=== PATIENT | female | born 1945 | race Caucasian/White ===

== ENCOUNTER 2018-06-25 11:42 | Inpatient (IN) ==
[2018-06-25] MEDS ORDERED: Sod Chloride 0.9% Inj 1,000 ML IV.SIG ONE (11:53)
--- NOTE | 2018-06-25 12:09 | ED ---
HPI General Chief complaint: Nausea/Vomiting/Diarrhea Stated complaint: doctor sent Time Seen by Provider: 06/25/18 11:51 Source: patient and family Mode of arrival: wheelchair Limitations: no limitations History of Present Illness HPI Narrative: 72-year-old female that presents to the ED for evaluation of hypotension as well as dehydration. Patient has a history of antral cancer. She is currently being treated for this. She got chemo and radiation. She last did chemotherapy 2 weeks ago. Per patient since yesterday she is been having no nausea vomiting diarrhea but this has been apparently going for a little longer. Patient denies any chest pain or shortness of breath. She does have some lower abdominal pain which she believes is related to the radiation which she does had last week. She apparently went to see Dr. oliva today and I recommend that she comes here because she was very hypotensive on the exam and she seemed very weak. She did had a blood transfusion on Saturday and she has a history of chronic anemia and iron deficiency. She follows with tyree for this. She denies any trauma or falls. She states that the diarrhea is just liquidy. She states that she currently takes pain pills and she does not really have much pain until she does point to her lower abdomen as the area of pain if she has any. Patient feels like a cramping pain. 2 out of 10. She does have a PICC line. No urinary issues. Related Data Home Medications Medication Instructions Recorded Confirmed cimetidine [Tagamet HB] 200 mg PO TID 06/09/18 06/25/18 levothyroxine [Synthroid] 50 mcg PO DAILY 06/09/18 06/25/18 omeprazole magnesium [Prilosec] 40 mg PO DAILY 06/09/18 06/25/18 zolpidem 12.5 mg PO 06/25/18 Allergies Allergy/AdvReac Type Severity Reaction Status Date / Time No Known Allergies Allergy Verified 06/25/18 12:06 Review of Systems ROS: all other systems reviewed are negative PMFSH History History Provided By: Patient and Family Member Medical History Medical History Cervical cancer (Acute) FH: chemotherapy (Acute) Mixed connective tissue disease (Acute) Rectal cancer (Acute) Social History Social History Substance History: No History of Abuse Second Hand Smoke Exposure: No Smoking Status: Former smoker How Often Do You Have a Drink Containing Alcohol: Never Exam Narrative Exam Narrative: GENERAL: Well appearing SKIN: Focused skin assessment warm/dry. HEAD: Atraumatic. Normocephalic. EYES: Pupils equal and round. No scleral icterus. No injection or drainage. ENT: No nasal bleeding or discharge. Mucous membranes pink and moist. Tongue is midline. No uvula deviation. NECK: Trachea midline. No JVD. CARDIOVASCULAR: Regular rate and rhythm. No murmur appreciated. RESPIRATORY: No accessory muscle use. Clear to auscultation. Breath sounds equal bilaterally. GASTROINTESTINAL: Abdomen soft, tender to touch in the lower abdomen, nondistended. Hepatic and splenic margins not palpable. MUSCULOSKELETAL: No obvious deformities. No clubbing. No cyanosis. No edema. Full range of motion of the upper and lower extremities bilaterally. 2+ pulses bilaterally. NEUROLOGICAL: Awake and alert. No obvious cranial nerve deficits. Motor grossly within normal limits. Normal speech. PSYCHIATRIC: Appropriate mood and affect; insight and judgment normal. Course Initial Documented Vital Signs Temperature 97.5 F L 06/25/18 11:46 Pulse Rate 119 H 06/25/18 11:46 Respiratory Rate 20 06/25/18 11:46 Blood Pressure 70/50 L 06/25/18 11:46 Pulse Oximetry 98 06/25/18 11:46 Last Documented Vital Signs Temperature 98.8 F 06/26/18 04:00 Pulse Rate 115 H 06/26/18 06:00 Respiratory Rate 31 H 06/26/18 06:00 Blood Pressure 90/54 L 06/26/18 06:00 Pulse Oximetry 77 L 06/26/18 02:30 Medical Decision Making SABRINA Attestation SABRINA supervised visit: Yes Attestation: I, Dr. Farfan, have reviewed the advance practice practitioner's documentation and am in agreement, met with the patient face to face, made the diagnosis, and the medical decision making was done by me. *My assessment and Findings: Patient sent to the ED from oncologist office due to weakness. Workup here reveals significant dehydration the patient will be admitted for IV fluids and electrolyte management. Prior VS on record from prior visits demonstrate relative tachycardia in 90s. MDM Narrative Medical decision making narrative: 72-year-old female that presents to the ED for evaluation of hypotension and nausea vomiting diarrhea. Labs and imaging were ordered. Patient was given IV fluids. Labs and imaging showed what appears to be acute kidney injury. Hypokalemia and slight hyponatremia. Patient still somewhat hypotensive but not as severe. Recommendation at this time is for admission for further evaluation and fluids. Patient agrees with this. Patient was admitted to Dr. Harris agrees to admission. My attending Dr. Farfan evaluated the patient himself and agrees with admission plan and treatment plan. Medical Screen Exam Complete: Yes Emergency Medical Condition: Yes Differential Diagnosis Differential Diagnosis: Hypotension versus dehydration versus anemia versus symptomatic anemia versus sepsis Medical Records Medical records reviewed: Yes I reviewed the patient's medical records. Lab Data Lab results reviewed: Yes I reviewed the patient's lab results. Result diagrams: 06/26/18 03:04 06/26/18 03:04 Lab Results 06/25/18 06/25/18 06/25/18 Range/Units 12:10 12:10 12:21 WBC 1.6 L (4.0-11.0) th/mm3 RBC 4.14 (4.00-5.30) mil/mm3 Hgb 10.2 L (11.6-15.3) gm/dL Hct 31.7 L (35.0-46.0) % MCV 76.4 L (80.0-100.0) fL MCH 24.6 L (27.0-34.0) pg MCHC 32.2 (32.0-36.0) % RDW 17.7 H (11.6-17.2) % Plt Count 54 L D (150-450) th/mm3 MPV 9.0 (7.0-11.0) fL Prelim Diff (Auto) Slide review pending Neut % (Auto) 71.3 H (16.0-70.0) % Lymph % (Auto) 1.3 L (9.0-44.0) % Brown % (Auto) 26.7 H (0.0-8.0) % Eos % (Auto) 0.1 (0.0-4.0) % Baso % (Auto) 0.6 (0.0-2.0) % Neut # (Auto) 1.1 L (1.8-7.7) th/mm3 Lymph # (Auto) 0.0 L (1.0-4.8) th/mm3 Brown # (Auto) 0.4 (0.0-0.9) th/mm3 Eos # (Auto) 0.0 (0.0-0.4) th/mm3 Baso # (Auto) 0.0 (0.0-0.2) th/mm3 WBC Differential Manual diff final Seg Neuts % (Manual) 30 (16-70) % Band Neuts % (Manual) 18 H (0-6) % Lymphocytes % (Manual) 3 L (9-44) % Monocytes % (Manual) 44 H (0-8) % Metamyelocytes % (Man) 4 H (0-1) % Myelocytes % (Man) 1 H (0-0) % Abs Neuts (Manual) 0.8 L (1.8-7.7) th/mm3 Differential Comment . Toxic Granulation (None) Dohle Bodies (None) Platelet Estimate Low L (Normal) Platelet Morphology Normal (Normal) RBC Morphology (Normal) Ovalocytes 1+ H (None) Darwin Cells 1+ H (None) Acanthocytes (Spur) Occ H (None) Sodium 134 L (136-145) meq/L Potassium 2.4 L* (3.5-5.1) meq/L Chloride 99 (98-107) meq/L Carbon Dioxide 19.9 L (21.0-32.0) meq/L Anion Gap 15 (5-15) meq/L BUN 57 H (7-18) mg/dL Creatinine 1.36 H (0.50-1.00) mg/dL Estimated GFR 38 L (>89) mL/min Random Glucose 95 (74-106) mg/dL Lactic Acid (0.4-2.0) mmol/L Calcium 7.9 L (8.5-10.1) mg/dL Prot Corrected Calcium (8.5-10.1) mg/dL Total Bilirubin 1.0 (0.2-1.0) mg/dL AST 60 H (15-37) U/L ALT 38 (10-53) U/L Alkaline Phosphatase 27 L (45-117) U/L Total Protein 6.2 L (6.4-8.2) g/dL Albumin 2.1 L (3.4-5.0) g/dL Lipase 25 L (73-393) U/L Nasal Screen MRSA (PCR) (Negative) MTS Gel Crossmatch See Detail 06/25/18 06/25/18 06/26/18 Range/Units 12:25 16:30 03:04 WBC 1.5 L (4.0-11.0) th/mm3 RBC 4.82 (4.00-5.30) mil/mm3 Hgb 12.6 D (11.6-15.3) gm/dL Hct 36.8 (35.0-46.0) % MCV 76.4 L (80.0-100.0) fL MCH 26.2 L (27.0-34.0) pg MCHC 34.3 (32.0-36.0) % RDW 17.5 H (11.6-17.2) % Plt Count 41 L (150-450) th/mm3 MPV 9.0 (7.0-11.0) fL Prelim Diff (Auto) Manual diff required Neut % (Auto) (16.0-70.0) % Lymph % (Auto) (9.0-44.0) % Brown % (Auto) (0.0-8.0) % Eos % (Auto) (0.0-4.0) % Baso % (Auto) (0.0-2.0) % Neut # (Auto) (1.8-7.7) th/mm3 Lymph # (Auto) (1.0-4.8) th/mm3 Brown # (Auto) (0.0-0.9) th/mm3 Eos # (Auto) (0.0-0.4) th/mm3 Baso # (Auto) (0.0-0.2) th/mm3 WBC Differential Manual diff final Seg Neuts % (Manual) 18 (16-70) % Band Neuts % (Manual) 62 H (0-6) % Lymphocytes % (Manual) 2 L (9-44) % Monocytes % (Manual) 16 H (0-8) % Metamyelocytes % (Man) 1 (0-1) % Myelocytes % (Man) 1 H (0-0) % Abs Neuts (Manual) 1.2 L (1.8-7.7) th/mm3 Differential Comment . Toxic Granulation 1+ H (None) Dohle Bodies Present H (None) Platelet Estimate Low L (Normal) Platelet Morphology Enlarged H (Normal) RBC Morphology Normal (Normal) Ovalocytes (None) Darwin Cells (None) Acanthocytes (Spur) (None) Sodium (136-145) meq/L Potassium (3.5-5.1) meq/L Chloride (98-107) meq/L Carbon Dioxide (21.0-32.0) meq/L Anion Gap (5-15) meq/L BUN (7-18) mg/dL Creatinine (0.50-1.00) mg/dL Estimated GFR (>89) mL/min Random Glucose (74-106) mg/dL Lactic Acid 1.5 (0.4-2.0) mmol/L Calcium (8.5-10.1) mg/dL Prot Corrected Calcium (8.5-10.1) mg/dL Total Bilirubin (0.2-1.0) mg/dL AST (15-37) U/L ALT (10-53) U/L Alkaline Phosphatase (45-117) U/L Total Protein (6.4-8.2) g/dL Albumin (3.4-5.0) g/dL Lipase (73-393) U/L Nasal Screen MRSA (PCR) Not detected (Negative) MTS Gel Crossmatch 06/26/18 Range/Units 03:04 WBC (4.0-11.0) th/mm3 RBC (4.00-5.30) mil/mm3 Hgb (11.6-15.3) gm/dL Hct (35.0-46.0) % MCV (80.0-100.0) fL MCH (27.0-34.0) pg MCHC (32.0-36.0) % RDW (11.6-17.2) % Plt Count (150-450) th/mm3 MPV (7.0-11.0) fL Prelim Diff (Auto) Neut % (Auto) (16.0-70.0) % Lymph % (Auto) (9.0-44.0) % Brown % (Auto) (0.0-8.0) % Eos % (Auto) (0.0-4.0) % Baso % (Auto) (0.0-2.0) % Neut # (Auto) (1.8-7.7) th/mm3 Lymph # (Auto) (1.0-4.8) th/mm3 Brown # (Auto) (0.0-0.9) th/mm3 Eos # (Auto) (0.0-0.4) th/mm3 Baso # (Auto) (0.0-0.2) th/mm3 WBC Differential Seg Neuts % (Manual) (16-70) % Band Neuts % (Manual) (0-6) % Lymphocytes % (Manual) (9-44) % Monocytes % (Manual) (0-8) % Metamyelocytes % (Man) (0-1) % Myelocytes % (Man) (0-0) % Abs Neuts (Manual) (1.8-7.7) th/mm3 Differential Comment Toxic Granulation (None) Dohle Bodies (None) Platelet Estimate (Normal) Platelet Morphology (Normal) RBC Morphology (Normal) Ovalocytes (None) Darwin Cells (None) Acanthocytes (Spur) (None) Sodium 141 (136-145) meq/L Potassium 3.5 D (3.5-5.1) meq/L Chloride 109 H D (98-107) meq/L Carbon Dioxide 19.9 L (21.0-32.0) meq/L Anion Gap 12 (5-15) meq/L BUN 56 H (7-18) mg/dL Creatinine 1.36 H (0.50-1.00) mg/dL Estimated GFR 38 L (>89) mL/min Random Glucose 195 H D (74-106) mg/dL Lactic Acid (0.4-2.0) mmol/L Calcium 6.9 L* D (8.5-10.1) mg/dL Prot Corrected Calcium 7.9 L (8.5-10.1) mg/dL Total Bilirubin (0.2-1.0) mg/dL AST (15-37) U/L ALT (10-53) U/L Alkaline Phosphatase (45-117) U/L Total Protein 5.1 L D (6.4-8.2) g/dL Albumin (3.4-5.0) g/dL Lipase (73-393) U/L Nasal Screen MRSA (PCR) (Negative) MTS Gel Crossmatch Imaging Data Attestation: I personally reviewed and interpreted this imaging study as follows : Radiologist's impression: Abdomen/Pelvis CT 06/25/18 00:00 CONCLUSION: 1. No significant change compared to the previous examination dated 04/17/2018. 2. Multiple fluid-filled dilated loops of small bowel suggesting possible partial small bowel obstruction or ileus. Clinical correlation is recommended. 3. The rectum is unchanged in appearance compared to the previous examination although its evaluation is limited without oral contrast. The patient has a history of rectal carcinoma. Uncomplicated colonic diverticulosis is noted. 4. Stable cystic left adnexal lesion measuring 5.6 x 3.1 cm which may represent an ovarian cyst. 5. Distended gallbladder. 6. Multiple stable calcified nonobstructing bilateral renal calculi. 7. Multiple bilateral renal cysts. 8. Hiatal hernia. 9. Degenerative changes throughout the lumbar spine. Chest X-Ray 06/25/18 11:53 CONCLUSION: PICC line in good position otherwise negative Discharge Plan Discharge Disposition Patient Disposition: 30 Still Patient Discharge Details Diagnosis: Acute kidney injury, Rectal cancer, Dehydration, Nausea and vomiting, Diarrhea , Acute hypotension Physicians Team ED Provider: Piero Farfan ED Midlevel Provider: Nima Corona Primary Care Provider: Lei Palomo Attending Provider: Biju Harris Other Providers: Deniz Coelho Abdul Status ED Status: Left Department Discharge Information Discharge Date/Time: 06/25/18 17:40
[2018-06-25 12:54] LABS: Baso % (Auto) 0.6 % (0.0-2.0); Eos % (Auto) 0.1 % (0.0-4.0); Hematocrit 31.7 % (35.0-46.0); Hemoglobin 10.2 gm/dL (11.6-15.3); Lymph % (Auto) 1.3 % (9.0-44.0); Mean Corpuscular HGB Conc 32.2 % (32.0-36.0); Mean Corpuscular Hemoglobin 24.6 pg (27.0-34.0); Mean Corpuscular Volume 76.4 fL (80.0-100.0); Mono # (Auto) 0.4 th/mm3 (0.0-0.9); Mono % (Auto) 26.7 % (0.0-8.0); Neut # (Auto) 1.1 th/mm3 (1.8-7.7); Neut % (Auto) 71.3 % (16.0-70.0); Platelet Count 54 th/mm3 (150-450); Red Blood Count 4.14 mil/mm3 (4.00-5.30); Red Cell Distribution Width 17.7 % (11.6-17.2); White Blood Count 1.6 th/mm3 (4.0-11.0)
[2018-06-25 13:20] LABS: Alanine Aminotransferase 38 U/L (10-53); Albumin 2.1 g/dL (3.4-5.0); Alkaline Phosphatase 27 U/L (45-117); Anion Gap 15 meq/L (5-15); Aspartate Aminotransferase 60 U/L (15-37); Blood Urea Nitrogen 57 mg/dL (7-18); Calcium 7.9 mg/dL (8.5-10.1); Carbon Dioxide 19.9 meq/L (21.0-32.0); Chloride 99 meq/L (98-107); Glomerular Filtration Rate 38 mL/min (>89); Glucose,Random 95 mg/dL (74-106); Lipase 25 U/L (73-393); Sodium 134 meq/L (136-145); Total Protein 6.2 g/dL (6.4-8.2)
--- NOTE | 2018-06-25 13:24 | XR ---
EXAM DATE: 06/25/2018 11:53 AM EDT AGE/SEX: 72 years / Female INDICATIONS: Shortness of breath. CLINICAL DATA: This is the patient's initial encounter. Patient reports that signs and symptoms have been present for 3 days and indicates a pain score of 0/10. MEDICAL/SURGICAL HISTORY: Diverticulitis. Gastroesophageal reflux disease. Carcinoma, cervica l. None. COMPARISON: C, CHEST 1V SINGLE AP, 06/16/2018. . FINDINGS: A single AP view of the chest demonstrates the lungs to be symmetrically aerated without evidence of mass, infiltrate or effusion. The cardiomediastinal contours are unremarkable. Osseous structures a re intact. PICC line in good position. CONCLUSION: PICC line in good position otherwise negative Electronically signed by: Meet Gipson MD 06/25/2018 1:22 PM EDT
[2018-06-25 13:31] LABS: Potassium 2.4 meq/L (3.5-5.1)
[2018-06-25 13:58] LABS: Lymphocytes 3 % (9-44); Metamyelocytes 4 % (0-1); Monocytes 44 % (0-8); Myelocytes 1 % (0-0)
[2018-06-25 13:59] LABS: Ovalocytes 1+; Platelet Morphology Normal (Normal)
[2018-06-25 14:00] LABS: Acanthocytes Occ; Burr Cells 1+
--- NOTE | 2018-06-25 14:55 | P.HP ---
History of Present Illness Primary Care Physician: Lei Palomo MD Chief Complaint: generalized weakness, diarrhea, anorexia History of Present Illness: Patient is 72-year-old female with history of mixed connective tissue disease, cervical cancer status post hysterectomy, history of anal/rectal cancer, GERD seen as an outpatient by Dr. Sosa. As outpatient presented with diarrhea and with perianal pain followed by rectal bleeding. She was referred to colorectal surgery where he was seen by Dr. Coelho and initially was thought to be thrombosed hemorrhoids. A colonoscopy showed ulcerated mass with pathology showing squamous cell carcinoma. Patient is undergoing radiation therapy daily for 6 weeks Saturday to Saturday till june. On evaluation today was noted to be pale and weak and Dr. Concepcion felt patient is too weak for treatment and was sent over here for further evaluation Patient subjectively feels fever, denies any cough, patient states she is now incontinent of stools, mainly complains of rectal pain. Generalized weakness. Has Percocet prn for pain On evaluation the ER with an acute kidney injury and hypokalemic and hypotensive. \ Patient admitted for further evaluation and management Inpatient Certification: I certify that the inpatient services were ordered in accordance with Medicare regulations governing the order. This includes certification that hospital inpatient services are reasonable and necessary and in the case of services not specified as inpatient-only under 42 CFR 419.22(n), that they are appropriately provided as inpatient services in accordance to with the 2-midnight benchmark under 43 CFR 412.3(e) Estimated Total Length of Stay (Days): 3 Plans for Post Hospital Care: Not yet determined PMFSH - History History Provided By: Patient, Family Member - Medical History Medical History: Medical History (Last Reviewed 06/29/18 @ 09:16 by Dot Templeton Medicaid Analyst, [employer]) Diverticulosis GERD (gastroesophageal reflux disease) Hx of cervical cancer Hypothyroidism Raynaud phenomenon FH: chemotherapy Mixed connective tissue disease Rectal cancer - Surgical History Surgical History: Surgical History (Last Reviewed 06/28/18 @ 07:25 by Radha Price) History of hysterectomy (Acute) History of biopsy Hx of appendectomy Hx of colonoscopy Hx of lumpectomy - Family History Family History: Family History (Last Reviewed 06/27/18 @ 15:42 by DAMI Eldridge) Brother Multiple sclerosis - Tobacco History Second Hand Smoke Exposure: No Smoking Status: Former smoker - Alcohol History How Often Do You Have a Drink Containing Alcohol: Never - Substance Use History Substance History: No History of Abuse - Immunization History Tetanus Immunization: Unsure Hx Influenza Vaccine This Season: No Medications and Allergies Active Medications: Active Medications Potassium Chloride 30 meq/ (Dextrose/Sodium Chloride) 1,015 mls @ 100 mls/hr IV.CONT .Q10H9M PABLO Potassium Chloride (Kcl 20 Meq Premix Inj) 20 meq in 100 mls @ 50 mls/hr IV.SIG ONCE ONE Stop: 06/25/18 16:59 Allergies Allergy/AdvReac Type Severity Reaction Status Date / Time No Known Allergies Allergy Verified 06/25/18 12:06 Home Medications Medication Instructions Recorded Confirmed Type cimetidine [Tagamet HB] 200 mg PO TID 06/09/18 06/25/18 History levothyroxine [Synthroid] 50 mcg PO DAILY 06/09/18 06/25/18 History omeprazole magnesium [Prilosec] 40 mg PO DAILY 06/09/18 06/25/18 History zolpidem 12.5 mg PO 06/25/18 History Exam Vital signs: Vital Signs 06/25/18 11:46 06/25/18 11:49 Temperature 97.5 F L Pulse Rate 119 H 130 H Respiratory Rate 20 16 Blood Pressure 70/50 L 85/50 L Pulse Oximetry 98 99 Intake & Output 06/24/18 06/25/18 06/25/18 18:59 06:59 18:59 Weight 45.359 kg Narrative: Patient awake alert very frail and weak blood pressure is 19 9/60 heart rate of 108 temperature is 97.9 8 HEENT exam anicteric sclerae pink palpebral conjunctivae, very dry oral mucosa neck was supple no nuchal rigidity chest lungs decreased breath sounds no rales no wheezes heart regular rhythm tachycardic Abdomen is soft but tenderness on palpation especially of the both lower abdominal and suprapubic area questionable bladder distention Examination of the anal area shows sudden large ulcerated cauliflower-like mass protruding from the rectum tender to touch Lower extremity extremities no edema Right upper extremity with PICC line in place no signs of infection Neurologic exam ANO x3 clear speech cranial nerves grossly intact motor moves all extremities equally but weak Results - Labs CBC & Chem 7: 07/07/18 04:20 07/07/18 04:20 Labs: Laboratory Results - last 24 hr 06/25/18 06/25/18 06/25/18 12:10 12:10 12:21 WBC 1.6 L RBC 4.14 Hgb 10.2 L Hct 31.7 L MCV 76.4 L MCH 24.6 L MCHC 32.2 RDW 17.7 H Plt Count 54 L D MPV 9.0 Prelim Diff (Auto) Slide review pending Neut % (Auto) 71.3 H Lymph % (Auto) 1.3 L [place] % (Auto) 26.7 H Eos % (Auto) 0.1 Baso % (Auto) 0.6 Neut # (Auto) 1.1 L Lymph # (Auto) 0.0 L [place] # (Auto) 0.4 Eos # (Auto) 0.0 Baso # (Auto) 0.0 WBC Differential Manual diff final Seg Neuts % (Manual) 30 Band Neuts % (Manual) 18 H Lymphocytes % (Manual) 3 L Monocytes % (Manual) 44 H Metamyelocytes % (Man) 4 H Myelocytes % (Man) 1 H Abs Neuts (Manual) 0.8 L Differential Comment . Platelet Estimate Low L Platelet Morphology Normal Ovalocytes 1+ H Darwin Cells 1+ H Acanthocytes (Spur) Occ H Sodium 134 L Potassium 2.4 L* Chloride 99 Carbon Dioxide 19.9 L Anion Gap 15 BUN 57 H Creatinine 1.36 H Estimated GFR 38 L Random Glucose 95 Lactic Acid Calcium 7.9 L Total Bilirubin 1.0 AST 60 H ALT 38 Alkaline Phosphatase 27 L Total Protein 6.2 L Albumin 2.1 L Lipase 25 L MTS Gel Crossmatch See Detail 06/25/18 12:25 WBC RBC Hgb Hct MCV MCH MCHC RDW Plt Count MPV Prelim Diff (Auto) Neut % (Auto) Lymph % (Auto) [place] % (Auto) Eos % (Auto) Baso % (Auto) Neut # (Auto) Lymph # (Auto) [place] # (Auto) Eos # (Auto) Baso # (Auto) WBC Differential Seg Neuts % (Manual) Band Neuts % (Manual) Lymphocytes % (Manual) Monocytes % (Manual) Metamyelocytes % (Man) Myelocytes % (Man) Abs Neuts (Manual) Differential Comment Platelet Estimate Platelet Morphology Ovalocytes Darwin Cells Acanthocytes (Spur) Sodium Potassium Chloride Carbon Dioxide Anion Gap BUN Creatinine Estimated GFR Random Glucose Lactic Acid 1.5 Calcium Total Bilirubin AST ALT Alkaline Phosphatase Total Protein Albumin Lipase MTS Gel Crossmatch - Imaging Impressions Chest X-Ray 06/25/18 11:53 CONCLUSION: PICC line in good position otherwise negative Caprini VTE Risk Assessment Caprini VTE Risk Assessment: Moderate/High Risk (score >= 2) VTE Pharmacological Exception Reason: Thrombocytopenia (<50) (pancytopenic, platelet ct 54) Caprini Risk Assessment Model: Point Value = 1 Point Value = 2 Point Value = 3 Point Value = 5 Age 41-60 Minor surgery BMI > 25 kg/m2 Swollen legs Varicose veins or History of unexplained or recurrent spontaneous Oral contraceptives or hormone replacement Sepsis (< 1 month) Serious lung disease, including pneumonia (< 1 month) Abnormal pulmonary function Acute myocardial infarction Congestive heart failure (< 1 month) History of inflammatory bowel disease Medical patient at bed rest Age 61-74 Arthroscopic surgery Major open surgery (> 45 min) Laparoscopic surgery (> 45 min) Malignancy Confined to bed (> 72 hours) Immobilizing plaster cast Central venous access Age >= 75 History of VTE Family history of VTE Factor V Leiden Prothrombin [id number] Lupus anticoagulant Anticardiolipin antibodies Elevated serum homocysteine Heparin-induced thrombocytopenia Other congenital or acquired thrombophilia Stroke (< 1 month) Elective arthroplasty Hip, pelvis, or leg fracture Acute spinal cord injury (< 1 month) Prophylaxis Regimen: Total Risk Factor Score Risk Level Prophylaxis Regimen 0-1 Low Early ambulation 2 Moderate Order ONE of the following: *Sequential Compression Device (SCD) *Heparin 5000 units SQ BID 3-4 Higher Order ONE of the following medications: *Heparin 5000 units SQ TID *Enoxaparin/Lovenox 40 mg SQ daily (WT < 150 kg, CrCl > 30 mL/min) *Enoxaparin/Lovenox 30 mg SQ daily (WT < 150 kg, CrCl > 10-29 mL/min) *Enoxaparin/Lovenox 30 mg SQ BID (WT < 150 kg, CrCl > 30 mL/min) AND/OR *Sequential Compression Device (SCD) 5 or more Highest Order ONE of the following medications: *Heparin 5000 units SQ TID (Preferred with Epidurals) *Enoxaparin/Lovenox 40 mg SQ daily (WT < 150 kg, CrCl > 30 mL/min) *Enoxaparin/Lovenox 30 mg SQ daily (WT < 150 kg, CrCl > 10-29 mL/min) *Enoxaparin/Lovenox 30 mg SQ BID (WT < 150 kg, CrCl > 30 mL/min) AND *Sequential Compression Device (SCD) Assessment and Plan - Plan 72-year-old female recently diagnosed with SIRS-secondary to dehydration- Hypotension on initial evaluation secondary to dehydration - 1L bolus- start maintenance IVF -admit to [facility] for close monitoring Acute kidney injury -Patient given 1 L normal saline bolus -Will start on maintenance IV fluids Hypokalemia secondary to diarrhea -Give KCl 20 mEq bolus through PICC line -IV fluid with KCl - Follow BMP Anal cancer undergoing radiation therapy -tender abdomen. -Get CT of the abdomen and pelvis. -IV Dilaudid prn for pain - diet- clears for now Persistent pain and diarrhea r/o radiation colitis -Will get colorectal consult-known to Dr. Coelho. ?candidate for diverting colostomy Pancytopenia- Neutropenia/thrombocytopenia s/p Recent chemo. Iron deficiency anemia=-H and h improved - received IV Venofer as OP - lactic acid normal. afebrile -We will also consult oncologist= Dr. Ramirez History of hypothyroidism -continue on her synthroid History of GERD -Start IV Protonix. -DC Tagamet with thrombovytopenia and GREY History of MCTD Teds and SCDs for DVT prophylaxis
[2018-06-25] MEDS ORDERED: Potassium Chlor 20 mEq Premix 20 MEQ/100 ML PIGGYBACK IV.SIG ONE (15:00)
--- NOTE | 2018-06-25 15:31 | CT ---
EXAM DATE: 06/25/2018 2:58 PM EDT AGE/SEX: 72 years / Female INDICATIONS: Abdominal pain, history of rectal cancer. CLINICAL DATA: This is the patient's initial encounter. Patient reports that signs and symptoms have been present for 1 day and indicates a pain score of 5/10. MEDICAL/SURGICAL HISTORY: Carcinoma, cervical. Carcinoma, rectal. None. RADIATION DOSE: 6.35 CTDI (mGy) COMPARISON: T[facility], CT ABDOMEN AND PELVIS W/ CONTRAST, 04/17/2018. . TECHNIQUE: Multiple contiguous axial images were obtained through the abdomen. Images were obtained using multiple row detector helical technique. Using automated exposure control and adjustment of the mA and/or kV according to patient size, radiation dose was kept as low as reasonably achievable to o btain optimal diagnostic quality images. DICOM format image data is available electronically for rev iew and comparison. FINDINGS: Lower Lungs: The visualized lower lungs are clear. Liver: The liver is stable in appearance compared to previous examination. Its evaluation is limited without intravenous contrast. The gallbladder is distended. There is no dilation of the biliary tree. Spleen: Homogeneous density without enlargement. Pancreas: Unremarkable without mass or calcification. Kidneys: There are multiple stable calcified nonobstructing bilateral renal calculi with the largest on the left measuring 12 mm. Multiple bilateral renal cysts are also noted. Adrenal Glands: Unremar kable. Aorta: The aorta and proximal iliac vessels are grossly unremarkable without aneurysmal dilation. Bowel/Mesentery: A hiatal hernia is again noted and is filled with fluid. There are fluid-filled dil ated loops of small bowel suggesting partial small bowel obstruction or ileus. The rectum is unchange d in appearance compared to the previous examination although its evaluation is limited without oral contrast. The patient has a history of rectal carcinoma. Uncomplicated colonic diverticulosis is not ed. Abdominal Wall: Intact. Retroperitoneum: No evidence of adenopathy in the retrocrural, para-aortic, or deep pelvic regions. Bladder: Contours are smooth. Reproductive Organs: There is a stable cystic left adnexal lesion measuring 5.6 x 3.1 cm which may r epresent an ovarian cyst. Inguinal: The inguinal region is unremarkable without evidence of adenopathy. Bony Structures: Degenerative changes are noted throughout the lumbar spine. CONCLUSION: 1. No significant change compared to the previous examination dated 04/17/2018. 2. Multiple fluid-filled dilated loops of small bowel suggesting possible partial small bowel obstru ction or ileus. Clinical correlation is recommended. 3. The rectum is unchanged in appearance compared to the previous examination although its evaluatio n is limited without oral contrast. The patient has a history of rectal carcinoma. Uncomplicated col onic diverticulosis is noted. 4. Stable cystic left adnexal lesion measuring 5.6 x 3.1 cm which may represent an ovarian cyst. 5. Distended gallbladder. 6. Multiple stable calcified nonobstructing bilateral renal calculi. 7. Multiple bilateral renal cysts. 8. Hiatal hernia. 9. Degenerative changes throughout the lumbar spine. Electronically signed by: Kulwant Garza MD 06/25/2018 3:30 PM EDT
[2018-06-25] MEDS: Potassium Chloride Inj 30 MEQ in Dextrose 5%/NaCl 0.9% Inj 1,000 ML IV.CONT SCH (15:47)
[2018-06-25] MEDS: Pantoprazole Inj 40 MG Vial IV.PUSH SCH ×2 (17:09→20:32)
[2018-06-25] MEDS: HYDROmorphone PF Inj 2 MG/ML Vial IV.PUSH PRN (17:10)
[2018-06-25] MEDS ORDERED: Diphenoxylate/Atropine 2.5/0.025 MG Tablet PO PRN (21:35)
--- NOTE | 2018-06-25 22:22 | MB ---
cc: Eva Ramirez MD,Deniz Concepcion,Nabor Harris,Biju Ball MD DATE: 06/25/2018 REASON FOR CONSULTATION: Consult requested by Dr. Harris for evaluation and management of rectal cancer, in a patient who is admitted with intractable diarrhea, nausea, vomiting ,dehydration, and hypotension. HISTORY OF PRESENT ILLNESS: Savana is a pleasant 72-year-old female. She recently presented to Dr. Coelho for anal pain and rectal bleeding since 01/2018. She had a colonoscopy which showed ulcerated area with rolled margins in the anorectal area. 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 Dr. Coelho recommended combined concurrent radiation and chemotherapy. She was referred to Dr. Concepcion and the undersigned. She had a PET scan on 05/30/2018 which showed large hypermetabolic Anorectal mass. There was no evidence of local or distant metastatic disease. On 06/09/2018, she was started on radiation and combined concurrent chemotherapy with mitomycin and 5-FU. She has tolerated the first cycle of chemotherapy extremely well. She also has iron deficiency anemia due to intermittent rectal bleeding since 01/2018. She has been receiving Venofer iron infusion. So far, she had received 2/3 iron infusions. She also has received blood transfusion last week Saturday for severe symptomatic anemia. The patient went to see Dr. Concepcion today for the radiation treatment. She was not feeling well. She was hypotensive. She has intractable diarrhea, nausea, and unable to keep anything down or eat due to the persistent nausea. Radiation was held, and she was referred to the emergency room for further evaluation. In the emergency room, the patient had blood workup. She has severe hypokalemia and acute renal failure. She is now admitted to the hospital. She is in the intensive care unit where I am seeing her at this time. The patient has severe diarrhea, intractable nausea and at times vomiting. She cannot keep anything down. 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 She was recently started on Percocet which does not seem to be helping. She feels miserable. She does not have any fever but she feels warm. The rest of the review of systems is negative. PAST MEDICAL HISTORY: Anorectal cancer, squamous cell carcinoma, diverticulosis, gastroesophageal reflux disease, Cueto esophagus, hemorrhoids, hypothyroidism, iron deficiency anemia, osteoporosis, mixed connective tissue disorder, kidney stones. She had cervical cancer at the age of 27 and underwent hysterectomy but did not require any radiation or chemotherapy. PAST SURGICAL HISTORY: Appendectomy, upper endoscopy and colonoscopy, sigmoid polypectomy, and rectal mass biopsy. Breast biopsy, lumpectomy, hysterectomy. ALLERGIES: NONE. MEDICATIONS PRIOR TO COMING TO HOSPITAL: Synthroid, omeprazole, Ambien, Percocet, Compazine, Zofran. FAMILY HISTORY: Both parents of old age. She has had 2 brothers. One from diabetes mellitus complications. One has multiple sclerosis. She has 1 sister, 1 son and 2 daughters, all are alive and well. SOCIAL HISTORY: The patient is . 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 She quit smoking 2 years ago. Occasionally drinks alcohol. PHYSICAL EXAMINATION: GENERAL: A well-developed, ill-appearing white female in moderate distress. VITAL SIGNS: Temperature 97.7, heart rate is 105, respiratory rate 17, blood pressure is 101/56, O2 saturation was 99%. HEENT: PERRLA. EOMI. Oral mucosa is dry. NECK: No lymphadenopathy noted. LUNGS: Clear. No wheezing. No crackles. CARDIOVASCULAR: Regular rate and rhythm. ABDOMEN: Diffusely tender. EXTREMITIES: No pedal edema. NEUROLOGIC: Awake, alert, oriented x3. SKIN: No significant lesions noted. ASSESSMENT AND PLAN: 1. Squamous cell carcinoma of the anorectum, status post 1 cycle of chemotherapy Mitomycin and 5-FU started on 06/09/2018. She had received 5 days of chemotherapy, completed on 06/13/2018. The patient is currently receiving radiation therapy since 06/09/18. 2. Intractable diarrhea from radiation and chemotherapy. 3. Intractable nausea from chemotherapy plus radiation treatment. 4. Dehydration from diarrhea and unable to eat or drink due to persistent nausea. 5. Hypokalemia due to diarrhea. 6. Acute renal failure due to dehydration. 7. Pancytopenia due to radiation and chemotherapy. PLAN: I have discussed with the patient regarding her clinical condition. She has developed severe diarrhea, not controlled with the Imodium. 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 She is unable to eat or drink due to the nausea. Her creatinine has gone up from 0.65 to 1.36 in 1 week. This is prerenal azotemia. Agree with fluid challenge and hydration. I expect her creatinine to improve with that. She has pancytopenia with a white count of 1.6, and the absolute neutrophil count is 1100. Platelet count is 54, and hemoglobin is 10.2. She does not require any platelet transfusion. She had 2 units of blood transfusion last week, Saturday, and also had received iron infusion, Venofer 2/3 infusions. The patient is currently receiving blood transfusion for hemoglobin of 10.2. She does not have any fever, but she feels warm. Blood cultures and Urinalysis has been done. The results are still pending. I will start her on Neupogen for leukopenia and mild neutropenia. We will also give her Lomotil for the diarrhea. I expect her to improve in the next few days. Radiation will be put on hold for now. I have discuss the case with DR Coelho and Dr Concepcion. Patient has asked questions, and were answered to her satisfaction. Thank you for asking my opinion. MD JOSE F Hines/marley , 09:31 PM , 09:51 PM JESSY
[2018-06-26] MEDS: HYDROmorphone PF Inj 2 MG/ML Vial IV.PUSH PRN ×4 (00:07→21:08)
[2018-06-26] MEDS: Potassium Chloride Inj 30 MEQ in Dextrose 5%/NaCl 0.9% Inj 1,000 ML IV.CONT SCH ×3 (00:51→19:07)
[2018-06-26 04:34] LABS: Hematocrit 36.8 % (35.0-46.0); Hemoglobin 12.6 gm/dL (11.6-15.3); Mean Corpuscular HGB Conc 34.3 % (32.0-36.0); Mean Corpuscular Hemoglobin 26.2 pg (27.0-34.0); Mean Corpuscular Volume 76.4 fL (80.0-100.0); Platelet Count 41 th/mm3 (150-450); Red Blood Count 4.82 mil/mm3 (4.00-5.30); Red Cell Distribution Width 17.5 % (11.6-17.2); White Blood Count 1.5 th/mm3 (4.0-11.0)
[2018-06-26 05:02] LABS: Calcium 6.9 mg/dL (8.5-10.1); Carbon Dioxide 19.9 meq/L (21.0-32.0); Potassium 3.5 meq/L (3.5-5.1)
[2018-06-26 05:17] LABS: Total Protein 5.1 g/dL (6.4-8.2)
[2018-06-26 05:25] LABS: Lymphocytes 2 % (9-44); Metamyelocytes 1 % (0-1); Monocytes 16 % (0-8); Myelocytes 1 % (0-0); Toxic Granulation 1+
[2018-06-26 05:26] LABS: Dohle Bodies Present; RBC Morphology Normal (Normal)
[2018-06-26] MEDS: Levothyroxine 50 MCG Tablet PO SCH (05:43)
[2018-06-26] MEDS: Pantoprazole Inj 40 MG Vial IV.PUSH SCH ×2 (09:07→20:25)
--- NOTE | 2018-06-26 10:56 | P.PN ---
Physical Exam Vital signs: Vital Signs 06/25/18 11:46 06/25/18 11:49 06/25/18 15:30 Temperature 97.5 F L 97.7 F Pulse Rate 119 H 130 H 105 H Respiratory Rate 20 16 17 Blood Pressure 70/50 L 85/50 L 101/56 L Pulse Oximetry 98 99 99 06/25/18 16:43 06/25/18 17:00 06/25/18 17:30 Temperature Pulse Rate 118 H 115 H 114 H Respiratory Rate 25 H 23 16 Blood Pressure 96/59 L 87/52 L Pulse Oximetry 94 L 06/25/18 18:00 06/25/18 18:30 06/25/18 18:57 Temperature 99.5 F Pulse Rate 115 H 117 H 120 H Respiratory Rate 15 13 24 Blood Pressure 91/55 L 86/52 L 84/55 L Pulse Oximetry 99 98 06/25/18 19:00 06/25/18 19:30 06/25/18 20:00 Temperature 101.2 F H Pulse Rate 120 H 117 H 119 H Respiratory Rate 12 14 15 Blood Pressure 84/55 L 88/57 L 98/58 L Pulse Oximetry 98 100 100 06/25/18 20:30 06/25/18 21:00 06/25/18 21:30 Temperature Pulse Rate 127 H 123 H 128 H Respiratory Rate 26 H 17 19 Blood Pressure 105/57 L 90/52 L 93/59 L Pulse Oximetry 98 95 94 L 06/25/18 22:00 06/25/18 22:30 06/25/18 23:00 Temperature Pulse Rate 132 H 129 H 122 H Respiratory Rate 26 H 30 H 31 H Blood Pressure 94/59 L 99/59 L 90/53 L Pulse Oximetry 95 95 96 06/25/18 23:30 06/25/18 23:44 06/26/18 00:00 Temperature 98.6 F Pulse Rate 120 H 120 H 116 H Respiratory Rate 23 25 H 25 H Blood Pressure 88/55 L 113/60 Pulse Oximetry 96 96 97 06/26/18 00:01 06/26/18 00:09 06/26/18 00:30 Temperature Pulse Rate 116 H 119 H 115 H Respiratory Rate 22 23 17 Blood Pressure 85/53 L 93/52 L 94/55 L Pulse Oximetry 96 96 97 06/26/18 01:00 06/26/18 01:30 06/26/18 02:00 Temperature Pulse Rate 119 H 120 H 117 H Respiratory Rate 26 H 33 H 29 H Blood Pressure 105/60 100/64 90/59 L Pulse Oximetry 97 97 98 06/26/18 02:30 06/26/18 03:00 06/26/18 03:30 Temperature Pulse Rate 122 H 117 H 114 H Respiratory Rate 32 H 33 H 24 Blood Pressure 115/72 119/72 117/65 Pulse Oximetry 77 L 06/26/18 04:00 06/26/18 04:30 06/26/18 05:00 Temperature 98.8 F Pulse Rate 116 H 108 H 112 H Respiratory Rate 29 H 20 34 H Blood Pressure 119/72 96/57 L Pulse Oximetry 06/26/18 05:30 06/26/18 06:00 Temperature Pulse Rate 112 H 115 H Respiratory Rate 34 H 31 H Blood Pressure 99/52 L 90/54 L Pulse Oximetry Intake & Output 06/25/18 06/26/18 06/26/18 18:59 06:59 18:59 Intake Total 1500 / 1500 1829 / 1829 Balance 1500 / 1500 1829 / 1829 Weight 45.359 kg 54.5 kg Intake: IV 1100 / 1100 1069 / 1069 KCl Inj 30 MEQ In D5W/Normal 1015 / 1015 Saline Inj 1,000 ML @ 125 mls/ hr IV.CONT .Q8H8M [facility] Rx#: [id number] Zofran Inj 8 MG In D5W Inj 50 54 / 54 ML @ 216 mls/hr IV.SIG ONCE ONE Rx#:[id number] KCl 20 mEq Premix Inj 20 meq In 100 / 100 100 ml @ 50 mls/hr IV.SIG ONCE ONE Rx#:[id number] NS Inj 1,000 ML @ Wide Open IV. 1000 / 1000 SIG BOLUS ONE Rx#:[id number] Oral 360 / 360 Intake (Blood Product) Amt 400 / 400 400 / 400 Rbc As-3 Leukoreduced Unit 400 / 400 [id number] Rbc As-3 Leukoreduced Unit 400 / 400 [id number] Other: # Incontinent Voids 4 Results - Labs CBC & Chem 7: 06/26/18 03:04 06/26/18 03:04 Laboratory Results - last 24 hr 06/25/18 06/25/18 06/25/18 12:10 12:10 12:21 WBC 1.6 L RBC 4.14 Hgb 10.2 L Hct 31.7 L MCV 76.4 L MCH 24.6 L MCHC 32.2 RDW 17.7 H Plt Count 54 L D MPV 9.0 Prelim Diff (Auto) Slide review pending Neut % (Auto) 71.3 H Lymph % (Auto) 1.3 L [place] % (Auto) 26.7 H Eos % (Auto) 0.1 Baso % (Auto) 0.6 Neut # (Auto) 1.1 L Lymph # (Auto) 0.0 L [place] # (Auto) 0.4 Eos # (Auto) 0.0 Baso # (Auto) 0.0 WBC Differential Manual diff final Seg Neuts % (Manual) 30 Band Neuts % (Manual) 18 H Lymphocytes % (Manual) 3 L Monocytes % (Manual) 44 H Metamyelocytes % (Man) 4 H Myelocytes % (Man) 1 H Abs Neuts (Manual) 0.8 L Differential Comment . Toxic Granulation Dohle Bodies Platelet Estimate Low L Platelet Morphology Normal RBC Morphology Ovalocytes 1+ H Darwin Cells 1+ H Acanthocytes (Spur) Occ H Sodium 134 L Potassium 2.4 L* Chloride 99 Carbon Dioxide 19.9 L Anion Gap 15 BUN 57 H Creatinine 1.36 H Estimated GFR 38 L Random Glucose 95 Lactic Acid Calcium 7.9 L Prot Corrected Calcium Total Bilirubin 1.0 AST 60 H ALT 38 Alkaline Phosphatase 27 L Total Protein 6.2 L Albumin 2.1 L Lipase 25 L Nasal Screen MRSA (PCR) MTS Gel Crossmatch See Detail 06/25/18 06/25/18 06/26/18 12:25 16:30 03:04 WBC 1.5 L RBC 4.82 Hgb 12.6 D Hct 36.8 MCV 76.4 L MCH 26.2 L MCHC 34.3 RDW 17.5 H Plt Count 41 L MPV 9.0 Prelim Diff (Auto) Manual diff required Neut % (Auto) Lymph % (Auto) [place] % (Auto) Eos % (Auto) Baso % (Auto) Neut # (Auto) Lymph # (Auto) [place] # (Auto) Eos # (Auto) Baso # (Auto) WBC Differential Manual diff final Seg Neuts % (Manual) 18 Band Neuts % (Manual) 62 H Lymphocytes % (Manual) 2 L Monocytes % (Manual) 16 H Metamyelocytes % (Man) 1 Myelocytes % (Man) 1 H Abs Neuts (Manual) 1.2 L Differential Comment . Toxic Granulation 1+ H Dohle Bodies Present H Platelet Estimate Low L Platelet Morphology Enlarged H RBC Morphology Normal Ovalocytes Darwin Cells Acanthocytes (Spur) Sodium Potassium Chloride Carbon Dioxide Anion Gap BUN Creatinine Estimated GFR Random Glucose Lactic Acid 1.5 Calcium Prot Corrected Calcium Total Bilirubin AST ALT Alkaline Phosphatase Total Protein Albumin Lipase Nasal Screen MRSA (PCR) Not detected MTS Gel Crossmatch 06/26/18 03:04 WBC RBC Hgb Hct MCV MCH MCHC RDW Plt Count MPV Prelim Diff (Auto) Neut % (Auto) Lymph % (Auto) [place] % (Auto) Eos % (Auto) Baso % (Auto) Neut # (Auto) Lymph # (Auto) [place] # (Auto) Eos # (Auto) Baso # (Auto) WBC Differential Seg Neuts % (Manual) Band Neuts % (Manual) Lymphocytes % (Manual) Monocytes % (Manual) Metamyelocytes % (Man) Myelocytes % (Man) Abs Neuts (Manual) Differential Comment Toxic Granulation Dohle Bodies Platelet Estimate Platelet Morphology RBC Morphology Ovalocytes Adrwin Cells Acanthocytes (Spur) Sodium 141 Potassium 3.5 D Chloride 109 H D Carbon Dioxide 19.9 L Anion Gap 12 BUN 56 H Creatinine 1.36 H Estimated GFR 38 L Random Glucose 195 H D Lactic Acid Calcium 6.9 L* D Prot Corrected Calcium 7.9 L Total Bilirubin AST ALT Alkaline Phosphatase Total Protein 5.1 L D Albumin Lipase Nasal Screen MRSA (PCR) MTS Gel Crossmatch Microbiology 06/25/18 12:10 Blood - Peripheral Aerobic Blood Culture - Preliminary 06/25/18 12:10 Blood - Peripheral Anaerobic Blood Culture - Final QNS - See aerobic report. 06/25/18 12:25 Blood - Peripheral Aerobic Blood Culture - Preliminary gram negative rods 06/25/18 12:25 Blood - Peripheral Anaerobic Blood Culture - Final QNS - See aerobic report. - Imaging Impressions Abdomen/Pelvis CT 06/25/18 00:00 CONCLUSION: 1. No significant change compared to the previous examination dated 04/17/2018. 2. Multiple fluid-filled dilated loops of small bowel suggesting possible partial small bowel obstruction or ileus. Clinical correlation is recommended. 3. The rectum is unchanged in appearance compared to the previous examination although its evaluation is limited without oral contrast. The patient has a history of rectal carcinoma. Uncomplicated colonic diverticulosis is noted. 4. Stable cystic left adnexal lesion measuring 5.6 x 3.1 cm which may represent an ovarian cyst. 5. Distended gallbladder. 6. Multiple stable calcified nonobstructing bilateral renal calculi. 7. Multiple bilateral renal cysts. 8. Hiatal hernia. 9. Degenerative changes throughout the lumbar spine. Chest X-Ray 06/25/18 11:53 CONCLUSION: PICC line in good position otherwise negative Assessment and Plan - Plan hold xrt for now. Discussed with dr. vidal
--- NOTE | 2018-06-26 14:20 | P.PN ---
Subjective Interval history: awake and alert still with persistent diarrhea/stooling + abdominal discomfort Physical Exam Vital signs: Vital Signs 06/25/18 15:30 06/25/18 16:43 06/25/18 17:00 Temperature 97.7 F Pulse Rate 105 H 118 H 115 H Respiratory Rate 17 25 H 23 Blood Pressure 101/56 L 96/59 L Pulse Oximetry 99 06/25/18 17:30 06/25/18 18:00 06/25/18 18:30 Temperature Pulse Rate 114 H 115 H 117 H Respiratory Rate 16 15 13 Blood Pressure 87/52 L 91/55 L 86/52 L Pulse Oximetry 94 L 99 06/25/18 18:57 06/25/18 19:00 06/25/18 19:30 Temperature 99.5 F Pulse Rate 120 H 120 H 117 H Respiratory Rate 24 12 14 Blood Pressure 84/55 L 84/55 L 88/57 L Pulse Oximetry 98 98 100 06/25/18 20:00 06/25/18 20:30 06/25/18 21:00 Temperature 101.2 F H Pulse Rate 119 H 127 H 123 H Respiratory Rate 15 26 H 17 Blood Pressure 98/58 L 105/57 L 90/52 L Pulse Oximetry 100 98 95 06/25/18 21:30 06/25/18 22:00 06/25/18 22:30 Temperature Pulse Rate 128 H 132 H 129 H Respiratory Rate 19 26 H 30 H Blood Pressure 93/59 L 94/59 L 99/59 L Pulse Oximetry 94 L 95 95 06/25/18 23:00 06/25/18 23:30 06/25/18 23:44 Temperature Pulse Rate 122 H 120 H 120 H Respiratory Rate 31 H 23 25 H Blood Pressure 90/53 L 88/55 L 113/60 Pulse Oximetry 96 96 96 06/26/18 00:00 06/26/18 00:01 06/26/18 00:09 Temperature 98.6 F Pulse Rate 116 H 116 H 119 H Respiratory Rate 25 H 22 23 Blood Pressure 85/53 L 93/52 L Pulse Oximetry 97 96 96 06/26/18 00:30 06/26/18 01:00 06/26/18 01:30 Temperature Pulse Rate 115 H 119 H 120 H Respiratory Rate 17 26 H 33 H Blood Pressure 94/55 L 105/60 100/64 Pulse Oximetry 97 97 97 06/26/18 02:00 06/26/18 02:30 06/26/18 03:00 Temperature Pulse Rate 117 H 122 H 117 H Respiratory Rate 29 H 32 H 33 H Blood Pressure 90/59 L 115/72 119/72 Pulse Oximetry 98 77 L 06/26/18 03:30 06/26/18 04:00 06/26/18 04:30 Temperature 98.8 F Pulse Rate 114 H 116 H 108 H Respiratory Rate 24 29 H 20 Blood Pressure 117/65 119/72 96/57 L Pulse Oximetry 06/26/18 05:00 06/26/18 05:30 06/26/18 06:00 Temperature Pulse Rate 112 H 112 H 115 H Respiratory Rate 34 H 34 H 31 H Blood Pressure 99/52 L 90/54 L Pulse Oximetry Intake & Output 06/25/18 06/26/18 06/26/18 18:59 06:59 18:59 Intake Total 1500 / 1500 1829 / 1829 1015 / 1015 Balance 1500 / 1500 1829 / 1829 1015 / 1015 Weight 45.359 kg 54.5 kg Intake: IV 1100 / 1100 1069 / 1069 1015 / 1015 KCl Inj 30 MEQ In D5W/Normal 1015 / 1015 1015 / 1015 Saline Inj 1,000 ML @ 125 mls/ hr IV.CONT .Q8H8M [facility] Rx#: [id number] Zofran Inj 8 MG In D5W Inj 50 54 / 54 ML @ 216 mls/hr IV.SIG ONCE ONE Rx#:[id number] KCl 20 mEq Premix Inj 20 meq In 100 / 100 100 ml @ 50 mls/hr IV.SIG ONCE ONE Rx#:[id number] NS Inj 1,000 ML @ Wide Open IV. 1000 / 1000 SIG BOLUS ONE Rx#:[id number] Oral 360 / 360 Intake (Blood Product) Amt 400 / 400 400 / 400 Rbc As-3 Leukoreduced Unit 400 / 400 [id number] Rbc As-3 Leukoreduced Unit 400 / 400 [id number] Other: # Incontinent Voids 4 Narrative: Patient awake alert very frail and weak HEENT exam anicteric sclerae pink palpebral conjunctivae, very dry oral mucosa neck was supple no nuchal rigidity chest lungs decreased breath sounds no rales no wheezes heart regular rhythm tachycardic Abdomen is soft but tenderness on palpation especially of the both lower abdominal and suprapubic area Examination of the anal area shows sudden large ulcerated cauliflower-like mass protruding from the rectum tender to touch Lower extremity extremities no edema Right upper extremity with PICC line in place no signs of infection Neurologic exam ANO x3 clear speech cranial nerves grossly intact motor moves all extremities equally but weak Results - Labs CBC & Chem 7: 06/26/18 03:04 06/26/18 03:04 Laboratory Results - last 24 hr 06/25/18 06/25/18 06/26/18 12:21 16:30 03:04 WBC 1.5 L RBC 4.82 Hgb 12.6 D Hct 36.8 MCV 76.4 L MCH 26.2 L MCHC 34.3 RDW 17.5 H Plt Count 41 L MPV 9.0 Prelim Diff (Auto) Manual diff required WBC Differential Manual diff final Seg Neuts % (Manual) 18 Band Neuts % (Manual) 62 H Lymphocytes % (Manual) 2 L Monocytes % (Manual) 16 H Metamyelocytes % (Man) 1 Myelocytes % (Man) 1 H Abs Neuts (Manual) 1.2 L Differential Comment . Toxic Granulation 1+ H Dohle Bodies Present H Platelet Estimate Low L Platelet Morphology Enlarged H RBC Morphology Normal Sodium Potassium Chloride Carbon Dioxide Anion Gap BUN Creatinine Estimated GFR Random Glucose Calcium Prot Corrected Calcium Total Protein Nasal Screen MRSA (PCR) Not detected MTS Gel Crossmatch See Detail 06/26/18 03:04 WBC RBC Hgb Hct MCV MCH MCHC RDW Plt Count MPV Prelim Diff (Auto) WBC Differential Seg Neuts % (Manual) Band Neuts % (Manual) Lymphocytes % (Manual) Monocytes % (Manual) Metamyelocytes % (Man) Myelocytes % (Man) Abs Neuts (Manual) Differential Comment Toxic Granulation Dohle Bodies Platelet Estimate Platelet Morphology RBC Morphology Sodium 141 Potassium 3.5 D Chloride 109 H D Carbon Dioxide 19.9 L Anion Gap 12 BUN 56 H Creatinine 1.36 H Estimated GFR 38 L Random Glucose 195 H D Calcium 6.9 L* D Prot Corrected Calcium 7.9 L Total Protein 5.1 L D Nasal Screen MRSA (PCR) MTS Gel Crossmatch Microbiology 06/25/18 12:10 Blood - Peripheral Aerobic Blood Culture - Preliminary 06/25/18 12:10 Blood - Peripheral Anaerobic Blood Culture - Final QNS - See aerobic report. 06/25/18 12:25 Blood - Peripheral Aerobic Blood Culture - Preliminary gram negative rods 06/25/18 12:25 Blood - Peripheral Anaerobic Blood Culture - Final QNS - See aerobic report. - Imaging Impressions Abdomen/Pelvis CT 06/25/18 00:00 CONCLUSION: 1. No significant change compared to the previous examination dated 04/17/2018. 2. Multiple fluid-filled dilated loops of small bowel suggesting possible partial small bowel obstruction or ileus. Clinical correlation is recommended. 3. The rectum is unchanged in appearance compared to the previous examination although its evaluation is limited without oral contrast. The patient has a history of rectal carcinoma. Uncomplicated colonic diverticulosis is noted. 4. Stable cystic left adnexal lesion measuring 5.6 x 3.1 cm which may represent an ovarian cyst. 5. Distended gallbladder. 6. Multiple stable calcified nonobstructing bilateral renal calculi. 7. Multiple bilateral renal cysts. 8. Hiatal hernia. 9. Degenerative changes throughout the lumbar spine. Assessment and Plan - Plan 72-year-old female recently diagnosed with Gram negative sepsis Hypotension on initial evaluation secondary to dehydration -continue IVF - started on Cefepime - ff cultures Acute kidney injury -Patient given 1 L normal saline bolus -on maintenance IV fluids Hypokalemia secondary to diarrhea- IMproved -Give KCl 20 mEq bolus through PICC line -IV fluid with KCl - Follow BMP Anal cancer undergoing radiation therapy Persistent pain and diarrhea r/o radiation colitis -colorectal consult-known to Dr. Coelho. ?candidate for diverting colostomy ff -IV Dilaudid prn for pain - diet- clears for now - CRS ff Pancytopenia- Neutropenia/thrombocytopenia s/p Recent chemo. Iron deficiency anemia=-H and h improved - received IV Venofer as OP - lactic acid normal. afebrile - started on steroids - Dr. Ramirez ff History of hypothyroidism -continue on her synthroid History of GERD -Start IV Protonix. -DC Tagamet with thrombovytopenia and GREY History of MCTD Teds and SCDs for DVT prophylaxis
[2018-06-26] MEDS ORDERED: Vancomycin Consult Pharmacy OTHER PRN (15:43)
--- NOTE | 2018-06-26 15:59 | P.PNONC ---
Subjective Interval history: T-max 101.2 F, hypotensive, tachycardic. Patient reports not feeling well. Still with frequent diarrhea and rectal pain. RN at the bedside. Patient noted to have a purple hue to her right great toe and rubor to her remaining toes, cool to touch. RN states her fingers and toes have been improving in color and patient states she has raynauds syndrome. RN will put socks on pts feet to warm them. pulses present. Pt having loose BM during exam, reports abdominal pain. Objective Vital Signs/Intake & Output: Vital Signs 06/25/18 15:30 06/25/18 16:43 06/25/18 17:00 Temperature 97.7 F Pulse Rate 105 H 118 H 115 H Respiratory Rate 17 25 H 23 Blood Pressure 101/56 L 96/59 L Pulse Oximetry 99 06/25/18 17:30 06/25/18 18:00 06/25/18 18:30 Temperature Pulse Rate 114 H 115 H 117 H Respiratory Rate 16 15 13 Blood Pressure 87/52 L 91/55 L 86/52 L Pulse Oximetry 94 L 99 06/25/18 18:57 06/25/18 19:00 06/25/18 19:30 Temperature 99.5 F Pulse Rate 120 H 120 H 117 H Respiratory Rate 24 12 14 Blood Pressure 84/55 L 84/55 L 88/57 L Pulse Oximetry 98 98 100 06/25/18 20:00 06/25/18 20:30 06/25/18 21:00 Temperature 101.2 F H Pulse Rate 119 H 127 H 123 H Respiratory Rate 15 26 H 17 Blood Pressure 98/58 L 105/57 L 90/52 L Pulse Oximetry 100 98 95 06/25/18 21:30 06/25/18 22:00 06/25/18 22:30 Temperature Pulse Rate 128 H 132 H 129 H Respiratory Rate 19 26 H 30 H Blood Pressure 93/59 L 94/59 L 99/59 L Pulse Oximetry 94 L 95 95 06/25/18 23:00 06/25/18 23:30 06/25/18 23:44 Temperature Pulse Rate 122 H 120 H 120 H Respiratory Rate 31 H 23 25 H Blood Pressure 90/53 L 88/55 L 113/60 Pulse Oximetry 96 96 96 06/26/18 00:00 06/26/18 00:01 06/26/18 00:09 Temperature 98.6 F Pulse Rate 116 H 116 H 119 H Respiratory Rate 25 H 22 23 Blood Pressure 85/53 L 93/52 L Pulse Oximetry 97 96 96 06/26/18 00:30 06/26/18 01:00 06/26/18 01:30 Temperature Pulse Rate 115 H 119 H 120 H Respiratory Rate 17 26 H 33 H Blood Pressure 94/55 L 105/60 100/64 Pulse Oximetry 97 97 97 06/26/18 02:00 06/26/18 02:30 06/26/18 03:00 Temperature Pulse Rate 117 H 122 H 117 H Respiratory Rate 29 H 32 H 33 H Blood Pressure 90/59 L 115/72 119/72 Pulse Oximetry 98 77 L 06/26/18 03:30 06/26/18 04:00 06/26/18 04:30 Temperature 98.8 F Pulse Rate 114 H 116 H 108 H Respiratory Rate 24 29 H 20 Blood Pressure 117/65 119/72 96/57 L Pulse Oximetry 06/26/18 05:00 06/26/18 05:30 06/26/18 06:00 Temperature Pulse Rate 112 H 112 H 115 H Respiratory Rate 34 H 34 H 31 H Blood Pressure 99/52 L 90/54 L Pulse Oximetry 06/26/18 12:00 Temperature Pulse Rate Respiratory Rate 18 Blood Pressure Pulse Oximetry Intake & Output 06/25/18 06/26/18 06/26/18 18:59 06:59 18:59 Intake Total 1500 / 1500 1829 / 1829 1015 / 1015 Balance 1500 / 1500 1829 / 1829 1015 / 1015 Weight 45.359 kg 54.5 kg Intake: IV 1100 / 1100 1069 / 1069 1015 / 1015 KCl Inj 30 MEQ In D5W/Normal 1015 / 1015 1015 / 1015 Saline Inj 1,000 ML @ 125 mls/ hr IV.CONT .Q8H8M PABLO Rx#: [id number] Zofran Inj 8 MG In D5W Inj 50 54 / 54 ML @ 216 mls/hr IV.SIG ONCE ONE Rx#:[id number] KCl 20 mEq Premix Inj 20 meq In 100 / 100 100 ml @ 50 mls/hr IV.SIG ONCE ONE Rx#:[id number] NS Inj 1,000 ML @ Wide Open IV. 1000 / 1000 SIG BOLUS ONE Rx#:[id number] Oral 360 / 360 Intake (Blood Product) Amt 400 / 400 400 / 400 Rbc As-3 Leukoreduced Unit 400 / 400 [id number] Rbc As-3 Leukoreduced Unit 400 / 400 [id number] Other: # Incontinent Voids 4 Result Diagrams: 06/26/18 03:04 06/26/18 03:04 Laboratory Results: Laboratory Results - last 24 hr 06/25/18 06/25/18 06/26/18 12:21 16:30 03:04 WBC 1.5 L RBC 4.82 Hgb 12.6 D Hct 36.8 MCV 76.4 L MCH 26.2 L MCHC 34.3 RDW 17.5 H Plt Count 41 L MPV 9.0 Prelim Diff (Auto) Manual diff required WBC Differential Manual diff final Seg Neuts % (Manual) 18 Band Neuts % (Manual) 62 H Lymphocytes % (Manual) 2 L Monocytes % (Manual) 16 H Metamyelocytes % (Man) 1 Myelocytes % (Man) 1 H Abs Neuts (Manual) 1.2 L Differential Comment . Toxic Granulation 1+ H Dohle Bodies Present H Platelet Estimate Low L Platelet Morphology Enlarged H RBC Morphology Normal Sodium Potassium Chloride Carbon Dioxide Anion Gap BUN Creatinine Estimated GFR Random Glucose Calcium Prot Corrected Calcium Total Protein Nasal Screen MRSA (PCR) Not detected MTS Gel Crossmatch See Detail 06/26/18 03:04 WBC RBC Hgb Hct MCV MCH MCHC RDW Plt Count MPV Prelim Diff (Auto) WBC Differential Seg Neuts % (Manual) Band Neuts % (Manual) Lymphocytes % (Manual) Monocytes % (Manual) Metamyelocytes % (Man) Myelocytes % (Man) Abs Neuts (Manual) Differential Comment Toxic Granulation Dohle Bodies Platelet Estimate Platelet Morphology RBC Morphology Sodium 141 Potassium 3.5 D Chloride 109 H D Carbon Dioxide 19.9 L Anion Gap 12 BUN 56 H Creatinine 1.36 H Estimated GFR 38 L Random Glucose 195 H D Calcium 6.9 L* D Prot Corrected Calcium 7.9 L Total Protein 5.1 L D Nasal Screen MRSA (PCR) MTS Gel Crossmatch Culture Results: Microbiology 06/25/18 12:25 Aerobic Blood Culture - Preliminary Blood - Peripheral Pseudomonas aeruginosa Anaerobic Blood Culture - Final QNS - See aerobic report. 06/25/18 12:10 Aerobic Blood Culture - Preliminary Blood - Peripheral Anaerobic Blood Culture - Final QNS - See aerobic report. Imaging Studies: Impressions Abdomen/Pelvis CT 06/25/18 00:00 CONCLUSION: 1. No significant change compared to the previous examination dated 04/17/2018. 2. Multiple fluid-filled dilated loops of small bowel suggesting possible partial small bowel obstruction or ileus. Clinical correlation is recommended. 3. The rectum is unchanged in appearance compared to the previous examination although its evaluation is limited without oral contrast. The patient has a history of rectal carcinoma. Uncomplicated colonic diverticulosis is noted. 4. Stable cystic left adnexal lesion measuring 5.6 x 3.1 cm which may represent an ovarian cyst. 5. Distended gallbladder. 6. Multiple stable calcified nonobstructing bilateral renal calculi. 7. Multiple bilateral renal cysts. 8. Hiatal hernia. 9. Degenerative changes throughout the lumbar spine. Medications: Active Medications Generic Name Dose Route Start Last Admin Trade Name Freq PRN Reason Stop Dose Admin Dexamethasone Sodium Phosphate 4 mg 06/26/18 00:00 06/26/18 12:08 Decadron Inj IV.PUSH 4 mg Q6HR PABLO Administration Filgrastim 480 mcg 06/25/18 22:00 06/26/18 14:08 Neupogen Inj SQ 480 mcg DAILY@1400 PABLO Administration Hydromorphone HCl 0.5 mg 06/26/18 14:00 06/26/18 14:08 Dilaudid Pf Inj IV.PUSH 0.5 mg Q3H PRN Administration PAIN 3-10 Cefepime HCl 2,000 mg/ Sodium 100 mls @ 200 mls/hr 06/26/18 14:00 06/26/18 14 :07 Chloride IV.SIG 200 mls/hr Q12H PABLO Administration Levothyroxine Sodium 50 mcg 06/26/18 06:00 06/26/18 05:43 Synthroid PO 50 mcg DAILY@0600 PABLO Administration Ondansetron HCl 4 mg 06/26/18 04:31 06/26/18 04:43 Zofran Inj IV.PUSH 4 mg Q6H PRN Administration NAUSEA OR VOMITING Pantoprazole Sodium 40 mg 06/25/18 16:00 06/26/18 09:07 Protonix Inj IV.PUSH 40 mg Q12HR PABLO Administration Promethazine HCl 12.5 mg 06/26/18 00:00 06/26/18 12:08 Phenergan PO 12.5 mg Q6H PABLO Administration Objective Remarks: GENERAL: Ill-appearing female patient. SKIN: Warm and dry. Right upper extremity PICC line, no erythema, drsg dry/ intact. HEAD: Normocephalic. EYES: No scleral icterus. No injection or drainage. NECK: Supple, trachea midline. CARDIOVASCULAR: Tachycardic. RESPIRATORY: Breath sounds equal bilaterally. No accessory muscle use. GASTROINTESTINAL: Abdomen soft, tender, nondistended. EXTREMITIES: No edema. Purple hue to right great toe, remaining toes and fingers rubor. cool to touch. + bilateral Dp, PT pulses MUSCULOSKELETAL: Decreased muscle tone. NEUROLOGICAL: No obvious focal deficit. Awake, alert, and oriented x3. PSYCHIATRIC: Appropriate mood and affect; insight and judgment normal. Assessment/Plan - Plan Ms. 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 She had received 5 days of chemotherapy, completed on 06/13/2018. She is currently receiving radiation therapy which started on she was admitted for acute renal failure related to dehydration, intractable diarrhea from radiation chemotherapy. Plan: 1. Squamous cell carcinoma of the anorectum, status post first cycle of chemotherapy with mitomycin and 5-FU, completed on 06/13/2018. Currently receiving radiation therapy. 2. Acute renal failure due to dehydration. Management per attending. On IV fluids. 3. Fever, T-max 101.2 F. Blood culture growing pseudomonas aeruginosa. Currently on cefepime. Will consult infectious disease and start vancomycin. 4. Pancytopenia, status post chemotherapy. WBC 1.5, ANC 1200 today. Currently on Neupogen. Hemoglobin stable at 12.6. Platelets low at 41,000. 5. Discoloration to right great toe, patient reportedly has raynaud's syndrome. Keep extremities warm. Continue to monitor closely. Will order coags to evaluate for DIC. 6. 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 Continue good hygiene after each loose stool, continue to apply barrier cream. - Attending Statement The exam, history, and the medical decision-making described in the above note were completed with the assistance of the mid-level provider. I reviewed and agree with the findings presented. I attest that I had a [id number] encounter with the patient on the same day, and personally performed and documented my assessment and findings in the medical record. lethargic, hypotensive. febrile. Pt has gram negative sepsis. Consult city driver and ID. D/W DR Lawson city driver who is talking to ID Dr Etienne over the phone. Start merepenam, oral Vanco. D/C cefepime. continue vanco IV. d/c phenergan. Darshan RN
[2018-06-26] MEDS ORDERED: Vancomycin Inj 1,000 MG in Sodium Chlor 0.9% Inj 250 ML IV.SIG ONE (16:00)
--- NOTE | 2018-06-26 19:42 | P.CONCC ---
History of Present Illness Service: Critical care medicine Consult date: 06/26/18 Requesting Physician: Sapna Robert Reason for Consult: Sepsis Primary Care Provider: Lei Palomo MD Chief Complaint: generalized weakness, diarrhea, anorexia History of Present Illness: Patient is lethargic and therefore most of the history was obtained by review of EMR, some discussion with her sister, and discussion with Dr. Ramirez 72-year-old female with past medical history of anorectal squamous cell carcinoma, mixed connective tissue disease (SLE, Reynaud's, Polymyositis), remote cervical cancer status post hysterectomy, hypothyroid . She originally developed anal pain and bleeding in January of 2018. She was referred to Dr. Coelho who performed biopsy of anal mass on 04/25/18 which demonstrated invasive squamous cell carcinoma. Outpatient PET reportedly showed no local or distant metastatic disease. She has been undergoing radiation therapy under the care of Dr Concepcion. Concurrent chemotherapy is planned for week 1 and 5 of radiation; and she completed first chemo cycle 06/13/18. She has reportedly been having loose watery stools for several days, difficult to determine exact time of onset. She has also had abdominal pain. When she presented for radiation treatment on 06/25, she was weak and hypotensive so she was sent to the ED. She was pancytopenic with ANC 768. CT abd/pelvis showed fluid filled small bowel c/ w partial SBO or ileus. She was admitted to hospitalist service. Blood cultures were obtained 09/25 which have now resulted + pseudomonas in 1/4 bottles. She was started on cefepime 2 gram IV and vancomycin per hematology. Tmax was 101.2 Wildlife Photographer consult has been requested. She has a RUE PICC placed 06/09 which does not have overt clinical signs of infection, but will be removed. Review of Systems All other systems reviewed negative except as stated in HPI PMFSH - History History Provided By: Patient, Family Member - Medical History Medical History: Medical History (Last Updated 06/27/18 @ 09:09 by Yuliya Lawson MD) Diverticulosis GERD (gastroesophageal reflux disease) History of hysterectomy Hx of cervical cancer Hypothyroidism FH: chemotherapy Mixed connective tissue disease Rectal cancer - Surgical History Surgical History: Surgical History (Last Updated 06/27/18 @ 09:10 by Yuliya Lawson MD) History of biopsy Hx of appendectomy Hx of colonoscopy Hx of lumpectomy - Family History Family History: Family History (Last Updated 06/27/18 @ 09:10 by Yuliya Lawson MD) Brother Multiple sclerosis - Tobacco History Second Hand Smoke Exposure: No Smoking Status: Former smoker - Alcohol History How Often Do You Have a Drink Containing Alcohol: Never - Substance Use History Substance History: No History of Abuse - Immunization History Tetanus Immunization: Unsure Hx Influenza Vaccine This Season: No Medications and Allergies Active Medications: Active Medications Dexamethasone Sodium Phosphate (Decadron Inj) 4 mg IV.PUSH Q6HR REPLACED BY [facility] Last Admin: 06/26/18 17:15 Dose: 4 mg Diphenoxylate HCl/Atropine (Lomotil) 2 tab PO Q6H PRN PRN Reason: DIARRHEA Filgrastim (Neupogen Inj) 480 mcg SQ DAILY@1400 REPLACED BY [facility] Last Admin: 06/26/18 14:08 Dose: 480 mcg Hydromorphone HCl (Dilaudid Pf Inj) 0.5 mg IV.PUSH Q3H PRN PRN Reason: PAIN 3-10 Last Admin: 06/26/18 14:08 Dose: 0.5 mg Cefepime HCl 2,000 mg/ Sodium (Chloride) 100 mls @ 200 mls/hr IV.SIG Q12H REPLACED BY [facility] Last Infusion: 06/26/18 14:37 Dose: Infused Potassium Chloride 30 meq/ (Dextrose/Sodium Chloride) 1,015 mls @ 150 mls/hr IV.CONT .Q6H46M REPLACED BY [facility] Last Admin: 06/26/18 19:07 Dose: 150 mls/hr Vancomycin HCl 750 mg/ Sodium (Chloride) 257.5 mls @ 250 mls/hr IV.SIG Q24H REPLACED BY [facility] Sodium Chloride (Ns Inj) 1,000 mls @ 0 mls/hr IV.SIG BOLUS REPLACED BY [facility] Levothyroxine Sodium (Synthroid) 50 mcg PO DAILY@0600 REPLACED BY [facility] Last Admin: 06/26/18 05:43 Dose: 50 mcg Miscellaneous (Pill Splitter) 1 each OTHER UNSCH PRN PRN Reason: PILL SPIT Miscellaneous Information ([facility] Ordered Lab Info) 0 each OTHER ONCE ONE Stop: 06/29/18 15:46 Ondansetron HCl (Zofran Inj) 4 mg IV.PUSH Q6H PRN PRN Reason: NAUSEA OR VOMITING Last Admin: 06/26/18 04:43 Dose: 4 mg Pantoprazole Sodium (Protonix Inj) 40 mg IV.PUSH Q12HR REPLACED BY [facility] Last Admin: 06/26/18 09:07 Dose: 40 mg Pharmacy Profile Note (Vancomycin Consult Pharmacy) 1 each OTHER UNSCH PRN PRN Reason: Pharmacy to dose Promethazine HCl (Phenergan) 12.5 mg PO Q6H REPLACED BY [facility] Last Admin: 06/26/18 17:15 Dose: 12.5 mg Allergies Allergy/AdvReac Type Severity Reaction Status Date / Time No Known Allergies Allergy Verified 06/25/18 12:06 Home Medications Medication Instructions Recorded Confirmed Type cimetidine [Tagamet HB] 200 mg PO TID 06/09/18 06/25/18 History levothyroxine [Synthroid] 50 mcg PO DAILY 06/09/18 06/25/18 History omeprazole magnesium [Prilosec] 40 mg PO DAILY 06/09/18 06/25/18 History zolpidem 12.5 mg PO 06/25/18 History Physical Exam Vital signs: Vital Signs 06/25/18 20:00 06/25/18 20:30 06/25/18 21:00 Temperature 101.2 F H Pulse Rate 119 H 127 H 123 H Respiratory Rate 15 26 H 17 Blood Pressure 98/58 L 105/57 L 90/52 L Pulse Oximetry 100 98 95 06/25/18 21:30 06/25/18 22:00 06/25/18 22:30 Temperature Pulse Rate 128 H 132 H 129 H Respiratory Rate 19 26 H 30 H Blood Pressure 93/59 L 94/59 L 99/59 L Pulse Oximetry 94 L 95 95 06/25/18 23:00 06/25/18 23:30 06/25/18 23:44 Temperature Pulse Rate 122 H 120 H 120 H Respiratory Rate 31 H 23 25 H Blood Pressure 90/53 L 88/55 L 113/60 Pulse Oximetry 96 96 96 06/26/18 00:00 06/26/18 00:01 06/26/18 00:09 Temperature 98.6 F Pulse Rate 116 H 116 H 119 H Respiratory Rate 25 H 22 23 Blood Pressure 85/53 L 93/52 L Pulse Oximetry 97 96 96 06/26/18 00:30 06/26/18 01:00 06/26/18 01:30 Temperature Pulse Rate 115 H 119 H 120 H Respiratory Rate 17 26 H 33 H Blood Pressure 94/55 L 105/60 100/64 Pulse Oximetry 97 97 97 06/26/18 02:00 06/26/18 02:30 06/26/18 03:00 Temperature Pulse Rate 117 H 122 H 117 H Respiratory Rate 29 H 32 H 33 H Blood Pressure 90/59 L 115/72 119/72 Pulse Oximetry 98 77 L 06/26/18 03:30 06/26/18 04:00 06/26/18 04:30 Temperature 98.8 F Pulse Rate 114 H 116 H 108 H Respiratory Rate 24 29 H 20 Blood Pressure 117/65 119/72 96/57 L Pulse Oximetry 06/26/18 05:00 06/26/18 05:30 06/26/18 06:00 Temperature Pulse Rate 112 H 112 H 115 H Respiratory Rate 34 H 34 H 31 H Blood Pressure 99/52 L 90/54 L Pulse Oximetry 06/26/18 12:00 06/26/18 16:00 Temperature Pulse Rate Respiratory Rate 18 12 Blood Pressure Pulse Oximetry Intake & Output 06/26/18 06/26/18 06/27/18 06:59 18:59 06:59 Intake Total 1829 / 1829 1365 / 1365 1015 / 1015 Balance 1829 / 1829 1365 / 1365 1015 / 1015 Weight 54.5 kg Intake: IV 1069 / 1069 1365 / 1365 1015 / 1015 KCl Inj 30 MEQ In D5W/Normal 1015 / 1015 1015 / 1015 1015 / 1015 Saline Inj 1,000 ML @ 125 mls/ hr IV.CONT .Q8H8M REPLACED BY [facility] Rx#: [id number] Maxipime Inj 2,000 MG In NS Inj 100 / 100 100 ML @ 200 mls/hr IV.SIG Q12H PABLO Rx#:[id number] Zofran Inj 8 MG In D5W Inj 50 54 / 54 ML @ 216 mls/hr IV.SIG ONCE ONE Rx#:[id number] Vancomycin Inj 1,000 MG In NS 250 / 250 Inj 250 ML @ 200 mls/hr IV.SIG ONCE ONE Rx#:[id number] Oral 360 / 360 Intake (Blood Product) Amt 400 / 400 Rbc As-3 Leukoreduced Unit 400 / 400 [id number] Other: # Incontinent Voids 4 Narrative: GENERAL: Pale, frail, lethargic female who is laying in bed, occasionally moans. SKIN: Warm to touch. Dusky appearance to right great toe and fingers bilateral hands w/ hx reynauds. RUE PICC with no tenderness, erythema, or exudate. dressing c/d/i. HEAD: Atraumatic. Normocephalic. EYES: Pupils equal and round. No scleral icterus. No injection or drainage. ENT: No nasal bleeding or discharge. Mucous membranes dry. NECK: Trachea midline. No JVD. CARDIOVASCULAR: Regular rate and rhythm. No murmurs rubs or gallops. RESP: Tachypneic with no accessory muscle use. Clear to auscultation bilaterally. On nasal cannula. GASTROINTESTINAL: Abdomen mildly distended, tender to palpation in right mid abdomen and LLQ. No rebound or guarding. Dark violaceous irregular anal mass. MUSCULOSKELETAL: Extremities without clubbing, cyanosis, or edema. NEUROLOGICAL: Awakens to voice, answers questions with soft voice and short word fragments, difficult to understand. Moving all extremities focal deficit. Assessment and Plan - Assessment and Plan Plan: NEURO: Lethargy secondary to sepsis Dilaudid prn pain Phenergan discontinued her oncology due to the sedative effect. RESP: Nasal cannula wean as tolerated. Chest x-ray is clear. CV: Hypotension secondary to volume depletion and sepsis. Atrial fibrillation with RVR Patient appears volume depleted given 2 L normal saline bolus overnight due to hypotension and blood pressure normalized with MAP 70-77. Ordered Levophed to maintain mean arterial pressure greater than 65 however this ultimately was not required. She did have episode of atrial fibrillation with RVR with rate in the 150s. Initiated amiodarone bolus and amiodarone drip. May be able to discontinue in 24 hours as sepsis improves. 0.9 NaCl was at 150 mill liters per hour. Have progressively backed off IVF, now 100 ml/hr. GI: Diarrhea Abdominal pain Ileus Squamous cell carcinoma of the anus Moderate protein energy malnutrition NPO for bowel rest. Dr. Coelho following. FEN/RENAL: GREY Monitor intake and output. Monitor electrolytes. Replace electrolytes as indicated per ICU electrolyte replacement protocol. Check CPK and urine eosinophils ID: Pseudomonas bacteremia Severe sepsis with probable GI source f/u sensitivity of blood culture. Received cefepime 2 g IV. I discussed with Dr. Etienne who recommends meropenem 1 g IV every 12 hours to cover Pseudomonas. Will add aminoglycoside if patient is decompensating. Vancomycin 500 mg p.o. every 6 hours and follow-up C. difficile PCR. Continue vancomycin. Remove PICC 06/26. HEME: Squamous cell carcinoma anorectal Pancytopenia ANC 768--now 1200. On Neupogen per oncology. SCC anus - s/p chemo completed 06/13. Radiation therapy on hold per Dr. Concepcion. Decadron 4 mg IV q6 hours . ENDO: Acute hyperglycemia Monitor bedside glucose every 6 hours and initiate low-dose insulin sliding scale as indicated. PROPH: SCD for DVT prophylaxis. ACCESS: Remove right upper extremity PICC 06/26. placed L IJ CVL Full code Is critically ill with pancytopenia and sepsis with multiorgan dysfunction. She is hypotensive and at high risk for further deterioration and . I have discussed this with her daughter Maile Moss. Discussed with Dr. Etienne. Discussed with Dr. Ramirez. CCT 60 minutes exclusive of separately billable procedures
[2018-06-26] MEDS ORDERED: Sod Chloride 0.9% Inj 1,000 ML IV.SIG ONE ×2 (19:45→21:00)
--- NOTE | 2018-06-26 22:08 | P.PCN ---
Date of procedure: 06/26/18 Procedure: DATE: 06/26/18 CENTRAL LINE PLACEMENT: Left internal jugular vein. Left IJ site was chosen due to pancytopenia INDICATION: Central venous access CONSENT Informed consent for procedure was obtained from patient's daughter, Maile Moss, after discussion of risk, benefits, alternatives. Patient is very lethargic but provides verbal consent as well. DESCRIPTION OF THE PROCEDURE The patient was placed in supine position, mild Trendelenburg. The skin was cleansed with Chloraprep. x4 Additional barrier precautions included large sterile drape, sterile gloves, sterile gown, face mask, and hat. 1 % lidocaine was used for local anesthesia. Under direct ultrasound guidance and on single attempt, the vein was accessed with an introducer needle. The guide wire was advanced. Guidewire was confirmed to be intravenous by ultrasound and then the tract was dilated. Using Seldinger technique a 7 Albanian 20 cm antimicrobial coated triple-lumen catheter was advanced to a depth of 18 centimeters. The guide wire was removed. All ports had good return of dark venous blood and flushed easily with saline. The central line was secured with StatLock. A sterile dressing with antibiotic disc was applied. ESTIMATED BLOOD LOSS: Minimal COMPLICATIONS: No apparent complications. STAT chest x-ray is pending
--- NOTE | 2018-06-26 22:17 | XR ---
EXAM DATE: 06/26/2018 9:44 PM EDT AGE/SEX: 72 years / Female INDICATIONS: Left central line placement. CLINICAL DATA: This is the patient's subsequent encounter. Patient reports that signs and symptoms h ave been present for 2 weeks and indicates a pain score of 4/10. MEDICAL/SURGICAL HISTORY: . Diverticulitis. Gastroesophageal reflux disease. Anemia. Cervical c ancer, Lung nodule, Hypothyroid, Mixed connective tissue disorder, Kidney stones.. . . Appendect nancy. Hysterectomy. Breast biopsy lumpectomy, sigmoid polypectomy COMPARISON: [facility], CHEST 1V SINGLE AP, 06/25/2018. . FINDINGS: Mild perihilar and basilar parenchymal opacities have developed. Tiny pleural effusion suspected on t he left as well. No pneumothorax. Heart size stable, within normal limits. Right arm PICC with tip in the superior vena cava again noted. There is a new left internal jugular c entral venous catheter, also with tip in the superior vena cava. CONCLUSION: 1. Mild pulmonary edema has developed. 2. New left IJ central venous catheter with tip in the superior vena cava. No pneumothorax. 3. Unchanged right arm PICC with tip in the superior vena cava. Electronically signed by: Deniz Nix MD 06/26/2018 10:16 PM EDT
[2018-06-27] MEDS ORDERED: dilTIAZem Inj 125 MG in Sodium Chlor 0.9% Inj 100 ML IV.CONT PRN (04:35)
[2018-06-27] MEDS ORDERED: Amiodarone Inj 150 MG in Dextrose 5% in Water Inj 97 ML IV.SIG ONE ×2 (04:37)
[2018-06-27] MEDS: Potassium Chloride Inj 30 MEQ in Dextrose 5%/NaCl 0.9% Inj 1,000 ML IV.CONT SCH ×2 (05:33→08:11)
[2018-06-27] MEDS: Levothyroxine 50 MCG Tablet PO SCH (05:43)
[2018-06-27 06:16] LABS: Hematocrit 38.8 % (35.0-46.0); Hemoglobin 12.6 gm/dL (11.6-15.3); Mean Corpuscular HGB Conc 32.5 % (32.0-36.0); Mean Corpuscular Hemoglobin 25.7 pg (27.0-34.0); Mean Platelet Volume 8.3 fL (7.0-11.0); Platelet Count 21 th/mm3 (150-450); Red Cell Distribution Width 18.7 % (11.6-17.2); White Blood Count 4.8 th/mm3 (4.0-11.0)
[2018-06-27 06:30] LABS: Albumin 1.4 g/dL (3.4-5.0); Calcium 6.9 mg/dL (8.5-10.1); Carbon Dioxide 15.3 meq/L (21.0-32.0)
[2018-06-27 06:36] LABS: Total Protein 4.7 g/dL (6.4-8.2)
--- NOTE | 2018-06-27 06:52 | P.PNCS ---
Subjective Interval history: Pt seen again this AM. Sleepy,but seems more comfortable. Labs pending. Objective Result Diagrams: 06/27/18 05:45 06/27/18 05:45 Objective Remarks: Abd: less distended and less tender diffusely Assessment and Plan - Plan Use caution with antidiarrheals Continue IV hydration May need TPN in next day or 2 if Chemo toxicity Ileus does not resolve. Pseudomonas in blood. On antibiotics Sips of CLD or NPO suggested
[2018-06-27 06:58] LABS: Activated Partial Thrombo Time 35.7 sec (24.3-30.1); INR 1.5 Ratio; Prothrombin Time 14.7 sec (9.8-11.6)
--- NOTE | 2018-06-27 07:54 | MB ---
cc: Deniz Coelho MD,Deniz Ramirez,Eva Concepcion,Nabor Harris,Biju Ball MD DATE: 06/26/2018 CHIEF COMPLAINT: Ileus with diarrhea. HISTORY OF PRESENT ILLNESS: This patient is well known to me. I saw her back in 03/2018. She was referred to me for possible hemorrhoids by gastroenterology, and at that time she was found to have a good sized anal squamous cell carcinoma. For this reason, I referred her back Dr. Nishant Lucia who did her colonoscopy and biopsies showing squamous cell carcinoma of the anal canal. She was then referred to Dr. Gabi Ramirez and Dr. Nabor Concepcion for radiation therapy. Chemotherapy apparently was started in mid 05/2018. She has had a couple weeks of radiation therapy and 1 course of 5-FU and mitomycin C per protocol for a squamous cell carcinoma of the anal canal. Over the last 5 days, she and her family tell me that she has had more and more in the way of diarrhea and eventually presented to the hospital. She is mildly dehydrated with serious diarrhea and abdominal distention and ileus. Past medical history, family history, social history, review of systems otherwise negative. PHYSICAL EXAMINATION: GENERAL: Well-developed, thin female in distress with abdominal distention and diarrhea. SKIN: Warm and dry. HEENT: Extraocular muscles intact. NECK: Supple. ABDOMEN: Distended with tympany. It is tender on light palpation throughout the abdomen, consistent with distended bowel. There are no peritoneal signs. RECTAL: Exam was not done. EXTREMITIES: Range of motion within normal limits. NEUROLOGIC: Grossly normal. IMPRESSION: Ileus due to chemotherapy toxicity with a small bowel enteritis and distention. PLAN: I have nothing to add here other than I would be cautious on using too much in the way of Lomotil or Imodium for her diarrhea. I did note that her blood culture recently came back with Gram negatives and she is being started on antibiotics at this time. I have discussed this on the evening of 06/25/[address] Ramirez and he is following as well, and he is monitoring her leukopenia secondary to her chemotherapy. I will continue to follow along with you. MD KIEL Vázquez/erika , 06:47 AM , 06:53 AM
[2018-06-27 08:27] LABS: Burr Cells 2+; Dohle Bodies Present; Lymphocytes 1 % (9-44); Monocytes 11 % (0-8); Plasma Cells 1 % (0-0); Promyelocyte 1 % (0-0); Toxic Granulation 2+; Toxic Vacuolation Present
[2018-06-27 08:28] LABS: Ovalocytes 1+; Spherocytes Occ
[2018-06-27] MEDS ORDERED: Dextrose 50% in Water 50 ML Vial IV.PUSH PRN (09:51)
--- NOTE | 2018-06-27 10:19 | P.PNCC ---
Subjective Subjective Remarks/Hospital Course: 72-year-old female with past medical history of anorectal squamous cell carcinoma, mixed connective tissue disease (SLE, Reynaud's, Polymyositis), remote cervical cancer status post hysterectomy, hypothyroid . She originally developed anal pain and bleeding in January of 2018. She was referred to Dr. Coelho who performed biopsy of anal mass on 04/25/18 which demonstrated invasive squamous cell carcinoma. Outpatient PET reportedly showed no local or distant metastatic disease. She has been undergoing radiation therapy under the care of Dr Concepcion. Concurrent chemotherapy is planned for week 1 and 5 of radiation; and she completed first chemo cycle 06/13/18. She has reportedly been having loose watery stools for several days, difficult to determine exact time of onset. She has also had abdominal pain. When she presented for radiation treatment on 06/25, she was weak and hypotensive so she was sent to the ED. She was pancytopenic with ANC 768. CT abd/pelvis showed fluid filled small bowel c/ w partial SBO or ileus. She was admitted to hospitalist service. Blood cultures were obtained 09/25 which have now resulted + pseudomonas in / bottles. She was started on cefepime 2 gram IV and vancomycin per hematology. Tmax was 101.2 [employer]crete Paving [employer] consult has been requested. She has a RUE PICC placed 06/09 which does not have overt clinical signs of infection, but will be removed. 06/27 Patient is lethargic on Amio drip ( HR now controlled) Afebrile. Objective Vital Signs / I&O: Vital Signs 06/26/18 11:00 06/26/18 11:30 06/26/18 12:00 Temperature 97.8 F Pulse Rate 108 H 114 H 117 H Respiratory Rate 27 H 35 H 28 H Blood Pressure 93/54 L 118/74 101/61 Pulse Oximetry 95 95 06/26/18 12:05 06/26/18 12:30 06/26/18 13:00 Temperature Pulse Rate 110 H 110 H 133 H Respiratory Rate 22 22 35 H Blood Pressure 101/61 105/62 105/73 Pulse Oximetry 95 06/26/18 13:30 06/26/18 14:00 06/26/18 14:30 Temperature Pulse Rate 115 H 117 H 116 H Respiratory Rate 17 19 10 L Blood Pressure 95/59 L 89/56 L 84/51 L Pulse Oximetry 96 06/26/18 15:00 06/26/18 15:30 06/26/18 16:00 Temperature 98.7 F Pulse Rate 119 H 119 H 122 H Respiratory Rate 9 L 11 L 13 Blood Pressure 86/54 L 88/53 L 87/50 L Pulse Oximetry 97 06/26/18 16:30 06/26/18 17:00 06/26/18 17:30 Temperature Pulse Rate 122 H 123 H 122 H Respiratory Rate 9 L 12 13 Blood Pressure 85/53 L 85/54 L 87/54 L Pulse Oximetry 97 95 06/26/18 18:00 06/26/18 18:30 06/26/18 19:00 Temperature Pulse Rate 122 H 122 H 124 H Respiratory Rate 10 L 10 L 25 H Blood Pressure 88/55 L 87/55 L 81/53 L Pulse Oximetry 96 96 90 L 06/26/18 19:05 06/26/18 19:30 06/26/18 20:00 Temperature 98.9 F Pulse Rate 123 H 119 H 118 H Respiratory Rate 13 18 22 Blood Pressure 81/53 L 88/58 L Pulse Oximetry 97 90 L 97 06/26/18 20:03 06/26/18 20:30 06/26/18 20:37 Temperature Pulse Rate 114 H 113 H 114 H Respiratory Rate 16 18 19 Blood Pressure 95/57 L 92/59 L 89/59 L Pulse Oximetry 97 88 L 98 06/26/18 21:00 06/26/18 21:02 06/26/18 21:30 Temperature Pulse Rate 111 H 111 H 141 H Respiratory Rate 20 21 27 H Blood Pressure 94/56 L 91/63 L Pulse Oximetry 06/26/18 21:42 06/26/18 22:00 06/26/18 22:30 Temperature Pulse Rate 150 H 151 H 155 H Respiratory Rate 19 29 H 19 Blood Pressure 119/59 L 106/70 98/59 L Pulse Oximetry 96 06/26/18 23:00 06/26/18 23:30 06/26/18 23:35 Temperature Pulse Rate 124 H 117 H 119 H Respiratory Rate 28 H 20 32 H Blood Pressure 98/66 L 85/57 L 98/61 L Pulse Oximetry 06/27/18 00:00 06/27/18 00:30 06/27/18 01:00 Temperature 98.8 F Pulse Rate 114 H 110 H 105 H Respiratory Rate 30 H 30 H 26 H Blood Pressure 98/64 L 94/60 L 110/59 L Pulse Oximetry 99 06/27/18 01:30 06/27/18 02:00 06/27/18 02:30 Temperature Pulse Rate 104 H 103 H 100 H Respiratory Rate 29 H 32 H 20 Blood Pressure 99/67 L 100/60 109/76 Pulse Oximetry 76 L 91 L 06/27/18 03:00 06/27/18 03:26 06/27/18 03:30 Temperature Pulse Rate 107 H 158 H 157 H Respiratory Rate 14 30 H 31 H Blood Pressure 99/62 L 107/58 L 90/62 L Pulse Oximetry 06/27/18 04:00 06/27/18 04:30 06/27/18 05:00 Temperature 98.1 F Pulse Rate 159 H 161 H 160 H Respiratory Rate 29 H 21 21 Blood Pressure 97/71 L 106/59 L 78/56 L Pulse Oximetry 82 L 94 L 95 06/27/18 05:09 06/27/18 05:15 06/27/18 05:31 Temperature Pulse Rate 148 H 157 H 124 H Respiratory Rate 26 H 17 26 H Blood Pressure 80/59 L 81/59 L 100/60 Pulse Oximetry 95 96 95 06/27/18 05:45 06/27/18 06:00 06/27/18 06:15 Temperature Pulse Rate 130 H 134 H 134 H Respiratory Rate 25 H 23 32 H Blood Pressure 98/59 L 101/66 99/62 L Pulse Oximetry 95 94 L 06/27/18 06:30 06/27/18 06:45 06/27/18 07:00 Temperature Pulse Rate 137 H 134 H 136 H Respiratory Rate 31 H 22 27 H Blood Pressure 93/63 L 92/63 L Pulse Oximetry 06/27/18 07:01 06/27/18 07:15 06/27/18 07:30 Temperature Pulse Rate 137 H 101 H 94 H Respiratory Rate 34 H 22 24 Blood Pressure 115/70 99/55 L 92/54 L Pulse Oximetry 80 L 92 L 06/27/18 07:45 06/27/18 08:00 Temperature Pulse Rate 100 H 92 H Respiratory Rate 26 H 23 Blood Pressure 97/66 L 99/53 L Pulse Oximetry 87 L 94 L Intake & Output 06/26/18 06/27/18 06/27/18 18:59 06:59 18:59 Intake Total 1465 / 1465 4230 / 4230 Balance 1465 / 1465 4230 / 4230 Weight 52.5 kg Intake: IV 1365 / 1365 4130 / 4130 KCl Inj 30 MEQ In D5W/Normal 1015 / 1015 2029 / 2029 Saline Inj 1,000 ML @ 100 mls/ hr IV.CONT .Q10H9M PABLO Rx#: [id number] Maxipime Inj 2,000 MG In NS Inj 100 / 100 100 ML @ 200 mls/hr IV.SIG Q12H PABLO Rx#:[id number] Merrem Inj 1,000 MG In NS Inj 100 / 100 100 ML @ 200 mls/hr IV.SIG Q12H PABLO Rx#:[id number] NS Inj 1,000 ML @ Wide Open IV. 1999 SIG BOLUS ONE Rx#:[id number] Vancomycin Inj 1,000 MG In NS 250 / 250 Inj 250 ML @ 200 mls/hr IV.SIG ONCE ONE Rx#:[id number] Oral 100 / 100 100 / 100 Other: # Voids 3 # Incontinent Voids 6 Date of Last Bowel Movement 06/26/18 06/27/18 # Bowel Movements 2 # Incontinent Bowel Movements 5 Result Diagrams: 06/27/18 10:45 06/27/18 10:45 Other Results: Laboratory Results - last 12 hr 06/27/18 06/27/18 06/27/18 05:45 05:45 05:45 WBC 4.8 RBC 4.90 Hgb 12.6 Hct 38.8 MCV 79.0 L MCH 25.7 L MCHC 32.5 RDW 18.7 H Plt Count 21 L D MPV 8.3 Prelim Diff (Auto) Manual diff required WBC Differential Manual diff final Seg Neuts % (Manual) 53 Band Neuts % (Manual) 33 H Lymphocytes % (Manual) 1 L Monocytes % (Manual) 11 H Promyelocytes % (Man) 1 H Plasma Cell % (Manual) 1 H Abs Neuts (Manual) 4.2 Differential Comment . Toxic Granulation 2+ H Toxic Vacuolation Present H Dohle Bodies Present H Platelet Estimate Low L Platelet Morphology Enlarged H Spherocytes Occ H Ovalocytes 1+ H Darwin Cells 2+ H Keratocytes Occ H PT 14.7 H INR 1.5 APTT 35.7 H Fibrinogen 452 H Sodium 150 H Potassium 4.0 Chloride 125 H D Carbon Dioxide 15.3 L Anion Gap 10 BUN 55 H Creatinine 1.22 H Estimated GFR 44 L Random Glucose 173 H Calcium 6.9 L* Prot Corrected Calcium 8.2 L Total Bilirubin 1.1 H AST 41 H ALT 46 Alkaline Phosphatase 37 L Total Protein 4.7 L Albumin 1.4 L D Imaging: Abdomen/Pelvis CT 06/25/18 00:00 CONCLUSION: 1. No significant change compared to the previous examination dated 04/17/2018. 2. Multiple fluid-filled dilated loops of small bowel suggesting possible partial small bowel obstruction or ileus. Clinical correlation is recommended. 3. The rectum is unchanged in appearance compared to the previous examination although its evaluation is limited without oral contrast. The patient has a history of rectal carcinoma. Uncomplicated colonic diverticulosis is noted. 4. Stable cystic left adnexal lesion measuring 5.6 x 3.1 cm which may represent an ovarian cyst. 5. Distended gallbladder. 6. Multiple stable calcified nonobstructing bilateral renal calculi. 7. Multiple bilateral renal cysts. 8. Hiatal hernia. 9. Degenerative changes throughout the lumbar spine. Chest X-Ray 06/26/18 21:44 CONCLUSION: 1. Mild pulmonary edema has developed. 2. New left IJ central venous catheter with tip in the superior vena cava. No pneumothorax. 3. Unchanged right arm PICC with tip in the superior vena cava. Objective Remarks: GENERAL: Patient is 72 lying in bed in NAD,Critically ill SKIN: Warm and dry. HEAD: Normocephalic. EYES: No scleral icterus. No injection or drainage. NECK: Supple, trachea midline. No JVD or lymphadenopathy. CARDIOVASCULAR: Regular rate and rhythm without murmurs, gallops, or rubs. RESPIRATORY: Breath sounds equal bilaterally. No accessory muscle use. GASTROINTESTINAL: Abdomen soft, non-tender, nondistended. MUSCULOSKELETAL: No cyanosis, or edema. Neuro: Lethargic Assessment and Plan - Assessment and Plan Plan: NEURO: Lethargy secondary to sepsis Dilaudid prn pain Monitor neuro status and avoid sedatives RESP: Continue with oxygen keep sats >92% Place on bronchodilators CXR: Mild pulm edema CV: Hypotension secondary to volume depletion and sepsis. Atrial fibrillation with RVR Patient appears volume depleted given 2 L normal saline bolus overnight due to hypotension and blood pressure normalized with MAP 70-77. Levophed if needed to maintain MAP>65mmHg On Amio drip for Afib with RVR- now HR controlled. Continue with IVF GI: Diarrhea Abdominal pain Ileus Squamous cell carcinoma of the anus Moderate protein energy malnutrition NPO for bowel rest. CRS is following- Dr. Coelho FEN/RENAL: GREY Monitor intake and output. Monitor electrolytes. Replace electrolytes as indicated per ICU electrolyte replacement protocol. Change IVF D51/2NS @50ml/hr x 1 liter, TPN ordered. ID: Pseudomonas bacteremia 06/25 Severe sepsis with probable GI source Continue abx- On [id number] Q12 to cover Pseudomonas. On Vancomycin 500 mg p.o. every 6 hours and follow-up C. difficile PCR. Continue vancomycin IV. ID is following. Check BC x 2 sets today and UA with cx if indicated Remove PICC 06/26. HEME: Squamous cell carcinoma anorectal Pancytopenia On Neupogen per oncology. SCC anus - s/p chemo completed 06/13. Radiation therapy on hold per Dr. Concepcion. Decadron 4 mg IV q6 hours . Monitor CBC, coags. Plt transfuse per heme. ENDO: Acute hyperglycemia Monitor bedside glucose every 6 hours and initiate low-dose insulin sliding scale as indicated. On Synthroid 50 mcg daily check TSH level PROPH: SCD for DVT prophylaxis. On Protonix 40mg Q12 for GI prophylaxis ACCESS: Remove right upper extremity PICC 06/26. L IJ CVL placed 06/26 Palliative care eval to asses with goals of care Full code Patient is critically ill with pancytopenia and sepsis with multiorgan dysfunction. She is hypotensive and at high risk for further deterioration and . CCT 35 mins
[2018-06-27] MEDS: Pantoprazole Inj 40 MG Vial IV.PUSH SCH ×2 (10:23→20:57)
[2018-06-27] MEDS ORDERED: Dextrose 5%/NaCl 0.45% Inj 1,000 ML IV.CONT SCH (10:25)
[2018-06-27 11:29] LABS: Hematocrit 38.5 % (35.0-46.0); Hemoglobin 12.7 gm/dL (11.6-15.3); Lymph % (Auto) 0.8 % (9.0-44.0); Mean Corpuscular HGB Conc 32.9 % (32.0-36.0); Mean Corpuscular Hemoglobin 25.7 pg (27.0-34.0); Mean Corpuscular Volume 78.1 fL (80.0-100.0); Mean Platelet Volume 8.5 fL (7.0-11.0); Mono # (Auto) 0.2 th/mm3 (0.0-0.9); Mono % (Auto) 3.7 % (0.0-8.0); Neut # (Auto) 3.9 th/mm3 (1.8-7.7); Neut % (Auto) 95.5 % (16.0-70.0); Platelet Count 17 th/mm3 (150-450); Red Blood Count 4.94 mil/mm3 (4.00-5.30); Red Cell Distribution Width 18.5 % (11.6-17.2); White Blood Count 4.1 th/mm3 (4.0-11.0)
[2018-06-27 11:41] LABS: INR 1.5 Ratio; Prothrombin Time 15.1 sec (9.8-11.6)
[2018-06-27 11:51] LABS: Albumin 1.4 g/dL (3.4-5.0); Calcium 6.7 mg/dL (8.5-10.1); Carbon Dioxide 15.9 meq/L (21.0-32.0); Magnesium 1.6 mg/dL (1.5-2.5); Phosphorus 1.1 mg/dL (2.5-4.9); Thyroid Stimulating Hormone 0.984 uIU/mL (0.358-3.740); Total Protein 4.6 g/dL (6.4-8.2)
[2018-06-27 12:18] LABS: Lymphocytes 3 % (9-44); Metamyelocytes 2 % (0-1); Monocytes 6 % (0-8); Myelocytes 4 % (0-0); Tallied Nucleated RBC 3 (0-0)
[2018-06-27 12:19] LABS: Burr Cells 2+; Ovalocytes 1+
--- NOTE | 2018-06-27 12:51 | P.CONPAL ---
Consult Service: Palliative Care Requesting Physician: Kendra Orozco Reason for Consult: a. To assist with evaluation and management of symptoms including: pain, debility b. To assist medical decision maker(s) with: better understanding of current medical conditions; weighing benefits/burdens of medical treatment options; making medical treatment decisions. Primary Care Provider: Lei Palomo MD History of Present Illness History of Present Illness: Ms. Barraza is a 75-year-old female with past medical history of diverticulosis, GERD, Cueto's esophagus, hemorrhoids, hypothyroidism, iron deficiency anemia, osteoporosis, mixed connective tissue disorder, kidney stones, anal rectal cancer, squamous cell carcinoma. Presented to [facility] ED on 06/25/2018 with complaints of nausea, vomiting and diarrhea. She is currently undergoing treatment for anorectal cancer with chemo and radiation therapy. Her last chemotherapy session was approximately 2 weeks ago. She visited her radiation oncologist for a regular appointment today and was found to be weak and hypotensive. She was advised to go directly to the emergency room for evaluation. She was admitted for further workup and care. Initial emergency room evaluation revealed: * Temp 97.5, pulse 119, respiratory rate 20, BP 70/50, pulse ox 98% on room air * WBC 1.6, hemoglobin 10.2, hematocrit 31.7, platelets 54, neutrophils 71.3% * Na 134, K+ 2.4, Cl 90.9, BUN 57, creatinine 1.36, estimated GFR of 38 Ca 7.9 * Total bili 1.0, AST 68, ALT 38, alkaline phosphatase 27, total protein 6.2, albumin 2.1, lipase 25, lactic acid 1.5 * CXR PICC line in good position otherwise negative * Abdomen/pelvic CT 1. Multiple fluid-filled dilated loops of small bowel suggesting possible partial SBO versus ileus, 2. stable cystic left adnexal lesion possible ovarian cyst, 3. Distended gallbladder, 4. Multiple stable calcified renal calculi, 5. Multiple bilateral renal cyst, 6. Hiatal hernia Dr. Ramirez (oncology) was consulted as he is known to the patient. He felt her nausea, vomiting, and diarrhea which subsequently caused dehydration hypokalemia and acute renal failure. She was started on Neupogen for leukopenia mild neutropenia, and given Lomotil for diarrhea. Urinalysis and blood cultures at this point were still pending she was receiving blood transfusion for her anemia. 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 Dr. Coon (colon rectal surgery) was consulted due to patient's history of anorectal cancer and persistent diarrhea, though he did not have much to add at this time. Suggested judicious use of Lomotil or Imodium for diarrhea and would follow back as outpatient. Dr. Lawson (civil structural engineer) was consulted for continued management in the intensive care unit for hypotension. At this point blood cultures returned with positive Pseudomonas and she was started on cefepime and Vanco IV. Patient's T-max increased to 101.2 and was beginning to show signs of lethargy. She was given multiple liters of saline for rehydration. She had an episode of atrial fibrillation with RVR was started on amiodarone bolus and drip. Palliative care was consulted to assist with symptom management and to help clarify goals of care. Upon examination the patient is lethargic but arousable. Appears frail and pale. She complains of some shortness of breath, and generalized pain. The pain is dull and aching mostly in her rectal area. She also complains of dull aching pain to palpation to her right lower extremity. She also complains of nausea and extreme fatigue. She requests that we speak with her 2 daughters Maile and Harper who are at bedside. Further discussion concerning prognosis, goals of care, and trajectory to follow. Function/Cognitive Trajectory: Prior to this admission Ms. Barraza was very active. She cared for her who is currently residing in a assisted with dementia. She was independent with ambulation and all ADLs Review of Systems Constitutional: Reports anorexia, Reports fatigue, Reports lack of energy, Reports malaise, Reports weakness Respiratory: Reports shortness of breath Gastrointestinal: Reports abdominal pain, Reports nausea Musculoskeletal: Reports body aches PMFSH - History History Provided By: Patient, Family Member - Medical History Medical History: Medical History (Last Updated 06/27/18 @ 13:38 by DAMI Eldridge) Diverticulosis GERD (gastroesophageal reflux disease) Hx of cervical cancer Hypothyroidism Raynaud phenomenon FH: chemotherapy Mixed connective tissue disease Rectal cancer - Surgical History Surgical History: Surgical History (Last Updated 06/27/18 @ 13:40 by DAMI Eldridge) History of hysterectomy (Acute) History of biopsy Hx of appendectomy Hx of colonoscopy Hx of lumpectomy - Family History Family History: Family History (Last Reviewed 06/27/18 @ 15:42 by DAMI Eldridge) Brother Multiple sclerosis - Social History I have reviewed the patient's Social History: Yes - Tobacco History Second Hand Smoke Exposure: No Tobacco Use In Past 30 Days: No Smoking Status: Former smoker - Alcohol History How Often Do You Have a Drink Containing Alcohol: Never - Substance Use History Substance History: No History of Abuse - Travel History History of Recent Travel: No Recent Travel in the [place] Within the Last 8 Weeks: No Recent Travel Out of the Country Within the Last 8 Weeks: No - Immunization History Tetanus Immunization: Unsure Hx Influenza Vaccine This Season: No Medications and Allergies Allergies Allergy/AdvReac Type Severity Reaction Status Date / Time No Known Allergies Allergy Verified 06/25/18 12:06 Home Medications Medication Instructions Recorded Confirmed Type cimetidine [Tagamet HB] 200 mg PO TID 06/09/18 06/25/18 History levothyroxine [Synthroid] 50 mcg PO DAILY 06/09/18 06/25/18 History omeprazole magnesium [Prilosec] 40 mg PO DAILY 06/09/18 06/25/18 History zolpidem 12.5 mg PO 06/25/18 History Active Medications: Active Medications Albuterol (Duoneb Neb (Prn)) 1 ampul NEB Q2HR NEB PRN PRN Reason: DYSPNEA Albuterol (Duoneb Neb (Fern)) 1 ampul NEB Q4HR NEB FERN Dexamethasone Sodium Phosphate (Decadron Inj) 4 mg IV.PUSH Q6HR FERN Last Admin: 06/27/18 05:39 Dose: 4 mg Dextrose (D50w Vial) 50 ml IV.PUSH UNSCH PRN PRN Reason: PER HYPOGLYCEMIA PROTOCOL Diphenoxylate HCl/Atropine (Lomotil) 2 tab PO Q6H PRN PRN Reason: DIARRHEA Filgrastim (Neupogen Inj) 480 mcg SQ DAILY@1400 FERN Last Admin: 06/26/18 14:08 Dose: 480 mcg Glucagon (Glucagon Inj) 1 mg OTHER PRN PRN PRN Reason: for Hypoglycemia Protocol Hydromorphone HCl (Dilaudid Pf Inj) 0.5 mg IV.PUSH Q3H PRN PRN Reason: PAIN 3-10 Last Admin: 06/26/18 21:08 Dose: 0.5 mg Vancomycin HCl 750 mg/ Sodium (Chloride) 257.5 mls @ 250 mls/hr IV.SIG Q24H FERN Norepinephrine Bitartrate (Levophed-Dextrose 4 Mg/250 Ml Drip) 4 mg in 250 mls @ 7.5 mls/hr IV.SIG TITRATE PRN; Protocol PRN Reason: Per Protocol Meropenem 1,000 mg/ Sodium (Chloride) 100 mls @ 200 mls/hr IV.SIG Q12H FERN Last Admin: 06/27/18 10:24 Dose: 100 mls/hr Amiodarone HCl 450 mg/ (Dextrose) 250 mls @ 33.33 mls/hr IV.CONT TITRATE PRN; Protocol PRN Reason: Per Protocol Last Admin: 06/27/18 05:31 Dose: 1 mg/min, 33.33 mls/hr Amino Acids/Electrolytes (Clinimix E 5%/D20w Inj) 2,000 mls @ 42 mls/hr IV.SIG Q24H FERN Fat Emulsion Intravenous (Intralipid 20% Inj) 250 mls @ 42 mls/hr IV.SIG Q24H FERN Dextrose/Sodium Chloride (D5w/1/2 Ns Inj) 1,000 mls @ 50 mls/hr IV.CONT .Q20H FERN Stop: 06/28/18 06:24 Insulin Aspart (Novolog Insulin Correctional Sugar Inj) 0 unit SQ Q6HR [facility]; Protocol Levothyroxine Sodium (Synthroid) 50 mcg PO DAILY@0600 [facility] Last Admin: 06/27/18 05:43 Dose: 50 mcg Miscellaneous (Pill Splitter) 1 each OTHER UNSCH PRN PRN Reason: PILL SPIT Miscellaneous Information ([facility] Ordered Lab Info) 0 each OTHER ONCE ONE Stop: 06/29/18 15:46 Ondansetron HCl (Zofran Inj) 4 mg IV.PUSH Q6H PRN PRN Reason: NAUSEA OR VOMITING Last Admin: 06/26/18 04:43 Dose: 4 mg Pantoprazole Sodium (Protonix Inj) 40 mg IV.PUSH Q12HR FERN Last Admin: 06/27/18 10:23 Dose: 40 mg Pharmacy Profile Note (Vancomycin Consult Pharmacy) 1 each OTHER UNSCH PRN PRN Reason: Pharmacy to dose Sodium Chloride (Ns Flush) 2 ml IV.FLUSH BID FERN Sodium Chloride (Ns Flush) 2 ml IV.FLUSH PRN PRN PRN Reason: FLUSH AFTER USING IV ACCESS Terbutaline Sulfate (Brethine Inj) 1 mg SQ UNSCH PRN PRN Reason: For Extravasation Vancomycin HCl (Vancomycin Po) 500 mg PO Q6H FERN Last Admin: 06/27/18 05:43 Dose: 500 mg Advance Directives Living Will: Yes Healthcare Surrogate: Yes (Family to bring in) Documented care wishes: Patient's daughters state that she has a documented living will and will provide us with this paperwork. Today's verbally stated goals: The patient stated that she wished for us to discuss her ongoing care with her 2 daughters. Family/friends goals: Her daughters are hopeful that the patient can overcome her current infection and return to her scheduled chemotherapy and radiation. They are hopeful that she will be able to return to her baseline functional status. Ethical and Legal Issues: There are currently no known legal or ethical issues impacting this case at this time. The daughter states the patient has a documented living will and they will bring in this paperwork for us to have put in her chart Physical Exam Vital Signs: Vital Signs - 24 hr 06/26/18 13:00 06/26/18 13:30 06/26/18 14:00 Temperature Pulse Rate 133 H 115 H 117 H Respiratory Rate 35 H 17 19 Blood Pressure 105/73 95/59 L 89/56 L Pulse Oximetry 95 96 06/26/18 14:30 06/26/18 15:00 06/26/18 15:30 Temperature Pulse Rate 116 H 119 H 119 H Respiratory Rate 10 L 9 L 11 L Blood Pressure 84/51 L 86/54 L 88/53 L Pulse Oximetry 06/26/18 16:00 06/26/18 16:30 06/26/18 17:00 Temperature 98.7 F Pulse Rate 122 H 122 H 123 H Respiratory Rate 13 9 L 12 Blood Pressure 87/50 L 85/53 L 85/54 L Pulse Oximetry 97 97 06/26/18 17:30 06/26/18 18:00 06/26/18 18:30 Temperature Pulse Rate 122 H 122 H 122 H Respiratory Rate 13 10 L 10 L Blood Pressure 87/54 L 88/55 L 87/55 L Pulse Oximetry 95 96 96 06/26/18 19:00 06/26/18 19:05 06/26/18 19:30 Temperature Pulse Rate 124 H 123 H 119 H Respiratory Rate 25 H 13 18 Blood Pressure 81/53 L 81/53 L 88/58 L Pulse Oximetry 90 L 97 90 L 06/26/18 20:00 06/26/18 20:03 06/26/18 20:30 Temperature 98.9 F Pulse Rate 118 H 114 H 113 H Respiratory Rate 22 16 18 Blood Pressure 95/57 L 92/59 L Pulse Oximetry 97 97 88 L 06/26/18 20:37 06/26/18 21:00 06/26/18 21:02 Temperature Pulse Rate 114 H 111 H 111 H Respiratory Rate 19 20 21 Blood Pressure 89/59 L 94/56 L Pulse Oximetry 98 06/26/18 21:30 06/26/18 21:42 06/26/18 22:00 Temperature Pulse Rate 141 H 150 H 151 H Respiratory Rate 27 H 19 29 H Blood Pressure 91/63 L 119/59 L 106/70 Pulse Oximetry 96 06/26/18 22:30 06/26/18 23:00 06/26/18 23:30 Temperature Pulse Rate 155 H 124 H 117 H Respiratory Rate 19 28 H 20 Blood Pressure 98/59 L 98/66 L 85/57 L Pulse Oximetry 06/26/18 23:35 06/27/18 00:00 06/27/18 00:30 Temperature 98.8 F Pulse Rate 119 H 114 H 110 H Respiratory Rate 32 H 30 H 30 H Blood Pressure 98/61 L 98/64 L 94/60 L Pulse Oximetry 99 06/27/18 01:00 06/27/18 01:30 06/27/18 02:00 Temperature Pulse Rate 105 H 104 H 103 H Respiratory Rate 26 H 29 H 32 H Blood Pressure 110/59 L 99/67 L 100/60 Pulse Oximetry 76 L 91 L 06/27/18 02:30 06/27/18 03:00 06/27/18 03:26 Temperature Pulse Rate 100 H 107 H 158 H Respiratory Rate 20 14 30 H Blood Pressure 109/76 99/62 L 107/58 L Pulse Oximetry 06/27/18 03:30 06/27/18 04:00 06/27/18 04:30 Temperature 98.1 F Pulse Rate 157 H 159 H 161 H Respiratory Rate 31 H 29 H 21 Blood Pressure 90/62 L 97/71 L 106/59 L Pulse Oximetry 82 L 94 L 06/27/18 05:00 06/27/18 05:09 06/27/18 05:15 Temperature Pulse Rate 160 H 148 H 157 H Respiratory Rate 21 26 H 17 Blood Pressure 78/56 L 80/59 L 81/59 L Pulse Oximetry 95 95 96 06/27/18 05:31 06/27/18 05:45 06/27/18 06:00 Temperature Pulse Rate 124 H 130 H 134 H Respiratory Rate 26 H 25 H 23 Blood Pressure 100/60 98/59 L 101/66 Pulse Oximetry 95 95 94 L 06/27/18 06:15 06/27/18 06:30 06/27/18 06:45 Temperature Pulse Rate 134 H 137 H 134 H Respiratory Rate 32 H 31 H 22 Blood Pressure 99/62 L 93/63 L 92/63 L Pulse Oximetry 06/27/18 07:00 06/27/18 07:01 06/27/18 07:15 Temperature Pulse Rate 136 H 137 H 101 H Respiratory Rate 27 H 34 H 22 Blood Pressure 115/70 99/55 L Pulse Oximetry 80 L 06/27/18 07:30 06/27/18 07:45 06/27/18 08:00 Temperature Pulse Rate 94 H 100 H 92 H Respiratory Rate 24 26 H 23 Blood Pressure 92/54 L 97/66 L 99/53 L Pulse Oximetry 92 L 87 L 94 L I&O: Intake & Output 06/25/18 06/26/18 06/27/18 06/28/18 06:59 06:59 06:59 06:59 Intake Total 332 / 3329 5695 / 5695 Balance 3329 / 3329 5695 / 5695 Weight 54.5 kg 52.5 kg Physical Exam: CONSTITUTIONAL/GENERAL: This is an adequately nourished patient, in no apparent distress. TUBES/LINES/DRAINS: IJ SKIN: No jaundice, rashes, or lesions. Ecchymoses on upper extremities. No wounds seen anteriorly. Feels warm. Not diaphoretic. HEAD: Atraumatic. Normocephalic. EYES: Pupils equal and round and reactive. Extraocular motions intact. No scleral icterus. No injection or drainage. Fundi not examined. ENT: Hearing grossly normal. Nose without bleeding or purulent drainage. Throat without visible erythema, exudates, masses, or lesions. Oral mucosa dry and pale NECK: Trachea midline. Supple, nontender. No palpable thyroid enlargement or nodularity. CARDIOVASCULAR: Regular rate and rhythm without murmurs, gallops, or rubs. No JVD. Peripheral pulses symmetric. RESPIRATORY/CHEST: Symmetric, slightly labored respirations. Clear to auscultation. Breath sounds equal bilaterally. GASTROINTESTINAL: Abdomen soft, mild tenderness to palpation, nondistended. No hepato-splenomegaly, or palpable masses. No guarding. Bowel sounds absent. GENITOURINARY: Without palpable bladder distension. Brenner catheter in place. MUSCULOSKELETAL: Finger tips and great toe on each foot are discolored and cool , patient and family state this is normal for her. No calf tenderness but does complain of dull ache with light palpation to right gonzalez. LYMPHATICS: No palpable cervical or supraclavicular adenopathy. NEUROLOGICAL:Lethargic but arousable. Periodically moans Motor and sensory grossly within normal limits. Follows commands. Moves all extremities. PSYCHIATRIC: No obvious anxiety/depression. no apparent hallucinations or other psychotic thought process. Diagnostic Tests Laboratory: Laboratory Results - last 72 hr 06/25/18 06/25/18 06/25/18 12:10 12:10 12:21 WBC 1.6 L RBC 4.14 Hgb 10.2 L Hct 31.7 L MCV 76.4 L MCH 24.6 L MCHC 32.2 RDW 17.7 H Plt Count 54 L D MPV 9.0 Prelim Diff (Auto) Slide review pending Neut % (Auto) 71.3 H Lymph % (Auto) 1.3 L [place] % (Auto) 26.7 H Eos % (Auto) 0.1 Baso % (Auto) 0.6 Neut # (Auto) 1.1 L Lymph # (Auto) 0.0 L [place] # (Auto) 0.4 Eos # (Auto) 0.0 Baso # (Auto) 0.0 WBC Differential Manual diff final Seg Neuts % (Manual) 30 Band Neuts % (Manual) 18 H Lymphocytes % (Manual) 3 L Monocytes % (Manual) 44 H Metamyelocytes % (Man) 4 H Myelocytes % (Man) 1 H Promyelocytes % (Man) Plasma Cell % (Manual) Abs Neuts (Manual) 0.8 L Nucleated RBCs/100 WBC Differential Comment . Toxic Granulation Toxic Vacuolation Dohle Bodies Platelet Estimate Low L Platelet Morphology Normal RBC Morphology Spherocytes Ovalocytes 1+ H [place] Cells 1+ H Acanthocytes (Spur) Occ H Keratocytes PT INR APTT Fibrinogen Sodium 134 L Potassium 2.4 L* Chloride 99 Carbon Dioxide 19.9 L Anion Gap 15 BUN 57 H Creatinine 1.36 H Estimated GFR 38 L Random Glucose 95 Lactic Acid Calcium 7.9 L Prot Corrected Calcium Phosphorus Magnesium Total Bilirubin 1.0 AST 60 H ALT 38 Alkaline Phosphatase 27 L Total Creatine Kinase Total Protein 6.2 L Albumin 2.1 L Triglycerides Lipase 25 L TSH Nasal Screen MRSA (PCR) MTS Gel Crossmatch See Detail 06/25/18 06/25/18 06/26/18 12:25 16:30 03:04 WBC 1.5 L RBC 4.82 Hgb 12.6 D Hct 36.8 MCV 76.4 L MCH 26.2 L MCHC 34.3 RDW 17.5 H Plt Count 41 L MPV 9.0 Prelim Diff (Auto) Manual diff required Neut % (Auto) Lymph % (Auto) [place] % (Auto) Eos % (Auto) Baso % (Auto) Neut # (Auto) Lymph # (Auto) [place] # (Auto) Eos # (Auto) Baso # (Auto) WBC Differential Manual diff final Seg Neuts % (Manual) 18 Band Neuts % (Manual) 62 H Lymphocytes % (Manual) 2 L Monocytes % (Manual) 16 H Metamyelocytes % (Man) 1 Myelocytes % (Man) 1 H Promyelocytes % (Man) Plasma Cell % (Manual) Abs Neuts (Manual) 1.2 L Nucleated RBCs/100 WBC Differential Comment . Toxic Granulation 1+ H Toxic Vacuolation Dohle Bodies Present H Platelet Estimate Low L Platelet Morphology Enlarged H RBC Morphology Normal Spherocytes Ovalocytes Darwin Cells Acanthocytes (Spur) Keratocytes PT INR APTT Fibrinogen Sodium Potassium Chloride Carbon Dioxide Anion Gap BUN Creatinine Estimated GFR Random Glucose Lactic Acid 1.5 Calcium Prot Corrected Calcium Phosphorus Magnesium Total Bilirubin AST ALT Alkaline Phosphatase Total Creatine Kinase Total Protein Albumin Triglycerides Lipase TSH Nasal Screen MRSA (PCR) Not detected MTS Gel Crossmatch 10/04/18 10/05/18 10/05/18 03:04 05:45 05:45 WBC 4.8 RBC 4.90 Hgb 12.6 Hct 38.8 MCV 79.0 L MCH 25.7 L MCHC 32.5 RDW 18.7 H Plt Count 21 L D MPV 8.3 Prelim Diff (Auto) Manual diff required Neut % (Auto) Lymph % (Auto) [place] % (Auto) Eos % (Auto) Baso % (Auto) Neut # (Auto) Lymph # (Auto) [place] # (Auto) Eos # (Auto) Baso # (Auto) WBC Differential Manual diff final Seg Neuts % (Manual) 53 Band Neuts % (Manual) 33 H Lymphocytes % (Manual) 1 L Monocytes % (Manual) 11 H Metamyelocytes % (Man) Myelocytes % (Man) Promyelocytes % (Man) 1 H Plasma Cell % (Manual) 1 H Abs Neuts (Manual) 4.2 Nucleated RBCs/100 WBC Differential Comment . Toxic Granulation 2+ H Toxic Vacuolation Present H Dohle Bodies Present H Platelet Estimate Low L Platelet Morphology Enlarged H RBC Morphology Spherocytes Occ H Ovalocytes 1+ H Darwin Cells 2+ H Acanthocytes (Spur) Keratocytes Occ H PT INR APTT Fibrinogen Sodium 141 150 H Potassium 3.5 D 4.0 Chloride 109 H D 125 H D Carbon Dioxide 19.9 L 15.3 L Anion Gap 12 10 BUN 56 H 55 H Creatinine 1.36 H 1.22 H Estimated GFR 38 L 44 L Random Glucose 195 H D 173 H Lactic Acid Calcium 6.9 L* D 6.9 L* Prot Corrected Calcium 7.9 L 8.2 L Phosphorus Magnesium Total Bilirubin 1.1 H AST 41 H ALT 46 Alkaline Phosphatase 37 L Total Creatine Kinase Total Protein 5.1 L D 4.7 L Albumin 1.4 L D Triglycerides Lipase TSH Nasal Screen MRSA (PCR) MTS Gel Crossmatch 06/27/18 06/27/18 06/27/18 05:45 10:45 10:45 WBC 4.1 RBC 4.94 Hgb 12.7 Hct 38.5 MCV 78.1 L MCH 25.7 L MCHC 32.9 RDW 18.5 H Plt Count 17 L* MPV 8.5 Prelim Diff (Auto) Slide review pending Neut % (Auto) 95.5 H Lymph % (Auto) 0.8 L [place] % (Auto) 3.7 Eos % (Auto) 0.0 Baso % (Auto) 0.0 Neut # (Auto) 3.9 Lymph # (Auto) 0.0 L [place] # (Auto) 0.2 Eos # (Auto) 0.0 Baso # (Auto) 0.0 WBC Differential Manual diff final Seg Neuts % (Manual) 51 Band Neuts % (Manual) 34 H Lymphocytes % (Manual) 3 L Monocytes % (Manual) 6 Metamyelocytes % (Man) 2 H Myelocytes % (Man) 4 H Promyelocytes % (Man) Plasma Cell % (Manual) Abs Neuts (Manual) 3.7 Nucleated RBCs/100 WBC 3 H Differential Comment . Toxic Granulation Toxic Vacuolation Dohle Bodies Platelet Estimate Low L Platelet Morphology Enlarged H RBC Morphology Spherocytes Ovalocytes 1+ H [place] Cells 2+ H Acanthocytes (Spur) Keratocytes PT 14.7 H INR 1.5 APTT 35.7 H Fibrinogen 452 H Sodium 154 H Potassium 4.0 Chloride 126 H Carbon Dioxide 15.9 L Anion Gap 12 BUN 55 H Creatinine 1.13 H Estimated GFR 48 L Random Glucose 148 H Lactic Acid Calcium 6.7 L* Prot Corrected Calcium 8.0 L Phosphorus 1.1 L Magnesium 1.6 Total Bilirubin 1.0 AST 34 ALT 44 Alkaline Phosphatase 38 L Total Creatine Kinase 137 Total Protein 4.6 L Albumin 1.4 L Triglycerides 132 Lipase TSH 0.984 Nasal Screen MRSA (PCR) MTS Gel Crossmatch 06/27/18 06/27/18 06/27/18 10:45 10:45 10:45 WBC RBC Hgb Hct MCV MCH MCHC RDW Plt Count MPV Prelim Diff (Auto) Neut % (Auto) Lymph % (Auto) [place] % (Auto) Eos % (Auto) Baso % (Auto) Neut # (Auto) Lymph # (Auto) [place] # (Auto) Eos # (Auto) Baso # (Auto) WBC Differential Seg Neuts % (Manual) Band Neuts % (Manual) Lymphocytes % (Manual) Monocytes % (Manual) Metamyelocytes % (Man) Myelocytes % (Man) Promyelocytes % (Man) Plasma Cell % (Manual) Abs Neuts (Manual) Nucleated RBCs/100 WBC Differential Comment Toxic Granulation Toxic Vacuolation Dohle Bodies Platelet Estimate Platelet Morphology RBC Morphology Spherocytes Ovalocytes Darwin Cells Acanthocytes (Spur) Keratocytes PT 15.1 H INR 1.5 APTT Fibrinogen Sodium Potassium Chloride Carbon Dioxide Anion Gap BUN Creatinine Estimated GFR Random Glucose Lactic Acid Calcium Prot Corrected Calcium Phosphorus Magnesium Total Bilirubin AST ALT Alkaline Phosphatase Total Creatine Kinase Cancelled Total Protein Albumin Triglycerides Lipase TSH Cancelled Nasal Screen MRSA (PCR) MTS Gel Crossmatch Result Diagrams: 06/27/18 10:45 06/27/18 10:45 Microbiology: Microbiology 06/25/18 12:25 Aerobic Blood Culture - Preliminary Blood - Peripheral Pseudomonas aeruginosa Anaerobic Blood Culture - Final QNS - See aerobic report. 06/25/18 12:10 Aerobic Blood Culture - Preliminary Blood - Peripheral Anaerobic Blood Culture - Final QNS - See aerobic report. Imaging: Impressions Abdomen/Pelvis CT 06/25/18 00:00 CONCLUSION: 1. No significant change compared to the previous examination dated 04/17/2018. 2. Multiple fluid-filled dilated loops of small bowel suggesting possible partial small bowel obstruction or ileus. Clinical correlation is recommended. 3. The rectum is unchanged in appearance compared to the previous examination although its evaluation is limited without oral contrast. The patient has a history of rectal carcinoma. Uncomplicated colonic diverticulosis is noted. 4. Stable cystic left adnexal lesion measuring 5.6 x 3.1 cm which may represent an ovarian cyst. 5. Distended gallbladder. 6. Multiple stable calcified nonobstructing bilateral renal calculi. 7. Multiple bilateral renal cysts. 8. Hiatal hernia. 9. Degenerative changes throughout the lumbar spine. Chest X-Ray 06/26/18 21:44 CONCLUSION: 1. Mild pulmonary edema has developed. 2. New left IJ central venous catheter with tip in the superior vena cava. No pneumothorax. 3. Unchanged right arm PICC with tip in the superior vena cava. Procedures: 06/26/18 - LIJ placement Patient/Family Conference Present at Family Conference: Maile Moss, daughter Harper Matt, daughter Denny ShaikhMARGY Family Conference Location: Bedside Issues Discussed: * Palliative care role, purpose, approach * Additional medical, psychosocial, and spiritual history * Patients general health, functional status, and cognitive changes in the months leading up to the current hospitalization * Patient/family understanding of the current medical problems * Patient/family understanding of prognosis * Patients goals of care as best understood from advance directives and/or conversations and/or values * Current medical treatment options and benefits/burdens of those options; discussed the benefits and burden of CPR and full life support measures * Questions answered to the best of my ability * Palliative care contact information provided In summary Ms. Barraza appears to have some insight into her current medical condition. She defers discussion of her care to her 2 daughters who are present. Her daughters appear to have good insight to the current prognosis, diagnosis, and most likely disease course trajectory. Their ultimate goal is to have their mother overcome her current infection and debilitated status and be able to return back to radiation and chemotherapy. Case also discussed with tab cutter and Plan - Disease Oriented Problem List (1) Rectal cancer - Symptom Scale (1) Pain 0-10 Scale: 7 (2) Nausea 0-10 Scale: 4 (3) Debility 0-10 Scale: 10 Pertinent Non-Medical Issues: Psychosocial: Ms. Barraza is currently though her is living in a assisted with dementia. She is originally from [place] but has been living in [place] for greater than 5 years. She has 2 biological daughters and multiple stepchildren with her . She is described as a very energetic and caring woman. Spiritual:Sikh Legal: The patient is currently able to participate to some degree in her own medical decisions. Should she become completely incapacitated and in, the absence of documented living will, decision making would fall to the patient's per [place] statutes. If he is truly incapacitated decision making would then fall to her 2 daughters Ethical issues impacting care: There are no known ethical issues impacting care at this time. Important Contacts: Maile Payne, daughter/HCP [phone] Harper Matt, daughter/HCP [phone] Prognosis: The patient currently has a poor prognosis. Though her cancer may be treatable she is currently too debilitated to undergo any type of aggressive chemotherapy or radiation therapy. She is at risk for further decline and decompensation due to sepsis, protein calorie malnutrition, atrial fibrillation, etc. She is at risk for further respiratory and cardiac decline, further debility, and . Code Status: Full Code Plan: * LEGAL DECISION MAKER: The family will provide documented living well. Should they not be able to locate the paperwork, per [place] statutes decision making would fall to the patient's . Since he is currently incapacitated with dementia in a assisted, then decision making falls to her 2 daughters Maileadriana Yanceyne and Harper Shaka * GOALS: Ms. Barraza appears to have some insight into her current medical condition. She defers discussion of her care to her 2 daughters who are present. Her daughters appear to have good insight to the current prognosis, diagnosis, and most likely disease course trajectory. Their ultimate goal is to have their mother overcome her current infection and debilitated status and be able to return back to radiation and chemotherapy. Goals remain aggressive at this time. * CODE STATUS: Currently remains FULL CODE, until family can produce document living will. The family eludes that she may have indicated DNR in her paperwork but they are not sure * SYMPTOMS: Debility - the family and patient state she has had a rapid decline physical ability during this hospital admission. This is multifactorial given her protein calorie malnourishment and sepsis. Has recently been started on TPN. When cleared for diet will consider dietary consult and calorie count as well as physical therapy. Nauseawould l consider adding Reglan once kidney function improves to help with nausea in light of ileus. Painpreviously used Percocet without good relief has been switched to Dilaudid since being in the ICU. In light of hypotension due to sepsis has not received. Is currently using barrier cream and Silvadene for topical pain relief after bowel movements. Once blood pressure stabilized she can hopefully start on appropriate pain regimen. * Palliative care will continue to follow during hospital course as condition evolves, to assist patient/decision maker with understanding of medical conditions, weighing benefits/burdens of treatment options, for clarification of goals of treatment. Additionally will assist with any symptoms of palliative concern. Appreciation Thank you for the opportunity to participate in the care of Savana Barraza. Attestation Collaborating MD Comments: Dual visit, concur with above documentation/plan. Attestation: To help prompt me to consider important information that might be impacting today's encounter and assessment, information from prior notes written by myself or my colleagues may have been "brought forward" into today's note. My signature on this note, however, is an attestation that I personally performed the exam, history, and/or decision-making noted today, and, unless otherwise indicated, the interactions with patient, family, and staff as well as the review of records all occurred today. I also attest that the listed assessment and stated plan reflect my best clinical judgment today based on the combination of historical information, prior notes, and today's exam/ interactions. When time spent is documented, it refers only to time spent today by the signer, or if indicated, combined time spent today by collaborating physician/nurse practitioner.
[2018-06-27] MEDS ORDERED: Dextrose 5% in Water Inj 1,000 ML IV.CONT SCH (13:30)
--- NOTE | 2018-06-27 13:37 | P.PNONC ---
Subjective Interval history: Patient is lethargic and in distress. Complaining of abdominal discomfort and distention. Patient still has significant diarrhea. Objective Vital Signs/Intake & Output: Vital Signs 06/26/18 14:00 06/26/18 14:30 06/26/18 15:00 Temperature Pulse Rate 117 H 116 H 119 H Respiratory Rate 19 10 L 9 L Blood Pressure 89/56 L 84/51 L 86/54 L Pulse Oximetry 96 06/26/18 15:30 06/26/18 16:00 06/26/18 16:30 Temperature 98.7 F Pulse Rate 119 H 122 H 122 H Respiratory Rate 11 L 13 9 L Blood Pressure 88/53 L 87/50 L 85/53 L Pulse Oximetry 97 06/26/18 17:00 06/26/18 17:30 06/26/18 18:00 Temperature Pulse Rate 123 H 122 H 122 H Respiratory Rate 12 13 10 L Blood Pressure 85/54 L 87/54 L 88/55 L Pulse Oximetry 97 95 96 06/26/18 18:30 06/26/18 19:00 06/26/18 19:05 Temperature Pulse Rate 122 H 124 H 123 H Respiratory Rate 10 L 25 H 13 Blood Pressure 87/55 L 81/53 L 81/53 L Pulse Oximetry 96 90 L 97 06/26/18 19:30 06/26/18 20:00 06/26/18 20:03 Temperature 98.9 F Pulse Rate 119 H 118 H 114 H Respiratory Rate 18 22 16 Blood Pressure 88/58 L 95/57 L Pulse Oximetry 90 L 97 97 06/26/18 20:30 06/26/18 20:37 06/26/18 21:00 Temperature Pulse Rate 113 H 114 H 111 H Respiratory Rate 18 19 20 Blood Pressure 92/59 L 89/59 L Pulse Oximetry 88 L 98 06/26/18 21:02 06/26/18 21:30 06/26/18 21:42 Temperature Pulse Rate 111 H 141 H 150 H Respiratory Rate 21 27 H 19 Blood Pressure 94/56 L 91/63 L 119/59 L Pulse Oximetry 06/26/18 22:00 06/26/18 22:30 06/26/18 23:00 Temperature Pulse Rate 151 H 155 H 124 H Respiratory Rate 29 H 19 28 H Blood Pressure 106/70 98/59 L 98/66 L Pulse Oximetry 96 06/26/18 23:30 06/26/18 23:35 06/27/18 00:00 Temperature 98.8 F Pulse Rate 117 H 119 H 114 H Respiratory Rate 20 32 H 30 H Blood Pressure 85/57 L 98/61 L 98/64 L Pulse Oximetry 99 06/27/18 00:30 06/27/18 01:00 06/27/18 01:30 Temperature Pulse Rate 110 H 105 H 104 H Respiratory Rate 30 H 26 H 29 H Blood Pressure 94/60 L 110/59 L 99/67 L Pulse Oximetry 76 L 06/27/18 02:00 06/27/18 02:30 06/27/18 03:00 Temperature Pulse Rate 103 H 100 H 107 H Respiratory Rate 32 H 20 14 Blood Pressure 100/60 109/76 99/62 L Pulse Oximetry 91 L 06/27/18 03:26 06/27/18 03:30 06/27/18 04:00 Temperature 98.1 F Pulse Rate 158 H 157 H 159 H Respiratory Rate 30 H 31 H 29 H Blood Pressure 107/58 L 90/62 L 97/71 L Pulse Oximetry 82 L 06/27/18 04:30 06/27/18 05:00 06/27/18 05:09 Temperature Pulse Rate 161 H 160 H 148 H Respiratory Rate 21 21 26 H Blood Pressure 106/59 L 78/56 L 80/59 L Pulse Oximetry 94 L 95 95 06/27/18 05:15 06/27/18 05:31 06/27/18 05:45 Temperature Pulse Rate 157 H 124 H 130 H Respiratory Rate 17 26 H 25 H Blood Pressure 81/59 L 100/60 98/59 L Pulse Oximetry 96 95 95 06/27/18 06:00 06/27/18 06:15 06/27/18 06:30 Temperature Pulse Rate 134 H 134 H 137 H Respiratory Rate 23 32 H 31 H Blood Pressure 101/66 99/62 L 93/63 L Pulse Oximetry 94 L 06/27/18 06:45 06/27/18 07:00 06/27/18 07:01 Temperature Pulse Rate 134 H 136 H 137 H Respiratory Rate 22 27 H 34 H Blood Pressure 92/63 L 115/70 Pulse Oximetry 06/27/18 07:15 06/27/18 07:30 06/27/18 07:45 Temperature Pulse Rate 101 H 94 H 100 H Respiratory Rate 22 24 26 H Blood Pressure 99/55 L 92/54 L 97/66 L Pulse Oximetry 80 L 92 L 87 L 06/27/18 08:00 06/27/18 13:22 Temperature Pulse Rate 92 H Respiratory Rate 23 Blood Pressure 99/53 L Pulse Oximetry 94 L 93 L Intake & Output 06/26/18 06/27/18 06/27/18 18:59 06:59 18:59 Intake Total 1465 / 1465 4230 / 4230 Balance 1465 / 1465 4230 / 4230 Weight 52.5 kg Intake: IV 1365 / 1365 4130 / 4130 KCl Inj 30 MEQ In D5W/Normal 1015 / 1015 2029 / 2029 Saline Inj 1,000 ML @ 100 mls/ hr IV.CONT .Q10H9M [facility] Rx#: [id number] Maxipime Inj 2,000 MG In NS Inj 100 / 100 100 ML @ 200 mls/hr IV.SIG Q12H [facility]LO Rx#:[id number] Merrem Inj 1,000 MG In NS Inj 100 / 100 100 ML @ 200 mls/hr IV.SIG Q12H [facility] Rx#:[id number] NS Inj 1,000 ML @ Wide Open IV. 1999 / 1999 SIG BOLUS ONE Rx#:[id number] Vancomycin Inj 1,000 MG In NS 250 / 250 Inj 250 ML @ 200 mls/hr IV.SIG ONCE ONE Rx#:[id number] Oral 100 / 100 100 / 100 Other: # Voids 3 # Incontinent Voids 6 Date of Last Bowel Movement 06/26/18 06/27/18 # Bowel Movements 2 # Incontinent Bowel Movements 5 Result Diagrams: 06/27/18 10:45 06/27/18 10:45 Laboratory Results: Laboratory Results - last 24 hr 06/27/18 06/27/18 06/27/18 05:45 05:45 05:45 WBC 4.8 RBC 4.90 Hgb 12.6 Hct 38.8 MCV 79.0 L MCH 25.7 L MCHC 32.5 RDW 18.7 H Plt Count 21 L D MPV 8.3 Prelim Diff (Auto) Manual diff required Neut % (Auto) Lymph % (Auto) [place] % (Auto) Eos % (Auto) Baso % (Auto) Neut # (Auto) Lymph # (Auto) [place] # (Auto) Eos # (Auto) Baso # (Auto) WBC Differential Manual diff final Seg Neuts % (Manual) 53 Band Neuts % (Manual) 33 H Lymphocytes % (Manual) 1 L Monocytes % (Manual) 11 H Metamyelocytes % (Man) Myelocytes % (Man) Promyelocytes % (Man) 1 H Plasma Cell % (Manual) 1 H Abs Neuts (Manual) 4.2 Nucleated RBCs/100 WBC Differential Comment . Toxic Granulation 2+ H Toxic Vacuolation Present H Dohle Bodies Present H Platelet Estimate Low L Platelet Morphology Enlarged H Spherocytes Occ H Ovalocytes 1+ H [place] Cells 2+ H Keratocytes Occ H PT 14.7 H INR 1.5 APTT 35.7 H Fibrinogen 452 H Sodium 150 H Potassium 4.0 Chloride 125 H D Carbon Dioxide 15.3 L Anion Gap 10 BUN 55 H Creatinine 1.22 H Estimated GFR 44 L Random Glucose 173 H Calcium 6.9 L* Prot Corrected Calcium 8.2 L Phosphorus Magnesium Total Bilirubin 1.1 H AST 41 H ALT 46 Alkaline Phosphatase 37 L Total Creatine Kinase Total Protein 4.7 L Albumin 1.4 L D Triglycerides TSH 06/27/18 06/27/18 06/27/18 10:45 10:45 10:45 WBC 4.1 RBC 4.94 Hgb 12.7 Hct 38.5 MCV 78.1 L MCH 25.7 L MCHC 32.9 RDW 18.5 H Plt Count 17 L* MPV 8.5 Prelim Diff (Auto) Slide review pending Neut % (Auto) 95.5 H Lymph % (Auto) 0.8 L [place] % (Auto) 3.7 Eos % (Auto) 0.0 Baso % (Auto) 0.0 Neut # (Auto) 3.9 Lymph # (Auto) 0.0 L [place] # (Auto) 0.2 Eos # (Auto) 0.0 Baso # (Auto) 0.0 WBC Differential Manual diff final Seg Neuts % (Manual) 51 Band Neuts % (Manual) 34 H Lymphocytes % (Manual) 3 L Monocytes % (Manual) 6 Metamyelocytes % (Man) 2 H Myelocytes % (Man) 4 H Promyelocytes % (Man) Plasma Cell % (Manual) Abs Neuts (Manual) 3.7 Nucleated RBCs/100 WBC 3 H Differential Comment . Toxic Granulation Toxic Vacuolation Dohle Bodies Platelet Estimate Low L Platelet Morphology Enlarged H Spherocytes Ovalocytes 1+ H [place] Cells 2+ H Keratocytes PT 15.1 H INR 1.5 APTT Fibrinogen Sodium 154 H Potassium 4.0 Chloride 126 H Carbon Dioxide 15.9 L Anion Gap 12 BUN 55 H Creatinine 1.13 H Estimated GFR 48 L Random Glucose 148 H Calcium 6.7 L* Prot Corrected Calcium 8.0 L Phosphorus 1.1 L Magnesium 1.6 Total Bilirubin 1.0 AST 34 ALT 44 Alkaline Phosphatase 38 L Total Creatine Kinase 137 Total Protein 4.6 L Albumin 1.4 L Triglycerides 132 TSH 0.984 06/27/18 06/27/18 10:45 10:45 WBC RBC Hgb Hct MCV MCH MCHC RDW Plt Count MPV Prelim Diff (Auto) Neut % (Auto) Lymph % (Auto) [place] % (Auto) Eos % (Auto) Baso % (Auto) Neut # (Auto) Lymph # (Auto) [place] # (Auto) Eos # (Auto) Baso # (Auto) WBC Differential Seg Neuts % (Manual) Band Neuts % (Manual) Lymphocytes % (Manual) Monocytes % (Manual) Metamyelocytes % (Man) Myelocytes % (Man) Promyelocytes % (Man) Plasma Cell % (Manual) Abs Neuts (Manual) Nucleated RBCs/100 WBC Differential Comment Toxic Granulation Toxic Vacuolation Dohle Bodies Platelet Estimate Platelet Morphology Spherocytes Ovalocytes [place] Cells Keratocytes PT INR APTT Fibrinogen Sodium Potassium Chloride Carbon Dioxide Anion Gap BUN Creatinine Estimated GFR Random Glucose Calcium Prot Corrected Calcium Phosphorus Magnesium Total Bilirubin AST ALT Alkaline Phosphatase Total Creatine Kinase Cancelled Total Protein Albumin Triglycerides TSH Cancelled Culture Results: Microbiology 06/25/18 12:25 Aerobic Blood Culture - Preliminary Blood - Peripheral Pseudomonas aeruginosa Anaerobic Blood Culture - Final QNS - See aerobic report. 06/25/18 12:10 Aerobic Blood Culture - Preliminary Blood - Peripheral Anaerobic Blood Culture - Final QNS - See aerobic report. Imaging Studies: Impressions Chest X-Ray 06/26/18 21:44 CONCLUSION: 1. Mild pulmonary edema has developed. 2. New left IJ central venous catheter with tip in the superior vena cava. No pneumothorax. 3. Unchanged right arm PICC with tip in the superior vena cava. Medications: Active Medications Generic Name Dose Route Start Last Admin Trade Name Freq PRN Reason Stop Dose Admin Dexamethasone Sodium Phosphate 4 mg 06/26/18 00:00 06/27/18 05:39 Decadron Inj IV.PUSH 4 mg Q6HR PABLO Administration Filgrastim 480 mcg 06/25/18 22:00 06/26/18 14:08 Neupogen Inj SQ 480 mcg DAILY@1400 PABLO Administration Hydromorphone HCl 0.5 mg 06/26/18 14:00 06/26/18 21:08 Dilaudid Pf Inj IV.PUSH 0.5 mg Q3H PRN Administration PAIN 3-10 Meropenem 1,000 mg/ Sodium 100 mls @ 200 mls/hr 06/26/18 21:00 06/27/18 10:24 Chloride IV.SIG 100 mls/hr Q12H PABLO Administration Amiodarone HCl 450 mg/ 250 mls @ 33.33 mls/hr 06/27/18 04:37 06/27/18 05:31 Dextrose IV.CONT 1 mg/min TITRATE PRN 33.33 mls/hr Per Protocol Administration Protocol 1 MG/MIN Levothyroxine Sodium 50 mcg 06/26/18 06:00 06/27/18 05:43 Synthroid PO 50 mcg DAILY@0600 PABLO Administration Ondansetron HCl 4 mg 06/26/18 04:31 06/26/18 04:43 Zofran Inj IV.PUSH 4 mg Q6H PRN Administration NAUSEA OR VOMITING Pantoprazole Sodium 40 mg 06/25/18 16:00 06/27/18 10:23 Protonix Inj IV.PUSH 40 mg Q12HR PABLO Administration Vancomycin HCl 500 mg 06/27/18 00:00 06/27/18 05:43 Vancomycin Po PO 500 mg Q6H PABLO Administration Objective Remarks: GENERAL: Chronically ill patient. SKIN: Warm and dry. HEAD: Normocephalic. EYES: No scleral icterus. No injection or drainage. NECK: Supple, trachea midline. No JVD or lymphadenopathy. LYMPHATIC: No adenopathy. CARDIOVASCULAR: Regular rate and rhythm without murmurs. RESPIRATORY: Breath sounds equal bilaterally. No accessory muscle use. GASTROINTESTINAL: Abdomen tender and distended. EXTREMITIES: No cyanosis, or edema. NEUROLOGICAL: Lethargic Assessment/Plan - Plan Ms. 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 She had received 5 days of chemotherapy, completed on 06/13/2018. She is currently receiving radiation therapy which started on she was admitted for acute renal failure related to dehydration, intractable diarrhea from radiation chemotherapy. Plan: 1. Squamous cell carcinoma of the anorectum, status post first cycle of chemotherapy with mitomycin and 5-FU, completed on 06/13/2018. Currently receiving radiation therapy. 2. Acute renal failure due to dehydration. Management per attending. On IV fluids. 3. Fever, T-max 101.2 F. Blood culture growing pseudomonas aeruginosa. Currently on cefepime. Will consult infectious disease and start vancomycin. 4. Pancytopenia, status post chemotherapy. WBC 1.5, ANC 1200 today. Currently on Neupogen. Hemoglobin stable at 12.6. Platelets low at 41,000. 5. Discoloration to right great toe, patient reportedly has raynaud's syndrome. Keep extremities warm. Continue to monitor closely. Will order coags to evaluate for DIC. 6. 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 Continue good hygiene after each loose stool, continue to apply barrier cream. 06/27/2018 Patient has sepsis. Antibiotics per ID and blueprinter. Neutropenia has resolved. Continue Neupogen until ANC more than 5000 Start TPN and keep her n.p.o. for ileus. Discussed with blueprinter Dr. Lawson Stop IV Decadron. Lomotil is on hold. Dr. Coon input noted Continue maximum supportive care.
[2018-06-27] MEDS: Insulin NovoLOG Aspart Correctional Sugar Inj SQ SCH ×3 (14:12→23:24)
[2018-06-27] MEDS ORDERED: Acetaminophen 325 MG Tablet PO PRN (14:12)
--- NOTE | 2018-06-27 14:57 | ECG ---
Date Performed: 06/27/2018 Time Performed: 04:31:24 PTAGE: 72 years EKG: Atrial fibrillation with uncontrolled ventricular response. Poor R wave progression - proba ble normal variant Low QRS voltages in limb leads Abnormal ECG NO PREVIOUS TRACING DOCTOR: Meir Nur Interpretating Date/Time 06/27/2018 14:56:48
[2018-06-27] MEDS ORDERED: Sodium Chlor 0.9% Inj 250 ML IV.SIG SCH (15:00)
--- NOTE | 2018-06-27 15:26 | P.CONID ---
History of Present Illness Service: ID Consult date: 06/27/18 Requesting Physician: Yuliya Lawson Reason for Consult: PSAE sepsis Primary Care Provider: Lei Palomo MD Chief Complaint: generalized weakness, diarrhea, anorexia History of Present Illness: 72 yo female with anal squamous cell carcinoma. 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 SHe is on chemotherapy and undergoing radiation therapy. Chemotherapy apparently was started in mid 05/2018. She has had a couple weeks of radiation therapy and 1 course of 5-FU and mitomycin C per protocol for a squamous cell carcinoma of the anal canal. Pt developped abdominal pain, malaise, abdominal distension and diarrhea Her last XRT was cancelled because of the above findings and pt was admitted for generalised weakness and hypotension. She was found pancytopenic with ANC 768. CT abd/pelvis showed fluid filled small bowel c/w partial SBO or ileus. She was admitted to hospitalist service. Blood cultures were obtained /3 which have now resulted + pseudomonas in 1/4 bottles. She was started on cefepime 2 gram IV and vancomycin per hematology. Tmax was 101.2 Cartridge Gauger consult has been requested. She has a RUE PICC placed 06/09 which was removed yday Her abx were switched to meropenem+ vancomycin C.diff toxin was negative PMFSH - History History Provided By: Patient, Family Member - Medical History Medical History: Medical History (Last Updated 06/27/18 @ 13:38 by DAMI Eldridge) Diverticulosis GERD (gastroesophageal reflux disease) Hx of cervical cancer Hypothyroidism Raynaud phenomenon FH: chemotherapy Mixed connective tissue disease Rectal cancer - Surgical History Surgical History: Surgical History (Last Updated 06/27/18 @ 13:40 by DAMI Eldridge) History of hysterectomy (Acute) History of biopsy Hx of appendectomy Hx of colonoscopy Hx of lumpectomy - Family History Family History: Family History (Last Reviewed 06/27/18 @ 15:42 by DAMI Eldridge) Brother Multiple sclerosis - Tobacco History Second Hand Smoke Exposure: No Smoking Status: Former smoker - Alcohol History How Often Do You Have a Drink Containing Alcohol: Never - Substance Use History Substance History: No History of Abuse - Immunization History Tetanus Immunization: Unsure Hx Influenza Vaccine This Season: No Medications and Allergies Active Medications: Active Medications Acetaminophen (Tylenol) 650 mg PO Q4H PRN PRN Reason: SEE LABEL COMMENTS Albuterol (Duoneb Neb (Prn)) 1 ampul NEB Q2HR NEB PRN PRN Reason: DYSPNEA Albuterol (Duoneb Neb (Fern)) 1 ampul NEB Q4HR NEB FERN Dextrose (D50w Vial) 50 ml IV.PUSH UNSCH PRN PRN Reason: PER HYPOGLYCEMIA PROTOCOL Diphenhydramine HCl (Benadryl) 25 mg PO Q4H PRN PRN Reason: SEE LABEL COMMENTS Diphenoxylate HCl/Atropine (Lomotil) 2 tab PO Q6H PRN PRN Reason: DIARRHEA Filgrastim (Neupogen Inj) 480 mcg SQ DAILY@1400 FERN Last Admin: 06/26/18 14:08 Dose: 480 mcg Glucagon (Glucagon Inj) 1 mg OTHER PRN PRN PRN Reason: for Hypoglycemia Protocol Hydromorphone HCl (Dilaudid Pf Inj) 0.5 mg IV.PUSH Q3H PRN PRN Reason: PAIN 3-10 Last Admin: 06/26/18 21:08 Dose: 0.5 mg Vancomycin HCl 750 mg/ Sodium (Chloride) 257.5 mls @ 250 mls/hr IV.SIG Q24H FERN Norepinephrine Bitartrate (Levophed-Dextrose 4 Mg/250 Ml Drip) 4 mg in 250 mls @ 7.5 mls/hr IV.SIG TITRATE PRN; Protocol PRN Reason: Per Protocol Meropenem 1,000 mg/ Sodium (Chloride) 100 mls @ 200 mls/hr IV.SIG Q12H FERN Last Infusion: 06/27/18 14:29 Dose: Infused Amiodarone HCl 450 mg/ (Dextrose) 250 mls @ 33.33 mls/hr IV.CONT TITRATE PRN; Protocol PRN Reason: Per Protocol Last Admin: 06/27/18 05:31 Dose: 1 mg/min, 33.33 mls/hr Multivitamins 10 ml/ Folic Acid 1 mg/ Amino Acids/Electrolytes 2,010.2 mls @ 42.214 mls/hr IV.SIG Q24H FERN Fat Emulsion Intravenous (Intralipid 20% Inj) 250 mls @ 31.25 mls/hr IV.SIG Q24H FERN Dextrose (D5w Inj) 1,000 mls @ 50 mls/hr IV.CONT .Q20H FERN Stop: 06/28/18 09:29 Last Admin: 06/27/18 14:12 Dose: 50 mls/hr Sodium Chloride (Ns Inj) 250 mls @ 15 mls/hr IV.SIG ONCE FERN Stop: 06/28/18 07:39 Insulin Aspart (Novolog Insulin Correctional Sugar Inj) 0 unit SQ Q6HR FERN; Protocol Last Admin: 06/27/18 14:12 Dose: Not Given Levothyroxine Sodium (Synthroid) 50 mcg PO DAILY@0600 [facility] Last Admin: 06/27/18 05:43 Dose: 50 mcg Miscellaneous (Pill Splitter) 1 each OTHER UNSCH PRN PRN Reason: PILL SPIT Miscellaneous Information ([facility] Ordered Lab Info) 0 each OTHER ONCE ONE Stop: 06/29/18 15:46 Ondansetron HCl (Zofran Inj) 4 mg IV.PUSH Q6H PRN PRN Reason: NAUSEA OR VOMITING Last Admin: 06/27/18 14:12 Dose: 4 mg Pantoprazole Sodium (Protonix Inj) 40 mg IV.PUSH Q12HR [facility] Last Admin: 06/27/18 10:23 Dose: 40 mg Pharmacy Profile Note (Vancomycin Consult Pharmacy) 1 each OTHER UNSCH PRN PRN Reason: Pharmacy to dose Sodium Chloride (Ns Flush) 2 ml IV.FLUSH BID [facility] Sodium Chloride (Ns Flush) 2 ml IV.FLUSH PRN PRN PRN Reason: FLUSH AFTER USING IV ACCESS Terbutaline Sulfate (Brethine Inj) 1 mg SQ UNSCH PRN PRN Reason: For Extravasation Vancomycin HCl (Vancomycin Po) 500 mg PO Q6H [facility] Last Admin: 06/27/18 13:24 Dose: Not Given Allergies Allergy/AdvReac Type Severity Reaction Status Date / Time No Known Allergies Allergy Verified 06/25/18 12:06 Home Medications Medication Instructions Recorded Confirmed Type cimetidine [Tagamet HB] 200 mg PO TID 06/09/18 06/25/18 History levothyroxine [Synthroid] 50 mcg PO DAILY 06/09/18 06/25/18 History omeprazole magnesium [Prilosec] 40 mg PO DAILY 06/09/18 06/25/18 History zolpidem 12.5 mg PO 06/25/18 History Exam Vital signs: Vital Signs 06/26/18 15:30 06/26/18 16:00 06/26/18 16:30 Temperature 98.7 F Pulse Rate 119 H 122 H 122 H Respiratory Rate 11 L 13 9 L Blood Pressure 88/53 L 87/50 L 85/53 L Pulse Oximetry 97 06/26/18 17:00 06/26/18 17:30 06/26/18 18:00 Temperature Pulse Rate 123 H 122 H 122 H Respiratory Rate 12 13 10 L Blood Pressure 85/54 L 87/54 L 88/55 L Pulse Oximetry 97 95 96 06/26/18 18:30 06/26/18 19:00 06/26/18 19:05 Temperature Pulse Rate 122 H 124 H 123 H Respiratory Rate 10 L 25 H 13 Blood Pressure 87/55 L 81/53 L 81/53 L Pulse Oximetry 96 90 L 97 06/26/18 19:30 06/26/18 20:00 06/26/18 20:03 Temperature 98.9 F Pulse Rate 119 H 118 H 114 H Respiratory Rate 18 22 16 Blood Pressure 88/58 L 95/57 L Pulse Oximetry 90 L 97 97 06/26/18 20:30 06/26/18 20:37 06/26/18 21:00 Temperature Pulse Rate 113 H 114 H 111 H Respiratory Rate 18 19 20 Blood Pressure 92/59 L 89/59 L Pulse Oximetry 88 L 98 06/26/18 21:02 06/26/18 21:30 06/26/18 21:42 Temperature Pulse Rate 111 H 141 H 150 H Respiratory Rate 21 27 H 19 Blood Pressure 94/56 L 91/63 L 119/59 L Pulse Oximetry 06/26/18 22:00 06/26/18 22:30 06/26/18 23:00 Temperature Pulse Rate 151 H 155 H 124 H Respiratory Rate 29 H 19 28 H Blood Pressure 106/70 98/59 L 98/66 L Pulse Oximetry 96 06/26/18 23:30 06/26/18 23:35 06/27/18 00:00 Temperature 98.8 F Pulse Rate 117 H 119 H 114 H Respiratory Rate 20 32 H 30 H Blood Pressure 85/57 L 98/61 L 98/64 L Pulse Oximetry 99 06/27/18 00:30 06/27/18 01:00 06/27/18 01:30 Temperature Pulse Rate 110 H 105 H 104 H Respiratory Rate 30 H 26 H 29 H Blood Pressure 94/60 L 110/59 L 99/67 L Pulse Oximetry 76 L 06/27/18 02:00 06/27/18 02:30 06/27/18 03:00 Temperature Pulse Rate 103 H 100 H 107 H Respiratory Rate 32 H 20 14 Blood Pressure 100/60 109/76 99/62 L Pulse Oximetry 91 L 06/27/18 03:26 06/27/18 03:30 06/27/18 04:00 Temperature 98.1 F Pulse Rate 158 H 157 H 159 H Respiratory Rate 30 H 31 H 29 H Blood Pressure 107/58 L 90/62 L 97/71 L Pulse Oximetry 82 L 06/27/18 04:30 06/27/18 05:00 06/27/18 05:09 Temperature Pulse Rate 161 H 160 H 148 H Respiratory Rate 21 21 26 H Blood Pressure 106/59 L 78/56 L 80/59 L Pulse Oximetry 94 L 95 95 06/27/18 05:15 06/27/18 05:31 06/27/18 05:45 Temperature Pulse Rate 157 H 124 H 130 H Respiratory Rate 17 26 H 25 H Blood Pressure 81/59 L 100/60 98/59 L Pulse Oximetry 96 95 95 06/27/18 06:00 06/27/18 06:15 06/27/18 06:30 Temperature Pulse Rate 134 H 134 H 137 H Respiratory Rate 23 32 H 31 H Blood Pressure 101/66 99/62 L 93/63 L Pulse Oximetry 94 L 06/27/18 06:45 06/27/18 07:00 06/27/18 07:01 Temperature Pulse Rate 134 H 136 H 137 H Respiratory Rate 22 27 H 34 H Blood Pressure 92/63 L 115/70 Pulse Oximetry 06/27/18 07:15 06/27/18 07:30 06/27/18 07:45 Temperature Pulse Rate 101 H 94 H 100 H Respiratory Rate 22 24 26 H Blood Pressure 99/55 L 92/54 L 97/66 L Pulse Oximetry 80 L 92 L 87 L 06/27/18 08:00 06/27/18 13:22 Temperature Pulse Rate 92 H Respiratory Rate 23 Blood Pressure 99/53 L Pulse Oximetry 94 L 93 L Intake & Output 06/26/18 06/27/18 06/27/18 18:59 06:59 18:59 Intake Total 1465 / 1465 4230 / 4230 815 / 815 Balance 1465 / 1465 4230 / 4230 815 / 815 Weight 52.5 kg Intake: IV 1365 / 1365 4130 / 4130 815 / 815 D5W/1/2 NS Inj 1,000 ML @ 50 100 / 100 mls/hr IV.CONT .Q20H FERN Rx#: [id number] KCl Inj 30 MEQ In D5W/Normal 1015 / 1015 2029 / 2029 515 / 515 Saline Inj 1,000 ML @ 70 mls/hr IV.CONT .[id number] FERN Rx#: [id number] Cordarone Inj 150 MG In D5W Inj 100 / 100 97 ML @ 600 mls/hr IV.SIG ONCE ONE Rx#:[id number] Maxipime Inj 2,000 MG In NS Inj 100 / 100 100 ML @ 200 mls/hr IV.SIG Q12H FERN Rx#:[id number] Merrem Inj 1,000 MG In NS Inj 100 / 100 100 / 100 100 ML @ 200 mls/hr IV.SIG Q12H FERN Rx#:[id number] NS Inj 1,000 ML @ Wide Open IV. 1999 SIG BOLUS ONE Rx#:[id number] Vancomycin Inj 1,000 MG In NS 250 / 250 Inj 250 ML @ 200 mls/hr IV.SIG ONCE ONE Rx#:[id number] Oral 100 / 100 100 / 100 Other: # Voids 3 # Incontinent Voids 6 Date of Last Bowel Movement 06/26/18 06/27/18 # Bowel Movements 2 # Incontinent Bowel Movements 5 - Constitutional mild distress, thin, chronically ill appearing - Routine HEENT Exam Head: Present: normocephalic, atraumatic Eye: Present: EOMI, PERRL ENT: Present: mucous membranes moist, oropharynx clear - Routine Neck Exam Present: supple. Absent: JVD - Routine Respiratory Exam Present: CTA bilaterally. Absent: accessory muscle use, rhonchi - Routine Cardiovascular Exam Present: S1, S2, irregularly irregular. Absent: murmur, gallop, rubs Comments: Afib on monitor - Routine Abdominal Exam Present: soft, normoactive bowel sounds, tenderness (diffuse more prominent in lowe r qudrants), distended, surgical scars (well healed low tranverse laparotomy). Absent: rebound, guarding, firm, rigid, organomegaly, mass - Routine Extremities Exam Present: cyanosis (multiple cyanotic figner and toes tips ), full ROM. Absent : clubbing, edema - Routine Skin Exam Present: dry. Absent: rash - Routine Neurological Exam Present: alert, oriented X3, CN II-XII intact, moving all extremities, hearing grossly intact, normal speech - Routine Psychiatric Exam Present: cooperative, depressed Results - Labs CBC & Chem 7: 06/27/18 10:45 06/27/18 10:45 Labs: Laboratory Results - last 24 hr 06/27/18 06/27/18 06/27/18 05:45 05:45 05:45 WBC 4.8 RBC 4.90 Hgb 12.6 Hct 38.8 MCV 79.0 L MCH 25.7 L MCHC 32.5 RDW 18.7 H Plt Count 21 L D MPV 8.3 Prelim Diff (Auto) Manual diff required Neut % (Auto) Lymph % (Auto) Banner % (Auto) Eos % (Auto) Baso % (Auto) Neut # (Auto) Lymph # (Auto) Banner # (Auto) Eos # (Auto) Baso # (Auto) WBC Differential Manual diff final Seg Neuts % (Manual) 53 Band Neuts % (Manual) 33 H Lymphocytes % (Manual) 1 L Monocytes % (Manual) 11 H Metamyelocytes % (Man) Myelocytes % (Man) Promyelocytes % (Man) 1 H Plasma Cell % (Manual) 1 H Abs Neuts (Manual) 4.2 Nucleated RBCs/100 WBC Differential Comment . Toxic Granulation 2+ H Toxic Vacuolation Present H Dohle Bodies Present H Platelet Estimate Low L Platelet Morphology Enlarged H Spherocytes Occ H Ovalocytes 1+ H Darwin Cells 2+ H Keratocytes Occ H PT 14.7 H INR 1.5 APTT 35.7 H Fibrinogen 452 H Sodium 150 H Potassium 4.0 Chloride 125 H D Carbon Dioxide 15.3 L Anion Gap 10 BUN 55 H Creatinine 1.22 H Estimated GFR 44 L POC Glucose Random Glucose 173 H Calcium 6.9 L* Prot Corrected Calcium 8.2 L Phosphorus Magnesium Total Bilirubin 1.1 H AST 41 H ALT 46 Alkaline Phosphatase 37 L Total Creatine Kinase Total Protein 4.7 L Albumin 1.4 L D Triglycerides TSH Bld Prod Order Comment 06/27/18 06/27/18 06/27/18 10:45 10:45 10:45 WBC 4.1 RBC 4.94 Hgb 12.7 Hct 38.5 MCV 78.1 L MCH 25.7 L MCHC 32.9 RDW 18.5 H Plt Count 17 L* MPV 8.5 Prelim Diff (Auto) Slide review pending Neut % (Auto) 95.5 H Lymph % (Auto) 0.8 L Banner % (Auto) 3.7 Eos % (Auto) 0.0 Baso % (Auto) 0.0 Neut # (Auto) 3.9 Lymph # (Auto) 0.0 L Banner # (Auto) 0.2 Eos # (Auto) 0.0 Baso # (Auto) 0.0 WBC Differential Manual diff final Seg Neuts % (Manual) 51 Band Neuts % (Manual) 34 H Lymphocytes % (Manual) 3 L Monocytes % (Manual) 6 Metamyelocytes % (Man) 2 H Myelocytes % (Man) 4 H Promyelocytes % (Man) Plasma Cell % (Manual) Abs Neuts (Manual) 3.7 Nucleated RBCs/100 WBC 3 H Differential Comment . Toxic Granulation Toxic Vacuolation Dohle Bodies Platelet Estimate Low L Platelet Morphology Enlarged H Spherocytes Ovalocytes 1+ H Darwin Cells 2+ H Keratocytes PT 15.1 H INR 1.5 APTT Fibrinogen Sodium 154 H Potassium 4.0 Chloride 126 H Carbon Dioxide 15.9 L Anion Gap 12 BUN 55 H Creatinine 1.13 H Estimated GFR 48 L POC Glucose Random Glucose 148 H Calcium 6.7 L* Prot Corrected Calcium 8.0 L Phosphorus 1.1 L Magnesium 1.6 Total Bilirubin 1.0 AST 34 ALT 44 Alkaline Phosphatase 38 L Total Creatine Kinase 137 Total Protein 4.6 L Albumin 1.4 L Triglycerides 132 TSH 0.984 Bld Prod Order Comment 06/27/18 06/27/18 06/27/18 10:45 10:45 14:10 WBC RBC Hgb Hct MCV MCH MCHC RDW Plt Count MPV Prelim Diff (Auto) Neut % (Auto) Lymph % (Auto) Banner % (Auto) Eos % (Auto) Baso % (Auto) Neut # (Auto) Lymph # (Auto) Banner # (Auto) Eos # (Auto) Baso # (Auto) WBC Differential Seg Neuts % (Manual) Band Neuts % (Manual) Lymphocytes % (Manual) Monocytes % (Manual) Metamyelocytes % (Man) Myelocytes % (Man) Promyelocytes % (Man) Plasma Cell % (Manual) Abs Neuts (Manual) Nucleated RBCs/100 WBC Differential Comment Toxic Granulation Toxic Vacuolation Dohle Bodies Platelet Estimate Platelet Morphology Spherocytes Ovalocytes Darwin Cells Keratocytes PT INR APTT Fibrinogen Sodium Potassium Chloride Carbon Dioxide Anion Gap BUN Creatinine Estimated GFR POC Glucose 107 Random Glucose Calcium Prot Corrected Calcium Phosphorus Magnesium Total Bilirubin AST ALT Alkaline Phosphatase Total Creatine Kinase Cancelled Total Protein Albumin Triglycerides TSH Cancelled Bld Prod Order Comment 06/27/18 14:35 WBC RBC Hgb Hct MCV MCH MCHC RDW Plt Count MPV Prelim Diff (Auto) Neut % (Auto) Lymph % (Auto) Banner % (Auto) Eos % (Auto) Baso % (Auto) Neut # (Auto) Lymph # (Auto) Banner # (Auto) Eos # (Auto) Baso # (Auto) WBC Differential Seg Neuts % (Manual) Band Neuts % (Manual) Lymphocytes % (Manual) Monocytes % (Manual) Metamyelocytes % (Man) Myelocytes % (Man) Promyelocytes % (Man) Plasma Cell % (Manual) Abs Neuts (Manual) Nucleated RBCs/100 WBC Differential Comment Toxic Granulation Toxic Vacuolation Dohle Bodies Platelet Estimate Platelet Morphology Spherocytes Ovalocytes Darwin Cells Keratocytes PT INR APTT Fibrinogen Sodium Potassium Chloride Carbon Dioxide Anion Gap BUN Creatinine Estimated GFR POC Glucose Random Glucose Calcium Prot Corrected Calcium Phosphorus Magnesium Total Bilirubin AST ALT Alkaline Phosphatase Total Creatine Kinase Total Protein Albumin Triglycerides TSH Bld Prod Order Comment - Imaging Impressions Chest X-Ray 06/26/18 21:44 CONCLUSION: 1. Mild pulmonary edema has developed. 2. New left IJ central venous catheter with tip in the superior vena cava. No pneumothorax. 3. Unchanged right arm PICC with tip in the superior vena cava. Assessment and Plan - Plan Stage II anal canal carcinoma, undergoing XRT, chemo PSAE sepsis on presentation, source ? PICC vs UTI Sepsis cont meropenem Fu sensitivity of PSAE dc vancomycin IV cont oral vanco, untill c.diff test completed FU C.diff antigen oscar case was dw Kimberly Avendano RN dw daughters @ b/s
--- NOTE | 2018-06-27 15:44 | P.DIET ---
Nutritional Evaluation Type of nutrition evaluation: initial Nutrition consult regarding: TPN/PPN [place] [facility] [place] Objective - Diagnosis Diarrhea. PMH See H&P - Objective [place] body weight: 53 kg % IBW: 100 Body Weight Used for Calculations: Actual Energy Needs - Lower Range (kCal/kg): 30 Energy Needs - Upper Range (kCal/kg): 35 Lower Limit kCal/kg (kCals): 1,590 Upper Limit kCal/kg (kCals): 1,855 Lower Limit Protein Factor (Grams per Kg): 1 Upper Limit Protein Factor (Grams per Kg): 1.5 Lower Protein Needs (Protein): 53 Upper Protein Needs (Protein): 80 Dietitian Reviewed in Medical Record: Curent medications, Intake & Output, Labs , Medical history, TPN/PPN Diet Order: NPO Assessment Assessment: Pt. is at nutritional risk due to dx. and need for TPN. Pt. with past medical history of anorectal squamous cell carcinoma, mixed connective tissue disease ( SLE, Reynaud's, Polymyositis), remote cervical cancer status post hysterectomy, hypothyroid . She originally developed anal pain and bleeding in January of 2018. She was referred to Dr. Coelho who performed biopsy of anal mass on 04/25/18 which demonstrated invasive squamous cell carcinoma. She has reportedly been having loose watery stools for several days, difficult to determine exact time of onset. She has also had abdominal pain. When she presented for radiation treatment on 06/25, she was weak and hypotensive so she was sent to the ED. She was pancytopenic with ANC 768. CT abd/pelvis showed fluid filled small bowel c/ w partial SBO or ileus. She has had a PICC line placed to start TPN/PPN. Recommend starting TPN 5/25 @ 50mls/hr with 20% lipids @ 31.25mls/hr over 8 hours. Will provide 1760kcals and 60g of protein. Monitor TPN, labs, UOP, BM and skin Recommendations: 1. Recommend starting TPN 5/25 @ 50mls/hr with 20% lipids @ 31.25mls/hr over 8 hours. 2. Monitor TPN, labs, UOP, BM and skin Dietitian to Monitor: Lab values, Electrolytes, Renal labs, Glucose level, TPN/ PPN tolerance, Weight change, Diet advancement, Wound/skin status, Medical course
[2018-06-27] MEDS ORDERED: Vancomycin Inj 750 MG in Sodium Chlor 0.9% Inj 250 ML IV.SIG SCH (16:00)
[2018-06-27 18:01] LABS: Bilirubin,Urine Negative (Negative); Clarity,Urine Cloudy (Clear); Color,Urine Yellow (Yellw/Straw); Glucose,Urine (UA) 50 mg/dL (Negative); Leukocyte Esterase,Urine Moderate (Negative); Mucus,Urine Few /lpf (Occasional); Nitrite,Urine Negative (Negative); Specific Gravity,Urine 1.015 (1.002-1.035)
[2018-06-27] MEDS: Multivitamin Inj 10 ML, Folic Acid Inj 1 MG in AA 5%/D20W - Electrolytes 2,000 ML IV.SIG SCH (20:57)
[2018-06-27] MEDS: Sodium Chloride 0.9% 2 ML Flush BID IV.FLUSH SCH (20:57)
[2018-06-28] MEDS: HYDROmorphone PF Inj 2 MG/ML Vial IV.PUSH PRN ×3 (00:25→22:18)
[2018-06-28] MEDS: Sodium Chloride 0.9% 2 ML Flush PRN IV.FLUSH ×2 (00:27→06:02)
[2018-06-28 04:43] LABS: Hematocrit 39.2 % (35.0-46.0); Hemoglobin 13.7 gm/dL (11.6-15.3); Mean Corpuscular Hemoglobin 27.3 pg (27.0-34.0); Mean Corpuscular Volume 78.2 fL (80.0-100.0); Mean Platelet Volume 8.7 fL (7.0-11.0); Platelet Count 35 th/mm3 (150-450); Red Blood Count 5.01 mil/mm3 (4.00-5.30); Red Cell Distribution Width 19.4 % (11.6-17.2); White Blood Count 7.8 th/mm3 (4.0-11.0)
[2018-06-28 05:34] LABS: Albumin 1.4 g/dL (3.4-5.0); Calcium 6.8 mg/dL (8.5-10.1); Carbon Dioxide 13.9 meq/L (21.0-32.0); Magnesium 1.6 mg/dL (1.5-2.5); Potassium 3.2 meq/L (3.5-5.1)
[2018-06-28] MEDS: Insulin NovoLOG Aspart Correctional Sugar Inj SQ SCH ×3 (05:52→20:26)
[2018-06-28] MEDS: Levothyroxine 50 MCG Tablet PO SCH (05:59)
--- NOTE | 2018-06-28 09:20 | P.PNCC ---
Subjective Subjective Remarks/Hospital Course: 72-year-old female with past medical history of anorectal squamous cell carcinoma, mixed connective tissue disease (SLE, Reynaud's, Polymyositis), remote cervical cancer status post hysterectomy, hypothyroid . She originally developed anal pain and bleeding in January of 2018. She was referred to Dr. Coelho who performed biopsy of anal mass on 04/25/18 which demonstrated invasive squamous cell carcinoma. Outpatient PET reportedly showed no local or distant metastatic disease. She has been undergoing radiation therapy under the care of Dr Concepcion. Concurrent chemotherapy is planned for week 1 and 5 of radiation; and she completed first chemo cycle 06/13/18. She has reportedly been having loose watery stools for several days, difficult to determine exact time of onset. She has also had abdominal pain. When she presented for radiation treatment on 06/25, she was weak and hypotensive so she was sent to the ED. She was pancytopenic with ANC 768. CT abd/pelvis showed fluid filled small bowel c/ w partial SBO or ileus. She was admitted to hospitalist service. Blood cultures were obtained 09/25 which have now resulted + pseudomonas in 09/26 bottles. She was started on cefepime 2 gram IV and vancomycin per hematology. Tmax was 101.2 Trailer Steerer consult has been requested. She has a RUE PICC placed 06/09 which does not have overt clinical signs of infection, but will be removed. 06/27 Patient is lethargic on Amio drip ( HR now controlled) Afebrile. 06/28 patient lying on bed very lethargic remains on amiodarone infusion. Appears very critical. WBC count is improved to 7.8, platelet count of 35. BUN /creatinine further elevated at 66/1.36. Patient not to be weaker on the right upper and lower extremity-I do not see any history of CVA. Will check CT of the head stat. Patient is not a candidate for TPA due to severe thrombocytopenia, so will not initiate stroke alert. Breathing slightly labored Objective Vital Signs / I&O: Vital Signs 06/27/18 09:30 06/27/18 09:57 06/27/18 10:00 Temperature Pulse Rate 92 H 91 H 88 Respiratory Rate 33 H 33 H 27 H Blood Pressure 100/58 L 104/62 97/59 L Pulse Oximetry 90 L 89 L 89 L 06/27/18 10:21 06/27/18 10:38 06/27/18 10:45 Temperature Pulse Rate 86 89 88 Respiratory Rate 23 32 H 32 H Blood Pressure 99/59 L 110/67 108/58 L Pulse Oximetry 91 L 92 L 90 L 06/27/18 11:00 06/27/18 11:15 06/27/18 11:30 Temperature Pulse Rate 87 83 88 Respiratory Rate 29 H 28 H 33 H Blood Pressure 104/55 L 101/55 L 94/54 L Pulse Oximetry 90 L 87 L 89 L 06/27/18 11:45 06/27/18 12:00 06/27/18 12:15 Temperature 97.5 F L Pulse Rate 83 85 85 Respiratory Rate 25 H 27 H 33 H Blood Pressure 92/56 L 98/58 L 96/60 L Pulse Oximetry 89 L 89 L 90 L 06/27/18 12:30 06/27/18 12:46 06/27/18 13:00 Temperature Pulse Rate 84 90 85 Respiratory Rate 28 H 31 H 30 H Blood Pressure 94/59 L 113/59 L 103/62 Pulse Oximetry 90 L 90 L 89 L 06/27/18 13:15 06/27/18 13:22 06/27/18 13:30 Temperature Pulse Rate 87 85 Respiratory Rate 35 H 32 H Blood Pressure 97/64 L 97/65 L Pulse Oximetry 88 L 93 L 90 L 06/27/18 13:45 06/27/18 14:00 06/27/18 14:15 Temperature Pulse Rate 86 86 86 Respiratory Rate 33 H 34 H 32 H Blood Pressure 103/64 103/66 97/63 L Pulse Oximetry 90 L 90 L 89 L 06/27/18 14:30 06/27/18 14:45 06/27/18 15:00 Temperature Pulse Rate 89 86 86 Respiratory Rate 35 H 33 H 32 H Blood Pressure 105/61 104/62 103/65 Pulse Oximetry 89 L 89 L 89 L 06/27/18 16:00 06/27/18 16:49 06/27/18 16:58 Temperature 98 F 98.5 F Pulse Rate 88 96 H 86 Respiratory Rate 28 H 24 23 Blood Pressure 112/73 119/66 Pulse Oximetry 89 L 90 L 06/27/18 20:00 06/27/18 21:32 10/06/18 00:00 Temperature 97.6 F 97.6 F Pulse Rate 85 89 92 H Respiratory Rate 25 H 17 26 H Blood Pressure 97/63 L 98/65 L Pulse Oximetry 90 L 90 L 91 L 06/28/18 00:22 06/28/18 04:00 06/28/18 04:21 Temperature 97 F L Pulse Rate 128 H 129 H 123 H Respiratory Rate 20 22 22 Blood Pressure 103/71 Pulse Oximetry 91 L 06/28/18 08:00 06/28/18 08:53 06/28/18 09:00 Temperature 97.2 F L Pulse Rate 93 H 97 H 96 H Respiratory Rate 25 H 25 H 31 H Blood Pressure 110/68 109/71 Pulse Oximetry 92 L 95 94 L Intake & Output 06/27/18 06/28/18 06/28/18 18:59 06:59 18:59 Intake Total 1065 / 1065 857.5 / 857.5 Output Total 450 / 450 275 / 275 Balance 615 / 615 582.5 / 582.5 Weight 55 kg Intake: IV 1065 / 1065 857.5 / 857.5 Cordarone Inj 450 MG In D5W Inj 250 / 250 250 / 250 241 ML @ 1 MG/MIN 33.33 mls/hr IV.CONT TITRATE PRN Rx#: [id number] D5W/1/2 NS Inj 1,000 ML @ 50 100 / 100 mls/hr IV.CONT .Q20H PABLO Rx#: [id number] KCl Inj 30 MEQ In D5W/Normal 515 / 515 Saline Inj 1,000 ML @ 70 mls/hr IV.CONT .[id number] PABLO Rx#: [id number] Cordarone Inj 150 MG In D5W Inj 100 / 100 97 ML @ 600 mls/hr IV.SIG ONCE ONE Rx#:[id number] Intralipid 20% Inj 250 ML @ 31. 250 / 250 25 mls/hr IV.SIG Q24H PABLO Rx#: [id number] Merrem Inj 1,000 MG In NS Inj 100 / 100 100 / 100 100 ML @ 200 mls/hr IV.SIG Q12H PABLO Rx#:[id number] Vancomycin Inj 750 MG In NS Inj 257.5 / 257.5 250 ML @ 250 mls/hr IV.SIG Q24H PABLO Rx#:[id number] Oral 0 / 0 Intake (Blood Product) Amt 0 / 0 Plt Pheresis S Leukoreduced 0 / 0 Unit [id number] Output: Urine Amount (Catheter) 450 / 450 275 / 275 Indwelling Urethral Catheter 450 / 450 275 / 275 Other: # Voids 3 # Incontinent Voids 2 Date of Last Bowel Movement 06/27/18 06/27/18 # Bowel Movements 2 # Incontinent Bowel Movements 2 Result Diagrams: 06/28/18 04:30 06/28/18 04:30 Objective Remarks: GENERAL: Patient is 72 lying in bed ,Critically ill, lethargic tachycardic SKIN: Warm and dry. HEAD: Normocephalic. EYES: No scleral icterus. No injection or drainage. Anemic NECK: Supple, trachea midline. No JVD or lymphadenopathy. CARDIOVASCULAR: Tachycardic rate and sinus rhythm without murmurs, gallops, or rubs. RESPIRATORY: Breath sounds equal bilaterally. No accessory muscle use. Mild coarse rhonchi and crackles GASTROINTESTINAL: Abdomen soft, non-tender, nondistended. MUSCULOSKELETAL: No cyanosis, or edema. Neuro: Lethargic, follows commands bilaterally but the right upper extremity and right lower extremity 2 out of 5 power compared to 4 out of 5 power on the left side. Assessment and Plan - Assessment and Plan Plan: NEURO: Right-sided hemiparesis ?New CVA Lethargy secondary to sepsis Dilaudid prn pain CT of the stat to rule acute ischemic or hemorrhagic stroke No stroke alert as the patient is not a candidate for TPA or invasive radiology procedures due to severe thrombocytopenia Monitor neuro status and avoid sedatives RESP: Respiratory insufficiency Pulmonary edema Continue with oxygen keep sats >92% Continue bronchodilators CXR: Mild pulm edema on 06/26/2018, repeat chest x-ray today Check ABG to rule out metabolic acidosis. Bicarb is 14 today CV: Hypotension secondary to volume depletion and sepsis. Atrial fibrillation with RVR s/p 2 L normal saline bolus and blood pressure normalized with MAP 70-77. Levophed if needed to maintain MAP>65mmHg On Amio drip for Afib with RVR- now HR controlled. DC IV fluid as the patient is on TPN and chest x-ray previously showing pulmonary edema GI: Diarrhea Abdominal pain Ileus Squamous cell carcinoma of the anus Moderate protein energy malnutrition NPO for bowel rest. Continue TPN CRS is following- Dr. Charles FEN/RENAL: GREY Monitor intake and output. Monitor electrolytes. Replace electrolytes as indicated per ICU electrolyte replacement protocol. Continue TPN Renal function slightly worsened ID: Pseudomonas bacteremia 06/25 Severe sepsis with probable GI source C Diff Continue abx- On [id number] Q12 to cover Pseudomonas. On Vancomycin 500 mg p.o. every 6 hours and follow-C. difficile positive by DNA amplification Blood culture growing Pseudomonas. C. difficile positive by DNA amplification Removed PICC 06/26. HEME: Squamous cell carcinoma anorectal Pancytopenia On Neupogen per oncology. SCC anus - s/p chemo completed 06/13. Radiation therapy on hold per Dr. Concepcion. Decadron 4 mg IV q6 hours . Monitor CBC, coags. Plt and blood product transfusion per heme ENDO: Acute hyperglycemia Monitor bedside glucose every 6 hours and initiate low-dose insulin sliding scale as indicated. On Synthroid 50 mcg daily PROPH: SCD for DVT prophylaxis. On Protonix 40mg Q12 for GI prophylaxis ACCESS: Remove right upper extremity PICC 06/26. L IJ CVL placed 06/26 Palliative care following Full code Patient is critically ill with pancytopenia and sepsis with multiorgan dysfunction. She is hypotensive and at high risk for further deterioration and . Respiratory status is deteriorating with worsening metabolic acidosis. New right hemiparesis needs stat CT of the head. Nose is poor CCT 40 mins Code Status: Full
[2018-06-28] MEDS: Pantoprazole Inj 40 MG Vial IV.PUSH SCH ×2 (09:25→21:53)
[2018-06-28] MEDS: Sodium Chloride 0.9% 2 ML Flush BID IV.FLUSH SCH ×2 (09:25→20:35)
[2018-06-28 09:56] LABS: ABG Base Excess -12.6 mmol/L (-2-2); ABG PCO2 19 mmHg (38-42); ABG PO2 85 mmHG (61-120)
[2018-06-28] MEDS ORDERED: Sodium Bicarbonate 8.4% Inj 50 MEQ/50 ML Syringe IV.PUSH ONE ×2 (10:00→11:30)
--- NOTE | 2018-06-28 10:11 | XR ---
EXAM DATE: 06/28/2018 9:34 AM EDT AGE/SEX: 72 years / Female INDICATIONS: Respiratory disease. CLINICAL DATA: This is the patient's subsequent encounter. Patient reports that signs and symptoms h ave been present for 2 weeks and indicates a pain score of Nonresponsive. MEDICAL/SURGICAL HISTORY: . Diverticulitis. Gastroesophageal reflux disease. Anemia. Cervical c ancer, Lung nodule, Hypothyroid, Mixed connective tissue disorder, Kidney stones. . Appendectomy. Hy sterectomy. Breast biopsy lumpectomy, sigmoid polypectomy. COMPARISON: . FINDINGS: The heart size is within normal. There is a left internal jugular vein catheter in place with the tip overlying the right atrium. The lungs demonstrate diffuse increased interstitial markings. There is further increased density at the bases being worse on the right. CONCLUSION: Diffuse increased interstitial markings likely related to diffuse processes such as edema. There some superimposed atelectasis or consolidation at the bases being worse on the right. Electronically signed by: Deniz Ca MD 06/28/2018 10:10 AM EDT
--- NOTE | 2018-06-28 11:27 | P.PNONC ---
Subjective Interval history: Afebrile Patient shakes her head "yes" when asked if she is having shortness of breath She is nonverbal on my exam No other family at bedside Objective Vital Signs/Intake & Output: Vital Signs 06/27/18 11:30 06/27/18 11:45 06/27/18 12:00 Temperature 97.5 F L Pulse Rate 88 83 85 Respiratory Rate 33 H 25 H 27 H Blood Pressure 94/54 L 92/56 L 98/58 L Pulse Oximetry 89 L 89 L 89 L 06/27/18 12:15 06/27/18 12:30 06/27/18 12:46 Temperature Pulse Rate 85 84 90 Respiratory Rate 33 H 28 H 31 H Blood Pressure 96/60 L 94/59 L 113/59 L Pulse Oximetry 90 L 90 L 90 L 06/27/18 13:00 06/27/18 13:15 06/27/18 13:22 Temperature Pulse Rate 85 87 Respiratory Rate 30 H 35 H Blood Pressure 103/62 97/64 L Pulse Oximetry 89 L 88 L 93 L 06/27/18 13:30 06/27/18 13:45 06/27/18 14:00 Temperature Pulse Rate 85 86 86 Respiratory Rate 32 H 33 H 34 H Blood Pressure 97/65 L 103/64 103/66 Pulse Oximetry 90 L 90 L 90 L 06/27/18 14:15 06/27/18 14:30 06/27/18 14:45 Temperature Pulse Rate 86 89 86 Respiratory Rate 32 H 35 H 33 H Blood Pressure 97/63 L 105/61 104/62 Pulse Oximetry 89 L 89 L 89 L 06/27/18 15:00 06/27/18 16:00 06/27/18 16:49 Temperature 98 F 98.5 F Pulse Rate 86 88 96 H Respiratory Rate 32 H 28 H 24 Blood Pressure 103/65 112/73 119/66 Pulse Oximetry 89 L 89 L 90 L 06/27/18 16:58 06/27/18 20:00 06/27/18 21:32 Temperature 97.6 F Pulse Rate 86 85 89 Respiratory Rate 23 25 H 17 Blood Pressure 97/63 L Pulse Oximetry 90 L 90 L 06/28/18 00:00 06/28/18 00:22 06/28/18 04:00 Temperature 97.6 F 97 F L Pulse Rate 92 H 128 H 129 H Respiratory Rate 26 H 20 22 Blood Pressure 98/65 L 103/71 Pulse Oximetry 91 L 91 L 06/28/18 04:21 06/28/18 08:00 06/28/18 08:53 Temperature 97.2 F L Pulse Rate 123 H 93 H 97 H Respiratory Rate 22 25 H 25 H Blood Pressure 110/68 Pulse Oximetry 92 L 95 06/28/18 09:00 Temperature Pulse Rate 96 H Respiratory Rate 31 H Blood Pressure 109/71 Pulse Oximetry 94 L Intake & Output 06/27/18 06/28/18 06/28/18 18:59 06:59 18:59 Intake Total 1065 / 1065 857.5 / 857.5 Output Total 450 / 450 275 / 275 Balance 615 / 615 582.5 / 582.5 Weight 121 lb 4.068 oz Intake: IV 1065 / 1065 857.5 / 857.5 Cordarone Inj 450 MG In D5W Inj 250 / 250 250 / 250 241 ML @ 1 MG/MIN 33.33 mls/hr IV.CONT TITRATE PRN Rx#: [id number] D5W/1/2 NS Inj 1,000 ML @ 50 100 / 100 mls/hr IV.CONT .Q20H FERN Rx#: [id number] KCl Inj 30 MEQ In D5W/Normal 515 / 515 Saline Inj 1,000 ML @ 70 mls/hr IV.CONT .[id number] FERN Rx#: [id number] Cordarone Inj 150 MG In D5W Inj 100 / 100 97 ML @ 600 mls/hr IV.SIG ONCE ONE Rx#:[id number] Intralipid 20% Inj 250 ML @ 31. 250 / 250 25 mls/hr IV.SIG Q24H FERN Rx#: [id number] Merrem Inj 1,000 MG In NS Inj 100 / 100 100 / 100 100 ML @ 200 mls/hr IV.SIG Q12H FERN Rx#:[id number] Vancomycin Inj 750 MG In NS Inj 257.5 / 257.5 250 ML @ 250 mls/hr IV.SIG Q24H FERN Rx#:[id number] Oral 0 / 0 Intake (Blood Product) Amt 0 / 0 Plt Pheresis S Leukoreduced 0 / 0 Unit [id number] Output: Urine Amount (Catheter) 450 / 450 275 / 275 Indwelling Urethral Catheter 450 / 450 275 / 275 Other: # Voids 3 # Incontinent Voids 2 Date of Last Bowel Movement 06/27/18 06/27/18 06/27/18 # Bowel Movements 2 # Incontinent Bowel Movements 2 Result Diagrams: 06/28/18 04:30 06/28/18 04:30 Laboratory Results: Laboratory Results - last 24 hr 06/25/18 06/25/18 06/27/18 12:21 15:15 10:45 WBC 4.1 RBC 4.94 Hgb 12.7 Hct 38.5 MCV 78.1 L MCH 25.7 L MCHC 32.9 RDW 18.5 H Plt Count 17 L* MPV 8.5 Prelim Diff (Auto) Slide review pending Neut % (Auto) 95.5 H Lymph % (Auto) 0.8 L [place] % (Auto) 3.7 Eos % (Auto) 0.0 Baso % (Auto) 0.0 Neut # (Auto) 3.9 Lymph # (Auto) 0.0 L [place] # (Auto) 0.2 Eos # (Auto) 0.0 Baso # (Auto) 0.0 WBC Differential Manual diff final Seg Neuts % (Manual) 51 Band Neuts % (Manual) 34 H Lymphocytes % (Manual) 3 L Monocytes % (Manual) 6 Metamyelocytes % (Man) 2 H Myelocytes % (Man) 4 H Abs Neuts (Manual) 3.7 Nucleated RBCs/100 WBC 3 H Differential Comment . Platelet Estimate Low L Platelet Morphology Enlarged H Ovalocytes 1+ H [place] Cells 2+ H PT INR Puncture Site Patient Temperature O2 Saturation ABG pH ABG pCO2 ABG pO2 ABG HCO3 ABG O2 Content ABG Base Excess ABG Methemoglobin Flako Test Hemoglobin Carboxyhemoglobin O2 Delivery Device Liter Flow Critical Value Sodium Potassium Chloride Carbon Dioxide Anion Gap BUN Creatinine Estimated GFR POC Glucose Random Glucose Lactic Acid Calcium Prot Corrected Calcium Phosphorus Magnesium Total Bilirubin AST ALT Alkaline Phosphatase Total Creatine Kinase Total Protein Albumin Triglycerides TSH Ur Collection Type Cancelled Urine Color Cancelled Urine Clarity Cancelled Urine pH Cancelled Ur Specific [place] Cancelled Urine Protein Cancelled Urine Glucose (UA) Cancelled Urine Ketones Cancelled Urine Occult Blood Cancelled Urine Nitrate Cancelled Urine Bilirubin Cancelled Urine Ictotest Cancelled Urine Urobilinogen Cancelled Ur Leukocyte Esterase Cancelled Urine RBC Cancelled Urine WBC Cancelled Urine WBC Clumps Cancelled Ur Squamous Epith Cells Cancelled Ur Transition Epith Cell Cancelled Ur Renal Epithelial Cell Cancelled Calcium Carbonate Cryst Cancelled Calcium Oxalate Crystal Cancelled Leucine Crystals Cancelled Cystine Crystals Cancelled Uric Acid Crystals Cancelled Triple Phos Crystals Cancelled Cholesterol Crystals Cancelled Tyrosine Crystals Cancelled Amorphous Sediment Cancelled Urine Bacteria Cancelled Hyaline Casts Cancelled Granular Casts Cancelled Fine Granular Casts Cancelled Coarse Granular Casts Cancelled Waxy Casts Cancelled RBC Casts Cancelled WBC Casts Cancelled Urine Mucus Cancelled Urine Trichomonas Cancelled Urine Yeast Cancelled Ur Yeast w [place]phae Cancelled Urine Sperm Cancelled Ur Oval Fat Bodies Cancelled Micro UA Comment Cancelled Ur Microscopic Review Cancelled Urine Culture Comments Cancelled Urine Eosinophils Urine Collection Time Cancelled Urine Comment Cancelled Stl C.difficile DNA Amp St C. diff Tox Epid 027 MTS Gel Crossmatch See Detail Bld Prod Order Comment 06/27/18 06/27/18 06/27/18 10:45 10:45 10:45 WBC RBC Hgb Hct MCV MCH MCHC RDW Plt Count MPV Prelim Diff (Auto) Neut % (Auto) Lymph % (Auto) [place] % (Auto) Eos % (Auto) Baso % (Auto) Neut # (Auto) Lymph # (Auto) [place] # (Auto) Eos # (Auto) Baso # (Auto) WBC Differential Seg Neuts % (Manual) Band Neuts % (Manual) Lymphocytes % (Manual) Monocytes % (Manual) Metamyelocytes % (Man) Myelocytes % (Man) Abs Neuts (Manual) Nucleated RBCs/100 WBC Differential Comment Platelet Estimate Platelet Morphology Ovalocytes [place] Cells PT 15.1 H INR 1.5 Puncture Site Patient Temperature O2 Saturation ABG pH ABG pCO2 ABG pO2 ABG HCO3 ABG O2 Content ABG Base Excess ABG Methemoglobin [place] Test Hemoglobin Carboxyhemoglobin O2 Delivery Device Liter Flow Critical Value Sodium 154 H Potassium 4.0 Chloride 126 H Carbon Dioxide 15.9 L Anion Gap 12 BUN 55 H Creatinine 1.13 H Estimated GFR 48 L POC Glucose Random Glucose 148 H Lactic Acid Calcium 6.7 L* Prot Corrected Calcium 8.0 L Phosphorus 1.1 L Magnesium 1.6 Total Bilirubin 1.0 AST 34 ALT 44 Alkaline Phosphatase 38 L Total Creatine Kinase 137 Cancelled Total Protein 4.6 L Albumin 1.4 L Triglycerides 132 TSH 0.984 Ur Collection Type Urine Color Urine Clarity Urine pH Ur Specific [place] Urine Protein Urine Glucose (UA) Urine Ketones Urine Occult Blood Urine Nitrate Urine Bilirubin Urine Ictotest Urine Urobilinogen Ur Leukocyte Esterase Urine RBC Urine WBC Urine WBC Clumps Ur Squamous Epith Cells Ur Transition Epith Cell Ur Renal Epithelial Cell Calcium Carbonate Cryst Calcium Oxalate Crystal Leucine Crystals Cystine Crystals Uric Acid Crystals Triple Phos Crystals Cholesterol Crystals Tyrosine Crystals Amorphous Sediment Urine Bacteria Hyaline Casts Granular Casts Fine Granular Casts Coarse Granular Casts Waxy Casts RBC Casts WBC Casts Urine Mucus Urine Trichomonas Urine Yeast Ur Yeast w Hyphae Urine Sperm Ur Oval Fat Bodies Micro UA Comment Ur Microscopic Review Urine Culture Comments Urine Eosinophils Urine Collection Time Urine Comment Stl C.difficile DNA Amp St C. diff Tox Epid 027 MTS Gel Crossmatch Bld Prod Order Comment 06/27/18 06/27/18 06/27/18 10:45 14:10 14:35 WBC RBC Hgb Hct MCV MCH MCHC RDW Plt Count MPV Prelim Diff (Auto) Neut % (Auto) Lymph % (Auto) [place] % (Auto) Eos % (Auto) Baso % (Auto) Neut # (Auto) Lymph # (Auto) [place] # (Auto) Eos # (Auto) Baso # (Auto) WBC Differential Seg Neuts % (Manual) Band Neuts % (Manual) Lymphocytes % (Manual) Monocytes % (Manual) Metamyelocytes % (Man) Myelocytes % (Man) Abs Neuts (Manual) Nucleated RBCs/100 WBC Differential Comment Platelet Estimate Platelet Morphology Ovalocytes [place] Cells PT INR Puncture Site Patient Temperature O2 Saturation ABG pH ABG pCO2 ABG pO2 ABG HCO3 ABG O2 Content ABG Base Excess ABG Methemoglobin Flako Test Hemoglobin Carboxyhemoglobin O2 Delivery Device Liter Flow Critical Value Sodium Potassium Chloride Carbon Dioxide Anion Gap BUN Creatinine Estimated GFR POC Glucose 107 Random Glucose Lactic Acid Calcium Prot Corrected Calcium Phosphorus Magnesium Total Bilirubin AST ALT Alkaline Phosphatase Total Creatine Kinase Total Protein Albumin Triglycerides TSH Cancelled Ur Collection Type Urine Color Urine Clarity Urine pH Ur Specific [place] Urine Protein Urine Glucose (UA) Urine Ketones Urine Occult Blood Urine Nitrate Urine Bilirubin Urine Ictotest Urine Urobilinogen Ur Leukocyte Esterase Urine RBC Urine WBC Urine WBC Clumps Ur Squamous Epith Cells Ur Transition Epith Cell Ur Renal Epithelial Cell Calcium Carbonate Cryst Calcium Oxalate Crystal Leucine Crystals Cystine Crystals Uric Acid Crystals Triple Phos Crystals Cholesterol Crystals Tyrosine Crystals Amorphous Sediment Urine Bacteria Hyaline Casts Granular Casts Fine Granular Casts Coarse Granular Casts Waxy Casts RBC Casts WBC Casts Urine Mucus Urine Trichomonas Urine Yeast Ur Yeast w Hyphae Urine Sperm Ur Oval Fat Bodies Micro UA Comment Ur Microscopic Review Urine Culture Comments Urine Eosinophils Urine Collection Time Urine Comment Stl C.difficile DNA Amp St C. diff Tox Epid 027 MTS Gel Crossmatch Bld Prod Order Comment 06/27/18 06/27/18 06/27/18 16:55 16:55 16:55 WBC RBC Hgb Hct MCV MCH MCHC RDW Plt Count MPV Prelim Diff (Auto) Neut % (Auto) Lymph % (Auto) [place] % (Auto) Eos % (Auto) Baso % (Auto) Neut # (Auto) Lymph # (Auto) [place] # (Auto) Eos # (Auto) Baso # (Auto) WBC Differential Seg Neuts % (Manual) Band Neuts % (Manual) Lymphocytes % (Manual) Monocytes % (Manual) Metamyelocytes % (Man) Myelocytes % (Man) Abs Neuts (Manual) Nucleated RBCs/100 WBC Differential Comment Platelet Estimate Platelet Morphology Ovalocytes [place] Cells PT INR Puncture Site Patient Temperature O2 Saturation ABG pH ABG pCO2 ABG pO2 ABG HCO3 ABG O2 Content ABG Base Excess ABG Methemoglobin Flako Test Hemoglobin Carboxyhemoglobin O2 Delivery Device Liter Flow Critical Value Sodium Potassium Chloride Carbon Dioxide Anion Gap BUN Creatinine Estimated GFR POC Glucose Random Glucose Lactic Acid Calcium Prot Corrected Calcium Phosphorus Magnesium Total Bilirubin AST ALT Alkaline Phosphatase Total Creatine Kinase Total Protein Albumin Triglycerides TSH Ur Collection Type Urine Color Yellow Urine Clarity Cloudy H Urine pH 5.0 Ur Specific [place] 1.015 Urine Protein 100 H Urine Glucose (UA) 50 Urine Ketones Negative Urine Occult Blood Large H Urine Nitrate Negative Urine Bilirubin Negative Urine Ictotest Urine Urobilinogen Less than 2 Ur Leukocyte Esterase Moderate H Urine RBC 35 H Urine WBC Urine WBC Clumps Few H Ur Squamous Epith Cells Ur Transition Epith Cell Ur Renal Epithelial Cell Calcium Carbonate Cryst Calcium Oxalate Crystal Leucine Crystals Cystine Crystals Uric Acid Crystals Triple Phos Crystals Cholesterol Crystals Tyrosine Crystals Amorphous Sediment Urine Bacteria Hyaline Casts Granular Casts 4 Fine Granular Casts Coarse Granular Casts Waxy Casts RBC Casts WBC Casts Urine Mucus Few H Urine Trichomonas Urine Yeast Ur Yeast w Hyphae Urine Sperm Ur Oval Fat Bodies Micro UA Comment Cath-culture ind Ur Microscopic Review Not Reportable Urine Culture Comments Cath-cult indicated Urine Eosinophils None seen Urine Collection Time Urine Comment Stl C.difficile DNA Amp Positive H St C. diff Tox Epid 027 Negative MTS Gel Crossmatch Bld Prod Order Comment 06/27/18 06/27/18 06/28/18 18:11 23:17 04:30 WBC RBC Hgb Hct MCV MCH MCHC RDW Plt Count MPV Prelim Diff (Auto) Neut % (Auto) Lymph % (Auto) [place] % (Auto) Eos % (Auto) Baso % (Auto) Neut # (Auto) Lymph # (Auto) [place] # (Auto) Eos # (Auto) Baso # (Auto) WBC Differential Seg Neuts % (Manual) Band Neuts % (Manual) Lymphocytes % (Manual) Monocytes % (Manual) Metamyelocytes % (Man) Myelocytes % (Man) Abs Neuts (Manual) Nucleated RBCs/100 WBC Differential Comment Platelet Estimate Platelet Morphology Ovalocytes [place] Cells PT INR Puncture Site Patient Temperature O2 Saturation ABG pH ABG pCO2 ABG pO2 ABG HCO3 ABG O2 Content ABG Base Excess ABG Methemoglobin [place] Test Hemoglobin Carboxyhemoglobin O2 Delivery Device Liter Flow Critical Value Sodium 145 Potassium 3.2 L D Chloride 118 H D Carbon Dioxide 13.9 L Anion Gap 13 BUN 60 H Creatinine 1.36 H Estimated GFR 38 L POC Glucose 107 157 H Random Glucose 341 H D Lactic Acid Calcium 6.8 L* Prot Corrected Calcium 7.9 L Phosphorus Magnesium 1.6 Total Bilirubin 1.0 AST 30 ALT 36 Alkaline Phosphatase 52 Total Creatine Kinase Total Protein 5.0 L Albumin 1.4 L Triglycerides TSH Ur Collection Type Urine Color Urine Clarity Urine pH Ur Specific [place] Urine Protein Urine Glucose (UA) Urine Ketones Urine Occult Blood Urine Nitrate Urine Bilirubin Urine Ictotest Urine Urobilinogen Ur Leukocyte Esterase Urine RBC Urine WBC Urine WBC Clumps Ur Squamous Epith Cells Ur Transition Epith Cell Ur Renal Epithelial Cell Calcium Carbonate Cryst Calcium Oxalate Crystal Leucine Crystals Cystine Crystals Uric Acid Crystals Triple Phos Crystals Cholesterol Crystals Tyrosine Crystals Amorphous Sediment Urine Bacteria Hyaline Casts Granular Casts Fine Granular Casts Coarse Granular Casts Waxy Casts RBC Casts WBC Casts Urine Mucus Urine Trichomonas Urine Yeast Ur Yeast w Hyphae Urine Sperm Ur Oval Fat Bodies Micro UA Comment Ur Microscopic Review Urine Culture Comments Urine Eosinophils Urine Collection Time Urine Comment Stl C.difficile DNA Amp St C. diff Tox Epid 027 MTS Gel Crossmatch Bld Prod Order Comment 06/28/18 06/28/18 06/28/18 04:30 09:35 09:45 WBC 7.8 D RBC 5.01 Hgb 13.7 Hct 39.2 MCV 78.2 L MCH 27.3 MCHC 35.0 RDW 19.4 H Plt Count 35 L D MPV 8.7 Prelim Diff (Auto) Neut % (Auto) Lymph % (Auto) [place] % (Auto) Eos % (Auto) Baso % (Auto) Neut # (Auto) Lymph # (Auto) [place] # (Auto) Eos # (Auto) Baso # (Auto) WBC Differential Seg Neuts % (Manual) Band Neuts % (Manual) Lymphocytes % (Manual) Monocytes % (Manual) Metamyelocytes % (Man) Myelocytes % (Man) Abs Neuts (Manual) Nucleated RBCs/100 WBC Differential Comment Platelet Estimate Platelet Morphology Ovalocytes [place] Cells PT INR Puncture Site Right radial Patient Temperature 98.6 O2 Saturation 94 ABG pH 7.40 ABG pCO2 19 L* ABG pO2 85 ABG HCO3 11 L* ABG O2 Content 17.1 ABG Base Excess -12.6 L ABG Methemoglobin 1.8 [place] Test Present Hemoglobin 12.9 Carboxyhemoglobin 0.6 O2 Delivery Device Nasal cannula Liter Flow 4.00 Critical Value Yes Sodium Potassium Chloride Carbon Dioxide Anion Gap BUN Creatinine Estimated GFR POC Glucose Random Glucose Lactic Acid 3.1 H Calcium Prot Corrected Calcium Phosphorus Magnesium Total Bilirubin AST ALT Alkaline Phosphatase Total Creatine Kinase Total Protein Albumin Triglycerides TSH Ur Collection Type Urine Color Urine Clarity Urine pH Ur Specific [place] Urine Protein Urine Glucose (UA) Urine Ketones Urine Occult Blood Urine Nitrate Urine Bilirubin Urine Ictotest Urine Urobilinogen Ur Leukocyte Esterase Urine RBC Urine WBC Urine WBC Clumps Ur Squamous Epith Cells Ur Transition Epith Cell Ur Renal Epithelial Cell Calcium Carbonate Cryst Calcium Oxalate Crystal Leucine Crystals Cystine Crystals Uric Acid Crystals Triple Phos Crystals Cholesterol Crystals Tyrosine Crystals Amorphous Sediment Urine Bacteria Hyaline Casts Granular Casts Fine Granular Casts Coarse Granular Casts Waxy Casts RBC Casts WBC Casts Urine Mucus Urine Trichomonas Urine Yeast Ur Yeast w Hyphae Urine Sperm Ur Oval Fat Bodies Micro UA Comment Ur Microscopic Review Urine Culture Comments Urine Eosinophils Urine Collection Time Urine Comment Stl C.difficile DNA Amp St C. diff Tox Epid 027 MTS Gel Crossmatch Bld Prod Order Comment Culture Results: Microbiology 06/27/18 10:50 Aerobic Blood Culture - Preliminary Blood - Peripheral No growth in 1 day Anaerobic Blood Culture - Preliminary No growth in 1 day 06/27/18 10:45 Aerobic Blood Culture - Preliminary Blood - Peripheral No growth in 1 day Anaerobic Blood Culture - Preliminary No growth in 1 day 06/25/18 12:10 Aerobic Blood Culture - Preliminary Blood - Peripheral Anaerobic Blood Culture - Final QNS - See aerobic report. 06/25/18 12:25 Aerobic Blood Culture - Final Blood - Peripheral Pseudomonas aeruginosa Anaerobic Blood Culture - Final QNS - See aerobic report. Imaging Studies: Impressions Chest X-Ray 06/28/18 09:34 CONCLUSION: Diffuse increased interstitial markings likely related to diffuse processes such as edema. There some superimposed atelectasis or consolidation at the bases being worse on the right. Medications: Active Medications Generic Name Dose Route Start Last Admin Trade Name Freq PRN Reason Stop Dose Admin Albuterol 1 ampul 06/27/18 12:00 06/28/18 08:52 Duoneb Neb (Fern) NEB 1 ampul Q4HR NEB FERN Administration Filgrastim 480 mcg 06/25/18 22:00 06/27/18 15:30 Neupogen Inj SQ 480 mcg DAILY@1400 FERN Administration Hydromorphone HCl 0.5 mg 06/26/18 14:00 06/28/18 05:59 Dilaudid Pf Inj IV.PUSH 0.5 mg Q3H PRN Administration PAIN 3-10 Meropenem 1,000 mg/ Sodium 100 mls @ 200 mls/hr 06/26/18 21:00 06/28/18 09:24 Chloride IV.SIG 200 mls/hr Q12H FERN Administration Amiodarone HCl 450 mg/ 250 mls @ 33.33 mls/hr 06/27/18 04:37 06/28/18 04:02 Dextrose IV.CONT 0.5 mg/min TITRATE PRN 16.66 mls/hr Per Protocol Administration Protocol 1 MG/MIN Multivitamins 10 ml/ Folic 2,010.2 mls @ 42.214 mls/hr 06/27/18 20:00 20:57 Acid 1 mg/ Amino Acids/ IV.SIG 42.21 mls/hr Electrolytes Q24H FERN Administration Fat Emulsion Intravenous 250 mls @ 31.25 mls/hr 06/27/18 20:00 06/28/18 05:16 Intralipid 20% Inj IV.SIG Infused Q24H FERN Infusion Insulin Aspart 0 unit 06/27/18 12:00 06/28/18 05:52 Novolog Insulin Correctional Sugar Inj SQ 7 unit Q6HR FERN Administration Protocol Levothyroxine Sodium 50 mcg 06/26/18 06:00 06/28/18 05:59 Synthroid PO Not Given DAILY@0600 FERN Ondansetron HCl 4 mg 06/26/18 04:31 06/27/18 14:12 Zofran Inj IV.PUSH 4 mg Q6H PRN Administration NAUSEA OR VOMITING Pantoprazole Sodium 40 mg 06/25/18 16:00 06/28/18 09:25 Protonix Inj IV.PUSH 40 mg Q12HR FERN Administration Sodium Chloride 2 ml 06/27/18 21:00 06/28/18 09:25 Ns Flush IV.FLUSH 2 ml BID FERN Administration Sodium Chloride 2 ml 06/27/18 10:30 06/28/18 06:02 Ns Flush IV.FLUSH 2 ml PRN PRN Administration FLUSH AFTER USING IV ACCESS Vancomycin HCl 125 mg 06/27/18 22:00 06/28/18 10:03 Vancomycin Po PO Not Given QID [facility] Objective Remarks: GENERAL: Miserable appearing older female resting in bed. SKIN: Warm and dry. Right upper extremity PICC line, no erythema, drsg dry/ intact. HEAD: Normocephalic. EYES: No scleral icterus. No injection or drainage. NECK: Supple, trachea midline. CARDIOVASCULAR: Tachycardic. RESPIRATORY: Tachypneic. GASTROINTESTINAL: Abdomen soft, tender, nondistended. EXTREMITIES: No edema. MUSCULOSKELETAL: Generalized weakness NEUROLOGICAL: Lethargic. Does not appear to be moving right side much Assessment/Plan - Plan Ms. 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 She had received 5 days of chemotherapy, completed on 06/13/2018. She is currently receiving radiation therapy which started on she was admitted for acute renal failure related to dehydration, intractable diarrhea from radiation chemotherapy. Plan: 1. Patient remains critically ill. 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 2. She continues on Neupogen for neutropenic sepsis. Will stop this if differential comes back with ANC greater than 5000 today. 3. She received platelets yesterday. No obvious bleeding from lines. 4. She is currently on meropenem IV and oral vancomycin for C. difficile. ID following. 5. Condition very poor at this time. Continue maximum supportive care. - Attending Statement The exam, history, and the medical decision-making described in the above note were completed with the assistance of the mid-level provider. I reviewed and agree with the findings presented. I attest that I had a [id number] encounter with the patient on the same day, and personally performed and documented my assessment and findings in the medical record. 72 yoF with SCC of the anorectum being treated with concurrent chemotherapy and radiation therapy prior to hospital admission admitted with sepsis due to Cdiff , pseudomonas bacteremia. She was neutropenic and is s/p G-CSF with improvement in counts. Currently with IV merrem and PO vancomycin. She is on TPN. Respiratory, mental status decline. CT brain pending. Poor prognosis.
[2018-06-28 11:39] LABS: Lymphocytes 5 % (9-44); Metamyelocytes 7 % (0-1); Monocytes 6 % (0-8)
[2018-06-28 11:43] LABS: Toxic Granulation 2+; Toxic Vacuolation Present
[2018-06-28 11:44] LABS: Dohle Bodies Present
[2018-06-28 11:47] LABS: Burr Cells 2+; Platelet Morphology Normal (Normal)
--- NOTE | 2018-06-28 12:10 | CT ---
EXAM DATE: 06/28/2018 11:23 AM EDT AGE/SEX: 72 years / Female INDICATIONS: Altered mental status. CLINICAL DATA: This is the patient's initial encounter. Patient reports that signs and symptoms have been present for 1 day and indicates a pain score of Nonresponsive. MEDICAL/SURGICAL HISTORY: Carcinoma, cervical. Carcinoma, rectal. Gastroesophageal reflux disease . Hysterectomy. RADIATION DOSE: 43.91 CTDI (mGy) COMPARISON: . TECHNIQUE: CT of the head without contrast. Using automated exposure control and adjustment of the mA and/or kV according to patient size, radiation dose was kept as low as reasonably achievable to ob tain optimal diagnostic quality images. DICOM format image data is available electronically for revi ew and comparison. FINDINGS: Cerebrum: The ventricles are normal for age. No evidence of midline shift, mass lesion, hemorrhage or acute infarction. No extraaxial fluid collections are seen. Posterior Fossa: The cerebellum and brainstem are intact. The 4th ventricle is midline. The cerebe llopontine angle is unremarkable. Extracranial: The visualized portion of the orbits is intact. Skull: The calvaria is intact. No evidence of skull fracture. CONCLUSION: Negative noncontrast head CT. . Electronically signed by: Deniz Ca MD 06/28/2018 12:09 PM EDT
--- NOTE | 2018-06-28 12:24 | P.PN ---
Subjective Interval history: Anal cancer with metastases, chemotoxicity less responsive, right sided weakness Physical Exam Vital signs: Vital Signs 06/27/18 12:30 06/27/18 12:46 06/27/18 13:00 Temperature Pulse Rate 84 90 85 Respiratory Rate 28 H 31 H 30 H Blood Pressure 94/59 L 113/59 L 103/62 Pulse Oximetry 90 L 90 L 89 L 06/27/18 13:15 06/27/18 13:22 06/27/18 13:30 Temperature Pulse Rate 87 85 Respiratory Rate 35 H 32 H Blood Pressure 97/64 L 97/65 L Pulse Oximetry 88 L 93 L 90 L 06/27/18 13:45 06/27/18 14:00 06/27/18 14:15 Temperature Pulse Rate 86 86 86 Respiratory Rate 33 H 34 H 32 H Blood Pressure 103/64 103/66 97/63 L Pulse Oximetry 90 L 90 L 89 L 06/27/18 14:30 06/27/18 14:45 06/27/18 15:00 Temperature Pulse Rate 89 86 86 Respiratory Rate 35 H 33 H 32 H Blood Pressure 105/61 104/62 103/65 Pulse Oximetry 89 L 89 L 89 L 06/27/18 16:00 06/27/18 16:49 06/27/18 16:58 Temperature 98 F 98.5 F Pulse Rate 88 96 H 86 Respiratory Rate 28 H 24 23 Blood Pressure 112/73 119/66 Pulse Oximetry 89 L 90 L 06/27/18 20:00 06/27/18 21:32 06/28/18 00:00 Temperature 97.6 F 97.6 F Pulse Rate 85 89 92 H Respiratory Rate 25 H 17 26 H Blood Pressure 97/63 L 98/65 L Pulse Oximetry 90 L 90 L 91 L 06/28/18 00:22 06/28/18 04:00 06/28/18 04:21 Temperature 97 F L Pulse Rate 128 H 129 H 123 H Respiratory Rate 20 22 22 Blood Pressure 103/71 Pulse Oximetry 91 L 06/28/18 08:00 06/28/18 08:53 06/28/18 09:00 Temperature 97.2 F L Pulse Rate 93 H 97 H 96 H Respiratory Rate 25 H 25 H 31 H Blood Pressure 110/68 109/71 Pulse Oximetry 92 L 95 94 L Intake & Output 06/27/18 06/28/18 06/28/18 18:59 06:59 18:59 Intake Total 1065 / 1065 857.5 / 857.5 Output Total 450 / 450 275 / 275 Balance 615 / 615 582.5 / 582.5 Weight 55 kg Intake: IV 1065 / 1065 857.5 / 857.5 Cordarone Inj 450 MG In D5W Inj 250 / 250 250 / 250 241 ML @ 1 MG/MIN 33.33 mls/hr IV.CONT TITRATE PRN Rx#: [id number] D5W/1/2 NS Inj 1,000 ML @ 50 100 / 100 mls/hr IV.CONT .Q20H PABLO Rx#: [id number] KCl Inj 30 MEQ In D5W/Normal 515 / 515 Saline Inj 1,000 ML @ 70 mls/hr IV.CONT .[id number] PABLO Rx#: [id number] Cordarone Inj 150 MG In D5W Inj 100 / 100 97 ML @ 600 mls/hr IV.SIG ONCE ONE Rx#:[id number] Intralipid 20% Inj 250 ML @ 31. 250 / 250 25 mls/hr IV.SIG Q24H PABLO Rx#: [id number] Merrem Inj 1,000 MG In NS Inj 100 / 100 100 / 100 100 ML @ 200 mls/hr IV.SIG Q12H PABLO Rx#:[id number] Vancomycin Inj 750 MG In NS Inj 257.5 / 257.5 250 ML @ 250 mls/hr IV.SIG Q24H PABLO Rx#:[id number] Oral 0 / 0 Intake (Blood Product) Amt 0 / 0 Plt Pheresis S Leukoreduced 0 / 0 Unit [id number] Output: Urine Amount (Catheter) 450 / 450 275 / 275 Indwelling Urethral Catheter 450 / 450 275 / 275 Other: # Voids 3 # Incontinent Voids 2 Date of Last Bowel Movement 06/27/18 06/27/18 06/27/18 # Bowel Movements 2 # Incontinent Bowel Movements 2 - Routine Abdominal Exam Comments: Abdomen soft, mild distension, mild tenderness - Urinary Catheter Management Indwelling Urethral Catheter Cath placed during this visit: yes Reason for continuing: Severe pressure ulcer/wound Insertion date: 06/27/18 Insertion time: 11:19 Results - Labs CBC & Chem 7: 06/28/18 04:30 06/28/18 04:30 Laboratory Results - last 24 hr 10/03/18 10/03/18 10/05/18 12:21 15:15 10:45 WBC 4.1 RBC 4.94 Hgb 12.7 Hct 38.5 MCV 78.1 L MCH 25.7 L MCHC 32.9 RDW 18.5 H Plt Count 17 L* MPV 8.5 Prelim Diff (Auto) Slide review pending Neut % (Auto) 95.5 H Lymph % (Auto) 0.8 L [place] % (Auto) 3.7 Eos % (Auto) 0.0 Baso % (Auto) 0.0 Neut # (Auto) 3.9 Lymph # (Auto) 0.0 L [place] # (Auto) 0.2 Eos # (Auto) 0.0 Baso # (Auto) 0.0 WBC Differential Manual diff final Seg Neuts % (Manual) 51 Band Neuts % (Manual) 34 H Lymphocytes % (Manual) 3 L Monocytes % (Manual) 6 Metamyelocytes % (Man) 2 H Myelocytes % (Man) 4 H Abs Neuts (Manual) 3.7 Nucleated RBCs/100 WBC 3 H Differential Comment . Toxic Granulation Toxic Vacuolation Dohle Bodies Platelet Estimate Low L Platelet Morphology Enlarged H Ovalocytes 1+ H [place] Cells 2+ H Puncture Site Patient Temperature O2 Saturation ABG pH ABG pCO2 ABG pO2 ABG HCO3 ABG O2 Content ABG Base Excess ABG Methemoglobin Flako Test Hemoglobin Carboxyhemoglobin O2 Delivery Device Liter Flow Critical Value Sodium Potassium Chloride Carbon Dioxide Anion Gap BUN Creatinine Estimated GFR POC Glucose Random Glucose Lactic Acid Calcium Prot Corrected Calcium Magnesium Total Bilirubin AST ALT Alkaline Phosphatase Total Protein Albumin Ur Collection Type Cancelled Urine Color Cancelled Urine Clarity Cancelled Urine pH Cancelled Ur Specific [place] Cancelled Urine Protein Cancelled Urine Glucose (UA) Cancelled Urine Ketones Cancelled Urine Occult Blood Cancelled Urine Nitrate Cancelled Urine Bilirubin Cancelled Urine Ictotest Cancelled Urine Urobilinogen Cancelled Ur Leukocyte Esterase Cancelled Urine RBC Cancelled Urine WBC Cancelled Urine WBC Clumps Cancelled Ur Squamous Epith Cells Cancelled Ur Transition Epith Cell Cancelled Ur Renal Epithelial Cell Cancelled Calcium Carbonate Cryst Cancelled Calcium Oxalate Crystal Cancelled Leucine Crystals Cancelled Cystine Crystals Cancelled Uric Acid Crystals Cancelled Triple Phos Crystals Cancelled Cholesterol Crystals Cancelled Tyrosine Crystals Cancelled Amorphous Sediment Cancelled Urine Bacteria Cancelled Hyaline Casts Cancelled Granular Casts Cancelled Fine Granular Casts Cancelled Coarse Granular Casts Cancelled Waxy Casts Cancelled RBC Casts Cancelled WBC Casts Cancelled Urine Mucus Cancelled Urine Trichomonas Cancelled Urine Yeast Cancelled Ur Yeast w Hyphae Cancelled Urine Sperm Cancelled Ur Oval Fat Bodies Cancelled Micro UA Comment Cancelled Ur Microscopic Review Cancelled Urine Culture Comments Cancelled Urine Eosinophils Urine Collection Time Cancelled Urine Comment Cancelled Stool C.difficile Ag Stool C.difficile Toxin Stl C.difficile DNA Amp St C. diff Tox Epid 027 MTS Gel Crossmatch See Detail Bld Prod Order Comment 06/27/18 06/27/18 06/27/18 14:10 14:35 16:55 WBC RBC Hgb Hct MCV MCH MCHC RDW Plt Count MPV Prelim Diff (Auto) Neut % (Auto) Lymph % (Auto) [place] % (Auto) Eos % (Auto) Baso % (Auto) Neut # (Auto) Lymph # (Auto) [place] # (Auto) Eos # (Auto) Baso # (Auto) WBC Differential Seg Neuts % (Manual) Band Neuts % (Manual) Lymphocytes % (Manual) Monocytes % (Manual) Metamyelocytes % (Man) Myelocytes % (Man) Abs Neuts (Manual) Nucleated RBCs/100 WBC Differential Comment Toxic Granulation Toxic Vacuolation Dohle Bodies Platelet Estimate Platelet Morphology Ovalocytes [place] Cells Puncture Site Patient Temperature O2 Saturation ABG pH ABG pCO2 ABG pO2 ABG HCO3 ABG O2 Content ABG Base Excess ABG Methemoglobin Flako Test Hemoglobin Carboxyhemoglobin O2 Delivery Device Liter Flow Critical Value Sodium Potassium Chloride Carbon Dioxide Anion Gap BUN Creatinine Estimated GFR POC Glucose 107 Random Glucose Lactic Acid Calcium Prot Corrected Calcium Magnesium Total Bilirubin AST ALT Alkaline Phosphatase Total Protein Albumin Ur Collection Type Urine Color Yellow Urine Clarity Cloudy H Urine pH 5.0 Ur Specific [place] 1.015 Urine Protein 100 H Urine Glucose (UA) 50 Urine Ketones Negative Urine Occult Blood Large H Urine Nitrate Negative Urine Bilirubin Negative Urine Ictotest Urine Urobilinogen Less than 2 Ur Leukocyte Esterase Moderate H Urine RBC 35 H Urine WBC Urine WBC Clumps Few H Ur Squamous Epith Cells Ur Transition Epith Cell Ur Renal Epithelial Cell Calcium Carbonate Cryst Calcium Oxalate Crystal Leucine Crystals Cystine Crystals Uric Acid Crystals Triple Phos Crystals Cholesterol Crystals Tyrosine Crystals Amorphous Sediment Urine Bacteria Hyaline Casts Granular Casts 4 Fine Granular Casts Coarse Granular Casts Waxy Casts RBC Casts WBC Casts Urine Mucus Few H Urine Trichomonas Urine Yeast Ur Yeast w Hyphae Urine Sperm Ur Oval Fat Bodies Micro UA Comment Cath-culture ind Ur Microscopic Review Not Reportable Urine Culture Comments Cath-cult indicated Urine Eosinophils Urine Collection Time Urine Comment Stool C.difficile Ag Stool C.difficile Toxin Stl C.difficile DNA Amp St C. diff Tox Epid 027 MTS Gel Crossmatch Bld Prod Order Comment 06/27/18 06/27/18 06/27/18 16:55 16:55 18:11 WBC RBC Hgb Hct MCV MCH MCHC RDW Plt Count MPV Prelim Diff (Auto) Neut % (Auto) Lymph % (Auto) [place] % (Auto) Eos % (Auto) Baso % (Auto) Neut # (Auto) Lymph # (Auto) [place] # (Auto) Eos # (Auto) Baso # (Auto) WBC Differential Seg Neuts % (Manual) Band Neuts % (Manual) Lymphocytes % (Manual) Monocytes % (Manual) Metamyelocytes % (Man) Myelocytes % (Man) Abs Neuts (Manual) Nucleated RBCs/100 WBC Differential Comment Toxic Granulation Toxic Vacuolation Dohle Bodies Platelet Estimate Platelet Morphology Ovalocytes [place] Cells Puncture Site Patient Temperature O2 Saturation ABG pH ABG pCO2 ABG pO2 ABG HCO3 ABG O2 Content ABG Base Excess ABG Methemoglobin Flako Test Hemoglobin Carboxyhemoglobin O2 Delivery Device Liter Flow Critical Value Sodium Potassium Chloride Carbon Dioxide Anion Gap BUN Creatinine Estimated GFR POC Glucose 107 Random Glucose Lactic Acid Calcium Prot Corrected Calcium Magnesium Total Bilirubin AST ALT Alkaline Phosphatase Total Protein Albumin Ur Collection Type Urine Color Urine Clarity Urine pH Ur Specific [place] Urine Protein Urine Glucose (UA) Urine Ketones Urine Occult Blood Urine Nitrate Urine Bilirubin Urine Ictotest Urine Urobilinogen Ur Leukocyte Esterase Urine RBC Urine WBC Urine WBC Clumps Ur Squamous Epith Cells Ur Transition Epith Cell Ur Renal Epithelial Cell Calcium Carbonate Cryst Calcium Oxalate Crystal Leucine Crystals Cystine Crystals Uric Acid Crystals Triple Phos Crystals Cholesterol Crystals Tyrosine Crystals Amorphous Sediment Urine Bacteria Hyaline Casts Granular Casts Fine Granular Casts Coarse Granular Casts Waxy Casts RBC Casts WBC Casts Urine Mucus Urine Trichomonas Urine Yeast Ur Yeast w Hyphae Urine Sperm Ur Oval Fat Bodies Micro UA Comment Ur Microscopic Review Urine Culture Comments Urine Eosinophils None seen Urine Collection Time Urine Comment Stool C.difficile Ag Positive H Stool C.difficile Toxin Negative Stl C.difficile DNA Amp Positive H St C. diff Tox Epid 027 Negative MTS Gel Crossmatch Bld Prod Order Comment 06/27/18 06/28/18 06/28/18 23:17 04:30 04:30 WBC 7.8 D RBC 5.01 Hgb 13.7 Hct 39.2 MCV 78.2 L MCH 27.3 MCHC 35.0 RDW 19.4 H Plt Count 35 L D MPV 8.7 Prelim Diff (Auto) Neut % (Auto) Lymph % (Auto) [place] % (Auto) Eos % (Auto) Baso % (Auto) Neut # (Auto) Lymph # (Auto) [place] # (Auto) Eos # (Auto) Baso # (Auto) WBC Differential Manual diff final Seg Neuts % (Manual) 75 H Band Neuts % (Manual) 7 H Lymphocytes % (Manual) 5 L Monocytes % (Manual) 6 Metamyelocytes % (Man) 7 H Myelocytes % (Man) Abs Neuts (Manual) 6.9 Nucleated RBCs/100 WBC Differential Comment . Toxic Granulation 2+ H Toxic Vacuolation Present H Dohle Bodies Present H Platelet Estimate Low L Platelet Morphology Normal Ovalocytes [place] Cells 2+ H Puncture Site Patient Temperature O2 Saturation ABG pH ABG pCO2 ABG pO2 ABG HCO3 ABG O2 Content ABG Base Excess ABG Methemoglobin Flako Test Hemoglobin Carboxyhemoglobin O2 Delivery Device Liter Flow Critical Value Sodium 145 Potassium 3.2 L D Chloride 118 H D Carbon Dioxide 13.9 L Anion Gap 13 BUN 60 H Creatinine 1.36 H Estimated GFR 38 L POC Glucose 157 H Random Glucose 341 H D Lactic Acid Calcium 6.8 L* Prot Corrected Calcium 7.9 L Magnesium 1.6 Total Bilirubin 1.0 AST 30 ALT 36 Alkaline Phosphatase 52 Total Protein 5.0 L Albumin 1.4 L Ur Collection Type Urine Color Urine Clarity Urine pH Ur Specific [place] Urine Protein Urine Glucose (UA) Urine Ketones Urine Occult Blood Urine Nitrate Urine Bilirubin Urine Ictotest Urine Urobilinogen Ur Leukocyte Esterase Urine RBC Urine WBC Urine WBC Clumps Ur Squamous Epith Cells Ur Transition Epith Cell Ur Renal Epithelial Cell Calcium Carbonate Cryst Calcium Oxalate Crystal Leucine Crystals Cystine Crystals Uric Acid Crystals Triple Phos Crystals Cholesterol Crystals Tyrosine Crystals Amorphous Sediment Urine Bacteria Hyaline Casts Granular Casts Fine Granular Casts Coarse Granular Casts Waxy Casts RBC Casts WBC Casts Urine Mucus Urine Trichomonas Urine Yeast Ur Yeast w Hyphae Urine Sperm Ur Oval Fat Bodies Micro UA Comment Ur Microscopic Review Urine Culture Comments Urine Eosinophils Urine Collection Time Urine Comment Stool C.difficile Ag Stool C.difficile Toxin Stl C.difficile DNA Amp St C. diff Tox Epid 027 MTS Gel Crossmatch Bld Prod Order Comment 06/28/18 06/28/18 09:35 09:45 WBC RBC Hgb Hct MCV MCH MCHC RDW Plt Count MPV Prelim Diff (Auto) Neut % (Auto) Lymph % (Auto) [place] % (Auto) Eos % (Auto) Baso % (Auto) Neut # (Auto) Lymph # (Auto) [place] # (Auto) Eos # (Auto) Baso # (Auto) WBC Differential Seg Neuts % (Manual) Band Neuts % (Manual) Lymphocytes % (Manual) Monocytes % (Manual) Metamyelocytes % (Man) Myelocytes % (Man) Abs Neuts (Manual) Nucleated RBCs/100 WBC Differential Comment Toxic Granulation Toxic Vacuolation Dohle Bodies Platelet Estimate Platelet Morphology Ovalocytes [place] Cells Puncture Site Right radial Patient Temperature 98.6 O2 Saturation 94 ABG pH 7.40 ABG pCO2 19 L* ABG pO2 85 ABG HCO3 11 L* ABG O2 Content 17.1 ABG Base Excess -12.6 L ABG Methemoglobin 1.8 [place] Test Present Hemoglobin 12.9 Carboxyhemoglobin 0.6 O2 Delivery Device Nasal cannula Liter Flow 4.00 Critical Value Yes Sodium Potassium Chloride Carbon Dioxide Anion Gap BUN Creatinine Estimated GFR POC Glucose Random Glucose Lactic Acid 3.1 H Calcium Prot Corrected Calcium Magnesium Total Bilirubin AST ALT Alkaline Phosphatase Total Protein Albumin Ur Collection Type Urine Color Urine Clarity Urine pH Ur Specific [place] Urine Protein Urine Glucose (UA) Urine Ketones Urine Occult Blood Urine Nitrate Urine Bilirubin Urine Ictotest Urine Urobilinogen Ur Leukocyte Esterase Urine RBC Urine WBC Urine WBC Clumps Ur Squamous Epith Cells Ur Transition Epith Cell Ur Renal Epithelial Cell Calcium Carbonate Cryst Calcium Oxalate Crystal Leucine Crystals Cystine Crystals Uric Acid Crystals Triple Phos Crystals Cholesterol Crystals Tyrosine Crystals Amorphous Sediment Urine Bacteria Hyaline Casts Granular Casts Fine Granular Casts Coarse Granular Casts Waxy Casts RBC Casts WBC Casts Urine Mucus Urine Trichomonas Urine Yeast Ur Yeast w Hyphae Urine Sperm Ur Oval Fat Bodies Micro UA Comment Ur Microscopic Review Urine Culture Comments Urine Eosinophils Urine Collection Time Urine Comment Stool C.difficile Ag Stool C.difficile Toxin Stl C.difficile DNA Amp St C. diff Tox Epid 027 MTS Gel Crossmatch Bld Prod Order Comment Microbiology 10/05/18 10:50 Blood - Peripheral Aerobic Blood Culture - Preliminary No growth in 1 day 06/27/18 10:50 Blood - Peripheral Anaerobic Blood Culture - Preliminary No growth in 1 day 06/27/18 10:45 Blood - Peripheral Aerobic Blood Culture - Preliminary No growth in 1 day 06/27/18 10:45 Blood - Peripheral Anaerobic Blood Culture - Preliminary No growth in 1 day 06/25/18 12:10 Blood - Peripheral Aerobic Blood Culture - Preliminary 06/25/18 12:10 Blood - Peripheral Anaerobic Blood Culture - Final QNS - See aerobic report. 06/25/18 12:25 Blood - Peripheral Aerobic Blood Culture - Final Pseudomonas aeruginosa 06/25/18 12:25 Blood - Peripheral Anaerobic Blood Culture - Final QNS - See aerobic report. - Imaging Impressions Head CT 06/28/18 00:00 CONCLUSION: Negative noncontrast head CT. . Chest X-Ray 06/28/18 09:34 CONCLUSION: Diffuse increased interstitial markings likely related to diffuse processes such as edema. There some superimposed atelectasis or consolidation at the bases being worse on the right. Assessment and Plan - Assessment (1) Squamous cell carcinoma of anal canal Code(s): C21.1 - Malignant neoplasm of anal canal Status: Acute (2) Diarrhea Code(s): R19.7 - Diarrhea, unspecified Status: Acute Plan: Now postiive for c. diff New right sided weakness, CT pending - could be mets or CVA supportive care ? code status
--- NOTE | 2018-06-28 12:27 | CT ---
EXAM DATE: 06/28/2018 11:23 AM EDT AGE/SEX: 72 years / Female INDICATIONS: Shortness of breath. CLINICAL DATA: This is the patient's initial encounter. Patient reports that signs and symptoms have been present for 1 day and indicates a pain score of Nonresponsive. MEDICAL/SURGICAL HISTORY: Carcinoma, cervical. Carcinoma, rectal. Gastroesophageal reflux disease . Cholecystectomy. Appendectomy. Hysterectomy. RADIATION DOSE: 11.80 CTDI (mGy) ; Combined studies COMPARISON: . TECHNIQUE: Multiple contiguous axial images were obtained through the chest without contrast. Image s were obtained in suspended respiration using multiple row detector helical technique. Using automa segundo exposure control and adjustment of the mA and/or kV according to patient size, radiation dose was kept as low as reasonably achievable to obtain optimal diagnostic quality images. DICOM format imag e data is available electronically for review and comparison. FINDINGS: Lungs: There are moderate bilateral pleural effusions. There is areas of consolidation or atelectasi s at the posterior lower lungs bilaterally. There are some patchy consolidation seen in the right upp er lung associated with bronchiectasis. There are some mild consolidation or atelectasis at the infer ior aspect of the left lingula. Mediastinum: There is good visualization of the great vessels of the middle mediastinum. No evidenc e of mediastinal or hilar adenopathy/mass. Coronary artery calcifications are present. There is a doug tral line in place from the left internal jugular approach with tip overlying the right atrium. The e sophagus is distended throughout the chest Pleurae: There are bilateral moderate pleural effusions are seen being worse on the right. Axillae: Unremarkable. Bony Structures: Spurring is seen throughout the thoracic spine. Miscellaneous: The examination was extended to include the upper abdomen, and both adrenal glands ar e normal in size and configuration. There is a 6 mm mass in the posterior superior left kidney though t to represent a cyst. CONCLUSION: 1. Development of moderate bilateral pleural effusions being worse in the right. 2. Areas of consolidation or atelectasis at the posterior lower lungs. Given the effusions is likely represent areas of atelectasis. 3. Consolidation and bronchiectasis in the right upper lung. This was present on the prior exam. It appears to progress. 4. Distended esophagus throughout the chest. Electronically signed by: Deniz Ca MD 06/28/2018 12:26 PM EDT
--- NOTE | 2018-06-28 12:35 | CT ---
EXAM DATE: 06/28/2018 11:56 AM EDT AGE/SEX: 72 years / Female INDICATIONS: Diffuse abdomen pain. CLINICAL DATA: This is the patient's initial encounter. Patient reports that signs and symptoms have been present for 1 day and indicates a pain score of Nonresponsive. MEDICAL/SURGICAL HISTORY: Carcinoma, cervical. Carcinoma, rectal. Gastroesophageal reflux dis ease. Cholecystectomy. Appendectomy. Hysterectomy. RADIATION DOSE: 11.80 CTDI (mGy) ; Combined studies COMPARISON: Prior CT examination from 06/25/2018.. TECHNIQUE: Multiple contiguous axial images were obtained through the abdomen. Images were obtained using multiple row detector helical technique. Using automated exposure control and adjustment of the mA and/or kV according to patient size, radiation dose was kept as low as reasonably achievable to o btain optimal diagnostic quality images. DICOM format image data is available electronically for rev iew and comparison. FINDINGS: Lower Lungs: Please see the CT chest report. Liver: The liver has a homogeneous density without space-occupying lesion. There is no dilation of th e biliary tree. The gallbladder is distended. Spleen: Homogeneous density without enlargement. Pancreas: Unremarkable without mass or calcification. Kidneys: There are several low-density masses seen at the periphery of the left kidney measuring up to 4.9 cm at the posterior superior left kidney. These likely represent cysts although they're nonspe cific on this noncontrast CT examination. There do appear to several calcifications in the inferior l eft kidney. Most of these appear cortical. The largest calcification is seen inferiorly and measures 1.3 cm. Adrenal Glands: Unremarkable. Aorta: The aorta and proximal iliac vessels are grossly unremarkable without aneurysmal dilation. Bowel/Mesentery: There are colonic diverticula in the sigmoid region. Abdominal Wall: Intact. Retroperitoneum: No evidence of adenopathy in the retrocrural, para-aortic, or deep pelvic regions. Bladder: There is a Brenner catheter in place. There is air within the urinary bladder likely from the Brenner catheter placement. Reproductive Organs: There is a 4.6 x 3.6 cm cystic areas in the left adnexa. There is free fluid in the pelvis. The patient appears to be status post hysterectomy. Inguinal: The inguinal region is unremarkable without evidence of adenopathy. Bony Structures: There is degenerative change in the lower lumbar spine. Incidental note is made of a lipoma in the abductors muscles at the medial anterior left upper thigh. CONCLUSION: 1. Colonic diverticula. 2. Persistent 4.6 cm left adnexal cystic mass. 3. Distended gallbladder. 4. Cortical calcic location seen at the left kidney with some cortical thinning. There are multiple left-sided renal masses likely related to cysts although they're nonspecific on this noncontrast CT e xamination. Electronically signed by: Deniz Ca MD 06/28/2018 12:33 PM EDT
[2018-06-28] MEDS ORDERED: Potassium Chlor 40 mEq Premix 40 MEQ/100 ML PIGGYBACK IV.SIG PRN (13:34)
[2018-06-28] MEDS ORDERED: Potassium Chloride 25 MEQ Effervescent Tablet PO PRN (13:34)
[2018-06-28] MEDS ORDERED: Potassium Phosphate 500 MG Soluble Tablet PO PRN ×2 (13:34)
[2018-06-28] MEDS ORDERED: Magnesium Sulfate Inj 2 GM in Sodium Chlor 0.9% Inj 96 ML IV.SIG PRN (13:34)
[2018-06-28] MEDS ORDERED: Magnesium Sulfate Inj 4 GM in Sodium Chlor 0.9% Inj 92 ML IV.SIG PRN (13:34)
[2018-06-28] MEDS ORDERED: Sodium Phosphate Inj 30 MMOL in Sodium Chlor 0.9% Inj 250 ML IV.SIG PRN (13:34)
[2018-06-28] MEDS ORDERED: Potassium Phosphate Inj 30 MMOL in Sodium Chlor 0.9% Inj 250 ML IV.SIG PRN (13:34)
[2018-06-28] MEDS ORDERED: Magnesium Oxide 400 MG Tablet PO PRN (13:34)
--- NOTE | 2018-06-28 16:15 | P.PNID ---
Subjective Remarks: doing poorly more lethargic, confused in a lot of abdominal pain CT A/p dw Dr Burnette: fluid in pelvis around + diarrhea + C.diff Allergies/Adverse Reactions: Allergies No Known Allergies Allergy (Verified 06/25/18 12:06) Objective Vital Signs 06/27/18 16:49 06/27/18 16:58 06/27/18 20:00 Temperature 98.5 F 97.6 F Pulse Rate 96 H 86 85 Respiratory Rate 24 23 25 H Blood Pressure 119/66 97/63 L Pulse Oximetry 90 L 90 L 06/27/18 21:32 06/28/18 00:00 06/28/18 00:22 Temperature 97.6 F Pulse Rate 89 92 H 128 H Respiratory Rate 17 26 H 20 Blood Pressure 98/65 L Pulse Oximetry 90 L 91 L 06/28/18 04:00 06/28/18 04:21 06/28/18 08:00 Temperature 97 F L 97.2 F L Pulse Rate 129 H 123 H 93 H Respiratory Rate 22 22 25 H Blood Pressure 103/71 110/68 Pulse Oximetry 91 L 92 L 06/28/18 08:53 06/28/18 09:00 06/28/18 10:00 Temperature Pulse Rate 97 H 96 H 101 H Respiratory Rate 25 H 31 H 33 H Blood Pressure 109/71 115/74 Pulse Oximetry 95 94 L 92 L 06/28/18 11:00 06/28/18 11:42 06/28/18 12:00 Temperature Pulse Rate 134 H 127 H 131 H Respiratory Rate 25 H 26 H 24 Blood Pressure 113/69 122/82 118/74 Pulse Oximetry 90 L 91 L 95 06/28/18 12:17 06/28/18 13:00 06/28/18 14:00 Temperature Pulse Rate 135 H 132 H 135 H Respiratory Rate 31 H 28 H 32 H Blood Pressure 115/66 115/81 122/67 Pulse Oximetry 93 L 92 L 92 L 06/28/18 15:00 06/28/18 15:56 06/28/18 16:00 Temperature Pulse Rate 129 H 99 H 95 H Respiratory Rate 34 H 24 25 H Blood Pressure 131/77 123/77 Pulse Oximetry 97 Intake & Output 06/27/18 06/28/18 06/28/18 18:59 06:59 18:59 Intake Total 1065 / 1065 857.5 / 857.5 Output Total 450 / 450 275 / 275 Balance 615 / 615 582.5 / 582.5 Weight 55 kg Intake: IV 1065 / 1065 857.5 / 857.5 Cordarone Inj 450 MG In D5W Inj 250 / 250 250 / 250 241 ML @ 1 MG/MIN 33.33 mls/hr IV.CONT TITRATE PRN Rx#: [id number] D5W/1/2 NS Inj 1,000 ML @ 50 100 / 100 mls/hr IV.CONT .Q20H PABLO Rx#: [id number] KCl Inj 30 MEQ In D5W/Normal 515 / 515 Saline Inj 1,000 ML @ 70 mls/hr IV.CONT .[id number] PABLO Rx#: [id number] Cordarone Inj 150 MG In D5W Inj 100 / 100 97 ML @ 600 mls/hr IV.SIG ONCE ONE Rx#:[id number] Intralipid 20% Inj 250 ML @ 31. 250 / 250 25 mls/hr IV.SIG Q24H [facility] Rx#: [id number] Merrem Inj 1,000 MG In NS Inj 100 / 100 100 / 100 100 ML @ 200 mls/hr IV.SIG Q12H PABLO Rx#:[id number] Vancomycin Inj 750 MG In NS Inj 257.5 / 257.5 250 ML @ 250 mls/hr IV.SIG Q24H [facility] Rx#:[id number] Oral 0 / 0 Intake (Blood Product) Amt 0 / 0 Plt Pheresis S Leukoreduced 0 / 0 Unit [id number] Output: Urine Amount (Catheter) 450 / 450 275 / 275 Indwelling Urethral Catheter 450 / 450 275 / 275 Other: # Voids 3 # Incontinent Voids 2 Date of Last Bowel Movement 06/27/18 06/27/18 06/27/18 # Bowel Movements 2 # Incontinent Bowel Movements 2 06/27/18 16:55 Clean Catch Urine Urine Culture - Preliminary No growth in 24 hours 06/27/18 10:50 Blood - Peripheral Aerobic Blood Culture - Preliminary No growth in 1 day 06/27/18 10:50 Blood - Peripheral Anaerobic Blood Culture - Preliminary No growth in 1 day 06/27/18 10:45 Blood - Peripheral Aerobic Blood Culture - Preliminary No growth in 1 day 06/27/18 10:45 Blood - Peripheral Anaerobic Blood Culture - Preliminary No growth in 1 day 06/25/18 12:10 Blood - Peripheral Aerobic Blood Culture - Preliminary 06/25/18 12:10 Blood - Peripheral Anaerobic Blood Culture - Final QNS - See aerobic report. 06/25/18 12:25 Blood - Peripheral Aerobic Blood Culture - Final Pseudomonas aeruginosa 06/25/18 12:25 Blood - Peripheral Anaerobic Blood Culture - Final QNS - See aerobic report. Lab - Hematology Results 06/27/18 06/27/18 06/28/18 05:45 10:45 04:30 WBC 4.8 4.1 7.8 D RBC 4.90 4.94 5.01 Hgb 12.6 12.7 13.7 Hct 38.8 38.5 39.2 MCV 79.0 L 78.1 L 78.2 L MCH 25.7 L 25.7 L 27.3 MCHC 32.5 32.9 35.0 RDW 18.7 H 18.5 H 19.4 H Plt Count 21 L D 17 L* 35 L D MPV 8.3 8.5 8.7 Prelim Diff (Auto) Manual diff required Slide review pending Neut % (Auto) 95.5 H Lymph % (Auto) 0.8 L Gladwin % (Auto) 3.7 Eos % (Auto) 0.0 Baso % (Auto) 0.0 Neut # (Auto) 3.9 Lymph # (Auto) 0.0 L Gladwin # (Auto) 0.2 Eos # (Auto) 0.0 Baso # (Auto) 0.0 WBC Differential Manual diff final Manual diff final Manual diff final Seg Neuts % (Manual) 53 51 75 H Band Neuts % (Manual) 33 H 34 H 7 H Lymphocytes % (Manual) 1 L 3 L 5 L Monocytes % (Manual) 11 H 6 6 Metamyelocytes % (Man) 2 H 7 H Myelocytes % (Man) 4 H Promyelocytes % (Man) 1 H Plasma Cell % (Manual) 1 H Abs Neuts (Manual) 4.2 3.7 6.9 Nucleated RBCs/100 WBC 3 H Differential Comment . . . Toxic Granulation 2+ H 2+ H Toxic Vacuolation Present H Present H Dohle Bodies Present H Present H Platelet Estimate Low L Low L Low L Platelet Morphology Enlarged H Enlarged H Normal Spherocytes Occ H Ovalocytes 1+ H 1+ H Darwin Cells 2+ H 2+ H 2+ H Keratocytes Occ H Lab - Chemistry Results 06/27/18 06/27/18 06/27/18 05:45 10:45 10:45 Sodium 150 H 154 H Potassium 4.0 4.0 Chloride 125 H D 126 H Carbon Dioxide 15.3 L 15.9 L Anion Gap 10 12 BUN 55 H 55 H Creatinine 1.22 H 1.13 H Estimated GFR 44 L 48 L POC Glucose Random Glucose 173 H 148 H Lactic Acid Calcium 6.9 L* 6.7 L* Prot Corrected Calcium 8.2 L 8.0 L Phosphorus 1.1 L Magnesium 1.6 Total Bilirubin 1.1 H 1.0 AST 41 H 34 ALT 46 44 Alkaline Phosphatase 37 L 38 L Total Creatine Kinase 137 Cancelled Total Protein 4.7 L 4.6 L Albumin 1.4 L D 1.4 L Triglycerides 132 TSH 0.984 06/27/18 06/27/18 06/27/18 10:45 14:10 18:11 Sodium Potassium Chloride Carbon Dioxide Anion Gap BUN Creatinine Estimated GFR POC Glucose 107 107 Random Glucose Lactic Acid Calcium Prot Corrected Calcium Phosphorus Magnesium Total Bilirubin AST ALT Alkaline Phosphatase Total Creatine Kinase Total Protein Albumin Triglycerides TSH Cancelled 06/27/18 06/28/18 06/28/18 23:17 04:30 09:45 Sodium 145 Potassium 3.2 L D Chloride 118 H D Carbon Dioxide 13.9 L Anion Gap 13 BUN 60 H Creatinine 1.36 H Estimated GFR 38 L POC Glucose 157 H Random Glucose 341 H D Lactic Acid 3.1 H Calcium 6.8 L* Prot Corrected Calcium 7.9 L Phosphorus Magnesium 1.6 Total Bilirubin 1.0 AST 30 ALT 36 Alkaline Phosphatase 52 Total Creatine Kinase Total Protein 5.0 L Albumin 1.4 L Triglycerides TSH 06/28/18 12:50 Sodium Potassium Chloride Carbon Dioxide Anion Gap BUN Creatinine Estimated GFR POC Glucose Random Glucose Lactic Acid Calcium Prot Corrected Calcium Phosphorus 1.0 L Magnesium Total Bilirubin AST ALT Alkaline Phosphatase Total Creatine Kinase Total Protein Albumin Triglycerides TSH Imaging: ITS Impressions Abdomen/Pelvis CT 06/28/18 00:00 CONCLUSION: 1. Colonic diverticula. 2. Persistent 4.6 cm left adnexal cystic mass. 3. Distended gallbladder. 4. Cortical calcic location seen at the left kidney with some cortical thinning. There are multiple left-sided renal masses likely related to cysts although they're nonspecific on this noncontrast CT examination. Chest CT 06/28/18 00:00 CONCLUSION: 1. Development of moderate bilateral pleural effusions being worse in the right. 2. Areas of consolidation or atelectasis at the posterior lower lungs. Given the effusions is likely represent areas of atelectasis. 3. Consolidation and bronchiectasis in the right upper lung. This was present on the prior exam. It appears to progress. 4. Distended esophagus throughout the chest. Head CT 06/28/18 00:00 CONCLUSION: Negative noncontrast head CT. . Chest X-Ray 06/28/18 09:34 CONCLUSION: Diffuse increased interstitial markings likely related to diffuse processes such as edema. There some superimposed atelectasis or consolidation at the bases being worse on the right. Physical Exam: GENERAL: moderate distress, in pain SKIN: Warm and dry. No rash HEAD: Atraumatic. Normocephalic. EYES: Pupils equal and round. No scleral icterus. No injection or drainage. ENT: No nasal bleeding or discharge. Mucous membranes very dry and crusted secretions in oropharynx is present NECK: Trachea midline. No JVD. CARDIOVASCULAR: Regular rate and rhythm. No murmurs RESPIRATORY: No accessory muscle use. Clear to auscultation. Breath sounds equal bilaterally. GASTROINTESTINAL: Abdomen soft, quite tender to palpation, no guardign, rebound + moderately distended. Hepatic and splenic margins not palpable. MUSCULOSKELETAL: Extremities without clubbing, + R index fingertip and R toes cyanosis, + edema. No obvious deformities. + non pitting RUE edema NEUROLOGICAL: lethargic, arousable . No obvious cranial nerve deficits. Motor grossly within normal limits. Five out of 5 muscle strength in the arms and legs. Normal speech. PSYCHIATRIC: unable to asseess Assessment and Plan - Plan Stage II anal canal carcinoma, undergoing XRT, chemo PSAE sepsis on presentation, source ? PICC vs UTI Sepsis' C.diff colitis cont meropenem Fu sensitivity of PSAE Flagyl IV cont oral vanco 500 US RUE Micafungin fu blood clx case was dw Jovanny Belcher (rad) tonja RN dw daughters @ b/s
[2018-06-28] MEDS: Albumin Human 25% Inj 100 ML IV.SIG SCH (18:50)
[2018-06-28] MEDS: Multivitamin Inj 10 ML, Folic Acid Inj 1 MG in AA 5%/D20W - Electrolytes 2,000 ML IV.SIG SCH (20:27)
[2018-06-28] MEDS: Potassium Chloride 20 MEQ Pwd Pkt NG/OG SCH (20:32)
[2018-06-28] MEDS: Micafungin Inj 150 MG in Sodium Chlor 0.9% Inj 100 ML IV.SIG SCH (20:32)
[2018-06-29] MEDS: Insulin NovoLOG Aspart Correctional Sugar Inj SQ SCH ×4 (00:50→19:31)
[2018-06-29] MEDS: Albumin Human 25% Inj 100 ML IV.SIG SCH ×2 (04:36→19:05)
[2018-06-29 05:58] LABS: Hematocrit 37.6 % (35.0-46.0); Hemoglobin 12.8 gm/dL (11.6-15.3); Mean Corpuscular HGB Conc 34.1 % (32.0-36.0); Mean Corpuscular Hemoglobin 26.8 pg (27.0-34.0); Mean Corpuscular Volume 78.6 fL (80.0-100.0); Mean Platelet Volume 12.3 fL (7.0-11.0); Red Blood Count 4.79 mil/mm3 (4.00-5.30); Red Cell Distribution Width 19.8 % (11.6-17.2); White Blood Count 16.9 th/mm3 (4.0-11.0)
[2018-06-29 06:14] LABS: Platelet Count 17 th/mm3 (150-450)
[2018-06-29] MEDS: HYDROmorphone PF Inj 2 MG/ML Vial IV.PUSH PRN (06:30)
[2018-06-29] MEDS: Levothyroxine 50 MCG Tablet PO SCH (06:48)
[2018-06-29 08:37] LABS: Lymphocytes 2 % (9-44); Metamyelocytes 1 % (0-1); Monocytes 4 % (0-8); Platelet Estimate Rare (Normal)
[2018-06-29 08:38] LABS: Plasma Cells 1 % (0-0)
[2018-06-29 08:39] LABS: Acanthocytes Occ; Ovalocytes 1+
[2018-06-29 08:40] LABS: Burr Cells 1+; Dohle Bodies Present; Toxic Granulation 1+
[2018-06-29] MEDS ORDERED: Dexmedetomidine Inj 200 MCG in Sodium Chlor 0.9% Inj 48 ML IV.CONT PRN (09:10)
--- NOTE | 2018-06-29 09:26 | US ---
EXAM DATE: 06/29/2018 12:00 AM EDT AGE/SEX: 72 years / Female INDICATIONS: Right arm swelling. CLINICAL DATA: This is the patient's initial encounter. Patient reports that signs and symptoms have been present for 1 day and indicates a pain score of Nonresponsive. MEDICAL/SURGICAL HISTORY: Diverticulosis. Gastroesophageal reflux disease. Hypothyroidism. R ectal cancer. Cervical cancer. Hysterectomy. Appendectomy. Lumpectomy. Colonoscopy. COMPARISON: . FINDINGS: FINDINGS Other: There is mild nonocclusive thrombus from the right axillary vein to the brachial vein. The ri t internal jugular vein and subclavian veins are patent. The ulnar and radial veins are patent. CONCLUSION: Mild nonocclusive thrombus in the right axillary vein to the brachial vein. Electronically signed by: Deniz Ca MD 06/29/2018 9:25 AM EDT
--- NOTE | 2018-06-29 09:30 | XR ---
EXAM DATE: 06/29/2018 9:00 AM EDT AGE/SEX: 72 years / Female INDICATIONS: Respiratory disease CLINICAL DATA: This is the patient's initial encounter. Patient reports that signs and symptoms have been present for 3 days and indicates a pain score of Nonresponsive. MEDICAL/SURGICAL HISTORY: . Diverticulitis. Gastroesophageal reflux disease. Anemia. Cervical cancer, Lung nodule, Hypothyroid, Mixed connective tissue disorder, Kidney stones . Appendectomy. Hy sterectomy. Breast biopsy lumpectomy, sigmoid polypectomy COMPARISON: . FINDINGS: The heart size is normal. The lungs demonstrate diffuse mixed interstitial and alveolar consolidation . The costophrenic angles are grossly clear. There is a left internal jugular central line overlying the upper right atrium. CONCLUSION: Diffuse consolidation likely related to diffuse processes such as edema or infection. Compared to the prior exam, the consolidation appears worse. Electronically signed by: Deniz Ca MD 06/29/2018 9:28 AM EDT
[2018-06-29 09:41] LABS: ABG Base Excess -5.9 mmol/L (-2-2); ABG PCO2 28 mmHg (38-42); ABG PO2 57 mmHG (61-120)
--- NOTE | 2018-06-29 10:06 | ECG ---
Date Performed: 06/28/2018 Time Performed: 11:13:04 PTAGE: 72 years EKG: Atrial fibrillation with rapid ventricular response. Poor R wave progression - probable nor mal variant Generalized low QRS voltages Abnormal ECG PREVIOUS TRACING : 06/27/2018 04.31 DOCTOR: Kaiser Olson Interpretating Date/Time 06/29/2018 10:03:40
[2018-06-29] MEDS: Potassium Chloride 20 MEQ Pwd Pkt NG/OG SCH ×2 (10:11→20:34)
[2018-06-29] MEDS: Pantoprazole Inj 40 MG Vial IV.PUSH SCH ×2 (10:13→20:35)
[2018-06-29] MEDS: Sodium Chloride 0.9% 2 ML Flush BID IV.FLUSH SCH ×2 (10:13→20:35)
--- NOTE | 2018-06-29 10:43 | P.PNCC ---
Subjective Subjective Remarks/Hospital Course: 72-year-old female with past medical history of anorectal squamous cell carcinoma, mixed connective tissue disease (SLE, Reynaud's, Polymyositis), remote cervical cancer status post hysterectomy, hypothyroid . She originally developed anal pain and bleeding in January of 2018. She was referred to Dr. Coelho who performed biopsy of anal mass on 04/25/18 which demonstrated invasive squamous cell carcinoma. Outpatient PET reportedly showed no local or distant metastatic disease. She has been undergoing radiation therapy under the care of Dr Concepcion. Concurrent chemotherapy is planned for week 1 and 5 of radiation; and she completed first chemo cycle 06/13/18. She has reportedly been having loose watery stools for several days, difficult to determine exact time of onset. She has also had abdominal pain. When she presented for radiation treatment on 06/25, she was weak and hypotensive so she was sent to the ED. She was pancytopenic with ANC 768. CT abd/pelvis showed fluid filled small bowel c/ w partial SBO or ileus. She was admitted to hospitalist service. Blood cultures were obtained 09/25 which have now resulted + pseudomonas in 09/26 bottles. She was started on cefepime 2 gram IV and vancomycin per hematology. Tmax was 101.2 Employee Relations Consultant consult has been requested. She has a RUE PICC placed 06/09 which does not have overt clinical signs of infection, but will be removed. 06/27 Patient is lethargic on Amio drip ( HR now controlled) Afebrile. 06/28 patient lying on bed very lethargic remains on amiodarone infusion. Appears very critical. WBC count is improved to 7.8, platelet count of 35. BUN /creatinine further elevated at 66/1.36. Patient not to be weaker on the right upper and lower extremity-I do not see any history of CVA. Will check CT of the head stat. Patient is not a candidate for TPA due to severe thrombocytopenia, so will not initiate stroke alert. Breathing slightly labored 06/29: Clinically deteriorating very lethargic tachypneic. ABG shows significant hypoxia. Chest x-ray shows worsening bilateral infiltrates/edema. I had discussed with daughters yesterday they wanted to continue full code, patient is encephalopathy again unable to make any decisions at this time. Give additional 20 mg of IV Lasix and continue scheduled 20 mg twice daily. If not improving in the next 45-60 minutes will need endotracheal intubation Objective Vital Signs / I&O: Vital Signs 06/28/18 11:00 06/28/18 11:42 06/28/18 12:00 Temperature Pulse Rate 134 H 127 H 131 H Respiratory Rate 25 H 26 H 24 Blood Pressure 113/69 122/82 118/74 Pulse Oximetry 90 L 91 L 95 06/28/18 12:17 06/28/18 13:00 06/28/18 14:00 Temperature Pulse Rate 135 H 132 H 135 H Respiratory Rate 31 H 28 H 32 H Blood Pressure 115/66 115/81 122/67 Pulse Oximetry 93 L 92 L 92 L 06/28/18 15:00 06/28/18 15:56 06/28/18 16:00 Temperature Pulse Rate 129 H 99 H 95 H Respiratory Rate 34 H 24 25 H Blood Pressure 131/77 123/77 Pulse Oximetry 97 06/28/18 17:00 06/28/18 18:00 06/28/18 19:00 Temperature Pulse Rate 106 H 119 H 96 H Respiratory Rate 35 H 39 H 22 Blood Pressure 122/77 122/98 H 110/71 Pulse Oximetry 93 L 91 L 90 L 06/28/18 20:00 06/28/18 21:00 06/28/18 21:15 Temperature 96.1 F L Pulse Rate 105 H 91 H 100 H Respiratory Rate 31 H 21 16 Blood Pressure 117/82 97/58 L Pulse Oximetry 89 L 93 L 93 L 06/28/18 22:00 06/28/18 23:00 06/29/18 00:00 Temperature 96.3 F L 96.6 F L Pulse Rate 105 H 92 H 91 H Respiratory Rate 23 21 24 Blood Pressure 105/76 105/68 96/62 L Pulse Oximetry 93 L 93 L 96 06/29/18 00:41 06/29/18 01:00 06/29/18 02:00 Temperature 97.0 F L 97.2 F L Pulse Rate 109 H 100 H 109 H Respiratory Rate 20 15 23 Blood Pressure 93/51 L 112/67 Pulse Oximetry 93 L 91 L 06/29/18 03:00 06/29/18 04:00 06/29/18 08:00 Temperature 97.3 F L 97.3 F L 97.5 F L Pulse Rate 96 H 98 H 106 H Respiratory Rate 14 17 16 Blood Pressure 92/53 L 96/59 L 102/66 Pulse Oximetry 94 L 89 L 06/29/18 08:33 06/29/18 08:48 06/29/18 09:00 Temperature 75.7 F L Pulse Rate 105 H 109 H Respiratory Rate 26 H 21 Blood Pressure 104/68 Pulse Oximetry 91 L 89 L 06/29/18 09:48 06/29/18 10:00 Temperature 95.4 F L Pulse Rate 111 H Respiratory Rate 19 Blood Pressure 112/66 Pulse Oximetry 94 L 91 L Intake & Output 06/28/18 06/29/18 06/29/18 18:59 06:59 18:59 Intake Total 350 / 350 1264 / 1264 600 / 600 Output Total 1400 / 1400 1200 / 1200 Balance -1050 / -1050 64 / 64 600 / 600 Weight 62 kg Intake: IV 350 / 350 1264 / 1264 600 / 600 Cordarone Inj 450 MG In D5W Inj 250 / 250 250 / 250 241 ML @ 1 MG/MIN 33.33 mls/hr IV.CONT TITRATE PRN Rx#: [id number] Flexbumin 25% Inj 100 ML @ 60 100 / 100 100 / 100 mls/hr IV.SIG Q12H [facility] Rx#: [id number] Intralipid 20% Inj 250 ML @ 31. 250 / 250 25 mls/hr IV.SIG Q24H [facility] Rx#: [id number] Merrem Inj 1,000 MG In NS Inj 100 / 100 100 / 100 100 ML @ 200 mls/hr IV.SIG Q12H [facility] Rx#:[id number] Mycamine Inj 150 MG In NS Inj 100 / 100 100 ML @ 100 mls/hr IV.SIG Q24H [facility] Rx#:[id number] MVI-12 Inj 10 ML Folvite Inj 1 504 / 504 MG In Clinimix E 5%/D20W Inj 2, 000 ML @ 42.214 mls/hr IV.SIG Q24H [facility] Rx#:[id number] Potassium Phosphate Inj 30 MMOL 260 / 260 In NS Inj 250 ML @ 42 mls/hr IV.SIG UNSCH PRN Rx#:[id number] Flagyl 500 MG Inj 100 ML @ 100 200 / 200 mls/hr IV.SIG Q8H [facility] Rx#: [id number] Output: Urine Amount (Catheter) 1400 / 1400 1200 / 1200 Indwelling Urethral Catheter 1400 / 1400 1200 / 1200 Other: Date of Last Bowel Movement 06/27/18 06/27/18 06/27/18 Result Diagrams: 06/29/18 04:40 06/29/18 04:40 Objective Remarks: GENERAL: Patient is 72 lying in bed ,Critically ill, lethargic tachycardic SKIN: Warm and dry. HEAD: Normocephalic. EYES: No scleral icterus. No injection or drainage. Anemic ENT: Oral mucosa is dry NECK: Supple, trachea midline. No JVD or lymphadenopathy. CARDIOVASCULAR: Tachycardic rate and sinus rhythm without murmurs, gallops, or rubs. RESPIRATORY: Tachypneic, diffuse bilateral coarse rhonchi and crackles all over bilateral chest. Patient appears to be in moderate respiratory distress GASTROINTESTINAL: Abdomen soft, non-tender, nondistended. MUSCULOSKELETAL: No cyanosis, or edema. Neuro: Lethargic, follows commands bilaterally right upper extremity and right lower extremity 2 out of 5 power compared to 4 out of 5 power on the left side. Assessment and Plan - Assessment and Plan Plan: NEURO: Acute metabolic encephalopathy Lethargy secondary to sepsis Dilaudid prn pain CT of the negative for acute findings Monitor neuro status RESP: Acute hypoxemic respiratory failure Pulmonary edema ABG shows severe hypoxemia Due to altered mental status patient is not a candidate for BiPAP Currently on nonrebreather if not improving with diuresis, will place on mechanical ventilation Continue bronchodilators CXR: Mild pulm edema on 06/26/2018, repeat chest x-ray today shows worsening bilateral infiltrates/edema CV: Hypotension secondary to volume depletion and sepsis. Atrial fibrillation with RVR s/p 2 L normal saline bolus and blood pressure normalized with MAP 70-77. Currently on IV Lasix 20 mg every 12 for pulmonary edema Levophed if needed to maintain MAP>65mmHg On Amio drip for Afib with RVR- now HR controlled. Continue TPN GI: Diarrhea Abdominal pain Ileus Squamous cell carcinoma of the anus Moderate protein energy malnutrition C. difficile colitis NPO for bowel rest. Continue TPN CRS is following- Dr. Coelho FEN/RENAL: GREY Monitor intake and output. Monitor electrolytes. Replace electrolytes as indicated per ICU electrolyte replacement protocol. Continue TPN IV Lasix as above ID: Pseudomonas bacteremia 06/25 Severe sepsis with probable GI source C Diff Continue abx- On [id number] Q12 to cover Pseudomonas. On Vancomycin 500 mg p.o. every 6 hours and follow-C. difficile positive by DNA amplification. IV Flagyl added by ID Blood culture growing Pseudomonas. C. difficile positive by DNA amplification Removed PICC 06/26. HEME: Squamous cell carcinoma anorectal Pancytopenia On Neupogen per oncology. Neutropenia has resolved, thrombocytopenia persists SCC anus - s/p chemo completed 06/13. Radiation therapy on hold per Dr. Concepcion. Decadron 4 mg IV q6 hours . Monitor CBC, coags. Plt and blood product transfusion per heme ENDO: Acute hyperglycemia Monitor bedside glucose every 6 hours and initiate low-dose insulin sliding scale as indicated. On Synthroid 50 mcg daily PROPH: SCD for DVT prophylaxis. On Protonix 40mg Q12 for GI prophylaxis ACCESS: Removed right upper extremity PICC 06/26. L IJ CVL placed 06/26 Palliative care following Full code Patient is critically ill with pancytopenia and sepsis with multiorgan dysfunction. Now with worsening hypoxemic respiratory failure pulmonary edema and encephalopathy. I discussed with both daughters yesterday they request full code. Patient is unable to make decisions. Most likely will need endotracheal intubation CCT 40 mins excluding procedures
[2018-06-29 11:19] LABS: Phosphorus 2.8 mg/dL (2.5-4.9); Potassium 3.8 meq/L (3.5-5.1)
[2018-06-29] MEDS ORDERED: Midazolam Inj 5 MG/ML 1 ML Vial ONE (12:03)
[2018-06-29] MEDS ORDERED: Etomidate Inj 40 MG/20 ML Vial IV.PUSH ONE (12:03)
[2018-06-29] MEDS ORDERED: Sodium Bicarbonate 8.4% Inj 50 MEQ/50 ML Syringe ONE (12:06)
[2018-06-29] MEDS ORDERED: Acetaminophen 325 MG Tablet PO PRN (12:15)
--- NOTE | 2018-06-29 12:16 | P.PNONC ---
Subjective Interval history: Patient appears to be somewhat hypothermic. Bear hugger currently in place. Patient is obtunded; not following commands Respiratory therapy at bedside; an ABG was just performed that showed significant hypoxia. Patient getting transitioned from Ventimask to partial nonrebreather. Per RN LIAISON she has had no bleeding Objective Vital Signs/Intake & Output: Vital Signs 06/28/18 12:17 06/28/18 13:00 06/28/18 14:00 Temperature Pulse Rate 135 H 132 H 135 H Respiratory Rate 31 H 28 H 32 H Blood Pressure 115/66 115/81 122/67 Pulse Oximetry 93 L 92 L 92 L 06/28/18 15:00 06/28/18 15:56 06/28/18 16:00 Temperature Pulse Rate 129 H 99 H 95 H Respiratory Rate 34 H 24 25 H Blood Pressure 131/77 123/77 Pulse Oximetry 97 06/28/18 17:00 06/28/18 18:00 06/28/18 19:00 Temperature Pulse Rate 106 H 119 H 96 H Respiratory Rate 35 H 39 H 22 Blood Pressure 122/77 122/98 H 110/71 Pulse Oximetry 93 L 91 L 90 L 06/28/18 20:00 06/28/18 21:00 06/28/18 21:15 Temperature 96.1 F L Pulse Rate 105 H 91 H 100 H Respiratory Rate 31 H 21 16 Blood Pressure 117/82 97/58 L Pulse Oximetry 89 L 93 L 93 L 06/28/18 22:00 06/28/18 23:00 06/29/18 00:00 Temperature 96.3 F L 96.6 F L Pulse Rate 105 H 92 H 91 H Respiratory Rate 23 21 24 Blood Pressure 105/76 105/68 96/62 L Pulse Oximetry 93 L 93 L 96 06/29/18 00:41 06/29/18 01:00 06/29/18 02:00 Temperature 97.0 F L 97.2 F L Pulse Rate 109 H 100 H 109 H Respiratory Rate 20 15 23 Blood Pressure 93/51 L 112/67 Pulse Oximetry 93 L 91 L 06/29/18 03:00 06/29/18 04:00 06/29/18 08:00 Temperature 97.3 F L 97.3 F L 97.5 F L Pulse Rate 96 H 98 H 106 H Respiratory Rate 14 17 16 Blood Pressure 92/53 L 96/59 L 102/66 Pulse Oximetry 94 L 89 L 06/29/18 08:33 06/29/18 08:48 06/29/18 09:00 Temperature 75.7 F L Pulse Rate 105 H 109 H Respiratory Rate 26 H 21 Blood Pressure 104/68 Pulse Oximetry 91 L 89 L 06/29/18 09:48 06/29/18 10:00 06/29/18 11:24 Temperature 95.4 F L Pulse Rate 111 H 105 H Respiratory Rate 19 21 Blood Pressure 112/66 Pulse Oximetry 94 L 91 L Intake & Output 06/28/18 06/29/18 06/29/18 18:59 06:59 18:59 Intake Total 350 / 350 1264 / 1264 600 / 600 Output Total 1400 / 1400 1200 / 1200 Balance -1050 / -1050 64 / 64 600 / 600 Weight 136 lb 10.986 oz Intake: IV 350 / 350 1264 / 1264 600 / 600 Cordarone Inj 450 MG In D5W Inj 250 / 250 250 / 250 241 ML @ 1 MG/MIN 33.33 mls/hr IV.CONT TITRATE PRN Rx#: [id number] Flexbumin 25% Inj 100 ML @ 60 100 / 100 100 / 100 mls/hr IV.SIG Q12H FERN Rx#: [id number] Intralipid 20% Inj 250 ML @ 31. 250 / 250 25 mls/hr IV.SIG Q24H FERN Rx#: [id number] Merrem Inj 1,000 MG In NS Inj 100 / 100 100 / 100 100 ML @ 200 mls/hr IV.SIG Q12H FERN Rx#:[id number] Mycamine Inj 150 MG In NS Inj 100 / 100 100 ML @ 100 mls/hr IV.SIG Q24H FERN Rx#:[id number] MVI-12 Inj 10 ML Folvite Inj 1 504 / 504 MG In Clinimix E 5%/D20W Inj 2, 000 ML @ 42.214 mls/hr IV.SIG Q24H FERN Rx#:[id number] Potassium Phosphate Inj 30 MMOL 260 / 260 In NS Inj 250 ML @ 42 mls/hr IV.SIG UNSCH PRN Rx#:[id number] Flagyl 500 MG Inj 100 ML @ 100 200 / 200 mls/hr IV.SIG Q8H FERN Rx#: [id number] Output: Urine Amount (Catheter) 1400 / 1400 1200 / 1200 Indwelling Urethral Catheter 1400 / 1400 1200 / 1200 Other: Date of Last Bowel Movement 06/27/18 06/27/18 06/27/18 Result Diagrams: 06/29/18 04:40 06/29/18 09:20 Laboratory Results: Laboratory Results - last 24 hr 06/28/18 06/28/18 06/28/18 04:30 12:50 19:40 WBC RBC Hgb Hct MCV MCH MCHC RDW Plt Count MPV Prelim Diff (Auto) WBC Differential Seg Neuts % (Manual) Band Neuts % (Manual) Lymphocytes % (Manual) Monocytes % (Manual) Metamyelocytes % (Man) Plasma Cell % (Manual) Abs Neuts (Manual) Differential Comment . Toxic Granulation Dohle Bodies Platelet Estimate Platelet Morphology Ovalocytes Darwin Cells Acanthocytes (Spur) Keratocytes Puncture Site Patient Temperature O2 Saturation ABG pH ABG pCO2 ABG pO2 ABG HCO3 ABG O2 Content ABG Base Excess ABG Methemoglobin Flako Test Hemoglobin Carboxyhemoglobin O2 Delivery Device Liter Flow Inspired O2 Critical Value Potassium Creatinine Estimated GFR POC Glucose 202 H Lactic Acid Phosphorus 1.0 L 06/29/18 06/29/18 06/29/18 00:34 04:40 04:40 WBC 16.9 H RBC 4.79 Hgb 12.8 Hct 37.6 MCV 78.6 L MCH 26.8 L MCHC 34.1 RDW 19.8 H Plt Count 17 L* D MPV 12.3 H Prelim Diff (Auto) Manual diff required WBC Differential Manual diff final Seg Neuts % (Manual) 82 H Band Neuts % (Manual) 10 H Lymphocytes % (Manual) 2 L Monocytes % (Manual) 4 Metamyelocytes % (Man) 1 Plasma Cell % (Manual) 1 H Abs Neuts (Manual) 15.7 H Differential Comment . Toxic Granulation 1+ H Dohle Bodies Present H Platelet Estimate Rare L Platelet Morphology Enlarged H Ovalocytes 1+ H Darwin Cells 1+ H Acanthocytes (Spur) Occ H Keratocytes Occ H Puncture Site Patient Temperature O2 Saturation ABG pH ABG pCO2 ABG pO2 ABG HCO3 ABG O2 Content ABG Base Excess ABG Methemoglobin Flako Test Hemoglobin Carboxyhemoglobin O2 Delivery Device Liter Flow Inspired O2 Critical Value Potassium Creatinine 1.39 H Estimated GFR 37 L POC Glucose 300 H Lactic Acid Phosphorus 06/29/18 06/29/1818 06:34 09:20 09:24 WBC RBC Hgb Hct MCV MCH MCHC RDW Plt Count MPV Prelim Diff (Auto) WBC Differential Seg Neuts % (Manual) Band Neuts % (Manual) Lymphocytes % (Manual) Monocytes % (Manual) Metamyelocytes % (Man) Plasma Cell % (Manual) Abs Neuts (Manual) Differential Comment Toxic Granulation Dohle Bodies Platelet Estimate Platelet Morphology Ovalocytes [place] Cells Acanthocytes (Spur) Keratocytes Puncture Site Right radial Patient Temperature 98.6 O2 Saturation 87 L* ABG pH 7.42 ABG pCO2 28 L ABG pO2 57 L* ABG HCO3 18 L ABG O2 Content 15.3 ABG Base Excess -5.9 L ABG Methemoglobin 1.8 Flako Test Present Hemoglobin 12.5 Carboxyhemoglobin 0.9 O2 Delivery Device Venti mask Liter Flow 6.00 Inspired O2 50 Critical Value Yes Potassium 3.8 Creatinine Estimated GFR POC Glucose 230 H Lactic Acid Phosphorus 2.8 D 06/29/18 10:50 WBC RBC Hgb Hct MCV MCH MCHC RDW Plt Count MPV Prelim Diff (Auto) WBC Differential Seg Neuts % (Manual) Band Neuts % (Manual) Lymphocytes % (Manual) Monocytes % (Manual) Metamyelocytes % (Man) Plasma Cell % (Manual) Abs Neuts (Manual) Differential Comment Toxic Granulation Dohle Bodies Platelet Estimate Platelet Morphology Ovalocytes Darwin Cells Acanthocytes (Spur) Keratocytes Puncture Site Patient Temperature O2 Saturation ABG pH ABG pCO2 ABG pO2 ABG HCO3 ABG O2 Content ABG Base Excess ABG Methemoglobin Flako Test Hemoglobin Carboxyhemoglobin O2 Delivery Device Liter Flow Inspired O2 Critical Value Potassium Creatinine Estimated GFR POC Glucose Lactic Acid 2.3 H Phosphorus Culture Results: Microbiology 06/27/18 10:50 Aerobic Blood Culture - Preliminary Blood - Peripheral No growth in 2 days Anaerobic Blood Culture - Preliminary No growth in 2 days 06/27/18 10:45 Aerobic Blood Culture - Preliminary Blood - Peripheral No growth in 2 days Anaerobic Blood Culture - Preliminary No growth in 2 days 06/27/18 16:55 Urine Culture - Final Clean Catch Urine No growth in 48 hours 06/25/18 12:10 Aerobic Blood Culture - Preliminary Blood - Peripheral Anaerobic Blood Culture - Final QNS - See aerobic report. 06/25/18 12:25 Aerobic Blood Culture - Final Blood - Peripheral Pseudomonas aeruginosa Anaerobic Blood Culture - Final QNS - See aerobic report. Imaging Studies: Impressions Abdomen/Pelvis CT 06/28/18 00:00 CONCLUSION: 1. Colonic diverticula. 2. Persistent 4.6 cm left adnexal cystic mass. 3. Distended gallbladder. 4. Cortical calcic location seen at the left kidney with some cortical thinning. There are multiple left-sided renal masses likely related to cysts although they're nonspecific on this noncontrast CT examination. Chest CT 06/28/18 00:00 CONCLUSION: 1. Development of moderate bilateral pleural effusions being worse in the right. 2. Areas of consolidation or atelectasis at the posterior lower lungs. Given the effusions is likely represent areas of atelectasis. 3. Consolidation and bronchiectasis in the right upper lung. This was present on the prior exam. It appears to progress. 4. Distended esophagus throughout the chest. Head CT 06/28/18 00:00 CONCLUSION: Negative noncontrast head CT. . Venous Doppler Study 06/29/18 00:00 CONCLUSION: Mild nonocclusive thrombus in the right axillary vein to the brachial vein. Chest X-Ray 06/29/18 09:00 CONCLUSION: Diffuse consolidation likely related to diffuse processes such as edema or infection. Compared to the prior exam, the consolidation appears worse. Medications: Active Medications Generic Name Dose Route Start Last Admin Trade Name Freq PRN Reason Stop Dose Admin Albuterol 1 ampul 06/27/18 12:00 06/29/18 11:23 Duoneb Neb (Fern) NEB 1 ampul Q4HR NEB FERN Administration Furosemide 20 mg 06/28/18 18:00 06/29/18 10:11 Lasix Inj IV.PUSH 20 mg BID@0900,1800 FERN Administration Hydromorphone HCl 0.5 mg 06/26/18 14:00 06/29/18 06:30 Dilaudid Pf Inj IV.PUSH 0.5 mg Q3H PRN Administration PAIN 3-10 Meropenem 1,000 mg/ Sodium 100 mls @ 200 mls/hr 06/26/18 21:00 06/29/18 10:11 Chloride IV.SIG 200 mls/hr Q12H FERN Administration Amiodarone HCl 450 mg/ 250 mls @ 33.33 mls/hr 06/27/18 04:37 06/29/18 10:08 Dextrose IV.CONT 0.5 mg/min TITRATE PRN 16.66 mls/hr Per Protocol Administration Protocol 1 MG/MIN Multivitamins 10 ml/ Folic 2,010.2 mls @ 42.214 mls/hr 06/27/18 20:00 20:27 Acid 1 mg/ Amino Acids/ IV.SIG 42.21 mls/hr Electrolytes Q24H FERN Administration Fat Emulsion Intravenous 250 mls @ 31.25 mls/hr 06/27/18 20:00 06/29/18 07:30 Intralipid 20% Inj IV.SIG Infused Q24H FERN Infusion Potassium Phosphate 30 mmol/ 260 mls @ 42 mls/hr 06/28/18 13:34 06/29/18 03: 13 Sodium Chloride IV.SIG Infused UNSCH PRN Infusion SEE LABEL COMMENTS Albumin Human 100 mls @ 60 mls/hr 06/28/18 16:00 06/29/18 07:29 Flexbumin 25% Inj IV.SIG Infused Q12H FERN Infusion Metronidazole/Sodium Chloride 100 mls @ 100 mls/hr 06/28/18 17:00 06/29/18 10 :12 Flagyl 500 Mg Inj IV.SIG 100 mls/hr Q8H FERN Administration Micafungin Sodium 150 mg/ 100 mls @ 100 mls/hr 06/28/18 18:00 06/29/18 03:13 Sodium Chloride IV.SIG Infused Q24H FERN Infusion Insulin Aspart 0 unit 06/27/18 12:00 06/29/18 06:48 Novolog Insulin Correctional Sugar Inj SQ 3 unit Q6HR FERN Administration Protocol Levothyroxine Sodium 50 mcg 06/26/18 06:00 06/29/18 06:48 Synthroid PO Not Given DAILY@0600 [facility] Ondansetron HCl 4 mg 06/26/18 04:31 06/27/18 14:12 Zofran Inj IV.PUSH 4 mg Q6H PRN Administration NAUSEA OR VOMITING Pantoprazole Sodium 40 mg 06/25/18 16:00 06/29/18 10:13 Protonix Inj IV.PUSH 40 mg Q12HR FERN Administration Potassium Chloride 20 meq 06/28/18 21:00 06/29/18 10:11 Kcl Powder NG/OG Not Given BID FERN Sodium Chloride 2 ml 06/27/18 21:00 06/29/18 10:13 Ns Flush IV.FLUSH 2 ml BID FERN Administration Sodium Chloride 2 ml 06/27/18 10:30 06/28/18 06:02 Ns Flush IV.FLUSH 2 ml PRN PRN Administration FLUSH AFTER USING IV ACCESS Vancomycin HCl 500 mg 06/28/18 16:16 06/29/18 10:13 Vancomycin Po PO Not Given QID FERN Objective Remarks: GENERAL: Acutely ill appearing older female resting in bed SKIN: Warm and dry. Scattered petechiae. No oozing from lines HEAD: Normocephalic. EYES: No scleral icterus. No injection or drainage. NECK: Supple, trachea midline. CARDIOVASCULAR: Tachycardic. RESPIRATORY: Tachypneic. RT at bedside placing her on partial nonrebreather GASTROINTESTINAL: Abdomen soft, tender, nondistended. EXTREMITIES: No edema. MUSCULOSKELETAL: Generalized weakness NEUROLOGICAL: Patient obtunded. She is not following commands. She is also no longer shaking her head yes and no to simple questions. Assessment/Plan - Plan Ms. 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 She had received 5 days of chemotherapy, completed on 06/13/2018. She is currently receiving radiation therapy which started on she was admitted for acute renal failure related to dehydration, intractable diarrhea from radiation chemotherapy. Plan: 1. The patient appears to be deteriorating. Defer to critical care for respiratory management. 2. Continue antibiotics per infectious disease 3. Noted she has a nonocclusive thrombus from previous PICC line. 4. Platelet count low at 17,000 today. I have ordered 1 unit of single donor platelets to be given in anticipation of possible intubation, invasive procedures etc. 5. Condition very poor at this time. Patient remains full code per family request - Attending Statement The exam, history, and the medical decision-making described in the above note were completed with the assistance of the mid-level provider. I reviewed and agree with the findings presented. I attest that I had a [id number] encounter with the patient on the same day, and personally performed and documented my assessment and findings in the medical record. 72 yoF with SCC of the anorectum currently treated with concurrent chemotherapy and radiation therapy prior to hospital admission. She is admitted with sepsis , encephalopathy, declining respiratory status. Overall prognosis is very poor.
--- NOTE | 2018-06-29 12:21 | P.PCN ---
Date of procedure: 06/29/18 Pre-op diagnosis: Acute hypoxemic respiratory failure Post-op diagnosis: same Procedure: The patient was appropriately positioned, and was bagged with bag valve mask and 100% oxygen. Patient was administered 5 mg of IV Versed, 15 mg of etomidate , and 50 mg IV rocuronium. Direct laryngoscopy was performed with a 3 Chase laryngoscope blade and a grade 2 Cormack-Lehane view was obtained. On single attempt patient was intubated with a size 8.0 endotracheal tube. Correct placement was confirmed with direct visualization of ET tube passing through the vocal cords, and CO2 detector. Breath sounds were equal bilaterally. No sounds auscultated over the stomach. The endotracheal tube was secured at 22 cm at the lips. CXR is pending Anesthesia: KAREN Surgeon: Nav Guaman Estimated blood loss (mL): 0 Pathology: none sent Condition: critical Disposition: ICU
--- NOTE | 2018-06-29 12:49 | XR ---
EXAM DATE: 06/29/2018 12:00 AM EDT AGE/SEX: 72 years / Female INDICATIONS: Post intubation. CLINICAL DATA: This is the patient's subsequent encounter. Patient reports that signs and symptoms h ave been present for 1 day and indicates a pain score of Nonresponsive. MEDICAL/SURGICAL HISTORY: . Diverticulitis. Gastroesophageal reflux disease. Anemia. Cervical c ancer, Lung nodule, Hypothyroid, Mixed connective tissue disorder, Kidney stones. . Appendectomy. H ysterectomy. Breast biopsy lumpectomy, sigmoid polypectomy. COMPARISON: . FINDINGS: The patient is intubated with the tip of ET tube 4.5 cm from the inderjit in good position. There is a left internal jugular central line in place with the tip overlying the upper breast to the right atri um. The heart size is normal. There is diffuse mixed interstitial and alveolar consolidation being wo rse in the left perihilar region and the left base. CONCLUSION: ET tube and left internal jugular central line in good position. Diffuse mixed interstitial and alveolar consolidation likely related to diffuse processes such as mauri ma or diffuse infection. The lungs appear unchanged from the prior exam. Electronically signed by: Deniz Ca MD 06/29/2018 12:47 PM EDT
[2018-06-29] MEDS ORDERED: Sodium Chlor 0.9% Inj 250 ML IV.SIG SCH (13:00)
[2018-06-29] MEDS: Midazolam 50 MG/50 ML Inj 50 MG/50 ML BAG IV.CONT PRN (13:13)
[2018-06-29 14:34] LABS: ABG Base Excess -4.1 mmol/L (-2-2); ABG PCO2 46 mmHg (38-42); ABG PO2 154 mmHG (61-120)
[2018-06-29] MEDS ORDERED: Pharmacy Ordered Lab Info OTHER ONE (15:45)
[2018-06-29] MEDS: Oral Hygiene Kit OROPHARYNG SCH (19:05)
[2018-06-29] MEDS: Micafungin Inj 150 MG in Sodium Chlor 0.9% Inj 100 ML IV.SIG SCH (19:05)
[2018-06-29] MEDS: Multivitamin Inj 10 ML, Folic Acid Inj 1 MG in AA 5%/D20W - Electrolytes 2,000 ML IV.SIG SCH (20:32)
[2018-06-29] MEDS: Chlorhexidine 0.12% Oral Kit 15 ML UDC OROPHARYNG SCH (20:34)
--- NOTE | 2018-06-29 21:29 | P.PNID ---
Subjective Remarks: cinically deteriorating ABG shows significant hypoxia. Chest x-ray shows worsening bilateral infiltrates/edema. pt was s intubated earlier today + diarrhea Antibiotics: meropenem vanco PO flagyl micafungin Past Medical History: anal cancer Allergies/Adverse Reactions: Allergies No Known Allergies Allergy (Verified 06/25/18 12:06) Objective Vital Signs 06/28/18 22:00 06/28/18 23:00 06/29/18 00:00 Temperature 96.3 F L 96.6 F L Pulse Rate 105 H 92 H 91 H Respiratory Rate 23 21 24 Blood Pressure 105/76 105/68 96/62 L Pulse Oximetry 93 L 93 L 96 06/29/18 00:41 06/29/18 01:00 06/29/18 02:00 Temperature 97.0 F L 97.2 F L Pulse Rate 109 H 100 H 109 H Respiratory Rate 20 15 23 Blood Pressure 93/51 L 112/67 Pulse Oximetry 93 L 91 L 06/29/18 03:00 06/29/18 04:00 06/29/18 08:00 Temperature 97.3 F L 97.3 F L 97.5 F L Pulse Rate 96 H 98 H 106 H Respiratory Rate 14 17 16 Blood Pressure 92/53 L 96/59 L 102/66 Pulse Oximetry 94 L 89 L 06/29/18 08:33 06/29/18 08:48 06/29/18 09:00 Temperature 75.7 F L Pulse Rate 105 H 109 H Respiratory Rate 26 H 21 Blood Pressure 104/68 Pulse Oximetry 91 L 89 L 06/29/18 09:48 06/29/18 10:00 06/29/18 11:24 Temperature 95.4 F L Pulse Rate 111 H 105 H Respiratory Rate 19 21 Blood Pressure 112/66 Pulse Oximetry 94 L 91 L 06/29/18 12:12 06/29/18 13:14 06/29/18 13:45 Temperature 99.1 F Pulse Rate 117 H Respiratory Rate 16 16 Blood Pressure 120/72 Pulse Oximetry 95 95 94 L 06/29/18 14:00 06/29/18 14:15 06/29/18 14:30 Temperature 99.9 F H 99.7 F H 98.4 F Pulse Rate 119 H 119 H 119 H Respiratory Rate 16 16 16 Blood Pressure 120/73 120/71 118/72 Pulse Oximetry 94 L 95 95 06/29/18 14:45 06/29/18 15:00 06/29/18 15:15 Temperature 99.3 F 99.3 F 99.5 F Pulse Rate 119 H 118 H 118 H Respiratory Rate 16 16 17 Blood Pressure 120/75 117/73 120/73 Pulse Oximetry 95 95 95 06/29/18 15:30 06/29/18 15:45 06/29/18 15:58 Temperature 99.7 F H 99.9 F H 99 F Pulse Rate 118 H 118 H 118 H Respiratory Rate 20 20 19 Blood Pressure 120/74 122/74 122/74 Pulse Oximetry 94 L 95 06/29/18 16:00 06/29/18 16:09 06/29/18 16:15 Temperature 100.8 F H 100.6 F H Pulse Rate 118 H 118 H 118 H Respiratory Rate 20 20 19 Blood Pressure 121/72 113/67 Pulse Oximetry 94 L 95 95 06/29/18 16:30 06/29/18 16:45 06/29/18 17:00 Temperature 99.9 F H 99.7 F H 96.6 F L Pulse Rate 122 H 121 H 122 H Respiratory Rate 21 19 20 Blood Pressure 113/67 114/67 113/68 Pulse Oximetry 94 L 94 L 94 L 06/29/18 17:15 06/29/18 17:30 06/29/18 17:45 Temperature 98.6 F 99.0 F 99.0 F Pulse Rate 121 H 121 H 120 H Respiratory Rate 20 21 19 Blood Pressure 117/71 112/72 118/73 Pulse Oximetry 95 95 95 06/29/18 18:00 06/29/18 18:15 06/29/18 18:30 Temperature 98.8 F 99.3 F 99.5 F Pulse Rate 120 H 118 H 116 H Respiratory Rate 20 19 19 Blood Pressure 123/75 119/72 115/70 Pulse Oximetry 94 L 94 L 94 L 06/29/18 18:45 06/29/18 19:00 06/29/18 19:15 Temperature 99.5 F 98.2 F 98.4 F Pulse Rate 116 H 118 H 118 H Respiratory Rate 19 20 20 Blood Pressure 120/73 122/73 119/74 Pulse Oximetry 94 L 94 L 94 L 06/29/18 19:30 06/29/18 19:45 Temperature 98.6 F 99.0 F Pulse Rate 116 H 114 H Respiratory Rate 20 20 Blood Pressure 110/65 111/69 Pulse Oximetry 94 L 94 L Intake & Output 06/29/18 06/29/18 06/30/18 06:59 18:59 06:59 Intake Total 1264 / 1264 1281 / 1281 1118.2 / 1118.2 Output Total 1200 / 1200 1650 / 1650 Balance 64 / 64 -369 / -369 1118.2 / 1118.2 Weight 62 kg Intake: IV 1264 / 1264 800 / 800 1118.2 / 1118.2 Cordarone Inj 450 MG In D5W Inj 250 / 250 241 ML @ 1 MG/MIN 33.33 mls/hr IV.CONT TITRATE PRN Rx#: [id number] Flexbumin 25% Inj 100 ML @ 60 100 / 100 100 / 100 mls/hr IV.SIG Q12H PABLO Rx#: [id number] Intralipid 20% Inj 250 ML @ 31. 250 / 250 25 mls/hr IV.SIG Q24H PABLO Rx#: [id number] Merrem Inj 1,000 MG In NS Inj 100 / 100 100 / 100 100 ML @ 200 mls/hr IV.SIG Q12H PABLO Rx#:[id number] Mycamine Inj 150 MG In NS Inj 100 / 100 100 ML @ 100 mls/hr IV.SIG Q24H PABLO Rx#:[id number] MVI-12 Inj 10 ML Folvite Inj 1 504 / 504 1018.2 / 1018.2 MG In Clinimix E 5%/D20W Inj 2, 000 ML @ 42.214 mls/hr IV.SIG Q24H PABLO Rx#:[id number] Potassium Phosphate Inj 30 MMOL 260 / 260 In NS Inj 250 ML @ 42 mls/hr IV.SIG UNSCH PRN Rx#:[id number] Flagyl 500 MG Inj 100 ML @ 100 200 / 200 100 / 100 100 / 100 mls/hr IV.SIG Q8H PABLO Rx#: [id number] Intake (Blood Product) Amt 481 / 481 Plt Pheresis C Leukored Pas 184 / 184 Unit [id number] Plt Pheresis S Leukoreduced 297 / 297 Unit [id number] Output: Urine Amount (Catheter) 1200 / 1200 1650 / 1650 Indwelling Urethral Catheter 1200 / 1200 1650 / 1650 Other: Date of Last Bowel Movement 06/27/18 06/27/18 # Bowel Movements 1 06/25/18 12:10 Blood - Peripheral Aerobic Blood Culture - Preliminary 06/25/18 12:10 Blood - Peripheral Anaerobic Blood Culture - Final QNS - See aerobic report. 06/27/18 10:50 Blood - Peripheral Aerobic Blood Culture - Preliminary No growth in 2 days 06/27/18 10:50 Blood - Peripheral Anaerobic Blood Culture - Preliminary No growth in 2 days 06/27/18 10:45 Blood - Peripheral Aerobic Blood Culture - Preliminary No growth in 2 days 06/27/18 10:45 Blood - Peripheral Anaerobic Blood Culture - Preliminary No growth in 2 days 06/27/18 16:55 Clean Catch Urine Urine Culture - Final No growth in 48 hours 06/25/18 12:25 Blood - Peripheral Aerobic Blood Culture - Final Pseudomonas aeruginosa 06/25/18 12:25 Blood - Peripheral Anaerobic Blood Culture - Final QNS - See aerobic report. Lab - Hematology Results 06/28/18 06/29/18 04:30 04:40 WBC 7.8 D 16.9 H RBC 5.01 4.79 Hgb 13.7 12.8 Hct 39.2 37.6 MCV 78.2 L 78.6 L MCH 27.3 26.8 L MCHC 35.0 34.1 RDW 19.4 H 19.8 H Plt Count 35 L D 17 L* D MPV 8.7 12.3 H Prelim Diff (Auto) Manual diff required WBC Differential Manual diff final Manual diff final Seg Neuts % (Manual) 75 H 82 H Band Neuts % (Manual) 7 H 10 H Lymphocytes % (Manual) 5 L 2 L Monocytes % (Manual) 6 4 Metamyelocytes % (Man) 7 H 1 Plasma Cell % (Manual) 1 H Abs Neuts (Manual) 6.9 15.7 H Differential Comment . . Toxic Granulation 2+ H 1+ H Toxic Vacuolation Present H Dohle Bodies Present H Present H Platelet Estimate Low L Rare L Platelet Morphology Normal Enlarged H Ovalocytes 1+ H Darwin Cells 2+ H 1+ H Acanthocytes (Spur) Occ H Keratocytes Occ H Lab - Chemistry Results 06/27/18 06/28/18 06/28/18 23:17 04:30 09:45 Sodium 145 Potassium 3.2 L D Chloride 118 H D Carbon Dioxide 13.9 L Anion Gap 13 BUN 60 H Creatinine 1.36 H Estimated GFR 38 L POC Glucose 157 H Random Glucose 341 H D Lactic Acid 3.1 H Calcium 6.8 L* Prot Corrected Calcium 7.9 L Phosphorus Magnesium 1.6 Total Bilirubin 1.0 AST 30 ALT 36 Alkaline Phosphatase 52 Total Protein 5.0 L Albumin 1.4 L 06/28/18 06/28/18 06/29/18 12:50 19:40 00:34 Sodium Potassium Chloride Carbon Dioxide Anion Gap BUN Creatinine Estimated GFR POC Glucose 202 H 300 H Random Glucose Lactic Acid Calcium Prot Corrected Calcium Phosphorus 1.0 L Magnesium Total Bilirubin AST ALT Alkaline Phosphatase Total Protein Albumin 06/29/18 06/29/18 06/29/18 04:40 06:34 09:20 Sodium Potassium 3.8 Chloride Carbon Dioxide Anion Gap BUN Creatinine 1.39 H Estimated GFR 37 L POC Glucose 230 H Random Glucose Lactic Acid Calcium Prot Corrected Calcium Phosphorus 2.8 D Magnesium Total Bilirubin AST ALT Alkaline Phosphatase Total Protein Albumin 06/29/18 06/29/18 10:50 19:17 Sodium Potassium Chloride Carbon Dioxide Anion Gap BUN Creatinine Estimated GFR POC Glucose 195 H Random Glucose Lactic Acid 2.3 H Calcium Prot Corrected Calcium Phosphorus Magnesium Total Bilirubin AST ALT Alkaline Phosphatase Total Protein Albumin Imaging: ITS Impressions Abdomen/Pelvis CT 06/28/18 00:00 CONCLUSION: 1. Colonic diverticula. 2. Persistent 4.6 cm left adnexal cystic mass. 3. Distended gallbladder. 4. Cortical calcic location seen at the left kidney with some cortical thinning. There are multiple left-sided renal masses likely related to cysts although they're nonspecific on this noncontrast CT examination. Chest CT 06/28/18 00:00 CONCLUSION: 1. Development of moderate bilateral pleural effusions being worse in the right. 2. Areas of consolidation or atelectasis at the posterior lower lungs. Given the effusions is likely represent areas of atelectasis. 3. Consolidation and bronchiectasis in the right upper lung. This was present on the prior exam. It appears to progress. 4. Distended esophagus throughout the chest. Head CT 06/28/18 00:00 CONCLUSION: Negative noncontrast head CT. . Venous Doppler Study 06/29/18 00:00 CONCLUSION: Mild nonocclusive thrombus in the right axillary vein to the brachial vein. Chest X-Ray 06/29/18 09:00 CONCLUSION: Diffuse consolidation likely related to diffuse processes such as edema or infection. Compared to the prior exam, the consolidation appears worse. Physical Exam: GENERAL: very lethargic, sedated intubated SKIN: Warm and dry. No rash HEAD: Atraumatic. Normocephalic. EYES: Pupils equal and round. No scleral icterus. No injection or drainage. ENT: No nasal bleeding or discharge. Mucous membranes very dry and crusted secretions in oropharynx is present NECK: Trachea midline. No JVD. + edema erythema of the neck CARDIOVASCULAR: Regular rate and rhythm. No murmurs RESPIRATORY: No accessory muscle use. Clear to auscultation. Breath sounds equal bilaterally. GASTROINTESTINAL: Abdomen soft, quite tender to palpation, no guardign, rebound + moderately distended. Hepatic and splenic margins not palpable. MUSCULOSKELETAL: Extremities without clubbing, + R index fingertip and R toes cyanosis, + edema. No obvious deformities. + non pitting RUE edema NEUROLOGICAL: lethargic, sedated. PSYCHIATRIC: unable to asseess Assessment and Plan - Plan Stage II anal canal carcinoma, undergoing XRT, chemo PSAE sepsis on presentation, source ? PICC vs - thompson S UTI Sepsis' C.diff colitis US RUE showed non occlusive thrombus cont meropenem Fu sensitivity of PSAE Flagyl IV cont oral vanco 500 cont Micafungin fu blood clx tonja RN
[2018-06-30] MEDS: Oral Hygiene Kit OROPHARYNG SCH ×4 (00:25→18:11)
[2018-06-30] MEDS: Insulin NovoLOG Aspart Correctional Sugar Inj SQ SCH ×4 (00:25→18:19)
[2018-06-30] MEDS: Albumin Human 25% Inj 100 ML IV.SIG SCH ×2 (04:38→16:45)
[2018-06-30] MEDS: Midazolam 50 MG/50 ML Inj 50 MG/50 ML BAG IV.CONT PRN ×2 (04:58→21:46)
[2018-06-30 06:05] LABS: Hematocrit 31.5 % (35.0-46.0); Hemoglobin 10.9 gm/dL (11.6-15.3); Mean Corpuscular HGB Conc 34.7 % (32.0-36.0); Mean Corpuscular Hemoglobin 26.6 pg (27.0-34.0); Mean Corpuscular Volume 76.6 fL (80.0-100.0); Mean Platelet Volume 11.7 fL (7.0-11.0); Red Blood Count 4.11 mil/mm3 (4.00-5.30); Red Cell Distribution Width 19.3 % (11.6-17.2)
[2018-06-30 06:18] LABS: Platelet Count 15 th/mm3 (150-450)
[2018-06-30] MEDS: Levothyroxine 50 MCG Tablet PO SCH (07:30)
[2018-06-30] MEDS: Chlorhexidine 0.12% Oral Kit 15 ML UDC OROPHARYNG SCH ×2 (08:27→20:08)
[2018-06-30 08:29] LABS: Blast Cells 1 % (0-0); Lymphocytes 3 % (9-44); Metamyelocytes 2 % (0-1); Monocytes 8 % (0-8); Myelocytes 4 % (0-0); Plasma Cells 1 % (0-0)
[2018-06-30 08:30] LABS: Acanthocytes 1+; Dohle Bodies Present; Ovalocytes 1+; Platelet Estimate Rare (Normal); Platelet Morphology Normal (Normal); Spherocytes Occ
[2018-06-30 08:50] LABS: Albumin 2.9 g/dL (3.4-5.0); Magnesium 1.8 mg/dL (1.5-2.5); Total Protein 5.1 g/dL (6.4-8.2)
[2018-06-30] MEDS ORDERED: Sodium Chloride 0.45 % Inj 1,000 ML IV.CONT SCH (10:00)
--- NOTE | 2018-06-30 10:05 | P.PNCC ---
Subjective Subjective Remarks/Hospital Course: 72-year-old female with past medical history of anorectal squamous cell carcinoma, mixed connective tissue disease (SLE, Reynaud's, Polymyositis), remote cervical cancer status post hysterectomy, hypothyroid . She originally developed anal pain and bleeding in January of 2018. She was referred to Dr. Coelho who performed biopsy of anal mass on 04/25/18 which demonstrated invasive squamous cell carcinoma. Outpatient PET reportedly showed no local or distant metastatic disease. She has been undergoing radiation therapy under the care of Dr Concepcion. Concurrent chemotherapy is planned for week 1 and 5 of radiation; and she completed first chemo cycle 06/13/18. She has reportedly been having loose watery stools for several days, difficult to determine exact time of onset. She has also had abdominal pain. When she presented for radiation treatment on 06/25, she was weak and hypotensive so she was sent to the ED. She was pancytopenic with ANC 768. CT abd/pelvis showed fluid filled small bowel c/ w partial SBO or ileus. She was admitted to hospitalist service. Blood cultures were obtained 09/25 which have now resulted + pseudomonas in 09/26 bottles. She was started on cefepime 2 gram IV and vancomycin per hematology. Tmax was 101.2 Infrastructure Director consult has been requested. She has a RUE PICC placed 06/09 which does not have overt clinical signs of infection, but will be removed. 06/27 Patient is lethargic on Amio drip ( HR now controlled) Afebrile. 06/28 patient lying on bed very lethargic remains on amiodarone infusion. Appears very critical. WBC count is improved to 7.8, platelet count of 35. BUN /creatinine further elevated at 66/1.36. Patient not to be weaker on the right upper and lower extremity-I do not see any history of CVA. Will check CT of the head stat. Patient is not a candidate for TPA due to severe thrombocytopenia, so will not initiate stroke alert. Breathing slightly labored 06/29: Clinically deteriorating very lethargic tachypneic. ABG shows significant hypoxia. Chest x-ray shows worsening bilateral infiltrates/edema. I had discussed with daughters yesterday they wanted to continue full code, patient is encephalopathy again unable to make any decisions at this time. Give additional 20 mg of IV Lasix and continue scheduled 20 mg twice daily. If not improving in the next 45-60 minutes will need endotracheal intubation 06/30: Severely septic lady who is intubated for severe respiratory failure on . Likely has acute lung injury from severe sepsis. FiO2 remains high at 65% to maintain sat above 90%. Chest x-ray is pending at this time WBC count 16 , sodium is 150, BUN 67 creatinine 1.3. Urine output adequate with Lasix Objective Vital Signs / I&O: Vital Signs 06/29/18 11:24 06/29/18 12:12 06/29/18 13:14 Temperature Pulse Rate 105 H Respiratory Rate 21 16 Blood Pressure Pulse Oximetry 95 95 06/29/18 13:45 06/29/18 14:00 06/29/18 14:15 Temperature 99.1 F 99.9 F H 99.7 F H Pulse Rate 117 H 119 H 119 H Respiratory Rate 16 16 16 Blood Pressure 120/72 120/73 120/71 Pulse Oximetry 94 L 94 L 95 06/29/18 14:30 06/29/18 14:45 06/29/18 15:00 Temperature 98.4 F 99.3 F 99.3 F Pulse Rate 119 H 119 H 118 H Respiratory Rate 16 16 16 Blood Pressure 118/72 120/75 117/73 Pulse Oximetry 95 95 95 06/29/18 15:15 06/29/18 15:30 06/29/18 15:45 Temperature 99.5 F 99.7 F H 99.9 F H Pulse Rate 118 H 118 H 118 H Respiratory Rate 17 20 20 Blood Pressure 120/73 120/74 122/74 Pulse Oximetry 95 94 L 95 06/29/18 15:58 06/29/18 16:00 06/29/18 16:09 Temperature 99 F 100.8 F H Pulse Rate 118 H 118 H 118 H Respiratory Rate 19 20 20 Blood Pressure 122/74 121/72 Pulse Oximetry 94 L 95 06/29/18 16:15 06/29/18 16:30 06/29/18 16:45 Temperature 100.6 F H 99.9 F H 99.7 F H Pulse Rate 118 H 122 H 121 H Respiratory Rate 19 21 19 Blood Pressure 113/67 113/67 114/67 Pulse Oximetry 95 94 L 94 L 06/29/18 17:00 06/29/18 17:15 06/29/18 17:30 Temperature 96.6 F L 98.6 F 99.0 F Pulse Rate 122 H 121 H 121 H Respiratory Rate 20 20 21 Blood Pressure 113/68 117/71 112/72 Pulse Oximetry 94 L 95 95 06/29/18 17:45 06/29/18 18:00 06/29/18 18:15 Temperature 99.0 F 98.8 F 99.3 F Pulse Rate 120 H 120 H 118 H Respiratory Rate 19 20 19 Blood Pressure 118/73 123/75 119/72 Pulse Oximetry 95 94 L 94 L 06/29/18 18:30 06/29/18 18:45 06/29/18 19:00 Temperature 99.5 F 99.5 F 98.2 F Pulse Rate 116 H 116 H 118 H Respiratory Rate 19 19 20 Blood Pressure 115/70 120/73 122/73 Pulse Oximetry 94 L 94 L 94 L 06/29/18 19:15 06/29/18 19:30 06/29/18 19:45 Temperature 98.4 F 98.6 F 99.0 F Pulse Rate 118 H 116 H 114 H Respiratory Rate 20 20 20 Blood Pressure 119/74 110/65 111/69 Pulse Oximetry 94 L 94 L 94 L 06/29/18 20:00 06/29/18 20:15 06/29/18 20:30 Temperature 99.0 F 99.0 F 99.3 F Pulse Rate 113 H 113 H 115 H Respiratory Rate 19 19 19 Blood Pressure 115/70 111/66 122/71 Pulse Oximetry 95 95 95 06/29/18 20:45 06/29/18 21:00 06/29/18 21:15 Temperature Pulse Rate 114 H 112 H 111 H Respiratory Rate 20 19 19 Blood Pressure 116/68 114/67 113/67 Pulse Oximetry 06/29/18 21:30 06/29/18 21:38 06/29/18 21:42 Temperature Pulse Rate 113 H 116 H Respiratory Rate 23 22 23 Blood Pressure 119/73 Pulse Oximetry 06/29/18 21:45 06/29/18 22:00 06/29/18 22:15 Temperature Pulse Rate 111 H 109 H 111 H Respiratory Rate 20 19 25 H Blood Pressure 116/72 116/69 109/66 Pulse Oximetry 94 L 95 06/29/18 22:30 06/29/18 22:45 06/29/18 23:00 Temperature Pulse Rate 108 H 108 H 109 H Respiratory Rate 19 21 20 Blood Pressure 109/64 105/63 120/68 Pulse Oximetry 95 95 95 06/29/18 23:15 06/29/18 23:30 06/29/18 23:45 Temperature Pulse Rate 107 H 111 H 107 H Respiratory Rate 20 23 20 Blood Pressure 111/63 123/73 117/70 Pulse Oximetry 95 95 95 06/30/18 00:00 06/30/18 00:15 06/30/18 00:30 Temperature 100.3 F H Pulse Rate 105 H 104 H 106 H Respiratory Rate 20 20 19 Blood Pressure 112/65 108/64 120/72 Pulse Oximetry 95 95 98 06/30/18 00:45 06/30/18 00:57 06/30/18 00:59 Temperature Pulse Rate 108 H 108 H Respiratory Rate 23 23 22 Blood Pressure 124/74 Pulse Oximetry 98 98 06/30/18 01:00 06/30/18 01:15 06/30/18 01:30 Temperature Pulse Rate 107 H 109 H 104 H Respiratory Rate 21 22 21 Blood Pressure 123/71 123/72 115/65 Pulse Oximetry 98 98 95 06/30/18 01:45 06/30/18 02:00 06/30/18 02:15 Temperature Pulse Rate 104 H 108 H 103 H Respiratory Rate 20 22 19 Blood Pressure 111/67 120/70 110/65 Pulse Oximetry 96 95 95 06/30/18 02:30 06/30/18 02:45 06/30/18 03:00 Temperature Pulse Rate 106 H 101 H 100 H Respiratory Rate 24 19 19 Blood Pressure 123/77 114/64 114/67 Pulse Oximetry 94 L 94 L 95 06/30/18 03:15 06/30/18 03:30 06/30/18 03:45 Temperature Pulse Rate 99 H 99 H 97 H Respiratory Rate 20 20 20 Blood Pressure 106/64 110/65 109/68 Pulse Oximetry 94 L 94 L 94 L 06/30/18 03:47 06/30/18 03:49 06/30/18 04:00 Temperature 98.5 F Pulse Rate 103 H 102 H Respiratory Rate 27 H 25 H 20 Blood Pressure 118/72 Pulse Oximetry 94 L 95 06/30/18 04:15 06/30/18 07:00 06/30/18 07:34 Temperature Pulse Rate 96 H 91 H Respiratory Rate 22 21 17 Blood Pressure 109/64 Pulse Oximetry 94 L 94 L 06/30/18 08:00 06/30/18 08:15 Temperature 97.8 F Pulse Rate 86 85 Respiratory Rate 19 20 Blood Pressure 119/73 116/75 Pulse Oximetry 95 93 L Intake & Output 06/29/18 06/30/18 06/30/18 18:59 06:59 18:59 Intake Total 1281 / 1281 2068.2 / 2068.2 100 / 100 Output Total 1650 / 1650 2600 / 2600 Balance -369 / -369 -531.8 / -531.8 100 / 100 Weight 59.5 kg Intake: IV 800 / 800 2068.2 / 2068.2 100 / 100 Cordarone Inj 450 MG In D5W Inj 250 / 250 250 / 250 241 ML @ 1 MG/MIN 33.33 mls/hr IV.CONT TITRATE PRN Rx#: [id number] Versed Inj 50 mg In 50 ml @ 2 50 / 50 MG/HR 2 mls/hr IV.CONT TITRATE PRN Rx#:[id number] Flexbumin 25% Inj 100 ML @ 60 100 / 100 100 / 100 100 / 100 mls/hr IV.SIG Q12H PABLO Rx#: [id number] Intralipid 20% Inj 250 ML @ 31. 250 / 250 250 / 250 25 mls/hr IV.SIG Q24H PABLO Rx#: [id number] Merrem Inj 1,000 MG In NS Inj 100 / 100 100 / 100 100 ML @ 200 mls/hr IV.SIG Q12H PABLO Rx#:[id number] Mycamine Inj 150 MG In NS Inj 100 / 100 100 ML @ 100 mls/hr IV.SIG Q24H PABLO Rx#:[id number] MVI-12 Inj 10 ML Folvite Inj 1 1018.2 / 1018.2 MG In Clinimix E 5%/D20W Inj 2, 000 ML @ 42.214 mls/hr IV.SIG Q24H PABLO Rx#:[id number] Flagyl 500 MG Inj 100 ML @ 100 100 / 100 200 / 200 mls/hr IV.SIG Q8H PABLO Rx#: [id number] Intake (Blood Product) Amt 481 / 481 Plt Pheresis C Leukored Pas 184 / 184 Unit [id number] Plt Pheresis S Leukoreduced 297 / 297 Unit [id number] Output: Urine Amount (Catheter) 1650 / 1650 2600 / 2600 Indwelling Urethral Catheter 1650 / 1650 2600 / 2600 Other: Date of Last Bowel Movement 06/27/18 06/30/18 06/30/18 # Bowel Movements 1 1 Result Diagrams: 06/30/18 05:23 06/30/18 08:00 Objective Remarks: GENERAL: Patient is 72 lying in bed ,Critically ill, intubated sedated SKIN: Warm and dry. HEAD: Normocephalic. EYES: No scleral icterus. No injection or drainage. Anemic ENT: Oral mucosa is dry. Orotracheally intubated NECK: Supple, trachea midline. No JVD or lymphadenopathy. CARDIOVASCULAR: Tachycardic rate and sinus rhythm without murmurs, gallops, or rubs. RESPIRATORY: On PRVC/AC, diffuse bilateral coarse crackles all over bilateral chest. No wheezes GASTROINTESTINAL: Abdomen soft, non-tender, nondistended. (Protruding anal mass reported by RN, exam deferred as patient is critical and hypoxic) MUSCULOSKELETAL: No cyanosis, or edema. Neuro: Intubated sedated moves extremities intermittently, did not follow commands. (Prior to intubation following commands 2 out of 5 power on the right upper and lower extremity, 4 out of 5 power on the left upper and lower extremity Assessment and Plan - Assessment and Plan Plan: NEURO: Acute metabolic encephalopathy secondary to sepsis Dilaudid prn pain. Versed for sedation and vent synchrony CT of the negative for acute findings Monitor neuro status closely RESP: Acute hypoxemic respiratory failure Pulmonary edema Acute lung injury Intubated and placed on mechanical ventilation 06/29/2018 due to progressive acute lung injury and severe hypoxemia Chest x-ray pending today Patient remains hypoxemic FiO2 at 65%. Increase PEEP to 8 to attempt wean FiO2 Continue bronchodilators CXR: Mild pulm edema on 06/26/2018, repeat chest x-ray 06/29 shows worsening bilateral infiltrates/edema CV: Hypotension secondary to volume depletion and sepsis. Atrial fibrillation with RVR s/p 2 L normal saline bolus and blood pressure normalized with MAP 70-77. Currently on IV Lasix 20 mg every 12 for pulmonary edema Levophed if needed to maintain MAP>65mmHg On Amio drip for Afib with RVR- now HR controlled. Continue TPN. Will request to adjust Na GI: C. difficile colitis Ileus Squamous cell carcinoma of the anus Moderate protein energy malnutrition NPO for bowel rest. Continue TPN CRS is following- Dr. Coelho If family after palliative care meeting wants to continue aggressive care may need to place OG tube FEN/RENAL: GREY Hypernatremia Monitor intake and output. Monitor electrolytes. Replace electrolytes as indicated per ICU electrolyte replacement protocol. Continue TPN. Will request to adjust Na IV Lasix as above ID: Pseudomonas bacteremia 06/25 Severe sepsis with probable GI source C Diff Continue abx- On Rneney5ox Q12 to cover Pseudomonas. On Vancomycin 500 mg p.o. every 6 hours and IV Flagyl for C. difficile Blood culture growing Pseudomonas. Removed PICC 06/26. HEME: Squamous cell carcinoma anorectal Pancytopenia On Neupogen per oncology. Neutropenia has resolved, thrombocytopenia persists SCC anus - s/p chemo completed 06/13. Radiation therapy on hold per Dr. Concepcion. Decadron 4 mg IV q6 hours . Monitor CBC, coags. Plt and blood product transfusion per heme ENDO: Acute hyperglycemia Monitor bedside glucose every 6 hours and initiate low-dose insulin sliding scale as indicated. On Synthroid 50 mcg daily PROPH: SCD for DVT prophylaxis. On Protonix 40mg Q12 for GI prophylaxis ACCESS: Removed right upper extremity PICC 06/26. L IJ CVL placed 06/26 Palliative care following Full code Patient is critically ill with severe sepsis, acute lung injury, gram-negative bacteremia and pancytopenia with multiorgan dysfunction. Now with worsening hypoxemic respiratory failure pulmonary edema and encephalopathy. Now on mechanical ventilation with severe hypoxemia. Await meeting with palliative care CCT 40 mins excluding procedures Code Status: Full
[2018-06-30] MEDS ORDERED: Acetaminophen 325 MG Tablet PO PRN (10:07)
--- NOTE | 2018-06-30 10:33 | XR ---
EXAM DATE: 06/30/2018 9:58 AM EDT AGE/SEX: 72 years / Female INDICATIONS: Shortness of breath. CLINICAL DATA: This is the patient's subsequent encounter. Patient reports that signs and symptoms h ave been present for 2 days and indicates a pain score of Nonresponsive. MEDICAL/SURGICAL HISTORY: Diverticulitis. Gastroesophageal reflux disease. Carcinoma, cervica l. Anemia. Hypothyroid, Mixed connective tissue disorder, Kidney stones Appendectomy. Hysterectomy . Breast biopsy lumpectomy, sigmoid polypectomy. COMPARISON: Chest x-ray 06/29/2018. FINDINGS: A single AP view of the chest demonstrates persistent parenchymal opacities within both upper lobes. These are mixed interstitial and intra-alveolar. No significant change from the prior study. No effus ions. Heart is normal in size. Tip of endotracheal tube 4 cm from the inderjit. Left-sided central line in good position. CONCLUSION: Unchanged bilateral infiltrates. Electronically signed by: William Reynolds MD 06/30/2018 10:32 AM EDT
[2018-06-30] MEDS ORDERED: Sodium Chlor 0.9% Inj 250 ML IV.SIG SCH (11:00)
--- NOTE | 2018-06-30 11:10 | P.PNONC ---
Subjective Interval history: T-max 100.3 F. Patient currently sedated and ventilated. Per RN, patient still with diarrhea which is now dark and tarry, suspicious for GI bleed. She will send for occult testing. She states palliative care has been consulted, as the patient has many children , some of which she does not believe have been notified of patient's current condition. She was given living will after the patient was intubated. Family needs assistance with goals and decision making. Objective Vital Signs/Intake & Output: Vital Signs 06/29/18 11:24 06/29/18 12:12 06/29/18 13:14 Temperature Pulse Rate 105 H Respiratory Rate 21 16 Blood Pressure Pulse Oximetry 95 95 06/29/18 13:45 06/29/18 14:00 06/29/18 14:15 Temperature 99.1 F 99.9 F H 99.7 F H Pulse Rate 117 H 119 H 119 H Respiratory Rate 16 16 16 Blood Pressure 120/72 120/73 120/71 Pulse Oximetry 94 L 94 L 95 06/29/18 14:30 06/29/18 14:45 06/29/18 15:00 Temperature 98.4 F 99.3 F 99.3 F Pulse Rate 119 H 119 H 118 H Respiratory Rate 16 16 16 Blood Pressure 118/72 120/75 117/73 Pulse Oximetry 95 95 95 06/29/18 15:15 06/29/18 15:30 06/29/18 15:45 Temperature 99.5 F 99.7 F H 99.9 F H Pulse Rate 118 H 118 H 118 H Respiratory Rate 17 20 20 Blood Pressure 120/73 120/74 122/74 Pulse Oximetry 95 94 L 95 06/29/18 15:58 06/29/18 16:00 06/29/18 16:09 Temperature 99 F 100.8 F H Pulse Rate 118 H 118 H 118 H Respiratory Rate 19 20 20 Blood Pressure 122/74 121/72 Pulse Oximetry 94 L 95 06/29/18 16:15 06/29/18 16:30 06/29/18 16:45 Temperature 100.6 F H 99.9 F H 99.7 F H Pulse Rate 118 H 122 H 121 H Respiratory Rate 19 21 19 Blood Pressure 113/67 113/67 114/67 Pulse Oximetry 95 94 L 94 L 06/29/18 17:00 06/29/18 17:15 06/29/18 17:30 Temperature 96.6 F L 98.6 F 99.0 F Pulse Rate 122 H 121 H 121 H Respiratory Rate 20 20 21 Blood Pressure 113/68 117/71 112/72 Pulse Oximetry 94 L 95 95 06/29/18 17:45 06/29/18 18:00 06/29/18 18:15 Temperature 99.0 F 98.8 F 99.3 F Pulse Rate 120 H 120 H 118 H Respiratory Rate 19 20 19 Blood Pressure 118/73 123/75 119/72 Pulse Oximetry 95 94 L 94 L 06/29/18 18:30 06/29/18 18:45 06/29/18 19:00 Temperature 99.5 F 99.5 F 98.2 F Pulse Rate 116 H 116 H 118 H Respiratory Rate 19 19 20 Blood Pressure 115/70 120/73 122/73 Pulse Oximetry 94 L 94 L 94 L 06/29/18 19:15 06/29/18 19:30 06/29/18 19:45 Temperature 98.4 F 98.6 F 99.0 F Pulse Rate 118 H 116 H 114 H Respiratory Rate 20 20 20 Blood Pressure 119/74 110/65 111/69 Pulse Oximetry 94 L 94 L 94 L 06/29/18 20:00 06/29/18 20:15 06/29/18 20:30 Temperature 99.0 F 99.0 F 99.3 F Pulse Rate 113 H 113 H 115 H Respiratory Rate 19 19 19 Blood Pressure 115/70 111/66 122/71 Pulse Oximetry 95 95 95 06/29/18 20:45 06/29/18 21:00 06/29/18 21:15 Temperature Pulse Rate 114 H 112 H 111 H Respiratory Rate 20 19 19 Blood Pressure 116/68 114/67 113/67 Pulse Oximetry 06/29/18 21:30 06/29/18 21:38 06/29/18 21:42 Temperature Pulse Rate 113 H 116 H Respiratory Rate 23 22 23 Blood Pressure 119/73 Pulse Oximetry 06/29/18 21:45 06/29/18 22:00 06/29/18 22:15 Temperature Pulse Rate 111 H 109 H 111 H Respiratory Rate 20 19 25 H Blood Pressure 116/72 116/69 109/66 Pulse Oximetry 94 L 95 06/29/18 22:30 06/29/18 22:45 06/29/18 23:00 Temperature Pulse Rate 108 H 108 H 109 H Respiratory Rate 19 21 20 Blood Pressure 109/64 105/63 120/68 Pulse Oximetry 95 95 95 06/29/18 23:15 06/29/18 23:30 06/29/18 23:45 Temperature Pulse Rate 107 H 111 H 107 H Respiratory Rate 20 23 20 Blood Pressure 111/63 123/73 117/70 Pulse Oximetry 95 95 95 06/30/18 00:00 06/30/18 00:15 06/30/18 00:30 Temperature 100.3 F H Pulse Rate 105 H 104 H 106 H Respiratory Rate 20 20 19 Blood Pressure 112/65 108/64 120/72 Pulse Oximetry 95 95 98 06/30/18 00:45 06/30/18 00:57 06/30/18 00:59 Temperature Pulse Rate 108 H 108 H Respiratory Rate 23 23 22 Blood Pressure 124/74 Pulse Oximetry 98 98 06/30/18 01:00 06/30/18 01:15 06/30/18 01:30 Temperature Pulse Rate 107 H 109 H 104 H Respiratory Rate 21 22 21 Blood Pressure 123/71 123/72 115/65 Pulse Oximetry 98 98 95 06/30/18 01:45 06/30/18 02:00 06/30/18 02:15 Temperature Pulse Rate 104 H 108 H 103 H Respiratory Rate 20 22 19 Blood Pressure 111/67 120/70 110/65 Pulse Oximetry 96 95 95 06/30/18 02:30 06/30/18 02:45 06/30/18 03:00 Temperature Pulse Rate 106 H 101 H 100 H Respiratory Rate 24 19 19 Blood Pressure 123/77 114/64 114/67 Pulse Oximetry 94 L 94 L 95 06/30/18 03:15 06/30/18 03:30 06/30/18 03:45 Temperature Pulse Rate 99 H 99 H 97 H Respiratory Rate 20 20 20 Blood Pressure 106/64 110/65 109/68 Pulse Oximetry 94 L 94 L 94 L 06/30/18 03:47 06/30/18 03:49 06/30/18 04:00 Temperature 98.5 F Pulse Rate 103 H 102 H Respiratory Rate 27 H 25 H 20 Blood Pressure 118/72 Pulse Oximetry 94 L 95 06/30/18 04:15 06/30/18 07:00 06/30/18 07:34 Temperature Pulse Rate 96 H 91 H Respiratory Rate 22 21 17 Blood Pressure 109/64 Pulse Oximetry 94 L 94 L 06/30/18 08:00 06/30/18 08:15 06/30/18 10:36 Temperature 97.8 F Pulse Rate 86 85 87 Respiratory Rate 19 20 22 Blood Pressure 119/73 116/75 Pulse Oximetry 95 93 L 06/30/18 10:37 Temperature Pulse Rate Respiratory Rate 22 Blood Pressure Pulse Oximetry 98 Intake & Output 06/29/18 06/30/18 06/30/18 18:59 06:59 18:59 Intake Total 1281 / 1281 2068.2 / 2068.2 100 / 100 Output Total 1650 / 1650 2600 / 2600 Balance -369 / -369 -531.8 / -531.8 100 / 100 Weight 59.5 kg Intake: IV 800 / 800 2068.2 / 2068.2 100 / 100 Cordarone Inj 450 MG In D5W Inj 250 / 250 250 / 250 241 ML @ 1 MG/MIN 33.33 mls/hr IV.CONT TITRATE PRN Rx#: [id number] Versed Inj 50 mg In 50 ml @ 2 50 / 50 MG/HR 2 mls/hr IV.CONT TITRATE PRN Rx#:[id number] Flexbumin 25% Inj 100 ML @ 60 100 / 100 100 / 100 100 / 100 mls/hr IV.SIG Q12H FERN Rx#: [id number] Intralipid 20% Inj 250 ML @ 31. 250 / 250 250 / 250 25 mls/hr IV.SIG Q24H FERN Rx#: [id number] Merrem Inj 1,000 MG In NS Inj 100 / 100 100 / 100 100 ML @ 200 mls/hr IV.SIG Q12H FERN Rx#:[id number] Mycamine Inj 150 MG In NS Inj 100 / 100 100 ML @ 100 mls/hr IV.SIG Q24H FERN Rx#:[id number] MVI-12 Inj 10 ML Folvite Inj 1 1018.2 / 1018.2 MG In Clinimix E 5%/D20W Inj 2, 000 ML @ 42.214 mls/hr IV.SIG Q24H FERN Rx#:[id number] Flagyl 500 MG Inj 100 ML @ 100 100 / 100 200 / 200 mls/hr IV.SIG Q8H FERN Rx#: [id number] Intake (Blood Product) Amt 481 / 481 Plt Pheresis C Leukored Pas 184 / 184 Unit [id number] Plt Pheresis S Leukoreduced 297 / 297 Unit [id number] Output: Urine Amount (Catheter) 1650 / 1650 2600 / 2600 Indwelling Urethral Catheter 1650 / 1650 2600 / 2600 Other: Date of Last Bowel Movement 06/27/18 06/30/18 06/30/18 # Bowel Movements 1 1 Result Diagrams: 06/30/18 05:23 06/30/18 08:00 Laboratory Results: Laboratory Results - last 24 hr 06/29/18 06/29/18 06/29/18 09:20 10:50 12:23 WBC RBC Hgb Hct MCV MCH MCHC RDW Plt Count MPV Prelim Diff (Auto) WBC Differential Seg Neuts % (Manual) Band Neuts % (Manual) Lymphocytes % (Manual) Monocytes % (Manual) Metamyelocytes % (Man) Myelocytes % (Man) Blast Cells % (Manual) Plasma Cell % (Manual) Abs Neuts (Manual) Differential Comment Dohle Bodies Platelet Estimate Platelet Morphology Spherocytes Ovalocytes Acanthocytes (Spur) Keratocytes Puncture Site Patient Temperature O2 Saturation ABG pH ABG pCO2 ABG pO2 ABG HCO3 ABG O2 Content ABG Base Excess ABG Methemoglobin Flako Test Hemoglobin Carboxyhemoglobin O2 Delivery Device Vent Setting Inspired O2 Critical Value Sodium Potassium 3.8 Chloride Carbon Dioxide Anion Gap BUN Creatinine Estimated GFR POC Glucose Random Glucose Lactic Acid 2.3 H Calcium Prot Corrected Calcium Phosphorus 2.8 D Magnesium Total Bilirubin AST ALT Alkaline Phosphatase Total Protein Albumin Bld Prod Order Comment 06/29/18 06/29/18 06/29/18 14:15 19:17 23:35 WBC RBC Hgb Hct MCV MCH MCHC RDW Plt Count MPV Prelim Diff (Auto) WBC Differential Seg Neuts % (Manual) Band Neuts % (Manual) Lymphocytes % (Manual) Monocytes % (Manual) Metamyelocytes % (Man) Myelocytes % (Man) Blast Cells % (Manual) Plasma Cell % (Manual) Abs Neuts (Manual) Differential Comment Dohle Bodies Platelet Estimate Platelet Morphology Spherocytes Ovalocytes Acanthocytes (Spur) Keratocytes Puncture Site Right radial Patient Temperature 98.6 O2 Saturation 96 ABG pH 7.29 L* ABG pCO2 46 H ABG pO2 154 H ABG HCO3 21 L ABG O2 Content 18.3 ABG Base Excess -4.1 L ABG Methemoglobin 1.9 Flako Test Present Hemoglobin 13.4 Carboxyhemoglobin 0.4 O2 Delivery Device Ventilator Vent Setting Prvc/ac Inspired O2 70 Critical Value Yes Sodium Potassium Chloride Carbon Dioxide Anion Gap BUN Creatinine Estimated GFR POC Glucose 195 H 253 H Random Glucose Lactic Acid Calcium Prot Corrected Calcium Phosphorus Magnesium Total Bilirubin AST ALT Alkaline Phosphatase Total Protein Albumin Bld Prod Order Comment 06/30/18 06/30/18 06/30/18 05:23 05:23 05:43 WBC 16.0 H RBC 4.11 Hgb 10.9 L Hct 31.5 L MCV 76.6 L MCH 26.6 L MCHC 34.7 RDW 19.3 H Plt Count 15 L* MPV 11.7 H Prelim Diff (Auto) Manual diff required WBC Differential Manual diff final Seg Neuts % (Manual) 62 Band Neuts % (Manual) 19 H Lymphocytes % (Manual) 3 L Monocytes % (Manual) 8 Metamyelocytes % (Man) 2 H Myelocytes % (Man) 4 H Blast Cells % (Manual) 1 H Plasma Cell % (Manual) 1 H Abs Neuts (Manual) 13.9 H Differential Comment . Dohle Bodies Present H Platelet Estimate Rare L Platelet Morphology Normal Spherocytes Occ H Ovalocytes 1+ H Acanthocytes (Spur) 1+ H Keratocytes Occ H Puncture Site Patient Temperature O2 Saturation ABG pH ABG pCO2 ABG pO2 ABG HCO3 ABG O2 Content ABG Base Excess ABG Methemoglobin Flako Test Hemoglobin Carboxyhemoglobin O2 Delivery Device Vent Setting Inspired O2 Critical Value Sodium Potassium Chloride Carbon Dioxide Anion Gap BUN Creatinine Estimated GFR POC Glucose 209 H Random Glucose Lactic Acid Calcium Prot Corrected Calcium Phosphorus Magnesium 1.7 Total Bilirubin AST ALT Alkaline Phosphatase Total Protein Albumin Bld Prod Order Comment 06/30/18 06/30/18 06/30/18 08:00 08:00 08:00 WBC RBC Hgb Hct MCV MCH MCHC RDW Plt Count MPV Prelim Diff (Auto) WBC Differential Seg Neuts % (Manual) Band Neuts % (Manual) Lymphocytes % (Manual) Monocytes % (Manual) Metamyelocytes % (Man) Myelocytes % (Man) Blast Cells % (Manual) Plasma Cell % (Manual) Abs Neuts (Manual) Differential Comment Dohle Bodies Platelet Estimate Platelet Morphology Spherocytes Ovalocytes Acanthocytes (Spur) Keratocytes Puncture Site Patient Temperature O2 Saturation ABG pH ABG pCO2 ABG pO2 ABG HCO3 ABG O2 Content ABG Base Excess ABG Methemoglobin Flako Test Hemoglobin Carboxyhemoglobin O2 Delivery Device Vent Setting Inspired O2 Critical Value Sodium 151 H Potassium 3.0 L D Chloride 119 H Carbon Dioxide 27.0 Anion Gap 5 BUN 67 H Creatinine 1.28 H Estimated GFR 41 L POC Glucose Random Glucose 205 H Lactic Acid 2.0 Calcium 7.0 L* Prot Corrected Calcium 8.1 L Phosphorus 2.9 Magnesium 1.8 Total Bilirubin 1.1 H AST 43 H ALT 35 Alkaline Phosphatase 68 Total Protein 5.1 L Albumin 2.9 L Bld Prod Order Comment 06/30/18 10:07 WBC RBC Hgb Hct MCV MCH MCHC RDW Plt Count MPV Prelim Diff (Auto) WBC Differential Seg Neuts % (Manual) Band Neuts % (Manual) Lymphocytes % (Manual) Monocytes % (Manual) Metamyelocytes % (Man) Myelocytes % (Man) Blast Cells % (Manual) Plasma Cell % (Manual) Abs Neuts (Manual) Differential Comment Dohle Bodies Platelet Estimate Platelet Morphology Spherocytes Ovalocytes Acanthocytes (Spur) Keratocytes Puncture Site Patient Temperature O2 Saturation ABG pH ABG pCO2 ABG pO2 ABG HCO3 ABG O2 Content ABG Base Excess ABG Methemoglobin Flako Test Hemoglobin Carboxyhemoglobin O2 Delivery Device Vent Setting Inspired O2 Critical Value Sodium Potassium Chloride Carbon Dioxide Anion Gap BUN Creatinine Estimated GFR POC Glucose Random Glucose Lactic Acid Calcium Prot Corrected Calcium Phosphorus Magnesium Total Bilirubin AST ALT Alkaline Phosphatase Total Protein Albumin Bld Prod Order Comment Culture Results: Microbiology 06/27/18 10:50 Aerobic Blood Culture - Preliminary Blood - Peripheral No growth in 3 days Anaerobic Blood Culture - Preliminary No growth in 3 days 06/27/18 10:45 Aerobic Blood Culture - Preliminary Blood - Peripheral No growth in 3 days Anaerobic Blood Culture - Preliminary No growth in 3 days 06/25/18 12:10 Aerobic Blood Culture - Preliminary Blood - Peripheral Anaerobic Blood Culture - Final QNS - See aerobic report. 06/27/18 16:55 Urine Culture - Final Clean Catch Urine No growth in 48 hours 06/25/18 12:25 Aerobic Blood Culture - Final Blood - Peripheral Pseudomonas aeruginosa Anaerobic Blood Culture - Final QNS - See aerobic report. Imaging Studies: Impressions Chest X-Ray 06/29/18 00:00 CONCLUSION: ET tube and left internal jugular central line in good position. Diffuse mixed interstitial and alveolar consolidation likely related to diffuse processes such as edema or diffuse infection. The lungs appear unchanged from the prior exam. Chest X-Ray 06/30/18 09:58 CONCLUSION: Unchanged bilateral infiltrates. Medications: Active Medications Generic Name Dose Route Start Last Admin Trade Name Freq PRN Reason Stop Dose Admin Albuterol 1 ampul 06/27/18 12:00 06/30/18 10:36 Duoneb Neb (Fern) NEB 1 ampul Q4HR NEB FERN Administration Chlorhexidine Gluconate 15 ml 06/29/18 20:00 06/30/18 08:27 Peridex 0.12% Oral Kit OROPHARYNG 15 ml BID@0800,2000 FERN Administration Furosemide 20 mg 06/28/18 18:00 06/29/18 19:05 Lasix Inj IV.PUSH 20 mg BID@0900,1800 FERN Administration Hydromorphone HCl 0.5 mg 06/26/18 14:00 06/29/18 06:30 Dilaudid Pf Inj IV.PUSH 0.5 mg Q3H PRN Administration PAIN 3-10 Meropenem 1,000 mg/ Sodium 100 mls @ 200 mls/hr 06/26/18 21:00 06/30/18 00:21 Chloride IV.SIG Infused Q12H FERN Infusion Amiodarone HCl 450 mg/ 250 mls @ 33.33 mls/hr 06/27/18 04:37 06/30/18 01:15 Dextrose IV.CONT 0.5 mg/min TITRATE PRN 16.66 mls/hr Per Protocol Administration Protocol 1 MG/MIN Multivitamins 10 ml/ Folic 2,010.2 mls @ 42.214 mls/hr 06/27/18 20:00 20:32 Acid 1 mg/ Amino Acids/ IV.SIG 42.21 mls/hr Electrolytes Q24H FERN Administration Fat Emulsion Intravenous 250 mls @ 31.25 mls/hr 06/27/18 20:00 06/30/18 04:47 Intralipid 20% Inj IV.SIG Infused Q24H FERN Infusion Potassium Phosphate 30 mmol/ 260 mls @ 42 mls/hr 06/28/18 13:34 06/29/18 03: 13 Sodium Chloride IV.SIG Infused UNSCH PRN Infusion SEE LABEL COMMENTS Albumin Human 100 mls @ 60 mls/hr 06/28/18 16:00 06/30/18 07:34 Flexbumin 25% Inj IV.SIG Infused Q12H FERN Infusion Metronidazole/Sodium Chloride 100 mls @ 100 mls/hr 06/28/18 17:00 06/30/18 01 :39 Flagyl 500 Mg Inj IV.SIG Infused Q8H FERN Infusion Micafungin Sodium 150 mg/ 100 mls @ 100 mls/hr 06/28/18 18:00 06/30/18 00:21 Sodium Chloride IV.SIG Infused Q24H FERN Infusion Midazolam HCl 50 mg in 50 mls @ 2 mls/hr 06/29/18 12:23 06/30/18 04:58 Versed Inj IV.CONT 2 mg/hr TITRATE PRN 2 mls/hr Per Protocol Administration Protocol 2 MG/HR Insulin Aspart 0 unit 06/27/18 12:00 06/30/18 07:29 Novolog Insulin Correctional Sugar Inj SQ 3 unit Q6HR FERN Administration Protocol Levothyroxine Sodium 50 mcg 06/26/18 06:00 06/30/18 07:30 Synthroid PO Not Given DAILY@0600 [facility] Miscellaneous Medication 1 each 06/29/18 16:00 06/30/18 04:38 OROPHARYNG 1 each 0000,0400,1200,1600 FERN Administration Ondansetron HCl 4 mg 06/26/18 04:31 06/27/18 14:12 Zofran Inj IV.PUSH 4 mg Q6H PRN Administration NAUSEA OR VOMITING Pantoprazole Sodium 40 mg 06/25/18 16:00 06/29/18 20:35 Protonix Inj IV.PUSH 40 mg Q12HR FERN Administration Potassium Chloride 20 meq 06/28/18 21:00 06/29/18 20:34 Kcl Powder NG/OG Not Given BID FERN Sodium Chloride 2 ml 06/27/18 21:00 06/29/18 20:35 Ns Flush IV.FLUSH 2 ml BID FERN Administration Sodium Chloride 2 ml 06/27/18 10:30 06/28/18 06:02 Ns Flush IV.FLUSH 2 ml PRN PRN Administration FLUSH AFTER USING IV ACCESS Vancomycin HCl 500 mg 06/28/18 16:16 06/29/18 20:35 Vancomycin Po PO Not Given QID FERN Objective Remarks: GENERAL: Critically ill appearing female patient. Ventilated and sedated. SKIN: Pale, warm and dry. HEAD: Normocephalic. EYES: No scleral icterus. No injection or drainage. NECK: Supple, trachea midline. CARDIOVASCULAR: +S1/S2. RESPIRATORY: Breath sounds equal bilaterally. FiO2 55%. GASTROINTESTINAL: Abdomen soft, non-tender, nondistended. EXTREMITIES: No cyanosis. Trace edema. MUSCULOSKELETAL: Adequate muscle tone. NEUROLOGICAL: Intubated and sedated. Assessment/Plan - Plan Ms. 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 She had received 5 days of chemotherapy, completed on 06/13/2018. She is currently receiving radiation therapy which started on she was admitted for acute renal failure related to dehydration, intractable diarrhea from radiation chemotherapy. Plan: 1. The patient continues to deteriorate. 2. Continue antibiotics per infectious disease. 3. Nonocclusive thrombus from previous PICC line. 4. Platelet count low at 15,000 today. I have ordered 1 unit platelets to be given today, patient will possibly need NG tube placed today. 5. Tarry stool, suspicious for GI bleed. We will order Hemoccult stool. Discussed with RN, she will send sample. 6. Condition very poor at this time. Palliative care has been consulted. - Attending Statement The exam, history, and the medical decision-making described in the above note were completed with the assistance of the mid-level provider. I reviewed and agree with the findings presented. I attest that I had a [id number] encounter with the patient on the same day, and personally performed and documented my assessment and findings in the medical record. Events of the weekend noted Patient is now on the ventilator and sedated. Still has severe diarrhea and are black in color. Suspect GI bleeding Give platelet transfusion because of the GI bleeding to keep it around 50,000 Antibiotics per ID. She is on meropenem, IV Flagyl, micafungin. Oral vancomycin is on hold. Unable to place NG tube due to possible GI bleeding Continue TPN support Patient has responded to IV Lasix and making good amount of urine White count is high, Neupogen was stopped a few days ago. Abdomen is soft and not distended Palliative care have discussed with the patient's family I have extensive discussion with the patient's 2 daughter at the bedside. Patient has a living well. She does not want to continue to be on life support if she has terminal condition or on prolonged ventilatory support. Both daughters wants to give her a few more days to see if she can recover by this Saturday. If she continues to deteriorate then they will consider withdrawal of life support. I support their decision to give few more days to see if she could recover by this Saturday Discussed with patient's RN
--- NOTE | 2018-06-30 12:22 | P.PNCS ---
Subjective Interval history: Initially presented with leukopenic sepsis and diarrhea with ileus appearing SB. Pseudomonas in blood. Now with respiratory failure and C. Diff. But seems to have stabilized over last 24 hrs. Objective Result Diagrams: 06/30/18 05:23 06/30/18 08:00 Objective Remarks: Intubated and sedated Abd: no distention and soft Assessment and Plan - Assessment (1) Squamous cell carcinoma of anal canal Code(s): C21.1 - Malignant neoplasm of anal canal Status: Acute (2) Diarrhea Code(s): R19.7 - Diarrhea, unspecified Status: Acute - Plan Care per Critical Care Medicine/Oncology Discussed with family grave condition D/W Palliative Care-They are planning to speak with family as well.
--- NOTE | 2018-06-30 12:53 | P.PNPAL ---
Reason for Visit Reason for visit: a. To assist with evaluation and management of symptoms including: pain, debility b. To assist medical decision maker(s) with: better understanding of current medical conditions; weighing benefits/burdens of medical treatment options; making medical treatment decisions. Subjective Subjective/Interval History: Pt seen today to follow up on comfort, goals. 06/29 pt with worsening resp status, CXR worsening. Pt intubated by critical care. Initially requiring 65% fio2 to maintain O2 sats, today down to 55%. + diarrhea over weekend, stool + c.diff. BC no growth x2 day 1 set, other set + pseudomonas. On Vanco PO, flagyl, Merepenem per ID. WBC trending up, 16. H&H 10.9,31.5, platelets 31.5. + some weakness reported over weekend, heat CT negative for acute process. D/w colorectal surgery, primary RN. Pt seen in room, dual visit w Terry Harris APRN. She is on light sedation, on mech vent. Non responsive to exam. L pupil > Rt. No apparent distress. On versed 2mg hr. RN notifies palliative that family brought advanced directives and has had questions RE possible vent removal etc. RN will notify palliative when daughters arrive. Review living will, standard verbiage requesting no artificial measures in presence of end stage or terminal or vegetative conditions. Designates dtr Harper as primary HCS, daughter Kristal as alternate. Awaiting daughters arrival for family meeting. later discussed fam meeting w primary RN. Family/Friend Interactions: family arrived- 2 daughters, pt brother, son in law dual meeting with Huy Harris APRN Updated on current assessment, recent diagnostics, review weekend events including intubation, cdiff positive etc. Review pt w multiple complicated medical issues, and high risk for ongoing compilations, and prolonged hospital course. Review that this may result that she is too debilitated for future chemo , likely she would require rehab post acute hospitalization. Review of pt living will document. Family tearful at times. They appear to have reasonable understanding of conditions, prognosis. They indicate that patient's may not want to be sustained on life support will not make significant recovery. We did review resuscitation status. For now they wish she would remain full code including cardiac resuscitation. They would like to give her a few days to monitor for signs of improvement or worsening. In the event that she experience worsening they would likely want remove life support they would like to give the patient until Saturday and then reevaluate continued aggressive measures versus de-escalation of treatment. We did briefly and comfort option. All questions answered, they have palliative contact information. Advance Directives Documented care wishes:: Patient's daughters state that she has a documented living will and will provide us with this paperwork. Objective Vital Signs: Vital Signs 06/29/18 13:14 06/29/18 13:45 06/29/18 14:00 Temperature 99.1 F 99.9 F H Pulse Rate 117 H 119 H Respiratory Rate 16 16 Blood Pressure 120/72 120/73 Pulse Oximetry 95 94 L 94 L 06/29/18 14:15 06/29/18 14:30 06/29/18 14:45 Temperature 99.7 F H 98.4 F 99.3 F Pulse Rate 119 H 119 H 119 H Respiratory Rate 16 16 16 Blood Pressure 120/71 118/72 120/75 Pulse Oximetry 95 95 95 06/29/18 15:00 06/29/18 15:15 06/29/18 15:30 Temperature 99.3 F 99.5 F 99.7 F H Pulse Rate 118 H 118 H 118 H Respiratory Rate 16 17 20 Blood Pressure 117/73 120/73 120/74 Pulse Oximetry 95 95 94 L 06/29/18 15:45 06/29/18 15:58 06/29/18 16:00 Temperature 99.9 F H 99 F 100.8 F H Pulse Rate 118 H 118 H 118 H Respiratory Rate 20 19 20 Blood Pressure 122/74 122/74 121/72 Pulse Oximetry 95 94 L 06/29/18 16:09 06/29/18 16:15 06/29/18 16:30 Temperature 100.6 F H 99.9 F H Pulse Rate 118 H 118 H 122 H Respiratory Rate 20 19 21 Blood Pressure 113/67 113/67 Pulse Oximetry 95 95 94 L 06/29/18 16:45 06/29/18 17:00 06/29/18 17:15 Temperature 99.7 F H 96.6 F L 98.6 F Pulse Rate 121 H 122 H 121 H Respiratory Rate 19 20 20 Blood Pressure 114/67 113/68 117/71 Pulse Oximetry 94 L 94 L 95 06/29/18 17:30 06/29/18 17:45 06/29/18 18:00 Temperature 99.0 F 99.0 F 98.8 F Pulse Rate 121 H 120 H 120 H Respiratory Rate 21 19 20 Blood Pressure 112/72 118/73 123/75 Pulse Oximetry 95 95 94 L 06/29/18 18:15 06/29/18 18:30 06/29/18 18:45 Temperature 99.3 F 99.5 F 99.5 F Pulse Rate 118 H 116 H 116 H Respiratory Rate 19 19 19 Blood Pressure 119/72 115/70 120/73 Pulse Oximetry 94 L 94 L 94 L 06/29/18 19:00 06/29/18 19:15 06/29/18 19:30 Temperature 98.2 F 98.4 F 98.6 F Pulse Rate 118 H 118 H 116 H Respiratory Rate 20 20 20 Blood Pressure 122/73 119/74 110/65 Pulse Oximetry 94 L 94 L 94 L 06/29/18 19:45 06/29/18 20:00 06/29/18 20:15 Temperature 99.0 F 99.0 F 99.0 F Pulse Rate 114 H 113 H 113 H Respiratory Rate 20 19 19 Blood Pressure 111/69 115/70 111/66 Pulse Oximetry 94 L 95 95 06/29/18 20:30 06/29/18 20:45 06/29/18 21:00 Temperature 99.3 F Pulse Rate 115 H 114 H 112 H Respiratory Rate 19 20 19 Blood Pressure 122/71 116/68 114/67 Pulse Oximetry 95 06/29/18 21:15 06/29/18 21:30 06/29/18 21:38 Temperature Pulse Rate 111 H 113 H Respiratory Rate 19 23 22 Blood Pressure 113/67 119/73 Pulse Oximetry 06/29/18 21:42 06/29/18 21:45 06/29/18 22:00 Temperature Pulse Rate 116 H 111 H 109 H Respiratory Rate 23 20 19 Blood Pressure 116/72 116/69 Pulse Oximetry 94 L 06/29/18 22:15 06/29/18 22:30 06/29/18 22:45 Temperature Pulse Rate 111 H 108 H 108 H Respiratory Rate 25 H 19 21 Blood Pressure 109/66 109/64 105/63 Pulse Oximetry 95 95 95 06/29/18 23:00 06/29/18 23:15 06/29/18 23:30 Temperature Pulse Rate 109 H 107 H 111 H Respiratory Rate 20 20 23 Blood Pressure 120/68 111/63 123/73 Pulse Oximetry 95 95 95 06/29/18 23:45 06/30/18 00:00 06/30/18 00:15 Temperature 100.3 F H Pulse Rate 107 H 105 H 104 H Respiratory Rate 20 20 20 Blood Pressure 117/70 112/65 108/64 Pulse Oximetry 95 95 95 06/30/18 00:30 06/30/18 00:45 06/30/18 00:57 Temperature Pulse Rate 106 H 108 H Respiratory Rate 19 23 23 Blood Pressure 120/72 124/74 Pulse Oximetry 98 98 98 06/30/18 00:59 06/30/18 01:00 06/30/18 01:15 Temperature Pulse Rate 108 H 107 H 109 H Respiratory Rate 22 21 22 Blood Pressure 123/71 123/72 Pulse Oximetry 98 98 06/30/18 01:30 06/30/18 01:45 06/30/18 02:00 Temperature Pulse Rate 104 H 104 H 108 H Respiratory Rate 21 20 22 Blood Pressure 115/65 111/67 120/70 Pulse Oximetry 95 96 95 06/30/18 02:15 06/30/18 02:30 06/30/18 02:45 Temperature Pulse Rate 103 H 106 H 101 H Respiratory Rate 19 24 19 Blood Pressure 110/65 123/77 114/64 Pulse Oximetry 95 94 L 94 L 06/30/18 03:00 06/30/18 03:15 06/30/18 03:30 Temperature Pulse Rate 100 H 99 H 99 H Respiratory Rate 19 20 20 Blood Pressure 114/67 106/64 110/65 Pulse Oximetry 95 94 L 94 L 06/30/18 03:45 06/30/18 03:47 06/30/18 03:49 Temperature Pulse Rate 97 H 103 H Respiratory Rate 20 27 H 25 H Blood Pressure 109/68 Pulse Oximetry 94 L 94 L 06/30/18 04:00 06/30/18 04:15 06/30/18 07:00 Temperature 98.5 F Pulse Rate 102 H 96 H 91 H Respiratory Rate 20 22 21 Blood Pressure 118/72 109/64 Pulse Oximetry 95 94 L 06/30/18 07:34 06/30/18 08:00 06/30/18 08:15 Temperature 97.8 F Pulse Rate 86 85 Respiratory Rate 17 19 20 Blood Pressure 119/73 116/75 Pulse Oximetry 94 L 95 93 L 06/30/18 10:36 06/30/18 10:37 Temperature Pulse Rate 87 Respiratory Rate 22 22 Blood Pressure Pulse Oximetry 98 Intake & Output 06/29/18 06/30/18 06/30/18 18:59 06:59 18:59 Intake Total 1281 / 1281 2068.2 / 2068.2 100 / 100 Output Total 1650 / 1650 2600 / 2600 Balance -369 / -369 -531.8 / -531.8 100 / 100 Weight 59.5 kg Intake: IV 800 / 800 2068.2 / 2068.2 100 / 100 Cordarone Inj 450 MG In D5W Inj 250 / 250 250 / 250 241 ML @ 1 MG/MIN 33.33 mls/hr IV.CONT TITRATE PRN Rx#: [id number] Versed Inj 50 mg In 50 ml @ 2 50 / 50 MG/HR 2 mls/hr IV.CONT TITRATE PRN Rx#:[id number] Flexbumin 25% Inj 100 ML @ 60 100 / 100 100 / 100 100 / 100 mls/hr IV.SIG Q12H PABLO Rx#: [id number] Intralipid 20% Inj 250 ML @ 31. 250 / 250 250 / 250 25 mls/hr IV.SIG Q24H PABLO Rx#: [id number] Merrem Inj 1,000 MG In NS Inj 100 / 100 100 / 100 100 ML @ 200 mls/hr IV.SIG Q12H PABLO Rx#:[id number] Mycamine Inj 150 MG In NS Inj 100 / 100 100 ML @ 100 mls/hr IV.SIG Q24H PABLO Rx#:[id number] MVI-12 Inj 10 ML Folvite Inj 1 1018.2 / 1018.2 MG In Clinimix E 5%/D20W Inj 2, 000 ML @ 42.214 mls/hr IV.SIG Q24H PABLO Rx#:[id number] Flagyl 500 MG Inj 100 ML @ 100 100 / 100 200 / 200 mls/hr IV.SIG Q8H PABLO Rx#: [id number] Intake (Blood Product) Amt 481 / 481 Plt Pheresis C Leukored Pas 184 / 184 Unit [id number] Plt Pheresis S Leukoreduced 297 / 297 Unit [id number] Output: Urine Amount (Catheter) 1650 / 1650 2600 / 2600 Indwelling Urethral Catheter 165 / 1650 2600 / 2600 Other: Date of Last Bowel Movement 06/27/18 06/30/18 06/30/18 # Bowel Movements 1 1 Physical Exam: CONSTITUTIONAL/GENERAL: This is an adequately nourished patient, in no apparent distress on mech vent TUBES/LINES/DRAINS: IJ central line, SKIN: No jaundice, rashes, or lesions. Ecchymoses on upper extremities. No wounds seen anteriorly. hands/feet cool. delayed cap refill. EYES: Pupils lt 4mm ?able reaction to light, rt 3.5 sluggish reaction to light. does not actively open eyes. No scleral icterus. No injection or drainage. Fundi not examined. CARDIOVASCULAR: Regular rate and rhythm without murmur . No JVD. Peripheral pulses symmetric. hands/feet cool RESPIRATORY/CHEST: Symmetric,un labored respirations on mech vent . Clear to auscultation, decreased air movement. Breath sounds equal bilaterally. GASTROINTESTINAL: Abdomen soft, nondistended. No hepato-splenomegaly, or palpable masses. No guarding. Bowel sounds intermittent GENITOURINARY: Without palpable bladder distension. Brenner catheter in place. MUSCULOSKELETAL: Fingers /toes on each foot are discolored and cool NEUROLOGICAL: does not respond to exam. No eye opening. slight withdraw to pain uppers, less on left than right. Questionable withdraw to pain on LE. PSYCHIATRIC: No obvious anxiety/depression- limited assess 2/2 to clinical condition. Diagnostic Tests Laboratory: Laboratory Results - last 72 hr 06/25/18 06/25/18 06/27/18 12:21 15:15 14:10 WBC RBC Hgb Hct MCV MCH MCHC RDW Plt Count MPV Prelim Diff (Auto) WBC Differential Seg Neuts % (Manual) Band Neuts % (Manual) Lymphocytes % (Manual) Monocytes % (Manual) Metamyelocytes % (Man) Myelocytes % (Man) Blast Cells % (Manual) Plasma Cell % (Manual) Abs Neuts (Manual) Differential Comment Toxic Granulation Toxic Vacuolation Dohle Bodies Platelet Estimate Platelet Morphology Spherocytes Ovalocytes [place] Cells Acanthocytes (Spur) Keratocytes Puncture Site Patient Temperature O2 Saturation ABG pH ABG pCO2 ABG pO2 ABG HCO3 ABG O2 Content ABG Base Excess ABG Methemoglobin Flako Test Hemoglobin Carboxyhemoglobin O2 Delivery Device Liter Flow Vent Setting Inspired O2 Critical Value Sodium Potassium Chloride Carbon Dioxide Anion Gap BUN Creatinine Estimated GFR POC Glucose 107 Random Glucose Lactic Acid Calcium Prot Corrected Calcium Phosphorus Magnesium Total Bilirubin AST ALT Alkaline Phosphatase Total Protein Albumin Ur Collection Type Cancelled Urine Color Cancelled Urine Clarity Cancelled Urine pH Cancelled Ur Specific [place] Cancelled Urine Protein Cancelled Urine Glucose (UA) Cancelled Urine Ketones Cancelled Urine Occult Blood Cancelled Urine Nitrate Cancelled Urine Bilirubin Cancelled Urine Ictotest Cancelled Urine Urobilinogen Cancelled Ur Leukocyte Esterase Cancelled Urine RBC Cancelled Urine WBC Cancelled Urine WBC Clumps Cancelled Ur Squamous Epith Cells Cancelled Ur Transition Epith Cell Cancelled Ur Renal Epithelial Cell Cancelled Calcium Carbonate Cryst Cancelled Calcium Oxalate Crystal Cancelled Leucine Crystals Cancelled Cystine Crystals Cancelled Uric Acid Crystals Cancelled Triple Phos Crystals Cancelled Cholesterol Crystals Cancelled Tyrosine Crystals Cancelled Amorphous Sediment Cancelled Urine Bacteria Cancelled Hyaline Casts Cancelled Granular Casts Cancelled Fine Granular Casts Cancelled Coarse Granular Casts Cancelled Waxy Casts Cancelled RBC Casts Cancelled WBC Casts Cancelled Urine Mucus Cancelled Urine Trichomonas Cancelled Urine Yeast Cancelled Ur Yeast w Hyphae Cancelled Urine Sperm Cancelled Ur Oval Fat Bodies Cancelled Micro UA Comment Cancelled Ur Microscopic Review Cancelled Urine Culture Comments Cancelled Urine Eosinophils Urine Collection Time Cancelled Urine Comment Cancelled Stool C.difficile Ag Stool C.difficile Toxin Stl C.difficile DNA Amp St C. diff Tox Epid 027 MTS Gel Crossmatch See Detail Bld Prod Order Comment 06/27/18 06/27/18 06/27/18 14:35 16:55 16:55 WBC RBC Hgb Hct MCV MCH MCHC RDW Plt Count MPV Prelim Diff (Auto) WBC Differential Seg Neuts % (Manual) Band Neuts % (Manual) Lymphocytes % (Manual) Monocytes % (Manual) Metamyelocytes % (Man) Myelocytes % (Man) Blast Cells % (Manual) Plasma Cell % (Manual) Abs Neuts (Manual) Differential Comment Toxic Granulation Toxic Vacuolation Dohle Bodies Platelet Estimate Platelet Morphology Spherocytes Ovalocytes [place] Cells Acanthocytes (Spur) Keratocytes Puncture Site Patient Temperature O2 Saturation ABG pH ABG pCO2 ABG pO2 ABG HCO3 ABG O2 Content ABG Base Excess ABG Methemoglobin Flako Test Hemoglobin Carboxyhemoglobin O2 Delivery Device Liter Flow Vent Setting Inspired O2 Critical Value Sodium Potassium Chloride Carbon Dioxide Anion Gap BUN Creatinine Estimated GFR POC Glucose Random Glucose Lactic Acid Calcium Prot Corrected Calcium Phosphorus Magnesium Total Bilirubin AST ALT Alkaline Phosphatase Total Protein Albumin Ur Collection Type Urine Color Yellow Urine Clarity Cloudy H Urine pH 5.0 Ur Specific [place] 1.015 Urine Protein 100 H Urine Glucose (UA) 50 Urine Ketones Negative Urine Occult Blood Large H Urine Nitrate Negative Urine Bilirubin Negative Urine Ictotest Urine Urobilinogen Less than 2 Ur Leukocyte Esterase Moderate H Urine RBC 35 H Urine WBC Urine WBC Clumps Few H Ur Squamous Epith Cells Ur Transition Epith Cell Ur Renal Epithelial Cell Calcium Carbonate Cryst Calcium Oxalate Crystal Leucine Crystals Cystine Crystals Uric Acid Crystals Triple Phos Crystals Cholesterol Crystals Tyrosine Crystals Amorphous Sediment Urine Bacteria Hyaline Casts Granular Casts 4 Fine Granular Casts Coarse Granular Casts Waxy Casts RBC Casts WBC Casts Urine Mucus Few H Urine Trichomonas Urine Yeast Ur Yeast w Hyphae Urine Sperm Ur Oval Fat Bodies Micro UA Comment Cath-culture ind Ur Microscopic Review Not Reportable Urine Culture Comments Cath-cult indicated Urine Eosinophils None seen Urine Collection Time Urine Comment Stool C.difficile Ag Stool C.difficile Toxin Stl C.difficile DNA Amp St C. diff Tox Epid 027 MTS Gel Crossmatch Bld Prod Order Comment 06/27/18 06/27/18 06/27/18 16:55 18:11 23:17 WBC RBC Hgb Hct MCV MCH MCHC RDW Plt Count MPV Prelim Diff (Auto) WBC Differential Seg Neuts % (Manual) Band Neuts % (Manual) Lymphocytes % (Manual) Monocytes % (Manual) Metamyelocytes % (Man) Myelocytes % (Man) Blast Cells % (Manual) Plasma Cell % (Manual) Abs Neuts (Manual) Differential Comment Toxic Granulation Toxic Vacuolation Dohle Bodies Platelet Estimate Platelet Morphology Spherocytes Ovalocytes [place] Cells Acanthocytes (Spur) Keratocytes Puncture Site Patient Temperature O2 Saturation ABG pH ABG pCO2 ABG pO2 ABG HCO3 ABG O2 Content ABG Base Excess ABG Methemoglobin Flako Test Hemoglobin Carboxyhemoglobin O2 Delivery Device Liter Flow Vent Setting Inspired O2 Critical Value Sodium Potassium Chloride Carbon Dioxide Anion Gap BUN Creatinine Estimated GFR POC Glucose 107 157 H Random Glucose Lactic Acid Calcium Prot Corrected Calcium Phosphorus Magnesium Total Bilirubin AST ALT Alkaline Phosphatase Total Protein Albumin Ur Collection Type Urine Color Urine Clarity Urine pH Ur Specific [place] Urine Protein Urine Glucose (UA) Urine Ketones Urine Occult Blood Urine Nitrate Urine Bilirubin Urine Ictotest Urine Urobilinogen Ur Leukocyte Esterase Urine RBC Urine WBC Urine WBC Clumps Ur Squamous Epith Cells Ur Transition Epith Cell Ur Renal Epithelial Cell Calcium Carbonate Cryst Calcium Oxalate Crystal Leucine Crystals Cystine Crystals Uric Acid Crystals Triple Phos Crystals Cholesterol Crystals Tyrosine Crystals Amorphous Sediment Urine Bacteria Hyaline Casts Granular Casts Fine Granular Casts Coarse Granular Casts Waxy Casts RBC Casts WBC Casts Urine Mucus Urine Trichomonas Urine Yeast Ur Yeast w Hyphae Urine Sperm Ur Oval Fat Bodies Micro UA Comment Ur Microscopic Review Urine Culture Comments Urine Eosinophils Urine Collection Time Urine Comment Stool C.difficile Ag Positive H Stool C.difficile Toxin Negative Stl C.difficile DNA Amp Positive H St C. diff Tox Epid 027 Negative MTS Gel Crossmatch Bld Prod Order Comment 06/28/18 06/28/18 06/28/18 04:30 04:30 09:35 WBC 7.8 D RBC 5.01 Hgb 13.7 Hct 39.2 MCV 78.2 L MCH 27.3 MCHC 35.0 RDW 19.4 H Plt Count 35 L D MPV 8.7 Prelim Diff (Auto) WBC Differential Manual diff final Seg Neuts % (Manual) 75 H Band Neuts % (Manual) 7 H Lymphocytes % (Manual) 5 L Monocytes % (Manual) 6 Metamyelocytes % (Man) 7 H Myelocytes % (Man) Blast Cells % (Manual) Plasma Cell % (Manual) Abs Neuts (Manual) 6.9 Differential Comment . Toxic Granulation 2+ H Toxic Vacuolation Present H Dohle Bodies Present H Platelet Estimate Low L Platelet Morphology Normal Spherocytes Ovalocytes [place] Cells 2+ H Acanthocytes (Spur) Keratocytes Puncture Site Right radial Patient Temperature 98.6 O2 Saturation 94 ABG pH 7.40 ABG pCO2 19 L* ABG pO2 85 ABG HCO3 11 L* ABG O2 Content 17.1 ABG Base Excess -12.6 L ABG Methemoglobin 1.8 Flako Test Present Hemoglobin 12.9 Carboxyhemoglobin 0.6 O2 Delivery Device Nasal cannula Liter Flow 4.00 Vent Setting Inspired O2 Critical Value Yes Sodium 145 Potassium 3.2 L D Chloride 118 H D Carbon Dioxide 13.9 L Anion Gap 13 BUN 60 H Creatinine 1.36 H Estimated GFR 38 L POC Glucose Random Glucose 341 H D Lactic Acid Calcium 6.8 L* Prot Corrected Calcium 7.9 L Phosphorus Magnesium 1.6 Total Bilirubin 1.0 AST 30 ALT 36 Alkaline Phosphatase 52 Total Protein 5.0 L Albumin 1.4 L Ur Collection Type Urine Color Urine Clarity Urine pH Ur Specific [place] Urine Protein Urine Glucose (UA) Urine Ketones Urine Occult Blood Urine Nitrate Urine Bilirubin Urine Ictotest Urine Urobilinogen Ur Leukocyte Esterase Urine RBC Urine WBC Urine WBC Clumps Ur Squamous Epith Cells Ur Transition Epith Cell Ur Renal Epithelial Cell Calcium Carbonate Cryst Calcium Oxalate Crystal Leucine Crystals Cystine Crystals Uric Acid Crystals Triple Phos Crystals Cholesterol Crystals Tyrosine Crystals Amorphous Sediment Urine Bacteria Hyaline Casts Granular Casts Fine Granular Casts Coarse Granular Casts Waxy Casts RBC Casts WBC Casts Urine Mucus Urine Trichomonas Urine Yeast Ur Yeast w Hyphae Urine Sperm Ur Oval Fat Bodies Micro UA Comment Ur Microscopic Review Urine Culture Comments Urine Eosinophils Urine Collection Time Urine Comment Stool C.difficile Ag Stool C.difficile Toxin Stl C.difficile DNA Amp St C. diff Tox Epid 027 MTS Gel Crossmatch Bld Prod Order Comment 06/28/18 06/28/18 06/28/18 09:45 12:50 19:40 WBC RBC Hgb Hct MCV MCH MCHC RDW Plt Count MPV Prelim Diff (Auto) WBC Differential Seg Neuts % (Manual) Band Neuts % (Manual) Lymphocytes % (Manual) Monocytes % (Manual) Metamyelocytes % (Man) Myelocytes % (Man) Blast Cells % (Manual) Plasma Cell % (Manual) Abs Neuts (Manual) Differential Comment Toxic Granulation Toxic Vacuolation Dohle Bodies Platelet Estimate Platelet Morphology Spherocytes Ovalocytes [place] Cells Acanthocytes (Spur) Keratocytes Puncture Site Patient Temperature O2 Saturation ABG pH ABG pCO2 ABG pO2 ABG HCO3 ABG O2 Content ABG Base Excess ABG Methemoglobin Flako Test Hemoglobin Carboxyhemoglobin O2 Delivery Device Liter Flow Vent Setting Inspired O2 Critical Value Sodium Potassium Chloride Carbon Dioxide Anion Gap BUN Creatinine Estimated GFR POC Glucose 202 H Random Glucose Lactic Acid 3.1 H Calcium Prot Corrected Calcium Phosphorus 1.0 L Magnesium Total Bilirubin AST ALT Alkaline Phosphatase Total Protein Albumin Ur Collection Type Urine Color Urine Clarity Urine pH Ur Specific [place] Urine Protein Urine Glucose (UA) Urine Ketones Urine Occult Blood Urine Nitrate Urine Bilirubin Urine Ictotest Urine Urobilinogen Ur Leukocyte Esterase Urine RBC Urine WBC Urine WBC Clumps Ur Squamous Epith Cells Ur Transition Epith Cell Ur Renal Epithelial Cell Calcium Carbonate Cryst Calcium Oxalate Crystal Leucine Crystals Cystine Crystals Uric Acid Crystals Triple Phos Crystals Cholesterol Crystals Tyrosine Crystals Amorphous Sediment Urine Bacteria Hyaline Casts Granular Casts Fine Granular Casts Coarse Granular Casts Waxy Casts RBC Casts WBC Casts Urine Mucus Urine Trichomonas Urine Yeast Ur Yeast w Hyphae Urine Sperm Ur Oval Fat Bodies Micro UA Comment Ur Microscopic Review Urine Culture Comments Urine Eosinophils Urine Collection Time Urine Comment Stool C.difficile Ag Stool C.difficile Toxin Stl C.difficile DNA Amp St C. diff Tox Epid 027 MTS Gel Crossmatch Bld Prod Order Comment 06/29/18 06/29/18 06/29/18 00:34 04:40 04:40 WBC 16.9 H RBC 4.79 Hgb 12.8 Hct 37.6 MCV 78.6 L MCH 26.8 L MCHC 34.1 RDW 19.8 H Plt Count 17 L* D MPV 12.3 H Prelim Diff (Auto) Manual diff required WBC Differential Manual diff final Seg Neuts % (Manual) 82 H Band Neuts % (Manual) 10 H Lymphocytes % (Manual) 2 L Monocytes % (Manual) 4 Metamyelocytes % (Man) 1 Myelocytes % (Man) Blast Cells % (Manual) Plasma Cell % (Manual) 1 H Abs Neuts (Manual) 15.7 H Differential Comment . Toxic Granulation 1+ H Toxic Vacuolation Dohle Bodies Present H Platelet Estimate Rare L Platelet Morphology Enlarged H Spherocytes Ovalocytes 1+ H [place] Cells 1+ H Acanthocytes (Spur) Occ H Keratocytes Occ H Puncture Site Patient Temperature O2 Saturation ABG pH ABG pCO2 ABG pO2 ABG HCO3 ABG O2 Content ABG Base Excess ABG Methemoglobin Flako Test Hemoglobin Carboxyhemoglobin O2 Delivery Device Liter Flow Vent Setting Inspired O2 Critical Value Sodium Potassium Chloride Carbon Dioxide Anion Gap BUN Creatinine 1.39 H Estimated GFR 37 L POC Glucose 300 H Random Glucose Lactic Acid Calcium Prot Corrected Calcium Phosphorus Magnesium Total Bilirubin AST ALT Alkaline Phosphatase Total Protein Albumin Ur Collection Type Urine Color Urine Clarity Urine pH Ur Specific [place] Urine Protein Urine Glucose (UA) Urine Ketones Urine Occult Blood Urine Nitrate Urine Bilirubin Urine Ictotest Urine Urobilinogen Ur Leukocyte Esterase Urine RBC Urine WBC Urine WBC Clumps Ur Squamous Epith Cells Ur Transition Epith Cell Ur Renal Epithelial Cell Calcium Carbonate Cryst Calcium Oxalate Crystal Leucine Crystals Cystine Crystals Uric Acid Crystals Triple Phos Crystals Cholesterol Crystals Tyrosine Crystals Amorphous Sediment Urine Bacteria Hyaline Casts Granular Casts Fine Granular Casts Coarse Granular Casts Waxy Casts RBC Casts WBC Casts Urine Mucus Urine Trichomonas Urine Yeast Ur Yeast w Hyphae Urine Sperm Ur Oval Fat Bodies Micro UA Comment Ur Microscopic Review Urine Culture Comments Urine Eosinophils Urine Collection Time Urine Comment Stool C.difficile Ag Stool C.difficile Toxin Stl C.difficile DNA Amp St C. diff Tox Epid 027 MTS Gel Crossmatch Bld Prod Order Comment 06/29/18 06/29/18 06/29/18 06:34 09:20 09:24 WBC RBC Hgb Hct MCV MCH MCHC RDW Plt Count MPV Prelim Diff (Auto) WBC Differential Seg Neuts % (Manual) Band Neuts % (Manual) Lymphocytes % (Manual) Monocytes % (Manual) Metamyelocytes % (Man) Myelocytes % (Man) Blast Cells % (Manual) Plasma Cell % (Manual) Abs Neuts (Manual) Differential Comment Toxic Granulation Toxic Vacuolation Dohle Bodies Platelet Estimate Platelet Morphology Spherocytes Ovalocytes [place] Cells Acanthocytes (Spur) Keratocytes Puncture Site Right radial Patient Temperature 98.6 O2 Saturation 87 L* ABG pH 7.42 ABG pCO2 28 L ABG pO2 57 L* ABG HCO3 18 L ABG O2 Content 15.3 ABG Base Excess -5.9 L ABG Methemoglobin 1.8 Flako Test Present Hemoglobin 12.5 Carboxyhemoglobin 0.9 O2 Delivery Device Venti mask Liter Flow 6.00 Vent Setting Inspired O2 50 Critical Value Yes Sodium Potassium 3.8 Chloride Carbon Dioxide Anion Gap BUN Creatinine Estimated GFR POC Glucose 230 H Random Glucose Lactic Acid Calcium Prot Corrected Calcium Phosphorus 2.8 D Magnesium Total Bilirubin AST ALT Alkaline Phosphatase Total Protein Albumin Ur Collection Type Urine Color Urine Clarity Urine pH Ur Specific [place] Urine Protein Urine Glucose (UA) Urine Ketones Urine Occult Blood Urine Nitrate Urine Bilirubin Urine Ictotest Urine Urobilinogen Ur Leukocyte Esterase Urine RBC Urine WBC Urine WBC Clumps Ur Squamous Epith Cells Ur Transition Epith Cell Ur Renal Epithelial Cell Calcium Carbonate Cryst Calcium Oxalate Crystal Leucine Crystals Cystine Crystals Uric Acid Crystals Triple Phos Crystals Cholesterol Crystals Tyrosine Crystals Amorphous Sediment Urine Bacteria Hyaline Casts Granular Casts Fine Granular Casts Coarse Granular Casts Waxy Casts RBC Casts WBC Casts Urine Mucus Urine Trichomonas Urine Yeast Ur Yeast w Hyphae Urine Sperm Ur Oval Fat Bodies Micro UA Comment Ur Microscopic Review Urine Culture Comments Urine Eosinophils Urine Collection Time Urine Comment Stool C.difficile Ag Stool C.difficile Toxin Stl C.difficile DNA Amp St C. diff Tox Epid 027 MTS Gel Crossmatch Bld Prod Order Comment 06/29/18 06/29/18 06/29/18 10:50 12:23 14:15 WBC RBC Hgb Hct MCV MCH MCHC RDW Plt Count MPV Prelim Diff (Auto) WBC Differential Seg Neuts % (Manual) Band Neuts % (Manual) Lymphocytes % (Manual) Monocytes % (Manual) Metamyelocytes % (Man) Myelocytes % (Man) Blast Cells % (Manual) Plasma Cell % (Manual) Abs Neuts (Manual) Differential Comment Toxic Granulation Toxic Vacuolation Dohle Bodies Platelet Estimate Platelet Morphology Spherocytes Ovalocytes [place] Cells Acanthocytes (Spur) Keratocytes Puncture Site Right radial Patient Temperature 98.6 O2 Saturation 96 ABG pH 7.29 L* ABG pCO2 46 H ABG pO2 154 H ABG HCO3 21 L ABG O2 Content 18.3 ABG Base Excess -4.1 L ABG Methemoglobin 1.9 Flako Test Present Hemoglobin 13.4 Carboxyhemoglobin 0.4 O2 Delivery Device Ventilator Liter Flow Vent Setting Prvc/ac Inspired O2 70 Critical Value Yes Sodium Potassium Chloride Carbon Dioxide Anion Gap BUN Creatinine Estimated GFR POC Glucose Random Glucose Lactic Acid 2.3 H Calcium Prot Corrected Calcium Phosphorus Magnesium Total Bilirubin AST ALT Alkaline Phosphatase Total Protein Albumin Ur Collection Type Urine Color Urine Clarity Urine pH Ur Specific [place] Urine Protein Urine Glucose (UA) Urine Ketones Urine Occult Blood Urine Nitrate Urine Bilirubin Urine Ictotest Urine Urobilinogen Ur Leukocyte Esterase Urine RBC Urine WBC Urine WBC Clumps Ur Squamous Epith Cells Ur Transition Epith Cell Ur Renal Epithelial Cell Calcium Carbonate Cryst Calcium Oxalate Crystal Leucine Crystals Cystine Crystals Uric Acid Crystals Triple Phos Crystals Cholesterol Crystals Tyrosine Crystals Amorphous Sediment Urine Bacteria Hyaline Casts Granular Casts Fine Granular Casts Coarse Granular Casts Waxy Casts RBC Casts WBC Casts Urine Mucus Urine Trichomonas Urine Yeast Ur Yeast w Hyphae Urine Sperm Ur Oval Fat Bodies Micro UA Comment Ur Microscopic Review Urine Culture Comments Urine Eosinophils Urine Collection Time Urine Comment Stool C.difficile Ag Stool C.difficile Toxin Stl C.difficile DNA Amp St C. diff Tox Epid 027 MTS Gel Crossmatch Bld Prod Order Comment 06/29/18 06/29/18 06/30/18 19:17 23:35 05:23 WBC RBC Hgb Hct MCV MCH MCHC RDW Plt Count MPV Prelim Diff (Auto) WBC Differential Seg Neuts % (Manual) Band Neuts % (Manual) Lymphocytes % (Manual) Monocytes % (Manual) Metamyelocytes % (Man) Myelocytes % (Man) Blast Cells % (Manual) Plasma Cell % (Manual) Abs Neuts (Manual) Differential Comment Toxic Granulation Toxic Vacuolation Dohle Bodies Platelet Estimate Platelet Morphology Spherocytes Ovalocytes [place] Cells Acanthocytes (Spur) Keratocytes Puncture Site Patient Temperature O2 Saturation ABG pH ABG pCO2 ABG pO2 ABG HCO3 ABG O2 Content ABG Base Excess ABG Methemoglobin Flako Test Hemoglobin Carboxyhemoglobin O2 Delivery Device Liter Flow Vent Setting Inspired O2 Critical Value Sodium Potassium Chloride Carbon Dioxide Anion Gap BUN Creatinine Estimated GFR POC Glucose 195 H 253 H Random Glucose Lactic Acid Calcium Prot Corrected Calcium Phosphorus Magnesium 1.7 Total Bilirubin AST ALT Alkaline Phosphatase Total Protein Albumin Ur Collection Type Urine Color Urine Clarity Urine pH Ur Specific [place] Urine Protein Urine Glucose (UA) Urine Ketones Urine Occult Blood Urine Nitrate Urine Bilirubin Urine Ictotest Urine Urobilinogen Ur Leukocyte Esterase Urine RBC Urine WBC Urine WBC Clumps Ur Squamous Epith Cells Ur Transition Epith Cell Ur Renal Epithelial Cell Calcium Carbonate Cryst Calcium Oxalate Crystal Leucine Crystals Cystine Crystals Uric Acid Crystals Triple Phos Crystals Cholesterol Crystals Tyrosine Crystals Amorphous Sediment Urine Bacteria Hyaline Casts Granular Casts Fine Granular Casts Coarse Granular Casts Waxy Casts RBC Casts WBC Casts Urine Mucus Urine Trichomonas Urine Yeast Ur Yeast w Hyphae Urine Sperm Ur Oval Fat Bodies Micro UA Comment Ur Microscopic Review Urine Culture Comments Urine Eosinophils Urine Collection Time Urine Comment Stool C.difficile Ag Stool C.difficile Toxin Stl C.difficile DNA Amp St C. diff Tox Epid 027 MTS Gel Crossmatch Bld Prod Order Comment 06/30/18 06/30/18 06/30/18 05:23 05:43 08:00 WBC 16.0 H RBC 4.11 Hgb 10.9 L Hct 31.5 L MCV 76.6 L MCH 26.6 L MCHC 34.7 RDW 19.3 H Plt Count 15 L* MPV 11.7 H Prelim Diff (Auto) Manual diff required WBC Differential Manual diff final Seg Neuts % (Manual) 62 Band Neuts % (Manual) 19 H Lymphocytes % (Manual) 3 L Monocytes % (Manual) 8 Metamyelocytes % (Man) 2 H Myelocytes % (Man) 4 H Blast Cells % (Manual) 1 H Plasma Cell % (Manual) 1 H Abs Neuts (Manual) 13.9 H Differential Comment . Toxic Granulation Toxic Vacuolation Dohle Bodies Present H Platelet Estimate Rare L Platelet Morphology Normal Spherocytes Occ H Ovalocytes 1+ H Darwin Cells Acanthocytes (Spur) 1+ H Keratocytes Occ H Puncture Site Patient Temperature O2 Saturation ABG pH ABG pCO2 ABG pO2 ABG HCO3 ABG O2 Content ABG Base Excess ABG Methemoglobin Flako Test Hemoglobin Carboxyhemoglobin O2 Delivery Device Liter Flow Vent Setting Inspired O2 Critical Value Sodium 151 H Potassium 3.0 L D Chloride 119 H Carbon Dioxide 27.0 Anion Gap 5 BUN 67 H Creatinine 1.28 H Estimated GFR 41 L POC Glucose 209 H Random Glucose 205 H Lactic Acid Calcium 7.0 L* Prot Corrected Calcium 8.1 L Phosphorus Magnesium 1.8 Total Bilirubin 1.1 H AST 43 H ALT 35 Alkaline Phosphatase 68 Total Protein 5.1 L Albumin 2.9 L Ur Collection Type Urine Color Urine Clarity Urine pH Ur Specific [place] Urine Protein Urine Glucose (UA) Urine Ketones Urine Occult Blood Urine Nitrate Urine Bilirubin Urine Ictotest Urine Urobilinogen Ur Leukocyte Esterase Urine RBC Urine WBC Urine WBC Clumps Ur Squamous Epith Cells Ur Transition Epith Cell Ur Renal Epithelial Cell Calcium Carbonate Cryst Calcium Oxalate Crystal Leucine Crystals Cystine Crystals Uric Acid Crystals Triple Phos Crystals Cholesterol Crystals Tyrosine Crystals Amorphous Sediment Urine Bacteria Hyaline Casts Granular Casts Fine Granular Casts Coarse Granular Casts Waxy Casts RBC Casts WBC Casts Urine Mucus Urine Trichomonas Urine Yeast Ur Yeast w Hyphae Urine Sperm Ur Oval Fat Bodies Micro UA Comment Ur Microscopic Review Urine Culture Comments Urine Eosinophils Urine Collection Time Urine Comment Stool C.difficile Ag Stool C.difficile Toxin Stl C.difficile DNA Amp St C. diff Tox Epid 027 MTS Gel Crossmatch Bld Prod Order Comment 06/30/18 06/30/18 06/30/18 08:00 08:00 10:07 WBC RBC Hgb Hct MCV MCH MCHC RDW Plt Count MPV Prelim Diff (Auto) WBC Differential Seg Neuts % (Manual) Band Neuts % (Manual) Lymphocytes % (Manual) Monocytes % (Manual) Metamyelocytes % (Man) Myelocytes % (Man) Blast Cells % (Manual) Plasma Cell % (Manual) Abs Neuts (Manual) Differential Comment Toxic Granulation Toxic Vacuolation Dohle Bodies Platelet Estimate Platelet Morphology Spherocytes Ovalocytes [place] Cells Acanthocytes (Spur) Keratocytes Puncture Site Patient Temperature O2 Saturation ABG pH ABG pCO2 ABG pO2 ABG HCO3 ABG O2 Content ABG Base Excess ABG Methemoglobin Flako Test Hemoglobin Carboxyhemoglobin O2 Delivery Device Liter Flow Vent Setting Inspired O2 Critical Value Sodium Potassium Chloride Carbon Dioxide Anion Gap BUN Creatinine Estimated GFR POC Glucose Random Glucose Lactic Acid 2.0 Calcium Prot Corrected Calcium Phosphorus 2.9 Magnesium Total Bilirubin AST ALT Alkaline Phosphatase Total Protein Albumin Ur Collection Type Urine Color Urine Clarity Urine pH Ur Specific [place] Urine Protein Urine Glucose (UA) Urine Ketones Urine Occult Blood Urine Nitrate Urine Bilirubin Urine Ictotest Urine Urobilinogen Ur Leukocyte Esterase Urine RBC Urine WBC Urine WBC Clumps Ur Squamous Epith Cells Ur Transition Epith Cell Ur Renal Epithelial Cell Calcium Carbonate Cryst Calcium Oxalate Crystal Leucine Crystals Cystine Crystals Uric Acid Crystals Triple Phos Crystals Cholesterol Crystals Tyrosine Crystals Amorphous Sediment Urine Bacteria Hyaline Casts Granular Casts Fine Granular Casts Coarse Granular Casts Waxy Casts RBC Casts WBC Casts Urine Mucus Urine Trichomonas Urine Yeast Ur Yeast w Hyphae Urine Sperm Ur Oval Fat Bodies Micro UA Comment Ur Microscopic Review Urine Culture Comments Urine Eosinophils Urine Collection Time Urine Comment Stool C.difficile Ag Stool C.difficile Toxin Stl C.difficile DNA Amp St C. diff Tox Epid 027 MTS Gel Crossmatch Bld Prod Order Comment Result Diagrams: 06/30/18 05:23 06/30/18 08:00 Microbiology: Microbiology 06/25/18 12:10 Aerobic Blood Culture - Final Blood - Peripheral Anaerobic Blood Culture - Final QNS - See aerobic report. 06/27/18 10:50 Aerobic Blood Culture - Preliminary Blood - Peripheral No growth in 3 days Anaerobic Blood Culture - Preliminary No growth in 3 days 06/27/18 10:45 Aerobic Blood Culture - Preliminary Blood - Peripheral No growth in 3 days Anaerobic Blood Culture - Preliminary No growth in 3 days 06/27/18 16:55 Urine Culture - Final Clean Catch Urine No growth in 48 hours 06/25/18 12:25 Aerobic Blood Culture - Final Blood - Peripheral Pseudomonas aeruginosa Anaerobic Blood Culture - Final QNS - See aerobic report. Imaging: Impressions Abdomen/Pelvis CT 06/28/18 00:00 CONCLUSION: 1. Colonic diverticula. 2. Persistent 4.6 cm left adnexal cystic mass. 3. Distended gallbladder. 4. Cortical calcic location seen at the left kidney with some cortical thinning. There are multiple left-sided renal masses likely related to cysts although they're nonspecific on this noncontrast CT examination. Chest X-Ray 06/29/18 00:00 CONCLUSION: ET tube and left internal jugular central line in good position. Diffuse mixed interstitial and alveolar consolidation likely related to diffuse processes such as edema or diffuse infection. The lungs appear unchanged from the prior exam. Venous Doppler Study 06/29/18 00:00 CONCLUSION: Mild nonocclusive thrombus in the right axillary vein to the brachial vein. Chest X-Ray 06/29/18 09:00 CONCLUSION: Diffuse consolidation likely related to diffuse processes such as edema or infection. Compared to the prior exam, the consolidation appears worse. Chest X-Ray 06/30/18 09:58 CONCLUSION: Unchanged bilateral infiltrates. Procedures: 06/26/18 - [facility] placement Assessment and Plan - Disease Oriented Problem List (1) Rectal cancer Pertinent Non-Medical Issues: Psychosocial: Ms. Barraza is currently though her is living in a usp with dementia. She is originally from [place] but has been living in [place] for greater than 5 years. She has 2 biological daughters and multiple stepchildren with her . She is described as a very energetic and caring woman. Spiritual:Yazidi Legal: The patient is currently able to participate to some degree in her own medical decisions. Should she become completely incapacitated and in, the absence of documented living will, decision making would fall to the patient's per [place] statutes. If he is truly incapacitated decision making would then fall to her 2 daughters Ethical issues impacting care: There are no known ethical issues impacting care at this time. Important Contacts: Maile Ajay, daughter/HCP [phone] Harper Matt, daughter/HCP [phone] Prognosis: The patient currently has a poor prognosis. Though her cancer may be treatable she is currently too debilitated to undergo any type of aggressive chemotherapy or radiation therapy. She is at risk for further decline and decompensation due to sepsis, protein calorie malnutrition, atrial fibrillation, etc. She is at risk for further respiratory and cardiac decline, further debility, and . Code Status: Full Code Plan: * LEGAL DECISION MAKER: Patient currently intubated and unable to participate in decision-making. Living will names daughter Madison is primary HCS, other daughter Kristal is secondary. * GOALS: Family wishes to monitor patient in the coming days for improvement versus deterioration. Goals remain aggressive at this time, including full code. Family would like to give the patient until Saturday to monitor for signs of improvement, wish to meet again on Saturday to reevaluate continued aggressive treatment versus de-escalation and withdrawal. They had indicated they might wish to proceed with compassionate withdrawal of life support if patient does not experience significant improvement towards recovery. * CODE STATUS: Full code * SYMPTOMS: Debility - the family and patient state she has had a rapid decline physical ability during this hospital admission. This is multifactorial given her protein calorie malnourishment and sepsis. Has recently been started on TPN. Cdiff colitis. Nauseanow on mech vent non communicative. would consider adding Reglan once kidney function improves to help with nausea in light of ileus. Painpreviously used Percocet without good relief has been switched to Dilaudid since being in the ICU. In light of hypotension due to sepsis has not received. Is currently using barrier cream and Silvadene for topical pain relief after bowel movements. Now on mech vent, light sedation. Dyspnea- 06/29 CXR=Diffuse mixed interstitial and alveolar consolidation likely related to diffuse processes such as edema or diffuse infection. , resp distress over weekend. Intubated 06/29, required 65% fio2, now on 55% fio2. currently breathing comfortably on mech vent, versed drip for sedation * Palliative care will continue to follow during hospital course as condition evolves, to assist patient/decision maker with understanding of medical conditions, weighing benefits/burdens of treatment options, for clarification of goals of treatment. Additionally will assist with any symptoms of palliative concern.
[2018-06-30] MEDS: Potassium Chlor 40 mEq Premix 40 MEQ/100 ML PIGGYBACK IV.SIG PRN ×2 (12:56→16:57)
[2018-06-30] MEDS: Pantoprazole Inj 40 MG Vial IV.PUSH SCH ×2 (12:59→20:09)
[2018-06-30] MEDS: Sodium Chloride 0.9% 2 ML Flush BID IV.FLUSH SCH ×2 (13:00→20:08)
[2018-06-30] MEDS: Potassium Chloride 20 MEQ Pwd Pkt NG/OG SCH ×2 (13:00→20:08)
[2018-06-30] MEDS: Micafungin Inj 150 MG in Sodium Chlor 0.9% Inj 100 ML IV.SIG SCH (18:11)
[2018-06-30] MEDS ORDERED: [UNRECOGNIZED DRUG - OTHER] IV.SIG SCH ×18 (20:00→20:15)
[2018-06-30] MEDS ORDERED: [UNRECOGNIZED DRUG - OTHER] IV.SIG SCH ×9 (20:00)
[2018-06-30] MEDS ORDERED: SODIUM CHLORIDE IV.SIG SCH ×27 (20:00→20:15)
[2018-06-30] MEDS ORDERED: SODIUM ACETATE IV.SIG SCH ×27 (20:00→20:15)
[2018-06-30] MEDS: [UNRECOGNIZED DRUG - OTHER] IV.SIG SCH ×9 (20:35)
[2018-06-30] MEDS: SODIUM CHLORIDE IV.SIG SCH ×9 (20:35)
[2018-06-30] MEDS: SODIUM ACETATE IV.SIG SCH ×9 (20:35)
[2018-07-01] MEDS: Insulin NovoLOG Aspart Correctional Sugar Inj SQ SCH ×2 (00:33→06:16)
[2018-07-01] MEDS: Oral Hygiene Kit OROPHARYNG SCH ×4 (00:33→17:57)
[2018-07-01 03:33] LABS: Hematocrit 38.7 % (35.0-46.0); Mean Corpuscular HGB Conc 33.5 % (32.0-36.0); Mean Corpuscular Hemoglobin 26.4 pg (27.0-34.0); Mean Corpuscular Volume 78.6 fL (80.0-100.0); Mean Platelet Volume 10.8 fL (7.0-11.0); Red Blood Count 4.92 mil/mm3 (4.00-5.30); Red Cell Distribution Width 19.4 % (11.6-17.2); White Blood Count 15.3 th/mm3 (4.0-11.0)
[2018-07-01 03:38] LABS: Platelet Count 12 th/mm3 (150-450)
[2018-07-01 03:54] LABS: Albumin 2.8 g/dL (3.4-5.0); Calcium 6.8 mg/dL (8.5-10.1); Carbon Dioxide 30.5 meq/L (21.0-32.0); Magnesium 1.6 mg/dL (1.5-2.5); Phosphorus 2.4 mg/dL (2.5-4.9); Potassium 3.9 meq/L (3.5-5.1)
[2018-07-01 03:56] LABS: Total Protein 5.8 g/dL (6.4-8.2)
[2018-07-01] MEDS: Albumin Human 25% Inj 100 ML IV.SIG SCH ×2 (04:22→16:52)
[2018-07-01] MEDS: Levothyroxine 50 MCG Tablet PO SCH (06:05)
[2018-07-01 06:48] LABS: Lymphocytes 5 % (9-44); Metamyelocytes 1 % (0-1); Monocytes 7 % (0-8); Promyelocyte 1 % (0-0); Tallied Nucleated RBC 3 (0-0)
[2018-07-01 06:49] LABS: Platelet Estimate Rare (Normal)
[2018-07-01 06:50] LABS: Ovalocytes 1+
[2018-07-01 06:51] LABS: Toxic Vacuolation Present
[2018-07-01 06:52] LABS: Platelet Morphology Normal (Normal)
--- NOTE | 2018-07-01 07:52 | XR ---
EXAM DATE: 07/01/2018 6:00 AM EDT AGE/SEX: 72 years / Female INDICATIONS: Short of breath. CLINICAL DATA: This is the patient's subsequent encounter. Patient reports that signs and symptoms h ave been present for 1 week and indicates a pain score of 0/10. MEDICAL/SURGICAL HISTORY: Gastroesophageal reflux disease. Carcinoma, cervical. Hysterectomy. Breast biopsy. COMPARISON: [facility] [place], CHEST 1V SINGLE AP, 06/30/2018. . FINDINGS: Stable ETT and left IJ central line. Persistent airspace disease in the right lower lung zone with im proved perihilar opacities bilaterally. Cardiomediastinal contours are within normal limits. Bony tho rax is intact. CONCLUSION: 1. Stable ETT and left IJ central line. 2. Improved bilateral perihilar upper lung zone airspace disease. 3. Persistent right lower lung zone airspace disease. Electronically signed by: Jim Gomez MD 07/01/2018 7:50 AM EDT
--- NOTE | 2018-07-01 07:58 | P.PNCC ---
Subjective Subjective Remarks/Hospital Course: 72-year-old female with past medical history of anorectal squamous cell carcinoma, mixed connective tissue disease (SLE, Reynaud's, Polymyositis), remote cervical cancer status post hysterectomy, hypothyroid . She originally developed anal pain and bleeding in January of 2018. She was referred to Dr. Coelho who performed biopsy of anal mass on 04/25/18 which demonstrated invasive squamous cell carcinoma. Outpatient PET reportedly showed no local or distant metastatic disease. She has been undergoing radiation therapy under the care of Dr Concepcion. Concurrent chemotherapy is planned for week 1 and 5 of radiation; and she completed first chemo cycle 06/13/18. She has reportedly been having loose watery stools for several days, difficult to determine exact time of onset. She has also had abdominal pain. When she presented for radiation treatment on 06/25, she was weak and hypotensive so she was sent to the ED. She was pancytopenic with ANC 768. CT abd/pelvis showed fluid filled small bowel c/ w partial SBO or ileus. She was admitted to hospitalist service. Blood cultures were obtained 09/25 which have now resulted + pseudomonas in 09/26 bottles. She was started on cefepime 2 gram IV and vancomycin per hematology. Tmax was 101.2 Crop Supervisor consult has been requested. She has a RUE PICC placed 06/09 which does not have overt clinical signs of infection, but will be removed. 06/27 Patient is lethargic on Amio drip ( HR now controlled) Afebrile. 06/28 patient lying on bed very lethargic remains on amiodarone infusion. Appears very critical. WBC count is improved to 7.8, platelet count of 35. BUN /creatinine further elevated at 66/1.36. Patient not to be weaker on the right upper and lower extremity-I do not see any history of CVA. Will check CT of the head stat. Patient is not a candidate for TPA due to severe thrombocytopenia, so will not initiate stroke alert. Breathing slightly labored 06/29: Clinically deteriorating very lethargic tachypneic. ABG shows significant hypoxia. Chest x-ray shows worsening bilateral infiltrates/edema. I had discussed with daughters yesterday they wanted to continue full code, patient is encephalopathy again unable to make any decisions at this time. Give additional 20 mg of IV Lasix and continue scheduled 20 mg twice daily. If not improving in the next 45-60 minutes will need endotracheal intubation 06/30: Severely septic lady who is intubated for severe respiratory failure on . Likely has acute lung injury from severe sepsis. FiO2 remains high at 65% to maintain sat above 90%. Chest x-ray is pending at this time WBC count 16 , sodium is 150, BUN 67 creatinine 1.3. Urine output adequate with Lasix 07/01 Patient remains intubated and sedated with Versed drip 3mg/hr, on Amio drip and TPN. s/p 1u PLT pheresis yesterday PLT count 12 this morning. Objective Vital Signs / I&O: Vital Signs 06/30/18 08:00 06/30/18 08:15 06/30/18 08:30 Temperature 97.8 F Pulse Rate 86 85 88 Respiratory Rate 19 20 19 Blood Pressure 119/73 116/75 118/74 Pulse Oximetry 95 93 L 94 L 06/30/18 08:45 06/30/18 09:00 06/30/18 09:15 Temperature Pulse Rate 90 85 88 Respiratory Rate 21 18 22 Blood Pressure 121/74 119/69 119/72 Pulse Oximetry 95 95 94 L 06/30/18 09:30 06/30/18 09:45 06/30/18 10:00 Temperature Pulse Rate 87 91 H 81 Respiratory Rate 23 24 20 Blood Pressure 122/75 125/80 115/69 Pulse Oximetry 95 95 94 L 06/30/18 10:15 06/30/18 10:30 06/30/18 10:36 Temperature Pulse Rate 86 80 87 Respiratory Rate 23 19 22 Blood Pressure 128/78 117/69 Pulse Oximetry 99 98 06/30/18 10:37 06/30/18 10:45 06/30/18 11:00 Temperature Pulse Rate 80 79 Respiratory Rate 22 18 21 Blood Pressure 125/78 122/73 Pulse Oximetry 98 98 98 06/30/18 11:15 06/30/18 11:30 06/30/18 11:45 Temperature Pulse Rate 78 83 78 Respiratory Rate 22 20 21 Blood Pressure 114/72 119/75 116/74 Pulse Oximetry 97 97 97 06/30/18 12:00 06/30/18 12:15 06/30/18 12:30 Temperature Pulse Rate 76 81 81 Respiratory Rate 21 20 22 Blood Pressure 115/70 124/75 123/74 Pulse Oximetry 97 97 97 06/30/18 12:45 06/30/18 13:00 06/30/18 13:15 Temperature Pulse Rate 80 83 81 Respiratory Rate 23 24 23 Blood Pressure 138/89 127/79 127/82 Pulse Oximetry 90 L 96 95 06/30/18 13:30 06/30/18 13:45 06/30/18 13:59 Temperature Pulse Rate 84 82 83 Respiratory Rate 22 21 21 Blood Pressure 125/85 125/85 Pulse Oximetry 96 96 06/30/18 14:00 06/30/18 14:15 06/30/18 14:30 Temperature Pulse Rate 84 79 81 Respiratory Rate 21 21 21 Blood Pressure 123/86 122/79 116/73 Pulse Oximetry 96 94 L 96 06/30/18 14:45 06/30/18 15:00 06/30/18 15:15 Temperature Pulse Rate 86 89 87 Respiratory Rate 23 25 H 23 Blood Pressure 118/76 123/82 122/77 Pulse Oximetry 96 96 96 06/30/18 15:30 06/30/18 15:45 06/30/18 16:00 Temperature Pulse Rate 87 85 84 Respiratory Rate 23 24 22 Blood Pressure 117/81 121/78 120/78 Pulse Oximetry 96 98 97 06/30/18 16:15 06/30/18 16:30 06/30/18 16:45 Temperature Pulse Rate 83 83 84 Respiratory Rate 22 23 23 Blood Pressure 118/81 114/73 110/72 Pulse Oximetry 96 97 97 06/30/18 16:59 06/30/18 17:00 06/30/18 17:15 Temperature 97.7 F Pulse Rate 90 90 85 Respiratory Rate 25 H 25 H 27 H Blood Pressure 110/72 121/77 119/77 Pulse Oximetry 98 96 96 06/30/18 17:30 06/30/18 17:45 06/30/18 19:00 Temperature 98.1 F Pulse Rate 83 83 91 H Respiratory Rate 21 23 27 H Blood Pressure 115/75 112/74 127/83 Pulse Oximetry 97 97 98 06/30/18 20:00 06/30/18 20:57 07/01/18 00:00 Temperature 98.1 F 98.5 F Pulse Rate 87 95 H 89 Respiratory Rate 23 25 H 24 Blood Pressure 116/77 124/77 Pulse Oximetry 96 99 99 07/01/18 00:03 07/01/18 03:54 07/01/18 04:00 Temperature 98.0 F Pulse Rate 89 92 H 91 H Respiratory Rate 22 23 24 Blood Pressure 120/78 Pulse Oximetry 98 98 98 Intake & Output 06/30/18 07/01/18 07/01/18 18:59 06:59 18:59 Intake Total 987 / 987 1481.52 / 1481.52 Output Total 2350 / 2350 1750 / 1750 Balance -1363 / -1363 -268.48 / -268.48 Weight 57 kg Intake: IV 750 / 750 1481.52 / 1481.52 Cordarone Inj 450 MG In D5W Inj 250 / 250 241 ML @ 1 MG/MIN 33.33 mls/hr IV.CONT TITRATE PRN Rx#: [id number] Versed Inj 50 mg In 50 ml @ 2 50 / 50 MG/HR 2 mls/hr IV.CONT TITRATE PRN Rx#:[id number] 1/2 Normal Saline Inj 1,000 ML 75 / 75 @ 75 mls/hr IV.CONT .[id number] PABLO Rx#:[id number] Flexbumin 25% Inj 100 ML @ 60 200 / 200 100 / 100 mls/hr IV.SIG Q12H PABLO Rx#: [id number] Intralipid 20% Inj 250 ML @ 31. 250 / 250 25 mls/hr IV.SIG Q24H PABLO Rx#: [id number] Merrem Inj 1,000 MG In NS Inj 100 / 100 100 / 100 100 ML @ 200 mls/hr IV.SIG Q12H PABLO Rx#:[id number] Mycamine Inj 150 MG In NS Inj 100 / 100 100 ML @ 100 mls/hr IV.SIG Q24H PABLO Rx#:[id number] MVI-12 Inj 10 ML Folvite Inj 1 506.52 / 506.52 MG In Clinimix E 5%/D20W Inj 2, 000 ML @ 42.214 mls/hr IV.SIG Q24H PABLO Rx#:[id number] KCl 40 mEq Premix Inj 40 meq In 100 / 100 100 / 100 100 ml @ 25 mls/hr IV.SIG Q2H PRN Rx#:[id number] Flagyl 500 MG Inj 100 ML @ 100 100 / 100 200 / 200 mls/hr IV.SIG Q8H PABLO Rx#: [id number] Intake (Blood Product) Amt 237 / 237 Prepooled Plts Leukoreduced 5d 237 / 237 Unit [id number] Output: Urine Amount (Catheter) 2349 / 0 1750 / 1750 Indwelling Urethral Catheter 2349 1750 / 1750 Other: Date of Last Bowel Movement 06/30/18 06/30/18 # Bowel Movements 3 Result Diagrams: 07/01/18 03:00 07/01/18 03:00 Other Results: Laboratory Results - last 12 hr 07/01/18 07/01/18 07/01/18 00:29 03:00 03:00 WBC 15.3 H RBC 4.92 Hgb 13.0 D Hct 38.7 MCV 78.6 L MCH 26.4 L MCHC 33.5 RDW 19.4 H Plt Count 12 L* MPV 10.8 Prelim Diff (Auto) Manual diff required WBC Differential Manual diff final Seg Neuts % (Manual) 63 Band Neuts % (Manual) 23 H Lymphocytes % (Manual) 5 L Monocytes % (Manual) 7 Metamyelocytes % (Man) 1 Promyelocytes % (Man) 1 H Abs Neuts (Manual) 13.5 H Nucleated RBCs/100 WBC 3 H Differential Comment . Toxic Vacuolation Present H Platelet Estimate Rare L Platelet Morphology Normal Ovalocytes 1+ H Keratocytes Occ H Sodium 154 H Potassium 3.9 D Chloride 113 H Carbon Dioxide 30.5 Anion Gap 11 BUN 65 H Creatinine 1.16 H Estimated GFR 46 L POC Glucose 181 H Random Glucose 225 H Calcium 6.8 L* Prot Corrected Calcium 7.5 L Phosphorus 2.4 L Magnesium 1.6 Total Bilirubin 1.2 H AST 38 H ALT 44 Alkaline Phosphatase 92 Total Protein 5.8 L D Albumin 2.8 L 07/01/18 06:12 WBC RBC Hgb Hct MCV MCH MCHC RDW Plt Count MPV Prelim Diff (Auto) WBC Differential Seg Neuts % (Manual) Band Neuts % (Manual) Lymphocytes % (Manual) Monocytes % (Manual) Metamyelocytes % (Man) Promyelocytes % (Man) Abs Neuts (Manual) Nucleated RBCs/100 WBC Differential Comment Toxic Vacuolation Platelet Estimate Platelet Morphology Ovalocytes Keratocytes Sodium Potassium Chloride Carbon Dioxide Anion Gap BUN Creatinine Estimated GFR POC Glucose 216 H Random Glucose Calcium Prot Corrected Calcium Phosphorus Magnesium Total Bilirubin AST ALT Alkaline Phosphatase Total Protein Albumin Imaging: Abdomen/Pelvis CT 06/28/18 00:00 CONCLUSION: 1. Colonic diverticula. 2. Persistent 4.6 cm left adnexal cystic mass. 3. Distended gallbladder. 4. Cortical calcic location seen at the left kidney with some cortical thinning. There are multiple left-sided renal masses likely related to cysts although they're nonspecific on this noncontrast CT examination. Chest CT 06/28/18 00:00 CONCLUSION: 1. Development of moderate bilateral pleural effusions being worse in the right. 2. Areas of consolidation or atelectasis at the posterior lower lungs. Given the effusions is likely represent areas of atelectasis. 3. Consolidation and bronchiectasis in the right upper lung. This was present on the prior exam. It appears to progress. 4. Distended esophagus throughout the chest. Head CT 06/28/18 00:00 CONCLUSION: Negative noncontrast head CT. . Venous Doppler Study 06/29/18 00:00 CONCLUSION: Mild nonocclusive thrombus in the right axillary vein to the brachial vein. Objective Remarks: GENERAL: Patient is 72 lying in bed ,Critically ill, intubated sedated SKIN: Warm and dry. HEAD: Normocephalic. EYES: No scleral icterus. No injection or drainage. Anemic ENT: Oral mucosa is dry. Orotracheally intubated NECK: Supple, trachea midline. No JVD or lymphadenopathy. CARDIOVASCULAR: RRR without murmurs, gallops, or rubs. RESPIRATORY: B/l equal air entry GASTROINTESTINAL: Abdomen soft, non-tender, nondistended. MUSCULOSKELETAL: No cyanosis, or edema. Neuro: Intubated sedated moves extremities intermittently,. Assessment and Plan - Assessment and Plan Plan: NEURO: Acute metabolic encephalopathy secondary to sepsis Dilaudid prn pain. Versed for sedation and vent synchrony CT head negative for acute findings Monitor neuro status closely On Versed drip for sedation. Daily sedation vacation. RESP: Acute hypoxemic respiratory failure Pulmonary edema Acute lung injury Intubated and placed on mechanical ventilation 06/29/2018 due to progressive acute lung injury and severe hypoxemia Check ABG/CXR On PRVC RR 16, TV 450, IT:1.0, PEEP:8, FIO2 45% Continue bronchodilators CV: Hypotension secondary to volume depletion and sepsis. Atrial fibrillation with RVR s/p 2 L normal saline bolus Currently on IV Lasix 20 mg every 12 for pulmonary edema Levophed if needed to maintain MAP>65mmHg On Amio drip for Afib with RVR- now HR controlled. Continue TPN. GI: C. difficile colitis Ileus Squamous cell carcinoma of the anus Moderate protein energy malnutrition NPO for bowel rest. Continue TPN consider weaning off TPN and start tube feeds if ok with CRS CRS is following- Dr. Coelho FEN/RENAL: GREY Hypernatremia Monitor intake and output. Monitor electrolytes. Replace electrolytes as indicated per ICU electrolyte replacement protocol. On Lasix 2mg BID, add D5W@50ml/hr Monitor sodium level ID: Pseudomonas bacteremia 06/25 Severe sepsis with probable GI source C Diff Continue abx- On Merrem, Micafungin. On Vancomycin 500 mg p.o. every 6 hours and IV Flagyl for C. difficile Blood culture growing Pseudomonas. Removed PICC 06/26. HEME: Squamous cell carcinoma anorectal Pancytopenia On Neupogen per oncology. Neutropenia has resolved, thrombocytopenia persists SCC anus - s/p chemo completed 06/13. Radiation therapy on hold per Dr. Concepcion. Monitor CBC, coags. Plt and blood product transfusion per heme ENDO: Hyperglycemia Increase SSI to medium scale with accuchecks for glycemic control On Synthroid 50 mcg daily. TSH:0.98 on 06/27 PROPH: SCD for DVT prophylaxis. On Protonix 40mg Q12 for GI prophylaxis ACCESS: Removed right upper extremity PICC 06/26. L IJ CVL placed 06/26 Palliative care following Full code CCT 35 mins excluding procedures
[2018-07-01] MEDS: Dextrose 5% in Water Inj 1,000 ML IV.CONT SCH (08:00)
[2018-07-01] MEDS ORDERED: Dextrose 50% in Water 50 ML Vial IV.PUSH PRN (08:03)
[2018-07-01] MEDS: Sodium Chloride 0.9% 2 ML Flush BID IV.FLUSH SCH ×2 (08:12→21:11)
[2018-07-01] MEDS: Pantoprazole Inj 40 MG Vial IV.PUSH SCH ×2 (08:12→21:10)
[2018-07-01] MEDS: Potassium Chloride 20 MEQ Pwd Pkt NG/OG SCH (08:13)
[2018-07-01] MEDS: Chlorhexidine 0.12% Oral Kit 15 ML UDC OROPHARYNG SCH ×2 (08:13→21:11)
[2018-07-01 08:41] LABS: ABG Base Excess 5.6 mmol/L (-2-2); ABG PCO2 32 mmHg (38-42); ABG PO2 185 mmHG (61-120)
[2018-07-01] MEDS ORDERED: Acetaminophen 325 MG Tablet PO PRN (09:47)
[2018-07-01] MEDS ORDERED: Sodium Chlor 0.9% Inj 250 ML IV.SIG SCH (10:00)
--- NOTE | 2018-07-01 10:37 | P.PNONC ---
Subjective Interval history: Afebrile, remains intubated and sedated. Discussed with RN. 1 unit platelets ordered. Objective Vital Signs/Intake & Output: Vital Signs 06/30/18 10:30 06/30/18 10:36 06/30/18 10:37 Temperature Pulse Rate 80 87 Respiratory Rate 19 22 22 Blood Pressure 117/69 Pulse Oximetry 98 98 06/30/18 10:45 06/30/18 11:00 06/30/18 11:15 Temperature Pulse Rate 80 79 78 Respiratory Rate 18 21 22 Blood Pressure 125/78 122/73 114/72 Pulse Oximetry 98 98 97 06/30/18 11:30 06/30/18 11:45 06/30/18 12:00 Temperature Pulse Rate 83 78 76 Respiratory Rate 20 21 21 Blood Pressure 119/75 116/74 115/70 Pulse Oximetry 97 97 97 06/30/18 12:15 06/30/18 12:30 06/30/18 12:45 Temperature Pulse Rate 81 81 80 Respiratory Rate 20 22 23 Blood Pressure 124/75 123/74 138/89 Pulse Oximetry 97 97 90 L 06/30/18 13:00 06/30/18 13:15 06/30/18 13:30 Temperature Pulse Rate 83 81 84 Respiratory Rate 24 23 22 Blood Pressure 127/79 127/82 125/85 Pulse Oximetry 96 95 96 06/30/18 13:45 06/30/18 13:59 06/30/18 14:00 Temperature Pulse Rate 82 83 84 Respiratory Rate 21 21 21 Blood Pressure 125/85 123/86 Pulse Oximetry 96 96 06/30/18 14:15 06/30/18 14:30 06/30/18 14:45 Temperature Pulse Rate 79 81 86 Respiratory Rate 21 21 23 Blood Pressure 122/79 116/73 118/76 Pulse Oximetry 94 L 96 96 06/30/18 15:00 06/30/18 15:15 06/30/18 15:30 Temperature Pulse Rate 89 87 87 Respiratory Rate 25 H 23 23 Blood Pressure 123/82 122/77 117/81 Pulse Oximetry 96 96 96 06/30/18 15:45 06/30/18 16:00 06/30/18 16:15 Temperature Pulse Rate 85 84 83 Respiratory Rate 24 22 22 Blood Pressure 121/78 120/78 118/81 Pulse Oximetry 98 97 96 06/30/18 16:30 06/30/18 16:45 06/30/18 16:59 Temperature 97.7 F Pulse Rate 83 84 90 Respiratory Rate 23 23 25 H Blood Pressure 114/73 110/72 110/72 Pulse Oximetry 97 97 98 06/30/18 17:00 06/30/18 17:15 06/30/18 17:30 Temperature Pulse Rate 90 85 83 Respiratory Rate 25 H 27 H 21 Blood Pressure 121/77 119/77 115/75 Pulse Oximetry 96 96 97 06/30/18 17:45 06/30/18 19:00 06/30/18 20:00 Temperature 98.1 F 98.1 F Pulse Rate 83 91 H 87 Respiratory Rate 23 27 H 23 Blood Pressure 112/74 127/83 116/77 Pulse Oximetry 97 98 96 06/30/18 20:57 07/01/18 00:00 07/01/18 00:03 Temperature 98.5 F Pulse Rate 95 H 89 89 Respiratory Rate 25 H 24 22 Blood Pressure 124/77 Pulse Oximetry 99 99 98 07/01/18 03:54 07/01/18 04:00 07/01/18 08:02 Temperature 98.0 F Pulse Rate 92 H 91 H 100 H Respiratory Rate 23 24 26 H Blood Pressure 120/78 Pulse Oximetry 98 98 99 Intake & Output 06/30/18 07/01/18 07/01/18 18:59 06:59 18:59 Intake Total 987 / 987 1481.52 / 1481.52 250 / 250 Output Total 2350 / 2350 1750 / 1750 Balance -1363 / -1363 -268.48 / -268.48 250 / 250 Weight 57 kg Intake: IV 750 / 750 1481.52 / 1481.52 250 / 250 Cordarone Inj 450 MG In D5W Inj 250 / 250 250 / 250 241 ML @ 1 MG/MIN 33.33 mls/hr IV.CONT TITRATE PRN Rx#: [id number] Versed Inj 50 mg In 50 ml @ 2 50 / 50 MG/HR 2 mls/hr IV.CONT TITRATE PRN Rx#:[id number] 1/2 Normal Saline Inj 1,000 ML 75 / 75 @ 75 mls/hr IV.CONT .[id number] [facility] Rx#:[id number] Flexbumin 25% Inj 100 ML @ 60 200 / 200 100 / 100 mls/hr IV.SIG Q12H [facility] Rx#: [id number] Intralipid 20% Inj 250 ML @ 31. 250 / 250 25 mls/hr IV.SIG Q24H [facility] Rx#: [id number] Merrem Inj 1,000 MG In NS Inj 100 / 100 100 / 100 100 ML @ 200 mls/hr IV.SIG Q12H [facility] Rx#:[id number] Mycamine Inj 150 MG In NS Inj 100 / 100 100 ML @ 100 mls/hr IV.SIG Q24H [facility] Rx#:[id number] MVI-12 Inj 10 ML Folvite Inj 1 506.52 / 506.52 MG In Clinimix E 5%/D20W Inj 2, 000 ML @ 42.214 mls/hr IV.SIG Q24H [facility] Rx#:[id number] KCl 40 mEq Premix Inj 40 meq In 100 / 100 100 / 100 100 ml @ 25 mls/hr IV.SIG Q2H PRN Rx#:[id number] Flagyl 500 MG Inj 100 ML @ 100 100 / 100 200 / 200 mls/hr IV.SIG Q8H [facility] Rx#: [id number] Intake (Blood Product) Amt 237 / 237 Prepooled Plts Leukoreduced 5d 237 / 237 Unit [id number] Output: Urine Amount (Catheter) 2350 / 2350 1750 / 1750 Indwelling Urethral Catheter 2350 / 2350 1750 / 1750 Other: Date of Last Bowel Movement 06/30/18 06/30/18 # Bowel Movements 3 Result Diagrams: 07/01/18 03:00 07/01/18 03:00 Laboratory Results: Laboratory Results - last 24 hr 06/30/18 06/30/18 06/30/18 08:00 10:07 13:40 WBC RBC Hgb Hct MCV MCH MCHC RDW Plt Count MPV Prelim Diff (Auto) WBC Differential Seg Neuts % (Manual) Band Neuts % (Manual) Lymphocytes % (Manual) Monocytes % (Manual) Metamyelocytes % (Man) Promyelocytes % (Man) Abs Neuts (Manual) Nucleated RBCs/100 WBC Differential Comment Toxic Vacuolation Platelet Estimate Platelet Morphology Ovalocytes Keratocytes Puncture Site Patient Temperature O2 Saturation ABG pH ABG pCO2 ABG pO2 ABG HCO3 ABG O2 Content ABG Base Excess ABG Methemoglobin Flako Test Hemoglobin Carboxyhemoglobin O2 Delivery Device Vent Setting Inspired O2 Critical Value Sodium Potassium Chloride Carbon Dioxide Anion Gap BUN Creatinine Estimated GFR POC Glucose 190 H Random Glucose Calcium Prot Corrected Calcium Phosphorus 2.9 Magnesium Total Bilirubin AST ALT Alkaline Phosphatase Total Protein Albumin Bld Prod Order Comment 06/30/18 07/01/18 07/01/18 18:13 00:29 03:00 WBC RBC Hgb Hct MCV MCH MCHC RDW Plt Count MPV Prelim Diff (Auto) WBC Differential Seg Neuts % (Manual) Band Neuts % (Manual) Lymphocytes % (Manual) Monocytes % (Manual) Metamyelocytes % (Man) Promyelocytes % (Man) Abs Neuts (Manual) Nucleated RBCs/100 WBC Differential Comment Toxic Vacuolation Platelet Estimate Platelet Morphology Ovalocytes Keratocytes Puncture Site Patient Temperature O2 Saturation ABG pH ABG pCO2 ABG pO2 ABG HCO3 ABG O2 Content ABG Base Excess ABG Methemoglobin Flako Test Hemoglobin Carboxyhemoglobin O2 Delivery Device Vent Setting Inspired O2 Critical Value Sodium 154 H Potassium 3.9 D Chloride 113 H Carbon Dioxide 30.5 Anion Gap 11 BUN 65 H Creatinine 1.16 H Estimated GFR 46 L POC Glucose 230 H 181 H Random Glucose 225 H Calcium 6.8 L* Prot Corrected Calcium 7.5 L Phosphorus 2.4 L Magnesium 1.6 Total Bilirubin 1.2 H AST 38 H ALT 44 Alkaline Phosphatase 92 Total Protein 5.8 L D Albumin 2.8 L Bld Prod Order Comment 07/01/18 07/01/18 07/01/18 03:00 06:12 08:31 WBC 15.3 H RBC 4.92 Hgb 13.0 D Hct 38.7 MCV 78.6 L MCH 26.4 L MCHC 33.5 RDW 19.4 H Plt Count 12 L* MPV 10.8 Prelim Diff (Auto) Manual diff required WBC Differential Manual diff final Seg Neuts % (Manual) 63 Band Neuts % (Manual) 23 H Lymphocytes % (Manual) 5 L Monocytes % (Manual) 7 Metamyelocytes % (Man) 1 Promyelocytes % (Man) 1 H Abs Neuts (Manual) 13.5 H Nucleated RBCs/100 WBC 3 H Differential Comment . Toxic Vacuolation Present H Platelet Estimate Rare L Platelet Morphology Normal Ovalocytes 1+ H Keratocytes Occ H Puncture Site Right radial Patient Temperature 98.6 O2 Saturation 97 ABG pH 7.56 H* ABG pCO2 32 L ABG pO2 185 H ABG HCO3 28 H ABG O2 Content 16.6 ABG Base Excess 5.6 H ABG Methemoglobin 1.8 Flako Test Present Hemoglobin 12.0 Carboxyhemoglobin 0.4 O2 Delivery Device Ventilator Vent Setting See comments Inspired O2 45 Critical Value Yes Sodium Potassium Chloride Carbon Dioxide Anion Gap BUN Creatinine Estimated GFR POC Glucose 216 H Random Glucose Calcium Prot Corrected Calcium Phosphorus Magnesium Total Bilirubin AST ALT Alkaline Phosphatase Total Protein Albumin Bld Prod Order Comment 07/01/18 07/01/18 09:47 09:50 WBC RBC Hgb Hct MCV MCH MCHC RDW Plt Count MPV Prelim Diff (Auto) WBC Differential Seg Neuts % (Manual) Band Neuts % (Manual) Lymphocytes % (Manual) Monocytes % (Manual) Metamyelocytes % (Man) Promyelocytes % (Man) Abs Neuts (Manual) Nucleated RBCs/100 WBC Differential Comment Toxic Vacuolation Platelet Estimate Platelet Morphology Ovalocytes Keratocytes Puncture Site Patient Temperature O2 Saturation ABG pH ABG pCO2 ABG pO2 ABG HCO3 ABG O2 Content ABG Base Excess ABG Methemoglobin Flako Test Hemoglobin Carboxyhemoglobin O2 Delivery Device Vent Setting Inspired O2 Critical Value Sodium Potassium Chloride Carbon Dioxide Anion Gap BUN Creatinine Estimated GFR POC Glucose Random Glucose Calcium Prot Corrected Calcium Phosphorus Magnesium Total Bilirubin AST ALT Alkaline Phosphatase Total Protein Albumin Bld Prod Order Comment Cancelled Culture Results: Microbiology 06/30/18 16:30 Gram Stain - Final Sputum - Endotracheal 06/30/18 13:08 Stool Occult Blood (EPIFANIO) - Final Stool Hemoccult negative 06/25/18 12:10 Aerobic Blood Culture - Final Blood - Peripheral Anaerobic Blood Culture - Final QNS - See aerobic report. 06/27/18 10:50 Aerobic Blood Culture - Preliminary Blood - Peripheral No growth in 3 days Anaerobic Blood Culture - Preliminary No growth in 3 days 06/27/18 10:45 Aerobic Blood Culture - Preliminary Blood - Peripheral No growth in 3 days Anaerobic Blood Culture - Preliminary No growth in 3 days 06/27/18 16:55 Urine Culture - Final Clean Catch Urine No growth in 48 hours 06/25/18 12:25 Aerobic Blood Culture - Final Blood - Peripheral Pseudomonas aeruginosa Anaerobic Blood Culture - Final QNS - See aerobic report. Imaging Studies: Impressions Chest X-Ray 06/30/18 09:58 CONCLUSION: Unchanged bilateral infiltrates. Chest X-Ray 07/01/18 06:00 CONCLUSION: 1. Stable ETT and left IJ central line. 2. Improved bilateral perihilar upper lung zone airspace disease. 3. Persistent right lower lung zone airspace disease. Medications: Active Medications Generic Name Dose Route Start Last Admin Trade Name Freq PRN Reason Stop Dose Admin Albuterol 1 ampul 06/27/18 12:00 07/01/18 08:01 Duoneb Neb (Fern) NEB 1 ampul Q4HR NEB [facility] Administration Chlorhexidine Gluconate 15 ml 06/29/18 20:00 07/01/18 08:13 Peridex 0.12% Oral Kit OROPHARYNG 15 ml BID@0800,2000 [facility] Administration Furosemide 20 mg 06/28/18 18:00 07/01/18 08:21 Lasix Inj IV.PUSH 20 mg BID@0900,1800 [facility] Administration Hydromorphone HCl 0.5 mg 06/26/18 14:00 06/29/18 06:30 Dilaudid Pf Inj IV.PUSH 0.5 mg Q3H PRN Administration PAIN 3-10 Meropenem 1,000 mg/ Sodium 100 mls @ 200 mls/hr 06/26/18 21:00 06/30/18 20:40 Chloride IV.SIG Infused Q12H [facility] Infusion Amiodarone HCl 450 mg/ 250 mls @ 33.33 mls/hr 06/27/18 04:37 07/01/18 08:22 Dextrose IV.CONT 0.5 mg/min TITRATE PRN 16.66 mls/hr Per Protocol Administration Protocol 1 MG/MIN Fat Emulsion Intravenous 250 mls @ 31.25 mls/hr 06/27/18 20:00 07/01/18 04:38 Intralipid 20% Inj IV.SIG Infused Q24H [facility] Infusion Potassium Chloride 40 meq in 100 mls @ 25 mls/hr 06/28/18 13:34 06/30/18 21: 46 Kcl 40 Meq Premix Inj IV.SIG Infused Q2H PRN Infusion For Potassium 2.8 - 3.2 mEq/L Potassium Phosphate 30 mmol/ 260 mls @ 42 mls/hr 06/28/18 13:34 06/29/18 03: 13 Sodium Chloride IV.SIG Infused UNSCH PRN Infusion SEE LABEL COMMENTS Albumin Human 100 mls @ 60 mls/hr 06/28/18 16:00 07/01/18 06:05 Flexbumin 25% Inj IV.SIG Infused Q12H [facility] Infusion Metronidazole/Sodium Chloride 100 mls @ 100 mls/hr 06/28/18 17:00 07/01/18 08 :12 Flagyl 500 Mg Inj IV.SIG 100 mls/hr Q8H [facility] Administration Micafungin Sodium 150 mg/ 100 mls @ 100 mls/hr 06/28/18 18:00 06/30/18 19:11 Sodium Chloride IV.SIG Infused Q24H [facility] Infusion Midazolam HCl 50 mg in 50 mls @ 2 mls/hr 06/29/18 12:23 06/30/18 21:46 Versed Inj IV.CONT 3 mg/hr TITRATE PRN 3 mls/hr Per Protocol Administration Protocol 2 MG/HR Sodium Chloride 5.5 meq/ 2,068.0187 mls @ 42 mls/hr 06/30/18 20:00 06/30/18 20:35 Sodium Acetate 59 meq/ IV.SIG 42 mls/hr Potassium Chloride 40 meq/ Q24H [facility] Administration Magnesium Chloride 10 meq/ Calcium Chloride 9 meq/ Sodium Phosphate 40 meq/ Multivitamins 10 ml/ Folic Acid 1 mg/ Amino Acids Levothyroxine Sodium 50 mcg 06/26/18 06:00 07/01/18 06:05 Synthroid PO Not Given DAILY@0600 [facility] Miscellaneous Medication 1 each 06/29/18 16:00 07/01/18 04:22 OROPHARYNG 1 each 0000,0400,1200,1600 [facility] Administration Ondansetron HCl 4 mg 06/26/18 04:31 06/27/18 14:12 Zofran Inj IV.PUSH 4 mg Q6H PRN Administration NAUSEA OR VOMITING Pantoprazole Sodium 40 mg 06/25/18 16:00 07/01/18 08:12 Protonix Inj IV.PUSH 40 mg Q12HR [facility] Administration Potassium Chloride 20 meq 06/28/18 21:00 07/01/18 08:13 Kcl Powder NG/OG Not Given BID [facility]ERN Sodium Chloride 2 ml 06/27/18 21:00 07/01/18 08:12 Ns Flush IV.FLUSH 2 ml BID [facility] Administration Sodium Chloride 2 ml 06/27/18 10:30 06/28/18 06:02 Ns Flush IV.FLUSH 2 ml PRN PRN Administration FLUSH AFTER USING IV ACCESS Vancomycin HCl 500 mg 06/28/18 16:16 07/01/18 08:13 Vancomycin Po PO Not Given QID [facility] Objective Remarks: GENERAL: Critically ill appearing female patient. Ventilated and sedated. SKIN: Pale, warm and dry. HEAD: Normocephalic. EYES: No scleral icterus. No injection or drainage. NECK: Supple, trachea midline. CARDIOVASCULAR: +S1/S2. RESPIRATORY: Breath sounds equal bilaterally. FiO2 40%. GASTROINTESTINAL: Abdomen soft, non-tender, nondistended. EXTREMITIES: No cyanosis. Trace edema. MUSCULOSKELETAL: Adequate muscle tone. NEUROLOGICAL: Intubated and sedated. Assessment/Plan - Plan Ms. 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 She had received 5 days of chemotherapy, completed on 06/13/2018. She is currently receiving radiation therapy which started on she was admitted for acute renal failure related to dehydration, intractable diarrhea from radiation chemotherapy. Plan: 1. Condition remains guarded. Remains intubated and sedated. 2. Continue antibiotics per infectious disease. 3. Nonocclusive thrombus from previous PICC line. 4. Platelet count continues to decrease, 12,000 today. Status post 1 unit platelets yesterday, I have ordered an additional unit of platelets today. 5. Hemoccult stool negative for blood. 6. Condition very poor at this time. Palliative care is following. - Attending Statement The exam, history, and the medical decision-making described in the above note were completed with the assistance of the mid-level provider. I reviewed and agree with the findings presented. I attest that I had a [id number] encounter with the patient on the same day, and personally performed and documented my assessment and findings in the medical record. On vent, sedated. Plat tx today. Continue a/b monitor cbc
[2018-07-01] MEDS: Insulin NovoLIN Regular Correctional Sugar Inj SQ SCH ×3 (14:11→21:11)
--- NOTE | 2018-07-01 15:45 | P.PNPAL ---
Reason for Visit Reason for visit: a. To assist with evaluation and management of symptoms including: pain, dyspnea b. To assist medical decision maker(s) with: better understanding of current medical conditions; weighing benefits/burdens of medical treatment options; making medical treatment decisions. Subjective Subjective/Interval History: Pt seen today to follow up on comfort, goals. Patient remains intubated minimally sedated and nonresponsive. Does not withdrawal to pain, though grimaces with abdominal exam. Large amount of creamy , white discharge noticed from oral cavity. She is tachycardic and slightly tachypneic breathing anywhere from 12-15 breaths over the ventilator setting. Clinical data for 07/01/18 as follows: * WBC 15.3, HCT G 13, HCT 38.7, platelets 12 * NA 154, K+ 3.9, CL 113, carbon dioxide 30.15, BUN 65, creatinine 1.16, glucose 225 * Current vent settings PRVC RR 16, TV 450, IT 1.0, PEEP 8, FiO2 45% Family/Friend Interactions: Updated daughter Harper via phone. Plan Patient's platelets continue to trend downward despite recent transfusions. She remains minimally responsive and on ventilator support. We discussed my concern for patient's comfort and nonverbal cues for pain. It was also explained to the patient that given her mother's acutely ill condition I am unsure how well she would be able to tolerate narcotics. Daughter verbalized understanding. States that she is purchasing a plan to get for her brother to come down and visit her mother and wishes to reconvene again tomorrow. Advance Directives Living Will: Copy in medical record Advance Directives Date on File: 06/30/18 Health Care Surrogate Name and Number: Harper Matt [phone] Maile Moss [phone] Documented care wishes:: The family provided a documented living well. States that she has a terminal condition or end-stage condition or in a persistent vegetative state she does not wish to have life prolonging procedures. She requested that be withheld or withdrawn when the application of such procedures would serve only to prolong artificially the process of dying and that she be permitted to naturally with only the administration of medication or the performance of any medical procedure deemed necessary to provide her. with comfort care or to alleviate pain. She does name her daughters Harper Matt and Maile Moss as her healthcare surrogates, Tisha is primary. Significant change in goals:: Goals remain semi-aggressive at this time. The family wishes to reconvene on 07/02/18 to assess patient's status at that time and make decisions to either continue aggressive care or transition to comfort care. Objective Vital Signs: Vital Signs 06/30/18 15:45 06/30/18 16:00 06/30/18 16:15 Temperature Pulse Rate 85 84 83 Respiratory Rate 24 22 22 Blood Pressure 121/78 120/78 118/81 Pulse Oximetry 98 97 96 06/30/18 16:30 06/30/18 16:45 06/30/18 16:59 Temperature 97.7 F Pulse Rate 83 84 90 Respiratory Rate 23 23 25 H Blood Pressure 114/73 110/72 110/72 Pulse Oximetry 97 97 98 06/30/18 17:00 06/30/18 17:15 06/30/18 17:30 Temperature Pulse Rate 90 85 83 Respiratory Rate 25 H 27 H 21 Blood Pressure 121/77 119/77 115/75 Pulse Oximetry 96 96 97 06/30/18 17:45 06/30/18 19:00 06/30/18 20:00 Temperature 98.1 F 98.1 F Pulse Rate 83 91 H 87 Respiratory Rate 23 27 H 23 Blood Pressure 112/74 127/83 116/77 Pulse Oximetry 97 98 96 06/30/18 20:57 07/01/18 00:00 07/01/18 00:03 Temperature 98.5 F Pulse Rate 95 H 89 89 Respiratory Rate 25 H 24 22 Blood Pressure 124/77 Pulse Oximetry 99 99 98 07/01/18 03:54 07/01/18 04:00 07/01/18 08:02 Temperature 98.0 F Pulse Rate 92 H 91 H 100 H Respiratory Rate 23 24 26 H Blood Pressure 120/78 Pulse Oximetry 98 98 99 07/01/18 10:52 07/01/18 15:12 Temperature 98.2 F Pulse Rate 97 H 105 H Respiratory Rate 27 H 28 H Blood Pressure 117/66 Pulse Oximetry 98 Intake & Output 06/30/18 07/01/18 07/01/18 18:59 06:59 18:59 Intake Total 987 / 987 1481.52 / 1481.52 250 / 250 Output Total 2350 / 2350 1750 / 1750 Balance -1363 / -1363 -268.48 / -268.48 250 / 250 Weight 57 kg Intake: IV 750 / 750 1481.52 / 1481.52 250 / 250 Cordarone Inj 450 MG In D5W Inj 250 / 250 250 / 250 241 ML @ 1 MG/MIN 33.33 mls/hr IV.CONT TITRATE PRN Rx#: [id number] Versed Inj 50 mg In 50 ml @ 2 50 / 50 MG/HR 2 mls/hr IV.CONT TITRATE PRN Rx#:[id number] 1/2 Normal Saline Inj 1,000 ML 75 / 75 @ 75 mls/hr IV.CONT .[id number] PABLO Rx#:[id number] Flexbumin 25% Inj 100 ML @ 60 200 / 200 100 / 100 mls/hr IV.SIG Q12H PABLO Rx#: [id number] Intralipid 20% Inj 250 ML @ 31. 250 / 250 25 mls/hr IV.SIG Q24H PABLO Rx#: [id number] Merrem Inj 1,000 MG In NS Inj 100 / 100 100 / 100 100 ML @ 200 mls/hr IV.SIG Q12H PABLO Rx#:[id number] Mycamine Inj 150 MG In NS Inj 100 / 100 100 ML @ 100 mls/hr IV.SIG Q24H PABLO Rx#:[id number] MVI-12 Inj 10 ML Folvite Inj 1 506.52 / 506.52 MG In Clinimix E 5%/D20W Inj 2, 000 ML @ 42.214 mls/hr IV.SIG Q24H PABLO Rx#:[id number] KCl 40 mEq Premix Inj 40 meq In 100 / 100 100 / 100 100 ml @ 25 mls/hr IV.SIG Q2H PRN Rx#:[id number] Flagyl 500 MG Inj 100 ML @ 100 100 / 100 200 / 200 mls/hr IV.SIG Q8H PABLO Rx#: [id number] Intake (Blood Product) Amt / 0 / 0 Plt Pheresis A Leukoreduced 0 / 0 Unit [id number] Prepooled Plts Leukoreduced 5d 237 / 237 Unit [id number] Output: Urine Amount (Catheter) 2349 175 / 175 Indwelling Urethral Catheter 2349 / 1750 Other: Date of Last Bowel Movement 06/30/18 06/30/18 07/01/18 # Bowel Movements 3 Physical Exam: CONSTITUTIONAL/GENERAL: cachectic, appears uncomfortable TUBES/LINES/DRAINS: IJ central line, SKIN: No jaundice, rashes, or lesions. Ecchymoses on upper extremities. No wounds seen anteriorly. Periphery well perfused EYES: Pupils lt 4mm sluggish reaction to light today, rt 3 sluggish reaction to light. does not actively open eyes. No scleral icterus. No injection or drainage. Fundi not examined. CARDIOVASCULAR: Tachycardic . No JVD. Peripheral pulses symmetric. RESPIRATORY/CHEST: Symmetric,un labored respirations on mech vent though rate is somewhat tachypneic. Clear to auscultation, decreased air movement. Breath sounds equal bilaterally. GASTROINTESTINAL: Abdomen soft, mild distention. No hepato-splenomegaly, or palpable masses. No guarding. Bowel sounds intermittent GENITOURINARY: Without palpable bladder distension. Brenner catheter in place. MUSCULOSKELETAL: peripheral pulses palpable. Trace edema to BLE and RUE NEUROLOGICAL: does not respond to exam. No eye opening. no withdraw to peripheral pain. Grimaces with abdominal palpation. PSYCHIATRIC: No obvious anxiety/depression- limited assess 2/2 to clinical condition. Diagnostic Tests Laboratory: Laboratory Results - last 72 hr 06/28/18 06/29/18 06/29/18 19:40 00:34 04:40 WBC RBC Hgb Hct MCV MCH MCHC RDW Plt Count MPV Prelim Diff (Auto) WBC Differential Seg Neuts % (Manual) Band Neuts % (Manual) Lymphocytes % (Manual) Monocytes % (Manual) Metamyelocytes % (Man) Myelocytes % (Man) Promyelocytes % (Man) Blast Cells % (Manual) Plasma Cell % (Manual) Abs Neuts (Manual) Nucleated RBCs/100 WBC Differential Comment Toxic Granulation Toxic Vacuolation Dohle Bodies Platelet Estimate Platelet Morphology Spherocytes Ovalocytes Darwin Cells Acanthocytes (Spur) Keratocytes Puncture Site Patient Temperature O2 Saturation ABG pH ABG pCO2 ABG pO2 ABG HCO3 ABG O2 Content ABG Base Excess ABG Methemoglobin Flako Test Hemoglobin Carboxyhemoglobin O2 Delivery Device Liter Flow Vent Setting Inspired O2 Critical Value Sodium Potassium Chloride Carbon Dioxide Anion Gap BUN Creatinine 1.39 H Estimated GFR 37 L POC Glucose 202 H 300 H Random Glucose Lactic Acid Calcium Prot Corrected Calcium Phosphorus Magnesium Total Bilirubin AST ALT Alkaline Phosphatase Total Protein Albumin Bld Prod Order Comment 06/29/18 06/29/18 06/29/18 04:40 06:34 09:20 WBC 16.9 H RBC 4.79 Hgb 12.8 Hct 37.6 MCV 78.6 L MCH 26.8 L MCHC 34.1 RDW 19.8 H Plt Count 17 L* D MPV 12.3 H Prelim Diff (Auto) Manual diff required WBC Differential Manual diff final Seg Neuts % (Manual) 82 H Band Neuts % (Manual) 10 H Lymphocytes % (Manual) 2 L Monocytes % (Manual) 4 Metamyelocytes % (Man) 1 Myelocytes % (Man) Promyelocytes % (Man) Blast Cells % (Manual) Plasma Cell % (Manual) 1 H Abs Neuts (Manual) 15.7 H Nucleated RBCs/100 WBC Differential Comment . Toxic Granulation 1+ H Toxic Vacuolation Dohle Bodies Present H Platelet Estimate Rare L Platelet Morphology Enlarged H Spherocytes Ovalocytes 1+ H Carney Cells 1+ H Acanthocytes (Spur) Occ H Keratocytes Occ H Puncture Site Patient Temperature O2 Saturation ABG pH ABG pCO2 ABG pO2 ABG HCO3 ABG O2 Content ABG Base Excess ABG Methemoglobin Flako Test Hemoglobin Carboxyhemoglobin O2 Delivery Device Liter Flow Vent Setting Inspired O2 Critical Value Sodium Potassium 3.8 Chloride Carbon Dioxide Anion Gap BUN Creatinine Estimated GFR POC Glucose 230 H Random Glucose Lactic Acid Calcium Prot Corrected Calcium Phosphorus 2.8 D Magnesium Total Bilirubin AST ALT Alkaline Phosphatase Total Protein Albumin Bld Prod Order Comment 06/29/18 06/29/18 06/29/18 09:24 10:50 12:23 WBC RBC Hgb Hct MCV MCH MCHC RDW Plt Count MPV Prelim Diff (Auto) WBC Differential Seg Neuts % (Manual) Band Neuts % (Manual) Lymphocytes % (Manual) Monocytes % (Manual) Metamyelocytes % (Man) Myelocytes % (Man) Promyelocytes % (Man) Blast Cells % (Manual) Plasma Cell % (Manual) Abs Neuts (Manual) Nucleated RBCs/100 WBC Differential Comment Toxic Granulation Toxic Vacuolation Dohle Bodies Platelet Estimate Platelet Morphology Spherocytes Ovalocytes Darwin Cells Acanthocytes (Spur) Keratocytes Puncture Site Right radial Patient Temperature 98.6 O2 Saturation 87 L* ABG pH 7.42 ABG pCO2 28 L ABG pO2 57 L* ABG HCO3 18 L ABG O2 Content 15.3 ABG Base Excess -5.9 L ABG Methemoglobin 1.8 Flako Test Present Hemoglobin 12.5 Carboxyhemoglobin 0.9 O2 Delivery Device Venti mask Liter Flow 6.00 Vent Setting Inspired O2 50 Critical Value Yes Sodium Potassium Chloride Carbon Dioxide Anion Gap BUN Creatinine Estimated GFR POC Glucose Random Glucose Lactic Acid 2.3 H Calcium Prot Corrected Calcium Phosphorus Magnesium Total Bilirubin AST ALT Alkaline Phosphatase Total Protein Albumin Bld Prod Order Comment 06/29/18 06/29/18 06/29/18 14:15 19:17 23:35 WBC RBC Hgb Hct MCV MCH MCHC RDW Plt Count MPV Prelim Diff (Auto) WBC Differential Seg Neuts % (Manual) Band Neuts % (Manual) Lymphocytes % (Manual) Monocytes % (Manual) Metamyelocytes % (Man) Myelocytes % (Man) Promyelocytes % (Man) Blast Cells % (Manual) Plasma Cell % (Manual) Abs Neuts (Manual) Nucleated RBCs/100 WBC Differential Comment Toxic Granulation Toxic Vacuolation Dohle Bodies Platelet Estimate Platelet Morphology Spherocytes Ovalocytes Carney Cells Acanthocytes (Spur) Keratocytes Puncture Site Right radial Patient Temperature 98.6 O2 Saturation 96 ABG pH 7.29 L* ABG pCO2 46 H ABG pO2 154 H ABG HCO3 21 L ABG O2 Content 18.3 ABG Base Excess -4.1 L ABG Methemoglobin 1.9 Flako Test Present Hemoglobin 13.4 Carboxyhemoglobin 0.4 O2 Delivery Device Ventilator Liter Flow Vent Setting Prvc/ac Inspired O2 70 Critical Value Yes Sodium Potassium Chloride Carbon Dioxide Anion Gap BUN Creatinine Estimated GFR POC Glucose 195 H 253 H Random Glucose Lactic Acid Calcium Prot Corrected Calcium Phosphorus Magnesium Total Bilirubin AST ALT Alkaline Phosphatase Total Protein Albumin Bld Prod Order Comment 06/30/18 06/30/18 06/30/18 05:23 05:23 05:43 WBC 16.0 H RBC 4.11 Hgb 10.9 L Hct 31.5 L MCV 76.6 L MCH 26.6 L MCHC 34.7 RDW 19.3 H Plt Count 15 L* MPV 11.7 H Prelim Diff (Auto) Manual diff required WBC Differential Manual diff final Seg Neuts % (Manual) 62 Band Neuts % (Manual) 19 H Lymphocytes % (Manual) 3 L Monocytes % (Manual) 8 Metamyelocytes % (Man) 2 H Myelocytes % (Man) 4 H Promyelocytes % (Man) Blast Cells % (Manual) 1 H Plasma Cell % (Manual) 1 H Abs Neuts (Manual) 13.9 H Nucleated RBCs/100 WBC Differential Comment . Toxic Granulation Toxic Vacuolation Dohle Bodies Present H Platelet Estimate Rare L Platelet Morphology Normal Spherocytes Occ H Ovalocytes 1+ H Carney Cells Acanthocytes (Spur) 1+ H Keratocytes Occ H Puncture Site Patient Temperature O2 Saturation ABG pH ABG pCO2 ABG pO2 ABG HCO3 ABG O2 Content ABG Base Excess ABG Methemoglobin Flako Test Hemoglobin Carboxyhemoglobin O2 Delivery Device Liter Flow Vent Setting Inspired O2 Critical Value Sodium Potassium Chloride Carbon Dioxide Anion Gap BUN Creatinine Estimated GFR POC Glucose 209 H Random Glucose Lactic Acid Calcium Prot Corrected Calcium Phosphorus Magnesium 1.7 Total Bilirubin AST ALT Alkaline Phosphatase Total Protein Albumin Bld Prod Order Comment 06/30/18 06/30/18 06/30/18 08:00 08:00 08:00 WBC RBC Hgb Hct MCV MCH MCHC RDW Plt Count MPV Prelim Diff (Auto) WBC Differential Seg Neuts % (Manual) Band Neuts % (Manual) Lymphocytes % (Manual) Monocytes % (Manual) Metamyelocytes % (Man) Myelocytes % (Man) Promyelocytes % (Man) Blast Cells % (Manual) Plasma Cell % (Manual) Abs Neuts (Manual) Nucleated RBCs/100 WBC Differential Comment Toxic Granulation Toxic Vacuolation Dohle Bodies Platelet Estimate Platelet Morphology Spherocytes Ovalocytes Carney Cells Acanthocytes (Spur) Keratocytes Puncture Site Patient Temperature O2 Saturation ABG pH ABG pCO2 ABG pO2 ABG HCO3 ABG O2 Content ABG Base Excess ABG Methemoglobin Flako Test Hemoglobin Carboxyhemoglobin O2 Delivery Device Liter Flow Vent Setting Inspired O2 Critical Value Sodium 151 H Potassium 3.0 L D Chloride 119 H Carbon Dioxide 27.0 Anion Gap 5 BUN 67 H Creatinine 1.28 H Estimated GFR 41 L POC Glucose Random Glucose 205 H Lactic Acid 2.0 Calcium 7.0 L* Prot Corrected Calcium 8.1 L Phosphorus 2.9 Magnesium 1.8 Total Bilirubin 1.1 H AST 43 H ALT 35 Alkaline Phosphatase 68 Total Protein 5.1 L Albumin 2.9 L Bld Prod Order Comment 06/30/18 06/30/18 06/30/18 10:07 13:40 18:13 WBC RBC Hgb Hct MCV MCH MCHC RDW Plt Count MPV Prelim Diff (Auto) WBC Differential Seg Neuts % (Manual) Band Neuts % (Manual) Lymphocytes % (Manual) Monocytes % (Manual) Metamyelocytes % (Man) Myelocytes % (Man) Promyelocytes % (Man) Blast Cells % (Manual) Plasma Cell % (Manual) Abs Neuts (Manual) Nucleated RBCs/100 WBC Differential Comment Toxic Granulation Toxic Vacuolation Dohle Bodies Platelet Estimate Platelet Morphology Spherocytes Ovalocytes Carney Cells Acanthocytes (Spur) Keratocytes Puncture Site Patient Temperature O2 Saturation ABG pH ABG pCO2 ABG pO2 ABG HCO3 ABG O2 Content ABG Base Excess ABG Methemoglobin Flako Test Hemoglobin Carboxyhemoglobin O2 Delivery Device Liter Flow Vent Setting Inspired O2 Critical Value Sodium Potassium Chloride Carbon Dioxide Anion Gap BUN Creatinine Estimated GFR POC Glucose 190 H 230 H Random Glucose Lactic Acid Calcium Prot Corrected Calcium Phosphorus Magnesium Total Bilirubin AST ALT Alkaline Phosphatase Total Protein Albumin Bld Prod Order Comment 07/01/18 07/01/18 07/01/18 00:29 03:00 03:00 WBC 15.3 H RBC 4.92 Hgb 13.0 D Hct 38.7 MCV 78.6 L MCH 26.4 L MCHC 33.5 RDW 19.4 H Plt Count 12 L* MPV 10.8 Prelim Diff (Auto) Manual diff required WBC Differential Manual diff final Seg Neuts % (Manual) 63 Band Neuts % (Manual) 23 H Lymphocytes % (Manual) 5 L Monocytes % (Manual) 7 Metamyelocytes % (Man) 1 Myelocytes % (Man) Promyelocytes % (Man) 1 H Blast Cells % (Manual) Plasma Cell % (Manual) Abs Neuts (Manual) 13.5 H Nucleated RBCs/100 WBC 3 H Differential Comment . Toxic Granulation Toxic Vacuolation Present H Dohle Bodies Platelet Estimate Rare L Platelet Morphology Normal Spherocytes Ovalocytes 1+ H Carney Cells Acanthocytes (Spur) Keratocytes Occ H Puncture Site Patient Temperature O2 Saturation ABG pH ABG pCO2 ABG pO2 ABG HCO3 ABG O2 Content ABG Base Excess ABG Methemoglobin Flako Test Hemoglobin Carboxyhemoglobin O2 Delivery Device Liter Flow Vent Setting Inspired O2 Critical Value Sodium 154 H Potassium 3.9 D Chloride 113 H Carbon Dioxide 30.5 Anion Gap 11 BUN 65 H Creatinine 1.16 H Estimated GFR 46 L POC Glucose 181 H Random Glucose 225 H Lactic Acid Calcium 6.8 L* Prot Corrected Calcium 7.5 L Phosphorus 2.4 L Magnesium 1.6 Total Bilirubin 1.2 H AST 38 H ALT 44 Alkaline Phosphatase 92 Total Protein 5.8 L D Albumin 2.8 L Bld Prod Order Comment 07/01/18 07/01/18 07/01/18 06:12 08:31 09:47 WBC RBC Hgb Hct MCV MCH MCHC RDW Plt Count MPV Prelim Diff (Auto) WBC Differential Seg Neuts % (Manual) Band Neuts % (Manual) Lymphocytes % (Manual) Monocytes % (Manual) Metamyelocytes % (Man) Myelocytes % (Man) Promyelocytes % (Man) Blast Cells % (Manual) Plasma Cell % (Manual) Abs Neuts (Manual) Nucleated RBCs/100 WBC Differential Comment Toxic Granulation Toxic Vacuolation Dohle Bodies Platelet Estimate Platelet Morphology Spherocytes Ovalocytes Darwin Cells Acanthocytes (Spur) Keratocytes Puncture Site Right radial Patient Temperature 98.6 O2 Saturation 97 ABG pH 7.56 H* ABG pCO2 32 L ABG pO2 185 H ABG HCO3 28 H ABG O2 Content 16.6 ABG Base Excess 5.6 H ABG Methemoglobin 1.8 Flako Test Present Hemoglobin 12.0 Carboxyhemoglobin 0.4 O2 Delivery Device Ventilator Liter Flow Vent Setting See comments Inspired O2 45 Critical Value Yes Sodium Potassium Chloride Carbon Dioxide Anion Gap BUN Creatinine Estimated GFR POC Glucose 216 H Random Glucose Lactic Acid Calcium Prot Corrected Calcium Phosphorus Magnesium Total Bilirubin AST ALT Alkaline Phosphatase Total Protein Albumin Bld Prod Order Comment 07/01/18 07/01/18 09:50 12:07 WBC RBC Hgb Hct MCV MCH MCHC RDW Plt Count MPV Prelim Diff (Auto) WBC Differential Seg Neuts % (Manual) Band Neuts % (Manual) Lymphocytes % (Manual) Monocytes % (Manual) Metamyelocytes % (Man) Myelocytes % (Man) Promyelocytes % (Man) Blast Cells % (Manual) Plasma Cell % (Manual) Abs Neuts (Manual) Nucleated RBCs/100 WBC Differential Comment Toxic Granulation Toxic Vacuolation Dohle Bodies Platelet Estimate Platelet Morphology Spherocytes Ovalocytes Carney Cells Acanthocytes (Spur) Keratocytes Puncture Site Patient Temperature O2 Saturation ABG pH ABG pCO2 ABG pO2 ABG HCO3 ABG O2 Content ABG Base Excess ABG Methemoglobin Flako Test Hemoglobin Carboxyhemoglobin O2 Delivery Device Liter Flow Vent Setting Inspired O2 Critical Value Sodium Potassium Chloride Carbon Dioxide Anion Gap BUN Creatinine Estimated GFR POC Glucose 170 H Random Glucose Lactic Acid Calcium Prot Corrected Calcium Phosphorus Magnesium Total Bilirubin AST ALT Alkaline Phosphatase Total Protein Albumin Bld Prod Order Comment Cancelled Result Diagrams: 07/01/18 03:00 07/01/18 03:00 Microbiology: Microbiology 06/30/18 16:30 Gram Stain - Final Sputum - Endotracheal Sputum Culture - Preliminary No growth in 24 hours 06/27/18 10:50 Aerobic Blood Culture - Preliminary Blood - Peripheral No growth in 4 days Anaerobic Blood Culture - Preliminary No growth in 4 days 06/27/18 10:45 Aerobic Blood Culture - Preliminary Blood - Peripheral No growth in 4 days Anaerobic Blood Culture - Preliminary No growth in 4 days 06/30/18 13:08 Stool Occult Blood (EPIFANIO) - Final Stool Hemoccult negative 06/25/18 12:10 Aerobic Blood Culture - Final Blood - Peripheral Anaerobic Blood Culture - Final QNS - See aerobic report. 06/27/18 16:55 Urine Culture - Final Clean Catch Urine No growth in 48 hours Imaging: Impressions Chest X-Ray 07/01/18 06:00 CONCLUSION: 1. Stable ETT and left IJ central line. 2. Improved bilateral perihilar upper lung zone airspace disease. 3. Persistent right lower lung zone airspace disease. Procedures: 06/26/18 - LIJ placement 06/29/18 - intubated Assessment and Plan - Disease Oriented Problem List (1) Rectal cancer - Symptom Scale (1) Pain 0-10 Scale: Unable to quantify (2) Debility 0-10 Scale: Unable to quantify (3) Dyspnea 0-10 Scale: Unable to quantify Pertinent Non-Medical Issues: Psychosocial: Ms. Barraza is currently though her is living in a [facility] with dementia. She is originally from [place] but has been living in [place] for greater than 5 years. She has 2 biological daughters and multiple stepchildren with her . She is described as a very energetic and caring woman. Spiritual:Mosque Legal: The patient is no longer able to participate in her own medical care. Her family has provided a documented living will that names her daughters Harper and Maile as surrogates Ethical issues impacting care: There are no known ethical issues impacting care at this time. Important Contacts: Maile Ajay, daughter/HCP [phone] Harper Matt, daughter/HCP [phone] Prognosis: The patient currently has a poor prognosis. Though her cancer may be treatable she is currently too debilitated to undergo any type of aggressive chemotherapy or radiation therapy. She is at risk for further decline and decompensation due to sepsis, protein calorie malnutrition, atrial fibrillation, etc. She is at risk for further respiratory and cardiac decline, further debility, and . Code Status: Full Code Plan: * LEGAL DECISION MAKER: Patient currently intubated and unable to participate in decision-making. Living will names daughter Madison is primary HCS, other daughter Kristal is secondary. * GOALS: Family wishes to monitor patient in the coming days for improvement versus deterioration. Goals remain aggressive at this time, including full code. Family would like to give the patient until Saturday to monitor for signs of improvement, wish to meet again on Saturday to reevaluate continued aggressive treatment versus de-escalation and withdrawal. They had indicated they might wish to proceed with compassionate withdrawal of life support if patient does not experience significant improvement towards recovery. * CODE STATUS: Full code * SYMPTOMS: Debility - the family and patient state she has had a rapid decline physical ability during this hospital admission. This is multifactorial given her protein calorie malnourishment and sepsis. Has recently been started on TPN. Cdiff colitis. If goals remain aggressive, needs to be started on tube feeding. Dyspnea - currently mechanically ventilated, is slightly tachypneic. Follow current recommendations from critical care, Versed gtt being titrated for comfort Painpreviously used Percocet without good relief has been switched to Dilaudid since being in the ICU. In light of hypotension due to sepsis has not received. Is currently using barrier cream and Silvadene for topical pain relief after bowel movements. [facility] sedation. May need to revisit opioid use if patient able to maintain BP * Palliative care will continue to follow during hospital course as condition evolves, to assist patient/decision maker with understanding of medical conditions, weighing benefits/burdens of treatment options, for clarification of goals of treatment. Additionally will assist with any symptoms of palliative concern. Attestation Attestation: To help prompt me to consider important information that might be impacting today's encounter and assessment, information from prior notes written by myself or my colleagues may have been "brought forward" into today's note. My signature on this note, however, is an attestation that I personally performed the exam, history, and/or decision-making noted today, and, unless otherwise indicated, the interactions with patient, family, and staff as well as the review of records all occurred today. I also attest that the listed assessment and stated plan reflect my best clinical judgment today based on the combination of historical information, prior notes, and today's exam/ interactions. When time spent is documented, it refers only to time spent today by the signer, or if indicated, combined time spent today by collaborating physician/nurse practitioner.
[2018-07-01] MEDS: Micafungin Inj 150 MG in Sodium Chlor 0.9% Inj 100 ML IV.SIG SCH (17:57)
--- NOTE | 2018-07-01 18:20 | P.PNADD ---
Addendum to Inpatient Note Additional information: Pt seen aound 1800 full note to follow tonja RN possible w/d tomorrow remains on vent off pressors jaunie refratory trombocytopenia
[2018-07-01] MEDS: [UNRECOGNIZED DRUG - OTHER] IV.SIG SCH ×9 (21:10)
[2018-07-01] MEDS: SODIUM CHLORIDE IV.SIG SCH ×9 (21:10)
[2018-07-01] MEDS: SODIUM ACETATE IV.SIG SCH ×9 (21:10)
--- NOTE | 2018-07-01 23:27 | P.PNID ---
Subjective Remarks: Delayed entry Pt seen today aound 1800 dw RN possible w/d tomorrow remains on vent off pressors unresponsie refratory trombocytopenia Antibiotics: meropenem vanco PO flagyl micafungin Past Medical History: anal cancer Allergies/Adverse Reactions: Allergies No Known Allergies Allergy (Verified 06/25/18 12:06) Objective Vital Signs 07/01/18 00:00 07/01/18 00:03 07/01/18 03:54 Temperature 98.5 F Pulse Rate 89 89 92 H Respiratory Rate 24 22 23 Blood Pressure 124/77 Pulse Oximetry 99 98 98 07/01/18 04:00 07/01/18 08:02 07/01/18 10:52 Temperature 98.0 F Pulse Rate 91 H 100 H 97 H Respiratory Rate 24 26 H 27 H Blood Pressure 120/78 Pulse Oximetry 98 99 98 07/01/18 11:00 07/01/18 11:15 07/01/18 11:30 Temperature Pulse Rate 98 H 100 H 100 H Respiratory Rate 25 H 25 H 25 H Blood Pressure 129/74 122/73 119/71 Pulse Oximetry 98 98 98 07/01/18 11:45 07/01/18 12:00 07/01/18 12:15 Temperature Pulse Rate 101 H 105 H 106 H Respiratory Rate 26 H 26 H 29 H Blood Pressure 117/69 126/75 129/77 Pulse Oximetry 98 99 98 07/01/18 12:30 07/01/18 12:45 07/01/18 13:00 Temperature Pulse Rate 108 H 106 H 106 H Respiratory Rate 29 H 27 H 27 H Blood Pressure 126/77 121/76 126/76 Pulse Oximetry 98 97 98 07/01/18 13:15 07/01/18 13:30 07/01/18 13:45 Temperature Pulse Rate 107 H 103 H 107 H Respiratory Rate 28 H 26 H 28 H Blood Pressure 130/74 108/66 127/76 Pulse Oximetry 98 99 98 07/01/18 14:00 07/01/18 14:15 07/01/18 14:30 Temperature Pulse Rate 108 H 104 H 108 H Respiratory Rate 29 H 26 H 31 H Blood Pressure 131/75 128/72 134/77 Pulse Oximetry 99 99 98 07/01/18 14:45 07/01/18 15:00 07/01/18 15:12 Temperature 98.2 F Pulse Rate 107 H 103 H 105 H Respiratory Rate 28 H 28 H 28 H Blood Pressure 130/75 117/66 117/66 Pulse Oximetry 99 99 07/01/18 15:15 07/01/18 15:30 07/01/18 15:45 Temperature 98.7 F Pulse Rate 104 H 106 H 105 H Respiratory Rate 29 H 26 H 27 H Blood Pressure 122/74 119/74 122/73 Pulse Oximetry 99 99 99 07/01/18 16:00 07/01/18 16:15 07/01/18 16:30 Temperature Pulse Rate 102 H 102 H 106 H Respiratory Rate 25 H 28 H 29 H Blood Pressure 115/66 107/67 129/73 Pulse Oximetry 98 99 98 07/01/18 16:45 07/01/18 17:00 07/01/18 20:43 Temperature Pulse Rate 105 H 104 H 101 H Respiratory Rate 28 H 33 H 21 Blood Pressure 124/70 122/68 Pulse Oximetry 98 98 98 Intake & Output 07/01/18 07/01/18 07/02/18 06:59 18:59 06:59 Intake Total 1481.52 / 1481.52 784 / 784 2068.0187 / 2068.0187 Output Total 1750 / 1750 1650 / 1650 Balance -268.48 / -268.48 -866 / -866 2068.0187 / 2068.0187 Weight 57 kg Intake: IV 1481.52 / 1481.52 450 / 450 2068.0187 / 2068.0187 Cordarone Inj 450 MG In D5W Inj 250 / 250 241 ML @ 1 MG/MIN 33.33 mls/hr IV.CONT TITRATE PRN Rx#: [id number] Versed Inj 50 mg In 50 ml @ 2 50 / 50 MG/HR 2 mls/hr IV.CONT TITRATE PRN Rx#:[id number] 1/2 Normal Saline Inj 1,000 ML 75 / 75 @ 75 mls/hr IV.CONT .[id number] [facility]ABLO Rx#:[id number] Flexbumin 25% Inj 100 ML @ 60 100 / 100 mls/hr IV.SIG Q12H [facility] Rx#: [id number] Intralipid 20% Inj 250 ML @ 31. 250 / 250 25 mls/hr IV.SIG Q24H [facility] Rx#: [id number] Merrem Inj 1,000 MG In NS Inj 100 / 100 100 / 100 100 ML @ 200 mls/hr IV.SIG Q12H [facility] Rx#:[id number] Mycamine Inj 150 MG In NS Inj 100 / 100 100 ML @ 100 mls/hr IV.SIG Q24H [facility] Rx#:[id number] MVI-12 Inj 10 ML Folvite Inj 1 506.52 / 506.52 MG In Clinimix E 5%/D20W Inj 2, 000 ML @ 42.214 mls/hr IV.SIG Q24H [facility] Rx#:[id number] KCl 40 mEq Premix Inj 40 meq In 100 / 100 100 ml @ 25 mls/hr IV.SIG Q2H PRN Rx#:[id number] Sodium Chloride 23.4% Inj 5.5 2068.0187 / 2068.0187 MEQ Sodium Acetate Inj 59 MEQ KCl Inj 40 MEQ Magnesium Chloride Inj 10 MEQ Calcium Chloride Inj 9 MEQ Sodium Phosphate Inj 40 MEQ MVI-12 Inj 10 ML Folvite Inj 1 MG In Clinimix 5%/D20W Inj 2,000 ML @ 42 mls/hr IV.SIG Q24H [facility] Rx#: [id number] Flagyl 500 MG Inj 100 ML @ 100 200 / 200 100 / 100 mls/hr IV.SIG Q8H [facility] Rx#: [id number] Intake (Blood Product) Amt 334 / 334 Plt Pheresis A Leukoreduced 334 / 334 Unit [id number] Output: Urine Amount (Catheter) 1750 / 1750 1650 / 1650 Indwelling Urethral Catheter 1750 / 1750 1650 / 1650 Other: Date of Last Bowel Movement 06/30/18 07/01/18 # Bowel Movements 1 06/30/18 16:30 Sputum - Endotracheal Gram Stain - Final 06/30/18 16:30 Sputum - Endotracheal Sputum Culture - Preliminary No growth in 24 hours 06/27/18 10:50 Blood - Peripheral Aerobic Blood Culture - Preliminary No growth in 4 days 06/27/18 10:50 Blood - Peripheral Anaerobic Blood Culture - Preliminary No growth in 4 days 06/27/18 10:45 Blood - Peripheral Aerobic Blood Culture - Preliminary No growth in 4 days 06/27/18 10:45 Blood - Peripheral Anaerobic Blood Culture - Preliminary No growth in 4 days 06/30/18 13:08 Stool Stool Occult Blood (EPIFANIO) - Final Hemoccult negative 06/25/18 12:10 Blood - Peripheral Aerobic Blood Culture - Final 06/25/18 12:10 Blood - Peripheral Anaerobic Blood Culture - Final QNS - See aerobic report. 06/27/18 16:55 Clean Catch Urine Urine Culture - Final No growth in 48 hours Lab - Hematology Results 06/30/18 07/01/18 05:23 03:00 WBC 16.0 H 15.3 H RBC 4.11 4.92 Hgb 10.9 L 13.0 D Hct 31.5 L 38.7 MCV 76.6 L 78.6 L MCH 26.6 L 26.4 L MCHC 34.7 33.5 RDW 19.3 H 19.4 H Plt Count 15 L* 12 L* MPV 11.7 H 10.8 Prelim Diff (Auto) Manual diff required Manual diff required WBC Differential Manual diff final Manual diff final Seg Neuts % (Manual) 62 63 Band Neuts % (Manual) 19 H 23 H Lymphocytes % (Manual) 3 L 5 L Monocytes % (Manual) 8 7 Metamyelocytes % (Man) 2 H 1 Myelocytes % (Man) 4 H Promyelocytes % (Man) 1 H Blast Cells % (Manual) 1 H Plasma Cell % (Manual) 1 H Abs Neuts (Manual) 13.9 H 13.5 H Nucleated RBCs/100 WBC 3 H Differential Comment . . Toxic Vacuolation Present H Dohle Bodies Present H Platelet Estimate Rare L Rare L Platelet Morphology Normal Normal Spherocytes Occ H Ovalocytes 1+ H 1+ H Acanthocytes (Spur) 1+ H Keratocytes Occ H Occ H Lab - Chemistry Results 06/29/18 06/30/18 06/30/18 23:35 05:23 05:43 Sodium Potassium Chloride Carbon Dioxide Anion Gap BUN Creatinine Estimated GFR POC Glucose 253 H 209 H Random Glucose Lactic Acid Calcium Prot Corrected Calcium Phosphorus Magnesium 1.7 Total Bilirubin AST ALT Alkaline Phosphatase Total Protein Albumin 06/30/18 06/30/18 06/30/18 08:00 08:00 08:00 Sodium 151 H Potassium 3.0 L D Chloride 119 H Carbon Dioxide 27.0 Anion Gap 5 BUN 67 H Creatinine 1.28 H Estimated GFR 41 L POC Glucose Random Glucose 205 H Lactic Acid 2.0 Calcium 7.0 L* Prot Corrected Calcium 8.1 L Phosphorus 2.9 Magnesium 1.8 Total Bilirubin 1.1 H AST 43 H ALT 35 Alkaline Phosphatase 68 Total Protein 5.1 L Albumin 2.9 L 06/30/18 06/30/18 07/01/18 13:40 18:13 00:29 Sodium Potassium Chloride Carbon Dioxide Anion Gap BUN Creatinine Estimated GFR POC Glucose 190 H 230 H 181 H Random Glucose Lactic Acid Calcium Prot Corrected Calcium Phosphorus Magnesium Total Bilirubin AST ALT Alkaline Phosphatase Total Protein Albumin 07/01/18 07/01/18 07/01/18 03:00 06:12 12:07 Sodium 154 H Potassium 3.9 D Chloride 113 H Carbon Dioxide 30.5 Anion Gap 11 BUN 65 H Creatinine 1.16 H Estimated GFR 46 L POC Glucose 216 H 170 H Random Glucose 225 H Lactic Acid Calcium 6.8 L* Prot Corrected Calcium 7.5 L Phosphorus 2.4 L Magnesium 1.6 Total Bilirubin 1.2 H AST 38 H ALT 44 Alkaline Phosphatase 92 Total Protein 5.8 L D Albumin 2.8 L 07/01/18 07/01/18 07/01/18 16:35 21:00 21:28 Sodium Potassium Chloride Carbon Dioxide Anion Gap BUN Creatinine Estimated GFR POC Glucose 198 H 47 L* 286 H Random Glucose Lactic Acid Calcium Prot Corrected Calcium Phosphorus Magnesium Total Bilirubin AST ALT Alkaline Phosphatase Total Protein Albumin Imaging: ITS Impressions Abdomen/Pelvis CT 06/28/18 00:00 CONCLUSION: 1. Colonic diverticula. 2. Persistent 4.6 cm left adnexal cystic mass. 3. Distended gallbladder. 4. Cortical calcic location seen at the left kidney with some cortical thinning. There are multiple left-sided renal masses likely related to cysts although they're nonspecific on this noncontrast CT examination. Chest CT 06/28/18 00:00 CONCLUSION: 1. Development of moderate bilateral pleural effusions being worse in the right. 2. Areas of consolidation or atelectasis at the posterior lower lungs. Given the effusions is likely represent areas of atelectasis. 3. Consolidation and bronchiectasis in the right upper lung. This was present on the prior exam. It appears to progress. 4. Distended esophagus throughout the chest. Head CT 06/28/18 00:00 CONCLUSION: Negative noncontrast head CT. . Venous Doppler Study 06/29/18 00:00 CONCLUSION: Mild nonocclusive thrombus in the right axillary vein to the brachial vein. Chest X-Ray 07/01/18 06:00 CONCLUSION: 1. Stable ETT and left IJ central line. 2. Improved bilateral perihilar upper lung zone airspace disease. 3. Persistent right lower lung zone airspace disease. Physical Exam: GENERAL: unresponsive intubated SKIN: Warm and dry. No rash HEAD: Atraumatic. Normocephalic. EYES: Pupils equal and round. No scleral icterus. No injection or drainage. ENT: No nasal bleeding or discharge. Mucous membranes very dry and crusted secretions in oropharynx is present NECK: Trachea midline. No JVD. no edema erythema of the neck CARDIOVASCULAR: Regular rate and rhythm. No murmurs RESPIRATORY: No accessory muscle use. Clear to auscultation. Breath sounds equal bilaterally. GASTROINTESTINAL: Abdomen soft, no reaction to palpation, + mildly distended. Hepatic and splenic margins not palpable. MUSCULOSKELETAL: Extremities without clubbing, less of edema. No obvious deformities. + non pitting RUE edema NEUROLOGICAL: unresponsive PSYCHIATRIC: unable to asseess Assessment and Plan - Plan Stage II anal canal carcinoma, undergoing XRT, chemo PSAE sepsis on presentation, source ? PICC vs - thompson S UTI Sepsis' C.diff colitis US RUE showed non occlusive thrombus change meropenem to cefepime Fu sensitivity of PSAE cont Flagyl IV cont oral vanco 500 dc Micafungin fu blood clx tonja RN
[2018-07-02] MEDS: Insulin NovoLIN Regular Correctional Sugar Inj SQ SCH ×6 (00:46→20:51)
[2018-07-02] MEDS: Oral Hygiene Kit OROPHARYNG SCH ×4 (00:50→16:17)
[2018-07-02] MEDS: Midazolam 50 MG/50 ML Inj 50 MG/50 ML BAG IV.CONT PRN (03:48)
[2018-07-02] MEDS: Albumin Human 25% Inj 100 ML IV.SIG SCH ×2 (03:49→17:57)
[2018-07-02] MEDS: Dextrose 5% in Water Inj 1,000 ML IV.CONT SCH (06:26)
--- NOTE | 2018-07-02 07:41 | P.PNCC ---
Subjective Subjective Remarks/Hospital Course: 72-year-old female with past medical history of anorectal squamous cell carcinoma, mixed connective tissue disease (SLE, Reynaud's, Polymyositis), remote cervical cancer status post hysterectomy, hypothyroid . She originally developed anal pain and bleeding in January of 2018. She was referred to Dr. Coelho who performed biopsy of anal mass on 04/25/18 which demonstrated invasive squamous cell carcinoma. Outpatient PET reportedly showed no local or distant metastatic disease. She has been undergoing radiation therapy under the care of Dr Concepcion. Concurrent chemotherapy is planned for week 1 and 5 of radiation; and she completed first chemo cycle 06/13/18. She has reportedly been having loose watery stools for several days, difficult to determine exact time of onset. She has also had abdominal pain. When she presented for radiation treatment on 06/25, she was weak and hypotensive so she was sent to the ED. She was pancytopenic with ANC 768. CT abd/pelvis showed fluid filled small bowel c/ w partial SBO or ileus. She was admitted to hospitalist service. Blood cultures were obtained 09/25 which have now resulted + pseudomonas in 09/26 bottles. She was started on cefepime 2 gram IV and vancomycin per hematology. Tmax was 101.2 [employer] consult has been requested. She has a RUE PICC placed 06/09 which does not have overt clinical signs of infection, but will be removed. 06/27 Patient is lethargic on Amio drip ( HR now controlled) Afebrile. 06/28 patient lying on bed very lethargic remains on amiodarone infusion. Appears very critical. WBC count is improved to 7.8, platelet count of 35. BUN /creatinine further elevated at 66/1.36. Patient not to be weaker on the right upper and lower extremity-I do not see any history of CVA. Will check CT of the head stat. Patient is not a candidate for TPA due to severe thrombocytopenia, so will not initiate stroke alert. Breathing slightly labored 06/29: Clinically deteriorating very lethargic tachypneic. ABG shows significant hypoxia. Chest x-ray shows worsening bilateral infiltrates/edema. I had discussed with daughters yesterday they wanted to continue full code, patient is encephalopathy again unable to make any decisions at this time. Give additional 20 mg of IV Lasix and continue scheduled 20 mg twice daily. If not improving in the next 45-60 minutes will need endotracheal intubation 06/30: Severely septic lady who is intubated for severe respiratory failure on . Likely has acute lung injury from severe sepsis. FiO2 remains high at 65% to maintain sat above 90%. Chest x-ray is pending at this time WBC count 16 , sodium is 150, BUN 67 creatinine 1.3. Urine output adequate with Lasix 07/01 Patient remains intubated and sedated with Versed drip 3mg/hr, on Amio drip and TPN. s/p 1u PLT pheresis yesterday PLT count 12 this morning. 07/02 Patient is sedated with Versed and intubated. Afebrile, on Amio drip.s/p 1u PLT transfusion yesterday Objective Vital Signs / I&O: Vital Signs 07/01/18 08:02 07/01/18 10:52 07/01/18 11:00 Temperature Pulse Rate 100 H 97 H 98 H Respiratory Rate 26 H 27 H 25 H Blood Pressure 129/74 Pulse Oximetry 99 98 98 07/01/18 11:15 07/01/18 11:30 07/01/18 11:45 Temperature Pulse Rate 100 H 100 H 101 H Respiratory Rate 25 H 25 H 26 H Blood Pressure 122/73 119/71 117/69 Pulse Oximetry 98 98 98 07/01/18 12:00 07/01/18 12:15 07/01/18 12:30 Temperature Pulse Rate 105 H 106 H 108 H Respiratory Rate 26 H 29 H 29 H Blood Pressure 126/75 129/77 126/77 Pulse Oximetry 99 98 98 07/01/18 12:45 07/01/18 13:00 07/01/18 13:15 Temperature Pulse Rate 106 H 106 H 107 H Respiratory Rate 27 H 27 H 28 H Blood Pressure 121/76 126/76 130/74 Pulse Oximetry 97 98 98 07/01/18 13:30 07/01/18 13:45 07/01/18 14:00 Temperature Pulse Rate 103 H 107 H 108 H Respiratory Rate 26 H 28 H 29 H Blood Pressure 108/66 127/76 131/75 Pulse Oximetry 99 98 99 07/01/18 14:15 07/01/18 14:30 07/01/18 14:45 Temperature Pulse Rate 104 H 108 H 107 H Respiratory Rate 26 H 31 H 28 H Blood Pressure 128/72 134/77 130/75 Pulse Oximetry 99 98 99 07/01/18 15:00 07/01/18 15:12 07/01/18 15:15 Temperature 98.2 F Pulse Rate 103 H 105 H 104 H Respiratory Rate 28 H 28 H 29 H Blood Pressure 117/66 117/66 122/74 Pulse Oximetry 99 99 07/01/18 15:30 07/01/18 15:45 07/01/18 16:00 Temperature 98.7 F Pulse Rate 106 H 105 H 102 H Respiratory Rate 26 H 27 H 25 H Blood Pressure 119/74 122/73 115/66 Pulse Oximetry 99 99 98 07/01/18 16:15 07/01/18 16:30 07/01/18 16:45 Temperature Pulse Rate 102 H 106 H 105 H Respiratory Rate 28 H 29 H 28 H Blood Pressure 107/67 129/73 124/70 Pulse Oximetry 99 98 98 07/01/18 17:00 07/01/18 17:15 07/01/18 17:30 Temperature Pulse Rate 104 H 104 H 100 H Respiratory Rate 33 H 36 H 40 H Blood Pressure 122/68 129/72 108/57 L Pulse Oximetry 98 98 98 07/01/18 17:45 07/01/18 18:00 07/01/18 19:00 Temperature Pulse Rate 103 H 103 H 103 H Respiratory Rate 45 H 28 H 28 H Blood Pressure 123/68 130/71 127/73 Pulse Oximetry 98 98 98 07/01/18 20:00 07/01/18 20:43 07/01/18 21:00 Temperature 99.4 F Pulse Rate 97 H 101 H 100 H Respiratory Rate 25 H 21 25 H Blood Pressure 116/65 123/74 Pulse Oximetry 98 98 98 07/01/18 22:00 07/01/18 23:00 07/01/18 23:42 Temperature Pulse Rate 94 H 97 H 96 H Respiratory Rate 25 H 24 22 Blood Pressure 109/63 121/72 Pulse Oximetry 98 98 98 07/02/18 00:00 07/02/18 01:00 07/02/18 02:00 Temperature Pulse Rate 97 H 98 H 95 H Respiratory Rate 23 25 H 24 Blood Pressure 124/70 124/70 127/73 Pulse Oximetry 98 98 97 07/02/18 03:00 07/02/18 04:00 07/02/18 04:24 Temperature Pulse Rate 94 H 93 H 87 Respiratory Rate 24 23 21 Blood Pressure 127/73 Pulse Oximetry 98 97 97 Intake & Output 07/01/18 07/02/18 07/02/18 18:59 06:59 18:59 Intake Total 934 / 934 4068.0187 / 4068.0187 Output Total 1650 / 1650 2475 / 2475 Balance -716 / -716 1593.0187 / 1593.0187 Weight 57 kg Intake: IV 600 / 600 4068.0187 / 4068.0187 Cordarone Inj 450 MG In D5W Inj 250 / 250 250 / 250 241 ML @ 1 MG/MIN 33.33 mls/hr IV.CONT TITRATE PRN Rx#: [id number] D5W Inj 1,000 ML @ 50 mls/hr IV 1000 / 1000 .CONT .Q20H [facility] Rx#:[id number] Versed Inj 50 mg In 50 ml @ 2 50 / 50 MG/HR 2 mls/hr IV.CONT TITRATE PRN Rx#:[id number] Flexbumin 25% Inj 100 ML @ 60 100 / 100 100 / 100 mls/hr IV.SIG Q12H [facility] Rx#: [id number] Maxipime Inj 2,000 MG In NS Inj 100 / 100 100 ML @ 200 mls/hr IV.SIG Q8H [facility] Rx#:[id number] Intralipid 20% Inj 250 ML @ 31. 250 / 250 25 mls/hr IV.SIG Q24H [facility] Rx#: [id number] Merrem Inj 1,000 MG In NS Inj 100 / 100 100 / 100 100 ML @ 200 mls/hr IV.SIG Q12H [facility] Rx#:[id number] Mycamine Inj 150 MG In NS Inj 100 / 100 100 ML @ 100 mls/hr IV.SIG Q24H [facility] Rx#:[id number] Sodium Chloride 23.4% Inj 5.5 2067.018 / 2067.018 MEQ Sodium Acetate Inj 59 MEQ KCl Inj 40 MEQ Magnesium Chloride Inj 10 MEQ Calcium Chloride Inj 9 MEQ Sodium Phosphate Inj 40 MEQ MVI-12 Inj 10 ML Folvite Inj 1 MG In Clinimix 5%/D20W Inj 2,000 ML @ 42 mls/hr IV.SIG Q24H [facility] Rx#: [id number] Flagyl 500 MG Inj 100 ML @ 100 100 / 100 100 / 100 mls/hr IV.SIG Q8H [facility] Rx#: [id number] Intake (Blood Product) Amt 334 / 334 Plt Pheresis A Leukoreduced 334 / 334 Unit [id number] Output: Urine Amount (Catheter) 1650 / 1650 2475 / 2475 Indwelling Urethral Catheter 1650 / 1650 2475 / 2475 Other: Date of Last Bowel Movement 07/01/18 07/01/18 # Bowel Movements 1 Result Diagrams: 07/01/18 03:00 07/01/18 03:00 Other Results: Laboratory Results - last 12 hr 07/01/18 07/01/18 07/02/18 21:00 21:28 00:37 POC Glucose 47 L* 286 H 182 H 07/02/18 03:48 POC Glucose 180 H Imaging: Abdomen/Pelvis CT 06/28/18 00:00 CONCLUSION: 1. Colonic diverticula. 2. Persistent 4.6 cm left adnexal cystic mass. 3. Distended gallbladder. 4. Cortical calcic location seen at the left kidney with some cortical thinning. There are multiple left-sided renal masses likely related to cysts although they're nonspecific on this noncontrast CT examination. Chest CT 06/28/18 00:00 CONCLUSION: 1. Development of moderate bilateral pleural effusions being worse in the right. 2. Areas of consolidation or atelectasis at the posterior lower lungs. Given the effusions is likely represent areas of atelectasis. 3. Consolidation and bronchiectasis in the right upper lung. This was present on the prior exam. It appears to progress. 4. Distended esophagus throughout the chest. Head CT 06/28/18 00:00 CONCLUSION: Negative noncontrast head CT. . Venous Doppler Study 06/29/18 00:00 CONCLUSION: Mild nonocclusive thrombus in the right axillary vein to the brachial vein. Chest X-Ray 07/01/18 06:00 CONCLUSION: 1. Stable ETT and left IJ central line. 2. Improved bilateral perihilar upper lung zone airspace disease. 3. Persistent right lower lung zone airspace disease. Objective Remarks: GENERAL: Patient is 72 lying in bed ,Critically ill, intubated sedated SKIN: Warm and dry. HEAD: Normocephalic. EYES: No scleral icterus. No injection or drainage. Anemic ENT: Oral mucosa is dry. Orotracheally intubated NECK: Supple, trachea midline. No JVD or lymphadenopathy. CARDIOVASCULAR: RRR without murmurs, gallops, or rubs. RESPIRATORY: B/l equal air entry GASTROINTESTINAL: Abdomen soft, non-tender, nondistended. MUSCULOSKELETAL: No cyanosis, or edema. Neuro: Intubated sedated moves extremities intermittently,. Assessment and Plan - Assessment and Plan Plan: NEURO: Acute metabolic encephalopathy secondary to sepsis Dilaudid prn pain. CT head negative for acute findings Monitor neuro status closely On Versed drip for sedation. Daily sedation vacation. RESP: Acute hypoxemic respiratory failure Pulmonary edema Acute lung injury Intubated and placed on mechanical ventilation 06/29/2018 On PRVC RR 12, TV 450, IT:1.0, PEEP:5, FIO2 40% Continue bronchodilators, SBT daily as ike CXR 07/01: Improved bilateral perihilar upper lung zone airspace disease. Persistent right lower lung zone airspace disease. CV: Atrial fibrillation with RVR s/p 2 L normal saline bolus Currently on IV Lasix 20 mg every 12 for pulmonary edema Monitor HR and BP maintain MAP>65mmHg d/c Amio drip Continue TPN. GI: C. difficile colitis Ileus Squamous cell carcinoma of the anus Moderate protein energy malnutrition NPO for bowel rest. Continue TPN consider weaning off TPN and start tube feeds if ok with CRS CRS is following- Dr. Coelho FEN/RENAL: GREY Hypernatremia Monitor intake and output. Monitor electrolytes. Replace electrolytes as indicated per ICU electrolyte replacement protocol. On Lasix 2mg BID, D5W@50ml/hr Monitor sodium level ID: Pseudomonas bacteremia 06/25 Severe sepsis with probable GI source C Diff Continue abx- Vancomycin 500 mg p.o. every 6 hours and IV Flagyl for C. difficile. Cefepime Blood culture growing Pseudomonas 06/25. Removed PICC 06/26. HEME: Squamous cell carcinoma anorectal Pancytopenia SCC anus - s/p chemo completed 06/13. Radiation therapy on hold per Dr. Concepcion. Monitor CBC, coags. Plt and blood product transfusion per heme. s/p 1u PLT transfusion yesterday ENDO: Hyperglycemia On SSI medium scale with accuchecks for glycemic control On Synthroid 50 mcg daily. TSH:0.98 on 06/27 PROPH: SCD for DVT prophylaxis. On Protonix 40mg Q12 for GI prophylaxis Doppler US RUE 06/29: Mild nonocclusive thrombus in the right axillary vein to the brachial vein ACCESS: Removed right upper extremity PICC 06/26. L IJ CVL placed 06/26 Palliative care following Full code CCT 35 mins excluding procedures
[2018-07-02 08:46] LABS: Albumin 3.6 g/dL (3.4-5.0); Calcium 7.2 mg/dL (8.5-10.1); Carbon Dioxide 31.2 meq/L (21.0-32.0); Magnesium 1.7 mg/dL (1.5-2.5); Phosphorus 2.9 mg/dL (2.5-4.9); Total Protein 6.2 g/dL (6.4-8.2)
[2018-07-02] MEDS: Levothyroxine 50 MCG Tablet PO SCH (08:47)
[2018-07-02] MEDS: Pantoprazole Inj 40 MG Vial IV.PUSH SCH ×2 (08:48→20:53)
[2018-07-02] MEDS: Chlorhexidine 0.12% Oral Kit 15 ML UDC OROPHARYNG SCH ×2 (08:48→20:51)
[2018-07-02 08:49] LABS: Hematocrit 31.4 % (35.0-46.0); Hemoglobin 10.3 gm/dL (11.6-15.3); Mean Corpuscular HGB Conc 32.8 % (32.0-36.0); Mean Corpuscular Hemoglobin 26.4 pg (27.0-34.0); Mean Corpuscular Volume 80.4 fL (80.0-100.0); Mean Platelet Volume 9.8 fL (7.0-11.0); Platelet Count 38 th/mm3 (150-450); Red Cell Distribution Width 19.7 % (11.6-17.2); White Blood Count 16.9 th/mm3 (4.0-11.0)
[2018-07-02] MEDS: Sodium Chloride 0.9% 2 ML Flush BID IV.FLUSH SCH ×2 (08:49→20:53)
--- NOTE | 2018-07-02 09:06 | P.PNCS ---
Subjective Interval history: Stable VS. Remains on ventilator Objective Result Diagrams: 07/01/18 03:00 07/01/18 03:00 Objective Remarks: Intubated and sedated Abd: flat,soft,not distended Assessment and Plan - Assessment (1) Squamous cell carcinoma of anal canal Code(s): C21.1 - Malignant neoplasm of anal canal Status: Acute (2) Diarrhea Code(s): R19.7 - Diarrhea, unspecified Status: Acute - Plan Care per Critical Care Medicine/Oncology OK for Tube feeds from CRS standpoint Will follow intermittently as I have nothing to add from a surgical standpoint
[2018-07-02 09:08] LABS: Potassium 2.9 meq/L (3.5-5.1)
[2018-07-02] MEDS: Potassium Chlor 40 mEq Premix 40 MEQ/100 ML PIGGYBACK IV.SIG PRN ×2 (10:00→12:00)
--- NOTE | 2018-07-02 11:54 | P.PNPAL ---
Reason for Visit Reason for visit: a. To assist with evaluation and management of symptoms including: pain, dyspnea b. To assist medical decision maker(s) with: better understanding of current medical conditions; weighing benefits/burdens of medical treatment options; making medical treatment decisions. Subjective Subjective/Interval History: Pt seen today to follow up on comfort, goals. Remains on [facility] vent in ICU. sedation off, tolerating CPAP for several hrs. Minimal responsive per nursing report. s/p plt transfusion yesterday-- plt today = 38, hgb 10.3, down from 13, hct 31.4. WBC up to 16.9. K+2.9, repletion per critical care. She is seen today in room no visitors present. Nurse informs that daughter was in earlier,she advised that other family traveling here for f/up meeting today is experiencing weather related travel delay, hopes to be here around 3pm for meeting w palliative. They will wish to meet w palliative upon this arrival. Pt is minimally responsive to my exam; eye opening to pain. Does not track/ Does not follow commands. Slight withdrawal BLE to pain, no response uppers. + becomes tense with abdominal palpation. Mildly tachypneic on vent, 25-26. + beige secretions from mouth. nursing to call me upon family arrival. Family/Friend Interactions: 1630 later notified when daughter arrived. Met with daughter Harper ([facility]), and pt brother. They report they were just able to speak w Dr Ramirez who indicated pt made some improvements. Review w them most recent diagnostics, labs, recent KUB findings, CPAP trial. Review she is clinically stable, no deterioration in the past day, will need to cont to monitor CBC, may still require transfusions. review she remains at risk for complication/setback. They indicate she would not want to persist on vent if not significantly improving with good chance to recover, however given she has remained stable they would like to cont aggressive tx a few more days and cont to monitor for improvement vs deterioration. They wish to meet again Saturday to review condition, goals. Advance Directives Living Will: Copy in medical record Advance Directives Date on File: 06/30/18 Health Care Surrogate Name and Number: Harper Matt [phone] Maile Moss [phone] Documented care wishes:: The family provided a documented living well. States that she has a terminal condition or end-stage condition or in a persistent vegetative state she does not wish to have life prolonging procedures. She requested that be withheld or withdrawn when the application of such procedures would serve only to prolong artificially the process of dying and that she be permitted to naturally with only the administration of medication or the performance of any medical procedure deemed necessary to provide her. with comfort care or to alleviate pain. She does name her daughters Harper Matt and Maile Moss as her healthcare surrogates, Tisha is primary. Objective Vital Signs: Vital Signs 07/01/18 11:45 07/01/18 12:00 07/01/18 12:15 Temperature Pulse Rate 101 H 105 H 106 H Respiratory Rate 26 H 26 H 29 H Blood Pressure 117/69 126/75 129/77 Pulse Oximetry 98 99 98 07/01/18 12:30 07/01/18 12:45 07/01/18 13:00 Temperature Pulse Rate 108 H 106 H 106 H Respiratory Rate 29 H 27 H 27 H Blood Pressure 126/77 121/76 126/76 Pulse Oximetry 98 97 98 07/01/18 13:15 07/01/18 13:30 07/01/18 13:45 Temperature Pulse Rate 107 H 103 H 107 H Respiratory Rate 28 H 26 H 28 H Blood Pressure 130/74 108/66 127/76 Pulse Oximetry 98 99 98 07/01/18 14:00 07/01/18 14:15 07/01/18 14:30 Temperature Pulse Rate 108 H 104 H 108 H Respiratory Rate 29 H 26 H 31 H Blood Pressure 131/75 128/72 134/77 Pulse Oximetry 99 99 98 07/01/18 14:45 07/01/18 15:00 07/01/18 15:12 Temperature 98.2 F Pulse Rate 107 H 103 H 105 H Respiratory Rate 28 H 28 H 28 H Blood Pressure 130/75 117/66 117/66 Pulse Oximetry 99 99 07/01/18 15:15 07/01/18 15:30 07/01/18 15:45 Temperature 98.7 F Pulse Rate 104 H 106 H 105 H Respiratory Rate 29 H 26 H 27 H Blood Pressure 122/74 119/74 122/73 Pulse Oximetry 99 99 99 07/01/18 16:00 07/01/18 16:15 07/01/18 16:30 Temperature Pulse Rate 102 H 102 H 106 H Respiratory Rate 25 H 28 H 29 H Blood Pressure 115/66 107/67 129/73 Pulse Oximetry 98 99 98 07/01/18 16:45 07/01/18 17:00 07/01/18 17:15 Temperature Pulse Rate 105 H 104 H 104 H Respiratory Rate 28 H 33 H 36 H Blood Pressure 124/70 122/68 129/72 Pulse Oximetry 98 98 98 07/01/18 17:30 07/01/18 17:45 07/01/18 18:00 Temperature Pulse Rate 100 H 103 H 103 H Respiratory Rate 40 H 45 H 28 H Blood Pressure 108/57 L 123/68 130/71 Pulse Oximetry 98 98 98 07/01/18 19:00 07/01/18 20:00 07/01/18 20:43 Temperature 99.4 F Pulse Rate 103 H 97 H 101 H Respiratory Rate 28 H 25 H 21 Blood Pressure 127/73 116/65 Pulse Oximetry 98 98 98 07/01/18 21:00 07/01/18 22:00 07/01/18 23:00 Temperature Pulse Rate 100 H 94 H 97 H Respiratory Rate 25 H 25 H 24 Blood Pressure 123/74 109/63 121/72 Pulse Oximetry 98 98 98 07/01/18 23:42 07/02/18 00:00 07/02/18 01:00 Temperature Pulse Rate 96 H 97 H 98 H Respiratory Rate 22 23 25 H Blood Pressure 124/70 124/70 Pulse Oximetry 98 98 98 07/02/18 02:00 07/02/18 03:00 07/02/18 04:00 Temperature Pulse Rate 95 H 94 H 93 H Respiratory Rate 24 24 23 Blood Pressure 127/73 127/73 Pulse Oximetry 97 98 97 07/02/18 04:24 07/02/18 05:00 07/02/18 06:00 Temperature Pulse Rate 87 92 H 89 Respiratory Rate 21 22 19 Blood Pressure 122/69 124/68 Pulse Oximetry 97 97 97 07/02/18 07:00 07/02/18 07:54 07/02/18 07:55 Temperature Pulse Rate 95 H 88 Respiratory Rate 12 20 12 Blood Pressure 136/70 Pulse Oximetry 97 98 07/02/18 08:00 07/02/18 08:26 07/02/18 09:00 Temperature Pulse Rate 92 H 92 H Respiratory Rate 21 24 Blood Pressure 123/70 131/75 Pulse Oximetry 97 97 97 07/02/18 10:00 07/02/18 11:00 07/02/18 11:16 Temperature Pulse Rate 90 92 H 92 H Respiratory Rate 23 26 H 24 Blood Pressure 118/69 126/74 Pulse Oximetry 97 97 07/02/18 11:17 Temperature Pulse Rate Respiratory Rate Blood Pressure Pulse Oximetry 97 Intake & Output 07/01/18 07/02/18 07/02/18 18:59 06:59 18:59 Intake Total 934 / 934 4068.0187 / 4068.0187 300 / 300 Output Total 1650 / 1650 2475 / 2475 Balance -716 / -716 1593.0187 / 1593.0187 300 / 300 Weight 57 kg Intake: IV 600 / 600 4068.0187 / 4068.0187 300 / 300 Cordarone Inj 450 MG In D5W Inj 250 / 250 250 / 250 100 / 100 241 ML @ 1 MG/MIN 33.33 mls/hr IV.CONT TITRATE PRN Rx#: [id number] D5W Inj 1,000 ML @ 50 mls/hr IV 1000 / 1000 .CONT .Q20H PABLO Rx#:[id number] Versed Inj 50 mg In 50 ml @ 2 50 / 50 MG/HR 2 mls/hr IV.CONT TITRATE PRN Rx#:[id number] Flexbumin 25% Inj 100 ML @ 60 100 / 100 100 / 100 mls/hr IV.SIG Q12H PABLO Rx#: [id number] Maxipime Inj 2,000 MG In NS Inj 100 / 100 100 / 100 100 ML @ 200 mls/hr IV.SIG Q8H PABLO Rx#:[id number] Intralipid 20% Inj 250 ML @ 31. 250 / 250 25 mls/hr IV.SIG Q24H PABLO Rx#: [id number] Merrem Inj 1,000 MG In NS Inj 100 / 100 100 / 100 100 ML @ 200 mls/hr IV.SIG Q12H PABLO Rx#:[id number] Mycamine Inj 150 MG In NS Inj 100 / 100 100 ML @ 100 mls/hr IV.SIG Q24H PABLO Rx#:[id number] Sodium Chloride 23.4% Inj 5.5 8.0187 / 8.0187 MEQ Sodium Acetate Inj 59 MEQ KCl Inj 40 MEQ Magnesium Chloride Inj 10 MEQ Calcium Chloride Inj 9 MEQ Sodium Phosphate Inj 40 MEQ MVI-12 Inj 10 ML Folvite Inj 1 MG In Clinimix 5%/D20W Inj 2,000 ML @ 42 mls/hr IV.SIG Q24H PABLO Rx#: [id number] Flagyl 500 MG Inj 100 ML @ 100 100 / 100 100 / 100 100 / 100 mls/hr IV.SIG Q8H PABLO Rx#: [id number] Intake (Blood Product) Amt 334 / 334 Plt Pheresis A Leukoreduced 334 / 334 Unit [id number] Output: Urine Amount (Catheter) 1650 / 1650 2475 / 2475 Indwelling Urethral Catheter 1649 2475 / 2475 Other: Date of Last Bowel Movement 07/01/18 07/01/18 07/01/18 # Bowel Movements 1 Physical Exam: CONSTITUTIONAL/GENERAL: ill appearing female, on mech vent minimally responsive TUBES/LINES/DRAINS: IJ central line, gutierrez catheter, soft restraints BUE SKIN: No jaundice, rashes, or lesions.+Ecchymoses on upper extremities. No wounds seen anteriorly.skin warm/dry EYES: Pupils 3mm, reactive to light , left slightly larger than right. opens eyes to pain. No scleral icterus. No injection or drainage. Fundi not examined. CARDIOVASCULAR: Tachycardic . Heart regular. No JVD. Peripheral pulses symmetric. RESPIRATORY/CHEST: Symmetric,un labored respirations on mech vent CPAP, slightly tachypneic. Clear to auscultation, decreased air movement. Breath sounds equal bilaterally. GASTROINTESTINAL: Abdomen soft, mild distention. + mild tenderness, becomes tense with palp. No palpable masses. Bowel sounds intermittent /infrequent GENITOURINARY: Without palpable bladder distension. Gutierrez catheter in place. clear yellow urine present. MUSCULOSKELETAL: peripheral pulses palpable. NEUROLOGICAL:minimal response to exam. eyes open to pain, no tracking. No following of commands. slight withdrawal BLE to pain. NO response upper. rigid w abdominal palp. PSYCHIATRIC: No obvious anxiety/depression- limited assess 2/2 to clinical condition. Diagnostic Tests Laboratory: Laboratory Results - last 72 hr 1006/29/18 06/29/18 12:23 14:15 19:17 WBC RBC Hgb Hct MCV MCH MCHC RDW Plt Count MPV Prelim Diff (Auto) WBC Differential Seg Neuts % (Manual) Band Neuts % (Manual) Lymphocytes % (Manual) Monocytes % (Manual) Metamyelocytes % (Man) Myelocytes % (Man) Promyelocytes % (Man) Blast Cells % (Manual) Plasma Cell % (Manual) Abs Neuts (Manual) Nucleated RBCs/100 WBC Differential Comment Toxic Vacuolation Dohle Bodies Platelet Estimate Platelet Morphology Spherocytes Ovalocytes Acanthocytes (Spur) Keratocytes Puncture Site Right radial Patient Temperature 98.6 O2 Saturation 96 ABG pH 7.29 L* ABG pCO2 46 H ABG pO2 154 H ABG HCO3 21 L ABG O2 Content 18.3 ABG Base Excess -4.1 L ABG Methemoglobin 1.9 Flako Test Present Hemoglobin 13.4 Carboxyhemoglobin 0.4 O2 Delivery Device Ventilator Vent Setting Prvc/ac Inspired O2 70 Critical Value Yes Sodium Potassium Chloride Carbon Dioxide Anion Gap BUN Creatinine Estimated GFR POC Glucose 195 H Random Glucose Lactic Acid Calcium Prot Corrected Calcium Phosphorus Magnesium Total Bilirubin AST ALT Alkaline Phosphatase Total Protein Albumin Bld Prod Order Comment 06/29/18 06/30/18 06/30/18 23:35 05:23 05:23 WBC 16.0 H RBC 4.11 Hgb 10.9 L Hct 31.5 L MCV 76.6 L MCH 26.6 L MCHC 34.7 RDW 19.3 H Plt Count 15 L* MPV 11.7 H Prelim Diff (Auto) Manual diff required WBC Differential Manual diff final Seg Neuts % (Manual) 62 Band Neuts % (Manual) 19 H Lymphocytes % (Manual) 3 L Monocytes % (Manual) 8 Metamyelocytes % (Man) 2 H Myelocytes % (Man) 4 H Promyelocytes % (Man) Blast Cells % (Manual) 1 H Plasma Cell % (Manual) 1 H Abs Neuts (Manual) 13.9 H Nucleated RBCs/100 WBC Differential Comment . Toxic Vacuolation Dohle Bodies Present H Platelet Estimate Rare L Platelet Morphology Normal Spherocytes Occ H Ovalocytes 1+ H Acanthocytes (Spur) 1+ H Keratocytes Occ H Puncture Site Patient Temperature O2 Saturation ABG pH ABG pCO2 ABG pO2 ABG HCO3 ABG O2 Content ABG Base Excess ABG Methemoglobin Flako Test Hemoglobin Carboxyhemoglobin O2 Delivery Device Vent Setting Inspired O2 Critical Value Sodium Potassium Chloride Carbon Dioxide Anion Gap BUN Creatinine Estimated GFR POC Glucose 253 H Random Glucose Lactic Acid Calcium Prot Corrected Calcium Phosphorus Magnesium 1.7 Total Bilirubin AST ALT Alkaline Phosphatase Total Protein Albumin Bld Prod Order Comment 06/30/18 06/30/18 06/30/18 05:43 08:00 08:00 WBC RBC Hgb Hct MCV MCH MCHC RDW Plt Count MPV Prelim Diff (Auto) WBC Differential Seg Neuts % (Manual) Band Neuts % (Manual) Lymphocytes % (Manual) Monocytes % (Manual) Metamyelocytes % (Man) Myelocytes % (Man) Promyelocytes % (Man) Blast Cells % (Manual) Plasma Cell % (Manual) Abs Neuts (Manual) Nucleated RBCs/100 WBC Differential Comment Toxic Vacuolation Dohle Bodies Platelet Estimate Platelet Morphology Spherocytes Ovalocytes Acanthocytes (Spur) Keratocytes Puncture Site Patient Temperature O2 Saturation ABG pH ABG pCO2 ABG pO2 ABG HCO3 ABG O2 Content ABG Base Excess ABG Methemoglobin Flako Test Hemoglobin Carboxyhemoglobin O2 Delivery Device Vent Setting Inspired O2 Critical Value Sodium 151 H Potassium 3.0 L D Chloride 119 H Carbon Dioxide 27.0 Anion Gap 5 BUN 67 H Creatinine 1.28 H Estimated GFR 41 L POC Glucose 209 H Random Glucose 205 H Lactic Acid 2.0 Calcium 7.0 L* Prot Corrected Calcium 8.1 L Phosphorus Magnesium 1.8 Total Bilirubin 1.1 H AST 43 H ALT 35 Alkaline Phosphatase 68 Total Protein 5.1 L Albumin 2.9 L Bld Prod Order Comment 06/30/18 06/30/18 06/30/18 08:00 10:07 13:40 WBC RBC Hgb Hct MCV MCH MCHC RDW Plt Count MPV Prelim Diff (Auto) WBC Differential Seg Neuts % (Manual) Band Neuts % (Manual) Lymphocytes % (Manual) Monocytes % (Manual) Metamyelocytes % (Man) Myelocytes % (Man) Promyelocytes % (Man) Blast Cells % (Manual) Plasma Cell % (Manual) Abs Neuts (Manual) Nucleated RBCs/100 WBC Differential Comment Toxic Vacuolation Dohle Bodies Platelet Estimate Platelet Morphology Spherocytes Ovalocytes Acanthocytes (Spur) Keratocytes Puncture Site Patient Temperature O2 Saturation ABG pH ABG pCO2 ABG pO2 ABG HCO3 ABG O2 Content ABG Base Excess ABG Methemoglobin Flako Test Hemoglobin Carboxyhemoglobin O2 Delivery Device Vent Setting Inspired O2 Critical Value Sodium Potassium Chloride Carbon Dioxide Anion Gap BUN Creatinine Estimated GFR POC Glucose 190 H Random Glucose Lactic Acid Calcium Prot Corrected Calcium Phosphorus 2.9 Magnesium Total Bilirubin AST ALT Alkaline Phosphatase Total Protein Albumin Bld Prod Order Comment 06/30/18 07/01/18 07/01/18 18:13 00:29 03:00 WBC RBC Hgb Hct MCV MCH MCHC RDW Plt Count MPV Prelim Diff (Auto) WBC Differential Seg Neuts % (Manual) Band Neuts % (Manual) Lymphocytes % (Manual) Monocytes % (Manual) Metamyelocytes % (Man) Myelocytes % (Man) Promyelocytes % (Man) Blast Cells % (Manual) Plasma Cell % (Manual) Abs Neuts (Manual) Nucleated RBCs/100 WBC Differential Comment Toxic Vacuolation Dohle Bodies Platelet Estimate Platelet Morphology Spherocytes Ovalocytes Acanthocytes (Spur) Keratocytes Puncture Site Patient Temperature O2 Saturation ABG pH ABG pCO2 ABG pO2 ABG HCO3 ABG O2 Content ABG Base Excess ABG Methemoglobin Flako Test Hemoglobin Carboxyhemoglobin O2 Delivery Device Vent Setting Inspired O2 Critical Value Sodium 154 H Potassium 3.9 D Chloride 113 H Carbon Dioxide 30.5 Anion Gap 11 BUN 65 H Creatinine 1.16 H Estimated GFR 46 L POC Glucose 230 H 181 H Random Glucose 225 H Lactic Acid Calcium 6.8 L* Prot Corrected Calcium 7.5 L Phosphorus 2.4 L Magnesium 1.6 Total Bilirubin 1.2 H AST 38 H ALT 44 Alkaline Phosphatase 92 Total Protein 5.8 L D Albumin 2.8 L Bld Prod Order Comment 07/01/18 07/01/18 07/01/18 03:00 06:12 08:31 WBC 15.3 H RBC 4.92 Hgb 13.0 D Hct 38.7 MCV 78.6 L MCH 26.4 L MCHC 33.5 RDW 19.4 H Plt Count 12 L* MPV 10.8 Prelim Diff (Auto) Manual diff required WBC Differential Manual diff final Seg Neuts % (Manual) 63 Band Neuts % (Manual) 23 H Lymphocytes % (Manual) 5 L Monocytes % (Manual) 7 Metamyelocytes % (Man) 1 Myelocytes % (Man) Promyelocytes % (Man) 1 H Blast Cells % (Manual) Plasma Cell % (Manual) Abs Neuts (Manual) 13.5 H Nucleated RBCs/100 WBC 3 H Differential Comment . Toxic Vacuolation Present H Dohle Bodies Platelet Estimate Rare L Platelet Morphology Normal Spherocytes Ovalocytes 1+ H Acanthocytes (Spur) Keratocytes Occ H Puncture Site Right radial Patient Temperature 98.6 O2 Saturation 97 ABG pH 7.56 H* ABG pCO2 32 L ABG pO2 185 H ABG HCO3 28 H ABG O2 Content 16.6 ABG Base Excess 5.6 H ABG Methemoglobin 1.8 Flako Test Present Hemoglobin 12.0 Carboxyhemoglobin 0.4 O2 Delivery Device Ventilator Vent Setting See comments Inspired O2 45 Critical Value Yes Sodium Potassium Chloride Carbon Dioxide Anion Gap BUN Creatinine Estimated GFR POC Glucose 216 H Random Glucose Lactic Acid Calcium Prot Corrected Calcium Phosphorus Magnesium Total Bilirubin AST ALT Alkaline Phosphatase Total Protein Albumin Bld Prod Order Comment 07/01/18 07/01/18 07/01/18 09:47 09:50 12:07 WBC RBC Hgb Hct MCV MCH MCHC RDW Plt Count MPV Prelim Diff (Auto) WBC Differential Seg Neuts % (Manual) Band Neuts % (Manual) Lymphocytes % (Manual) Monocytes % (Manual) Metamyelocytes % (Man) Myelocytes % (Man) Promyelocytes % (Man) Blast Cells % (Manual) Plasma Cell % (Manual) Abs Neuts (Manual) Nucleated RBCs/100 WBC Differential Comment Toxic Vacuolation Dohle Bodies Platelet Estimate Platelet Morphology Spherocytes Ovalocytes Acanthocytes (Spur) Keratocytes Puncture Site Patient Temperature O2 Saturation ABG pH ABG pCO2 ABG pO2 ABG HCO3 ABG O2 Content ABG Base Excess ABG Methemoglobin Flako Test Hemoglobin Carboxyhemoglobin O2 Delivery Device Vent Setting Inspired O2 Critical Value Sodium Potassium Chloride Carbon Dioxide Anion Gap BUN Creatinine Estimated GFR POC Glucose 170 H Random Glucose Lactic Acid Calcium Prot Corrected Calcium Phosphorus Magnesium Total Bilirubin AST ALT Alkaline Phosphatase Total Protein Albumin Bld Prod Order Comment Cancelled 07/01/18 07/01/18 07/01/18 16:35 21:00 21:28 WBC RBC Hgb Hct MCV MCH MCHC RDW Plt Count MPV Prelim Diff (Auto) WBC Differential Seg Neuts % (Manual) Band Neuts % (Manual) Lymphocytes % (Manual) Monocytes % (Manual) Metamyelocytes % (Man) Myelocytes % (Man) Promyelocytes % (Man) Blast Cells % (Manual) Plasma Cell % (Manual) Abs Neuts (Manual) Nucleated RBCs/100 WBC Differential Comment Toxic Vacuolation Dohle Bodies Platelet Estimate Platelet Morphology Spherocytes Ovalocytes Acanthocytes (Spur) Keratocytes Puncture Site Patient Temperature O2 Saturation ABG pH ABG pCO2 ABG pO2 ABG HCO3 ABG O2 Content ABG Base Excess ABG Methemoglobin Flako Test Hemoglobin Carboxyhemoglobin O2 Delivery Device Vent Setting Inspired O2 Critical Value Sodium Potassium Chloride Carbon Dioxide Anion Gap BUN Creatinine Estimated GFR POC Glucose 198 H 47 L* 286 H Random Glucose Lactic Acid Calcium Prot Corrected Calcium Phosphorus Magnesium Total Bilirubin AST ALT Alkaline Phosphatase Total Protein Albumin Bld Prod Order Comment 07/02/18 07/02/18 07/02/18 00:37 03:48 05:00 WBC 16.9 H RBC 3.90 L Hgb 10.3 L D Hct 31.4 L MCV 80.4 MCH 26.4 L MCHC 32.8 RDW 19.7 H Plt Count 38 L D MPV 9.8 Prelim Diff (Auto) Manual diff required WBC Differential Seg Neuts % (Manual) Band Neuts % (Manual) Lymphocytes % (Manual) Monocytes % (Manual) Metamyelocytes % (Man) Myelocytes % (Man) Promyelocytes % (Man) Blast Cells % (Manual) Plasma Cell % (Manual) Abs Neuts (Manual) Nucleated RBCs/100 WBC Differential Comment . Toxic Vacuolation Dohle Bodies Platelet Estimate Platelet Morphology Spherocytes Ovalocytes Acanthocytes (Spur) Keratocytes Puncture Site Patient Temperature O2 Saturation ABG pH ABG pCO2 ABG pO2 ABG HCO3 ABG O2 Content ABG Base Excess ABG Methemoglobin Flako Test Hemoglobin Carboxyhemoglobin O2 Delivery Device Vent Setting Inspired O2 Critical Value Sodium Potassium Chloride Carbon Dioxide Anion Gap BUN Creatinine Estimated GFR POC Glucose 182 H 180 H Random Glucose Lactic Acid Calcium Prot Corrected Calcium Phosphorus Magnesium Total Bilirubin AST ALT Alkaline Phosphatase Total Protein Albumin Bld Prod Order Comment 07/02/18 07/02/18 05:00 08:51 WBC RBC Hgb Hct MCV MCH MCHC RDW Plt Count MPV Prelim Diff (Auto) WBC Differential Seg Neuts % (Manual) Band Neuts % (Manual) Lymphocytes % (Manual) Monocytes % (Manual) Metamyelocytes % (Man) Myelocytes % (Man) Promyelocytes % (Man) Blast Cells % (Manual) Plasma Cell % (Manual) Abs Neuts (Manual) Nucleated RBCs/100 WBC Differential Comment Toxic Vacuolation Dohle Bodies Platelet Estimate Platelet Morphology Spherocytes Ovalocytes Acanthocytes (Spur) Keratocytes Puncture Site Patient Temperature O2 Saturation ABG pH ABG pCO2 ABG pO2 ABG HCO3 ABG O2 Content ABG Base Excess ABG Methemoglobin Flako Test Hemoglobin Carboxyhemoglobin O2 Delivery Device Vent Setting Inspired O2 Critical Value Sodium 149 H Potassium 2.9 L* D Chloride 106 Carbon Dioxide 31.2 Anion Gap 12 BUN 52 H Creatinine 0.99 Estimated GFR 55 L POC Glucose 122 H Random Glucose 140 H Lactic Acid Calcium 7.2 L* Prot Corrected Calcium 7.7 L Phosphorus 2.9 Magnesium 1.7 Total Bilirubin 1.1 H AST 25 ALT 22 Alkaline Phosphatase 79 Total Protein 6.2 L Albumin 3.6 D Bld Prod Order Comment Result Diagrams: 07/02/18 05:00 07/02/18 05:00 Microbiology: Microbiology 06/30/18 16:30 Gram Stain - Final Sputum - Endotracheal Sputum Culture - Final No growth in 48 hours 06/27/18 10:50 Aerobic Blood Culture - Final Blood - Peripheral No growth in 5 days Anaerobic Blood Culture - Final No growth in 5 days 06/27/18 10:45 Aerobic Blood Culture - Final Blood - Peripheral No growth in 5 days Anaerobic Blood Culture - Final No growth in 5 days 06/30/18 13:08 Stool Occult Blood (EPIFANIO) - Final Stool Hemoccult negative 06/25/18 12:10 Aerobic Blood Culture - Final Blood - Peripheral Anaerobic Blood Culture - Final QNS - See aerobic report. 06/27/18 16:55 Urine Culture - Final Clean Catch Urine No growth in 48 hours Imaging: Impressions Chest X-Ray 07/01/18 06:00 CONCLUSION: 1. Stable ETT and left IJ central line. 2. Improved bilateral perihilar upper lung zone airspace disease. 3. Persistent right lower lung zone airspace disease. Procedures: 06/26/18 - LIJ placement 06/29/18 - intubated Assessment and Plan - Disease Oriented Problem List (1) Rectal cancer Pertinent Non-Medical Issues: Psychosocial: Ms. Barraza is currently though her is living in a halfway with dementia. She is originally from [place] but has been living in [place] for greater than 5 years. She has 2 biological daughters and multiple stepchildren with her . She is described as a very energetic and caring woman. Spiritual:Jainism Legal: The patient is no longer able to participate in her own medical care. Her family has provided a documented living will that names her daughters Harper and Maile as surrogates Ethical issues impacting care: There are no known ethical issues impacting care at this time. Important Contacts: Maile Moss, daughter/HCP [phone] Harper Matt, daughter/HCP [phone] Prognosis: The patient currently has a poor prognosis. Though her cancer may be treatable she is currently too debilitated to undergo any type of aggressive chemotherapy or radiation therapy. She is at risk for further decline and decompensation due to sepsis, protein calorie malnutrition, atrial fibrillation, etc. She is at risk for further respiratory and cardiac decline, further debility, and . Code Status: Full Code Plan: * LEGAL DECISION MAKER: Patient currently intubated and unable to participate in decision-making. Living will names daughter Madison is primary HCS, other daughter Kristal is secondary. * GOALS: Family wishes to monitor patient in the coming days for improvement versus deterioration. Goals remain aggressive at this time, including full code. Family would like to give the patient until Saturday to monitor for signs of improvement, wish to meet again on Saturday to reevaluate continued aggressive treatment versus de-escalation and withdrawal. They had indicated they might wish to proceed with compassionate withdrawal of life support if patient does not experience significant improvement towards recovery. 07/02/18 = planned for f/up meeting today to review conditions, goals, awaiting family arrival, tentatively around 3pm 430pm= family wishes to cont aggressive tx a few more days and cont to monitor for improvement vs deterioration. They wish to meet again Saturday to review condition, goals. * CODE STATUS: Full code * SYMPTOMS: Debility - the family and patient state she has had a rapid decline physical ability during this hospital admission. This is multifactorial given her protein calorie malnourishment and sepsis. Has recently been started on TPN. Cdiff colitis. If goals remain aggressive, needs to be started on tube feeding once gut functioning. Dyspnea - currently mechanically ventilated, is slightly tachypneic. Follow current recommendations from critical care, Versed gtt was being titrated for comfort; today held for CPAP Painpreviously used Percocet without good relief has been switched to Dilaudid since being in the ICU. In light of hypotension due to sepsis has not received. Is currently using barrier cream and Silvadene for topical pain relief after bowel movements. Now on mech vent, light sedation (held for CPAP) . Some grimacing/tachypnea noted, ?pain, May need to revisit opioid use for pain if patient able to maintain BP * Palliative care will continue to follow during hospital course as condition evolves, to assist patient/decision maker with understanding of medical conditions, weighing benefits/burdens of treatment options, for clarification of goals of treatment. Additionally will assist with any symptoms of palliative concern. Attestation Attestation: To help prompt me to consider important information that might be impacting today's encounter and assessment, information from prior notes written by myself or my colleagues may have been "brought forward" into today's note. My signature on this note, however, is an attestation that I personally performed the exam, history, and/or decision-making noted today, and, unless otherwise indicated, the interactions with patient, family, and staff as well as the review of records all occurred today. I also attest that the listed assessment and stated plan reflect my best clinical judgment today based on the combination of historical information, prior notes, and today's exam/ interactions. When time spent is documented, it refers only to time spent today by the signer, or if indicated, combined time spent today by collaborating physician/nurse practitioner.
[2018-07-02 13:13] LABS: Eosinophils 1 % (0-4); Lymphocytes 3 % (9-44); Metamyelocytes 5 % (0-1); Monocytes 2 % (0-8); Myelocytes 5 % (0-0); Promyelocyte 2 % (0-0); Tallied Nucleated RBC 2 (0-0)
[2018-07-02 13:14] LABS: Ovalocytes 1+
--- NOTE | 2018-07-02 15:18 | P.PNONC ---
Subjective Interval history: Afebrile. Continues on ventilator, off sedation. Patient opens her eyes to voice. Moves extremities intermittently, however not to command. Right index finger purplish hue and cold to touch, radial pulse palpable. All remaining fingertips and toes pink and warm. Prior to intubation patient reported a history of raynauds. Objective Vital Signs/Intake & Output: Vital Signs 07/01/18 15:12 07/01/18 15:15 07/01/18 15:30 Temperature 98.2 F Pulse Rate 105 H 104 H 106 H Respiratory Rate 28 H 29 H 26 H Blood Pressure 117/66 122/74 119/74 Pulse Oximetry 99 99 07/01/18 15:45 07/01/18 16:00 07/01/18 16:15 Temperature 98.7 F Pulse Rate 105 H 102 H 102 H Respiratory Rate 27 H 25 H 28 H Blood Pressure 122/73 115/66 107/67 Pulse Oximetry 99 98 99 07/01/18 16:30 07/01/18 16:45 07/01/18 17:00 Temperature Pulse Rate 106 H 105 H 104 H Respiratory Rate 29 H 28 H 33 H Blood Pressure 129/73 124/70 122/68 Pulse Oximetry 98 98 98 07/01/18 17:15 07/01/18 17:30 07/01/18 17:45 Temperature Pulse Rate 104 H 100 H 103 H Respiratory Rate 36 H 40 H 45 H Blood Pressure 129/72 108/57 L 123/68 Pulse Oximetry 98 98 98 07/01/18 18:00 07/01/18 19:00 07/01/18 20:00 Temperature 99.4 F Pulse Rate 103 H 103 H 97 H Respiratory Rate 28 H 28 H 25 H Blood Pressure 130/71 127/73 116/65 Pulse Oximetry 98 98 98 07/01/18 20:43 07/01/18 21:00 07/01/18 22:00 Temperature Pulse Rate 101 H 100 H 94 H Respiratory Rate 21 25 H 25 H Blood Pressure 123/74 109/63 Pulse Oximetry 98 98 98 07/01/18 23:00 07/01/18 23:42 07/02/18 00:00 Temperature Pulse Rate 97 H 96 H 97 H Respiratory Rate 24 22 23 Blood Pressure 121/72 124/70 Pulse Oximetry 98 98 98 07/02/18 01:00 07/02/18 02:00 07/02/18 03:00 Temperature Pulse Rate 98 H 95 H 94 H Respiratory Rate 25 H 24 24 Blood Pressure 124/70 127/73 127/73 Pulse Oximetry 98 97 98 07/02/18 04:00 07/02/18 04:24 07/02/18 05:00 Temperature Pulse Rate 93 H 87 92 H Respiratory Rate 23 21 22 Blood Pressure 122/69 Pulse Oximetry 97 97 97 07/02/18 06:00 07/02/18 07:00 07/02/18 07:54 Temperature Pulse Rate 89 95 H 88 Respiratory Rate 19 12 20 Blood Pressure 124/68 136/70 Pulse Oximetry 97 97 07/02/18 07:55 07/02/18 08:00 07/02/18 08:26 Temperature Pulse Rate 92 H Respiratory Rate 12 21 Blood Pressure 123/70 Pulse Oximetry 98 97 97 07/02/18 09:00 07/02/18 10:00 07/02/18 11:00 Temperature Pulse Rate 92 H 90 92 H Respiratory Rate 24 23 26 H Blood Pressure 131/75 118/69 126/74 Pulse Oximetry 97 97 97 07/02/18 11:16 07/02/18 11:17 07/02/18 15:07 Temperature Pulse Rate 92 H 97 H Respiratory Rate 24 22 Blood Pressure Pulse Oximetry 97 Intake & Output 07/01/18 07/02/18 07/02/18 18:59 06:59 18:59 Intake Total 934 / 934 4068.0187 / 4068.0187 300 / 300 Output Total 1650 / 1650 2475 / 2475 Balance -716 / -716 1593.0187 / 1593.0187 300 / 300 Weight 57 kg Intake: IV 600 / 600 4068.0187 / 4068.0187 300 / 300 Cordarone Inj 450 MG In D5W Inj 250 / 250 250 / 250 100 / 100 241 ML @ 1 MG/MIN 33.33 mls/hr IV.CONT TITRATE PRN Rx#: [id number] D5W Inj 1,000 ML @ 50 mls/hr IV 1000 / 1000 .CONT .Q20H FERN Rx#:[id number] Versed Inj 50 mg In 50 ml @ 2 50 / 50 MG/HR 2 mls/hr IV.CONT TITRATE PRN Rx#:[id number] Flexbumin 25% Inj 100 ML @ 60 100 / 100 100 / 100 mls/hr IV.SIG Q12H FERN Rx#: [id number] Maxipime Inj 2,000 MG In NS Inj 100 / 100 100 / 100 100 ML @ 200 mls/hr IV.SIG Q8H FERN Rx#:[id number] Intralipid 20% Inj 250 ML @ 31. 250 / 250 25 mls/hr IV.SIG Q24H FERN Rx#: [id number] Merrem Inj 1,000 MG In NS Inj 100 / 100 100 / 100 100 ML @ 200 mls/hr IV.SIG Q12H FERN Rx#:[id number] Mycamine Inj 150 MG In NS Inj 100 / 100 100 ML @ 100 mls/hr IV.SIG Q24H FERN Rx#:[id number] Sodium Chloride 23.4% Inj 5.5 2068.0187 / 2068.0187 MEQ Sodium Acetate Inj 59 MEQ KCl Inj 40 MEQ Magnesium Chloride Inj 10 MEQ Calcium Chloride Inj 9 MEQ Sodium Phosphate Inj 40 MEQ MVI-12 Inj 10 ML Folvite Inj 1 MG In Clinimix 5%/D20W Inj 2,000 ML @ 42 mls/hr IV.SIG Q24H FERN Rx#: [id number] Flagyl 500 MG Inj 100 ML @ 100 100 / 100 100 / 100 100 / 100 mls/hr IV.SIG Q8H FERN Rx#: [id number] Intake (Blood Product) Amt 334 / 334 Plt Pheresis A Leukoreduced 334 / 334 Unit [id number] Output: Urine Amount (Catheter) 1650 / 1650 2475 / 2475 Indwelling Urethral Catheter 1650 / 1650 2475 / 2475 Other: Date of Last Bowel Movement 07/01/18 07/01/18 07/01/18 # Bowel Movements 1 Result Diagrams: 07/02/18 05:00 07/02/18 18:00 Laboratory Results: Laboratory Results - last 24 hr 07/01/18 07/01/18 07/01/18 09:47 16:35 21:00 WBC RBC Hgb Hct MCV MCH MCHC RDW Plt Count MPV Prelim Diff (Auto) WBC Differential Seg Neuts % (Manual) Band Neuts % (Manual) Lymphocytes % (Manual) Monocytes % (Manual) Eosinophils % (Manual) Metamyelocytes % (Man) Myelocytes % (Man) Promyelocytes % (Man) Abs Neuts (Manual) Nucleated RBCs/100 WBC Differential Comment Platelet Estimate Platelet Morphology Ovalocytes Sodium Potassium Chloride Carbon Dioxide Anion Gap BUN Creatinine Estimated GFR POC Glucose 198 H 47 L* Random Glucose Calcium Prot Corrected Calcium Phosphorus Magnesium Total Bilirubin AST ALT Alkaline Phosphatase Total Protein Albumin Bld Prod Order Comment 07/01/18 07/02/18 07/02/18 21:28 00:37 03:48 WBC RBC Hgb Hct MCV MCH MCHC RDW Plt Count MPV Prelim Diff (Auto) WBC Differential Seg Neuts % (Manual) Band Neuts % (Manual) Lymphocytes % (Manual) Monocytes % (Manual) Eosinophils % (Manual) Metamyelocytes % (Man) Myelocytes % (Man) Promyelocytes % (Man) Abs Neuts (Manual) Nucleated RBCs/100 WBC Differential Comment Platelet Estimate Platelet Morphology Ovalocytes Sodium Potassium Chloride Carbon Dioxide Anion Gap BUN Creatinine Estimated GFR POC Glucose 286 H 182 H 180 H Random Glucose Calcium Prot Corrected Calcium Phosphorus Magnesium Total Bilirubin AST ALT Alkaline Phosphatase Total Protein Albumin Bld Prod Order Comment 07/02/18 07/02/18 07/02/18 05:00 05:00 08:51 WBC 16.9 H RBC 3.90 L Hgb 10.3 L D Hct 31.4 L MCV 80.4 MCH 26.4 L MCHC 32.8 RDW 19.7 H Plt Count 38 L D MPV 9.8 Prelim Diff (Auto) Manual diff required WBC Differential Manual diff final Seg Neuts % (Manual) 64 Band Neuts % (Manual) 18 H Lymphocytes % (Manual) 3 L Monocytes % (Manual) 2 Eosinophils % (Manual) 1 Metamyelocytes % (Man) 5 H Myelocytes % (Man) 5 H Promyelocytes % (Man) 2 H Abs Neuts (Manual) 15.9 H Nucleated RBCs/100 WBC 2 H Differential Comment . Platelet Estimate Low L Platelet Morphology Enlarged H Ovalocytes 1+ H Sodium 149 H Potassium 2.9 L* D Chloride 106 Carbon Dioxide 31.2 Anion Gap 12 BUN 52 H Creatinine 0.99 Estimated GFR 55 L POC Glucose 122 H Random Glucose 140 H Calcium 7.2 L* Prot Corrected Calcium 7.7 L Phosphorus 2.9 Magnesium 1.7 Total Bilirubin 1.1 H AST 25 ALT 22 Alkaline Phosphatase 79 Total Protein 6.2 L Albumin 3.6 D Bld Prod Order Comment 07/02/18 12:16 WBC RBC Hgb Hct MCV MCH MCHC RDW Plt Count MPV Prelim Diff (Auto) WBC Differential Seg Neuts % (Manual) Band Neuts % (Manual) Lymphocytes % (Manual) Monocytes % (Manual) Eosinophils % (Manual) Metamyelocytes % (Man) Myelocytes % (Man) Promyelocytes % (Man) Abs Neuts (Manual) Nucleated RBCs/100 WBC Differential Comment Platelet Estimate Platelet Morphology Ovalocytes Sodium Potassium Chloride Carbon Dioxide Anion Gap BUN Creatinine Estimated GFR POC Glucose 145 H Random Glucose Calcium Prot Corrected Calcium Phosphorus Magnesium Total Bilirubin AST ALT Alkaline Phosphatase Total Protein Albumin Bld Prod Order Comment Culture Results: Microbiology 06/30/18 16:30 Gram Stain - Final Sputum - Endotracheal Sputum Culture - Final No growth in 48 hours 06/27/18 10:50 Aerobic Blood Culture - Final Blood - Peripheral No growth in 5 days Anaerobic Blood Culture - Final No growth in 5 days 06/27/18 10:45 Aerobic Blood Culture - Final Blood - Peripheral No growth in 5 days Anaerobic Blood Culture - Final No growth in 5 days 06/30/18 13:08 Stool Occult Blood (EPIFANIO) - Final Stool Hemoccult negative 06/25/18 12:10 Aerobic Blood Culture - Final Blood - Peripheral Anaerobic Blood Culture - Final QNS - See aerobic report. Medications: Active Medications Generic Name Dose Route Start Last Admin Trade Name Freq PRN Reason Stop Dose Admin Albuterol 1 ampul 06/27/18 12:00 07/02/18 15:05 Duoneb Neb (Fern) NEB 1 ampul Q4HR NEB FERN Administration Chlorhexidine Gluconate 15 ml 06/29/18 20:00 07/02/18 08:48 Peridex 0.12% Oral Kit OROPHARYNG 15 ml BID@0800,2000 FERN Administration Dextrose 50 ml 07/01/18 08:03 07/01/18 21:10 D50w Vial IV.PUSH 50 ml UNSCH PRN Administration PER HYPOGLYCEMIA PROTOCOL Furosemide 20 mg 06/28/18 18:00 07/02/18 08:48 Lasix Inj IV.PUSH 20 mg BID@0900,1800 FERN Administration Hydromorphone HCl 0.5 mg 06/26/18 14:00 06/29/18 06:30 Dilaudid Pf Inj IV.PUSH 0.5 mg Q3H PRN Administration PAIN 3-10 Fat Emulsion Intravenous 250 mls @ 31.25 mls/hr 06/27/18 20:00 07/02/18 06:27 Intralipid 20% Inj IV.SIG Infused Q24H FERN Infusion Potassium Chloride 40 meq in 100 mls @ 25 mls/hr 06/28/18 13:34 06/30/18 21: 46 Kcl 40 Meq Premix Inj IV.SIG Infused Q2H PRN Infusion For Potassium 2.8 - 3.2 mEq/L Potassium Phosphate 30 mmol/ 260 mls @ 42 mls/hr 06/28/18 13:34 06/29/18 03: 13 Sodium Chloride IV.SIG Infused UNSCH PRN Infusion SEE LABEL COMMENTS Albumin Human 100 mls @ 60 mls/hr 06/28/18 16:00 07/02/18 05:45 Flexbumin 25% Inj IV.SIG Infused Q12H FERN Infusion Metronidazole/Sodium Chloride 100 mls @ 100 mls/hr 06/28/18 17:00 07/02/18 11 :34 Flagyl 500 Mg Inj IV.SIG Infused Q8H FERN Infusion Midazolam HCl 50 mg in 50 mls @ 2 mls/hr 06/29/18 12:23 07/02/18 08:47 Versed Inj IV.CONT 0 mg/hr TITRATE PRN 0 mls/hr Per Protocol Titration Protocol 2 MG/HR Sodium Chloride 5.5 meq/ 2,068.0187 mls @ 42 mls/hr 06/30/18 20:00 07/01/18 21:10 Sodium Acetate 59 meq/ IV.SIG 42 mls/hr Potassium Chloride 40 meq/ Q24H FERN Administration Magnesium Chloride 10 meq/ Calcium Chloride 9 meq/ Sodium Phosphate 40 meq/ Multivitamins 10 ml/ Folic Acid 1 mg/ Amino Acids Dextrose 1,000 mls @ 50 mls/hr 07/01/18 08:00 07/02/18 06:26 D5w Inj IV.CONT 50 mls/hr .Q20H FERN Administration Insulin Human Regular 0 units 07/01/18 12:00 07/02/18 08:56 Novolin R Correctional Sugar Inj SQ Not Given Q4HR [facility] Protocol Levothyroxine Sodium 50 mcg 06/26/18 06:00 07/02/18 08:47 Synthroid PO Not Given DAILY@0600 [facility] Miscellaneous Medication 1 each 06/29/18 16:00 07/02/18 03:51 OROPHARYNG 1 each 0000,0400,1200,1600 FERN Administration Ondansetron HCl 4 mg 06/26/18 04:31 06/27/18 14:12 Zofran Inj IV.PUSH 4 mg Q6H PRN Administration NAUSEA OR VOMITING Pantoprazole Sodium 40 mg 06/25/18 16:00 07/02/18 08:48 Protonix Inj IV.PUSH 40 mg Q12HR FERN Administration Sodium Chloride 2 ml 06/27/18 21:00 07/02/18 08:49 Ns Flush IV.FLUSH 2 ml BID FERN Administration Sodium Chloride 2 ml 06/27/18 10:30 06/28/18 06:02 Ns Flush IV.FLUSH 2 ml PRN PRN Administration FLUSH AFTER USING IV ACCESS Vancomycin HCl 500 mg 06/28/18 16:16 07/02/18 08:49 Vancomycin Po PO Not Given QID FERN Objective Remarks: GENERAL: Critically ill appearing female patient. Ventilated. Opened eyes to voice, not following commands. SKIN: Pale, warm and dry. HEAD: Normocephalic. EYES: No scleral icterus. No injection or drainage. NECK: Supple, trachea midline. CARDIOVASCULAR: +S1/S2. RESPIRATORY: Breath sounds equal bilaterally. FiO2 40%. GASTROINTESTINAL: Abdomen soft, non-tender, nondistended. EXTREMITIES: Right index finger tip cool to touch and purple. Radial pulse palpable. Remaining fingertips and toes pink and warm. Trace edema. NEUROLOGICAL: Intubated. Opens eyes to voice. Not following commands. Intermittently moves extremities. Assessment/Plan - Plan Ms. 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 She had received 5 days of chemotherapy, completed on 06/13/2018. She is currently receiving radiation therapy which started on she was admitted for acute renal failure related to dehydration, intractable diarrhea from radiation chemotherapy. Plan: 1. Condition remains guarded. Remains intubated. 2. Continue antibiotics per infectious disease. 3. Nonocclusive thrombus from previous PICC line. 4. Thrombocytopenia, platelets today 38,000. Status post 1 unit platelets the last 2 days. 5. History of Raynauds syndrome, right index finger cool with purple hue. Radial pulse palpable. Continue to monitor. Keep extremities warm. 6. Palliative care is following. 7. Repeat CBC in the a.m. - Attending Statement The exam, history, and the medical decision-making described in the above note were completed with the assistance of the mid-level provider. I reviewed and agree with the findings presented. I attest that I had a [id number] encounter with the patient on the same day, and personally performed and documented my assessment and findings in the medical record. Off sedation, Opens eyes on command Tolerated CPAP Trial for six hours. KUB= Ileus has resolved. No more diarrhea Convert TPN to tube feeds tomorrow Patient is showing some improvement Discussed with robot designer Dr Flores, RN and pt daughter. Continue aggressive support till Saturday.Daughter agree
--- NOTE | 2018-07-02 16:29 | XR ---
EXAM DATE: 07/02/2018 12:00 AM EDT AGE/SEX: 72 years / Female INDICATIONS: Ileus CLINICAL DATA: This is the patient's initial encounter. Patient reports that signs and symptoms have been present for 4 - 6 days and indicates a pain score of Nonresponsive. MEDICAL/SURGICAL HISTORY: Diverticulitis. GERD, Anemia, cervical cancer, Appendectomy. Hyster ectomy. breast biopsy lumpectomy, sigmoid polypectomy COMPARISON: [facility] [place], CT ABDOMEN & PELVIS W/O CONTRAST, 06/28/2018. . FINDINGS: The abdominal bowel gas pattern is normal. No abnormal masses, or organomegaly is seen. 2 calcifica tions associated with the lower pole of the left kidney are unchanged. Venous calcifications overlie the pelvis. The osseous structures are unremarkable. CONCLUSION: No dilated bowel loops to suggest ileus. Electronically signed by: William Reynolds MD 07/02/2018 4:27 PM EDT
[2018-07-02] MEDS: SODIUM ACETATE IV.SIG SCH ×9 (20:51)
[2018-07-02] MEDS: SODIUM CHLORIDE IV.SIG SCH ×9 (20:51)
[2018-07-02] MEDS: [UNRECOGNIZED DRUG - OTHER] IV.SIG SCH ×9 (20:51)
[2018-07-03] MEDS: Insulin NovoLIN Regular Correctional Sugar Inj SQ SCH ×6 (00:47→20:03)
[2018-07-03] MEDS: Oral Hygiene Kit OROPHARYNG SCH ×4 (00:47→16:26)
[2018-07-03] MEDS: Dextrose 5% in Water Inj 1,000 ML IV.CONT SCH ×2 (02:07→20:03)
[2018-07-03] MEDS: Levothyroxine 50 MCG Tablet PO SCH (05:02)
[2018-07-03] MEDS: Albumin Human 25% Inj 100 ML IV.SIG SCH ×2 (05:02→16:34)
[2018-07-03 05:32] LABS: Hematocrit 34.9 % (35.0-46.0); Hemoglobin 11.5 gm/dL (11.6-15.3); Mean Corpuscular HGB Conc 32.8 % (32.0-36.0); Mean Corpuscular Hemoglobin 26.2 pg (27.0-34.0); Mean Corpuscular Volume 79.8 fL (80.0-100.0); Mean Platelet Volume 11.4 fL (7.0-11.0); Platelet Count 82 th/mm3 (150-450); Red Blood Count 4.38 mil/mm3 (4.00-5.30); White Blood Count 17.5 th/mm3 (4.0-11.0)
[2018-07-03 05:44] LABS: Alanine Aminotransferase 21 U/L (10-53); Albumin 3.2 g/dL (3.4-5.0); Anion Gap 9 meq/L (5-15); Aspartate Aminotransferase 29 U/L (15-37); Blood Urea Nitrogen 47 mg/dL (7-18); Calcium 7.6 mg/dL (8.5-10.1); Carbon Dioxide 32.1 meq/L (21.0-32.0); Chloride 104 meq/L (98-107); Glomerular Filtration Rate 64 mL/min (>89); Glucose,Random 143 mg/dL (74-106); Magnesium 1.7 mg/dL (1.5-2.5); Phosphorus 2.6 mg/dL (2.5-4.9); Potassium 3.6 meq/L (3.5-5.1); Sodium 145 meq/L (136-145)
[2018-07-03 05:46] LABS: Alkaline Phosphatase 93 U/L (45-117); Total Protein 6.4 g/dL (6.4-8.2)
[2018-07-03 07:56] LABS: Lymphocytes 1 % (9-44); Metamyelocytes 3 % (0-1); Monocytes 3 % (0-8); Myelocytes 1 % (0-0); Promyelocyte 1 % (0-0)
[2018-07-03 07:57] LABS: Ovalocytes 1+
--- NOTE | 2018-07-03 08:05 | P.PNCC ---
Subjective Subjective Remarks/Hospital Course: 72-year-old female with past medical history of anorectal squamous cell carcinoma, mixed connective tissue disease (SLE, Reynaud's, Polymyositis), remote cervical cancer status post hysterectomy, hypothyroid . She originally developed anal pain and bleeding in January of 2018. She was referred to Dr. Coelho who performed biopsy of anal mass on 04/25/18 which demonstrated invasive squamous cell carcinoma. Outpatient PET reportedly showed no local or distant metastatic disease. She has been undergoing radiation therapy under the care of Dr Concepcion. Concurrent chemotherapy is planned for week 1 and 5 of radiation; and she completed first chemo cycle 06/13/18. She has reportedly been having loose watery stools for several days, difficult to determine exact time of onset. She has also had abdominal pain. When she presented for radiation treatment on 06/25, she was weak and hypotensive so she was sent to the ED. She was pancytopenic with ANC 768. CT abd/pelvis showed fluid filled small bowel c/ w partial SBO or ileus. She was admitted to hospitalist service. Blood cultures were obtained 09/25 which have now resulted + pseudomonas in 09/26 bottles. She was started on cefepime 2 gram IV and vancomycin per hematology. Tmax was 101.2 Town Marshal consult has been requested. She has a RUE PICC placed 06/09 which does not have overt clinical signs of infection, but will be removed. 06/27 Patient is lethargic on Amio drip ( HR now controlled) Afebrile. 06/28 patient lying on bed very lethargic remains on amiodarone infusion. Appears very critical. WBC count is improved to 7.8, platelet count of 35. BUN /creatinine further elevated at 66/1.36. Patient not to be weaker on the right upper and lower extremity-I do not see any history of CVA. Will check CT of the head stat. Patient is not a candidate for TPA due to severe thrombocytopenia, so will not initiate stroke alert. Breathing slightly labored 06/29: Clinically deteriorating very lethargic tachypneic. ABG shows significant hypoxia. Chest x-ray shows worsening bilateral infiltrates/edema. I had discussed with daughters yesterday they wanted to continue full code, patient is encephalopathy again unable to make any decisions at this time. Give additional 20 mg of IV Lasix and continue scheduled 20 mg twice daily. If not improving in the next 45-60 minutes will need endotracheal intubation 06/30: Severely septic lady who is intubated for severe respiratory failure on . Likely has acute lung injury from severe sepsis. FiO2 remains high at 65% to maintain sat above 90%. Chest x-ray is pending at this time WBC count 16 , sodium is 150, BUN 67 creatinine 1.3. Urine output adequate with Lasix 07/01 Patient remains intubated and sedated with Versed drip 3mg/hr, on Amio drip and TPN. s/p 1u PLT pheresis yesterday PLT count 12 this morning. 07/02 Patient is sedated with Versed and intubated. Afebrile, on Amio drip.s/p 1u PLT transfusion yesterday 07/03 No events overnight. Off sedation. Tolerated CPAP x 6 hrs yesterday. Afebrile. Objective Vital Signs / I&O: Vital Signs 07/02/18 08:00 07/02/18 08:26 07/02/18 09:00 Temperature Pulse Rate 92 H 92 H Respiratory Rate 21 24 Blood Pressure 123/70 131/75 Pulse Oximetry 97 97 97 07/02/18 10:00 07/02/18 11:00 07/02/18 11:16 Temperature Pulse Rate 90 92 H 92 H Respiratory Rate 23 26 H 24 Blood Pressure 118/69 126/74 Pulse Oximetry 97 97 07/02/18 11:17 07/02/18 12:00 07/02/18 13:00 Temperature Pulse Rate 87 91 H Respiratory Rate 24 26 H Blood Pressure 121/72 126/71 Pulse Oximetry 97 97 07/02/18 14:00 07/02/18 15:00 07/02/18 15:07 Temperature Pulse Rate 95 H 94 H 97 H Respiratory Rate 26 H 24 23 Blood Pressure 126/72 126/74 Pulse Oximetry 96 07/02/18 16:00 07/02/18 17:00 07/02/18 18:00 Temperature Pulse Rate 94 H 97 H 97 H Respiratory Rate 23 24 25 H Blood Pressure 125/73 135/78 135/79 Pulse Oximetry 07/02/18 19:00 07/02/18 20:00 07/02/18 20:25 Temperature 98.9 F Pulse Rate 97 H 91 H Respiratory Rate 24 22 25 H Blood Pressure 128/73 121/65 Pulse Oximetry 100 100 99 07/02/18 20:27 07/02/18 21:00 07/02/18 22:00 Temperature Pulse Rate 97 H 101 H 100 H Respiratory Rate 25 H 22 24 Blood Pressure 134/76 141/80 H Pulse Oximetry 99 97 07/02/18 23:00 07/03/18 00:00 07/03/18 00:37 Temperature 98.7 F Pulse Rate 99 H 92 H 104 H Respiratory Rate 21 20 22 Blood Pressure 128/77 120/71 Pulse Oximetry 99 99 98 07/03/18 01:00 07/03/18 02:00 07/03/18 03:00 Temperature Pulse Rate 94 H 94 H 102 H Respiratory Rate 15 22 24 Blood Pressure 123/75 122/71 134/75 Pulse Oximetry 99 99 98 07/03/18 03:48 07/03/18 04:00 07/03/18 05:00 Temperature Pulse Rate 104 H 98 H 106 H Respiratory Rate 25 H 14 24 Blood Pressure 122/75 131/80 Pulse Oximetry 98 99 99 07/03/18 06:00 Temperature Pulse Rate 96 H Respiratory Rate 22 Blood Pressure 126/70 Pulse Oximetry 99 Intake & Output 07/02/18 07/03/18 07/03/18 18:59 06:59 18:59 Intake Total 700 / 700 3618.0187 / 3618.0187 Output Total 2200 / 2200 1850 / 1850 Balance -1500 / -1500 1768.0187 / 1768.0187 Weight 57 kg Intake: IV 700 / 700 3618.0187 / 3618.0187 Cordarone Inj 450 MG In D5W Inj 100 / 100 241 ML @ 1 MG/MIN 33.33 mls/hr IV.CONT TITRATE PRN Rx#: [id number] D5W Inj 1,000 ML @ 50 mls/hr IV 1000 / 1000 .CONT .Q20H PABLO Rx#:[id number] Flexbumin 25% Inj 100 ML @ 60 100 / 100 100 / 100 mls/hr IV.SIG Q12H PABLO Rx#: [id number] Maxipime Inj 2,000 MG In NS Inj 100 / 100 100 / 100 100 ML @ 200 mls/hr IV.SIG Q12H PABLO Rx#:[id number] Intralipid 20% Inj 250 ML @ 31. 250 / 250 25 mls/hr IV.SIG Q24H PABLO Rx#: [id number] KCl 40 mEq Premix Inj 40 meq In 200 / 200 100 ml @ 25 mls/hr IV.SIG Q2H PRN Rx#:[id number] Sodium Chloride 23.4% Inj 5.5 2068.0187 / 2068.0187 MEQ Sodium Acetate Inj 59 MEQ KCl Inj 40 MEQ Magnesium Chloride Inj 10 MEQ Calcium Chloride Inj 9 MEQ Sodium Phosphate Inj 40 MEQ MVI-12 Inj 10 ML Folvite Inj 1 MG In Clinimix 5%/D20W Inj 2,000 ML @ 42 mls/hr IV.SIG Q24H PABLO Rx#: [id number] Flagyl 500 MG Inj 100 ML @ 100 200 / 200 100 / 100 mls/hr IV.SIG Q8H PABLO Rx#: [id number] Output: Urine Amount (Catheter) 2200 / 2200 1850 / 1850 Indwelling Urethral Catheter 2200 / 2200 1850 / 1850 Other: Date of Last Bowel Movement 07/01/18 07/01/18 Result Diagrams: 07/03/18 05:00 07/03/18 05:00 Other Results: Laboratory Results - last 12 hr 07/02/18 07/03/18 07/03/18 20:48 00:46 04:59 WBC RBC Hgb Hct MCV MCH MCHC RDW Plt Count MPV Prelim Diff (Auto) WBC Differential Seg Neuts % (Manual) Band Neuts % (Manual) Lymphocytes % (Manual) Monocytes % (Manual) Metamyelocytes % (Man) Myelocytes % (Man) Promyelocytes % (Man) Abs Neuts (Manual) Differential Comment Platelet Estimate Platelet Morphology Ovalocytes Sodium Potassium Chloride Carbon Dioxide Anion Gap BUN Creatinine Estimated GFR POC Glucose 143 H 142 H 136 H Random Glucose Calcium Phosphorus Magnesium Total Bilirubin AST ALT Alkaline Phosphatase Total Protein Albumin 07/03/18 07/03/18 05:00 05:00 WBC 17.5 H RBC 4.38 Hgb 11.5 L Hct 34.9 L MCV 79.8 L MCH 26.2 L MCHC 32.8 RDW 20.0 H Plt Count 82 L D MPV 11.4 H Prelim Diff (Auto) Manual diff required WBC Differential Manual diff final Seg Neuts % (Manual) 87 H Band Neuts % (Manual) 4 Lymphocytes % (Manual) 1 L Monocytes % (Manual) 3 Metamyelocytes % (Man) 3 H Myelocytes % (Man) 1 H Promyelocytes % (Man) 1 H Abs Neuts (Manual) 16.8 H Differential Comment . Platelet Estimate Low L Platelet Morphology Enlarged H Ovalocytes 1+ H Sodium 145 Potassium 3.6 Chloride 104 Carbon Dioxide 32.1 H Anion Gap 9 BUN 47 H Creatinine 0.87 Estimated GFR 64 L POC Glucose Random Glucose 143 H Calcium 7.6 L Phosphorus 2.6 Magnesium 1.7 Total Bilirubin 1.0 AST 29 ALT 21 Alkaline Phosphatase 93 Total Protein 6.4 Albumin 3.2 L Imaging: Abdomen/Pelvis CT 06/28/18 00:00 CONCLUSION: 1. Colonic diverticula. 2. Persistent 4.6 cm left adnexal cystic mass. 3. Distended gallbladder. 4. Cortical calcic location seen at the left kidney with some cortical thinning. There are multiple left-sided renal masses likely related to cysts although they're nonspecific on this noncontrast CT examination. Chest CT 06/28/18 00:00 CONCLUSION: 1. Development of moderate bilateral pleural effusions being worse in the right. 2. Areas of consolidation or atelectasis at the posterior lower lungs. Given the effusions is likely represent areas of atelectasis. 3. Consolidation and bronchiectasis in the right upper lung. This was present on the prior exam. It appears to progress. 4. Distended esophagus throughout the chest. Head CT 06/28/18 00:00 CONCLUSION: Negative noncontrast head CT. . Venous Doppler Study 06/29/18 00:00 CONCLUSION: Mild nonocclusive thrombus in the right axillary vein to the brachial vein. Chest X-Ray 07/01/18 06:00 CONCLUSION: 1. Stable ETT and left IJ central line. 2. Improved bilateral perihilar upper lung zone airspace disease. 3. Persistent right lower lung zone airspace disease. Abdomen X-Ray 07/02/18 00:00 CONCLUSION: No dilated bowel loops to suggest ileus. Objective Remarks: GENERAL: Patient is 72 lying in bed ,Critically ill, intubated sedated SKIN: Warm and dry. HEAD: Normocephalic. EYES: No scleral icterus. No injection or drainage. Anemic ENT: Oral mucosa is dry. Orotracheally intubated NECK: Supple, trachea midline. No JVD or lymphadenopathy. CARDIOVASCULAR: RRR without murmurs, gallops, or rubs. RESPIRATORY: B/l equal air entry GASTROINTESTINAL: Abdomen soft, non-tender, nondistended. MUSCULOSKELETAL: No cyanosis, or edema. Neuro: Intubated sedated moves extremities intermittently,. Assessment and Plan - Assessment and Plan Plan: NEURO: Acute metabolic encephalopathy secondary to sepsis Dilaudid prn pain. CT head negative for acute findings Monitor neuro status closely Off sedation. RESP: Acute hypoxemic respiratory failure Pulmonary edema Acute lung injury Intubated and placed on mechanical ventilation 06/29/2018 On PRVC RR 12, TV 450, IT:1.0, PEEP:5, FIO2 40% Continue bronchodilators, SBT daily as ike CXR 07/01: Improved bilateral perihilar upper lung zone airspace disease. Persistent right lower lung zone airspace disease. CV: Atrial fibrillation with RVR Currently on IV Lasix 20 mg every 12 Monitor HR and BP maintain MAP>65mmHg GI: C. difficile colitis Ileus Squamous cell carcinoma of the anus Moderate protein energy malnutrition Continue TPN consider weaning off TPN and start tube feeds Glucerna 1.5 with goal rate 45ml/hr KUB abdomen 07/02: No dilated bowel loops to suggest ileus. CRS is following- Dr. Coelho FEN/RENAL: GREY Hypernatremia Monitor intake and output. Monitor electrolytes. Replace electrolytes as indicated per ICU electrolyte replacement protocol. On Lasix 2mg BID, D5W@50ml/hr Monitor sodium level ID: Pseudomonas bacteremia 06/25 Severe sepsis with probable GI source C Diff Continue abx- Vancomycin 500 mg p.o. every 6 hours and IV Flagyl for C. difficile,Cefepime Blood culture growing Pseudomonas 06/25. Removed PICC 06/26. HEME: Squamous cell carcinoma anorectal Pancytopenia SCC anus - s/p chemo completed 06/13. Radiation therapy on hold per Dr. Concepcion. Monitor CBC, coags. Plt and blood product transfusion per heme. s/p PLT transfusion 07/01 ENDO: Hyperglycemia On SSI medium scale with accuchecks for glycemic control On Synthroid 50 mcg daily. TSH:0.98 on 06/27 PROPH: SCD for DVT prophylaxis. On Protonix 40mg Q12 for GI prophylaxis Doppler US RUE 06/29: Mild nonocclusive thrombus in the right axillary vein to the brachial vein ACCESS: Removed right upper extremity PICC 06/26. L IJ CVL placed 06/26 Palliative care following Full code CCT 35 mins excluding procedures
[2018-07-03] MEDS: Pantoprazole Inj 40 MG Vial IV.PUSH SCH ×2 (09:51→21:34)
[2018-07-03] MEDS: Chlorhexidine 0.12% Oral Kit 15 ML UDC OROPHARYNG SCH ×2 (09:51→20:03)
[2018-07-03] MEDS: Sodium Chloride 0.9% 2 ML Flush BID IV.FLUSH SCH ×2 (09:52→23:22)
--- NOTE | 2018-07-03 12:24 | XR ---
EXAM DATE: 07/03/2018 12:00 AM EDT AGE/SEX: 72 years / Female INDICATIONS: Evaluate NG tube placement CLINICAL DATA: This is the patient's subsequent encounter. Patient reports that signs and symptoms h ave been present for 4 - 6 days and indicates a pain score of Nonresponsive. MEDICAL/SURGICAL HISTORY: . Diverticulitis. GERD, Anemia, cervical cancer, . Appendectomy. H ysterectomy. breast biopsy lumpectomy, sigmoid polypectomy COMPARISON: [facility] [place], CHEST 1V SINGLE AP, 07/01/2018. [facility] [place], CT CHEST W/O CONTRAST, 06/28/2018. . FINDINGS: A single AP view of the chest demonstrates bilateral perihilar and right lower lobe airspace disease. There is also rounded opacity in the left upper lobe measuring 3 cm. Endotracheal tube and left jugu lar central line stable position. Nasogastric tube with tip in stomach. The cardiomediastinal contou rs are unremarkable. Osseous structures are intact. CONCLUSION: 1. Bilateral perihilar and right lower lobe airspace disease not significant change. 2. Rounded density overlying the left upper lung could be external to patient. Attention to this are a on follow-up studies recommended. Electronically signed by: Denezl Meyre MD 07/03/2018 12:23 PM EDT
--- NOTE | 2018-07-03 13:14 | P.DIET ---
Nutritional Evaluation Type of nutrition evaluation: initial Nutrition consult regarding: Tube Feeding, TPN/PPN Nutrition screening: [facility] Objective - Diagnosis Diarrhea. PMH See H&P - Objective [place] body weight: 53 kg % IBW: 100 Body Weight Used for Calculations: Actual Energy Needs - Lower Range (kCal/kg): 30 Energy Needs - Upper Range (kCal/kg): 35 Lower Limit kCal/kg (kCals): 1,590 Upper Limit kCal/kg (kCals): 1,855 Lower Limit Protein Factor (Grams per Kg): 1 Upper Limit Protein Factor (Grams per Kg): 1.5 Lower Protein Needs (Protein): 53 Upper Protein Needs (Protein): 80 Dietitian Reviewed in Medical Record: Curent medications, Intake & Output, Labs , Medical history, TPN/PPN Diet Order: NPO Objective Comments: Synthroid QD Assessment Assessment: Pt. with no events overnight. Off sedation. Tolerated CPAP x 6 hrs yesterday. Afebrile. Pt. with +UOP, +BM and wt. start Pt. has been started on TFing. Recommend changing TFing to Jevity 1.5 with a goal rate of 55mls/hr. over 22 hours. When tolerating TFing at 20mls/hr, d/c lipids. When TFing gets to goal rate of 55mls/hr. wean TPN per protocol. Monitor TFIng tolerance and labs. Recommendations: 1. Recommend changing TFing to Jevity 1.5 with a goal rate of 55mls/hr. over 22 hours. 2. When tolerating TFing at 20mls/hr, d/c lipids. 3. When TFing gets to goal rate of 55mls/hr wean TPN per protocol. 4. Monitor TFIng tolerance and labs. Dietitian to Monitor: Lab values, Electrolytes, Renal labs, Glucose level, TPN/ PPN tolerance, Weight change, Diet advancement, Wound/skin status, Medical course
--- NOTE | 2018-07-03 14:16 | P.PNONC ---
Subjective Interval history: Afebrile. Patient off sedation, remains intubated currently on CPAP. Patient with eyes open, tracking. She will not follow commands, however moves left foot to touch. Does not move right foot. All fingers and toes are pink and warm to the touch today. RN is at the bedside. Patient no longer with rectal tube, nurse states she does have minimal diarrhea still. She has been converted from TPN to tube feeds. Objective Vital Signs/Intake & Output: Vital Signs 07/02/18 15:00 07/02/18 15:07 07/02/18 16:00 Temperature Pulse Rate 94 H 97 H 94 H Respiratory Rate 24 23 23 Blood Pressure 126/74 125/73 Pulse Oximetry 96 07/02/18 17:00 07/02/18 18:00 07/02/18 19:00 Temperature Pulse Rate 97 H 97 H 97 H Respiratory Rate 24 25 H 24 Blood Pressure 135/78 135/79 128/73 Pulse Oximetry 100 07/02/18 20:00 07/02/18 20:25 07/02/18 20:27 Temperature 98.9 F Pulse Rate 91 H 97 H Respiratory Rate 22 25 H 25 H Blood Pressure 121/65 Pulse Oximetry 100 99 07/02/18 21:00 07/02/18 22:00 07/02/18 23:00 Temperature Pulse Rate 101 H 100 H 99 H Respiratory Rate 22 24 21 Blood Pressure 134/76 141/80 H 128/77 Pulse Oximetry 99 97 99 07/03/18 00:00 07/03/18 00:37 07/03/18 01:00 Temperature 98.7 F Pulse Rate 92 H 104 H 94 H Respiratory Rate 20 22 15 Blood Pressure 120/71 123/75 Pulse Oximetry 99 98 99 07/03/18 02:00 07/03/18 03:00 07/03/18 03:48 Temperature Pulse Rate 94 H 102 H 104 H Respiratory Rate 22 24 25 H Blood Pressure 122/71 134/75 Pulse Oximetry 99 98 98 07/03/18 04:00 07/03/18 05:00 07/03/18 06:00 Temperature Pulse Rate 98 H 106 H 96 H Respiratory Rate 14 24 22 Blood Pressure 122/75 131/80 126/70 Pulse Oximetry 99 99 99 07/03/18 07:00 07/03/18 08:00 10/11/18 08:20 Temperature Pulse Rate 96 H 100 H 100 H Respiratory Rate 19 26 H 24 Blood Pressure 128/79 156/87 H Pulse Oximetry 99 98 98 07/03/18 09:00 07/03/18 10:00 07/03/18 11:49 Temperature Pulse Rate 99 H 95 H 92 H Respiratory Rate 24 24 20 Blood Pressure 150/76 H 145/80 H Pulse Oximetry 99 97 98 Intake & Output 07/02/18 07/03/18 07/03/18 18:59 06:59 18:59 Intake Total 700 / 700 3618.0187 / 3618.0187 250 / 250 Output Total 2200 / 2200 1850 / 1850 Balance -1500 / -1500 1768.0187 / 1768.0187 250 / 250 Weight 57 kg Intake: IV 700 / 700 3618.0187 / 3618.0187 250 / 250 Cordarone Inj 450 MG In D5W Inj 100 / 100 241 ML @ 1 MG/MIN 33.33 mls/hr IV.CONT TITRATE PRN Rx#: [id number] D5W Inj 1,000 ML @ 50 mls/hr IV 1000 / 1000 .CONT .Q20H FERN Rx#:[id number] Versed Inj 50 mg In 50 ml @ 2 50 / 50 MG/HR 2 mls/hr IV.CONT TITRATE PRN Rx#:[id number] Flexbumin 25% Inj 100 ML @ 60 100 / 100 100 / 100 mls/hr IV.SIG Q12H FERN Rx#: [id number] Maxipime Inj 2,000 MG In NS Inj 100 / 100 100 / 100 100 / 100 100 ML @ 200 mls/hr IV.SIG Q12H FERN Rx#:[id number] Intralipid 20% Inj 250 ML @ 31. 250 / 250 25 mls/hr IV.SIG Q24H FERN Rx#: [id number] KCl 40 mEq Premix Inj 40 meq In 200 / 200 100 ml @ 25 mls/hr IV.SIG Q2H PRN Rx#:[id number] Sodium Chloride 23.4% Inj 5.5 2067.0187 / 2067.0187 MEQ Sodium Acetate Inj 59 MEQ KCl Inj 40 MEQ Magnesium Chloride Inj 10 MEQ Calcium Chloride Inj 9 MEQ Sodium Phosphate Inj 40 MEQ MVI-12 Inj 10 ML Folvite Inj 1 MG In Clinimix 5%/D20W Inj 2,000 ML @ 42 mls/hr IV.SIG Q24H FERN Rx#: [id number] Flagyl 500 MG Inj 100 ML @ 100 200 / 200 100 / 100 100 / 100 mls/hr IV.SIG Q8H FERN Rx#: [id number] Output: Urine Amount (Catheter) 0 / 2200 1850 / 1850 Indwelling Urethral Catheter 2199 / 0 1850 / 1850 Other: Date of Last Bowel Movement 07/01/18 07/01/18 07/01/18 Result Diagrams: 07/03/18 05:00 07/03/18 05:00 Laboratory Results: Laboratory Results - last 24 hr 07/02/18 07/02/18 07/02/18 17:04 18:00 20:48 WBC RBC Hgb Hct MCV MCH MCHC RDW Plt Count MPV Prelim Diff (Auto) WBC Differential Seg Neuts % (Manual) Band Neuts % (Manual) Lymphocytes % (Manual) Monocytes % (Manual) Metamyelocytes % (Man) Myelocytes % (Man) Promyelocytes % (Man) Abs Neuts (Manual) Differential Comment Platelet Estimate Platelet Morphology Ovalocytes Sodium Potassium 4.2 D Chloride Carbon Dioxide Anion Gap BUN Creatinine Estimated GFR POC Glucose 135 H 143 H Random Glucose Calcium Phosphorus Magnesium Total Bilirubin AST ALT Alkaline Phosphatase Total Protein Albumin 07/03/18 07/03/18 07/03/18 00:46 04:59 05:00 WBC 17.5 H RBC 4.38 Hgb 11.5 L Hct 34.9 L MCV 79.8 L MCH 26.2 L MCHC 32.8 RDW 20.0 H Plt Count 82 L D MPV 11.4 H Prelim Diff (Auto) Manual diff required WBC Differential Manual diff final Seg Neuts % (Manual) 87 H Band Neuts % (Manual) 4 Lymphocytes % (Manual) 1 L Monocytes % (Manual) 3 Metamyelocytes % (Man) 3 H Myelocytes % (Man) 1 H Promyelocytes % (Man) 1 H Abs Neuts (Manual) 16.8 H Differential Comment . Platelet Estimate Low L Platelet Morphology Enlarged H Ovalocytes 1+ H Sodium Potassium Chloride Carbon Dioxide Anion Gap BUN Creatinine Estimated GFR POC Glucose 142 H 136 H Random Glucose Calcium Phosphorus Magnesium Total Bilirubin AST ALT Alkaline Phosphatase Total Protein Albumin 07/03/18 07/03/18 05:00 12:36 WBC RBC Hgb Hct MCV MCH MCHC RDW Plt Count MPV Prelim Diff (Auto) WBC Differential Seg Neuts % (Manual) Band Neuts % (Manual) Lymphocytes % (Manual) Monocytes % (Manual) Metamyelocytes % (Man) Myelocytes % (Man) Promyelocytes % (Man) Abs Neuts (Manual) Differential Comment Platelet Estimate Platelet Morphology Ovalocytes Sodium 145 Potassium 3.6 Chloride 104 Carbon Dioxide 32.1 H Anion Gap 9 BUN 47 H Creatinine 0.87 Estimated GFR 64 L POC Glucose 155 H Random Glucose 143 H Calcium 7.6 L Phosphorus 2.6 Magnesium 1.7 Total Bilirubin 1.0 AST 29 ALT 21 Alkaline Phosphatase 93 Total Protein 6.4 Albumin 3.2 L Culture Results: Microbiology 06/30/18 16:30 Gram Stain - Final Sputum - Endotracheal Sputum Culture - Final No growth in 48 hours 06/27/18 10:50 Aerobic Blood Culture - Final Blood - Peripheral No growth in 5 days Anaerobic Blood Culture - Final No growth in 5 days 06/27/18 10:45 Aerobic Blood Culture - Final Blood - Peripheral No growth in 5 days Anaerobic Blood Culture - Final No growth in 5 days 06/30/18 13:08 Stool Occult Blood (EPIFANIO) - Final Stool Hemoccult negative 06/25/18 12:10 Aerobic Blood Culture - Final Blood - Peripheral Anaerobic Blood Culture - Final QNS - See aerobic report. Imaging Studies: Impressions Abdomen X-Ray 07/02/18 00:00 CONCLUSION: No dilated bowel loops to suggest ileus. Chest X-Ray 07/03/18 00:00 CONCLUSION: 1. Bilateral perihilar and right lower lobe airspace disease not significant change. 2. Rounded density overlying the left upper lung could be external to patient. Attention to this area on follow-up studies recommended. Medications: Active Medications Generic Name Dose Route Start Last Admin Trade Name Freq PRN Reason Stop Dose Admin Albuterol 1 ampul 06/27/18 12:00 07/03/18 11:49 Duoneb Neb (Fern) NEB 1 ampul Q4HR NEB FERN Administration Chlorhexidine Gluconate 15 ml 06/29/18 20:00 07/03/18 09:51 Peridex 0.12% Oral Kit OROPHARYNG 15 ml BID@0800,2000 FERN Administration Dextrose 50 ml 07/01/18 08:03 07/01/18 21:10 D50w Vial IV.PUSH 50 ml UNSCH PRN Administration PER HYPOGLYCEMIA PROTOCOL Furosemide 20 mg 06/28/18 18:00 07/03/18 11:06 Lasix Inj IV.PUSH 20 mg BID@0900,1800 FERN Administration Hydromorphone HCl 0.5 mg 06/26/18 14:00 06/29/18 06:30 Dilaudid Pf Inj IV.PUSH 0.5 mg Q3H PRN Administration PAIN 3-10 Fat Emulsion Intravenous 250 mls @ 31.25 mls/hr 06/27/18 20:00 07/03/18 05:02 Intralipid 20% Inj IV.SIG Infused Q24H FERN Infusion Potassium Chloride 40 meq in 100 mls @ 25 mls/hr 06/28/18 13:34 07/02/18 18: 59 Kcl 40 Meq Premix Inj IV.SIG Infused Q2H PRN Infusion For Potassium 2.8 - 3.2 mEq/L Potassium Phosphate 30 mmol/ 260 mls @ 42 mls/hr 06/28/18 13:34 06/29/18 03: 13 Sodium Chloride IV.SIG Infused UNSCH PRN Infusion SEE LABEL COMMENTS Albumin Human 100 mls @ 60 mls/hr 06/28/18 16:00 07/03/18 06:28 Flexbumin 25% Inj IV.SIG Infused Q12H FERN Infusion Metronidazole/Sodium Chloride 100 mls @ 100 mls/hr 06/28/18 17:00 07/03/18 11 :07 Flagyl 500 Mg Inj IV.SIG Infused Q8H FERN Infusion Sodium Chloride 5.5 meq/ 2,068.0187 mls @ 42 mls/hr 06/30/18 20:00 07/02/18 20:51 Sodium Acetate 59 meq/ IV.SIG 42 mls/hr Potassium Chloride 40 meq/ Q24H FERN Administration Magnesium Chloride 10 meq/ Calcium Chloride 9 meq/ Sodium Phosphate 40 meq/ Multivitamins 10 ml/ Folic Acid 1 mg/ Amino Acids Dextrose 1,000 mls @ 50 mls/hr 07/01/18 08:00 07/03/18 02:07 D5w Inj IV.CONT 50 mls/hr .Q20H FERN Administration Cefepime HCl 2,000 mg/ Sodium 100 mls @ 200 mls/hr 07/02/18 20:00 07/03/18 09 :51 Chloride IV.SIG Infused Q12H FERN Infusion Insulin Human Regular 0 units 07/01/18 12:00 07/03/18 12:50 Novolin R Correctional Sugar Inj SQ 2 units Q4HR FERN Administration Protocol Levothyroxine Sodium 50 mcg 06/26/18 06:00 07/03/18 05:02 Synthroid PO Not Given DAILY@0600 [facility] Miscellaneous Medication 1 each 06/29/18 16:00 07/03/18 12:50 OROPHARYNG 1 each 0000,0400,1200,1600 FERN Administration Ondansetron HCl 4 mg 06/26/18 04:31 06/27/18 14:12 Zofran Inj IV.PUSH 4 mg Q6H PRN Administration NAUSEA OR VOMITING Pantoprazole Sodium 40 mg 06/25/18 16:00 07/03/18 09:51 Protonix Inj IV.PUSH 40 mg Q12HR FERN Administration Sodium Chloride 2 ml 06/27/18 21:00 07/03/18 09:52 Ns Flush IV.FLUSH 2 ml BID FERN Administration Sodium Chloride 2 ml 06/27/18 10:30 06/28/18 06:02 Ns Flush IV.FLUSH 2 ml PRN PRN Administration FLUSH AFTER USING IV ACCESS Vancomycin HCl 500 mg 06/28/18 16:16 07/03/18 12:50 Vancomycin Po PO 500 mg QID FERN Administration Objective Remarks: GENERAL: Critically ill appearing female patient. Intubated. Eyes open, tracking. Not following commands or answering questions. SKIN: Pale, warm and dry. HEAD: Normocephalic. EYES: No scleral icterus. No injection or drainage. NECK: Supple, trachea midline. CARDIOVASCULAR: +S1/S2. RESPIRATORY: Breath sounds equal bilaterally. Intubated, on CPAP. GASTROINTESTINAL: Abdomen soft, non-tender, nondistended. EXTREMITIES: No cyanosis or edema noted. NEUROLOGICAL: Intubated. Eyes opened and tracking. Not following commands. Intermittently moves left foot. Assessment/Plan - Plan Ms. 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 She had received 5 days of chemotherapy, completed on 06/13/2018. She is currently receiving radiation therapy which started on she was admitted for acute renal failure related to dehydration, intractable diarrhea from radiation chemotherapy. Plan: 1. Patient appears to be improving. Remains intubated, currently on CPAP. She tolerated 6 hours yesterday. Her eyes are open and she is tracking. She is still not following commands. 2. Continue antibiotics per infectious disease. 3. Nonocclusive thrombus from previous PICC line. 4. Thrombocytopenia, Platelets have increased to 82,000 today. 5. History of Raynauds syndrome, all fingers and toes are pink and warm to the touch today. 6. Patient has been transitioned from TPN to tube feeds. She no longer has a rectal tube in place. Diarrhea is minimal. Her kidneys appear to be improving. KUB showed no dilated loops to suggest ileus. 7. Repeat CBC in the a.m. - Attending Statement The exam, history, and the medical decision-making described in the above note were completed with the assistance of the mid-level provider. I reviewed and agree with the findings presented. I attest that I had a [id number] encounter with the patient on the same day, and personally performed and documented my assessment and findings in the medical record. Off sedation. Eyes open. Does not follow command. Had received Dilaudid an hour ago. Diarrhea is better Patient has lactose intolerance. NG tube feed has not been started as yet. Consult dietitian. Family will meet with palliative care tomorrow and will make a decision for life support
--- NOTE | 2018-07-03 15:54 | P.PNPAL ---
Reason for Visit Reason for visit: a. To assist with evaluation and management of symptoms including: pain, dyspnea b. To assist medical decision maker(s) with: better understanding of current medical conditions; weighing benefits/burdens of medical treatment options; making medical treatment decisions. Subjective Subjective/Interval History: Pt seen today to follow up on comfort, goals. Remains on [facility] vent in ICU. sedation off, tolerating CPAP for several hrs. 6 hours yesterday. Has been on CPAP today since this AM. Eyes open and appears to track though does not follow commands. Moves all extremities spontaneously. Nurse reports patient is having moderate bouts of diarrhea. TPN is being decreased with plans to start tube feeding today. Today's clinical data as follows: * WBC 17.5, hCG 11.5 HCT 34.9 platelets 82 * NA 145 [place] +3.6, CL 104, carbon dioxide 32.1, BUN 47, creatinine 0.82, glucose 143, albumin 3.2 * CXR bilateral perihilar and right lower lobe airspace disease not significant change, rounded density overlying the upper left lung could be external. Attention to this area on follow-up studies recommended Family/Friend Interactions: Updated daughters Harper and Kristal at bedside. Discussed that their mother is essentially stable, though her white count has increased somewhat. She has been tolerating CPAP and they are hopeful that she will be able to be extubated in the next few days. We revisited her debilitated status, she may not be a candidate for any further chemo/radiation for some time. They wish to remain on this current course of treatment and reconvene tomorrow. They appreciate daily updates. Advance Directives Living Will: Copy in medical record Advance Directives Date on File: 06/30/18 Health Care Surrogate Name and Number: Harper Matt [phone] Maile Moss [phone] Documented care wishes:: The family provided a documented living well. States that she has a terminal condition or end-stage condition or in a persistent vegetative state she does not wish to have life prolonging procedures. She requested that be withheld or withdrawn when the application of such procedures would serve only to prolong artificially the process of dying and that she be permitted to naturally with only the administration of medication or the performance of any medical procedure deemed necessary to provide her. with comfort care or to alleviate pain. She does name her daughters Harper Matt and Maile Moss as her healthcare surrogates, Tisha is primary. Significant change in goals:: No significant change in goals today. We will continue to take patient's recovery day by day. They wish for their mother to remain a full code. Should her condition declined, will discuss de-escalation of care and/or withdrawal. Objective Vital Signs: Vital Signs 07/02/18 16:00 07/02/18 17:00 07/02/18 18:00 Temperature Pulse Rate 94 H 97 H 97 H Respiratory Rate 23 24 25 H Blood Pressure 125/73 135/78 135/79 Pulse Oximetry 07/02/18 19:00 07/02/18 20:00 07/02/18 20:25 Temperature 98.9 F Pulse Rate 97 H 91 H Respiratory Rate 24 22 25 H Blood Pressure 128/73 121/65 Pulse Oximetry 100 100 99 07/02/18 20:27 07/02/18 21:00 07/02/18 22:00 Temperature Pulse Rate 97 H 101 H 100 H Respiratory Rate 25 H 22 24 Blood Pressure 134/76 141/80 H Pulse Oximetry 99 97 07/02/18 23:00 07/03/18 00:00 07/03/18 00:37 Temperature 98.7 F Pulse Rate 99 H 92 H 104 H Respiratory Rate 21 20 22 Blood Pressure 128/77 120/71 Pulse Oximetry 99 99 98 07/03/18 01:00 07/03/18 02:00 07/03/18 03:00 Temperature Pulse Rate 94 H 94 H 102 H Respiratory Rate 15 22 24 Blood Pressure 123/75 122/71 134/75 Pulse Oximetry 99 99 98 07/03/18 03:48 07/03/18 04:00 07/03/18 05:00 Temperature Pulse Rate 104 H 98 H 106 H Respiratory Rate 25 H 14 24 Blood Pressure 122/75 131/80 Pulse Oximetry 98 99 99 07/03/18 06:00 07/03/18 07:00 07/03/18 08:00 Temperature Pulse Rate 96 H 96 H 100 H Respiratory Rate 22 19 26 H Blood Pressure 126/70 128/79 156/87 H Pulse Oximetry 99 99 98 07/03/18 08:20 07/03/18 09:00 07/03/18 10:00 Temperature Pulse Rate 100 H 99 H 95 H Respiratory Rate 24 24 24 Blood Pressure 150/76 H 145/80 H Pulse Oximetry 98 99 97 07/03/18 11:49 Temperature Pulse Rate 92 H Respiratory Rate 20 Blood Pressure Pulse Oximetry 98 Intake & Output 07/02/18 07/03/18 07/03/18 18:59 06:59 18:59 Intake Total 700 / 700 3618.0187 / 3618.0187 250 / 250 Output Total 2200 / 2200 1850 / 1850 Balance -1500 / -1500 1768.0187 / 1768.0187 250 / 250 Weight 57 kg Intake: IV 700 / 700 3618.0187 / 3618.0187 250 / 250 Cordarone Inj 450 MG In D5W Inj 100 / 100 241 ML @ 1 MG/MIN 33.33 mls/hr IV.CONT TITRATE PRN Rx#: [id number] D5W Inj 1,000 ML @ 50 mls/hr IV 1000 / 1000 .CONT .Q20H PABLO Rx#:[id number] Versed Inj 50 mg In 50 ml @ 2 50 / 50 MG/HR 2 mls/hr IV.CONT TITRATE PRN Rx#:[id number] Flexbumin 25% Inj 100 ML @ 60 100 / 100 100 / 100 mls/hr IV.SIG Q12H PABLO Rx#: [id number] Maxipime Inj 2,000 MG In NS Inj 100 / 100 100 / 100 100 / 100 100 ML @ 200 mls/hr IV.SIG Q12H PABLO Rx#:[id number] Intralipid 20% Inj 250 ML @ 31. 250 / 250 25 mls/hr IV.SIG Q24H PABLO Rx#: [id number] KCl 40 mEq Premix Inj 40 meq In 200 / 200 100 ml @ 25 mls/hr IV.SIG Q2H PRN Rx#:[id number] Sodium Chloride 23.4% Inj 5.5 8.0187 / 2067.0187 MEQ Sodium Acetate Inj 59 MEQ KCl Inj 40 MEQ Magnesium Chloride Inj 10 MEQ Calcium Chloride Inj 9 MEQ Sodium Phosphate Inj 40 MEQ MVI-12 Inj 10 ML Folvite Inj 1 MG In Clinimix 5%/D20W Inj 2,000 ML @ 42 mls/hr IV.SIG Q24H PABLO Rx#: [id number] Flagyl 500 MG Inj 100 ML @ 100 200 / 200 100 / 100 100 / 100 mls/hr IV.SIG Q8H PABLO Rx#: [id number] Output: Urine Amount (Catheter) 2199 Indwelling Urethral Catheter 2199 Other: Date of Last Bowel Movement 07/01/18 07/01/18 07/01/18 Physical Exam: CONSTITUTIONAL/GENERAL: ill appearing female, on mech vent TUBES/LINES/DRAINS: IJ central line, gutierrez catheter, soft restraints BUE SKIN: No jaundice, rashes, or lesions.+Ecchymoses on upper extremities. No wounds seen anteriorly.skin warm/dry EYES: Pupils 3mm, reactive to light , left slightly larger than right. opens eyes to voice, appears to track. No scleral icterus. No injection or drainage. Fundi not examined. CARDIOVASCULAR: Tachycardic . Heart regular. No JVD. Peripheral pulses symmetric. RESPIRATORY/CHEST: Symmetric,un labored respirations on mech vent CPAP, slightly tachypneic. Rhonci heard LML, decreased air movement. Breath sounds equal bilaterally. GASTROINTESTINAL: Abdomen soft, mild distention and slightly tympanic. + mild tenderness, becomes tense with palp. No palpable masses. Bowel sounds intermittent /infrequent GENITOURINARY: Without palpable bladder distension. Gutierrez catheter in place. clear yellow urine present. MUSCULOSKELETAL: peripheral pulses palpable. all periphery warm and pink to touch. Cap refill brisk. Right hand appears swollen NEUROLOGICAL: eyes open to voice, appears to track. No longer on sedation. No following of commands. moves all extremities though not on command. PSYCHIATRIC: No obvious anxiety/depression- limited assess due to clinical condition. Diagnostic Tests Laboratory: Laboratory Results - last 72 hr 06/30/18 06/30/18 07/01/18 10:07 18:13 00:29 WBC RBC Hgb Hct MCV MCH MCHC RDW Plt Count MPV Prelim Diff (Auto) WBC Differential Seg Neuts % (Manual) Band Neuts % (Manual) Lymphocytes % (Manual) Monocytes % (Manual) Eosinophils % (Manual) Metamyelocytes % (Man) Myelocytes % (Man) Promyelocytes % (Man) Abs Neuts (Manual) Nucleated RBCs/100 WBC Differential Comment Toxic Vacuolation Platelet Estimate Platelet Morphology Ovalocytes Keratocytes Puncture Site Patient Temperature O2 Saturation ABG pH ABG pCO2 ABG pO2 ABG HCO3 ABG O2 Content ABG Base Excess ABG Methemoglobin Flako Test Hemoglobin Carboxyhemoglobin O2 Delivery Device Vent Setting Inspired O2 Critical Value Sodium Potassium Chloride Carbon Dioxide Anion Gap BUN Creatinine Estimated GFR POC Glucose 230 H 181 H Random Glucose Calcium Prot Corrected Calcium Phosphorus Magnesium Total Bilirubin AST ALT Alkaline Phosphatase Total Protein Albumin Bld Prod Order Comment 07/01/18 07/01/18 07/01/18 03:00 03:00 06:12 WBC 15.3 H RBC 4.92 Hgb 13.0 D Hct 38.7 MCV 78.6 L MCH 26.4 L MCHC 33.5 RDW 19.4 H Plt Count 12 L* MPV 10.8 Prelim Diff (Auto) Manual diff required WBC Differential Manual diff final Seg Neuts % (Manual) 63 Band Neuts % (Manual) 23 H Lymphocytes % (Manual) 5 L Monocytes % (Manual) 7 Eosinophils % (Manual) Metamyelocytes % (Man) 1 Myelocytes % (Man) Promyelocytes % (Man) 1 H Abs Neuts (Manual) 13.5 H Nucleated RBCs/100 WBC 3 H Differential Comment . Toxic Vacuolation Present H Platelet Estimate Rare L Platelet Morphology Normal Ovalocytes 1+ H Keratocytes Occ H Puncture Site Patient Temperature O2 Saturation ABG pH ABG pCO2 ABG pO2 ABG HCO3 ABG O2 Content ABG Base Excess ABG Methemoglobin Flako Test Hemoglobin Carboxyhemoglobin O2 Delivery Device Vent Setting Inspired O2 Critical Value Sodium 154 H Potassium 3.9 D Chloride 113 H Carbon Dioxide 30.5 Anion Gap 11 BUN 65 H Creatinine 1.16 H Estimated GFR 46 L POC Glucose 216 H Random Glucose 225 H Calcium 6.8 L* Prot Corrected Calcium 7.5 L Phosphorus 2.4 L Magnesium 1.6 Total Bilirubin 1.2 H AST 38 H ALT 44 Alkaline Phosphatase 92 Total Protein 5.8 L D Albumin 2.8 L Bld Prod Order Comment 07/01/18 07/01/18 07/01/18 08:31 09:47 09:50 WBC RBC Hgb Hct MCV MCH MCHC RDW Plt Count MPV Prelim Diff (Auto) WBC Differential Seg Neuts % (Manual) Band Neuts % (Manual) Lymphocytes % (Manual) Monocytes % (Manual) Eosinophils % (Manual) Metamyelocytes % (Man) Myelocytes % (Man) Promyelocytes % (Man) Abs Neuts (Manual) Nucleated RBCs/100 WBC Differential Comment Toxic Vacuolation Platelet Estimate Platelet Morphology Ovalocytes Keratocytes Puncture Site Right radial Patient Temperature 98.6 O2 Saturation 97 ABG pH 7.56 H* ABG pCO2 32 L ABG pO2 185 H ABG HCO3 28 H ABG O2 Content 16.6 ABG Base Excess 5.6 H ABG Methemoglobin 1.8 Flako Test Present Hemoglobin 12.0 Carboxyhemoglobin 0.4 O2 Delivery Device Ventilator Vent Setting See comments Inspired O2 45 Critical Value Yes Sodium Potassium Chloride Carbon Dioxide Anion Gap BUN Creatinine Estimated GFR POC Glucose Random Glucose Calcium Prot Corrected Calcium Phosphorus Magnesium Total Bilirubin AST ALT Alkaline Phosphatase Total Protein Albumin Bld Prod Order Comment Cancelled 07/01/18 07/01/18 07/01/18 12:07 16:35 21:00 WBC RBC Hgb Hct MCV MCH MCHC RDW Plt Count MPV Prelim Diff (Auto) WBC Differential Seg Neuts % (Manual) Band Neuts % (Manual) Lymphocytes % (Manual) Monocytes % (Manual) Eosinophils % (Manual) Metamyelocytes % (Man) Myelocytes % (Man) Promyelocytes % (Man) Abs Neuts (Manual) Nucleated RBCs/100 WBC Differential Comment Toxic Vacuolation Platelet Estimate Platelet Morphology Ovalocytes Keratocytes Puncture Site Patient Temperature O2 Saturation ABG pH ABG pCO2 ABG pO2 ABG HCO3 ABG O2 Content ABG Base Excess ABG Methemoglobin Flako Test Hemoglobin Carboxyhemoglobin O2 Delivery Device Vent Setting Inspired O2 Critical Value Sodium Potassium Chloride Carbon Dioxide Anion Gap BUN Creatinine Estimated GFR POC Glucose 170 H 198 H 47 L* Random Glucose Calcium Prot Corrected Calcium Phosphorus Magnesium Total Bilirubin AST ALT Alkaline Phosphatase Total Protein Albumin Bld Prod Order Comment 07/01/18 07/02/18 07/02/18 21:28 00:37 03:48 WBC RBC Hgb Hct MCV MCH MCHC RDW Plt Count MPV Prelim Diff (Auto) WBC Differential Seg Neuts % (Manual) Band Neuts % (Manual) Lymphocytes % (Manual) Monocytes % (Manual) Eosinophils % (Manual) Metamyelocytes % (Man) Myelocytes % (Man) Promyelocytes % (Man) Abs Neuts (Manual) Nucleated RBCs/100 WBC Differential Comment Toxic Vacuolation Platelet Estimate Platelet Morphology Ovalocytes Keratocytes Puncture Site Patient Temperature O2 Saturation ABG pH ABG pCO2 ABG pO2 ABG HCO3 ABG O2 Content ABG Base Excess ABG Methemoglobin Flako Test Hemoglobin Carboxyhemoglobin O2 Delivery Device Vent Setting Inspired O2 Critical Value Sodium Potassium Chloride Carbon Dioxide Anion Gap BUN Creatinine Estimated GFR POC Glucose 286 H 182 H 180 H Random Glucose Calcium Prot Corrected Calcium Phosphorus Magnesium Total Bilirubin AST ALT Alkaline Phosphatase Total Protein Albumin Bld Prod Order Comment 07/02/18 07/02/18 07/02/18 05:00 05:00 08:51 WBC 16.9 H RBC 3.90 L Hgb 10.3 L D Hct 31.4 L MCV 80.4 MCH 26.4 L MCHC 32.8 RDW 19.7 H Plt Count 38 L D MPV 9.8 Prelim Diff (Auto) Manual diff required WBC Differential Manual diff final Seg Neuts % (Manual) 64 Band Neuts % (Manual) 18 H Lymphocytes % (Manual) 3 L Monocytes % (Manual) 2 Eosinophils % (Manual) 1 Metamyelocytes % (Man) 5 H Myelocytes % (Man) 5 H Promyelocytes % (Man) 2 H Abs Neuts (Manual) 15.9 H Nucleated RBCs/100 WBC 2 H Differential Comment . Toxic Vacuolation Platelet Estimate Low L Platelet Morphology Enlarged H Ovalocytes 1+ H Keratocytes Puncture Site Patient Temperature O2 Saturation ABG pH ABG pCO2 ABG pO2 ABG HCO3 ABG O2 Content ABG Base Excess ABG Methemoglobin Flako Test Hemoglobin Carboxyhemoglobin O2 Delivery Device Vent Setting Inspired O2 Critical Value Sodium 149 H Potassium 2.9 L* D Chloride 106 Carbon Dioxide 31.2 Anion Gap 12 BUN 52 H Creatinine 0.99 Estimated GFR 55 L POC Glucose 122 H Random Glucose 140 H Calcium 7.2 L* Prot Corrected Calcium 7.7 L Phosphorus 2.9 Magnesium 1.7 Total Bilirubin 1.1 H AST 25 ALT 22 Alkaline Phosphatase 79 Total Protein 6.2 L Albumin 3.6 D Bld Prod Order Comment 07/02/18 07/02/18 07/02/18 12:16 17:04 18:00 WBC RBC Hgb Hct MCV MCH MCHC RDW Plt Count MPV Prelim Diff (Auto) WBC Differential Seg Neuts % (Manual) Band Neuts % (Manual) Lymphocytes % (Manual) Monocytes % (Manual) Eosinophils % (Manual) Metamyelocytes % (Man) Myelocytes % (Man) Promyelocytes % (Man) Abs Neuts (Manual) Nucleated RBCs/100 WBC Differential Comment Toxic Vacuolation Platelet Estimate Platelet Morphology Ovalocytes Keratocytes Puncture Site Patient Temperature O2 Saturation ABG pH ABG pCO2 ABG pO2 ABG HCO3 ABG O2 Content ABG Base Excess ABG Methemoglobin Flako Test Hemoglobin Carboxyhemoglobin O2 Delivery Device Vent Setting Inspired O2 Critical Value Sodium Potassium 4.2 D Chloride Carbon Dioxide Anion Gap BUN Creatinine Estimated GFR POC Glucose 145 H 135 H Random Glucose Calcium Prot Corrected Calcium Phosphorus Magnesium Total Bilirubin AST ALT Alkaline Phosphatase Total Protein Albumin Bld Prod Order Comment 07/02/18 07/03/18 07/03/18 20:48 00:46 04:59 WBC RBC Hgb Hct MCV MCH MCHC RDW Plt Count MPV Prelim Diff (Auto) WBC Differential Seg Neuts % (Manual) Band Neuts % (Manual) Lymphocytes % (Manual) Monocytes % (Manual) Eosinophils % (Manual) Metamyelocytes % (Man) Myelocytes % (Man) Promyelocytes % (Man) Abs Neuts (Manual) Nucleated RBCs/100 WBC Differential Comment Toxic Vacuolation Platelet Estimate Platelet Morphology Ovalocytes Keratocytes Puncture Site Patient Temperature O2 Saturation ABG pH ABG pCO2 ABG pO2 ABG HCO3 ABG O2 Content ABG Base Excess ABG Methemoglobin Flako Test Hemoglobin Carboxyhemoglobin O2 Delivery Device Vent Setting Inspired O2 Critical Value Sodium Potassium Chloride Carbon Dioxide Anion Gap BUN Creatinine Estimated GFR POC Glucose 143 H 142 H 136 H Random Glucose Calcium Prot Corrected Calcium Phosphorus Magnesium Total Bilirubin AST ALT Alkaline Phosphatase Total Protein Albumin Bld Prod Order Comment 07/03/18 07/03/18 07/03/18 05:00 05:00 12:36 WBC 17.5 H RBC 4.38 Hgb 11.5 L Hct 34.9 L MCV 79.8 L MCH 26.2 L MCHC 32.8 RDW 20.0 H Plt Count 82 L D MPV 11.4 H Prelim Diff (Auto) Manual diff required WBC Differential Manual diff final Seg Neuts % (Manual) 87 H Band Neuts % (Manual) 4 Lymphocytes % (Manual) 1 L Monocytes % (Manual) 3 Eosinophils % (Manual) Metamyelocytes % (Man) 3 H Myelocytes % (Man) 1 H Promyelocytes % (Man) 1 H Abs Neuts (Manual) 16.8 H Nucleated RBCs/100 WBC Differential Comment . Toxic Vacuolation Platelet Estimate Low L Platelet Morphology Enlarged H Ovalocytes 1+ H Keratocytes Puncture Site Patient Temperature O2 Saturation ABG pH ABG pCO2 ABG pO2 ABG HCO3 ABG O2 Content ABG Base Excess ABG Methemoglobin Flako Test Hemoglobin Carboxyhemoglobin O2 Delivery Device Vent Setting Inspired O2 Critical Value Sodium 145 Potassium 3.6 Chloride 104 Carbon Dioxide 32.1 H Anion Gap 9 BUN 47 H Creatinine 0.87 Estimated GFR 64 L POC Glucose 155 H Random Glucose 143 H Calcium 7.6 L Prot Corrected Calcium Phosphorus 2.6 Magnesium 1.7 Total Bilirubin 1.0 AST 29 ALT 21 Alkaline Phosphatase 93 Total Protein 6.4 Albumin 3.2 L Bld Prod Order Comment Result Diagrams: 07/04/18 03:30 07/04/18 03:30 Microbiology: Microbiology 06/30/18 16:30 Gram Stain - Final Sputum - Endotracheal Sputum Culture - Final No growth in 48 hours 06/27/18 10:50 Aerobic Blood Culture - Final Blood - Peripheral No growth in 5 days Anaerobic Blood Culture - Final No growth in 5 days 06/27/18 10:45 Aerobic Blood Culture - Final Blood - Peripheral No growth in 5 days Anaerobic Blood Culture - Final No growth in 5 days 06/30/18 13:08 Stool Occult Blood (EPIFANIO) - Final Stool Hemoccult negative 06/25/18 12:10 Aerobic Blood Culture - Final Blood - Peripheral Anaerobic Blood Culture - Final QNS - See aerobic report. Imaging: Impressions Abdomen X-Ray 07/02/18 00:00 CONCLUSION: No dilated bowel loops to suggest ileus. Chest X-Ray 07/03/18 00:00 CONCLUSION: 1. Bilateral perihilar and right lower lobe airspace disease not significant change. 2. Rounded density overlying the left upper lung could be external to patient. Attention to this area on follow-up studies recommended. Procedures: 06/26/18 - LIJ placement 06/29/18 - intubated Assessment and Plan - Disease Oriented Problem List (1) Rectal cancer - Symptom Scale (1) Pain 0-10 Scale: Unable to quantify Comment: intubated, does show some nonverbal pain cues (2) Debility 0-10 Scale: Unable to quantify (3) Dyspnea 0-10 Scale: Unable to quantify Comment: remains intubated though tolerating CPAP Pertinent Non-Medical Issues: Psychosocial: Ms. Barraza is currently though her is living in a [facility] with dementia. She is originally from [place] but has been living in [place] for greater than 5 years. She has 2 biological daughters and multiple stepchildren with her . She is described as a very energetic and caring woman. Spiritual:Congregational Legal: The patient is no longer able to participate in her own medical care. Her family has provided a documented living will that names her daughters Harper and Maile as surrogates Ethical issues impacting care: There are no known ethical issues impacting care at this time. Important Contacts: Maile Moss, daughter/HCP [phone] Harper Matt, daughter/HCP [phone] Prognosis: The patient currently has a poor prognosis. Though her cancer may be treatable she is currently too debilitated to undergo any type of aggressive chemotherapy or radiation therapy. She is at risk for further decline and decompensation due to sepsis, protein calorie malnutrition, atrial fibrillation, etc. She is at risk for further respiratory and cardiac decline, further debility, and . Code Status: Full Code Plan: * LEGAL DECISION MAKER: Patient currently intubated and unable to participate in decision-making. Living will names daughter Madison is primary HCS, other daughter Kristal is secondary. * GOALS: Family wishes to monitor patient in the coming days for improvement versus deterioration. Goals remain aggressive at this time, including full code. Family would like to continue to monitor patient's clinical condition day by day. They appreciate daily updates.. Will reconvene on Saturday to reevaluate continued aggressive treatment versus de-escalation and withdrawal. They had indicated they might wish to proceed with compassionate withdrawal of life support if patient does not experience significant improvement towards recovery. * CODE STATUS: Full code * SYMPTOMS: Debility - the family and patient state she has had a rapid decline physical ability during this hospital admission. This is multifactorial given her protein calorie malnourishment and sepsis. Weaning TPN and planning to start tube feeding today. Cdiff colitis. Dyspnea - currently mechanically ventilated, is slightly tachypneic. Follow current recommendations from critical care, Versed gtt held as pt has been on CPAP trials. Suggest follow up CXR for continued assessment of new density seen on 07/03/18 x-ray Painpreviously used Percocet without good relief has been switched to Dilaudid since being in the ICU. In light of hypotension due to sepsis has not received. Is currently using barrier cream and Silvadene for topical pain relief after bowel movements. Now on [facility] vent, light sedation (held for CPAP) . Some grimacing/tachypnea noted, ?pain, May need to revisit opioid use for pain if patient able to maintain BP. Spoke with RN at bedside, pt would benefit from PRN opioid ordered as BP has been stable. * Palliative care will continue to follow during hospital course as condition evolves, to assist patient/decision maker with understanding of medical conditions, weighing benefits/burdens of treatment options, for clarification of goals of treatment. Additionally will assist with any symptoms of palliative concern. Attestation Collaborating MD Comments: dual visit sherice Harris APRN. Concur w above documentation Attestation: To help prompt me to consider important information that might be impacting today's encounter and assessment, information from prior notes written by myself or my colleagues may have been "brought forward" into today's note. My signature on this note, however, is an attestation that I personally performed the exam, history, and/or decision-making noted today, and, unless otherwise indicated, the interactions with patient, family, and staff as well as the review of records all occurred today. I also attest that the listed assessment and stated plan reflect my best clinical judgment today based on the combination of historical information, prior notes, and today's exam/ interactions. When time spent is documented, it refers only to time spent today by the signer, or if indicated, combined time spent today by collaborating physician/nurse practitioner.
[2018-07-03] MEDS: HYDROmorphone PF Inj 2 MG/ML Vial IV.PUSH PRN ×3 (16:24→23:22)
--- NOTE | 2018-07-03 17:29 | P.PNID ---
Subjective Remarks: minimal secretions remains on vent, tolerates CPAP severe very liquid diarrhea plts improved to 82 Antibiotics: meropenem vanco PO flagyl micafungin Past Medical History: anal cancer Allergies/Adverse Reactions: Allergies No Known Allergies Allergy (Verified 06/25/18 12:06) Objective Vital Signs 07/02/18 18:00 07/02/18 19:00 07/02/18 20:00 Temperature 98.9 F Pulse Rate 97 H 97 H 91 H Respiratory Rate 25 H 24 22 Blood Pressure 135/79 128/73 121/65 Pulse Oximetry 100 100 07/02/18 20:25 07/02/18 20:27 07/02/18 21:00 Temperature Pulse Rate 97 H 101 H Respiratory Rate 25 H 25 H 22 Blood Pressure 134/76 Pulse Oximetry 99 99 07/02/18 22:00 07/02/18 23:00 07/03/18 00:00 Temperature 98.7 F Pulse Rate 100 H 99 H 92 H Respiratory Rate 24 21 20 Blood Pressure 141/80 H 128/77 120/71 Pulse Oximetry 97 99 99 07/03/18 00:37 07/03/18 01:00 07/03/18 02:00 Temperature Pulse Rate 104 H 94 H 94 H Respiratory Rate 22 15 22 Blood Pressure 123/75 122/71 Pulse Oximetry 98 99 99 07/03/18 03:00 07/03/18 03:48 07/03/18 04:00 Temperature Pulse Rate 102 H 104 H 98 H Respiratory Rate 24 25 H 14 Blood Pressure 134/75 122/75 Pulse Oximetry 98 98 99 07/03/18 05:00 07/03/18 06:00 07/03/18 07:00 Temperature Pulse Rate 106 H 96 H 96 H Respiratory Rate 24 22 19 Blood Pressure 131/80 126/70 128/79 Pulse Oximetry 99 99 99 07/03/18 08:00 07/03/18 08:20 07/03/18 09:00 Temperature Pulse Rate 100 H 100 H 99 H Respiratory Rate 26 H 24 24 Blood Pressure 156/87 H 150/76 H Pulse Oximetry 98 98 99 07/03/18 10:00 07/03/18 11:49 07/03/18 12:00 Temperature 98.7 F Pulse Rate 95 H 92 H 95 H Respiratory Rate 24 20 19 Blood Pressure 145/80 H 136/78 Pulse Oximetry 97 98 98 07/03/18 16:00 07/03/18 16:01 Temperature 98.8 F Pulse Rate 89 94 H Respiratory Rate 21 23 Blood Pressure 123/74 Pulse Oximetry 98 99 Intake & Output 07/02/18 07/03/18 07/03/18 18:59 06:59 18:59 Intake Total 700 / 700 3618.0187 / 3618.0187 280 / 280 Output Total 2200 / 2200 1850 / 1850 750 / 750 Balance -1500 / -1500 1768.0187 / 1768.0187 -470 / -470 Weight 57 kg Intake: IV 700 / 700 3618.0187 / 3618.0187 250 / 250 Cordarone Inj 450 MG In D5W Inj 100 / 100 241 ML @ 1 MG/MIN 33.33 mls/hr IV.CONT TITRATE PRN Rx#: [id number] D5W Inj 1,000 ML @ 50 mls/hr IV 1000 / 1000 .CONT .Q20H PABLO Rx#:[id number] Versed Inj 50 mg In 50 ml @ 2 50 / 50 MG/HR 2 mls/hr IV.CONT TITRATE PRN Rx#:[id number] Flexbumin 25% Inj 100 ML @ 60 100 / 100 100 / 100 mls/hr IV.SIG Q12H PABLO Rx#: [id number] Maxipime Inj 2,000 MG In NS Inj 100 / 100 100 / 100 100 / 100 100 ML @ 200 mls/hr IV.SIG Q12H PABLO Rx#:[id number] Intralipid 20% Inj 250 ML @ 31. 250 / 250 25 mls/hr IV.SIG Q24H PABLO Rx#: [id number] KCl 40 mEq Premix Inj 40 meq In 200 / 200 100 ml @ 25 mls/hr IV.SIG Q2H PRN Rx#:[id number] Sodium Chloride 23.4% Inj 5.5 8.0187 / 2067.0187 MEQ Sodium Acetate Inj 59 MEQ KCl Inj 40 MEQ Magnesium Chloride Inj 10 MEQ Calcium Chloride Inj 9 MEQ Sodium Phosphate Inj 40 MEQ MVI-12 Inj 10 ML Folvite Inj 1 MG In Clinimix 5%/D20W Inj 2,000 ML @ 42 mls/hr IV.SIG Q24H PABLO Rx#: [id number] Flagyl 500 MG Inj 100 ML @ 100 200 / 200 100 / 100 100 / 100 mls/hr IV.SIG Q8H PABLO Rx#: [id number] Tube Irrigant Output: Urine Amount (Catheter) 2199 1850 / 1850 750 / 750 Indwelling Urethral Catheter 2199 1850 / 1850 750 / 750 Other: Date of Last Bowel Movement 07/01/18 07/01/18 07/03/18 # Bowel Movements 4 06/30/18 16:30 Sputum - Endotracheal Gram Stain - Final 06/30/18 16:30 Sputum - Endotracheal Sputum Culture - Final No growth in 48 hours 06/27/18 10:50 Blood - Peripheral Aerobic Blood Culture - Final No growth in 5 days 06/27/18 10:50 Blood - Peripheral Anaerobic Blood Culture - Final No growth in 5 days 06/27/18 10:45 Blood - Peripheral Aerobic Blood Culture - Final No growth in 5 days 06/27/18 10:45 Blood - Peripheral Anaerobic Blood Culture - Final No growth in 5 days 06/30/18 13:08 Stool Stool Occult Blood (EPIFANIO) - Final Hemoccult negative Lab - Hematology Results 07/02/18 07/03/18 05:00 05:00 WBC 16.9 H 17.5 H RBC 3.90 L 4.38 Hgb 10.3 L D 11.5 L Hct 31.4 L 34.9 L MCV 80.4 79.8 L MCH 26.4 L 26.2 L MCHC 32.8 32.8 RDW 19.7 H 20.0 H Plt Count 38 L D 82 L D MPV 9.8 11.4 H Prelim Diff (Auto) Manual diff required Manual diff required WBC Differential Manual diff final Manual diff final Seg Neuts % (Manual) 64 87 H Band Neuts % (Manual) 18 H 4 Lymphocytes % (Manual) 3 L 1 L Monocytes % (Manual) 2 3 Eosinophils % (Manual) 1 Metamyelocytes % (Man) 5 H 3 H Myelocytes % (Man) 5 H 1 H Promyelocytes % (Man) 2 H 1 H Abs Neuts (Manual) 15.9 H 16.8 H Nucleated RBCs/100 WBC 2 H Differential Comment . . Platelet Estimate Low L Low L Platelet Morphology Enlarged H Enlarged H Ovalocytes 1+ H 1+ H Lab - Chemistry Results 07/01/18 07/01/18 07/02/18 21:00 21:28 00:37 Sodium Potassium Chloride Carbon Dioxide Anion Gap BUN Creatinine Estimated GFR POC Glucose 47 L* 286 H 182 H Random Glucose Calcium Prot Corrected Calcium Phosphorus Magnesium Total Bilirubin AST ALT Alkaline Phosphatase Total Protein Albumin 07/02/18 07/02/18 07/02/18 03:48 05:00 08:51 Sodium 149 H Potassium 2.9 L* D Chloride 106 Carbon Dioxide 31.2 Anion Gap 12 BUN 52 H Creatinine 0.99 Estimated GFR 55 L POC Glucose 180 H 122 H Random Glucose 140 H Calcium 7.2 L* Prot Corrected Calcium 7.7 L Phosphorus 2.9 Magnesium 1.7 Total Bilirubin 1.1 H AST 25 ALT 22 Alkaline Phosphatase 79 Total Protein 6.2 L Albumin 3.6 D 07/02/18 07/02/18 07/02/18 12:16 17:04 18:00 Sodium Potassium 4.2 D Chloride Carbon Dioxide Anion Gap BUN Creatinine Estimated GFR POC Glucose 145 H 135 H Random Glucose Calcium Prot Corrected Calcium Phosphorus Magnesium Total Bilirubin AST ALT Alkaline Phosphatase Total Protein Albumin 07/02/18 07/03/18 07/03/18 20:48 00:46 04:59 Sodium Potassium Chloride Carbon Dioxide Anion Gap BUN Creatinine Estimated GFR POC Glucose 143 H 142 H 136 H Random Glucose Calcium Prot Corrected Calcium Phosphorus Magnesium Total Bilirubin AST ALT Alkaline Phosphatase Total Protein Albumin 07/03/18 07/03/18 07/03/18 05:00 12:36 16:30 Sodium 145 Potassium 3.6 Chloride 104 Carbon Dioxide 32.1 H Anion Gap 9 BUN 47 H Creatinine 0.87 Estimated GFR 64 L POC Glucose 155 H 103 Random Glucose 143 H Calcium 7.6 L Prot Corrected Calcium Phosphorus 2.6 Magnesium 1.7 Total Bilirubin 1.0 AST 29 ALT 21 Alkaline Phosphatase 93 Total Protein 6.4 Albumin 3.2 L Imaging: ITS Impressions Abdomen/Pelvis CT 06/28/18 00:00 CONCLUSION: 1. Colonic diverticula. 2. Persistent 4.6 cm left adnexal cystic mass. 3. Distended gallbladder. 4. Cortical calcic location seen at the left kidney with some cortical thinning. There are multiple left-sided renal masses likely related to cysts although they're nonspecific on this noncontrast CT examination. Chest CT 06/28/18 00:00 CONCLUSION: 1. Development of moderate bilateral pleural effusions being worse in the right. 2. Areas of consolidation or atelectasis at the posterior lower lungs. Given the effusions is likely represent areas of atelectasis. 3. Consolidation and bronchiectasis in the right upper lung. This was present on the prior exam. It appears to progress. 4. Distended esophagus throughout the chest. Head CT 06/28/18 00:00 CONCLUSION: Negative noncontrast head CT. . Venous Doppler Study 06/29/18 00:00 CONCLUSION: Mild nonocclusive thrombus in the right axillary vein to the brachial vein. Abdomen X-Ray 07/02/18 00:00 CONCLUSION: No dilated bowel loops to suggest ileus. Chest X-Ray 07/03/18 00:00 CONCLUSION: 1. Bilateral perihilar and right lower lobe airspace disease not significant change. 2. Rounded density overlying the left upper lung could be external to patient. Attention to this area on follow-up studies recommended. Physical Exam: GENERAL: awake, alert intubated SKIN: Warm and dry. No rash EYES: Pupils equal and round. No scleral icterus. No injection or drainage. ENT: No nasal bleeding or discharge. Mucous membranes very dry and crusted secretions in oropharynx is present NECK: Trachea midline. No JVD. no edema erythema of the neck CARDIOVASCULAR: Regular rate and rhythm. No murmurs RESPIRATORY: No accessory muscle use. Clear to auscultation. Breath sounds equal bilaterally. GASTROINTESTINAL: Abdomen soft, mildly tender to palpation, + mildly distended. Hepatic and splenic margins not palpable. MUSCULOSKELETAL: Extremities without clubbing, less of edema. No obvious deformities. + non pitting RUE edema trace BLE edemas NEUROLOGICAL: awke, alert, tracks, makes eye contact PSYCHIATRIC: unable to asseess Assessment and Plan - Plan Stage II anal canal carcinoma, undergoing XRT, chemo PSAE sepsis on presentation, source ? PICC vs - thompson S UTI Sepsis' C.diff colitis US RUE showed non occlusive thrombus cont cefepime @ pseudomoanl dosage (q 8hrs) thru 07/11 (14 days from 1st positive clx) cont Flagyl IV cont oral vanco 500 rechk c.diff tonja RN
[2018-07-03] MEDS: SODIUM ACETATE IV.SIG SCH ×9 (21:34)
[2018-07-03] MEDS: [UNRECOGNIZED DRUG - OTHER] IV.SIG SCH ×9 (21:34)
[2018-07-03] MEDS: SODIUM CHLORIDE IV.SIG SCH ×9 (21:34)
[2018-07-04] MEDS: Oral Hygiene Kit OROPHARYNG SCH ×5 (00:39→23:58)
[2018-07-04] MEDS: Insulin NovoLIN Regular Correctional Sugar Inj SQ SCH ×7 (00:39→23:58)
[2018-07-04] MEDS: HYDROmorphone PF Inj 2 MG/ML Vial IV.PUSH PRN ×2 (02:04→06:22)
[2018-07-04] MEDS: Albumin Human 25% Inj 100 ML IV.SIG SCH ×2 (03:57→16:10)
[2018-07-04 04:36] LABS: Baso % (Auto) 0.2 % (0.0-2.0); Eos % (Auto) 0.1 % (0.0-4.0); Hemoglobin 11.1 gm/dL (11.6-15.3); Lymph # (Auto) 0.2 th/mm3 (1.0-4.8); Lymph % (Auto) 1.2 % (9.0-44.0); Mean Corpuscular HGB Conc 32.7 % (32.0-36.0); Mean Corpuscular Hemoglobin 25.9 pg (27.0-34.0); Mean Corpuscular Volume 79.3 fL (80.0-100.0); Mean Platelet Volume 11.4 fL (7.0-11.0); Mono # (Auto) 0.5 th/mm3 (0.0-0.9); Neut # (Auto) 16.2 th/mm3 (1.8-7.7); Neut % (Auto) 95.5 % (16.0-70.0); Platelet Count 109 th/mm3 (150-450); Red Blood Count 4.29 mil/mm3 (4.00-5.30); White Blood Count 16.9 th/mm3 (4.0-11.0)
[2018-07-04 05:03] LABS: Alanine Aminotransferase 20 U/L (10-53); Albumin 3.1 g/dL (3.4-5.0); Alkaline Phosphatase 80 U/L (45-117); Anion Gap 9 meq/L (5-15); Aspartate Aminotransferase 23 U/L (15-37); Blood Urea Nitrogen 39 mg/dL (7-18); Carbon Dioxide 31.5 meq/L (21.0-32.0); Chloride 102 meq/L (98-107); Glomerular Filtration Rate 89 mL/min (>89); Glucose,Random 130 mg/dL (74-106); Magnesium 1.7 mg/dL (1.5-2.5); Phosphorus 3.1 mg/dL (2.5-4.9); Sodium 142 meq/L (136-145); Total Protein 6.4 g/dL (6.4-8.2)
[2018-07-04] MEDS: Levothyroxine 50 MCG Tablet PO SCH (05:18)
[2018-07-04 05:23] LABS: Potassium 2.9 meq/L (3.5-5.1)
[2018-07-04] MEDS: Potassium Chlor 20 mEq Premix 20 MEQ/100 ML PIGGYBACK IV.SIG PRN ×4 (05:30→12:00)
[2018-07-04 06:29] LABS: Monocytes 1 % (0-8); Myelocytes 1 % (0-0)
--- NOTE | 2018-07-04 07:21 | P.PNCC ---
Subjective Subjective Remarks/Hospital Course: 72-year-old female with past medical history of anorectal squamous cell carcinoma, mixed connective tissue disease (SLE, Reynaud's, Polymyositis), remote cervical cancer status post hysterectomy, hypothyroid . She originally developed anal pain and bleeding in January of 2018. She was referred to Dr. Coelho who performed biopsy of anal mass on 04/25/18 which demonstrated invasive squamous cell carcinoma. Outpatient PET reportedly showed no local or distant metastatic disease. She has been undergoing radiation therapy under the care of Dr Concepcion. Concurrent chemotherapy is planned for week 1 and 5 of radiation; and she completed first chemo cycle 06/13/18. She has reportedly been having loose watery stools for several days, difficult to determine exact time of onset. She has also had abdominal pain. When she presented for radiation treatment on 06/25, she was weak and hypotensive so she was sent to the ED. She was pancytopenic with ANC 768. CT abd/pelvis showed fluid filled small bowel c/ w partial SBO or ileus. She was admitted to hospitalist service. Blood cultures were obtained 09/25 which have now resulted + pseudomonas in 09/26 bottles. She was started on cefepime 2 gram IV and vancomycin per hematology. Tmax was 101.2 Rig Builder consult has been requested. She has a RUE PICC placed 06/09 which does not have overt clinical signs of infection, but will be removed. 06/27 Patient is lethargic on Amio drip ( HR now controlled) Afebrile. 06/28 patient lying on bed very lethargic remains on amiodarone infusion. Appears very critical. WBC count is improved to 7.8, platelet count of 35. BUN /creatinine further elevated at 66/1.36. Patient not to be weaker on the right upper and lower extremity-I do not see any history of CVA. Will check CT of the head stat. Patient is not a candidate for TPA due to severe thrombocytopenia, so will not initiate stroke alert. Breathing slightly labored 06/29: Clinically deteriorating very lethargic tachypneic. ABG shows significant hypoxia. Chest x-ray shows worsening bilateral infiltrates/edema. I had discussed with daughters yesterday they wanted to continue full code, patient is encephalopathy again unable to make any decisions at this time. Give additional 20 mg of IV Lasix and continue scheduled 20 mg twice daily. If not improving in the next 45-60 minutes will need endotracheal intubation 06/30: Severely septic lady who is intubated for severe respiratory failure on . Likely has acute lung injury from severe sepsis. FiO2 remains high at 65% to maintain sat above 90%. Chest x-ray is pending at this time WBC count 16 , sodium is 150, BUN 67 creatinine 1.3. Urine output adequate with Lasix 07/01 Patient remains intubated and sedated with Versed drip 3mg/hr, on Amio drip and TPN. s/p 1u PLT pheresis yesterday PLT count 12 this morning. 07/02 Patient is sedated with Versed and intubated. Afebrile, on Amio drip.s/p 1u PLT transfusion yesterday 07/03 No events overnight. Off sedation. Tolerated CPAP x 6 hrs yesterday. Afebrile. 07/04 No events overnight. Remains off sedation more awake. Afebrile. Objective Vital Signs / I&O: Vital Signs 07/03/18 08:00 07/03/18 08:20 07/03/18 09:00 Temperature Pulse Rate 100 H 100 H 99 H Respiratory Rate 26 H 24 24 Blood Pressure 156/87 H 150/76 H Pulse Oximetry 98 98 99 07/03/18 10:00 07/03/18 11:49 07/03/18 12:00 Temperature 98.7 F Pulse Rate 95 H 92 H 95 H Respiratory Rate 24 20 19 Blood Pressure 145/80 H 136/78 Pulse Oximetry 97 98 98 07/03/18 16:00 07/03/18 16:01 07/03/18 19:00 Temperature 98.8 F Pulse Rate 89 94 H 85 Respiratory Rate 21 23 18 Blood Pressure 123/74 133/72 Pulse Oximetry 98 99 98 07/03/18 19:47 07/03/18 20:00 07/03/18 21:00 Temperature 98.2 F Pulse Rate 87 86 85 Respiratory Rate 20 19 16 Blood Pressure 130/74 131/74 Pulse Oximetry 99 99 07/03/18 21:19 07/03/18 22:00 07/03/18 23:00 Temperature Pulse Rate 86 82 Respiratory Rate 16 19 19 Blood Pressure 136/69 133/74 Pulse Oximetry 99 98 98 07/03/18 23:03 07/04/18 00:00 07/04/18 00:07 Temperature 97.4 F L Pulse Rate 86 77 Respiratory Rate 17 14 13 Blood Pressure 125/70 Pulse Oximetry 99 99 07/04/18 01:00 07/04/18 02:00 07/04/18 03:00 Temperature Pulse Rate 80 80 80 Respiratory Rate 18 19 16 Blood Pressure 135/73 133/74 131/72 Pulse Oximetry 99 99 07/04/18 04:00 07/04/18 04:02 07/04/18 05:00 Temperature 97.7 F Pulse Rate 81 81 79 Respiratory Rate 17 20 15 Blood Pressure 131/81 132/71 Pulse Oximetry 97 07/04/18 06:05 Temperature Pulse Rate Respiratory Rate 17 Blood Pressure Pulse Oximetry 99 Intake & Output 07/03/18 07/04/18 07/04/18 18:59 06:59 18:59 Intake Total 280 / 280 4068.0187 / 4068.0187 Output Total 750 / 750 2100 / 2100 Balance -470 / -470 1967.018 / 1967.0187 Weight 54.5 kg Intake: IV 250 / 250 4018.0187 / 4018.0187 D5W Inj 1,000 ML @ 50 mls/hr IV 1000 / 1000 .CONT .Q20H PABLO Rx#:[id number] Versed Inj 50 mg In 50 ml @ 2 50 / 50 MG/HR 2 mls/hr IV.CONT TITRATE PRN Rx#:[id number] Flexbumin 25% Inj 100 ML @ 60 200 / 200 mls/hr IV.SIG Q12H PABLO Rx#: [id number] Maxipime Inj 2,000 MG In NS Inj 100 / 100 200 / 200 100 ML @ 200 mls/hr IV.SIG Q8H PABLO Rx#:[id number] Intralipid 20% Inj 250 ML @ 31. 250 / 250 25 mls/hr IV.SIG Q24H PABLO Rx#: [id number] KCl 20 mEq Premix Inj 20 meq In 100 / 100 100 ml @ 50 mls/hr IV.SIG Q2H PRN Rx#:[id number] Sodium Chloride 23.4% Inj 5.5 2068.0187 / 2068.0187 MEQ Sodium Acetate Inj 59 MEQ KCl Inj 40 MEQ Magnesium Chloride Inj 10 MEQ Calcium Chloride Inj 9 MEQ Sodium Phosphate Inj 40 MEQ MVI-12 Inj 10 ML Folvite Inj 1 MG In Clinimix 5%/D20W Inj 2,000 ML @ 42 mls/hr IV.SIG Q24H PABLO Rx#: [id number] Flagyl 500 MG Inj 100 ML @ 100 100 / 100 200 / 200 mls/hr IV.SIG Q8H PABLO Rx#: [id number] Tube Irrigant 30 / 30 50 / 50 Output: Urine Amount (Catheter) 750 / 750 2099 / 2100 Indwelling Urethral Catheter 750 / 750 2099 / 2099 Other: Date of Last Bowel Movement 07/01/18 07/01/18 # Bowel Movements 4 1 Result Diagrams: 07/04/18 03:30 07/04/18 03:30 Other Results: Laboratory Results - last 12 hr 07/03/18 07/03/18 07/04/18 19:34 23:21 03:30 WBC 16.9 H RBC 4.29 Hgb 11.1 L Hct 34.0 L MCV 79.3 L MCH 25.9 L MCHC 32.7 RDW 20.0 H Plt Count 109 L D MPV 11.4 H Prelim Diff (Auto) Slide review pending Neut % (Auto) 95.5 H Lymph % (Auto) 1.2 L Gosper % (Auto) 3.0 Eos % (Auto) 0.1 Baso % (Auto) 0.2 Neut # (Auto) 16.2 H Lymph # (Auto) 0.2 L Gosper # (Auto) 0.5 Eos # (Auto) 0.0 Baso # (Auto) 0.0 WBC Differential Manual diff final Seg Neuts % (Manual) 81 H Band Neuts % (Manual) 17 H Monocytes % (Manual) 1 Myelocytes % (Man) 1 H Abs Neuts (Manual) 16.7 H Differential Comment . Platelet Estimate Low L Platelet Morphology Enlarged H Keratocytes Occ H Sodium Potassium Chloride Carbon Dioxide Anion Gap BUN Creatinine Estimated GFR POC Glucose 93 103 Random Glucose Calcium Phosphorus Magnesium Total Bilirubin AST ALT Alkaline Phosphatase Total Protein Albumin 07/04/18 07/04/18 03:30 03:33 WBC RBC Hgb Hct MCV MCH MCHC RDW Plt Count MPV Prelim Diff (Auto) Neut % (Auto) Lymph % (Auto) Gosper % (Auto) Eos % (Auto) Baso % (Auto) Neut # (Auto) Lymph # (Auto) Gosper # (Auto) Eos # (Auto) Baso # (Auto) WBC Differential Seg Neuts % (Manual) Band Neuts % (Manual) Monocytes % (Manual) Myelocytes % (Man) Abs Neuts (Manual) Differential Comment Platelet Estimate Platelet Morphology Keratocytes Sodium 142 Potassium 2.9 L* Chloride 102 Carbon Dioxide 31.5 Anion Gap 9 BUN 39 H Creatinine 0.66 Estimated GFR 89 POC Glucose 121 H Random Glucose 130 H Calcium 8.0 L Phosphorus 3.1 Magnesium 1.7 Total Bilirubin 0.8 AST 23 ALT 20 Alkaline Phosphatase 80 Total Protein 6.4 Albumin 3.1 L Imaging: Abdomen/Pelvis CT 06/28/18 00:00 CONCLUSION: 1. Colonic diverticula. 2. Persistent 4.6 cm left adnexal cystic mass. 3. Distended gallbladder. 4. Cortical calcic location seen at the left kidney with some cortical thinning. There are multiple left-sided renal masses likely related to cysts although they're nonspecific on this noncontrast CT examination. Chest CT 06/28/18 00:00 CONCLUSION: 1. Development of moderate bilateral pleural effusions being worse in the right. 2. Areas of consolidation or atelectasis at the posterior lower lungs. Given the effusions is likely represent areas of atelectasis. 3. Consolidation and bronchiectasis in the right upper lung. This was present on the prior exam. It appears to progress. 4. Distended esophagus throughout the chest. Head CT 06/28/18 00:00 CONCLUSION: Negative noncontrast head CT. . Venous Doppler Study 06/29/18 00:00 CONCLUSION: Mild nonocclusive thrombus in the right axillary vein to the brachial vein. Abdomen X-Ray 07/02/18 00:00 CONCLUSION: No dilated bowel loops to suggest ileus. Chest X-Ray 07/03/18 00:00 CONCLUSION: 1. Bilateral perihilar and right lower lobe airspace disease not significant change. 2. Rounded density overlying the left upper lung could be external to patient. Attention to this area on follow-up studies recommended. Objective Remarks: GENERAL: Patient is 72 lying in bed ,Critically ill, intubated sedated SKIN: Warm and dry. HEAD: Normocephalic. EYES: No scleral icterus. No injection or drainage. Anemic ENT: Oral mucosa is dry. Orotracheally intubated NECK: Supple, trachea midline. No JVD or lymphadenopathy. CARDIOVASCULAR: RRR without murmurs, gallops, or rubs. RESPIRATORY: B/l equal air entry GASTROINTESTINAL: Abdomen soft, non-tender, nondistended. MUSCULOSKELETAL: No cyanosis, or edema. Neuro: More awake today Assessment and Plan - Assessment and Plan Plan: NEURO: Acute metabolic encephalopathy secondary to sepsis Dilaudid prn pain. CT head negative for acute findings Monitor neuro status closely Off sedation. RESP: Acute hypoxemic respiratory failure Pulmonary edema Acute lung injury Intubated and placed on mechanical ventilation 06/29/2018 On PRVC RR 12, TV 450, IT:1.0, PEEP:5, FIO2 40% Continue bronchodilators, SBT daily as ike CXR 07/03: Bilateral perihilar and right lower lobe airspace disease not significant change. CV: PAF Currently on IV Lasix 20 mg every 12 Monitor HR and BP maintain MAP>65mmHg GI: C. difficile colitis Ileus Squamous cell carcinoma of the anus Moderate protein energy malnutrition Weaning off TPN and start tube feeds Glucerna 1.5 with goal rate 45ml/hr KUB abdomen 07/02: No dilated bowel loops to suggest ileus. CRS is following- Dr. Coelho FEN/RENAL: GREY Hypernatremia Monitor renal function, I/O's, electrolyte replacement protocol. Will need K replacement today On Lasix 2mg BID, d/c IVF ID: Pseudomonas bacteremia 06/25 Severe sepsis with probable GI source C Diff Continue abx- Vancomycin 500 mg p.o. every 6 hours and IV Flagyl for C. difficile,Cefepime Blood culture growing Pseudomonas 06/25. Removed PICC 06/26. HEME: Squamous cell carcinoma anorectal Pancytopenia SCC anus - s/p chemo completed 06/13. Radiation therapy on hold per Dr. Concepcion. Monitor CBC, coags. Plt and blood product transfusion per heme. s/p PLT transfusion 07/01 PLT count recovering 109 today from 82 ENDO: Hyperglycemia On SSI medium scale with accuchecks for glycemic control On Synthroid 50 mcg daily. TSH:0.98 on 06/27 PROPH: SCD for DVT prophylaxis. On Protonix 40mg Q12 for GI prophylaxis Doppler US RUE 06/29: Mild nonocclusive thrombus in the right axillary vein to the brachial vein ACCESS: Removed right upper extremity PICC 06/26. L IJ CVL placed 06/26 Palliative care following Full code CCT 35 mins excluding procedures
[2018-07-04] MEDS: Chlorhexidine 0.12% Oral Kit 15 ML UDC OROPHARYNG SCH ×2 (08:40→20:40)
[2018-07-04] MEDS: Pantoprazole Inj 40 MG Vial IV.PUSH SCH ×2 (08:40→20:40)
[2018-07-04] MEDS: Sodium Chloride 0.9% 2 ML Flush BID IV.FLUSH SCH ×2 (08:41→20:40)
--- NOTE | 2018-07-04 11:24 | P.PNONC ---
Subjective Interval history: Eyes are open but she is not following any commands Right side is completely flaccid No diarrhea Objective Vital Signs/Intake & Output: Vital Signs 07/03/18 11:49 07/03/18 12:00 07/03/18 16:00 Temperature 98.7 F 98.8 F Pulse Rate 92 H 95 H 89 Respiratory Rate 20 19 21 Blood Pressure 136/78 123/74 Pulse Oximetry 98 98 98 07/03/18 16:01 07/03/18 19:00 07/03/18 19:47 Temperature Pulse Rate 94 H 85 87 Respiratory Rate 23 18 20 Blood Pressure 133/72 Pulse Oximetry 99 98 07/03/18 20:00 07/03/18 21:00 07/03/18 21:19 Temperature 98.2 F Pulse Rate 86 85 Respiratory Rate 19 16 16 Blood Pressure 130/74 131/74 Pulse Oximetry 99 99 99 07/03/18 22:00 07/03/18 23:00 07/03/18 23:03 Temperature Pulse Rate 86 82 86 Respiratory Rate 19 19 17 Blood Pressure 136/69 133/74 Pulse Oximetry 98 98 07/04/18 00:00 07/04/18 00:07 07/04/18 01:00 Temperature 97.4 F L Pulse Rate 77 80 Respiratory Rate 14 13 18 Blood Pressure 125/70 135/73 Pulse Oximetry 99 99 99 07/04/18 02:00 07/04/18 03:00 07/04/18 04:00 Temperature 97.7 F Pulse Rate 80 80 81 Respiratory Rate 19 16 17 Blood Pressure 133/74 131/72 131/81 Pulse Oximetry 99 07/04/18 04:02 07/04/18 05:00 07/04/18 06:00 Temperature Pulse Rate 81 79 80 Respiratory Rate 20 15 18 Blood Pressure 132/71 145/71 H Pulse Oximetry 97 97 07/04/18 06:05 07/04/18 07:00 07/04/18 08:00 Temperature 97.6 F Pulse Rate 73 85 Respiratory Rate 17 17 15 Blood Pressure 141/66 H 173/82 H Pulse Oximetry 99 100 07/04/18 08:54 07/04/18 08:56 07/04/18 09:00 Temperature Pulse Rate 82 83 Respiratory Rate 19 18 19 Blood Pressure 134/70 Pulse Oximetry 100 99 100 07/04/18 09:11 Temperature Pulse Rate 83 Respiratory Rate 17 Blood Pressure Pulse Oximetry Intake & Output 07/03/18 07/04/18 07/04/18 18:59 06:59 18:59 Intake Total 280 / 280 4068.0187 / 4068.0187 Output Total 750 / 750 2099 Balance -470 / -470 1968.018 / 1967.0187 Weight 54.5 kg Intake: IV 250 / 250 4018.0187 / 4018.0187 D5W Inj 1,000 ML @ 50 mls/hr IV 1000 / 1000 .CONT .Q20H FERN Rx#:[id number] Versed Inj 50 mg In 50 ml @ 2 50 / 50 MG/HR 2 mls/hr IV.CONT TITRATE PRN Rx#:[id number] Flexbumin 25% Inj 100 ML @ 60 200 / 200 mls/hr IV.SIG Q12H FERN Rx#: [id number] Maxipime Inj 2,000 MG In NS Inj 100 / 100 200 / 200 100 ML @ 200 mls/hr IV.SIG Q8H FERN Rx#:[id number] Intralipid 20% Inj 250 ML @ 31. 250 / 250 25 mls/hr IV.SIG Q24H FERN Rx#: [id number] KCl 20 mEq Premix Inj 20 meq In 100 / 100 100 ml @ 50 mls/hr IV.SIG Q2H PRN Rx#:[id number] Sodium Chloride 23.4% Inj 5.5 8.0187 / 206.0187 MEQ Sodium Acetate Inj 59 MEQ KCl Inj 40 MEQ Magnesium Chloride Inj 10 MEQ Calcium Chloride Inj 9 MEQ Sodium Phosphate Inj 40 MEQ MVI-12 Inj 10 ML Folvite Inj 1 MG In Clinimix 5%/D20W Inj 2,000 ML @ 42 mls/hr IV.SIG Q24H FERN Rx#: [id number] Flagyl 500 MG Inj 100 ML @ 100 100 / 100 200 / 200 mls/hr IV.SIG Q8H FERN Rx#: [id number] Tube Irrigant 30 / 30 50 / 50 Output: Urine Amount (Catheter) 750 / 750 2099 Indwelling Urethral Catheter 750 / 750 2099 Other: Date of Last Bowel Movement 07/01/18 07/01/18 07/01/18 # Bowel Movements 4 1 Result Diagrams: 07/04/18 03:30 07/04/18 03:30 Laboratory Results: Laboratory Results - last 24 hr 07/03/18 07/03/18 07/03/18 12:36 16:30 19:34 WBC RBC Hgb Hct MCV MCH MCHC RDW Plt Count MPV Prelim Diff (Auto) Neut % (Auto) Lymph % (Auto) [place] % (Auto) Eos % (Auto) Baso % (Auto) Neut # (Auto) Lymph # (Auto) [place] # (Auto) Eos # (Auto) Baso # (Auto) WBC Differential Seg Neuts % (Manual) Band Neuts % (Manual) Monocytes % (Manual) Myelocytes % (Man) Abs Neuts (Manual) Differential Comment Platelet Estimate Platelet Morphology Keratocytes Sodium Potassium Chloride Carbon Dioxide Anion Gap BUN Creatinine Estimated GFR POC Glucose 155 H 103 93 Random Glucose Calcium Phosphorus Magnesium Total Bilirubin AST ALT Alkaline Phosphatase Total Protein Albumin 07/03/18 07/04/18 07/04/18 23:21 03:30 03:30 WBC 16.9 H RBC 4.29 Hgb 11.1 L Hct 34.0 L MCV 79.3 L MCH 25.9 L MCHC 32.7 RDW 20.0 H Plt Count 109 L D MPV 11.4 H Prelim Diff (Auto) Slide review pending Neut % (Auto) 95.5 H Lymph % (Auto) 1.2 L [place] % (Auto) 3.0 Eos % (Auto) 0.1 Baso % (Auto) 0.2 Neut # (Auto) 16.2 H Lymph # (Auto) 0.2 L [place] # (Auto) 0.5 Eos # (Auto) 0.0 Baso # (Auto) 0.0 WBC Differential Manual diff final Seg Neuts % (Manual) 81 H Band Neuts % (Manual) 17 H Monocytes % (Manual) 1 Myelocytes % (Man) 1 H Abs Neuts (Manual) 16.7 H Differential Comment . Platelet Estimate Low L Platelet Morphology Enlarged H Keratocytes Occ H Sodium 142 Potassium 2.9 L* Chloride 102 Carbon Dioxide 31.5 Anion Gap 9 BUN 39 H Creatinine 0.66 Estimated GFR 89 POC Glucose 103 Random Glucose 130 H Calcium 8.0 L Phosphorus 3.1 Magnesium 1.7 Total Bilirubin 0.8 AST 23 ALT 20 Alkaline Phosphatase 80 Total Protein 6.4 Albumin 3.1 L 07/04/18 07/04/18 03:33 08:23 WBC RBC Hgb Hct MCV MCH MCHC RDW Plt Count MPV Prelim Diff (Auto) Neut % (Auto) Lymph % (Auto) [place] % (Auto) Eos % (Auto) Baso % (Auto) Neut # (Auto) Lymph # (Auto) [place] # (Auto) Eos # (Auto) Baso # (Auto) WBC Differential Seg Neuts % (Manual) Band Neuts % (Manual) Monocytes % (Manual) Myelocytes % (Man) Abs Neuts (Manual) Differential Comment Platelet Estimate Platelet Morphology Keratocytes Sodium Potassium Chloride Carbon Dioxide Anion Gap BUN Creatinine Estimated GFR POC Glucose 121 H 82 Random Glucose Calcium Phosphorus Magnesium Total Bilirubin AST ALT Alkaline Phosphatase Total Protein Albumin Culture Results: Microbiology 06/30/18 16:30 Gram Stain - Final Sputum - Endotracheal Sputum Culture - Final No growth in 48 hours 06/27/18 10:50 Aerobic Blood Culture - Final Blood - Peripheral No growth in 5 days Anaerobic Blood Culture - Final No growth in 5 days 06/27/18 10:45 Aerobic Blood Culture - Final Blood - Peripheral No growth in 5 days Anaerobic Blood Culture - Final No growth in 5 days Imaging Studies: Impressions Chest X-Ray 07/03/18 00:00 CONCLUSION: 1. Bilateral perihilar and right lower lobe airspace disease not significant change. 2. Rounded density overlying the left upper lung could be external to patient. Attention to this area on follow-up studies recommended. Medications: Active Medications Generic Name Dose Route Start Last Admin Trade Name Freq PRN Reason Stop Dose Admin Albuterol 1 ampul 06/27/18 12:00 07/04/18 09:10 Duoneb Neb (Fern) NEB 1 ampul Q4HR NEB FERN Administration Chlorhexidine Gluconate 15 ml 06/29/18 20:00 07/04/18 08:40 Peridex 0.12% Oral Kit OROPHARYNG 15 ml BID@0800,2000 FERN Administration Dextrose 50 ml 07/01/18 08:03 07/01/18 21:10 D50w Vial IV.PUSH 50 ml UNSCH PRN Administration PER HYPOGLYCEMIA PROTOCOL Furosemide 20 mg 06/28/18 18:00 07/04/18 09:58 Lasix Inj IV.PUSH 20 mg BID@0900,1800 FERN Administration Hydromorphone HCl 0.5 mg 06/26/18 14:00 07/04/18 06:22 Dilaudid Pf Inj IV.PUSH 0.5 mg Q3H PRN Administration PAIN 3-10 Fat Emulsion Intravenous 250 mls @ 31.25 mls/hr 06/27/18 20:00 07/04/18 05:22 Intralipid 20% Inj IV.SIG Infused Q24H FERN Infusion Potassium Chloride 40 meq in 100 mls @ 25 mls/hr 06/28/18 13:34 07/02/18 18: 59 Kcl 40 Meq Premix Inj IV.SIG Infused Q2H PRN Infusion For Potassium 2.8 - 3.2 mEq/L Potassium Chloride 20 meq in 100 mls @ 50 mls/hr 06/28/18 13:34 07/04/18 09: 59 Kcl 20 Meq Premix Inj IV.SIG 50 mls/hr Q2H PRN Administration For Potassium 3.3 - 3.5 mEq/L Potassium Chloride 20 meq in 100 mls @ 50 mls/hr 06/28/18 13:34 07/04/18 06: 43 Kcl 20 Meq Premix Inj IV.SIG 50 mls/hr Q2H PRN Administration For Potassium 2.8 - 3.2 mEq/L Potassium Phosphate 30 mmol/ 260 mls @ 42 mls/hr 06/28/18 13:34 06/29/18 03: 13 Sodium Chloride IV.SIG Infused UNSCH PRN Infusion SEE LABEL COMMENTS Albumin Human 100 mls @ 60 mls/hr 06/28/18 16:00 07/04/18 06:00 Flexbumin 25% Inj IV.SIG Infused Q12H FERN Infusion Metronidazole/Sodium Chloride 100 mls @ 100 mls/hr 06/28/18 17:00 07/04/18 08 :40 Flagyl 500 Mg Inj IV.SIG 100 mls/hr Q8H FERN Administration Sodium Chloride 5.5 meq/ 2,068.0187 mls @ 42 mls/hr 06/30/18 20:00 07/03/18 21:34 Sodium Acetate 59 meq/ IV.SIG 42 mls/hr Potassium Chloride 40 meq/ Q24H FERN Administration Magnesium Chloride 10 meq/ Calcium Chloride 9 meq/ Sodium Phosphate 40 meq/ Multivitamins 10 ml/ Folic Acid 1 mg/ Amino Acids Cefepime HCl 2,000 mg/ Sodium 100 mls @ 200 mls/hr 07/03/18 18:00 07/04/18 02 :35 Chloride IV.SIG Infused Q8H FERN Infusion Insulin Human Regular 0 units 07/01/18 12:00 07/04/18 08:39 Novolin R Correctional Sugar Inj SQ Not Given Q4HR [facility] Protocol Levothyroxine Sodium 50 mcg 06/26/18 06:00 07/04/18 05:18 Synthroid PO 50 mcg DAILY@0600 FERN Administration Miscellaneous Medication 1 each 06/29/18 16:00 07/04/18 03:57 OROPHARYNG 1 each 0000,0400,1200,1600 FERN Administration Ondansetron HCl 4 mg 06/26/18 04:31 07/04/18 06:13 Zofran Inj IV.PUSH 4 mg Q6H PRN Administration NAUSEA OR VOMITING Pantoprazole Sodium 40 mg 06/25/18 16:00 07/04/18 08:40 Protonix Inj IV.PUSH 40 mg Q12HR FERN Administration Sodium Chloride 2 ml 06/27/18 21:00 07/04/18 08:41 Ns Flush IV.FLUSH 2 ml BID FERN Administration Sodium Chloride 2 ml 06/27/18 10:30 06/28/18 06:02 Ns Flush IV.FLUSH 2 ml PRN PRN Administration FLUSH AFTER USING IV ACCESS Vancomycin HCl 500 mg 06/28/18 16:16 07/04/18 08:40 Vancomycin Po PO 500 mg QID FERN Administration Objective Remarks: GENERAL: Critically ill appearing female patient. Intubated. Eyes open, not tracking. Not following commands or answering questions. SKIN: Pale, warm and dry. HEAD: Normocephalic. EYES: No scleral icterus. No injection or drainage. NECK: Supple, trachea midline. CARDIOVASCULAR: +S1/S2. RESPIRATORY: Breath sounds equal bilaterally. Intubated, . GASTROINTESTINAL: Abdomen soft, nondistended. EXTREMITIES: No cyanosis or edema noted. NEUROLOGICAL: Intubated. Eyes opened and not tracking. Right side completely flaccid Assessment/Plan - Plan Ms. 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 She had received 5 days of chemotherapy, completed on 06/13/2018. She is currently receiving radiation therapy which started on she was admitted for acute renal failure related to dehydration, intractable diarrhea from radiation chemotherapy. Plan: 1. Patient appears to be improving. Remains intubated, currently on CPAP. She tolerated 6 hours yesterday. Her eyes are open and she is tracking. She is still not following commands. 2. Continue antibiotics per infectious disease. 3. Nonocclusive thrombus from previous PICC line. 4. Thrombocytopenia, Platelets have increased to 82,000 today. 5. History of Raynauds syndrome, all fingers and toes are pink and warm to the touch today. 6. Patient has been transitioned from TPN to tube feeds. She no longer has a rectal tube in place. Diarrhea is minimal. Her kidneys appear to be improving. KUB showed no dilated loops to suggest ileus. 7. Repeat CBC in the a.m. 07/04/2018 Patient is not following any commands, eyes are open, patient is off sedation Right side is completely flaccid. I think patient had developed stroke. I will get stat CT of the head for confirmation of the stroke. Discussed with patient's RN If patient has a stroke confirmation then most likely family will take her off of the life support. Palliative care will meet with them today and make a final decision.
--- NOTE | 2018-07-04 11:39 | P.PNPAL ---
Reason for Visit Reason for visit: a. To assist with evaluation and management of symptoms including: pain, dyspnea b. To assist medical decision maker(s) with: better understanding of current medical conditions; weighing benefits/burdens of medical treatment options; making medical treatment decisions. Subjective Subjective/Interval History: Pt seen today to follow up on comfort, goals. [facility]. sedation off, tolerating CPAP for several hrs. Has not been on CPAP today. Eyes open and appears to track though does not follow commands. She is flaccid on right side, which is new from yesterday. Right hand is moderately swollen. Her left ring and middle finger tips are discolored. Nurse reports patient is having moderate bouts of diarrhea. TPN is being decreased, TPN pending mini shifter recommendations for tube feeding. Family states she has a lactose intolerance (experiences GERD and nausea when she has milk) Today's clinical data as follows: * WBC 16.9, hCG 11.1, HCT 34.0 platelets 109, absolute neutrophils 16.2 * Potassium 2.9, BUN 39, blood sugar 130, calcium 8, albumin 3.[address] has been ordered, K+ is being replaced. Family/Friend Interactions: Updated Kristal via phone, reviewed patient's clinical status with her today. Discussed concern over possible strokelike symptoms. We discussed how patient is more alert today though not following commands, coupled with her right-sided hemiplegia it is concerning for stroke. We also discussed her nutritional status and pending dietary consult. She voiced her concern for her mother's evolving symptoms. She plans to visit her mother today and will discuss any pending results at that time. Advance Directives Living Will: Copy in medical record Advance Directives Date on File: 06/30/18 Health Care Surrogate Name and Number: Harper Matt [phone] Maile Moss [phone] Documented care wishes:: The family provided a documented living well. States that she has a terminal condition or end-stage condition or in a persistent vegetative state she does not wish to have life prolonging procedures. She requested that be withheld or withdrawn when the application of such procedures would serve only to prolong artificially the process of dying and that she be permitted to naturally with only the administration of medication or the performance of any medical procedure deemed necessary to provide her. with comfort care or to alleviate pain. She does name her daughters Harper Matt and Maile Moss as her healthcare surrogates, Tisha is primary. Significant change in goals:: No current change in goals. Should her results be indicative of a stroke, the family would like to further discuss escalation of care. They do overall remain hopeful for a full recovery for their mother. Objective Vital Signs: Vital Signs 07/03/18 11:49 07/03/18 12:00 07/03/18 16:00 Temperature 98.7 F 98.8 F Pulse Rate 92 H 95 H 89 Respiratory Rate 20 19 21 Blood Pressure 136/78 123/74 Pulse Oximetry 98 98 98 07/03/18 16:01 07/03/18 19:00 07/03/18 19:47 Temperature Pulse Rate 94 H 85 87 Respiratory Rate 23 18 20 Blood Pressure 133/72 Pulse Oximetry 99 98 07/03/18 20:00 07/03/18 21:00 07/03/18 21:19 Temperature 98.2 F Pulse Rate 86 85 Respiratory Rate 19 16 16 Blood Pressure 130/74 131/74 Pulse Oximetry 99 99 99 07/03/18 22:00 07/03/18 23:00 07/03/18 23:03 Temperature Pulse Rate 86 82 86 Respiratory Rate 19 19 17 Blood Pressure 136/69 133/74 Pulse Oximetry 98 98 07/04/18 00:00 07/04/18 00:07 07/04/18 01:00 Temperature 97.4 F L Pulse Rate 77 80 Respiratory Rate 14 13 18 Blood Pressure 125/70 135/73 Pulse Oximetry 99 99 99 07/04/18 02:00 07/04/18 03:00 07/04/18 04:00 Temperature 97.7 F Pulse Rate 80 80 81 Respiratory Rate 19 16 17 Blood Pressure 133/74 131/72 131/81 Pulse Oximetry 99 07/04/18 04:02 07/04/18 05:00 07/04/18 06:00 Temperature Pulse Rate 81 79 80 Respiratory Rate 20 15 18 Blood Pressure 132/71 145/71 H Pulse Oximetry 97 97 07/04/18 06:05 07/04/18 07:00 07/04/18 08:00 Temperature 97.6 F Pulse Rate 73 85 Respiratory Rate 17 17 15 Blood Pressure 141/66 H 173/82 H Pulse Oximetry 99 100 07/04/18 08:54 07/04/18 08:56 07/04/18 09:00 Temperature Pulse Rate 82 83 Respiratory Rate 19 18 19 Blood Pressure 134/70 Pulse Oximetry 100 99 100 07/04/18 09:11 Temperature Pulse Rate 83 Respiratory Rate 17 Blood Pressure Pulse Oximetry Intake & Output 07/03/18 07/04/18 07/04/18 18:59 06:59 18:59 Intake Total 280 / 280 4068.0187 / 4068.0187 Output Total 750 / 750 2099 Balance -470 / -470 1968.0187 / 1967.0187 Weight 54.5 kg Intake: IV 250 / 250 4018.0187 / 4018.0187 D5W Inj 1,000 ML @ 50 mls/hr IV 1000 / 1000 .CONT .Q20H PABLO Rx#:[id number] Versed Inj 50 mg In 50 ml @ 2 50 / 50 MG/HR 2 mls/hr IV.CONT TITRATE PRN Rx#:[id number] Flexbumin 25% Inj 100 ML @ 60 200 / 200 mls/hr IV.SIG Q12H PABLO Rx#: [id number] Maxipime Inj 2,000 MG In NS Inj 100 / 100 200 / 200 100 ML @ 200 mls/hr IV.SIG Q8H PABLO Rx#:[id number] Intralipid 20% Inj 250 ML @ 31. 250 / 250 25 mls/hr IV.SIG Q24H PABLO Rx#: [id number] KCl 20 mEq Premix Inj 20 meq In 100 / 100 100 ml @ 50 mls/hr IV.SIG Q2H PRN Rx#:[id number] Sodium Chloride 23.4% Inj 5.5 2067.0187 / 018 MEQ Sodium Acetate Inj 59 MEQ KCl Inj 40 MEQ Magnesium Chloride Inj 10 MEQ Calcium Chloride Inj 9 MEQ Sodium Phosphate Inj 40 MEQ MVI-12 Inj 10 ML Folvite Inj 1 MG In Clinimix 5%/D20W Inj 2,000 ML @ 42 mls/hr IV.SIG Q24H PABLO Rx#: [id number] Flagyl 500 MG Inj 100 ML @ 100 100 / 100 200 / 200 mls/hr IV.SIG Q8H PABLO Rx#: [id number] Tube Irrigant 30 / 30 50 / 50 Output: Urine Amount (Catheter) 750 / 750 2099 Indwelling Urethral Catheter 750 / 750 2099 Other: Date of Last Bowel Movement 07/01/18 07/01/18 07/01/18 # Bowel Movements 4 1 Physical Exam: CONSTITUTIONAL/GENERAL: ill appearing female, on mech vent TUBES/LINES/DRAINS: IJ central line, gutierrez catheter, soft restraints BUE SKIN: No jaundice, rashes, or lesions.+Ecchymoses on upper extremities. No wounds seen anteriorly.skin warm/dry EYES: Pupils 3mm, reactive to light opens eyes to voice, does not appears to track. No scleral icterus. No injection or drainage. Fundi not examined. CARDIOVASCULAR:regular rate and rhythm. No JVD. Peripheral pulses symmetric. RESPIRATORY/CHEST: Symmetric,un labored respirations on mech vent currently on PRVC. Clear to auscultation, decreased air movement. Breath sounds equal bilaterally. GASTROINTESTINAL: Abdomen soft, mild distention and slightly tympanic though slightly improved from yesterday. + mild tenderness, becomes tense with palp. No palpable masses. Bowel sounds intermittent /infrequent GENITOURINARY: Without palpable bladder distension. Gutierrez catheter in place. clear yellow urine present. MUSCULOSKELETAL: peripheral pulses palpable. today hands are cold, middle and ring finger on left hand with discolored fingertips. Right hand appears swollen NEUROLOGICAL: eyes open to voice, does not appear to track. No longer on sedation. No following of commands. moves left extremities though not on command , right side flaccid PSYCHIATRIC: No obvious anxiety/depression- limited assess due to clinical condition. Diagnostic Tests Laboratory: Laboratory Results - last 72 hr 07/01/18 07/01/18 07/01/18 09:47 12:07 16:35 WBC RBC Hgb Hct MCV MCH MCHC RDW Plt Count MPV Prelim Diff (Auto) Neut % (Auto) Lymph % (Auto) [place] % (Auto) Eos % (Auto) Baso % (Auto) Neut # (Auto) Lymph # (Auto) [place] # (Auto) Eos # (Auto) Baso # (Auto) WBC Differential Seg Neuts % (Manual) Band Neuts % (Manual) Lymphocytes % (Manual) Monocytes % (Manual) Eosinophils % (Manual) Metamyelocytes % (Man) Myelocytes % (Man) Promyelocytes % (Man) Abs Neuts (Manual) Nucleated RBCs/100 WBC Differential Comment Platelet Estimate Platelet Morphology Ovalocytes Keratocytes Sodium Potassium Chloride Carbon Dioxide Anion Gap BUN Creatinine Estimated GFR POC Glucose 170 H 198 H Random Glucose Calcium Prot Corrected Calcium Phosphorus Magnesium Total Bilirubin AST ALT Alkaline Phosphatase Total Protein Albumin Bld Prod Order Comment 07/01/18 07/01/18 07/02/18 21:00 21:28 00:37 WBC RBC Hgb Hct MCV MCH MCHC RDW Plt Count MPV Prelim Diff (Auto) Neut % (Auto) Lymph % (Auto) [place] % (Auto) Eos % (Auto) Baso % (Auto) Neut # (Auto) Lymph # (Auto) [place] # (Auto) Eos # (Auto) Baso # (Auto) WBC Differential Seg Neuts % (Manual) Band Neuts % (Manual) Lymphocytes % (Manual) Monocytes % (Manual) Eosinophils % (Manual) Metamyelocytes % (Man) Myelocytes % (Man) Promyelocytes % (Man) Abs Neuts (Manual) Nucleated RBCs/100 WBC Differential Comment Platelet Estimate Platelet Morphology Ovalocytes Keratocytes Sodium Potassium Chloride Carbon Dioxide Anion Gap BUN Creatinine Estimated GFR POC Glucose 47 L* 286 H 182 H Random Glucose Calcium Prot Corrected Calcium Phosphorus Magnesium Total Bilirubin AST ALT Alkaline Phosphatase Total Protein Albumin Bld Prod Order Comment 07/02/18 07/02/18 07/02/18 03:48 05:00 05:00 WBC 16.9 H RBC 3.90 L Hgb 10.3 L D Hct 31.4 L MCV 80.4 MCH 26.4 L MCHC 32.8 RDW 19.7 H Plt Count 38 L D MPV 9.8 Prelim Diff (Auto) Manual diff required Neut % (Auto) Lymph % (Auto) [place] % (Auto) Eos % (Auto) Baso % (Auto) Neut # (Auto) Lymph # (Auto) [place] # (Auto) Eos # (Auto) Baso # (Auto) WBC Differential Manual diff final Seg Neuts % (Manual) 64 Band Neuts % (Manual) 18 H Lymphocytes % (Manual) 3 L Monocytes % (Manual) 2 Eosinophils % (Manual) 1 Metamyelocytes % (Man) 5 H Myelocytes % (Man) 5 H Promyelocytes % (Man) 2 H Abs Neuts (Manual) 15.9 H Nucleated RBCs/100 WBC 2 H Differential Comment . Platelet Estimate Low L Platelet Morphology Enlarged H Ovalocytes 1+ H Keratocytes Sodium 149 H Potassium 2.9 L* D Chloride 106 Carbon Dioxide 31.2 Anion Gap 12 BUN 52 H Creatinine 0.99 Estimated GFR 55 L POC Glucose 180 H Random Glucose 140 H Calcium 7.2 L* Prot Corrected Calcium 7.7 L Phosphorus 2.9 Magnesium 1.7 Total Bilirubin 1.1 H AST 25 ALT 22 Alkaline Phosphatase 79 Total Protein 6.2 L Albumin 3.6 D Bld Prod Order Comment 07/02/18 07/02/18 07/02/18 08:51 12:16 17:04 WBC RBC Hgb Hct MCV MCH MCHC RDW Plt Count MPV Prelim Diff (Auto) Neut % (Auto) Lymph % (Auto) [place] % (Auto) Eos % (Auto) Baso % (Auto) Neut # (Auto) Lymph # (Auto) [place] # (Auto) Eos # (Auto) Baso # (Auto) WBC Differential Seg Neuts % (Manual) Band Neuts % (Manual) Lymphocytes % (Manual) Monocytes % (Manual) Eosinophils % (Manual) Metamyelocytes % (Man) Myelocytes % (Man) Promyelocytes % (Man) Abs Neuts (Manual) Nucleated RBCs/100 WBC Differential Comment Platelet Estimate Platelet Morphology Ovalocytes Keratocytes Sodium Potassium Chloride Carbon Dioxide Anion Gap BUN Creatinine Estimated GFR POC Glucose 122 H 145 H 135 H Random Glucose Calcium Prot Corrected Calcium Phosphorus Magnesium Total Bilirubin AST ALT Alkaline Phosphatase Total Protein Albumin Bld Prod Order Comment 07/02/18 07/02/18 07/03/18 18:00 20:48 00:46 WBC RBC Hgb Hct MCV MCH MCHC RDW Plt Count MPV Prelim Diff (Auto) Neut % (Auto) Lymph % (Auto) [place] % (Auto) Eos % (Auto) Baso % (Auto) Neut # (Auto) Lymph # (Auto) [place] # (Auto) Eos # (Auto) Baso # (Auto) WBC Differential Seg Neuts % (Manual) Band Neuts % (Manual) Lymphocytes % (Manual) Monocytes % (Manual) Eosinophils % (Manual) Metamyelocytes % (Man) Myelocytes % (Man) Promyelocytes % (Man) Abs Neuts (Manual) Nucleated RBCs/100 WBC Differential Comment Platelet Estimate Platelet Morphology Ovalocytes Keratocytes Sodium Potassium 4.2 D Chloride Carbon Dioxide Anion Gap BUN Creatinine Estimated GFR POC Glucose 143 H 142 H Random Glucose Calcium Prot Corrected Calcium Phosphorus Magnesium Total Bilirubin AST ALT Alkaline Phosphatase Total Protein Albumin Bld Prod Order Comment 10/08/1007/03/18 07/03/18 04:59 05:00 05:00 WBC 17.5 H RBC 4.38 Hgb 11.5 L Hct 34.9 L MCV 79.8 L MCH 26.2 L MCHC 32.8 RDW 20.0 H Plt Count 82 L D MPV 11.4 H Prelim Diff (Auto) Manual diff required Neut % (Auto) Lymph % (Auto) [place] % (Auto) Eos % (Auto) Baso % (Auto) Neut # (Auto) Lymph # (Auto) [place] # (Auto) Eos # (Auto) Baso # (Auto) WBC Differential Manual diff final Seg Neuts % (Manual) 87 H Band Neuts % (Manual) 4 Lymphocytes % (Manual) 1 L Monocytes % (Manual) 3 Eosinophils % (Manual) Metamyelocytes % (Man) 3 H Myelocytes % (Man) 1 H Promyelocytes % (Man) 1 H Abs Neuts (Manual) 16.8 H Nucleated RBCs/100 WBC Differential Comment . Platelet Estimate Low L Platelet Morphology Enlarged H Ovalocytes 1+ H Keratocytes Sodium 145 Potassium 3.6 Chloride 104 Carbon Dioxide 32.1 H Anion Gap 9 BUN 47 H Creatinine 0.87 Estimated GFR 64 L POC Glucose 136 H Random Glucose 143 H Calcium 7.6 L Prot Corrected Calcium Phosphorus 2.6 Magnesium 1.7 Total Bilirubin 1.0 AST 29 ALT 21 Alkaline Phosphatase 93 Total Protein 6.4 Albumin 3.2 L Bld Prod Order Comment 07/03/18 07/03/18 07/03/18 12:36 16:30 19:34 WBC RBC Hgb Hct MCV MCH MCHC RDW Plt Count MPV Prelim Diff (Auto) Neut % (Auto) Lymph % (Auto) [place] % (Auto) Eos % (Auto) Baso % (Auto) Neut # (Auto) Lymph # (Auto) [place] # (Auto) Eos # (Auto) Baso # (Auto) WBC Differential Seg Neuts % (Manual) Band Neuts % (Manual) Lymphocytes % (Manual) Monocytes % (Manual) Eosinophils % (Manual) Metamyelocytes % (Man) Myelocytes % (Man) Promyelocytes % (Man) Abs Neuts (Manual) Nucleated RBCs/100 WBC Differential Comment Platelet Estimate Platelet Morphology Ovalocytes Keratocytes Sodium Potassium Chloride Carbon Dioxide Anion Gap BUN Creatinine Estimated GFR POC Glucose 155 H 103 93 Random Glucose Calcium Prot Corrected Calcium Phosphorus Magnesium Total Bilirubin AST ALT Alkaline Phosphatase Total Protein Albumin Bld Prod Order Comment 07/03/18 07/04/18 07/04/18 23:21 03:30 03:30 WBC 16.9 H RBC 4.29 Hgb 11.1 L Hct 34.0 L MCV 79.3 L MCH 25.9 L MCHC 32.7 RDW 20.0 H Plt Count 109 L D MPV 11.4 H Prelim Diff (Auto) Slide review pending Neut % (Auto) 95.5 H Lymph % (Auto) 1.2 L [place] % (Auto) 3.0 Eos % (Auto) 0.1 Baso % (Auto) 0.2 Neut # (Auto) 16.2 H Lymph # (Auto) 0.2 L [place] # (Auto) 0.5 Eos # (Auto) 0.0 Baso # (Auto) 0.0 WBC Differential Manual diff final Seg Neuts % (Manual) 81 H Band Neuts % (Manual) 17 H Lymphocytes % (Manual) Monocytes % (Manual) 1 Eosinophils % (Manual) Metamyelocytes % (Man) Myelocytes % (Man) 1 H Promyelocytes % (Man) Abs Neuts (Manual) 16.7 H Nucleated RBCs/100 WBC Differential Comment . Platelet Estimate Low L Platelet Morphology Enlarged H Ovalocytes Keratocytes Occ H Sodium 142 Potassium 2.9 L* Chloride 102 Carbon Dioxide 31.5 Anion Gap 9 BUN 39 H Creatinine 0.66 Estimated GFR 89 POC Glucose 103 Random Glucose 130 H Calcium 8.0 L Prot Corrected Calcium Phosphorus 3.1 Magnesium 1.7 Total Bilirubin 0.8 AST 23 ALT 20 Alkaline Phosphatase 80 Total Protein 6.4 Albumin 3.1 L Bld Prod Order Comment 07/04/18 07/04/18 03:33 08:23 WBC RBC Hgb Hct MCV MCH MCHC RDW Plt Count MPV Prelim Diff (Auto) Neut % (Auto) Lymph % (Auto) [place] % (Auto) Eos % (Auto) Baso % (Auto) Neut # (Auto) Lymph # (Auto) [place] # (Auto) Eos # (Auto) Baso # (Auto) WBC Differential Seg Neuts % (Manual) Band Neuts % (Manual) Lymphocytes % (Manual) Monocytes % (Manual) Eosinophils % (Manual) Metamyelocytes % (Man) Myelocytes % (Man) Promyelocytes % (Man) Abs Neuts (Manual) Nucleated RBCs/100 WBC Differential Comment Platelet Estimate Platelet Morphology Ovalocytes Keratocytes Sodium Potassium Chloride Carbon Dioxide Anion Gap BUN Creatinine Estimated GFR POC Glucose 121 H 82 Random Glucose Calcium Prot Corrected Calcium Phosphorus Magnesium Total Bilirubin AST ALT Alkaline Phosphatase Total Protein Albumin Bld Prod Order Comment Result Diagrams: 07/04/18 03:30 07/04/18 03:30 Microbiology: Microbiology 06/30/18 16:30 Gram Stain - Final Sputum - Endotracheal Sputum Culture - Final No growth in 48 hours 06/27/18 10:50 Aerobic Blood Culture - Final Blood - Peripheral No growth in 5 days Anaerobic Blood Culture - Final No growth in 5 days 06/27/18 10:45 Aerobic Blood Culture - Final Blood - Peripheral No growth in 5 days Anaerobic Blood Culture - Final No growth in 5 days Procedures: 06/26/18 - [facility]J placement 06/29/18 - intubated Assessment and Plan - Disease Oriented Problem List (1) Rectal cancer - Symptom Scale (1) Pain 0-10 Scale: Unable to quantify Comment: intubated, does show some nonverbal pain cues (2) Debility 0-10 Scale: Unable to quantify (3) Dyspnea 0-10 Scale: Unable to quantify Comment: remains intubated though tolerating CPAP Pertinent Non-Medical Issues: Psychosocial: Ms. Barraza is currently though her is living in a senior care with dementia. She is originally from [place] but has been living in [place] for greater than 5 years. She has 2 biological daughters and multiple stepchildren with her . She is described as a very energetic and caring woman. Spiritual:[employer] Legal: The patient is no longer able to participate in her own medical care. Her family has provided a documented living will that names her daughters Harper and Maile as surrogates Ethical issues impacting care: There are no known ethical issues impacting care at this time. Important Contacts: Maile Moss, daughter/HCP [phone] Harper Matt, daughter/HCP [phone] (primary) Prognosis: The patient currently has a poor prognosis. Though her cancer may be treatable she is currently too debilitated to undergo any type of aggressive chemotherapy or radiation therapy. She is at risk for further decline and decompensation due to sepsis, protein calorie malnutrition, etc. She is at risk for further respiratory and cardiac decline, further debility, and . Code Status: Full Code Plan: * LEGAL DECISION MAKER: Patient currently intubated and unable to participate in decision-making. Living will names daughter Madison is primary HCS, other daughter Kristal is secondary. * GOALS: Family wishes to monitor patient in the coming days for improvement versus deterioration. Goals remain aggressive at this time, including full code. They had indicated they might wish to proceed with compassionate withdrawal of life support if patient does not experience significant improvement towards recovery. Given new stroke-like symptoms, family would like to know results of CT before making any other decisions regarding goals of care * CODE STATUS: Full code * SYMPTOMS: Debility - the family and patient state she has had a rapid decline physical ability during this hospital admission. This is multifactorial given her protein calorie malnourishment and sepsis. Weaning TPN and planning to start tube feeding today. Cdiff colitis. CT of head pending in light of new right-sided hemiplegia. If patient has developed a stroke she will need aggressive therapy to see if she can regain any function. Given her frailty, this seems unlikely. Pending dietary recommendations for tube feeding to increase caloric intake. Dyspnea - currently mechanically ventilated. Follow current recommendations from critical care, CPAP trials ongoing. Painpreviously used Percocet without good relief has been switched to Dilaudid since being in the ICU. In light of hypotension due to sepsis has not received. Is currently using barrier cream and Silvadene for topical pain relief after bowel movements. Now on mech vent, light sedation (held for CPAP) . Some grimacing/tachypnea noted, ?pain, May need to revisit opioid use for pain if patient able to maintain BP. * Palliative care will continue to follow during hospital course as condition evolves, to assist patient/decision maker with understanding of medical conditions, weighing benefits/burdens of treatment options, for clarification of goals of treatment. Additionally will assist with any symptoms of palliative concern. Attestation Collaborating MD Comments: concur with above documentation. Dual visit sherice Harris APRN Attestation: To help prompt me to consider important information that might be impacting today's encounter and assessment, information from prior notes written by myself or my colleagues may have been "brought forward" into today's note. My signature on this note, however, is an attestation that I personally performed the exam, history, and/or decision-making noted today, and, unless otherwise indicated, the interactions with patient, family, and staff as well as the review of records all occurred today. I also attest that the listed assessment and stated plan reflect my best clinical judgment today based on the combination of historical information, prior notes, and today's exam/ interactions. When time spent is documented, it refers only to time spent today by the signer, or if indicated, combined time spent today by collaborating physician/nurse practitioner.
--- NOTE | 2018-07-04 15:29 | P.PNID ---
Subjective Remarks: minimal secretions remains on vent, tolerates CPAP severe very liquid diarrhea py seems awake but incoherent Antibiotics: cefepime vanco PO flagyl Past Medical History: anal cancer Allergies/Adverse Reactions: Allergies No Known Allergies Allergy (Verified 06/25/18 12:06) Objective Vital Signs 07/03/18 16:00 07/03/18 16:01 07/03/18 19:00 Temperature 98.8 F Pulse Rate 89 94 H 85 Respiratory Rate 21 23 18 Blood Pressure 123/74 133/72 Pulse Oximetry 98 99 98 07/03/18 19:47 07/03/18 20:00 07/03/18 21:00 Temperature 98.2 F Pulse Rate 87 86 85 Respiratory Rate 20 19 16 Blood Pressure 130/74 131/74 Pulse Oximetry 99 99 07/03/18 21:19 07/03/18 22:00 07/03/18 23:00 Temperature Pulse Rate 86 82 Respiratory Rate 16 19 19 Blood Pressure 136/69 133/74 Pulse Oximetry 99 98 98 07/03/18 23:03 07/04/18 00:00 07/04/18 00:07 Temperature 97.4 F L Pulse Rate 86 77 Respiratory Rate 17 14 13 Blood Pressure 125/70 Pulse Oximetry 99 99 07/04/18 01:00 07/04/18 02:00 07/04/18 03:00 Temperature Pulse Rate 80 80 80 Respiratory Rate 18 19 16 Blood Pressure 135/73 133/74 131/72 Pulse Oximetry 99 99 07/04/18 04:00 07/04/18 04:02 07/04/18 05:00 Temperature 97.7 F Pulse Rate 81 81 79 Respiratory Rate 17 20 15 Blood Pressure 131/81 132/71 Pulse Oximetry 97 07/04/18 06:00 07/04/18 06:05 07/04/18 07:00 Temperature Pulse Rate 80 73 Respiratory Rate 18 17 17 Blood Pressure 145/71 H 141/66 H Pulse Oximetry 97 99 07/04/18 08:00 07/04/18 08:54 07/04/18 08:56 Temperature 97.6 F Pulse Rate 85 82 Respiratory Rate 15 19 18 Blood Pressure 173/82 H 134/70 Pulse Oximetry 100 100 99 07/04/18 09:00 07/04/18 09:11 07/04/18 10:00 Temperature Pulse Rate 83 83 76 Respiratory Rate 19 17 17 Blood Pressure Pulse Oximetry 100 100 07/04/18 11:00 07/04/18 11:56 07/04/18 11:59 Temperature Pulse Rate 83 86 Respiratory Rate 19 20 19 Blood Pressure Pulse Oximetry 100 98 07/04/18 12:00 07/04/18 12:47 07/04/18 13:00 Temperature 97.6 F Pulse Rate 84 86 83 Respiratory Rate 23 20 18 Blood Pressure 135/66 133/64 Pulse Oximetry 98 99 98 Intake & Output 07/03/18 07/04/18 07/04/18 18:59 06:59 18:59 Intake Total 280 / 280 4068.0187 / 4068.0187 300 / 300 Output Total 750 / 750 2100 / 2100 Balance -470 / -470 1967.018 / 1967.0187 300 / 300 Weight 54.5 kg Intake: IV 250 / 250 4018.0187 / 4018.0187 300 / 300 D5W Inj 1,000 ML @ 50 mls/hr IV 1000 / 1000 .CONT .Q20H PABLO Rx#:[id number] Versed Inj 50 mg In 50 ml @ 2 50 / 50 MG/HR 2 mls/hr IV.CONT TITRATE PRN Rx#:[id number] Flexbumin 25% Inj 100 ML @ 60 200 / 200 mls/hr IV.SIG Q12H [facility]LO Rx#: [id number] Maxipime Inj 2,000 MG In NS Inj 100 / 100 200 / 200 100 / 100 100 ML @ 200 mls/hr IV.SIG Q8H PABLO Rx#:[id number] Intralipid 20% Inj 250 ML @ 31. 250 / 250 25 mls/hr IV.SIG Q24H [facility]LO Rx#: [id number] KCl 20 mEq Premix Inj 20 meq In 100 / 100 100 / 100 100 ml @ 50 mls/hr IV.SIG Q2H PRN Rx#:[id number] Sodium Chloride 23.4% Inj 5.5 8.0187 / 2067.0187 MEQ Sodium Acetate Inj 59 MEQ KCl Inj 40 MEQ Magnesium Chloride Inj 10 MEQ Calcium Chloride Inj 9 MEQ Sodium Phosphate Inj 40 MEQ MVI-12 Inj 10 ML Folvite Inj 1 MG In Clinimix 5%/D20W Inj 2,000 ML @ 42 mls/hr IV.SIG Q24H [facility]LO Rx#: [id number] Flagyl 500 MG Inj 100 ML @ 100 100 / 100 200 / 200 100 / 100 mls/hr IV.SIG Q8H [facility] Rx#: [id number] Tube Irrigant 30 / 30 50 / 50 Output: Urine Amount (Catheter) 750 / 750 2099 Indwelling Urethral Catheter 750 / 750 2099 Other: Date of Last Bowel Movement 07/01/18 07/01/18 07/01/18 # Bowel Movements 4 1 06/30/18 16:30 Sputum - Endotracheal Gram Stain - Final 06/30/18 16:30 Sputum - Endotracheal Sputum Culture - Final No growth in 48 hours 06/27/18 10:50 Blood - Peripheral Aerobic Blood Culture - Final No growth in 5 days 06/27/18 10:50 Blood - Peripheral Anaerobic Blood Culture - Final No growth in 5 days 06/27/18 10:45 Blood - Peripheral Aerobic Blood Culture - Final No growth in 5 days 06/27/18 10:45 Blood - Peripheral Anaerobic Blood Culture - Final No growth in 5 days Lab - Hematology Results 07/03/18 07/04/18 05:00 03:30 WBC 17.5 H 16.9 H RBC 4.38 4.29 Hgb 11.5 L 11.1 L Hct 34.9 L 34.0 L MCV 79.8 L 79.3 L MCH 26.2 L 25.9 L MCHC 32.8 32.7 RDW 20.0 H 20.0 H Plt Count 82 L D 109 L D MPV 11.4 H 11.4 H Prelim Diff (Auto) Manual diff required Slide review pending Neut % (Auto) 95.5 H Lymph % (Auto) 1.2 L [place] % (Auto) 3.0 Eos % (Auto) 0.1 Baso % (Auto) 0.2 Neut # (Auto) 16.2 H Lymph # (Auto) 0.2 L [place] # (Auto) 0.5 Eos # (Auto) 0.0 Baso # (Auto) 0.0 WBC Differential Manual diff final Manual diff final Seg Neuts % (Manual) 87 H 81 H Band Neuts % (Manual) 4 17 H Lymphocytes % (Manual) 1 L Monocytes % (Manual) 3 1 Metamyelocytes % (Man) 3 H Myelocytes % (Man) 1 H 1 H Promyelocytes % (Man) 1 H Abs Neuts (Manual) 16.8 H 16.7 H Differential Comment . . Platelet Estimate Low L Low L Platelet Morphology Enlarged H Enlarged H Ovalocytes 1+ H Keratocytes Occ H Lab - Chemistry Results 07/02/18 07/02/18 07/02/18 17:04 18:00 20:48 Sodium Potassium 4.2 D Chloride Carbon Dioxide Anion Gap BUN Creatinine Estimated GFR POC Glucose 135 H 143 H Random Glucose Calcium Phosphorus Magnesium Total Bilirubin AST ALT Alkaline Phosphatase Total Protein Albumin 07/03/18 07/03/18 07/03/18 00:46 04:59 05:00 Sodium 145 Potassium 3.6 Chloride 104 Carbon Dioxide 32.1 H Anion Gap 9 BUN 47 H Creatinine 0.87 Estimated GFR 64 L POC Glucose 142 H 136 H Random Glucose 143 H Calcium 7.6 L Phosphorus 2.6 Magnesium 1.7 Total Bilirubin 1.0 AST 29 ALT 21 Alkaline Phosphatase 93 Total Protein 6.4 Albumin 3.2 L 07/03/18 07/03/18 07/03/18 12:36 16:30 19:34 Sodium Potassium Chloride Carbon Dioxide Anion Gap BUN Creatinine Estimated GFR POC Glucose 155 H 103 93 Random Glucose Calcium Phosphorus Magnesium Total Bilirubin AST ALT Alkaline Phosphatase Total Protein Albumin 07/03/18 07/04/18 07/04/18 23:21 03:30 03:33 Sodium 142 Potassium 2.9 L* Chloride 102 Carbon Dioxide 31.5 Anion Gap 9 BUN 39 H Creatinine 0.66 Estimated GFR 89 POC Glucose 103 121 H Random Glucose 130 H Calcium 8.0 L Phosphorus 3.1 Magnesium 1.7 Total Bilirubin 0.8 AST 23 ALT 20 Alkaline Phosphatase 80 Total Protein 6.4 Albumin 3.1 L 07/04/18 07/04/18 08:23 11:51 Sodium Potassium Chloride Carbon Dioxide Anion Gap BUN Creatinine Estimated GFR POC Glucose 82 73 Random Glucose Calcium Phosphorus Magnesium Total Bilirubin AST ALT Alkaline Phosphatase Total Protein Albumin Imaging: ITS Impressions Abdomen/Pelvis CT 06/28/18 00:00 CONCLUSION: 1. Colonic diverticula. 2. Persistent 4.6 cm left adnexal cystic mass. 3. Distended gallbladder. 4. Cortical calcic location seen at the left kidney with some cortical thinning. There are multiple left-sided renal masses likely related to cysts although they're nonspecific on this noncontrast CT examination. Chest CT 06/28/18 00:00 CONCLUSION: 1. Development of moderate bilateral pleural effusions being worse in the right. 2. Areas of consolidation or atelectasis at the posterior lower lungs. Given the effusions is likely represent areas of atelectasis. 3. Consolidation and bronchiectasis in the right upper lung. This was present on the prior exam. It appears to progress. 4. Distended esophagus throughout the chest. Head CT 06/28/18 00:00 CONCLUSION: Negative noncontrast head CT. . Venous Doppler Study 06/29/18 00:00 CONCLUSION: Mild nonocclusive thrombus in the right axillary vein to the brachial vein. Abdomen X-Ray 07/02/18 00:00 CONCLUSION: No dilated bowel loops to suggest ileus. Chest X-Ray 07/03/18 00:00 CONCLUSION: 1. Bilateral perihilar and right lower lobe airspace disease not significant change. 2. Rounded density overlying the left upper lung could be external to patient. Attention to this area on follow-up studies recommended. Physical Exam: GENERAL: awake, alert intubated SKIN: Warm and dry. No rash EYES: Pupils equal and round. No scleral icterus. No injection or drainage. ENT: No nasal bleeding or discharge. Mucous membranes very dry and crusted secretions in oropharynx is present NECK: Trachea midline. No JVD. no edema erythema of the neck CARDIOVASCULAR: Regular rate and rhythm. No murmurs RESPIRATORY: No accessory muscle use. Clear to auscultation. Breath sounds equal bilaterally. GASTROINTESTINAL: Abdomen soft, mildly tender to palpation, + mildly distended. Hepatic and splenic margins not palpable. MUSCULOSKELETAL: Extremities without clubbing, less of edema. No obvious deformities. + non pitting RUE edema trace BLE edemas NEUROLOGICAL: awke, alert, tracks, makes eye contact, intermittently follows commands, not coherent @ all PSYCHIATRIC: unable to asseess Assessment and Plan - Plan Stage II anal canal carcinoma, undergoing XRT, chemo PSAE sepsis on presentation, source ? PICC vs - thompson S UTI Sepsis' C.diff colitis US RUE showed non occlusive thrombus cont cefepime @ pseudomoanl dosage (q 8hrs) thru 07/11 (14 days from 1st positive clx) cont Flagyl IV cont oral vanco 500 rechk c.diff tonja RN
--- NOTE | 2018-07-04 21:47 | CT ---
EXAM DATE: 07/04/2018 1:10 PM EDT AGE/SEX: 72 years / Female INDICATIONS: Altered mental status. CLINICAL DATA: This is the patient's initial encounter. Patient reports that signs and symptoms have been present for 1 day and indicates a pain score of 4/10. MEDICAL/SURGICAL HISTORY: Gastroesophageal reflux disease. Diverticulitis. Carcinoma, squamous ce ll. Cervical cancer, Rectal cancer, Hypotension, Connective Tissue disease Appendectomy. Hysterect nancy. Lumpectomy RADIATION DOSE: 32.23 CTDI (mGy) COMPARISON: [facility] [place], CT HEAD W/O CONTRAST, 06/28/2018. . TECHNIQUE: CT of the head without contrast. Using automated exposure control and adjustment of the mA and/or kV according to patient size, radiation dose was kept as low as reasonably achievable to ob tain optimal diagnostic quality images. DICOM format image data is available electronically for revi ew and comparison. FINDINGS: There are multiple areas of lucency which have developed in the left frontal anterior parietal lobe a nd periventricular regions not present previously. There is no hemorrhage or mass effect. Possibility of multifocal infarction or even metastatic disease should both be entertained although metastatic d isease is unlikely to have developed in 6 days. CONCLUSION: Interval development of multiple lucencies involving the left frontal and parietal lobes not present on the prior study from 6 days ago most likely multifocal areas of infarction possibly em bolic episode without any hemorrhage or mass effect. Underlying metastatic disease is not excluded an d further characterization with brain MRI with and without contrast is recommended. Findings were dis cussed with the patient's nurse, Nelsy on 07/04/2018 at 21:40 hours at the time of this dictation. Electronically signed by: Denny Leslie MD 07/04/2018 9:46 PM EDT
[2018-07-05] MEDS: [UNRECOGNIZED DRUG - OTHER] IV.SIG SCH ×9 (02:07)
[2018-07-05] MEDS: SODIUM CHLORIDE IV.SIG SCH ×9 (02:07)
[2018-07-05] MEDS: SODIUM ACETATE IV.SIG SCH ×9 (02:07)
[2018-07-05 03:39] LABS: Baso # (Auto) 0.1 th/mm3 (0.0-0.2); Baso % (Auto) 0.3 % (0.0-2.0); Hemoglobin 11.3 gm/dL (11.6-15.3); Lymph # (Auto) 0.1 th/mm3 (1.0-4.8); Lymph % (Auto) 0.9 % (9.0-44.0); Mean Corpuscular HGB Conc 33.2 % (32.0-36.0); Mean Corpuscular Hemoglobin 26.2 pg (27.0-34.0); Mean Corpuscular Volume 78.7 fL (80.0-100.0); Mean Platelet Volume 11.1 fL (7.0-11.0); Mono # (Auto) 0.8 th/mm3 (0.0-0.9); Mono % (Auto) 4.5 % (0.0-8.0); Neut # (Auto) 16.2 th/mm3 (1.8-7.7); Neut % (Auto) 94.3 % (16.0-70.0); Platelet Count 167 th/mm3 (150-450); Red Blood Count 4.32 mil/mm3 (4.00-5.30); White Blood Count 17.2 th/mm3 (4.0-11.0)
[2018-07-05] MEDS: Albumin Human 25% Inj 100 ML IV.SIG SCH ×2 (03:48→16:41)
[2018-07-05] MEDS: Oral Hygiene Kit OROPHARYNG SCH ×3 (03:48→16:42)
[2018-07-05] MEDS: Insulin NovoLIN Regular Correctional Sugar Inj SQ SCH ×5 (03:48→21:00)
[2018-07-05 04:04] LABS: Alanine Aminotransferase 24 U/L (10-53); Albumin 3.5 g/dL (3.4-5.0); Anion Gap 7 meq/L (5-15); Aspartate Aminotransferase 32 U/L (15-37); Blood Urea Nitrogen 37 mg/dL (7-18); Calcium 8.1 mg/dL (8.5-10.1); Carbon Dioxide 30.8 meq/L (21.0-32.0); Chloride 103 meq/L (98-107); Glomerular Filtration Rate Greater Than 89 mL/min (>89); Glucose,Random 106 mg/dL (74-106); Magnesium 1.8 mg/dL (1.5-2.5); Phosphorus 2.9 mg/dL (2.5-4.9); Potassium 3.2 meq/L (3.5-5.1); Sodium 141 meq/L (136-145)
[2018-07-05 04:05] LABS: Acanthocytes 1+; Lymphocytes 1 % (9-44); Metamyelocytes 1 % (0-1); Monocytes 3 % (0-8); Ovalocytes 1+
[2018-07-05 04:06] LABS: Alkaline Phosphatase 78 U/L (45-117); Platelet Estimate Normal (Normal); Platelet Morphology Normal (Normal); Total Protein 6.8 g/dL (6.4-8.2)
[2018-07-05] MEDS: Potassium Chlor 40 mEq Premix 40 MEQ/100 ML PIGGYBACK IV.SIG PRN (04:36)
[2018-07-05] MEDS: Levothyroxine 50 MCG Tablet PO SCH (05:34)
[2018-07-05] MEDS: Sodium Chloride 0.9% 2 ML Flush BID IV.FLUSH SCH ×2 (08:14→21:25)
[2018-07-05] MEDS: Chlorhexidine 0.12% Oral Kit 15 ML UDC OROPHARYNG SCH ×2 (08:14→21:01)
[2018-07-05] MEDS: Pantoprazole Inj 40 MG Vial IV.PUSH SCH ×2 (08:14→21:23)
[2018-07-05] MEDS: Potassium Chlor 20 mEq Premix 20 MEQ/100 ML PIGGYBACK IV.SIG PRN ×2 (08:28→11:33)
--- NOTE | 2018-07-05 08:34 | P.PNCC ---
Subjective Subjective Remarks/Hospital Course: 72-year-old female with past medical history of anorectal squamous cell carcinoma, mixed connective tissue disease (SLE, Reynaud's, Polymyositis), remote cervical cancer status post hysterectomy, hypothyroid . She originally developed anal pain and bleeding in January of 2018. She was referred to Dr. Coelho who performed biopsy of anal mass on 04/25/18 which demonstrated invasive squamous cell carcinoma. Outpatient PET reportedly showed no local or distant metastatic disease. She has been undergoing radiation therapy under the care of Dr Concepcion. Concurrent chemotherapy is planned for week 1 and 5 of radiation; and she completed first chemo cycle 06/13/18. She has reportedly been having loose watery stools for several days, difficult to determine exact time of onset. She has also had abdominal pain. When she presented for radiation treatment on 06/25, she was weak and hypotensive so she was sent to the ED. She was pancytopenic with ANC 768. CT abd/pelvis showed fluid filled small bowel c/ w partial SBO or ileus. She was admitted to hospitalist service. Blood cultures were obtained 09/25 which have now resulted + pseudomonas in 09/26 bottles. She was started on cefepime 2 gram IV and vancomycin per hematology. Tmax was 101.2 Punch Operator consult has been requested. She has a RUE PICC placed 06/09 which does not have overt clinical signs of infection, but will be removed. 06/27 Patient is lethargic on Amio drip ( HR now controlled) Afebrile. 06/28 patient lying on bed very lethargic remains on amiodarone infusion. Appears very critical. WBC count is improved to 7.8, platelet count of 35. BUN /creatinine further elevated at 66/1.36. Patient not to be weaker on the right upper and lower extremity-I do not see any history of CVA. Will check CT of the head stat. Patient is not a candidate for TPA due to severe thrombocytopenia, so will not initiate stroke alert. Breathing slightly labored 06/29: Clinically deteriorating very lethargic tachypneic. ABG shows significant hypoxia. Chest x-ray shows worsening bilateral infiltrates/edema. I had discussed with daughters yesterday they wanted to continue full code, patient is encephalopathy again unable to make any decisions at this time. Give additional 20 mg of IV Lasix and continue scheduled 20 mg twice daily. If not improving in the next 45-60 minutes will need endotracheal intubation 06/30: Severely septic lady who is intubated for severe respiratory failure on . Likely has acute lung injury from severe sepsis. FiO2 remains high at 65% to maintain sat above 90%. Chest x-ray is pending at this time WBC count 16 , sodium is 150, BUN 67 creatinine 1.3. Urine output adequate with Lasix 07/01 Patient remains intubated and sedated with Versed drip 3mg/hr, on Amio drip and TPN. s/p 1u PLT pheresis yesterday PLT count 12 this morning. 07/02 Patient is sedated with Versed and intubated. Afebrile, on Amio drip.s/p 1u PLT transfusion yesterday 07/03 No events overnight. Off sedation. Tolerated CPAP x 6 hrs yesterday. Afebrile. 07/04 No events overnight. Remains off sedation more awake. Afebrile. 07/05 Patient remains intubated tolerated CPAP all day yesterday. Not moving right side. CT brain yesterday interval development of multiple lucencies involving the left frontal and parietal lobes not present on the prior study from 6 days ago most likely multifocal areas of infarction possibly embolic episode without any hemorrhage or mass effect. Underlying metastatic disease is not excluded. Objective Vital Signs / I&O: Vital Signs 07/04/18 08:54 07/04/18 08:56 07/04/18 09:00 Temperature Pulse Rate 82 83 Respiratory Rate 19 18 19 Blood Pressure 134/70 Pulse Oximetry 100 99 100 07/04/18 09:11 07/04/18 10:00 07/04/18 11:00 Temperature Pulse Rate 83 76 83 Respiratory Rate 17 17 19 Blood Pressure Pulse Oximetry 100 100 07/04/18 11:56 07/04/18 11:59 07/04/18 12:00 Temperature 97.6 F Pulse Rate 86 84 Respiratory Rate 20 19 23 Blood Pressure Pulse Oximetry 98 98 07/04/18 12:47 07/04/18 13:00 07/04/18 13:32 Temperature Pulse Rate 86 83 83 Respiratory Rate 20 18 Blood Pressure 135/66 133/64 137/76 Pulse Oximetry 99 98 97 07/04/18 14:00 07/04/18 14:01 07/04/18 15:00 Temperature Pulse Rate 89 91 H 88 Respiratory Rate 17 20 19 Blood Pressure 149/72 H Pulse Oximetry 07/04/18 15:01 07/04/18 16:00 07/04/18 16:51 Temperature 97.7 F Pulse Rate 90 83 Respiratory Rate 27 H 16 16 Blood Pressure 175/72 H 133/73 Pulse Oximetry 98 07/04/18 16:57 07/04/18 17:00 07/04/18 18:00 Temperature Pulse Rate 83 85 81 Respiratory Rate 17 19 18 Blood Pressure 146/73 H 131/70 Pulse Oximetry 100 100 07/04/18 19:00 07/04/18 19:50 07/04/18 19:54 Temperature Pulse Rate 84 85 Respiratory Rate 19 17 17 Blood Pressure 133/72 Pulse Oximetry 99 99 07/04/18 20:00 07/04/18 21:00 07/04/18 21:22 Temperature 98.6 F Pulse Rate 84 88 86 Respiratory Rate 16 16 23 Blood Pressure 130/71 135/74 140/78 Pulse Oximetry 98 100 07/04/18 21:41 07/04/18 22:00 07/04/18 23:00 Temperature Pulse Rate 91 H 90 81 Respiratory Rate 19 15 18 Blood Pressure 144/71 H 140/76 147/75 H Pulse Oximetry 99 99 100 07/04/18 23:28 07/05/18 00:00 07/05/18 00:34 Temperature 98 F Pulse Rate 89 85 Respiratory Rate 16 16 16 Blood Pressure 149/79 H Pulse Oximetry 100 100 07/05/18 01:00 07/05/18 02:00 07/05/18 03:00 Temperature Pulse Rate 87 86 80 Respiratory Rate 14 16 15 Blood Pressure 138/76 142/82 H 125/68 Pulse Oximetry 100 100 98 07/05/18 03:15 07/05/18 03:59 07/05/18 04:00 Temperature 98.2 F Pulse Rate 88 91 H Respiratory Rate 15 15 16 Blood Pressure 143/73 H Pulse Oximetry 99 100 07/05/18 07:21 Temperature Pulse Rate 87 Respiratory Rate 14 Blood Pressure Pulse Oximetry 98 Intake & Output 07/04/18 07/05/18 07/05/18 18:59 06:59 18:59 Intake Total 700 / 700 2468.0187 / 2468.0187 Output Total 1500 / 1500 1350 / 1350 Balance -800 / -800 1118.0187 / 1118.0187 Weight 55 kg Intake: IV 700 / 700 2468.0187 / 2468.0187 Flexbumin 25% Inj 100 ML @ 60 100 / 100 100 / 100 mls/hr IV.SIG Q12H [facility] Rx#: [id number] Maxipime Inj 2,000 MG In NS Inj 100 / 100 200 / 200 100 ML @ 200 mls/hr IV.SIG Q8H [facility] Rx#:[id number] KCl 20 mEq Premix Inj 20 meq In 300 / 300 100 ml @ 50 mls/hr IV.SIG Q2H PRN Rx#:[id number] Sodium Chloride 23.4% Inj 5.5 2068.0187 / 8.0187 MEQ Sodium Acetate Inj 59 MEQ KCl Inj 40 MEQ Magnesium Chloride Inj 10 MEQ Calcium Chloride Inj 9 MEQ Sodium Phosphate Inj 40 MEQ MVI-12 Inj 10 ML Folvite Inj 1 MG In Clinimix 5%/D20W Inj 2,000 ML @ 42 mls/hr IV.SIG Q24H [facility] [place] Rx#: [id number] Flagyl 500 MG Inj 100 ML @ 100 200 / 200 100 / 100 mls/hr IV.SIG Q8H [facility]LO Rx#: [id number] Output: Urine Amount (Catheter) 1500 / 1500 1350 / 1350 Indwelling Urethral Catheter 1500 / 1500 1350 / 1350 Other: Date of Last Bowel Movement 07/01/18 07/01/18 # Bowel Movements 8 0 Result Diagrams: 07/05/18 03:25 07/05/18 03:25 Other Results: Laboratory Results - last 12 hr 07/04/18 07/04/18 07/04/18 18:30 20:31 23:52 WBC RBC Hgb Hct MCV MCH MCHC RDW Plt Count MPV Prelim Diff (Auto) Neut % (Auto) Lymph % (Auto) [place] % (Auto) Eos % (Auto) Baso % (Auto) Neut # (Auto) Lymph # (Auto) [place] # (Auto) Eos # (Auto) Baso # (Auto) WBC Differential Seg Neuts % (Manual) Band Neuts % (Manual) Lymphocytes % (Manual) Monocytes % (Manual) Metamyelocytes % (Man) Abs Neuts (Manual) Differential Comment Platelet Estimate Platelet Morphology Ovalocytes Acanthocytes (Spur) Sodium Potassium Chloride Carbon Dioxide Anion Gap BUN Creatinine Estimated GFR POC Glucose 81 87 Random Glucose Calcium Phosphorus Magnesium Total Bilirubin AST ALT Alkaline Phosphatase Total Protein Albumin Stl C.difficile DNA Amp Negative St C. diff Tox Epid 027 Negative 07/05/18 07/05/18 07/05/18 01:06 03:25 03:25 WBC 17.2 H RBC 4.32 Hgb 11.3 L Hct 34.0 L MCV 78.7 L MCH 26.2 L MCHC 33.2 RDW 20.0 H Plt Count 167 D MPV 11.1 H Prelim Diff (Auto) Slide review pending Neut % (Auto) 94.3 H Lymph % (Auto) 0.9 L [place] % (Auto) 4.5 Eos % (Auto) 0.0 Baso % (Auto) 0.3 Neut # (Auto) 16.2 H Lymph # (Auto) 0.1 L [place] # (Auto) 0.8 Eos # (Auto) 0.0 Baso # (Auto) 0.1 WBC Differential Manual diff final Seg Neuts % (Manual) 77 H Band Neuts % (Manual) 18 H Lymphocytes % (Manual) 1 L Monocytes % (Manual) 3 Metamyelocytes % (Man) 1 Abs Neuts (Manual) 16.5 H Differential Comment . Platelet Estimate Normal Platelet Morphology Normal Ovalocytes 1+ H Acanthocytes (Spur) 1+ H Sodium 141 Potassium 3.2 L Chloride 103 Carbon Dioxide 30.8 Anion Gap 7 BUN 37 H Creatinine 0.62 Estimated GFR Greater than 89 POC Glucose 73 Random Glucose 106 Calcium 8.1 L Phosphorus 2.9 Magnesium 1.8 Total Bilirubin 1.0 AST 32 ALT 24 Alkaline Phosphatase 78 Total Protein 6.8 Albumin 3.5 Stl C.difficile DNA Amp St C. diff Tox Epid 027 07/05/18 07/05/18 03:47 08:11 WBC RBC Hgb Hct MCV MCH MCHC RDW Plt Count MPV Prelim Diff (Auto) Neut % (Auto) Lymph % (Auto) [place] % (Auto) Eos % (Auto) Baso % (Auto) Neut # (Auto) Lymph # (Auto) [place] # (Auto) Eos # (Auto) Baso # (Auto) WBC Differential Seg Neuts % (Manual) Band Neuts % (Manual) Lymphocytes % (Manual) Monocytes % (Manual) Metamyelocytes % (Man) Abs Neuts (Manual) Differential Comment Platelet Estimate Platelet Morphology Ovalocytes Acanthocytes (Spur) Sodium Potassium Chloride Carbon Dioxide Anion Gap BUN Creatinine Estimated GFR POC Glucose 111 H 99 Random Glucose Calcium Phosphorus Magnesium Total Bilirubin AST ALT Alkaline Phosphatase Total Protein Albumin Stl C.difficile DNA Amp St C. diff Tox Epid 027 Imaging: Abdomen/Pelvis CT 06/28/18 00:00 CONCLUSION: 1. Colonic diverticula. 2. Persistent 4.6 cm left adnexal cystic mass. 3. Distended gallbladder. 4. Cortical calcic location seen at the left kidney with some cortical thinning. There are multiple left-sided renal masses likely related to cysts although they're nonspecific on this noncontrast CT examination. Chest CT 06/28/18 00:00 CONCLUSION: 1. Development of moderate bilateral pleural effusions being worse in the right. 2. Areas of consolidation or atelectasis at the posterior lower lungs. Given the effusions is likely represent areas of atelectasis. 3. Consolidation and bronchiectasis in the right upper lung. This was present on the prior exam. It appears to progress. 4. Distended esophagus throughout the chest. Venous Doppler Study 06/29/18 00:00 CONCLUSION: Mild nonocclusive thrombus in the right axillary vein to the brachial vein. Abdomen X-Ray 07/02/18 00:00 CONCLUSION: No dilated bowel loops to suggest ileus. Chest X-Ray 07/03/18 00:00 CONCLUSION: 1. Bilateral perihilar and right lower lobe airspace disease not significant change. 2. Rounded density overlying the left upper lung could be external to patient. Attention to this area on follow-up studies recommended. Head CT 07/04/18 00:00 CONCLUSION: Interval development of multiple lucencies involving the left frontal and parietal lobes not present on the prior study from 6 days ago most likely multifocal areas of infarction possibly embolic episode without any hemorrhage or mass effect. Underlying metastatic disease is not excluded and further characterization with brain MRI with and without contrast is recommended. Findings were discussed with the patient's nurseNelsy on 2017 at 21:40 hours at the time of this dictation. Objective Remarks: GENERAL: Patient is 72 lying in bed ,Critically ill, intubated sedated SKIN: Warm and dry. HEAD: Normocephalic. EYES: No scleral icterus. No injection or drainage. Anemic ENT: Oral mucosa is dry. Orotracheally intubated NECK: Supple, trachea midline. No JVD or lymphadenopathy. CARDIOVASCULAR: RRR without murmurs, gallops, or rubs. RESPIRATORY: B/l equal air entry GASTROINTESTINAL: Abdomen soft, non-tender, nondistended. MUSCULOSKELETAL: No cyanosis, or edema. Neuro: Awake , right side flaccid. Assessment and Plan - Assessment and Plan Plan: NEURO: Acute metabolic encephalopathy MRI brain 07/05: Multifocal infarcts as noted above. Given the multiplicity and bilaterality this suggests possible embolic infarcts versus vasculitis MRA brain:Decreased caliber of the left M2 segment of the MCA corresponding with the areas of hypoattenuation on comparison CT. Findings are concerning for multifocal acute infarct. MRA neck: Negative Repeat CT brain 07/04: Interval development of multiple lucencies involving the left frontal and parietal lobes not present on the prior study from 6 days ago most likely multifocal areas of infarction possibly embolic episode without any hemorrhage or mass effect. 06/28 CT head negative for acute findings Monitor neuro status. Consult neurology, RESP: Acute hypoxemic respiratory failure Pulmonary edema Acute lung injury Intubated and placed on mechanical ventilation 06/29/2018 On PRVC RR 12, TV 450, IT:1.0, PEEP:5, FIO2 40% Continue bronchodilators, SBT daily as ike CXR 07/03: Bilateral perihilar and right lower lobe airspace disease not significant change. CV: PAF Currently on IV Lasix 20 mg every 12 Monitor HR and BP maintain MAP>65mmHg Check 2D echo GI: C. difficile colitis Ileus Squamous cell carcinoma of the anus Moderate protein energy malnutrition Weaning off TPN and start tube feeds Jevity 1.5 with goal rate 55ml/hr per nut. recommendations. KUB abdomen 07/02: No dilated bowel loops to suggest ileus. CRS is following- Dr. Coelho FEN/RENAL: GREY Hypokalemia Monitor renal function, I/O's, electrolyte replacement protocol. Will need K replacement today On Lasix 20mg BID, ID: Pseudomonas bacteremia 06/25 Severe sepsis with probable GI source C Diff Continue abx- Vancomycin 500 mg p.o. every 6 hours and IV Flagyl for C. difficile,Cefepime Blood culture growing Pseudomonas 06/25. Repeat C-diff PCR negative on 07/04 Removed PICC 06/26. HEME: Squamous cell carcinoma anorectal Pancytopenia SCC anus - s/p chemo completed 06/13. Radiation therapy on hold per Dr. Concepcion. Monitor CBC, coags. Plt and blood product transfusion per heme. s/p PLT transfusion 07/01 PLT count recovering 167 today from 109 ENDO: Hyperglycemia On SSI medium scale with accuchecks for glycemic control On Synthroid 50 mcg daily. TSH:0.98 on 06/27 PROPH: SCD for DVT prophylaxis. On Protonix 40mg Q12 for GI prophylaxis Doppler US RUE 06/29: Mild nonocclusive thrombus in the right axillary vein to the brachial vein ACCESS: Removed right upper extremity PICC 06/26. L IJ CVL placed 06/26 Palliative care following Full code CCT 35 mins excluding procedures
--- NOTE | 2018-07-05 09:09 | P.PNONC ---
Subjective Interval history: Patient awake, tracking with eyes. Remains intubated, currently on CPAP. Does not respond to questions. Moving left side only, not to command. Objective Vital Signs/Intake & Output: Vital Signs 07/04/18 09:00 07/04/18 09:11 07/04/18 10:00 Temperature Pulse Rate 83 83 76 Respiratory Rate 19 17 17 Blood Pressure Pulse Oximetry 100 100 07/04/18 11:00 07/04/18 11:56 07/04/18 11:59 Temperature Pulse Rate 83 86 Respiratory Rate 19 20 19 Blood Pressure Pulse Oximetry 100 98 07/04/18 12:00 07/04/18 12:47 07/04/18 13:00 Temperature 97.6 F Pulse Rate 84 86 83 Respiratory Rate 23 20 18 Blood Pressure 135/66 133/64 Pulse Oximetry 98 99 98 07/04/18 13:32 07/04/18 14:00 07/04/18 14:01 Temperature Pulse Rate 83 89 91 H Respiratory Rate 17 20 Blood Pressure 137/76 149/72 H Pulse Oximetry 97 07/04/18 15:00 07/04/18 15:01 07/04/18 16:00 Temperature 97.7 F Pulse Rate 88 90 83 Respiratory Rate 19 27 H 16 Blood Pressure 175/72 H 133/73 Pulse Oximetry 07/04/18 16:51 07/04/18 16:57 07/04/18 17:00 Temperature Pulse Rate 83 85 Respiratory Rate 16 17 19 Blood Pressure 146/73 H Pulse Oximetry 98 100 07/04/18 18:00 07/04/18 19:00 07/04/18 19:50 Temperature Pulse Rate 81 84 Respiratory Rate 18 19 17 Blood Pressure 131/70 133/72 Pulse Oximetry 100 99 99 07/04/18 19:54 07/04/18 20:00 07/04/18 21:00 Temperature 98.6 F Pulse Rate 85 84 88 Respiratory Rate 17 16 16 Blood Pressure 130/71 135/74 Pulse Oximetry 98 07/04/18 21:22 07/04/18 21:41 07/04/18 22:00 Temperature Pulse Rate 86 91 H 90 Respiratory Rate 23 19 15 Blood Pressure 140/78 144/71 H 140/76 Pulse Oximetry 100 99 99 07/04/18 23:00 07/04/18 23:28 07/05/18 00:00 Temperature 98 F Pulse Rate 81 89 85 Respiratory Rate 18 16 16 Blood Pressure 147/75 H 149/79 H Pulse Oximetry 100 100 07/05/18 00:34 07/05/18 01:00 07/05/18 02:00 Temperature Pulse Rate 87 86 Respiratory Rate 16 14 16 Blood Pressure 138/76 142/82 H Pulse Oximetry 100 100 100 07/05/18 03:00 07/05/18 03:15 07/05/18 03:59 Temperature Pulse Rate 80 88 Respiratory Rate 15 15 15 Blood Pressure 125/68 Pulse Oximetry 98 99 07/05/18 04:00 07/05/18 07:21 Temperature 98.2 F Pulse Rate 91 H 87 Respiratory Rate 16 14 Blood Pressure 143/73 H Pulse Oximetry 100 98 Intake & Output 07/04/18 07/05/18 07/05/18 18:59 06:59 18:59 Intake Total 700 / 700 2468.0187 / 2468.0187 Output Total 1500 / 1500 1350 / 1350 Balance -800 / -800 1118.0187 / 1118.0187 Weight 55 kg Intake: IV 700 / 700 2468.0187 / 2468.0187 Flexbumin 25% Inj 100 ML @ 60 100 / 100 100 / 100 mls/hr IV.SIG Q12H PABLO Rx#: [id number] Maxipime Inj 2,000 MG In NS Inj 100 / 100 200 / 200 100 ML @ 200 mls/hr IV.SIG Q8H PABLO Rx#:[id number] KCl 20 mEq Premix Inj 20 meq In 300 / 300 100 ml @ 50 mls/hr IV.SIG Q2H PRN Rx#:[id number] Sodium Chloride 23.4% Inj 5.5 2068.0187 / 2068.0187 MEQ Sodium Acetate Inj 59 MEQ KCl Inj 40 MEQ Magnesium Chloride Inj 10 MEQ Calcium Chloride Inj 9 MEQ Sodium Phosphate Inj 40 MEQ MVI-12 Inj 10 ML Folvite Inj 1 MG In Clinimix 5%/D20W Inj 2,000 ML @ 42 mls/hr IV.SIG Q24H PABLO Rx#: [id number] Flagyl 500 MG Inj 100 ML @ 100 200 / 200 100 / 100 mls/hr IV.SIG Q8H PABLO Rx#: [id number] Output: Urine Amount (Catheter) 1500 / 1500 1350 / 1350 Indwelling Urethral Catheter 1500 / 1500 1350 / 1350 Other: Date of Last Bowel Movement 07/01/18 07/01/18 # Bowel Movements 8 0 Result Diagrams: 07/05/18 03:25 07/05/18 03:25 Laboratory Results: Laboratory Results - last 24 hr 07/04/18 07/04/18 07/04/18 11:51 16:23 18:15 WBC RBC Hgb Hct MCV MCH MCHC RDW Plt Count MPV Prelim Diff (Auto) Neut % (Auto) Lymph % (Auto) Rice % (Auto) Eos % (Auto) Baso % (Auto) Neut # (Auto) Lymph # (Auto) Rice # (Auto) Eos # (Auto) Baso # (Auto) WBC Differential Seg Neuts % (Manual) Band Neuts % (Manual) Lymphocytes % (Manual) Monocytes % (Manual) Metamyelocytes % (Man) Abs Neuts (Manual) Differential Comment Platelet Estimate Platelet Morphology Ovalocytes Acanthocytes (Spur) Sodium Potassium 3.7 D Chloride Carbon Dioxide Anion Gap BUN Creatinine Estimated GFR POC Glucose 73 102 Random Glucose Calcium Phosphorus Magnesium Total Bilirubin AST ALT Alkaline Phosphatase Total Protein Albumin Stl C.difficile DNA Amp St C. diff Tox Epid 027 07/04/18 07/04/18 07/04/18 18:30 20:31 23:52 WBC RBC Hgb Hct MCV MCH MCHC RDW Plt Count MPV Prelim Diff (Auto) Neut % (Auto) Lymph % (Auto) Rice % (Auto) Eos % (Auto) Baso % (Auto) Neut # (Auto) Lymph # (Auto) Rice # (Auto) Eos # (Auto) Baso # (Auto) WBC Differential Seg Neuts % (Manual) Band Neuts % (Manual) Lymphocytes % (Manual) Monocytes % (Manual) Metamyelocytes % (Man) Abs Neuts (Manual) Differential Comment Platelet Estimate Platelet Morphology Ovalocytes Acanthocytes (Spur) Sodium Potassium Chloride Carbon Dioxide Anion Gap BUN Creatinine Estimated GFR POC Glucose 81 87 Random Glucose Calcium Phosphorus Magnesium Total Bilirubin AST ALT Alkaline Phosphatase Total Protein Albumin Stl C.difficile DNA Amp Negative St C. diff Tox Epid 027 Negative 07/05/18 07/05/18 07/05/18 01:06 03:25 03:25 WBC 17.2 H RBC 4.32 Hgb 11.3 L Hct 34.0 L MCV 78.7 L MCH 26.2 L MCHC 33.2 RDW 20.0 H Plt Count 167 D MPV 11.1 H Prelim Diff (Auto) Slide review pending Neut % (Auto) 94.3 H Lymph % (Auto) 0.9 L Rice % (Auto) 4.5 Eos % (Auto) 0.0 Baso % (Auto) 0.3 Neut # (Auto) 16.2 H Lymph # (Auto) 0.1 L Rice # (Auto) 0.8 Eos # (Auto) 0.0 Baso # (Auto) 0.1 WBC Differential Manual diff final Seg Neuts % (Manual) 77 H Band Neuts % (Manual) 18 H Lymphocytes % (Manual) 1 L Monocytes % (Manual) 3 Metamyelocytes % (Man) 1 Abs Neuts (Manual) 16.5 H Differential Comment . Platelet Estimate Normal Platelet Morphology Normal Ovalocytes 1+ H Acanthocytes (Spur) 1+ H Sodium 141 Potassium 3.2 L Chloride 103 Carbon Dioxide 30.8 Anion Gap 7 BUN 37 H Creatinine 0.62 Estimated GFR Greater than 89 POC Glucose 73 Random Glucose 106 Calcium 8.1 L Phosphorus 2.9 Magnesium 1.8 Total Bilirubin 1.0 AST 32 ALT 24 Alkaline Phosphatase 78 Total Protein 6.8 Albumin 3.5 Stl C.difficile DNA Amp St C. diff Tox Epid 027 07/05/18 07/05/18 03:47 08:11 WBC RBC Hgb Hct MCV MCH MCHC RDW Plt Count MPV Prelim Diff (Auto) Neut % (Auto) Lymph % (Auto) Rice % (Auto) Eos % (Auto) Baso % (Auto) Neut # (Auto) Lymph # (Auto) Rice # (Auto) Eos # (Auto) Baso # (Auto) WBC Differential Seg Neuts % (Manual) Band Neuts % (Manual) Lymphocytes % (Manual) Monocytes % (Manual) Metamyelocytes % (Man) Abs Neuts (Manual) Differential Comment Platelet Estimate Platelet Morphology Ovalocytes Acanthocytes (Spur) Sodium Potassium Chloride Carbon Dioxide Anion Gap BUN Creatinine Estimated GFR POC Glucose 111 H 99 Random Glucose Calcium Phosphorus Magnesium Total Bilirubin AST ALT Alkaline Phosphatase Total Protein Albumin Stl C.difficile DNA Amp St C. diff Tox Epid 027 Culture Results: Microbiology 06/30/18 16:30 Gram Stain - Final Sputum - Endotracheal Sputum Culture - Final No growth in 48 hours 06/27/18 10:50 Aerobic Blood Culture - Final Blood - Peripheral No growth in 5 days Anaerobic Blood Culture - Final No growth in 5 days 06/27/18 10:45 Aerobic Blood Culture - Final Blood - Peripheral No growth in 5 days Anaerobic Blood Culture - Final No growth in 5 days Imaging Studies: Impressions Head CT 07/04/18 00:00 CONCLUSION: Interval development of multiple lucencies involving the left frontal and parietal lobes not present on the prior study from 6 days ago most likely multifocal areas of infarction possibly embolic episode without any hemorrhage or mass effect. Underlying metastatic disease is not excluded and further characterization with brain MRI with and without contrast is recommended. Findings were discussed with the patient's nurseNelsy on 2017 at 21:40 hours at the time of this dictation. Medications: Active Medications Generic Name Dose Route Start Last Admin Trade Name Freq PRN Reason Stop Dose Admin Chlorhexidine Gluconate 15 ml 06/29/18 20:00 07/05/18 08:14 Peridex 0.12% Oral Kit OROPHARYNG 15 ml BID@0800,2000 PABLO Administration Dextrose 50 ml 07/01/18 08:03 07/01/18 21:10 D50w Vial IV.PUSH 50 ml UNSCH PRN Administration PER HYPOGLYCEMIA PROTOCOL Furosemide 20 mg 06/28/18 18:00 07/05/18 08:18 Lasix Inj IV.PUSH 20 mg BID@0900,1800 PABLO Administration Hydromorphone HCl 0.5 mg 06/26/18 14:00 07/04/18 06:22 Dilaudid Pf Inj IV.PUSH 0.5 mg Q3H PRN Administration PAIN 3-10 Fat Emulsion Intravenous 250 mls @ 31.25 mls/hr 06/27/18 20:00 07/05/18 02:07 Intralipid 20% Inj IV.SIG 31.25 mls/hr Q24H PABLO Administration Potassium Chloride 40 meq in 100 mls @ 25 mls/hr 06/28/18 13:34 07/05/18 04: 36 Kcl 40 Meq Premix Inj IV.SIG 50 mls/hr Q2H PRN Administration For Potassium 2.8 - 3.2 mEq/L Potassium Chloride 20 meq in 100 mls @ 50 mls/hr 06/28/18 13:34 07/05/18 08: 28 Kcl 20 Meq Premix Inj IV.SIG 50 mls/hr Q2H PRN Administration For Potassium 3.3 - 3.5 mEq/L Potassium Chloride 20 meq in 100 mls @ 50 mls/hr 06/28/18 13:34 07/04/18 14: 00 Kcl 20 Meq Premix Inj IV.SIG Infused Q2H PRN Infusion For Potassium 2.8 - 3.2 mEq/L Potassium Phosphate 30 mmol/ 260 mls @ 42 mls/hr 06/28/18 13:34 06/29/18 03: 13 Sodium Chloride IV.SIG Infused UNSCH PRN Infusion SEE LABEL COMMENTS Albumin Human 100 mls @ 60 mls/hr 06/28/18 16:00 07/05/18 05:34 Flexbumin 25% Inj IV.SIG Infused Q12H PABLO Infusion Metronidazole/Sodium Chloride 100 mls @ 100 mls/hr 06/28/18 17:00 07/05/18 08 :13 Flagyl 500 Mg Inj IV.SIG 100 mls/hr Q8H PABLO Administration Sodium Chloride 5.5 meq/ 2,068.0187 mls @ 42 mls/hr 06/30/18 20:00 07/05/18 02:07 Sodium Acetate 59 meq/ IV.SIG 42 mls/hr Potassium Chloride 40 meq/ Q24H PABLO Administration Magnesium Chloride 10 meq/ Calcium Chloride 9 meq/ Sodium Phosphate 40 meq/ Multivitamins 10 ml/ Folic Acid 1 mg/ Amino Acids Cefepime HCl 2,000 mg/ Sodium 100 mls @ 200 mls/hr 07/03/18 18:00 07/05/18 03 :07 Chloride IV.SIG Infused Q8H PABLO Infusion Insulin Human Regular 0 units 07/01/18 12:00 07/05/18 08:14 Novolin R Correctional Sugar Inj SQ Not Given Q4HR [facility] Protocol Levothyroxine Sodium 50 mcg 06/26/18 06:00 07/05/18 05:34 Synthroid PO 50 mcg DAILY@0600 PABLO Administration Miscellaneous Medication 1 each 06/29/18 16:00 07/05/18 03:48 OROPHARYNG 1 each 0000,0400,1200,1600 PABLO Administration Ondansetron HCl 4 mg 06/26/18 04:31 07/04/18 06:13 Zofran Inj IV.PUSH 4 mg Q6H PRN Administration NAUSEA OR VOMITING Pantoprazole Sodium 40 mg 06/25/18 16:00 07/05/18 08:14 Protonix Inj IV.PUSH 40 mg Q12HR PABLO Administration Sodium Chloride 2 ml 06/27/18 21:00 07/05/18 08:14 Ns Flush IV.FLUSH 2 ml BID PABLO Administration Sodium Chloride 2 ml 06/27/18 10:30 06/28/18 06:02 Ns Flush IV.FLUSH 2 ml PRN PRN Administration FLUSH AFTER USING IV ACCESS Vancomycin HCl 500 mg 06/28/18 16:16 07/05/18 08:15 Vancomycin Po PO 500 mg QID PABLO Administration Objective Remarks: GENERAL: Critically ill appearing female patient. Intubated. Alert, eyes open , tracking. Not following commands or answering questions. SKIN: Pale, warm and dry. HEAD: Normocephalic. EYES: No scleral icterus. No injection or drainage. NECK: Supple, trachea midline. CARDIOVASCULAR: +S1/S2. RESPIRATORY: Breath sounds equal bilaterally. Intubated, on CPAP. GASTROINTESTINAL: Abdomen soft, non-tender, nondistended. EXTREMITIES: No cyanosis. Nonpitting edema RUE, LLE. Fingers and toes pink and warm. NEUROLOGICAL: Intubated. Eyes opened and tracking. Not following commands. Moving left side only, not to command. Assessment/Plan - Plan Ms. 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 She had received 5 days of chemotherapy, completed on 06/13/2018. She is currently receiving radiation therapy which started on she was admitted for acute renal failure related to dehydration, intractable diarrhea from radiation chemotherapy. Plan: 1. Remains intubated, currently on CPAP. She is alert with eyes open, does not follow commands. Moves left side only. Right flaccid. 2. Questionable CVA, right side flaccid. Ct brain showed multiple areas of lucency which have developed in the left frontal anterior parietal lobe and periventricular regions not present previously. There was no hemorrhage or mass -effect. Possibility of multifocal infarct or metastatic disease. Metastatic disease less likely, given the unlikely chance of it developing in 6 days. Neurology has been consulted and independent crop consultant has ordered MRI brain and echocardiogram. 3. Nonocclusive thrombus from previous PICC line. 4. Thrombocytopenia-resolving, Platelets continue to increase 167,000 today. 5. History of Raynauds syndrome, all fingers and toes are pink and warm to the touch today. 6. Sepsis, UTI and C. difficile. Continues on antibiotics per infectious disease. 7. Repeat CBC in the a.m. - Attending Statement The exam, history, and the medical decision-making described in the above note were completed with the assistance of the mid-level provider. I reviewed and agree with the findings presented. I attest that I had a [id number] encounter with the patient on the same day, and personally performed and documented my assessment and findings in the medical record. Patient remains on the ventilator. She opens her eyes and tracking but not following command. Right-sided paralysis noted. Continue supportive care per
--- NOTE | 2018-07-05 10:34 | MB ---
cc: Batool Tilley MD DATE: 07/05/2018 REASON FOR CONSULTATION: Stroke. HISTORY OF PRESENT ILLNESS: History is taken from the chart. A 72-year-old woman with a history of anorectal squamous cell carcinoma, mixed connective tissue disease, remote cervical cancer, post-hysterectomy, hypothyroidism, had apparently anal pain and bleeding in January 2018; saw Dr. Coelho, did a biopsy and showed invasive squamous cell carcinoma. Outpatient PET scan showed no local or distant metastatic disease. She underwent radiation therapy, chemotherapy, completed first chemo cycle 06/13/2018, had loose watery stools for several days. She was found to be pancytopenic. CT abdomen and pelvis showed fluid filled small bowel with partial small-bowel obstruction and/or ileus. Blood cultures 1 out of 3 showed Pseudomonas. She was started on antibiotics. She had a fever of 101.2, T-max. Right upper extremity PICC line placed 06/09/2010. On 06/27/2018, noted that she was lethargic on amiodarone drip. Heart rate was controlled, remained confused over the next few days, noted to be weaker on the right side on 06/28/2018, but was not deemed to be a candidate for tPA due to severe thrombocytopenia. Time of onset probably was not known per my estimate. She has been tolerating CPAP all day yesterday, still not moving the right side. CT of the brain showed interval development of multiple lucencies in the left frontoparietal lobes that was not seen 6 days ago. It looks like it might have been embolic versus underlying metastatic disease that was not excluded. Neurology is consulted. PHYSICAL EXAMINATION: VITAL SIGNS: Her temperature is 98.2, pulse 87, respiratory rate 14. Her blood pressure is 143/73. GENERAL: She is awake. She is alert, at times tracks me. Her pupils are reactive. I cannot see any significant facial asymmetry, but she is intubated. She does not move her right side. Does not grimace to pain when I elicit painful stimuli on the right arm and leg. Right toe is neutral. Left side, she withdraws, moves spontaneously. Cannot speak due to ET tube, but does not follow any commands for me either. LABORATORY DATA: Reviewed. White count 17.2, hemoglobin 11.3, her platelets now are 167,000. Chemistry: Potassium 3.2, BUN 37, glucose 99, calcium 8.1. TSH is 0.984. IMPRESSION: Right hemiparesis, likely consistent with a stroke. PLAN: Recommend having her undergo an MRI of the brain, MRA [place] of [place] and carotid. Get an echo if not ordered. If Hematology is okay with it, I would start her on a baby aspirin; however, if she is in an abnormal rhythm consistent with what may be atrial fibrillation, she may benefit from anticoagulation, warfarin versus Eliquis is a possibility. Have PT, OT assess her. If she is extubated, speech therapy. Rehab consult. SCDs, subcutaneous heparin and/or Lovenox for DVT prevention, and we will continue to monitor and make further recommendations accordingly. MD LISA Bryan/thomas , 09:43 AM , 09:52 AM
[2018-07-05] MEDS ORDERED: Gadobutrol PF 10 MMOL/10 ML Vial (for RAD) IV.SIG ONE (10:57)
--- NOTE | 2018-07-05 11:18 | MR ---
EXAM DATE: 07/05/2018 9:50 AM EDT AGE/SEX: 72 years / Female INDICATIONS: CVA. CLINICAL DATA: This is the patient's initial encounter. Patient reports that signs and symptoms have been present for 2 weeks and indicates a pain score of 0/10. MEDICAL/SURGICAL HISTORY: Carcinoma, cervical. Carcinoma, rectal. Hysterectomy. COMPARISON: [facility] [place], [place] HEAD W/O CONTRAST, 07/04/2018. [facility] [place], CT HEAD W/O CONTRAST, 06/28/2018. . TECHNIQUE: 3D [id number] MRA was performed. Source images, multiplanar STS MIP, and 3D volum e MIP reconstructions were reviewed. FINDINGS: There is decreased caliber of the left MCA M2 segment. The caliber of the vessels within the insula i s significantly decreased in size as compared to that seen on the right, however, no evidence of abru pt termination or focal stenosis. The remainder of the vascular anatomy demonstrates normal caliber. CONCLUSION: 1. Decreased caliber of the left M2 segment of the MCA corresponding with the areas of hypoattenuati on on comparison CT. Findings are concerning for multifocal acute infarct. Electronically signed by: Martha Mendez MD 07/05/2018 11:17 AM EDT
--- NOTE | 2018-07-05 11:19 | P.DIET ---
Nutritional Evaluation Type of nutrition evaluation: initial Nutrition consult regarding: TPN/PPN [place] [facility] [place] Objective - Diagnosis Diarrhea. PMH See H&P - Objective [place] body weight: 53 kg % IBW: 100 Body Weight Used for Calculations: Actual Energy Needs - Lower Range (kCal/kg): 30 Energy Needs - Upper Range (kCal/kg): 35 Lower Limit kCal/kg (kCals): 1,590 Upper Limit kCal/kg (kCals): 1,855 Lower Limit Protein Factor (Grams per Kg): 1 Upper Limit Protein Factor (Grams per Kg): 1.5 Lower Protein Needs (Protein): 53 Upper Protein Needs (Protein): 80 Dietitian Reviewed in Medical Record: Curent medications, Intake & Output, Labs , Medical history, TPN/PPN Diet Order: NPO Assessment Assessment: Pt. remains intubated and sedated, off pressors. noted possible w/d tomorrow. If care is continued recommend changing TPN to 5/25 @ 50mls/hr with 20 % lipids @ 31.25mls/hr over 8 hours. Will provide 1760kcals and 60g of protein. Monitor TPN, labs, UOP, BM and skin Recommendations: 1. Recommend changing TPN to 5/25 @ 50mls/hr with 20% lipids @ 31.25mls/hr over 8 hours. 2. Monitor TPN, labs, UOP, BM and skin Dietitian to Monitor: Lab values, Electrolytes, Renal labs, Glucose level, TPN/ PPN tolerance, Weight change, Diet advancement, Wound/skin status, Medical course
--- NOTE | 2018-07-05 11:26 | P.DIET ---
Nutritional Evaluation Type of nutrition evaluation: initial Nutrition consult regarding: TPN/PPN Nutrition [place] [facility] [place] Objective - Diagnosis Diarrhea. PMH See H&P - Objective [place] body weight: 53 kg % IBW: 100 Body Weight Used for Calculations: Actual Energy Needs - Lower Range (kCal/kg): 30 Energy Needs - Upper Range (kCal/kg): 35 Lower Limit kCal/kg (kCals): 1,590 Upper Limit kCal/kg (kCals): 1,855 Lower Limit Protein Factor (Grams per Kg): 1 Upper Limit Protein Factor (Grams per Kg): 1.5 Lower Protein Needs (Protein): 53 Upper Protein Needs (Protein): 80 Dietitian Reviewed in Medical Record: Curent medications, Intake & Output, Labs , Medical history, TPN/PPN Diet Order: NPO Objective Comments: Synthroid QD Assessment Assessment: [facility] [place] feeding. Recommend changing TFing to Jevity 1.5 with a goal rate of 55mls/hr. over 22 hours. When tolerating TFing at 20mls/hr, d/c lipids. When TFing gets to goal rate of 55mls/hr. wean TPN per protocol. Monitor TFIng tolerance and labs. Recommendations: 1. Recommend changing TFing to Jevity 1.5 with a goal rate of 55mls/hr. over 22 hours. 2. When tolerating TFing at 20mls/hr, d/c lipids. 3. When TFing gets to goal rate of 55mls/hr wean TPN per protocol. 4. Monitor TFIng tolerance and labs. Dietitian to Monitor: Lab values, Electrolytes, Renal labs, Glucose level, Tube feeding tolerance, Weight change, Wound/skin status, Medical course
--- NOTE | 2018-07-05 11:45 | MR ---
EXAM DATE: 07/05/2018 9:32 AM EDT AGE/SEX: 72 years / Female INDICATIONS: Stroke. CLINICAL DATA: This is the patient's subsequent encounter. Patient reports that signs and symptoms h ave been present for 2 weeks and indicates a pain score of 2/10. MEDICAL/SURGICAL HISTORY: Carcinoma, rectal. Carcinoma, cervical. Hysterectomy. [place]PAR[place]: [facility] [place], 07/05/2018. [facility] [place], M[place] HEAD W/O CONTRAST, 07/05/2018. . TECHNIQUE: 10cc ml Gadavist (gadobutrol) contrast infused MRA (single exam dose) of the extracrania l circulation was performed using a neurovascular coil. Postprocessing was performed, including rota ting sub-volume maximum intensity projections of each carotid artery, rotating full-volume maximum in tensity projections of both carotid arteries, sagittal and coronal sliding thin-slab reformations of each carotid artery, and left oblique sliding thin-slab reformation through the aortic arch to includ e the origin of the arch branch vessels. FINDINGS: Aortic Arch : There is a three-vessel origin of the great vessels from the aorta. No evidence of o stial narrowing. Right Carotid : The common carotid artery is intact. The carotid bulb has a normal configuration wi thout ulceration or narrowing. The internal carotid artery lumen is smooth without stenosis. The ex ternal carotid artery is intact. Left Carotid : The common carotid artery is intact. The carotid bulb has a normal configuration wit hout ulceration or narrowing. The internal carotid artery lumen is smooth without stenosis. The ext ernal carotid artery is intact. Vertebrals : The vertebral arteries have a symmetric diameter. No stenotic lesions are seen. CONCLUSION: 1. Negative MRA Carotids. Percent stenosis is calculated using the diameter of the stenotic region over the diameter of the nor mal distal internal carotid artery Electronically signed by: Martha Mendez MD 07/05/2018 11:43 [place]
--- NOTE | 2018-07-05 11:49 | MR ---
EXAM DATE: 07/05/2018 9:32 AM EDT AGE/SEX: 72 years / Female INDICATIONS: CVA. CLINICAL DATA: This is the patient's subsequent encounter. Patient reports that signs and symptoms h ave been present for 2 weeks and indicates a pain score of 2/10. MEDICAL/SURGICAL HISTORY: Carcinoma, rectal. Carcinoma, cervical. Hysterectomy. [place] [facility] [place] [facility] [place]. . TECHNIQUE: Multiplanar, multisequence examination of the brain was performed without contrast. FINDINGS: Cerebrum: The ventricles are normal in size. There are multiple areas of abnormal increased T2 signa l identified involving the white matter and boykin matter of the left frontal lobe, left parietal lobe, occipital lobe with scattered areas of increased T2 signal also identified within the right frontopa rietal lobe on image 17 and scattered foci of increased T2 signal identified within the bilateral cer ebellar hemispheres. No evidence of midline shift or significant mass effect. Posterior Fossa: The cerebellum and brainstem are intact. The 4th ventricle is midline. The cerebel lopontine angle is unremarkable. The cerebellar tonsils are normal in position. Diffusion Imaging: There are multiple foci of restricted diffusion identified within the bilateral c erebellum, and supratentorial brain. The most confluent areas involve a large segment of the left fro ntal and parietal lobe in the distribution of the left MCA. Extracranial: The visualized portions of the orbits and paranasal sinuses are unremarkable. CONCLUSION: 1. Multifocal infarcts as noted above. Given the multiplicity and bilaterality this suggests possibl e embolic infarcts versus vasculitis. Comparison MRA demonstrated narrowing of the left M2 segment. Electronically signed by: Martha Mendez MD 07/05/2018 11:48 AM EDT
--- NOTE | 2018-07-05 17:02 | P.PNID ---
Subjective Remarks: minimal secretions + diarrhea TPN stopped started on trickle TF again moves L side only MRI with embolic strokes Antibiotics: cefepime vanco PO flagyl Past Medical History: anal cancer Allergies/Adverse Reactions: Allergies No Known Allergies Allergy (Verified 06/25/18 12:06) Objective Vital Signs 07/04/18 17:00 07/04/18 18:00 07/04/18 19:00 Temperature Pulse Rate 85 81 84 Respiratory Rate 19 18 19 Blood Pressure 146/73 H 131/70 133/72 Pulse Oximetry 100 100 99 07/04/18 19:50 07/04/18 19:54 07/04/18 20:00 Temperature 98.6 F Pulse Rate 85 84 Respiratory Rate 17 17 16 Blood Pressure 130/71 Pulse Oximetry 99 07/04/18 21:00 07/04/18 21:22 07/04/18 21:41 Temperature Pulse Rate 88 86 91 H Respiratory Rate 16 23 19 Blood Pressure 135/74 140/78 144/71 H Pulse Oximetry 98 100 99 07/04/18 22:00 07/04/18 23:00 07/04/18 23:28 Temperature Pulse Rate 90 81 89 Respiratory Rate 15 18 16 Blood Pressure 140/76 147/75 H Pulse Oximetry 99 100 07/05/18 00:00 07/05/18 00:34 07/05/18 01:00 Temperature 98 F Pulse Rate 85 87 Respiratory Rate 16 16 14 Blood Pressure 149/79 H 138/76 Pulse Oximetry 100 100 100 07/05/18 02:00 07/05/18 03:00 07/05/18 03:15 Temperature Pulse Rate 86 80 Respiratory Rate 16 15 15 Blood Pressure 142/82 H 125/68 Pulse Oximetry 100 98 99 07/05/18 03:59 07/05/18 04:00 07/05/18 07:21 Temperature 98.2 F Pulse Rate 88 91 H 87 Respiratory Rate 15 16 14 Blood Pressure 143/73 H Pulse Oximetry 100 98 07/05/18 08:00 07/05/18 11:00 07/05/18 11:48 Temperature 98.7 F Pulse Rate 91 H 69 Respiratory Rate 21 15 18 Blood Pressure 144/76 H Pulse Oximetry 99 98 07/05/18 12:00 07/05/18 16:00 07/05/18 16:17 Temperature 98.4 F 98.6 F Pulse Rate 81 88 Respiratory Rate 22 17 17 Blood Pressure 135/69 124/75 Pulse Oximetry 100 99 98 Intake & Output 07/04/18 07/05/18 07/05/18 18:59 06:59 18:59 Intake Total 700 / 700 2468.0187 / 2468.0187 887 / 887 Output Total 1500 / 1500 1350 / 1350 Balance -800 / -800 1118.0187 / 1118.0187 887 / 887 Weight 55 kg Intake: IV 700 / 700 2468.0187 / 2468.0187 887 / 887 Flexbumin 25% Inj 100 ML @ 60 100 / 100 100 / 100 mls/hr IV.SIG Q12H PABLO Rx#: [id number] Maxipime Inj 2,000 MG In NS Inj 100 / 100 200 / 200 100 / 100 100 ML @ 200 mls/hr IV.SIG Q8H PABLO Rx#:[id number] Intralipid 20% Inj 250 ML @ 31. 250 / 250 25 mls/hr IV.SIG Q24H PABLO Rx#: [id number] KCl 20 mEq Premix Inj 20 meq In 300 / 300 200 / 200 100 ml @ 50 mls/hr IV.SIG Q2H PRN Rx#:[id number] KCl 40 mEq Premix Inj 40 meq In 100 / 100 100 ml @ 25 mls/hr IV.SIG Q2H PRN Rx#:[id number] Sodium Chloride 23.4% Inj 5.5 2067.018 / 018 137 / 137 MEQ Sodium Acetate Inj 59 MEQ KCl Inj 40 MEQ Magnesium Chloride Inj 10 MEQ Calcium Chloride Inj 9 MEQ Sodium Phosphate Inj 40 MEQ MVI-12 Inj 10 ML Folvite Inj 1 MG In Clinimix 5%/D20W Inj 2,000 ML @ 42 mls/hr IV.SIG Q24H PABLO Rx#: [id number] Flagyl 500 MG Inj 100 ML @ 100 200 / 200 100 / 100 100 / 100 mls/hr IV.SIG Q8H PABLO Rx#: [id number] Output: Urine Amount (Catheter) 1500 / 1500 1350 / 1350 Indwelling Urethral Catheter 1500 / 1500 1350 / 1350 Other: Date of Last Bowel Movement 07/01/18 07/01/18 07/05/18 # Bowel Movements 8 0 Lab - Hematology Results 07/04/18 07/05/18 03:30 03:25 WBC 16.9 H 17.2 H RBC 4.29 4.32 Hgb 11.1 L 11.3 L Hct 34.0 L 34.0 L MCV 79.3 L 78.7 L MCH 25.9 L 26.2 L MCHC 32.7 33.2 RDW 20.0 H 20.0 H Plt Count 109 L D 167 D MPV 11.4 H 11.1 H Prelim Diff (Auto) Slide review pending Slide review pending Neut % (Auto) 95.5 H 94.3 H Lymph % (Auto) 1.2 L 0.9 L [place] % (Auto) 3.0 4.5 Eos % (Auto) 0.1 0.0 Baso % (Auto) 0.2 0.3 Neut # (Auto) 16.2 H 16.2 H Lymph # (Auto) 0.2 L 0.1 L [place] # (Auto) 0.5 0.8 Eos # (Auto) 0.0 0.0 Baso # (Auto) 0.0 0.1 WBC Differential Manual diff final Manual diff final Seg Neuts % (Manual) 81 H 77 H Band Neuts % (Manual) 17 H 18 H Lymphocytes % (Manual) 1 L Monocytes % (Manual) 1 3 Metamyelocytes % (Man) 1 Myelocytes % (Man) 1 H Abs Neuts (Manual) 16.7 H 16.5 H Differential Comment . . Platelet Estimate Low L Normal Platelet Morphology Enlarged H Normal Ovalocytes 1+ H Acanthocytes (Spur) 1+ H Keratocytes Occ H Lab - Chemistry Results 07/03/18 07/03/18 07/04/18 19:34 23:21 03:30 Sodium 142 Potassium 2.9 L* Chloride 102 Carbon Dioxide 31.5 Anion Gap 9 BUN 39 H Creatinine 0.66 Estimated GFR 89 POC Glucose 93 103 Random Glucose 130 H Calcium 8.0 L Phosphorus 3.1 Magnesium 1.7 Total Bilirubin 0.8 AST 23 ALT 20 Alkaline Phosphatase 80 Total Protein 6.4 Albumin 3.1 L 07/04/18 07/04/18 07/04/18 03:33 08:23 11:51 Sodium Potassium Chloride Carbon Dioxide Anion Gap BUN Creatinine Estimated GFR POC Glucose 121 H 82 73 Random Glucose Calcium Phosphorus Magnesium Total Bilirubin AST ALT Alkaline Phosphatase Total Protein Albumin 07/04/18 07/04/18 07/04/18 16:23 18:15 20:31 Sodium Potassium 3.7 D Chloride Carbon Dioxide Anion Gap BUN Creatinine Estimated GFR POC Glucose 102 81 Random Glucose Calcium Phosphorus Magnesium Total Bilirubin AST ALT Alkaline Phosphatase Total Protein Albumin 07/04/18 07/05/18 07/05/18 23:52 01:06 03:25 Sodium 141 Potassium 3.2 L Chloride 103 Carbon Dioxide 30.8 Anion Gap 7 BUN 37 H Creatinine 0.62 Estimated GFR Greater than 89 POC Glucose 87 73 Random Glucose 106 Calcium 8.1 L Phosphorus 2.9 Magnesium 1.8 Total Bilirubin 1.0 AST 32 ALT 24 Alkaline Phosphatase 78 Total Protein 6.8 Albumin 3.5 07/05/18 07/05/18 07/05/18 03:47 08:11 11:30 Sodium Potassium Chloride Carbon Dioxide Anion Gap BUN Creatinine Estimated GFR POC Glucose 111 H 99 75 Random Glucose Calcium Phosphorus Magnesium Total Bilirubin AST ALT Alkaline Phosphatase Total Protein Albumin 07/05/18 16:40 Sodium Potassium Chloride Carbon Dioxide Anion Gap BUN Creatinine Estimated GFR POC Glucose 75 Random Glucose Calcium Phosphorus Magnesium Total Bilirubin AST ALT Alkaline Phosphatase Total Protein Albumin Imaging: ITS Impressions Abdomen/Pelvis CT 06/28/18 00:00 CONCLUSION: 1. Colonic diverticula. 2. Persistent 4.6 cm left adnexal cystic mass. 3. Distended gallbladder. 4. Cortical calcic location seen at the left kidney with some cortical thinning. There are multiple left-sided renal masses likely related to cysts although they're nonspecific on this noncontrast CT examination. Chest CT 06/28/18 00:00 CONCLUSION: 1. Development of moderate bilateral pleural effusions being worse in the right. 2. Areas of consolidation or atelectasis at the posterior lower lungs. Given the effusions is likely represent areas of atelectasis. 3. Consolidation and bronchiectasis in the right upper lung. This was present on the prior exam. It appears to progress. 4. Distended esophagus throughout the chest. Venous Doppler Study 06/29/18 00:00 CONCLUSION: Mild nonocclusive thrombus in the right axillary vein to the brachial vein. Abdomen X-Ray 07/02/18 00:00 CONCLUSION: No dilated bowel loops to suggest ileus. Chest X-Ray 07/03/18 00:00 CONCLUSION: 1. Bilateral perihilar and right lower lobe airspace disease not significant change. 2. Rounded density overlying the left upper lung could be external to patient. Attention to this area on follow-up studies recommended. Head CT 07/04/18 00:00 CONCLUSION: Interval development of multiple lucencies involving the left frontal and parietal lobes not present on the prior study from 6 days ago most likely multifocal areas of infarction possibly embolic episode without any hemorrhage or mass effect. Underlying metastatic disease is not excluded and further characterization with brain MRI with and without contrast is recommended. Findings were discussed with the patient's nurse, Nelsy on 2017 at 21:40 hours at the time of this dictation. Head MRI 07/05/18 00:00 CONCLUSION: 1. Multifocal infarcts as noted above. Given the multiplicity and bilaterality this suggests possible embolic infarcts versus vasculitis. Comparison MRA demonstrated narrowing of the left M2 segment. Head MRA 07/05/18 00:00 CONCLUSION: 1. Decreased caliber of the left M2 segment of the MCA corresponding with the areas of hypoattenuation on comparison CT. Findings are concerning for multifocal acute infarct. Neck MRA 07/05/18 00:00 CONCLUSION: 1. Negative MRA Carotids. Percent stenosis is calculated using the diameter of the stenotic region over the diameter of the normal distal internal carotid artery Physical Exam: GENERAL: awake, alert intubated SKIN: Warm and dry. No rash EYES: Pupils equal and round. No scleral icterus. No injection or drainage. ENT: No nasal bleeding or discharge. Mucous membranes very dry and crusted secretions in oropharynx is present NECK: Trachea midline. No JVD. no edema erythema of the neck CARDIOVASCULAR: Regular rate and rhythm. No murmurs RESPIRATORY: No accessory muscle use. Clear to auscultation. Breath sounds equal bilaterally. GASTROINTESTINAL: Abdomen soft, mildly tender to palpation, + mildly distended. Hepatic and splenic margins not palpable. MUSCULOSKELETAL: Extremities without clubbing, less of edema. No obvious deformities. + non pitting RUE edema trace BLE edemas NEUROLOGICAL: awke, alert, tracks, makes eye contact, spontaneously moves L side R side plegic PSYCHIATRIC: unable to asseess Assessment and Plan - Plan Stage II anal canal carcinoma, undergoing XRT, chemo PSAE sepsis on presentation, source ? PICC vs - thompson S UTI Sepsis' C.diff colitis US RUE showed non occlusive thrombus New multifocal strokes, likely embolic with significan t neurodeficits cont cefepime @ pseudomoanl dosage (q 8hrs) thru 07/11 (14 days from 1st positive clx) cont Flagyl IV cont oral vanco 500 blood clx [address] Danielle
--- NOTE | 2018-07-05 18:02 | ECHRPT ---
Indication: CVA/TIA CONCLUSIONS The left ventricular systolic function is normal with an estimated ejection fraction in the range of 55-60%. Doppler parameters are consistent with impaired left ventricular relaxtion (grade 1 diastolic dysfun ction). BP: / HR: Rhythm: Sinus MEASUREMENTS (Male / Female) Normal Values Technical Quality:Fair 2D ECHO LV Diastolic Diameter PLAX 3.1 cm 4.2 - 5.9 / 3.9 - 5.3 cm LV Systolic Diameter PLAX 2.2 cm IVS Diastolic Thickness 0.9 cm 0.6 - 1.0 / 0.6 - 0.9 cm LVPW Diastolic Thickness 1.0 cm 0.6 - 1.0 / 0.6 - 0.9 cm LV Relative Wall Thickness 0.6 LVOT Diameter 1.7 cm LV Ejection Fraction MOD 4C 64.4 % LV Ejection Fraction 4C AL 68.0 % M-MODE Aortic Root Diameter MM 2.0 cm AV Cusp Separation MM 1.4 cm DOPPLER AV Peak Velocity 135.0 cm/s AV Peak Gradient 7.3 mmHg LVOT Peak Velocity 80.5 cm/s LVOT Peak Gradient 2.6 mmHg AV Area Cont Eq pk 1.4 cm MV Area PHT 3.7 cm Mitral E Point Velocity 69.6 cm/s Mitral A Point Velocity 96.7 cm/s Mitral E to A Ratio 0.7 LV E' Lateral Velocity 8.0 cm/s Mitral E to LV E' Lateral Ratio 8.7 LV E' Septal Velocity 4.0 cm/s Mitral E to LV E' Septal Ratio 17.4 PV Peak Velocity 115.0 cm/s PV Peak Gradient 5.3 mmHg FINDINGS LEFT VENTRICLE The left ventricular systolic function is normal with an estimated ejection fraction in the range of 55-60%. Normal left ventricular size. Wall thickness is normal. Doppler parameters are consistent with impaired left ventricular relaxtion (grade 1 diastolic dysfun ction). RIGHT VENTRICLE Normal right ventricular size and systolic function. LEFT ATRIUM The left atrial size is normal. RIGHT ATRIUM The right atrial size is normal. ATRIAL SEPTUM Thickened atrial septum is noted with morphological features most consistent with a lipomatous atria l septum. AORTA The aortic root and proximal ascending aorta are normal in size on limited imaging. MITRAL VALVE Structurally normal mitral valve. No mitral valve stenosis or regurgitation. AORTIC VALVE The aortic valve is not well visualized. No aortic valve regurgitation. No aortic valve stenosis. TRICUSPID VALVE Structurally normal tricuspid valve. No tricuspid valve stenosis or regurgitation. PULMONARY VALVE The pulmonary valve is not well visualized. VESSELS The inferior vena cava is normal in size. PERICARDIUM No pericardial effusion. Ryan Farfan DO (Electronically Signed) Final Date:05 July 2018 18:00
[2018-07-06] MEDS: Insulin NovoLIN Regular Correctional Sugar Inj SQ SCH ×6 (00:51→20:45)
[2018-07-06] MEDS: Oral Hygiene Kit OROPHARYNG SCH ×4 (00:52→16:12)
[2018-07-06] MEDS: Albumin Human 25% Inj 100 ML IV.SIG SCH ×2 (04:00→16:11)
[2018-07-06] MEDS: Levothyroxine 50 MCG Tablet PO SCH (05:54)
[2018-07-06 06:01] LABS: Baso % (Auto) 0.2 % (0.0-2.0); Hematocrit 32.6 % (35.0-46.0); Hemoglobin 10.6 gm/dL (11.6-15.3); Lymph # (Auto) 0.1 th/mm3 (1.0-4.8); Lymph % (Auto) 0.7 % (9.0-44.0); Mean Corpuscular HGB Conc 32.5 % (32.0-36.0); Mean Corpuscular Hemoglobin 25.7 pg (27.0-34.0); Mean Corpuscular Volume 79.1 fL (80.0-100.0); Mean Platelet Volume 10.1 fL (7.0-11.0); Mono % (Auto) 6.3 % (0.0-8.0); Neut # (Auto) 14.7 th/mm3 (1.8-7.7); Neut % (Auto) 92.8 % (16.0-70.0); Platelet Count 212 th/mm3 (150-450); Red Blood Count 4.13 mil/mm3 (4.00-5.30); Red Cell Distribution Width 19.8 % (11.6-17.2); White Blood Count 15.9 th/mm3 (4.0-11.0)
[2018-07-06 06:31] LABS: Albumin 3.8 g/dL (3.4-5.0); Anion Gap 8 meq/L (5-15); Aspartate Aminotransferase 21 U/L (15-37); Blood Urea Nitrogen 43 mg/dL (7-18); Calcium 8.7 mg/dL (8.5-10.1); Carbon Dioxide 28.3 meq/L (21.0-32.0); Chloride 105 meq/L (98-107); Glomerular Filtration Rate 84 mL/min (>89); Glucose,Random 108 mg/dL (74-106); Magnesium 1.9 mg/dL (1.5-2.5); Potassium 3.5 meq/L (3.5-5.1); Sodium 141 meq/L (136-145)
[2018-07-06 06:32] LABS: Alanine Aminotransferase 20 U/L (10-53); Phosphorus 2.9 mg/dL (2.5-4.9)
[2018-07-06 06:35] LABS: Alkaline Phosphatase 81 U/L (45-117)
[2018-07-06] MEDS: Chlorhexidine 0.12% Oral Kit 15 ML UDC OROPHARYNG SCH ×2 (08:01→20:45)
[2018-07-06] MEDS: Enoxaparin Inj 40 MG/0.4 ML Syringe SQ SCH (08:01)
[2018-07-06] MEDS: Pantoprazole Inj 40 MG Vial IV.PUSH SCH ×2 (08:01→20:45)
[2018-07-06] MEDS: Sodium Chloride 0.9% 2 ML Flush BID IV.FLUSH SCH ×2 (08:02→20:45)
--- NOTE | 2018-07-06 08:14 | P.PNCC ---
Subjective Subjective Remarks/Hospital Course: 72-year-old female with past medical history of anorectal squamous cell carcinoma, mixed connective tissue disease (SLE, Reynaud's, Polymyositis), remote cervical cancer status post hysterectomy, hypothyroid . She originally developed anal pain and bleeding in January of 2018. She was referred to Dr. Coelho who performed biopsy of anal mass on 04/25/18 which demonstrated invasive squamous cell carcinoma. Outpatient PET reportedly showed no local or distant metastatic disease. She has been undergoing radiation therapy under the care of Dr Concepcion. Concurrent chemotherapy is planned for week 1 and 5 of radiation; and she completed first chemo cycle 06/13/18. She has reportedly been having loose watery stools for several days, difficult to determine exact time of onset. She has also had abdominal pain. When she presented for radiation treatment on 06/25, she was weak and hypotensive so she was sent to the ED. She was pancytopenic with ANC 768. CT abd/pelvis showed fluid filled small bowel c/ w partial SBO or ileus. She was admitted to hospitalist service. Blood cultures were obtained 09/25 which have now resulted + pseudomonas in 09/26 bottles. She was started on cefepime 2 gram IV and vancomycin per hematology. Tmax was 101.2 Neon Sign Erector consult has been requested. She has a RUE PICC placed 06/09 which does not have overt clinical signs of infection, but will be removed. 06/27 Patient is lethargic on Amio drip ( HR now controlled) Afebrile. 06/28 patient lying on bed very lethargic remains on amiodarone infusion. Appears very critical. WBC count is improved to 7.8, platelet count of 35. BUN /creatinine further elevated at 66/1.36. Patient not to be weaker on the right upper and lower extremity-I do not see any history of CVA. Will check CT of the head stat. Patient is not a candidate for TPA due to severe thrombocytopenia, so will not initiate stroke alert. Breathing slightly labored 06/29: Clinically deteriorating very lethargic tachypneic. ABG shows significant hypoxia. Chest x-ray shows worsening bilateral infiltrates/edema. I had discussed with daughters yesterday they wanted to continue full code, patient is encephalopathy again unable to make any decisions at this time. Give additional 20 mg of IV Lasix and continue scheduled 20 mg twice daily. If not improving in the next 45-60 minutes will need endotracheal intubation 06/30: Severely septic lady who is intubated for severe respiratory failure on . Likely has acute lung injury from severe sepsis. FiO2 remains high at 65% to maintain sat above 90%. Chest x-ray is pending at this time WBC count 16 , sodium is 150, BUN 67 creatinine 1.3. Urine output adequate with Lasix 07/01 Patient remains intubated and sedated with Versed drip 3mg/hr, on Amio drip and TPN. s/p 1u PLT pheresis yesterday PLT count 12 this morning. 07/02 Patient is sedated with Versed and intubated. Afebrile, on Amio drip.s/p 1u PLT transfusion yesterday 07/03 No events overnight. Off sedation. Tolerated CPAP x 6 hrs yesterday. Afebrile. 07/04 No events overnight. Remains off sedation more awake. Afebrile. 07/05 Patient remains intubated tolerated CPAP all day yesterday. Not moving right side. CT brain yesterday interval development of multiple lucencies involving the left frontal and parietal lobes not present on the prior study from 6 days ago most likely multifocal areas of infarction possibly embolic episode without any hemorrhage or mass effect. Underlying metastatic disease is not excluded. 07/06 Patient remains intubated on CPAP with PS 15, PEEP:5 and FIO2: 40%. Afebrile. Objective Vital Signs / I&O: Vital Signs 07/05/18 11:00 07/05/18 11:48 07/05/18 12:00 Temperature 98.4 F Pulse Rate 69 81 Respiratory Rate 15 18 22 Blood Pressure 135/69 Pulse Oximetry 98 100 07/05/18 16:00 07/05/18 16:17 07/05/18 17:00 Temperature 98.6 F Pulse Rate 88 94 H Respiratory Rate 17 17 21 Blood Pressure 124/75 135/76 Pulse Oximetry 99 98 07/05/18 18:00 07/05/18 19:00 07/05/18 20:00 Temperature 98.2 F Pulse Rate 92 H 91 H 91 H Respiratory Rate 19 12 14 Blood Pressure 133/78 123/65 117/72 Pulse Oximetry 100 07/05/18 20:05 07/05/18 20:07 07/05/18 21:00 Temperature Pulse Rate 85 84 Respiratory Rate 11 L 11 L 13 Blood Pressure 132/67 Pulse Oximetry 100 07/05/18 22:00 07/05/18 23:00 07/05/18 23:33 Temperature Pulse Rate 88 95 H Respiratory Rate 13 13 15 Blood Pressure 121/67 122/64 Pulse Oximetry 100 100 100 07/06/18 00:00 07/06/18 01:00 07/06/18 02:00 Temperature 98.6 F Pulse Rate 80 93 H 96 H Respiratory Rate 9 L 12 9 L Blood Pressure 126/60 127/70 126/73 Pulse Oximetry 100 100 100 07/06/18 03:00 07/06/18 03:55 07/06/18 04:00 Temperature 98.6 F Pulse Rate 94 H 95 H Respiratory Rate 13 10 L 20 Blood Pressure 120/66 132/78 Pulse Oximetry 98 98 100 Intake & Output 07/05/18 07/06/18 07/06/18 18:59 06:59 18:59 Intake Total 956 / 956 1023 / 1023 Output Total 1750 / 1750 1250 / 1250 Balance -794 / -794 -227 / -227 Weight 52.6 kg Intake: IV 887 / 887 600 / 600 Flexbumin 25% Inj 100 ML @ 60 200 / 200 mls/hr IV.SIG Q12H [facility] Rx#: [id number] Maxipime Inj 2,000 MG In NS Inj 100 / 100 200 / 200 100 ML @ 200 mls/hr IV.SIG Q8H [facility] Rx#:[id number] Intralipid 20% Inj 250 ML @ 31. 250 / 250 25 mls/hr IV.SIG Q24H [facility] Rx#: [id number] KCl 20 mEq Premix Inj 20 meq In 200 / 200 100 ml @ 50 mls/hr IV.SIG Q2H PRN Rx#:[id number] KCl 40 mEq Premix Inj 40 meq In 100 / 100 100 ml @ 25 mls/hr IV.SIG Q2H PRN Rx#:[id number] Sodium Chloride 23.4% Inj 5.5 137 / 137 MEQ Sodium Acetate Inj 59 MEQ KCl Inj 40 MEQ Magnesium Chloride Inj 10 MEQ Calcium Chloride Inj 9 MEQ Sodium Phosphate Inj 40 MEQ MVI-12 Inj 10 ML Folvite Inj 1 MG In Clinimix 5%/D20W Inj 2,000 ML @ 42 mls/hr IV.SIG Q24H [facility] Rx#: [id number] Flagyl 500 MG Inj 100 ML @ 100 100 / 100 200 / 200 mls/hr IV.SIG Q8H [facility] Rx#: [id number] Oral 0 / 0 Tube Feeding 69 / 69 303 / 303 Tube Irrigant 60 / 60 Other 60 / 60 Output: Urine Amount (Catheter) 1750 / 1750 1250 / 1250 Indwelling Urethral Catheter 1750 / 1750 1250 / 1250 Other: Other Intake Source Saline Solution Date of Last Bowel Movement 07/05/18 07/05/18 # Bowel Movements 1 Result Diagrams: 07/06/18 04:02 07/06/18 04:02 Other Results: Laboratory Results - last 12 hr 07/06/18 07/06/18 07/06/18 00:18 00:20 03:55 WBC RBC Hgb Hct MCV MCH MCHC RDW Plt Count MPV Neut % (Auto) Lymph % (Auto) [place] % (Auto) Eos % (Auto) Baso % (Auto) Neut # (Auto) Lymph # (Auto) [place] # (Auto) Eos # (Auto) Baso # (Auto) WBC Differential Differential Comment Sodium Potassium 3.6 Chloride Carbon Dioxide Anion Gap BUN Creatinine Estimated GFR POC Glucose 86 150 H Random Glucose Calcium Phosphorus Magnesium Total Bilirubin AST ALT Alkaline Phosphatase Total Protein Albumin 07/06/18 07/06/18 07/06/18 04:02 04:02 07:50 WBC 15.9 H RBC 4.13 Hgb 10.6 L Hct 32.6 L MCV 79.1 L MCH 25.7 L MCHC 32.5 RDW 19.8 H Plt Count 212 MPV 10.1 Neut % (Auto) 92.8 H Lymph % (Auto) 0.7 L [place] % (Auto) 6.3 Eos % (Auto) 0.0 Baso % (Auto) 0.2 Neut # (Auto) 14.7 H Lymph # (Auto) 0.1 L [place] # (Auto) 1.0 H Eos # (Auto) 0.0 Baso # (Auto) 0.0 WBC Differential . Differential Comment Auto diff final Sodium 141 Potassium 3.5 Chloride 105 Carbon Dioxide 28.3 Anion Gap 8 BUN 43 H Creatinine 0.69 Estimated GFR 84 L POC Glucose 74 Random Glucose 108 H Calcium 8.7 Phosphorus 2.9 Magnesium 1.9 Total Bilirubin 0.9 AST 21 ALT 20 Alkaline Phosphatase 81 Total Protein 7.0 Albumin 3.8 Imaging: Abdomen/Pelvis CT 06/28/18 00:00 CONCLUSION: 1. Colonic diverticula. 2. Persistent 4.6 cm left adnexal cystic mass. 3. Distended gallbladder. 4. Cortical calcic location seen at the left kidney with some cortical thinning. There are multiple left-sided renal masses likely related to cysts although they're nonspecific on this noncontrast CT examination. Chest CT 06/28/18 00:00 CONCLUSION: 1. Development of moderate bilateral pleural effusions being worse in the right. 2. Areas of consolidation or atelectasis at the posterior lower lungs. Given the effusions is likely represent areas of atelectasis. 3. Consolidation and bronchiectasis in the right upper lung. This was present on the prior exam. It appears to progress. 4. Distended esophagus throughout the chest. Venous Doppler Study 06/29/18 00:00 CONCLUSION: Mild nonocclusive thrombus in the right axillary vein to the brachial vein. Abdomen X-Ray 07/02/18 00:00 CONCLUSION: No dilated bowel loops to suggest ileus. Chest X-Ray 07/03/18 00:00 CONCLUSION: 1. Bilateral perihilar and right lower lobe airspace disease not significant change. 2. Rounded density overlying the left upper lung could be external to patient. Attention to this area on follow-up studies recommended. Head CT 07/04/18 00:00 CONCLUSION: Interval development of multiple lucencies involving the left frontal and parietal lobes not present on the prior study from 6 days ago most likely multifocal areas of infarction possibly embolic episode without any hemorrhage or mass effect. Underlying metastatic disease is not excluded and further characterization with brain MRI with and without contrast is recommended. Findings were discussed with the patient's nurse, Nelsy on 2017 at 21:40 hours at the time of this dictation. Head MRI 07/05/18 00:00 CONCLUSION: 1. Multifocal infarcts as noted above. Given the multiplicity and bilaterality this suggests possible embolic infarcts versus vasculitis. Comparison MRA demonstrated narrowing of the left M2 segment. Head MRA 07/05/18 00:00 CONCLUSION: 1. Decreased caliber of the left M2 segment of the MCA corresponding with the areas of hypoattenuation on comparison CT. Findings are concerning for multifocal acute infarct. Neck MRA 07/05/18 00:00 CONCLUSION: 1. Negative MRA Carotids. Percent stenosis is calculated using the diameter of the stenotic region over the diameter of the normal distal internal carotid artery Objective Remarks: GENERAL: Patient is 72 lying in bed ,Critically ill, intubated sedated SKIN: Warm and dry. HEAD: Normocephalic. EYES: No scleral icterus. No injection or drainage. Anemic ENT: Oral mucosa is dry. Orotracheally intubated NECK: Supple, trachea midline. No JVD or lymphadenopathy. CARDIOVASCULAR: RRR without murmurs, gallops, or rubs. RESPIRATORY: B/l equal air entry GASTROINTESTINAL: Abdomen soft, non-tender, nondistended. MUSCULOSKELETAL: No cyanosis, or edema. Neuro: Awake , right side flaccid. Assessment and Plan - Assessment and Plan Plan: NEURO: Acute metabolic encephalopathy MRI brain 07/05: Multifocal infarcts as noted above. Given the multiplicity and bilaterality this suggests possible embolic infarcts versus vasculitis MRA brain:Decreased caliber of the left M2 segment of the MCA corresponding with the areas of hypoattenuation on comparison CT. Findings are concerning for multifocal acute infarct. MRA neck: Negative Repeat CT brain 07/04: Interval development of multiple lucencies involving the left frontal and parietal lobes not present on the prior study from 6 days ago most likely multifocal areas of infarction possibly embolic episode without any hemorrhage or mass effect. 06/28 CT head negative for acute findings Monitor neuro status. Neuro is following- Dr. Tilley. Place on ASA if ok with heme. RESP: Acute hypoxemic respiratory failure Pulmonary edema Acute lung injury Intubated and placed on mechanical ventilation 06/29/2018 On PRVC RR 12, TV 450, IT:1.0, PEEP:5, FIO2 40% Continue bronchodilators, SBT daily as ike Patient is ahigh risk for reintubation if extubated given her metal status and underlying stroke. CXR 07/03: Bilateral perihilar and right lower lobe airspace disease not significant change. CV: PAF Currently on IV Lasix 20 mg every 12 Monitor HR and BP maintain MAP>65mmHg Echo: The left ventricular systolic function is normal with an estimated ejection fraction in the range of 55-60%. Doppler parameters are consistent with impaired left ventricular relaxtion (grade 1 diastolic dysfunction). GI: C. difficile colitis Ileus Squamous cell carcinoma of the anus Moderate protein energy malnutrition Continue Jevity 1.5 with goal rate 55ml/hr per nut. recommendations. KUB abdomen 07/02: No dilated bowel loops to suggest ileus. CRS is following- Dr. Coelho FEN/RENAL: GREY Hypokalemia Monitor renal function, I/O's, electrolyte replacement protocol. On Lasix 20mg BID, ID: Pseudomonas bacteremia 06/25 Severe sepsis with probable GI source C Diff Continue abx- Vancomycin 500 mg p.o. every 6 hours and IV Flagyl for C. difficile,Cefepime Follow up on BC from 07/06 Blood culture growing Pseudomonas 06/25. Repeat C-diff PCR negative on 07/04 Removed PICC 06/26. Wound care consult for sacral ulcer HEME: Squamous cell carcinoma anorectal Pancytopenia SCC anus - s/p chemo completed 06/13. Radiation therapy on hold per Dr. Concepcion. Monitor CBC, coags. ENDO: Hyperglycemia On SSI medium scale with accuchecks for glycemic control On Synthroid 50 mcg daily. TSH:0.98 on 06/27 PROPH: SCD/Lovenox 40mg daily for DVT prophylaxis. Protonix 40mg Q12 for GI prophylaxis Doppler US RUE 06/29: Mild nonocclusive thrombus in the right axillary vein to the brachial vein ACCESS: Removed right upper extremity PICC 06/26. L IJ CVL placed 06/26 Palliative care following Full code CCT 35 mins excluding procedures
--- NOTE | 2018-07-06 10:30 | P.PNONC ---
Subjective Interval history: Afebrile. Patient remains intubated, currently on CPAP. She is awake with eyes open. She tracks with eyes however does not follow commands. She intermittently moves her left extremities, however not to command. Right side remains flaccid. Objective Vital Signs/Intake & Output: Vital Signs 07/05/18 11:00 07/05/18 11:48 07/05/18 12:00 Temperature 98.4 F Pulse Rate 69 81 Respiratory Rate 15 18 22 Blood Pressure 135/69 Pulse Oximetry 98 100 07/05/18 16:00 07/05/18 16:17 07/05/18 17:00 Temperature 98.6 F Pulse Rate 88 94 H Respiratory Rate 17 17 21 Blood Pressure 124/75 135/76 Pulse Oximetry 99 98 07/05/18 18:00 07/05/18 19:00 07/05/18 20:00 Temperature 98.2 F Pulse Rate 92 H 91 H 91 H Respiratory Rate 19 12 14 Blood Pressure 133/78 123/65 117/72 Pulse Oximetry 100 07/05/18 20:05 07/05/18 20:07 07/05/18 21:00 Temperature Pulse Rate 85 84 Respiratory Rate 11 L 11 L 13 Blood Pressure 132/67 Pulse Oximetry 100 07/05/18 22:00 07/05/18 23:00 07/05/18 23:33 Temperature Pulse Rate 88 95 H Respiratory Rate 13 13 15 Blood Pressure 121/67 122/64 Pulse Oximetry 100 100 100 07/06/18 00:00 07/06/18 01:00 07/06/18 02:00 Temperature 98.6 F Pulse Rate 80 93 H 96 H Respiratory Rate 9 L 12 9 L Blood Pressure 126/60 127/70 126/73 Pulse Oximetry 100 100 100 07/06/18 03:00 07/06/18 03:55 07/06/18 04:00 Temperature 98.6 F Pulse Rate 94 H 95 H Respiratory Rate 13 10 L 20 Blood Pressure 120/66 132/78 Pulse Oximetry 98 98 100 07/06/18 08:00 07/06/18 08:35 Temperature 99.0 F Pulse Rate 83 Respiratory Rate 9 L 11 L Blood Pressure 112/59 L Pulse Oximetry 96 97 Intake & Output 07/05/18 07/06/18 07/06/18 18:59 06:59 18:59 Intake Total 956 / 956 1023 / 1023 Output Total 1750 / 1750 1250 / 1250 Balance -794 / -794 -227 / -227 Weight 52.6 kg Intake: IV 887 / 887 600 / 600 Flexbumin 25% Inj 100 ML @ 60 200 / 200 mls/hr IV.SIG Q12H [facility] Rx#: [id number] Maxipime Inj 2,000 MG In NS Inj 100 / 100 200 / 200 100 ML @ 200 mls/hr IV.SIG Q8H [facility] Rx#:[id number] Intralipid 20% Inj 250 ML @ 31. 250 / 250 25 mls/hr IV.SIG Q24H [facility] Rx#: [id number] KCl 20 mEq Premix Inj 20 meq In 200 / 200 100 ml @ 50 mls/hr IV.SIG Q2H PRN Rx#:[id number] KCl 40 mEq Premix Inj 40 meq In 100 / 100 100 ml @ 25 mls/hr IV.SIG Q2H PRN Rx#:[id number] Sodium Chloride 23.4% Inj 5.5 137 / 137 MEQ Sodium Acetate Inj 59 MEQ KCl Inj 40 MEQ Magnesium Chloride Inj 10 MEQ Calcium Chloride Inj 9 MEQ Sodium Phosphate Inj 40 MEQ MVI-12 Inj 10 ML Folvite Inj 1 MG In Clinimix 5%/D20W Inj 2,000 ML @ 42 mls/hr IV.SIG Q24H [facility] Rx#: [id number] Flagyl 500 MG Inj 100 ML @ 100 100 / 100 200 / 200 mls/hr IV.SIG Q8H [facility] Rx#: [id number] Oral 0 / 0 Tube Feeding 69 / 69 303 / 303 Tube Irrigant 60 / 60 Other 60 / 60 Output: Urine Amount (Catheter) 1750 / 1750 1250 / 1250 Indwelling Urethral Catheter 1750 / 1750 1250 / 1250 Other: Other Intake Source Saline Solution Date of Last Bowel Movement 07/05/18 07/05/18 07/05/18 # Bowel Movements 1 Result Diagrams: 07/06/18 04:02 07/06/18 04:02 Laboratory Results: Laboratory Results - last 24 hr 07/05/18 07/05/18 07/05/18 11:30 16:40 19:43 WBC RBC Hgb Hct MCV MCH MCHC RDW Plt Count MPV Neut % (Auto) Lymph % (Auto) [place] % (Auto) Eos % (Auto) Baso % (Auto) Neut # (Auto) Lymph # (Auto) [place] # (Auto) Eos # (Auto) Baso # (Auto) WBC Differential Differential Comment Sodium Potassium Chloride Carbon Dioxide Anion Gap BUN Creatinine Estimated GFR POC Glucose 75 75 86 Random Glucose Calcium Phosphorus Magnesium Total Bilirubin AST ALT Alkaline Phosphatase Total Protein Albumin 07/06/18 07/06/18 07/06/18 00:18 00:20 03:55 WBC RBC Hgb Hct MCV MCH MCHC RDW Plt Count MPV Neut % (Auto) Lymph % (Auto) [place] % (Auto) Eos % (Auto) Baso % (Auto) Neut # (Auto) Lymph # (Auto) [place] # (Auto) Eos # (Auto) Baso # (Auto) WBC Differential Differential Comment Sodium Potassium 3.6 Chloride Carbon Dioxide Anion Gap BUN Creatinine Estimated GFR POC Glucose 86 150 H Random Glucose Calcium Phosphorus Magnesium Total Bilirubin AST ALT Alkaline Phosphatase Total Protein Albumin 07/06/18 07/06/18 07/06/18 04:02 04:02 07:50 WBC 15.9 H RBC 4.13 Hgb 10.6 L Hct 32.6 L MCV 79.1 L MCH 25.7 L MCHC 32.5 RDW 19.8 H Plt Count 212 MPV 10.1 Neut % (Auto) 92.8 H Lymph % (Auto) 0.7 L [place] % (Auto) 6.3 Eos % (Auto) 0.0 Baso % (Auto) 0.2 Neut # (Auto) 14.7 H Lymph # (Auto) 0.1 L [place] # (Auto) 1.0 H Eos # (Auto) 0.0 Baso # (Auto) 0.0 WBC Differential . Differential Comment Auto diff final Sodium 141 Potassium 3.5 Chloride 105 Carbon Dioxide 28.3 Anion Gap 8 BUN 43 H Creatinine 0.69 Estimated GFR 84 L POC Glucose 74 Random Glucose 108 H Calcium 8.7 Phosphorus 2.9 Magnesium 1.9 Total Bilirubin 0.9 AST 21 ALT 20 Alkaline Phosphatase 81 Total Protein 7.0 Albumin 3.8 Imaging Studies: Impressions Head MRI 07/05/18 00:00 CONCLUSION: 1. Multifocal infarcts as noted above. Given the multiplicity and bilaterality this suggests possible embolic infarcts versus vasculitis. Comparison MRA demonstrated narrowing of the left M2 segment. Head MRA 07/05/18 00:00 CONCLUSION: 1. Decreased caliber of the left M2 segment of the MCA corresponding with the areas of hypoattenuation on comparison CT. Findings are concerning for multifocal acute infarct. Neck MRA 07/05/18 00:00 CONCLUSION: 1. Negative MRA Carotids. Percent stenosis is calculated using the diameter of the stenotic region over the diameter of the normal distal internal carotid artery Medications: Active Medications Generic Name Dose Route Start Last Admin Trade Name Freq PRN Reason Stop Dose Admin Albuterol 1 ampul 06/27/18 10:01 07/05/18 20:07 Duoneb Neb (Prn) NEB 1 ampul Q2HR NEB PRN Administration DYSPNEA Chlorhexidine Gluconate 15 ml 06/29/18 20:00 07/06/18 08:01 Peridex 0.12% Oral Kit OROPHARYNG 15 ml BID@0800,2000 [facility] Administration Dextrose 50 ml 07/01/18 08:03 07/01/18 21:10 D50w Vial IV.PUSH 50 ml UNSCH PRN Administration PER HYPOGLYCEMIA PROTOCOL Enoxaparin Sodium 40 mg 07/06/18 09:00 07/06/18 08:01 Lovenox Inj SQ 40 mg DAILY [facility]LO Administration Furosemide 20 mg 06/28/18 18:00 07/06/18 08:01 Lasix Inj IV.PUSH 20 mg BID@0900,1800 [facility]LO Administration Hydromorphone HCl 0.5 mg 06/26/18 14:00 07/04/18 06:22 Dilaudid Pf Inj IV.PUSH 0.5 mg Q3H PRN Administration PAIN 3-10 Potassium Chloride 40 meq in 100 mls @ 25 mls/hr 06/28/18 13:34 07/05/18 11: 30 Kcl 40 Meq Premix Inj IV.SIG Infused Q2H PRN Infusion For Potassium 2.8 - 3.2 mEq/L Potassium Chloride 20 meq in 100 mls @ 50 mls/hr 06/28/18 13:34 07/05/18 13: 30 Kcl 20 Meq Premix Inj IV.SIG Infused Q2H PRN Infusion For Potassium 3.3 - 3.5 mEq/L Potassium Chloride 20 meq in 100 mls @ 50 mls/hr 06/28/18 13:34 07/04/18 14: 00 Kcl 20 Meq Premix Inj IV.SIG Infused Q2H PRN Infusion For Potassium 2.8 - 3.2 mEq/L Potassium Phosphate 30 mmol/ 260 mls @ 42 mls/hr 06/28/18 13:34 06/29/18 03: 13 Sodium Chloride IV.SIG Infused UNSCH PRN Infusion SEE LABEL COMMENTS Albumin Human 100 mls @ 60 mls/hr 06/28/18 16:00 07/06/18 05:00 Flexbumin 25% Inj IV.SIG Infused Q12H [facility] Infusion Metronidazole/Sodium Chloride 100 mls @ 100 mls/hr 06/28/18 17:00 07/06/18 08 :01 Flagyl 500 Mg Inj IV.SIG 100 mls/hr Q8H [facility] Administration Cefepime HCl 2,000 mg/ Sodium 100 mls @ 200 mls/hr 07/03/18 18:00 07/06/18 10 :03 Chloride IV.SIG 200 mls/hr Q8H [facility] Administration Insulin Human Regular 0 units 07/01/18 12:00 07/06/18 08:02 Novolin R Correctional Sugar Inj SQ Not Given Q4HR [facility] Protocol Levothyroxine Sodium 50 mcg 06/26/18 06:00 07/06/18 05:54 Synthroid PO 50 mcg DAILY@0600 [facility] Administration Miscellaneous Medication 1 each 06/29/18 16:00 07/06/18 04:46 OROPHARYNG 1 each 0000,0400,1200,1600 [facility] Administration Ondansetron HCl 4 mg 06/26/18 04:31 07/04/18 06:13 Zofran Inj IV.PUSH 4 mg Q6H PRN Administration NAUSEA OR VOMITING Pantoprazole Sodium 40 mg 06/25/18 16:00 07/06/18 08:01 Protonix Inj IV.PUSH 40 mg Q12HR [facility] Administration Sodium Chloride 2 ml 06/27/18 21:00 07/06/18 08:02 Ns Flush IV.FLUSH 2 ml BID [facility]LO Administration Sodium Chloride 2 ml 06/27/18 10:30 06/28/18 06:02 Ns Flush IV.FLUSH 2 ml PRN PRN Administration FLUSH AFTER USING IV ACCESS Vancomycin HCl 500 mg 06/28/18 16:16 07/06/18 08:01 Vancomycin Po PO 500 mg QID [facility]LO Administration Objective Remarks: GENERAL: Critically ill appearing female patient. Intubated. Alert, eyes open , tracking. Not following commands or answering questions. SKIN: Pale, warm and dry. HEAD: Normocephalic. EYES: No scleral icterus. No injection or drainage. NECK: Supple, trachea midline. CARDIOVASCULAR: +S1/S2.Sinus rhythm on monitor. RESPIRATORY: Breath sounds equal bilaterally. Intubated, on CPAP. GASTROINTESTINAL: Abdomen soft, non-tender, nondistended. Tube feed via NG tube. EXTREMITIES: No cyanosis. Nonpitting edema RUE, RLE. Fingers pink and warm, faint purplish hue to bilateral toes, feet warm. NEUROLOGICAL: Intubated. Eyes opened and tracking. Not following commands. Moving left side only, not to command. Assessment/Plan - Plan Ms. 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 She had received 5 days of chemotherapy, completed on 06/13/2018. She is currently receiving radiation therapy which started on she was admitted for acute renal failure related to dehydration, intractable diarrhea from radiation chemotherapy. Plan: 1. Remains intubated, currently on CPAP. She is alert with eyes open, does not follow commands. Moves left side only. Right flaccid. 2. CVA, right side flaccid. Neurology consulted, Dr Tilley recommends baby asprin, possible anticoagulant if any further episodes of afib. Her platelets have recovered, okay to start asa 81 mg. 3. Nonocclusive thrombus from previous PICC line. 4. Thrombocytopenia-resolved, Platelets 212,000 today. Now on lovenox 40 mg daily DVT prophylaxis. 5. History of Raynauds syndrome, all fingers pink and warm to the touch, slight purplish hue to bilateral toes. Continue to monitor. 6. Sepsis, UTI and C. difficile. Continues on antibiotics per infectious disease. 7. Continue supportive care. - Attending Statement The exam, history, and the medical decision-making described in the above note were completed with the assistance of the mid-level provider. I reviewed and agree with the findings presented. I attest that I had a [id number] encounter with the patient on the same day, and personally performed and documented my assessment and findings in the medical record. Patient is awake and able to track with her eye. However she is not following command. Right- sided paralysis has not changed. She was started on Lovenox for DVT prophylaxis. She was also started on baby aspirin per neurology recommendation.
[2018-07-06] MEDS: Potassium Chlor 40 mEq Premix 40 MEQ/100 ML PIGGYBACK IV.SIG PRN (10:38)
--- NOTE | 2018-07-06 13:18 | P.PN ---
Subjective Interval history: no new changes reported Physical Exam Vital signs: Vital Signs 07/05/18 16:00 07/05/18 16:17 07/05/18 17:00 Temperature 98.6 F Pulse Rate 88 94 H Respiratory Rate 17 17 21 Blood Pressure 124/75 135/76 Pulse Oximetry 99 98 07/05/18 18:00 07/05/18 19:00 07/05/18 20:00 Temperature 98.2 F Pulse Rate 92 H 91 H 91 H Respiratory Rate 19 12 14 Blood Pressure 133/78 123/65 117/72 Pulse Oximetry 100 07/05/18 20:05 07/05/18 20:07 07/05/18 21:00 Temperature Pulse Rate 85 84 Respiratory Rate 11 L 11 L 13 Blood Pressure 132/67 Pulse Oximetry 100 07/05/18 22:00 07/05/18 23:00 07/05/18 23:33 Temperature Pulse Rate 88 95 H Respiratory Rate 13 13 15 Blood Pressure 121/67 122/64 Pulse Oximetry 100 100 100 07/06/18 00:00 07/06/18 01:00 07/06/18 02:00 Temperature 98.6 F Pulse Rate 80 93 H 96 H Respiratory Rate 9 L 12 9 L Blood Pressure 126/60 127/70 126/73 Pulse Oximetry 100 100 100 07/06/18 03:00 07/06/18 03:55 07/06/18 04:00 Temperature 98.6 F Pulse Rate 94 H 95 H Respiratory Rate 13 10 L 20 Blood Pressure 120/66 132/78 Pulse Oximetry 98 98 100 07/06/18 08:00 07/06/18 08:35 07/06/18 12:00 Temperature 99.0 F 98.7 F Pulse Rate 83 97 H Respiratory Rate 9 L 11 L 28 H Blood Pressure 112/59 L 121/69 Pulse Oximetry 96 97 97 07/06/18 12:45 Temperature Pulse Rate Respiratory Rate 12 Blood Pressure Pulse Oximetry 96 Intake & Output 07/05/18 07/06/18 07/06/18 18:59 06:59 18:59 Intake Total 956 / 956 1023 / 1023 200 / 200 Output Total 1750 / 1750 1250 / 1250 Balance -794 / -794 -227 / -227 200 / 200 Weight 52.6 kg Intake: IV 887 / 887 600 / 600 200 / 200 Flexbumin 25% Inj 100 ML @ 60 200 / 200 mls/hr IV.SIG Q12H [facility] Rx#: [id number] Maxipime Inj 2,000 MG In NS Inj 100 / 100 200 / 200 100 / 100 100 ML @ 200 mls/hr IV.SIG Q8H [facility]LO Rx#:[id number] Intralipid 20% Inj 250 ML @ 31. 250 / 250 25 mls/hr IV.SIG Q24H PABLO Rx#: [id number] KCl 20 mEq Premix Inj 20 meq In 200 / 200 100 ml @ 50 mls/hr IV.SIG Q2H PRN Rx#:[id number] KCl 40 mEq Premix Inj 40 meq In 100 / 100 100 / 100 100 ml @ 25 mls/hr IV.SIG Q2H PRN Rx#:[id number] Sodium Chloride 23.4% Inj 5.5 137 / 137 MEQ Sodium Acetate Inj 59 MEQ KCl Inj 40 MEQ Magnesium Chloride Inj 10 MEQ Calcium Chloride Inj 9 MEQ Sodium Phosphate Inj 40 MEQ MVI-12 Inj 10 ML Folvite Inj 1 MG In Clinimix 5%/D20W Inj 2,000 ML @ 42 mls/hr IV.SIG Q24H PABLO Rx#: [id number] Flagyl 500 MG Inj 100 ML @ 100 100 / 100 200 / 200 mls/hr IV.SIG Q8H [facility] Rx#: [id number] Oral 0 / 0 Tube Feeding 69 / 69 303 / 303 Tube Irrigant 60 / 60 Other 60 / 60 Output: Urine Amount (Catheter) 1750 / 1750 1250 / 1250 Indwelling Urethral Catheter 1750 / 1750 1250 / 1250 Other: Other Intake Source Saline Solution Date of Last Bowel Movement 07/05/18 07/05/18 07/05/18 # Bowel Movements 1 Narrative: intubated looks around room not tracking me not following commands right hemiparesis - Urinary Catheter Management Indwelling Urethral Catheter Cath placed during this visit: yes Reason for continuing: Severe pressure ulcer/wound Insertion date: 06/27/18 Insertion time: 11:19 Results - Labs CBC & Chem 7: 07/06/18 04:02 07/06/18 04:02 Laboratory Results - last 24 hr 07/05/18 07/05/18 07/06/18 16:40 19:43 00:18 WBC RBC Hgb Hct MCV MCH MCHC RDW Plt Count MPV Neut % (Auto) Lymph % (Auto) [place] % (Auto) Eos % (Auto) Baso % (Auto) Neut # (Auto) Lymph # (Auto) [place] # (Auto) Eos # (Auto) Baso # (Auto) WBC Differential Differential Comment Sodium Potassium Chloride Carbon Dioxide Anion Gap BUN Creatinine Estimated GFR POC Glucose 75 86 86 Random Glucose Calcium Phosphorus Magnesium Total Bilirubin AST ALT Alkaline Phosphatase Total Protein Albumin 07/06/18 07/06/18 07/06/18 00:20 03:55 04:02 WBC 15.9 H RBC 4.13 Hgb 10.6 L Hct 32.6 L MCV 79.1 L MCH 25.7 L MCHC 32.5 RDW 19.8 H Plt Count 212 MPV 10.1 Neut % (Auto) 92.8 H Lymph % (Auto) 0.7 L [place] % (Auto) 6.3 Eos % (Auto) 0.0 Baso % (Auto) 0.2 Neut # (Auto) 14.7 H Lymph # (Auto) 0.1 L [place] # (Auto) 1.0 H Eos # (Auto) 0.0 Baso # (Auto) 0.0 WBC Differential . Differential Comment Auto diff final Sodium Potassium 3.6 Chloride Carbon Dioxide Anion Gap BUN Creatinine Estimated GFR POC Glucose 150 H Random Glucose Calcium Phosphorus Magnesium Total Bilirubin AST ALT Alkaline Phosphatase Total Protein Albumin 07/06/18 07/06/18 07/06/18 04:02 07:50 11:12 WBC RBC Hgb Hct MCV MCH MCHC RDW Plt Count MPV Neut % (Auto) Lymph % (Auto) [place] % (Auto) Eos % (Auto) Baso % (Auto) Neut # (Auto) Lymph # (Auto) [place] # (Auto) Eos # (Auto) Baso # (Auto) WBC Differential Differential Comment Sodium 141 Potassium 3.5 Chloride 105 Carbon Dioxide 28.3 Anion Gap 8 BUN 43 H Creatinine 0.69 Estimated GFR 84 L POC Glucose 74 107 Random Glucose 108 H Calcium 8.7 Phosphorus 2.9 Magnesium 1.9 Total Bilirubin 0.9 AST 21 ALT 20 Alkaline Phosphatase 81 Total Protein 7.0 Albumin 3.8 Assessment and Plan - Assessment (1) Stroke Code(s): I63.9 - Cerebral infarction, unspecified Status: Acute - Plan possibly embolic start for now baby asa qd will need pt-ot-st ,rehab cont current care and per families wishes scds and lovenox.
[2018-07-07] MEDS: Insulin NovoLIN Regular Correctional Sugar Inj SQ SCH ×4 (00:14→13:00)
[2018-07-07] MEDS: Oral Hygiene Kit OROPHARYNG SCH ×4 (01:24→17:40)
[2018-07-07] MEDS: Albumin Human 25% Inj 100 ML IV.SIG SCH (04:12)
[2018-07-07 04:53] LABS: Baso % (Auto) 0.2 % (0.0-2.0); Hematocrit 33.2 % (35.0-46.0); Hemoglobin 10.7 gm/dL (11.6-15.3); Lymph # (Auto) 0.1 th/mm3 (1.0-4.8); Mean Corpuscular HGB Conc 32.1 % (32.0-36.0); Mean Corpuscular Hemoglobin 25.6 pg (27.0-34.0); Mean Corpuscular Volume 79.9 fL (80.0-100.0); Mean Platelet Volume 9.7 fL (7.0-11.0); Mono # (Auto) 1.1 th/mm3 (0.0-0.9); Mono % (Auto) 8.1 % (0.0-8.0); Neut # (Auto) 12.6 th/mm3 (1.8-7.7); Neut % (Auto) 90.7 % (16.0-70.0); Platelet Count 290 th/mm3 (150-450); Red Blood Count 4.16 mil/mm3 (4.00-5.30); Red Cell Distribution Width 20.5 % (11.6-17.2); White Blood Count 13.8 th/mm3 (4.0-11.0)
[2018-07-07] MEDS: Levothyroxine 50 MCG Tablet PO SCH (05:03)
[2018-07-07 05:25] LABS: Albumin 4.1 g/dL (3.4-5.0); Anion Gap 7 meq/L (5-15); Aspartate Aminotransferase 17 U/L (15-37); Blood Urea Nitrogen 48 mg/dL (7-18); Carbon Dioxide 28.9 meq/L (21.0-32.0); Chloride 108 meq/L (98-107); Glomerular Filtration Rate 84 mL/min (>89); Glucose,Random 130 mg/dL (74-106); Potassium 3.7 meq/L (3.5-5.1); Sodium 144 meq/L (136-145)
[2018-07-07 05:30] LABS: Alanine Aminotransferase 19 U/L (10-53); Alkaline Phosphatase 84 U/L (45-117); Phosphorus 2.5 mg/dL (2.5-4.9); Total Protein 7.4 g/dL (6.4-8.2)
--- NOTE | 2018-07-07 08:37 | P.PNCC ---
Subjective Subjective Remarks/Hospital Course: 72-year-old female with past medical history of anorectal squamous cell carcinoma, mixed connective tissue disease (SLE, Reynaud's, Polymyositis), remote cervical cancer status post hysterectomy, hypothyroid . She originally developed anal pain and bleeding in January of 2018. She was referred to Dr. Coelho who performed biopsy of anal mass on 04/25/18 which demonstrated invasive squamous cell carcinoma. Outpatient PET reportedly showed no local or distant metastatic disease. She has been undergoing radiation therapy under the care of Dr Concepcion. Concurrent chemotherapy is planned for week 1 and 5 of radiation; and she completed first chemo cycle 06/13/18. She has reportedly been having loose watery stools for several days, difficult to determine exact time of onset. She has also had abdominal pain. When she presented for radiation treatment on 06/25, she was weak and hypotensive so she was sent to the ED. She was pancytopenic with ANC 768. CT abd/pelvis showed fluid filled small bowel c/ w partial SBO or ileus. She was admitted to hospitalist service. Blood cultures were obtained 09/25 which have now resulted + pseudomonas in 09/26 bottles. She was started on cefepime 2 gram IV and vancomycin per hematology. Tmax was 101.2 Oven Operator consult has been requested. She has a RUE PICC placed 06/09 which does not have overt clinical signs of infection, but will be removed. 06/27 Patient is lethargic on Amio drip ( HR now controlled) Afebrile. 06/28 patient lying on bed very lethargic remains on amiodarone infusion. Appears very critical. WBC count is improved to 7.8, platelet count of 35. BUN /creatinine further elevated at 66/1.36. Patient not to be weaker on the right upper and lower extremity-I do not see any history of CVA. Will check CT of the head stat. Patient is not a candidate for TPA due to severe thrombocytopenia, so will not initiate stroke alert. Breathing slightly labored 06/29: Clinically deteriorating very lethargic tachypneic. ABG shows significant hypoxia. Chest x-ray shows worsening bilateral infiltrates/edema. I had discussed with daughters yesterday they wanted to continue full code, patient is encephalopathy again unable to make any decisions at this time. Give additional 20 mg of IV Lasix and continue scheduled 20 mg twice daily. If not improving in the next 45-60 minutes will need endotracheal intubation 06/30: Severely septic lady who is intubated for severe respiratory failure on . Likely has acute lung injury from severe sepsis. FiO2 remains high at 65% to maintain sat above 90%. Chest x-ray is pending at this time WBC count 16 , sodium is 150, BUN 67 creatinine 1.3. Urine output adequate with Lasix 07/01 Patient remains intubated and sedated with Versed drip 3mg/hr, on Amio drip and TPN. s/p 1u PLT pheresis yesterday PLT count 12 this morning. 07/02 Patient is sedated with Versed and intubated. Afebrile, on Amio drip.s/p 1u PLT transfusion yesterday 07/03 No events overnight. Off sedation. Tolerated CPAP x 6 hrs yesterday. Afebrile. 07/04 No events overnight. Remains off sedation more awake. Afebrile. 07/05 Patient remains intubated tolerated CPAP all day yesterday. Not moving right side. CT brain yesterday interval development of multiple lucencies involving the left frontal and parietal lobes not present on the prior study from 6 days ago most likely multifocal areas of infarction possibly embolic episode without any hemorrhage or mass effect. Underlying metastatic disease is not excluded. 07/06 Patient remains intubated on CPAP with PS 15, PEEP:5 and FIO2: 40%. Afebrile. 10/oeventsovernight. On CPAP overnight. Afebrile Objective Vital Signs / I&O: Vital Signs 07/06/18 08:35 07/06/18 12:00 07/06/18 12:45 Temperature 98.7 F Pulse Rate 97 H Respiratory Rate 11 L 28 H 12 Blood Pressure 121/69 Pulse Oximetry 97 97 96 07/06/18 16:00 07/06/18 20:00 07/06/18 20:33 Temperature 98.9 F 99.1 F Pulse Rate 94 H 102 H Respiratory Rate 19 19 16 Blood Pressure 119/65 119/69 Pulse Oximetry 95 98 99 07/06/18 22:00 07/06/18 23:47 07/07/18 00:00 Temperature 99.3 F Pulse Rate 101 H 94 H Respiratory Rate 21 16 Blood Pressure 122/63 Pulse Oximetry 98 99 07/07/18 02:00 07/07/18 04:00 07/07/18 04:27 Temperature 99 F Pulse Rate 104 H 107 H Respiratory Rate 24 17 Blood Pressure 127/68 Pulse Oximetry 96 99 07/07/18 06:00 07/07/18 07:57 Temperature Pulse Rate 98 H Respiratory Rate 24 Blood Pressure Pulse Oximetry 94 L Intake & Output 07/06/18 07/07/18 07/07/18 18:59 06:59 18:59 Intake Total 786 / 786 1145 / 1145 Output Total 1500 / 1500 1300 / 1300 Balance -714 / -714 -155 / -155 Weight 47.5 kg Intake: IV 300 / 300 600 / 600 Flexbumin 25% Inj 100 ML @ 60 200 / 200 mls/hr IV.SIG Q12H [facility] Rx#: [id number] Maxipime Inj 2,000 MG In NS Inj 100 / 100 200 / 200 100 ML @ 200 mls/hr IV.SIG Q8H [facility] Rx#:[id number] KCl 40 mEq Premix Inj 40 meq In 100 / 100 100 ml @ 25 mls/hr IV.SIG Q2H PRN Rx#:[id number] Flagyl 500 MG Inj 100 ML @ 100 100 / 100 200 / 200 mls/hr IV.SIG Q8H [facility] Rx#: [id number] Oral 0 / 0 Tube Feeding 436 / 436 545 / 545 Tube Irrigant 50 / 50 Output: Urine Amount (Catheter) 1500 / 1500 1300 / 1300 Indwelling Urethral Catheter 1500 / 1500 1300 / 1300 Other: Date of Last Bowel Movement 07/06/18 07/06/18 # Bowel Movements 1 Result Diagrams: 07/07/18 04:20 07/07/18 04:20 Other Results: Laboratory Results - last 12 hr 07/06/18 07/06/18 07/07/18 20:44 23:45 04:11 WBC RBC Hgb Hct MCV MCH MCHC RDW Plt Count MPV Neut % (Auto) Lymph % (Auto) [place] % (Auto) Eos % (Auto) Baso % (Auto) Neut # (Auto) Lymph # (Auto) [place] # (Auto) Eos # (Auto) Baso # (Auto) WBC Differential Differential Comment Sodium Potassium Chloride Carbon Dioxide Anion Gap BUN Creatinine Estimated GFR POC Glucose 117 H 130 H 127 H Random Glucose Calcium Phosphorus Magnesium Total Bilirubin AST ALT Alkaline Phosphatase Total Protein Albumin 07/07/18 07/07/18 04:20 04:20 WBC 13.8 H RBC 4.16 Hgb 10.7 L Hct 33.2 L MCV 79.9 L MCH 25.6 L MCHC 32.1 RDW 20.5 H Plt Count 290 D MPV 9.7 Neut % (Auto) 90.7 H Lymph % (Auto) 1.0 L [place] % (Auto) 8.1 H Eos % (Auto) 0.0 Baso % (Auto) 0.2 Neut # (Auto) 12.6 H Lymph # (Auto) 0.1 L [place] # (Auto) 1.1 H Eos # (Auto) 0.0 Baso # (Auto) 0.0 WBC Differential . Differential Comment Auto diff final Sodium 144 Potassium 3.7 Chloride 108 H Carbon Dioxide 28.9 Anion Gap 7 BUN 48 H Creatinine 0.69 Estimated GFR 84 L POC Glucose Random Glucose 130 H Calcium 9.0 Phosphorus 2.5 Magnesium 2.0 Total Bilirubin 0.8 AST 17 ALT 19 Alkaline Phosphatase 84 Total Protein 7.4 Albumin 4.1 Imaging: Abdomen/Pelvis CT 06/28/18 00:00 CONCLUSION: 1. Colonic diverticula. 2. Persistent 4.6 cm left adnexal cystic mass. 3. Distended gallbladder. 4. Cortical calcic location seen at the left kidney with some cortical thinning. There are multiple left-sided renal masses likely related to cysts although they're nonspecific on this noncontrast CT examination. Chest CT 06/28/18 00:00 CONCLUSION: 1. Development of moderate bilateral pleural effusions being worse in the right. 2. Areas of consolidation or atelectasis at the posterior lower lungs. Given the effusions is likely represent areas of atelectasis. 3. Consolidation and bronchiectasis in the right upper lung. This was present on the prior exam. It appears to progress. 4. Distended esophagus throughout the chest. Venous Doppler Study 06/29/18 00:00 CONCLUSION: Mild nonocclusive thrombus in the right axillary vein to the brachial vein. Abdomen X-Ray 07/02/18 00:00 CONCLUSION: No dilated bowel loops to suggest ileus. Chest X-Ray 07/03/18 00:00 CONCLUSION: 1. Bilateral perihilar and right lower lobe airspace disease not significant change. 2. Rounded density overlying the left upper lung could be external to patient. Attention to this area on follow-up studies recommended. Head CT 07/04/18 00:00 CONCLUSION: Interval development of multiple lucencies involving the left frontal and parietal lobes not present on the prior study from 6 days ago most likely multifocal areas of infarction possibly embolic episode without any hemorrhage or mass effect. Underlying metastatic disease is not excluded and further characterization with brain MRI with and without contrast is recommended. Findings were discussed with the patient's nurse, Nelsy on 2017 at 21:40 hours at the time of this dictation. Head MRI 07/05/18 00:00 CONCLUSION: 1. Multifocal infarcts as noted above. Given the multiplicity and bilaterality this suggests possible embolic infarcts versus vasculitis. Comparison MRA demonstrated narrowing of the left M2 segment. Head MRA 07/05/18 00:00 CONCLUSION: 1. Decreased caliber of the left M2 segment of the MCA corresponding with the areas of hypoattenuation on comparison CT. Findings are concerning for multifocal acute infarct. Neck MRA 07/05/18 00:00 CONCLUSION: 1. Negative MRA Carotids. Percent stenosis is calculated using the diameter of the stenotic region over the diameter of the normal distal internal carotid artery Objective Remarks: GENERAL: Patient is 72 lying in bed ,Critically ill, intubated sedated SKIN: Warm and dry. HEAD: Normocephalic. EYES: No scleral icterus. No injection or drainage. Anemic ENT: Oral mucosa is dry. Orotracheally intubated NECK: Supple, trachea midline. No JVD or lymphadenopathy. CARDIOVASCULAR: RRR without murmurs, gallops, or rubs. RESPIRATORY: B/l equal air entry GASTROINTESTINAL: Abdomen soft, non-tender, nondistended. MUSCULOSKELETAL: No cyanosis, or edema. Neuro: Awake , right side flaccid. Assessment and Plan - Assessment and Plan Plan: NEURO: Acute metabolic encephalopathy MRI brain 07/05: Multifocal infarcts as noted above. Given the multiplicity and bilaterality this suggests possible embolic infarcts versus vasculitis MRA brain:Decreased caliber of the left M2 segment of the MCA corresponding with the areas of hypoattenuation on comparison CT. Findings are concerning for multifocal acute infarct. MRA neck: Negative Repeat CT brain 07/04: Interval development of multiple lucencies involving the left frontal and parietal lobes not present on the prior study from 6 days ago most likely multifocal areas of infarction possibly embolic episode without any hemorrhage or mass effect. 06/28 CT head negative for acute findings Monitor neuro status. Neuro is following- Dr. Tilley. On ASA 81mg daily RESP: Acute hypoxemic respiratory failure Pulmonary edema Acute lung injury Intubated and placed on mechanical ventilation 06/29/2018 On PRVC RR 12, TV 450, IT:1.0, PEEP:5, FIO2 40% Continue bronchodilators, SBT daily as ike Patient is ahigh risk for reintubation if extubated given her metal status and underlying stroke. CXR 07/03: Bilateral perihilar and right lower lobe airspace disease not significant change. CV: PAF Currently on IV Lasix 20 mg every 12 Monitor HR and BP maintain MAP>65mmHg Echo: The left ventricular systolic function is normal with an estimated ejection fraction in the range of 55-60%. Doppler parameters are consistent with impaired left ventricular relaxtion (grade 1 diastolic dysfunction). GI: C. difficile colitis Ileus Squamous cell carcinoma of the anus Moderate protein energy malnutrition Continue Jevity 1.5 with goal rate 55ml/hr per nut. recommendations. KUB abdomen 07/02: No dilated bowel loops to suggest ileus. CRS is following- Dr. Coelho FEN/RENAL: GREY Hypokalemia Monitor renal function, I/O's, electrolyte replacement protocol. On Lasix 20mg BID, ID: Pseudomonas bacteremia 06/25 Severe sepsis with probable GI source C Diff Continue abx- Vancomycin 500 mg p.o. every 6 hours and IV Flagyl for C. difficile,Cefepime Follow up on BC from 07/06 Blood culture growing Pseudomonas 06/25. Repeat C-diff PCR negative on 07/04 Removed PICC 06/26. Wound care consult for sacral ulcer HEME: Squamous cell carcinoma anorectal Pancytopenia SCC anus - s/p chemo completed 06/13. Radiation therapy on hold per Dr. Concepcion. Monitor CBC, coags. ENDO: Hyperglycemia On SSI medium scale with accuchecks for glycemic control On Synthroid 50 mcg daily. TSH:0.98 on 06/27 PROPH: SCD/Lovenox 40mg daily for DVT prophylaxis. Protonix 40mg Q12 for GI prophylaxis Doppler US RUE 06/29: Mild nonocclusive thrombus in the right axillary vein to the brachial vein ACCESS: Removed right upper extremity PICC 06/26. L IJ CVL placed 06/26 Palliative care following. For possible withdrawal care today Full code CCT 35 mins excluding procedures
[2018-07-07] MEDS: Pantoprazole Inj 40 MG Vial IV.PUSH SCH (08:41)
[2018-07-07] MEDS: Chlorhexidine 0.12% Oral Kit 15 ML UDC OROPHARYNG SCH (08:41)
[2018-07-07] MEDS: Enoxaparin Inj 40 MG/0.4 ML Syringe SQ SCH (08:41)
[2018-07-07] MEDS: Sodium Chloride 0.9% 2 ML Flush BID IV.FLUSH SCH (08:42)
--- NOTE | 2018-07-07 11:41 | P.PNPAL ---
Reason for Visit Reason for visit: a. To assist with evaluation and management of symptoms including: pain, dyspnea, debility b. To assist medical decision maker(s) with: better understanding of current medical conditions; weighing benefits/burdens of medical treatment options; making medical treatment decisions. Subjective Subjective/Interval History: Pt seen today to follow up on comfort, goals. Remains on mech vent in ICU. sedation off, tolerating CPAP overnight, though noted to have thick in-line secretions. Eyes open and appears to track though does not follow commands. Continues to be flaccid on right side. CT did show new areas of embolic stroke vs metastatic disease. Pupils equal and reactive to light. Left upper extremity withdraws weakly to pain. I do not notice any spontanous movement of LUE like I have in the past. She continues to move LLE spontaneously but not to command. TPN has been D/C'd and she is tolerating tube feeding. Today's clinical data as follows: * WBC 13.8, Hcg 10.7, Hct 33.2 platelets 290 * Na 144, K+ 3.7, Cl 108, Carbon Dioxide 28.9, BUN 48, Creatinine 0.69, glucose 130 Family/Friend Interactions: Family meeting today with daughters, son, patient's sister and niece, and Florentino Shaikh APRN present. We discussed the patient's current medical condition and trajectory. We discussed the results of her head imagining done over the weekend. The patient remains intubated and hemiplegic on the right side. She has increasing left-sided weakness as well as questionable mental status. We discussed at length that it was unsure if she would be able to protect her own airway and may possible require re-intubation. We also talked about how the patient would likely require full-time support for the foreseeable future, if not for the rest of her life. Family verbalized that they feel their mother would not want to live dependent on anyone for care. The mentioned that she was extremely proud and would not want to continue with aggressive measures given her current condition. Her living will reflects these sentiments. Case discussed with attending and RN at bedside Advance Directives Living Will: Copy in medical record Advance Directives Date on File: 06/30/18 Health Care Surrogate Name and Number: Harper Matt [phone] Maile Moss [phone] Documented care wishes:: The family provided a documented living well. States that she has a terminal condition or end-stage condition or in a persistent vegetative state she does not wish to have life prolonging procedures. She requested that be withheld or withdrawn when the application of such procedures would serve only to prolong artificially the process of dying and that she be permitted to naturally with only the administration of medication or the performance of any medical procedure deemed necessary to provide her with comfort care or to alleviate pain. She does name her daughters Harper Matt and Maile Moss as her healthcare surrogates, Harper is primary. Significant change in goals:: The family wishes to transition to comfort measures only. Compassionate extubation planned for later today. Objective Vital Signs: Vital Signs 07/06/18 12:00 07/06/18 12:45 07/06/18 16:00 Temperature 98.7 F 98.9 F Pulse Rate 97 H 94 H Respiratory Rate 28 H 12 19 Blood Pressure 121/69 119/65 Pulse Oximetry 97 96 95 07/06/18 20:00 07/06/18 20:33 07/06/18 22:00 Temperature 99.1 F Pulse Rate 102 H 101 H Respiratory Rate 19 16 Blood Pressure 119/69 Pulse Oximetry 98 99 07/06/18 23:47 07/07/18 00:00 07/07/18 02:00 Temperature 99.3 F Pulse Rate 94 H 104 H Respiratory Rate 21 16 Blood Pressure 122/63 Pulse Oximetry 98 99 07/07/18 04:00 07/07/18 04:27 07/07/18 06:00 Temperature 99 F Pulse Rate 107 H 98 H Respiratory Rate 24 17 Blood Pressure 127/68 Pulse Oximetry 96 99 07/07/18 07:00 07/07/18 07:57 07/07/18 08:00 Temperature 98.8 F Pulse Rate 100 H 91 H Respiratory Rate 20 24 25 H Blood Pressure 139/74 130/72 Pulse Oximetry 97 94 L 94 L 07/07/18 09:00 07/07/18 10:00 07/07/18 10:45 Temperature Pulse Rate 106 H 112 H Respiratory Rate 19 20 17 Blood Pressure 132/72 105/68 Pulse Oximetry 98 96 97 Intake & Output 07/06/18 07/07/18 07/07/18 18:59 06:59 18:59 Intake Total 786 / 786 1145 / 1145 Output Total 1500 / 1500 1300 / 1300 Balance -714 / -714 -155 / -155 Weight 47.5 kg Intake: IV 300 / 300 600 / 600 Flexbumin 25% Inj 100 ML @ 60 200 / 200 mls/hr IV.SIG Q12H PABLO Rx#: [id number] Maxipime Inj 2,000 MG In NS Inj 100 / 100 200 / 200 100 ML @ 200 mls/hr IV.SIG Q8H PABLO Rx#:[id number] KCl 40 mEq Premix Inj 40 meq In 100 / 100 100 ml @ 25 mls/hr IV.SIG Q2H PRN Rx#:[id number] Flagyl 500 MG Inj 100 ML @ 100 100 / 100 200 / 200 mls/hr IV.SIG Q8H PABLO Rx#: [id number] Oral 0 / 0 Tube Feeding 436 / 436 545 / 545 Tube Irrigant 50 / 50 Output: Urine Amount (Catheter) 1500 / 1500 1300 / 1300 Indwelling Urethral Catheter 1500 / 1500 1300 / 1300 Other: Date of Last Bowel Movement 07/06/18 07/06/18 07/06/18 # Bowel Movements 1 Physical Exam: CONSTITUTIONAL/GENERAL: ill appearing female, on mech vent TUBES/LINES/DRAINS: IJ central line, gutierrez catheter, soft restraints BUE, NGT SKIN: No jaundice, rashes, or lesions.+Ecchymoses on upper extremities. No wounds seen anteriorly.skin warm/dry EYES: Pupils 3mm, reactive to light opens eyes to voice, does not appears to track. No scleral icterus. No injection or drainage. Fundi not examined. CARDIOVASCULAR:tachycardic with regular rhythm. No JVD. Peripheral pulses symmetric. RESPIRATORY/CHEST: Symmetric,un labored respirations on mech vent currently tolerating CPAP. Scattered rhonchi throughout, decreased air movement. Breath sounds equal bilaterally. GASTROINTESTINAL: Abdomen soft, distention much improved. + mild tenderness, becomes tense with palp. No palpable masses. Bowel sounds active GENITOURINARY: Without palpable bladder distension. Gutierrez catheter in place. clear yellow urine present. MUSCULOSKELETAL: peripheral pulses palpable. today hands are warm, bilateral great toes cold and discolored. Swelling to right hand greatly decreased NEUROLOGICAL: eyes open to voice, does not appear to track. No longer on sedation. No following of commands. moves left extremities though not on command , left upper extremity weaker than left lower. right side flaccid PSYCHIATRIC: No obvious anxiety/depression- limited assess due to clinical condition. Diagnostic Tests Laboratory: Laboratory Results - last 72 hr 07/04/18 07/04/18 07/04/18 11:51 16:23 18:15 WBC RBC Hgb Hct MCV MCH MCHC RDW Plt Count MPV Prelim Diff (Auto) Neut % (Auto) Lymph % (Auto) Boyd % (Auto) Eos % (Auto) Baso % (Auto) Neut # (Auto) Lymph # (Auto) Boyd # (Auto) Eos # (Auto) Baso # (Auto) WBC Differential Seg Neuts % (Manual) Band Neuts % (Manual) Lymphocytes % (Manual) Monocytes % (Manual) Metamyelocytes % (Man) Abs Neuts (Manual) Differential Comment Platelet Estimate Platelet Morphology Ovalocytes Acanthocytes (Spur) Sodium Potassium 3.7 D Chloride Carbon Dioxide Anion Gap BUN Creatinine Estimated GFR POC Glucose 73 102 Random Glucose Calcium Phosphorus Magnesium Total Bilirubin AST ALT Alkaline Phosphatase Total Protein Albumin Stl C.difficile DNA Amp St C. diff Tox Epid 027 07/04/18 07/04/18 07/04/18 18:30 20:31 23:52 WBC RBC Hgb Hct MCV MCH MCHC RDW Plt Count MPV Prelim Diff (Auto) Neut % (Auto) Lymph % (Auto) Boyd % (Auto) Eos % (Auto) Baso % (Auto) Neut # (Auto) Lymph # (Auto) Boyd # (Auto) Eos # (Auto) Baso # (Auto) WBC Differential Seg Neuts % (Manual) Band Neuts % (Manual) Lymphocytes % (Manual) Monocytes % (Manual) Metamyelocytes % (Man) Abs Neuts (Manual) Differential Comment Platelet Estimate Platelet Morphology Ovalocytes Acanthocytes (Spur) Sodium Potassium Chloride Carbon Dioxide Anion Gap BUN Creatinine Estimated GFR POC Glucose 81 87 Random Glucose Calcium Phosphorus Magnesium Total Bilirubin AST ALT Alkaline Phosphatase Total Protein Albumin Stl C.difficile DNA Amp Negative St C. diff Tox Epid 027 Negative 07/05/18 07/05/18 07/05/18 01:06 03:25 03:25 WBC 17.2 H RBC 4.32 Hgb 11.3 L Hct 34.0 L MCV 78.7 L MCH 26.2 L MCHC 33.2 RDW 20.0 H Plt Count 167 D MPV 11.1 H Prelim Diff (Auto) Slide review pending Neut % (Auto) 94.3 H Lymph % (Auto) 0.9 L Boyd % (Auto) 4.5 Eos % (Auto) 0.0 Baso % (Auto) 0.3 Neut # (Auto) 16.2 H Lymph # (Auto) 0.1 L Boyd # (Auto) 0.8 Eos # (Auto) 0.0 Baso # (Auto) 0.1 WBC Differential Manual diff final Seg Neuts % (Manual) 77 H Band Neuts % (Manual) 18 H Lymphocytes % (Manual) 1 L Monocytes % (Manual) 3 Metamyelocytes % (Man) 1 Abs Neuts (Manual) 16.5 H Differential Comment . Platelet Estimate Normal Platelet Morphology Normal Ovalocytes 1+ H Acanthocytes (Spur) 1+ H Sodium 141 Potassium 3.2 L Chloride 103 Carbon Dioxide 30.8 Anion Gap 7 BUN 37 H Creatinine 0.62 Estimated GFR Greater than 89 POC Glucose 73 Random Glucose 106 Calcium 8.1 L Phosphorus 2.9 Magnesium 1.8 Total Bilirubin 1.0 AST 32 ALT 24 Alkaline Phosphatase 78 Total Protein 6.8 Albumin 3.5 Stl C.difficile DNA Amp St C. diff Tox Epid 027 07/05/18 07/05/18 07/05/18 03:47 08:11 11:30 WBC RBC Hgb Hct MCV MCH MCHC RDW Plt Count MPV Prelim Diff (Auto) Neut % (Auto) Lymph % (Auto) Boyd % (Auto) Eos % (Auto) Baso % (Auto) Neut # (Auto) Lymph # (Auto) Boyd # (Auto) Eos # (Auto) Baso # (Auto) WBC Differential Seg Neuts % (Manual) Band Neuts % (Manual) Lymphocytes % (Manual) Monocytes % (Manual) Metamyelocytes % (Man) Abs Neuts (Manual) Differential Comment Platelet Estimate Platelet Morphology Ovalocytes Acanthocytes (Spur) Sodium Potassium Chloride Carbon Dioxide Anion Gap BUN Creatinine Estimated GFR POC Glucose 111 H 99 75 Random Glucose Calcium Phosphorus Magnesium Total Bilirubin AST ALT Alkaline Phosphatase Total Protein Albumin Stl C.difficile DNA Amp St C. diff Tox Epid 027 07/05/18 07/05/18 07/06/18 16:40 19:43 00:18 WBC RBC Hgb Hct MCV MCH MCHC RDW Plt Count MPV Prelim Diff (Auto) Neut % (Auto) Lymph % (Auto) Boyd % (Auto) Eos % (Auto) Baso % (Auto) Neut # (Auto) Lymph # (Auto) Boyd # (Auto) Eos # (Auto) Baso # (Auto) WBC Differential Seg Neuts % (Manual) Band Neuts % (Manual) Lymphocytes % (Manual) Monocytes % (Manual) Metamyelocytes % (Man) Abs Neuts (Manual) Differential Comment Platelet Estimate Platelet Morphology Ovalocytes Acanthocytes (Spur) Sodium Potassium Chloride Carbon Dioxide Anion Gap BUN Creatinine Estimated GFR POC Glucose 75 86 86 Random Glucose Calcium Phosphorus Magnesium Total Bilirubin AST ALT Alkaline Phosphatase Total Protein Albumin Stl C.difficile DNA Amp St C. diff Tox Epid 027 07/06/18 07/06/18 07/06/18 00:20 03:55 04:02 WBC 15.9 H RBC 4.13 Hgb 10.6 L Hct 32.6 L MCV 79.1 L MCH 25.7 L MCHC 32.5 RDW 19.8 H Plt Count 212 MPV 10.1 Prelim Diff (Auto) Neut % (Auto) 92.8 H Lymph % (Auto) 0.7 L Boyd % (Auto) 6.3 Eos % (Auto) 0.0 Baso % (Auto) 0.2 Neut # (Auto) 14.7 H Lymph # (Auto) 0.1 L Boyd # (Auto) 1.0 H Eos # (Auto) 0.0 Baso # (Auto) 0.0 WBC Differential . Seg Neuts % (Manual) Band Neuts % (Manual) Lymphocytes % (Manual) Monocytes % (Manual) Metamyelocytes % (Man) Abs Neuts (Manual) Differential Comment Auto diff final Platelet Estimate Platelet Morphology Ovalocytes Acanthocytes (Spur) Sodium Potassium 3.6 Chloride Carbon Dioxide Anion Gap BUN Creatinine Estimated GFR POC Glucose 150 H Random Glucose Calcium Phosphorus Magnesium Total Bilirubin AST ALT Alkaline Phosphatase Total Protein Albumin Stl C.difficile DNA Amp St C. diff Tox Epid 027 07/06/18 07/06/18 07/06/18 04:02 07:50 11:12 WBC RBC Hgb Hct MCV MCH MCHC RDW Plt Count MPV Prelim Diff (Auto) Neut % (Auto) Lymph % (Auto) Boyd % (Auto) Eos % (Auto) Baso % (Auto) Neut # (Auto) Lymph # (Auto) Boyd # (Auto) Eos # (Auto) Baso # (Auto) WBC Differential Seg Neuts % (Manual) Band Neuts % (Manual) Lymphocytes % (Manual) Monocytes % (Manual) Metamyelocytes % (Man) Abs Neuts (Manual) Differential Comment Platelet Estimate Platelet Morphology Ovalocytes Acanthocytes (Spur) Sodium 141 Potassium 3.5 Chloride 105 Carbon Dioxide 28.3 Anion Gap 8 BUN 43 H Creatinine 0.69 Estimated GFR 84 L POC Glucose 74 107 Random Glucose 108 H Calcium 8.7 Phosphorus 2.9 Magnesium 1.9 Total Bilirubin 0.9 AST 21 ALT 20 Alkaline Phosphatase 81 Total Protein 7.0 Albumin 3.8 Stl C.difficile DNA Amp St C. diff Tox Epid 027 07/06/18 07/06/18 07/06/18 16:28 20:44 23:45 WBC RBC Hgb Hct MCV MCH MCHC RDW Plt Count MPV Prelim Diff (Auto) Neut % (Auto) Lymph % (Auto) Boyd % (Auto) Eos % (Auto) Baso % (Auto) Neut # (Auto) Lymph # (Auto) Boyd # (Auto) Eos # (Auto) Baso # (Auto) WBC Differential Seg Neuts % (Manual) Band Neuts % (Manual) Lymphocytes % (Manual) Monocytes % (Manual) Metamyelocytes % (Man) Abs Neuts (Manual) Differential Comment Platelet Estimate Platelet Morphology Ovalocytes Acanthocytes (Spur) Sodium Potassium Chloride Carbon Dioxide Anion Gap BUN Creatinine Estimated GFR POC Glucose 118 H 117 H 130 H Random Glucose Calcium Phosphorus Magnesium Total Bilirubin AST ALT Alkaline Phosphatase Total Protein Albumin Stl C.difficile DNA Amp St C. diff Tox Epid 027 07/07/18 07/07/18 07/07/18 04:11 04:20 04:20 WBC 13.8 H RBC 4.16 Hgb 10.7 L Hct 33.2 L MCV 79.9 L MCH 25.6 L MCHC 32.1 RDW 20.5 H Plt Count 290 D MPV 9.7 Prelim Diff (Auto) Neut % (Auto) 90.7 H Lymph % (Auto) 1.0 L Boyd % (Auto) 8.1 H Eos % (Auto) 0.0 Baso % (Auto) 0.2 Neut # (Auto) 12.6 H Lymph # (Auto) 0.1 L Boyd # (Auto) 1.1 H Eos # (Auto) 0.0 Baso # (Auto) 0.0 WBC Differential . Seg Neuts % (Manual) Band Neuts % (Manual) Lymphocytes % (Manual) Monocytes % (Manual) Metamyelocytes % (Man) Abs Neuts (Manual) Differential Comment Auto diff final Platelet Estimate Platelet Morphology Ovalocytes Acanthocytes (Spur) Sodium 144 Potassium 3.7 Chloride 108 H Carbon Dioxide 28.9 Anion Gap 7 BUN 48 H Creatinine 0.69 Estimated GFR 84 L POC Glucose 127 H Random Glucose 130 H Calcium 9.0 Phosphorus 2.5 Magnesium 2.0 Total Bilirubin 0.8 AST 17 ALT 19 Alkaline Phosphatase 84 Total Protein 7.4 Albumin 4.1 Stl C.difficile DNA Amp St C. diff Tox Epid 027 07/07/18 08:35 WBC RBC Hgb Hct MCV MCH MCHC RDW Plt Count MPV Prelim Diff (Auto) Neut % (Auto) Lymph % (Auto) Boyd % (Auto) Eos % (Auto) Baso % (Auto) Neut # (Auto) Lymph # (Auto) Boyd # (Auto) Eos # (Auto) Baso # (Auto) WBC Differential Seg Neuts % (Manual) Band Neuts % (Manual) Lymphocytes % (Manual) Monocytes % (Manual) Metamyelocytes % (Man) Abs Neuts (Manual) Differential Comment Platelet Estimate Platelet Morphology Ovalocytes Acanthocytes (Spur) Sodium Potassium Chloride Carbon Dioxide Anion Gap BUN Creatinine Estimated GFR POC Glucose 120 H Random Glucose Calcium Phosphorus Magnesium Total Bilirubin AST ALT Alkaline Phosphatase Total Protein Albumin Stl C.difficile DNA Amp St C. diff Tox Epid 027 Result Diagrams: 07/07/18 04:20 07/07/18 04:20 Microbiology: Microbiology 07/06/18 08:01 Aerobic Blood Culture - Preliminary Blood - Peripheral No growth in 1 day Anaerobic Blood Culture - Preliminary No growth in 1 day 07/06/18 04:30 Aerobic Blood Culture - Preliminary Blood - Peripheral No growth in 1 day Anaerobic Blood Culture - Preliminary No growth in 1 day Imaging: Head CT 07/04/18 00:00 CONCLUSION: Interval development of multiple lucencies involving the left frontal and parietal lobes not present on the prior study from 6 days ago most likely multifocal areas of infarction possibly embolic episode without any hemorrhage or mass effect. Underlying metastatic disease is not excluded and further characterization with brain MRI with and without contrast is recommended. Findings were discussed with the patient's nurseNelsy on 2017 at 21:40 hours at the time of this dictation. Head MRI 07/05/18 00:00 CONCLUSION: 1. Multifocal infarcts as noted above. Given the multiplicity and bilaterality this suggests possible embolic infarcts versus vasculitis. Comparison MRA demonstrated narrowing of the left M2 segment. Head MRA 07/05/18 00:00 CONCLUSION: 1. Decreased caliber of the left M2 segment of the MCA corresponding with the areas of hypoattenuation on comparison CT. Findings are concerning for multifocal acute infarct. Neck MRA 07/05/18 00:00 CONCLUSION: 1. Negative MRA Carotids. Percent stenosis is calculated using the diameter of the stenotic region over the diameter of the normal distal internal carotid artery Procedures: 06/26/18 - LIJ placement 06/29/18 - intubated 07/05/18 Right NGT Assessment and Plan - Disease Oriented Problem List (1) Rectal cancer - Symptom Scale (1) Pain 0-10 Scale: Unable to quantify Comment: intubated, does show some nonverbal pain cues (2) Debility 0-10 Scale: Unable to quantify Comment: now with right sided hemiplegia and questionable mental status (3) Dyspnea 0-10 Scale: Unable to quantify Comment: remains intubated though tolerating CPAP Pertinent Non-Medical Issues: Psychosocial: Ms. Barraza is currently though her is living in a senior living with dementia. She is originally from [place] but has been living in [place] for greater than 5 years. She has 2 biological daughters and multiple stepchildren with her . She is described as a very energetic and caring woman. Spiritual:Yarsanism Legal: The patient is no longer able to participate in her own medical care. Her family has provided a documented living will that names her daughters Harper and Maile as surrogates Ethical issues impacting care: There are no known ethical issues impacting care at this time. Important Contacts: Maile Moss, daughter/HCP [phone] Harper Matt, daughter/HCP [phone] (primary) Prognosis: The patient currently has a poor prognosis. Though her cancer may be treatable she is currently too debilitated to undergo any type of aggressive chemotherapy or radiation therapy. She is at risk for further decline and decompensation due to sepsis, protein calorie malnutrition, etc. She is at risk for further respiratory and cardiac decline, further debility, and . Code Status: No Code DNR Plan: * LEGAL DECISION MAKER: Patient currently intubated and unable to participate in decision-making. Living will names daughter Madison is primary HCS, other daughter Kristal is secondary. * GOALS: Family wishes to transition to comfort measure. Plans for compassionate extubation today. Hospice was consulted with plans to transfer to [facility] Saturday * CODE STATUS: DNR * SYMPTOMS: Dyspnea - plans for compassionate withdraw later today, medications provided for pre-extubation, at the time of, and PRN post extubation. Pain patient will be appropriately medicated pre-extubation, at the time of, and PRN post. * Palliative care will continue to follow during hospital course as condition evolves, to assist patient/decision maker with understanding of medical conditions, weighing benefits/burdens of treatment options, for clarification of goals of treatment. Additionally will assist with any symptoms of palliative concern.
[2018-07-07] MEDS ORDERED: Morphine Sulfate Inj 8 MG/ML Vial IV.PUSH PRN (14:14)
[2018-07-07] MEDS ORDERED: Morphine Inj 4 MG/ML Vial IV.PUSH ONE (14:14)
[2018-07-07] MEDS ORDERED: Morphine Sulfate Inj 8 MG/ML Vial IV.PUSH ONE (14:14)
[2018-07-07] MEDS ORDERED: Hyoscyamine Inj 0.5 MG/ML Ampul IV.PUSH ONE (14:14)
[2018-07-07] MEDS ORDERED: Acetaminophen 650 MG Supp RECTAL PRN (15:07)
--- NOTE | 2018-07-07 15:11 | P.PNWCN ---
Wound Care Nurse Consult Description: Consult for Pressure Ulcer of Sacrum per Dr Orozco Communicated with: EARLE Akers ARNP Recommendation: Comfort measures only. Additional information: Spoke with RN and DAMI on for pending consult. Patient is being transitioned to comfort measures only. Patient not seen by wound care today. Please re-consult if needed.
[2018-07-07] MEDS: Morphine Inj 4 MG/ML Vial IV.PUSH SCH ×2 (15:23→20:04)
--- NOTE | 2018-07-07 17:43 | P.PNONC ---
Subjective Interval history: Afebrile Per BILLING CLERK patient had care withdrawn earlier today She is moving her left side but nonpurposeful. Family members at the bedside Objective Vital Signs/Intake & Output: Vital Signs 07/06/18 20:00 07/06/18 20:33 07/06/18 22:00 Temperature 99.1 F Pulse Rate 102 H 101 H Respiratory Rate 19 16 Blood Pressure 119/69 Pulse Oximetry 98 99 07/06/18 23:47 07/07/18 00:00 07/07/18 02:00 Temperature 99.3 F Pulse Rate 94 H 104 H Respiratory Rate 21 16 Blood Pressure 122/63 Pulse Oximetry 98 99 07/07/18 04:00 07/07/18 04:27 07/07/18 06:00 Temperature 99 F Pulse Rate 107 H 98 H Respiratory Rate 24 17 Blood Pressure 127/68 Pulse Oximetry 96 99 07/07/18 07:00 07/07/18 07:57 07/07/18 08:00 Temperature 98.8 F Pulse Rate 100 H 91 H Respiratory Rate 20 24 25 H Blood Pressure 139/74 130/72 Pulse Oximetry 97 94 L 94 L 07/07/18 09:00 07/07/18 10:00 07/07/18 10:45 Temperature Pulse Rate 106 H 112 H Respiratory Rate 19 20 17 Blood Pressure 132/72 105/68 Pulse Oximetry 98 96 97 07/07/18 13:00 07/07/18 16:00 Temperature Pulse Rate 119 H Respiratory Rate 16 Blood Pressure Pulse Oximetry 99 Intake & Output 07/06/18 07/07/18 07/07/18 18:59 06:59 18:59 Intake Total 786 / 786 1145 / 1145 200 / 200 Output Total 1500 / 1500 1300 / 1300 1600 / 1600 Balance -714 / -714 -155 / -155 -1400 / -1400 Weight 104 lb 11.513 oz Intake: IV 300 / 300 600 / 600 200 / 200 Flexbumin 25% Inj 100 ML @ 60 200 / 200 mls/hr IV.SIG Q12H PABLO Rx#: [id number] Maxipime Inj 2,000 MG In NS Inj 100 / 100 200 / 200 100 / 100 100 ML @ 200 mls/hr IV.SIG Q8H PABLO Rx#:[id number] KCl 40 mEq Premix Inj 40 meq In 100 / 100 100 ml @ 25 mls/hr IV.SIG Q2H PRN Rx#:[id number] Flagyl 500 MG Inj 100 ML @ 100 100 / 100 200 / 200 100 / 100 mls/hr IV.SIG Q8H PABLO Rx#: [id number] Oral 0 / 0 Tube Feeding 436 / 436 545 / 545 Tube Irrigant 50 / 50 Output: Urine Amount (Catheter) 1500 / 1500 1300 / 1300 1600 / 1600 Indwelling Urethral Catheter 1500 / 1500 1300 / 1300 1600 / 1600 Other: Date of Last Bowel Movement 07/06/18 07/06/18 07/06/18 # Bowel Movements 1 Result Diagrams: 07/07/18 04:20 07/07/18 04:20 Laboratory Results: Laboratory Results - last 24 hr 07/06/18 07/06/18 07/07/18 20:44 23:45 04:11 WBC RBC Hgb Hct MCV MCH MCHC RDW Plt Count MPV Neut % (Auto) Lymph % (Auto) Williams % (Auto) Eos % (Auto) Baso % (Auto) Neut # (Auto) Lymph # (Auto) Williams # (Auto) Eos # (Auto) Baso # (Auto) WBC Differential Differential Comment Sodium Potassium Chloride Carbon Dioxide Anion Gap BUN Creatinine Estimated GFR POC Glucose 117 H 130 H 127 H Random Glucose Calcium Phosphorus Magnesium Total Bilirubin AST ALT Alkaline Phosphatase Total Protein Albumin 07/07/18 07/07/18 07/07/18 04:20 04:20 08:35 WBC 13.8 H RBC 4.16 Hgb 10.7 L Hct 33.2 L MCV 79.9 L MCH 25.6 L MCHC 32.1 RDW 20.5 H Plt Count 290 D MPV 9.7 Neut % (Auto) 90.7 H Lymph % (Auto) 1.0 L Williams % (Auto) 8.1 H Eos % (Auto) 0.0 Baso % (Auto) 0.2 Neut # (Auto) 12.6 H Lymph # (Auto) 0.1 L Williams # (Auto) 1.1 H Eos # (Auto) 0.0 Baso # (Auto) 0.0 WBC Differential . Differential Comment Auto diff final Sodium 144 Potassium 3.7 Chloride 108 H Carbon Dioxide 28.9 Anion Gap 7 BUN 48 H Creatinine 0.69 Estimated GFR 84 L POC Glucose 120 H Random Glucose 130 H Calcium 9.0 Phosphorus 2.5 Magnesium 2.0 Total Bilirubin 0.8 AST 17 ALT 19 Alkaline Phosphatase 84 Total Protein 7.4 Albumin 4.1 07/07/18 12:18 WBC RBC Hgb Hct MCV MCH MCHC RDW Plt Count MPV Neut % (Auto) Lymph % (Auto) Williams % (Auto) Eos % (Auto) Baso % (Auto) Neut # (Auto) Lymph # (Auto) Williams # (Auto) Eos # (Auto) Baso # (Auto) WBC Differential Differential Comment Sodium Potassium Chloride Carbon Dioxide Anion Gap BUN Creatinine Estimated GFR POC Glucose 142 H Random Glucose Calcium Phosphorus Magnesium Total Bilirubin AST ALT Alkaline Phosphatase Total Protein Albumin Culture Results: Microbiology 07/06/18 08:01 Aerobic Blood Culture - Preliminary Blood - Peripheral No growth in 1 day Anaerobic Blood Culture - Preliminary No growth in 1 day 07/06/18 04:30 Aerobic Blood Culture - Preliminary Blood - Peripheral No growth in 1 day Anaerobic Blood Culture - Preliminary No growth in 1 day Medications: Active Medications Generic Name Dose Route Start Last Admin Trade Name Freq PRN Reason Stop Dose Admin Albuterol 1 ampul 06/27/18 10:01 07/05/18 20:07 Duoneb Neb (Prn) NEB 1 ampul Q2HR NEB PRN Administration DYSPNEA Furosemide 20 mg 06/28/18 18:00 07/07/18 08:52 Lasix Inj IV.PUSH 20 mg BID@0900,1800 PABLO Administration Lorazepam 1 mg 07/07/18 16:00 07/07/18 15:23 Ativan Inj IV.PUSH 1 mg Q4HR PABLO Administration Miscellaneous Medication 1 each 06/29/18 16:00 07/07/18 15:12 OROPHARYNG 1 each 0000,0400,1200,1600 PABLO Administration Morphine Sulfate 2 mg 07/07/18 16:00 07/07/18 15:23 Morphine Inj IV.PUSH 2 mg Q4HR PABLO Administration Ondansetron HCl 4 mg 06/26/18 04:31 07/04/18 06:13 Zofran Inj IV.PUSH 4 mg Q6H PRN Administration NAUSEA OR VOMITING Sodium Chloride 2 ml 06/27/18 10:30 06/28/18 06:02 Ns Flush IV.FLUSH 2 ml PRN PRN Administration FLUSH AFTER USING IV ACCESS Objective Remarks: GENERAL: Chronically ill-appearing older female resting in bed in no acute distress SKIN: Warm and dry. HEAD: Normocephalic. NECK: Supple, trachea midline. CARDIOVASCULAR: + S1/S2. Tachycardic. RESPIRATORY: Coarse lung sounds. Breathing appears unlabored GASTROINTESTINAL: Abdomen soft, non-tender EXTREMITIES: No cyanosis NEUROLOGICAL: Patient not responsive to my voice. Right side flaccid. Assessment/Plan - Plan Ms. 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 She had received 5 days of chemotherapy, completed on 06/13/2018. She is currently receiving radiation therapy which started on she was admitted for acute renal failure related to dehydration, intractable diarrhea from radiation chemotherapy. Plan: 1. The patient's family has made the decision to withdraw care. We support them in this decision. 2. Oncology service will follow along peripherally. - Attending Statement The exam, history, and the medical decision-making described in the above note were completed with the assistance of the mid-level provider. I reviewed and agree with the findings presented. I attest that I had a [id number] encounter with the patient on the same day, and personally performed and documented my assessment and findings in the medical record. Family has requested to withdraw from life support. sh ewas extubated earlier. Not responding. 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 she has a fib. prognosis is poor. Agree with [facility] sign off available prn. consult hospice.
[2018-07-07] MEDS: Morphine Inj 4 MG/ML Vial IV.PUSH PRN ×2 (18:33→22:48)
[2018-07-08] MEDS: Morphine Inj 4 MG/ML Vial IV.PUSH SCH ×4 (00:04→11:36)
[2018-07-08] MEDS: Oral Hygiene Kit OROPHARYNG SCH ×3 (00:06→11:37)
[2018-07-08] MEDS: Morphine Inj 4 MG/ML Vial IV.PUSH PRN ×5 (02:45→06:51)
--- NOTE | 2018-07-08 08:51 | P.PNCC ---
Subjective Subjective Remarks/Hospital Course: 72-year-old female with past medical history of anorectal squamous cell carcinoma, mixed connective tissue disease (SLE, Reynaud's, Polymyositis), remote cervical cancer status post hysterectomy, hypothyroid . She originally developed anal pain and bleeding in January of 2018. She was referred to Dr. Coelho who performed biopsy of anal mass on 04/25/18 which demonstrated invasive squamous cell carcinoma. Outpatient PET reportedly showed no local or distant metastatic disease. She has been undergoing radiation therapy under the care of Dr Concepcion. Concurrent chemotherapy is planned for week 1 and 5 of radiation; and she completed first chemo cycle 06/13/18. She has reportedly been having loose watery stools for several days, difficult to determine exact time of onset. She has also had abdominal pain. When she presented for radiation treatment on 06/25, she was weak and hypotensive so she was sent to the ED. She was pancytopenic with ANC 768. CT abd/pelvis showed fluid filled small bowel c/ w partial SBO or ileus. She was admitted to hospitalist service. Blood cultures were obtained 09/25 which have now resulted + pseudomonas in 09/26 bottles. She was started on cefepime 2 gram IV and vancomycin per hematology. Tmax was 101.2 [employer] In[employer] consult has been requested. She has a RUE PICC placed 06/09 which does not have overt clinical signs of infection, but will be removed. 06/27 Patient is lethargic on Amio drip ( HR now controlled) Afebrile. 06/28 patient lying on bed very lethargic remains on amiodarone infusion. Appears very critical. WBC count is improved to 7.8, platelet count of 35. BUN /creatinine further elevated at 66/1.36. Patient not to be weaker on the right upper and lower extremity-I do not see any history of CVA. Will check CT of the head stat. Patient is not a candidate for TPA due to severe thrombocytopenia, so will not initiate stroke alert. Breathing slightly labored 06/29: Clinically deteriorating very lethargic tachypneic. ABG shows significant hypoxia. Chest x-ray shows worsening bilateral infiltrates/edema. I had discussed with daughters yesterday they wanted to continue full code, patient is encephalopathy again unable to make any decisions at this time. Give additional 20 mg of IV Lasix and continue scheduled 20 mg twice daily. If not improving in the next 45-60 minutes will need endotracheal intubation 06/30: Severely septic lady who is intubated for severe respiratory failure on . Likely has acute lung injury from severe sepsis. FiO2 remains high at 65% to maintain sat above 90%. Chest x-ray is pending at this time WBC count 16 , sodium is 150, BUN 67 creatinine 1.3. Urine output adequate with Lasix 07/01 Patient remains intubated and sedated with Versed drip 3mg/hr, on Amio drip and TPN. s/p 1u PLT pheresis yesterday PLT count 12 this morning. 07/02 Patient is sedated with Versed and intubated. Afebrile, on Amio drip.s/p 1u PLT transfusion yesterday 07/03 No events overnight. Off sedation. Tolerated CPAP x 6 hrs yesterday. Afebrile. 07/04 No events overnight. Remains off sedation more awake. Afebrile. 07/05 Patient remains intubated tolerated CPAP all day yesterday. Not moving right side. CT brain yesterday interval development of multiple lucencies involving the left frontal and parietal lobes not present on the prior study from 6 days ago most likely multifocal areas of infarction possibly embolic episode without any hemorrhage or mass effect. Underlying metastatic disease is not excluded. 07/06 Patient remains intubated on CPAP with PS 15, PEEP:5 and FIO2: 40%. Afebrile. 07/07 Noeventsovernight. On CPAP overnight. Afebrile Subjective 07/08: Extubated compassionately overnight. Unresponsive on nasal cannula via mouth. Objective Vital Signs / I&O: Vital Signs 07/07/18 09:00 07/07/18 10:00 07/07/18 10:45 Temperature Pulse Rate 106 H 112 H Respiratory Rate 19 20 17 Blood Pressure 132/72 105/68 Pulse Oximetry 98 96 97 07/07/18 13:00 07/07/18 16:00 07/07/18 19:15 Temperature 100 F H Pulse Rate 119 H 110 H Respiratory Rate 16 29 H Blood Pressure 90/52 L Pulse Oximetry 99 92 L 07/07/18 20:00 07/08/18 00:00 07/08/18 04:00 Temperature Pulse Rate 110 H 108 H 112 H Respiratory Rate Blood Pressure Pulse Oximetry 07/08/18 07:15 Temperature 100.6 F H Pulse Rate 106 H Respiratory Rate 28 H Blood Pressure 85/53 L Pulse Oximetry 86 L Intake & Output 07/07/18 07/08/18 07/08/18 18:59 06:59 18:59 Intake Total 200 / 200 Output Total 1600 / 1600 250 / 250 Balance -1400 / -1400 -250 / -250 Weight 47 kg Intake: IV 200 / 200 Maxipime Inj 2,000 MG In NS Inj 100 / 100 100 ML @ 200 mls/hr IV.SIG Q8H PABLO Rx#:[id number] Flagyl 500 MG Inj 100 ML @ 100 100 / 100 mls/hr IV.SIG Q8H PABLO Rx#: [id number] Output: Urine Amount (Catheter) 1600 / 1600 250 / 250 Indwelling Urethral Catheter 1600 / 1600 250 / 250 Other: Date of Last Bowel Movement 07/06/18 07/06/18 07/06/18 Result Diagrams: 07/07/18 04:20 07/07/18 04:20 Other Results: Microbiology 07/06/18 08:01 Blood - Peripheral Aerobic Blood Culture - Preliminary No growth in 1 day 07/06/18 08:01 Blood - Peripheral Anaerobic Blood Culture - Preliminary No growth in 1 day 07/06/18 04:30 Blood - Peripheral Aerobic Blood Culture - Preliminary No growth in 1 day 07/06/18 04:30 Blood - Peripheral Anaerobic Blood Culture - Preliminary No growth in 1 day 06/30/18 16:30 Sputum - Endotracheal Gram Stain - Final 06/30/18 16:30 Sputum - Endotracheal Sputum Culture - Final No growth in 48 hours 06/27/18 10:50 Blood - Peripheral Aerobic Blood Culture - Final No growth in 5 days 06/27/18 10:50 Blood - Peripheral Anaerobic Blood Culture - Final No growth in 5 days 06/27/18 10:45 Blood - Peripheral Aerobic Blood Culture - Final No growth in 5 days 06/27/18 10:45 Blood - Peripheral Anaerobic Blood Culture - Final No growth in 5 days 06/30/18 13:08 Stool Stool Occult Blood (EPIFANIO) - Final Hemoccult negative 06/25/18 12:10 Blood - Peripheral Aerobic Blood Culture - Final 06/25/18 12:10 Blood - Peripheral Anaerobic Blood Culture - Final QNS - See aerobic report. 06/27/18 16:55 Clean Catch Urine Urine Culture - Final No growth in 48 hours 06/25/18 12:25 Blood - Peripheral Aerobic Blood Culture - Final Pseudomonas aeruginosa 06/25/18 12:25 Blood - Peripheral Anaerobic Blood Culture - Final QNS - See aerobic report. Imaging: Abdomen/Pelvis CT 06/25/18 00:00 CONCLUSION: 1. No significant change compared to the previous examination dated 04/17/2018. 2. Multiple fluid-filled dilated loops of small bowel suggesting possible partial small bowel obstruction or ileus. Clinical correlation is recommended. 3. The rectum is unchanged in appearance compared to the previous examination although its evaluation is limited without oral contrast. The patient has a history of rectal carcinoma. Uncomplicated colonic diverticulosis is noted. 4. Stable cystic left adnexal lesion measuring 5.6 x 3.1 cm which may represent an ovarian cyst. 5. Distended gallbladder. 6. Multiple stable calcified nonobstructing bilateral renal calculi. 7. Multiple bilateral renal cysts. 8. Hiatal hernia. 9. Degenerative changes throughout the lumbar spine. Chest X-Ray 06/25/18 11:53 CONCLUSION: PICC line in good position otherwise negative Chest X-Ray 06/26/18 21:44 CONCLUSION: 1. Mild pulmonary edema has developed. 2. New left IJ central venous catheter with tip in the superior vena cava. No pneumothorax. 3. Unchanged right arm PICC with tip in the superior vena cava. Abdomen/Pelvis CT 06/28/18 00:00 CONCLUSION: 1. Colonic diverticula. 2. Persistent 4.6 cm left adnexal cystic mass. 3. Distended gallbladder. 4. Cortical calcic location seen at the left kidney with some cortical thinning. There are multiple left-sided renal masses likely related to cysts although they're nonspecific on this noncontrast CT examination. Chest CT 06/28/18 00:00 CONCLUSION: 1. Development of moderate bilateral pleural effusions being worse in the right. 2. Areas of consolidation or atelectasis at the posterior lower lungs. Given the effusions is likely represent areas of atelectasis. 3. Consolidation and bronchiectasis in the right upper lung. This was present on the prior exam. It appears to progress. 4. Distended esophagus throughout the chest. Head CT 06/28/18 00:00 CONCLUSION: Negative noncontrast head CT. . Chest X-Ray 06/28/18 09:34 CONCLUSION: Diffuse increased interstitial markings likely related to diffuse processes such as edema. There some superimposed atelectasis or consolidation at the bases being worse on the right. Chest X-Ray 06/29/18 00:00 CONCLUSION: ET tube and left internal jugular central line in good position. Diffuse mixed interstitial and alveolar consolidation likely related to diffuse processes such as edema or diffuse infection. The lungs appear unchanged from the prior exam. Venous Doppler Study 06/29/18 00:00 CONCLUSION: Mild nonocclusive thrombus in the right axillary vein to the brachial vein. Chest X-Ray 06/29/18 09:00 CONCLUSION: Diffuse consolidation likely related to diffuse processes such as edema or infection. Compared to the prior exam, the consolidation appears worse. Chest X-Ray 06/30/18 09:58 CONCLUSION: Unchanged bilateral infiltrates. Chest X-Ray 07/01/18 06:00 CONCLUSION: 1. Stable ETT and left IJ central line. 2. Improved bilateral perihilar upper lung zone airspace disease. 3. Persistent right lower lung zone airspace disease. Abdomen X-Ray 07/02/18 00:00 CONCLUSION: No dilated bowel loops to suggest ileus. Chest X-Ray 07/03/18 00:00 CONCLUSION: 1. Bilateral perihilar and right lower lobe airspace disease not significant change. 2. Rounded density overlying the left upper lung could be external to patient. Attention to this area on follow-up studies recommended. Head CT 07/04/18 00:00 CONCLUSION: Interval development of multiple lucencies involving the left frontal and parietal lobes not present on the prior study from 6 days ago most likely multifocal areas of infarction possibly embolic episode without any hemorrhage or mass effect. Underlying metastatic disease is not excluded and further characterization with brain MRI with and without contrast is recommended. Findings were discussed with the patient's nurse, Nelsy on 2017 at 21:40 hours at the time of this dictation. Head MRI 07/05/18 00:00 CONCLUSION: 1. Multifocal infarcts as noted above. Given the multiplicity and bilaterality this suggests possible embolic infarcts versus vasculitis. Comparison MRA demonstrated narrowing of the left M2 segment. Head MRA 07/05/18 00:00 CONCLUSION: 1. Decreased caliber of the left M2 segment of the MCA corresponding with the areas of hypoattenuation on comparison CT. Findings are concerning for multifocal acute infarct. Neck MRA 07/05/18 00:00 CONCLUSION: 1. Negative MRA Carotids. Percent stenosis is calculated using the diameter of the stenotic region over the diameter of the normal distal internal carotid artery Objective Remarks: GENERAL: Patient is 72-year-old female currently extubated SKIN: Warm and dry. HEAD: Normocephalic. EYES: No scleral icterus. No injection or drainage. Anemic ENT: Oral mucosa is dry. Orotracheally intubated NECK: Supple, trachea midline. No JVD or lymphadenopathy. CARDIOVASCULAR: RRR without murmurs, gallops, or rubs. RESPIRATORY: B/l equal air entry GASTROINTESTINAL: Abdomen soft, non-tender, nondistended. MUSCULOSKELETAL: No cyanosis, or edema. Neuro: Currently not arousable. Right side flaccid. Assessment and Plan - Assessment and Plan Plan: NEURO: Acute metabolic encephalopathy MRI brain 07/05: Multifocal infarcts as noted above. Given the multiplicity and bilaterality this suggests possible embolic infarcts versus vasculitis MRA brain:Decreased caliber of the left M2 segment of the MCA corresponding with the areas of hypoattenuation on comparison CT. Findings are concerning for multifocal acute infarct. MRA neck: Negative Repeat CT brain 07/04: Interval development of multiple lucencies involving the left frontal and parietal lobes not present on the prior study from 6 days ago most likely multifocal areas of infarction possibly embolic episode without any hemorrhage or mass effect. 06/28 CT head negative for acute findings Monitor neuro status. Continue morphine and lorazepam for pain relief/agitation and comfort at the present time RESP: Acute hypoxemic respiratory failure Pulmonary edema Acute lung injury Nasal cannula for comfort. Albuterol/ipratropium aerosols every 2 hours as needed for comfort. CV: PAF Echo: The left ventricular systolic function is normal with an estimated ejection fraction in the range of 55-60%. Doppler parameters are consistent with impaired left ventricular relaxtion (grade 1 diastolic dysfunction). GI: C. difficile colitis Ileus Squamous cell carcinoma of the anus Moderate protein energy malnutrition N.p.o. status FEN/RENAL: GREY Stable ID: Pseudomonas bacteremia 06/25 Severe sepsis with probable GI source C Diff HEME: Squamous cell carcinoma anorectal Pancytopenia Right axillary DVT SCC anus - s/p chemo completed 06/13. Radiation therapy on hold per Dr. Concepcion. Monitor CBC, coags. ENDO: Hyperglycemia Hypothyroidism Currently holding Synthroid 50 mcg daily. TSH:0.98 on 06/27 PROPH: Not indicated ACCESS: Removed right upper extremity PICC 06/26. L IJ CVL placed 06/26 Level 2 follow-up
--- NOTE | 2018-07-08 13:54 | P.DS ---
Date of admission: 06/25/18 13:59 Primary care physician: Lei Palomo MD Attending physician on discharge: Brandon Allen Anticipated date of discharge: 07/08/18 Brief History from admission: Patient is 72-year-old female with history of mixed connective tissue disease, cervical cancer status post hysterectomy, history of anal/rectal cancer, GERD seen as an outpatient by Dr. Sosa. As outpatient presented with diarrhea and with perianal pain followed by rectal bleeding. She was referred to colorectal surgery where he was seen by Dr. Coelho and initially was thought to be thrombosed hemorrhoids. A colonoscopy showed ulcerated mass with pathology showing squamous cell carcinoma. Patient is undergoing radiation therapy daily for 6 weeks Saturday to Saturday till june. On evaluation today was noted to be pale and weak and Dr. Concepcion felt patient is too weak for treatment and was sent over here for further evaluation Patient subjectively feels fever, denies any cough, patient states she is now incontinent of stools, mainly complains of rectal pain. Generalized weakness. Has Percocet prn for pain On evaluation the ER with an acute kidney injury and hypokalemic and hypotensive. \ Patient admitted for further evaluation and management Patient update on day of discharge: 06/27 Patient is lethargic on Amio drip ( HR now controlled) Afebrile. 06/28 patient lying on bed very lethargic remains on amiodarone infusion. Appears very critical. WBC count is improved to 7.8, platelet count of 35. BUN /creatinine further elevated at 66/1.36. Patient not to be weaker on the right upper and lower extremity-I do not see any history of CVA. Will check CT of the head stat. Patient is not a candidate for TPA due to severe thrombocytopenia, so will not initiate stroke alert. Breathing slightly labored 06/29: Clinically deteriorating very lethargic tachypneic. ABG shows significant hypoxia. Chest x-ray shows worsening bilateral infiltrates/edema. I had discussed with daughters yesterday they wanted to continue full code, patient is encephalopathy again unable to make any decisions at this time. Give additional 20 mg of IV Lasix and continue scheduled 20 mg twice daily. If not improving in the next 45-60 minutes will need endotracheal intubation 06/30: Severely septic lady who is intubated for severe respiratory failure on 10 /7/18. Likely has acute lung injury from severe sepsis. FiO2 remains high at 65% to maintain sat above 90%. Chest x-ray is pending at this time WBC count 16 , sodium is 150, BUN 67 creatinine 1.3. Urine output adequate with Lasix 07/01 Patient remains intubated and sedated with Versed drip 3mg/hr, on Amio drip and TPN. s/p 1u PLT pheresis yesterday PLT count 12 this morning. 07/02 Patient is sedated with Versed and intubated. Afebrile, on Amio drip.s/p 1u PLT transfusion yesterday 07/03 No events overnight. Off sedation. Tolerated CPAP x 6 hrs yesterday. Afebrile. 07/04 No events overnight. Remains off sedation more awake. Afebrile. 07/05 Patient remains intubated tolerated CPAP all day yesterday. Not moving right side. CT brain yesterday interval development of multiple lucencies involving the left frontal and parietal lobes not present on the prior study from 6 days ago most likely multifocal areas of infarction possibly embolic episode without any hemorrhage or mass effect. Underlying metastatic disease is not excluded. 07/06 Patient remains intubated on CPAP with PS 15, PEEP:5 and FIO2: 40%. Afebrile. 07/07 Noeventsovernight. On CPAP overnight. Afebrile 07/08: Extubated compassionately overnight. Unresponsive on nasal cannula via mouth. DS: Diagnosis - Discharge Diagnosis (1) Acute kidney injury Status: Acute (2) Rectal cancer Status: Chronic (3) Nausea and vomiting Status: Acute (4) Stroke Status: Acute DS: Summary Hospital Course: 72-year-old female with past medical history of anorectal squamous cell carcinoma, mixed connective tissue disease (SLE, Reynaud's, Polymyositis), remote cervical cancer status post hysterectomy, hypothyroid . She originally developed anal pain and bleeding in January of 2018. She was referred to Dr. Coelho who performed biopsy of anal mass on 04/25/18 which demonstrated invasive squamous cell carcinoma. Outpatient PET reportedly showed no local or distant metastatic disease. She has been undergoing radiation therapy under the care of Dr Concepcion. Concurrent chemotherapy is planned for week 1 and 5 of radiation; and she completed first chemo cycle 06/13/18. She has reportedly been having loose watery stools for several days, difficult to determine exact time of onset. She has also had abdominal pain. When she presented for radiation treatment on 06/25, she was weak and hypotensive so she was sent to the ED. She was pancytopenic with ANC 768. CT abd/pelvis showed fluid filled small bowel c/ w partial SBO or ileus. She was admitted to hospitalist service. Blood cultures were obtained 09/25 which have now resulted + pseudomonas in / bottles. She was started on cefepime 2 gram IV and vancomycin per hematology. Tmax was 101.2 Director Occupational consult has been requested. She has a RUE PICC placed 06/09 which does not have overt clinical signs of infection, but will be removed. 06/27 Patient is lethargic on Amio drip ( HR now controlled) Afebrile. 06/28 patient lying on bed very lethargic remains on amiodarone infusion. Appears very critical. WBC count is improved to 7.8, platelet count of 35. BUN /creatinine further elevated at 66/1.36. Patient not to be weaker on the right upper and lower extremity-I do not see any history of CVA. Will check CT of the head stat. Patient is not a candidate for TPA due to severe thrombocytopenia, so will not initiate stroke alert. Breathing slightly labored 06/29: Clinically deteriorating very lethargic tachypneic. ABG shows significant hypoxia. Chest x-ray shows worsening bilateral infiltrates/edema. I had discussed with daughters yesterday they wanted to continue full code, patient is encephalopathy again unable to make any decisions at this time. Give additional 20 mg of IV Lasix and continue scheduled 20 mg twice daily. If not improving in the next 45-60 minutes will need endotracheal intubation 06/30: Severely septic lady who is intubated for severe respiratory failure on . Likely has acute lung injury from severe sepsis. FiO2 remains high at 65% to maintain sat above 90%. Chest x-ray is pending at this time WBC count 16 , sodium is 150, BUN 67 creatinine 1.3. Urine output adequate with Lasix 07/01 Patient remains intubated and sedated with Versed drip 3mg/hr, on Amio drip and TPN. s/p 1u PLT pheresis yesterday PLT count 12 this morning. 07/02 Patient is sedated with Versed and intubated. Afebrile, on Amio drip.s/p 1u PLT transfusion yesterday 07/03 No events overnight. Off sedation. Tolerated CPAP x 6 hrs yesterday. Afebrile. 07/04 No events overnight. Remains off sedation more awake. Afebrile. 07/05 Patient remains intubated tolerated CPAP all day yesterday. Not moving right side. CT brain yesterday interval development of multiple lucencies involving the left frontal and parietal lobes not present on the prior study from 6 days ago most likely multifocal areas of infarction possibly embolic episode without any hemorrhage or mass effect. Underlying metastatic disease is not excluded. 07/06 Patient remains intubated on CPAP with PS 15, PEEP:5 and FIO2: 40%. Afebrile. 07/07 Noeventsovernight. On CPAP overnight. Afebrile 07/08: Extubated compassionately overnight. Unresponsive on nasal cannula via mouth. - Time Spent with Patient Total time spent providing and/or coordinating discharge services: Less than 30 minutes - Quality: VTE Deep Vein Thrombosis/Pulmonary Embolism Present on Admission: No Exam Vital signs: Vital Signs 07/07/18 16:00 07/07/18 19:15 07/07/18 20:00 Temperature 100 F H Pulse Rate 119 H 110 H 110 H Respiratory Rate 29 H Blood Pressure 90/52 L Pulse Oximetry 92 L 07/08/18 00:00 07/08/18 04:00 07/08/18 07:15 Temperature 100.6 F H Pulse Rate 108 H 112 H 106 H Respiratory Rate 28 H Blood Pressure 85/53 L Pulse Oximetry 86 L 07/08/18 12:00 Temperature Pulse Rate 111 H Respiratory Rate Blood Pressure Pulse Oximetry Intake & Output 07/07/18 07/08/18 07/08/18 18:59 06:59 18:59 Intake Total 200 / 200 Output Total 1600 / 1600 250 / 250 Balance -1400 / -1400 -250 / -250 Weight 47 kg Intake: IV 200 / 200 Maxipime Inj 2,000 MG In NS Inj 100 / 100 100 ML @ 200 mls/hr IV.SIG Q8H PABLO Rx#:[id number] Flagyl 500 MG Inj 100 ML @ 100 100 / 100 mls/hr IV.SIG Q8H PABLO Rx#: [id number] Output: Urine Amount (Catheter) 1600 / 1600 250 / 250 Indwelling Urethral Catheter 1600 / 1600 250 / 250 Other: Date of Last Bowel Movement 07/06/18 07/06/18 07/06/18 - Constitutional no acute distress - Routine HEENT Exam Head: Present: normocephalic Eye: Present: EOMI ENT: Present: mucous membranes moist - Routine Neck Exam Present: supple, full ROM. Absent: JVD, carotid bruit - Routine Chest/Breast/Axilla Exam Chest wall: Absent: tenderness Breast: Absent: tenderness Axillae: Absent: lymphadenopathy - Routine Respiratory Exam Present: rhonchi. Absent: accessory muscle use - Routine Cardiovascular Exam Present: RRR, S1, S2 - Routine Abdominal Exam Present: soft, normoactive bowel sounds - Routine Extremities Exam Absent: cyanosis, clubbing, edema - Routine Skin Exam Present: intact - Routine Neurological Exam Present: motor deficit. Absent: alert, oriented X3, CN II-XII intact, sensory deficit Results Procedures completed during hospitalization: Left IJ CVL by Dr. Lawson 06/26 Completed studies during hospitalization: Laboratory Results WBC 13.8 th/mm3 (4.0-11.0) H 07/07/18 04:20 RBC 4.16 mil/mm3 (4.00-5.30) 07/07/18 04:20 Hgb 10.7 gm/dL (11.6-15.3) L 07/07/18 04:20 Hct 33.2 % (35.0-46.0) L 07/07/18 04:20 MCV 79.9 fL (80.0-100.0) L 07/07/18 04:20 MCH 25.6 pg (27.0-34.0) L 07/07/18 04:20 MCHC 32.1 % (32.0-36.0) 07/07/18 04:20 RDW 20.5 % (11.6-17.2) H 07/07/18 04:20 Plt Count 290 th/mm3 (150-450) D 07/07/18 04:20 MPV 9.7 fL (7.0-11.0) 07/07/18 04:20 Prelim Diff (Auto) Slide review pending 07/05/18 03:25 Neut % (Auto) 90.7 % (16.0-70.0) H 07/07/18 04:20 Lymph % (Auto) 1.0 % (9.0-44.0) L 07/07/18 04:20 [place] % (Auto) 8.1 % (0.0-8.0) H 07/07/18 04:20 Eos % (Auto) 0.0 % (0.0-4.0) 07/07/18 04:20 Baso % (Auto) 0.2 % (0.0-2.0) 07/07/18 04:20 Neut # (Auto) 12.6 th/mm3 (1.8-7.7) H 07/07/18 04:20 Lymph # (Auto) 0.1 th/mm3 (1.0-4.8) L 07/07/18 04:20 [place] # (Auto) 1.1 th/mm3 (0.0-0.9) H 07/07/18 04:20 Eos # (Auto) 0.0 th/mm3 (0.0-0.4) 07/07/18 04:20 Baso # (Auto) 0.0 th/mm3 (0.0-0.2) 07/07/18 04:20 WBC Differential . 07/07/18 04:20 Seg Neuts % (Manual) 77 % (16-70) H 07/05/18 03:25 Band Neuts % (Manual) 18 % (0-6) H 07/05/18 03:25 Lymphocytes % (Manual) 1 % (9-44) L 07/05/18 03:25 Monocytes % (Manual) 3 % (0-8) 07/05/18 03:25 Eosinophils % (Manual) 1 % (0-4) 07/02/18 05:00 Metamyelocytes % (Man) 1 % (0-1) 07/05/18 03:25 Myelocytes % (Man) 1 % (0-0) H 07/04/18 03:30 Promyelocytes % (Man) 1 % (0-0) H 07/03/18 05:00 Blast Cells % (Manual) 1 % (0-0) H 06/30/18 05:23 Plasma Cell % (Manual) 1 % (0-0) H 06/30/18 05:23 Abs Neuts (Manual) 16.5 th/mm3 (1.8-7.7) H 07/05/18 03:25 Nucleated RBCs/100 WBC 2 /100 WBC (0-0) H 07/02/18 05:00 Differential Comment Auto diff final 07/07/18 04:20 Toxic Granulation 1+ (None) H 06/29/18 04:40 Toxic Vacuolation Present (None) H 07/01/18 03:00 Dohle Bodies Present (None) H 06/30/18 05:23 Platelet Estimate Normal (Normal) 07/05/18 03:25 Platelet Morphology Normal (Normal) 07/05/18 03:25 RBC Morphology Normal (Normal) 06/26/18 03:04 Spherocytes Occ (None) H 06/30/18 05:23 Ovalocytes 1+ (None) H 07/05/18 03:25 Lily Cells 1+ (None) H 06/29/18 04:40 Acanthocytes (Spur) 1+ (None) H 07/05/18 03:25 Keratocytes Occ (None) H 07/04/18 03:30 PT 15.1 sec (9.8-11.6) H 06/27/18 10:45 INR 1.5 Ratio 06/27/18 10:45 APTT 35.7 sec (24.3-30.1) H 06/27/18 05:45 Fibrinogen 452 mg/dL (227-377) H 06/27/18 05:45 Puncture Site Right radial 07/01/18 08:31 Patient Temperature 98.6 07/01/18 08:31 O2 Saturation 97 % (90-100) 07/01/18 08:31 ABG pH 7.56 (7.380-7.420) H* 07/01/18 08:31 ABG pCO2 32 mmHg (38-42) L 07/01/18 08:31 ABG pO2 185 mmHG (61-120) H 07/01/18 08:31 ABG HCO3 28 mmol/L (22-26) H 07/01/18 08:31 ABG O2 Content 16.6 Vol % (12.0-20.0) 07/01/18 08:31 ABG Base Excess 5.6 mmol/L (-2-2) H 07/01/18 08:31 ABG Methemoglobin 1.8 % (0-2) 07/01/18 08:31 Flako Test Present 07/01/18 08:31 Hemoglobin 12.0 G/DL (12.0-16.0) 07/01/18 08:31 Carboxyhemoglobin 0.4 % (0-4) 07/01/18 08:31 O2 Delivery Device Ventilator 07/01/18 08:31 Liter Flow 6.00 L/M 06/29/18 09:24 Vent Setting See comments 07/01/18 08:31 Inspired O2 45 % 07/01/18 08:31 Critical Value Yes 07/01/18 08:31 Sodium 144 meq/L (136-145) 07/07/18 04:20 Potassium 3.7 meq/L (3.5-5.1) 07/07/18 04:20 Chloride 108 meq/L (98-107) H 07/07/18 04:20 Carbon Dioxide 28.9 meq/L (21.0-32.0) 07/07/18 04:20 Anion Gap 7 meq/L (5-15) 07/07/18 04:20 BUN 48 mg/dL (7-18) H 07/07/18 04:20 Creatinine 0.69 mg/dL (0.50-1.00) 07/07/18 04:20 Estimated GFR 84 mL/min (>89) L 07/07/18 04:20 POC Glucose 142 mg/dl (68-110) H 07/07/18 12:18 Random Glucose 130 mg/dL (74-106) H 07/07/18 04:20 Lactic Acid 2.0 mmol/L (0.4-2.0) 06/30/18 08:00 Calcium 9.0 mg/dL (8.5-10.1) 07/07/18 04:20 Prot Corrected Calcium 7.7 mg/dL (8.5-10.1) L 07/02/18 05:00 Phosphorus 2.5 mg/dL (2.5-4.9) 07/07/18 04:20 Magnesium 2.0 mg/dL (1.5-2.5) 07/07/18 04:20 Total Bilirubin 0.8 mg/dL (0.2-1.0) 07/07/18 04:20 AST 17 U/L (15-37) 07/07/18 04:20 ALT 19 U/L (10-53) 07/07/18 04:20 Alkaline Phosphatase 84 U/L (45-117) 07/07/18 04:20 Total Creatine Kinase 137 U/L (26-192) 06/27/18 10:45 Total Protein 7.4 g/dL (6.4-8.2) 07/07/18 04:20 Albumin 4.1 g/dL (3.4-5.0) 07/07/18 04:20 Triglycerides 132 mg/dL (42-150) 06/27/18 10:45 Lipase 25 U/L (73-393) L 06/25/18 12:10 TSH 0.984 uIU/mL (0.358-3.740) 06/27/18 10:45 Ur Collection Type Cancelled 06/25/18 15:15 Urine Color Yellow (Yellw/Straw) 06/27/18 16:55 Urine Clarity Cloudy (Clear) H 06/27/18 16:55 Urine pH 5.0 (5.0-8.5) 06/27/18 16:55 Ur Specific [place] 1.015 (1.002-1.035) 06/27/18 16:55 Urine Protein 100 mg/dL (Neg-Trace) H 06/27/18 16:55 Urine Glucose (UA) 50 mg/dL (Negative) 06/27/18 16:55 Urine Ketones Negative mg/dL (Negative) 06/27/18 16:55 Urine Occult Blood Large (Negative) H 06/27/18 16:55 Urine Nitrate Negative (Negative) 06/27/18 16:55 Urine Bilirubin Negative (Negative) 06/27/18 16:55 Urine Ictotest Cancelled 06/25/18 15:15 Urine Urobilinogen Less than 2 mg/dL (Less than 2) 06/27/18 16:55 Ur Leukocyte Esterase Moderate (Negative) H 06/27/18 16:55 Urine RBC 35 /hpf (0-3) H 06/27/18 16:55 Urine WBC /hpf (0-5) 06/27/18 16:55 Urine WBC Clumps Few (None) H 06/27/18 16:55 Ur Squamous Epith Cells Cancelled 06/25/18 15:15 Ur Transition Epith Cell Cancelled 06/25/18 15:15 Ur Renal Epithelial Cell Cancelled 06/25/18 15:15 Calcium Carbonate Cryst Cancelled 06/25/18 15:15 Calcium Oxalate Crystal Cancelled 06/25/18 15:15 Leucine Crystals Cancelled 06/25/18 15:15 Cystine Crystals Cancelled 06/25/18 15:15 Uric Acid Crystals Cancelled 06/25/18 15:15 Triple Phos Crystals Cancelled 06/25/18 15:15 Cholesterol Crystals Cancelled 06/25/18 15:15 Tyrosine Crystals Cancelled 06/25/18 15:15 Amorphous Sediment Cancelled 06/25/18 15:15 Urine Bacteria Cancelled 06/25/18 15:15 Hyaline Casts Cancelled 06/25/18 15:15 Granular Casts 4 /lpf (None) 06/27/18 16:55 Fine Granular Casts Cancelled 06/25/18 15:15 Coarse Granular Casts Cancelled 06/25/18 15:15 Waxy Casts Cancelled 06/25/18 15:15 RBC Casts Cancelled 06/25/18 15:15 WBC Casts Cancelled 06/25/18 15:15 Urine Mucus Few /lpf (Occasional) H 06/27/18 16:55 Urine Trichomonas Cancelled 06/25/18 15:15 Urine Yeast Cancelled 06/25/18 15:15 Ur Yeast w Hyphae Cancelled 06/25/18 15:15 Urine Sperm Cancelled 06/25/18 15:15 Ur Oval Fat Bodies Cancelled 06/25/18 15:15 Micro UA Comment Cath-culture ind 06/27/18 16:55 Ur Microscopic Review Not Reportable 06/27/18 16:55 Urine Culture Comments Cath-cult indicated 06/27/18 16:55 Urine Eosinophils None seen /HPF (None Seen) 06/27/18 16:55 Urine Collection Time Cancelled 06/25/18 15:15 Urine Comment Cancelled 06/25/18 15:15 Nasal Screen MRSA (PCR) Not detected (Negative) 06/25/18 16:30 Stool C.difficile Ag Positive (Negative) H 06/27/18 16:55 Stool C.difficile Toxin Negative (Negative) 06/27/18 16:55 Stl C.difficile DNA Amp Negative (Negative) 07/04/18 18:30 St C. diff Tox Epid 027 Negative (Negative) 07/04/18 18:30 MTS Gel Crossmatch See Detail 06/25/18 12:21 Bld Prod Order Comment 07/01/18 09:47 Impressions Abdomen/Pelvis CT 06/28/18 00:00 CONCLUSION: 1. Colonic diverticula. 2. Persistent 4.6 cm left adnexal cystic mass. 3. Distended gallbladder. 4. Cortical calcic location seen at the left kidney with some cortical thinning. There are multiple left-sided renal masses likely related to cysts although they're nonspecific on this noncontrast CT examination. Chest CT 06/28/18 00:00 CONCLUSION: 1. Development of moderate bilateral pleural effusions being worse in the right. 2. Areas of consolidation or atelectasis at the posterior lower lungs. Given the effusions is likely represent areas of atelectasis. 3. Consolidation and bronchiectasis in the right upper lung. This was present on the prior exam. It appears to progress. 4. Distended esophagus throughout the chest. Venous Doppler Study 06/29/18 00:00 CONCLUSION: Mild nonocclusive thrombus in the right axillary vein to the brachial vein. Abdomen X-Ray 07/02/18 00:00 CONCLUSION: No dilated bowel loops to suggest ileus. Chest X-Ray 07/03/18 00:00 CONCLUSION: 1. Bilateral perihilar and right lower lobe airspace disease not significant change. 2. Rounded density overlying the left upper lung could be external to patient. Attention to this area on follow-up studies recommended. Head CT 07/04/18 00:00 CONCLUSION: Interval development of multiple lucencies involving the left frontal and parietal lobes not present on the prior study from 6 days ago most likely multifocal areas of infarction possibly embolic episode without any hemorrhage or mass effect. Underlying metastatic disease is not excluded and further characterization with brain MRI with and without contrast is recommended. Findings were discussed with the patient's nurse, Nelsy on 2017 at 21:40 hours at the time of this dictation. Head MRI 07/05/18 00:00 CONCLUSION: 1. Multifocal infarcts as noted above. Given the multiplicity and bilaterality this suggests possible embolic infarcts versus vasculitis. Comparison MRA demonstrated narrowing of the left M2 segment. Head MRA 07/05/18 00:00 CONCLUSION: 1. Decreased caliber of the left M2 segment of the MCA corresponding with the areas of hypoattenuation on comparison CT. Findings are concerning for multifocal acute infarct. Neck MRA 07/05/18 00:00 CONCLUSION: 1. Negative MRA Carotids. Percent stenosis is calculated using the diameter of the stenotic region over the diameter of the normal distal internal carotid artery Pending studies at discharge: None Labs on day of discharge: Preliminary micro results at discharge 07/06/18 08:01 Aerobic Blood Culture - Preliminary Blood - Peripheral No growth in 2 days Anaerobic Blood Culture - Preliminary No growth in 2 days 07/06/18 04:30 Aerobic Blood Culture - Preliminary Blood - Peripheral No growth in 2 days Anaerobic Blood Culture - Preliminary No growth in 2 days - Impressions ITS Impressions Abdomen/Pelvis CT 06/28/18 00:00 CONCLUSION: 1. Colonic diverticula. 2. Persistent 4.6 cm left adnexal cystic mass. 3. Distended gallbladder. 4. Cortical calcic location seen at the left kidney with some cortical thinning. There are multiple left-sided renal masses likely related to cysts although they're nonspecific on this noncontrast CT examination. Chest CT 06/28/18 00:00 CONCLUSION: 1. Development of moderate bilateral pleural effusions being worse in the right. 2. Areas of consolidation or atelectasis at the posterior lower lungs. Given the effusions is likely represent areas of atelectasis. 3. Consolidation and bronchiectasis in the right upper lung. This was present on the prior exam. It appears to progress. 4. Distended esophagus throughout the chest. Venous Doppler Study 06/29/18 00:00 CONCLUSION: Mild nonocclusive thrombus in the right axillary vein to the brachial vein. Abdomen X-Ray 07/02/18 00:00 CONCLUSION: No dilated bowel loops to suggest ileus. Chest X-Ray 07/03/18 00:00 CONCLUSION: 1. Bilateral perihilar and right lower lobe airspace disease not significant change. 2. Rounded density overlying the left upper lung could be external to patient. Attention to this area on follow-up studies recommended. Head CT 07/04/18 00:00 CONCLUSION: Interval development of multiple lucencies involving the left frontal and parietal lobes not present on the prior study from 6 days ago most likely multifocal areas of infarction possibly embolic episode without any hemorrhage or mass effect. Underlying metastatic disease is not excluded and further characterization with brain MRI with and without contrast is recommended. Findings were discussed with the patient's nurse, Nelsy on 2017 at 21:40 hours at the time of this dictation. Head MRI 07/05/18 00:00 CONCLUSION: 1. Multifocal infarcts as noted above. Given the multiplicity and bilaterality this suggests possible embolic infarcts versus vasculitis. Comparison MRA demonstrated narrowing of the left M2 segment. Head MRA 07/05/18 00:00 CONCLUSION: 1. Decreased caliber of the left M2 segment of the MCA corresponding with the areas of hypoattenuation on comparison CT. Findings are concerning for multifocal acute infarct. Neck MRA 07/05/18 00:00 CONCLUSION: 1. Negative MRA Carotids. Percent stenosis is calculated using the diameter of the stenotic region over the diameter of the normal distal internal carotid artery Discharge Plan - Discharge Disposition Patient Disposition: [facility] - Discharge Condition Condition: Critical - Discharge Order Discharge Orders: Discharge Order (Routine); Ordered 07/08/18 Ordered By: Kevin Hatfield - Discharge Details Anticipated Discharge Date: 07/08/18 - Physicians Team Primary Care Provider: Lie Palomo Attending Provider: Nav Guaman Other Providers: Deniz Coelho MD ; Gabi Ramirez MD ; Mirtha Etienne MD ; Kevin Hatfield MD ; Dorothy Aldana MD ; Batool Tilley MD
== END 2018-07-08 14:45 | disposition hospice, inpatient (51) ==
LOC: NEPE 11:42 → NEDA 13:59 → HIMC 16:28
PROVIDERS: ADMIT Internal Medicine; ATTEND Internal Medicine